=== PATIENT | female | born 1950 | race Caucasian/White ===

== ENCOUNTER 2023-07-16 13:01 | Emergency (ER) | payer SELFPAY ==
[2023-07-16 13:07] VITALS: BP 177/99; PULSE 72; RESP 20; TEMP 36.6; O2SAT 99
[2023-07-16 14:05] VITALS: PULSE 74; RESP 19; TEMP 36.5; O2SAT 97
--- NOTE | 2023-07-16 15:09 | ED.GENADUL_ITS ---
Discharge Plan Disposition Patient Disposition: Home Discharge Details Clinical Impression: History of shingles Primary Care Provider: Unknown,Unknown ED Provider: Katelin Akins Home Meds and New Rx's Prescriptions: New valacyclovir [Valtrex] 1 gram tablet 1,000 mg PO Q8H Qty: 21 0RF Discharge Instructions Additional Instructions: Take the Valtrex as prescribed Apply Benadryl topically, may apply hydrocortisone Wash your hands frequently Stay away from the elderly, people who have not had chickenpox or vaccine, immune suppressed, until lesions crusted over completely Return with spreading redness, fever, worsening pain Medical Decision Making Alert, oriented, pleasant 73-year-old female with dermatomal distribution of rash, vesicular in appearance without evidence of secondary cellulitis, afebrile and nontoxic Appearance of shingles, started on Valtrex, within a 48-hour period of onset Denies headache and alert and oriented, encouraged to have blood pressure rechecked by primary care physician Placed on referral list for PCP follow-up Return precautions reviewed and patient expressed understanding HPI General Date/Time Provider Initiated Documentation: 07/16/23 13:36 . HPI Narrative: This 73-year-old female presents with left lower abdominal and back pain with rash. For the past 2 days this has been present. She states also itchy. Denies fever or chills. States she is otherwise healthy, just relocated to the area. Did not receive shingles vaccine. Denies fever or chills Related Data Home Medications Medication Instructions Recorded Confirmed valacyclovir 1 gram tablet 1,000 mg PO Q8H #21 tabs 07/16/23 (Valtrex) Previous Rx's Medication Instructions Recorded valacyclovir 1 gram tablet 1,000 mg PO Q8H #21 tabs 07/16/23 (Valtrex) Allergies Allergy/AdvReac Type Severity Reaction Status Date / Time No Known Allergies Allergy Unverified 07/16/23 13:11 General Stated Complaint: [facility] AMY: 4 PFSH All Active Problems (Updated 07/16/23 @ 13:57 by MARIAM Swartz) History of shingles (Acute) Social History Smoking/Tobacco Use Status: Current every day Tobacco Type: cigarettes Smoking risk assessment performed?: Yes Alcohol Intake: current Substance use type: does not use Course Vital Signs Vital signs: Vital Signs Temperature 36.6 C 07/16/23 13:07 Pulse 72 07/16/23 13:07 Respiratory Rate 20 07/16/23 13:07 Blood Pressure 177/99 H 07/16/23 13:07 Pulse Oximetry 99 07/16/23 13:07 Temperature 36.5 C 07/16/23 14:05 Temperature Source Oral 07/16/23 13:07 Pulse 74 07/16/23 14:05 Respiratory Rate 19 07/16/23 14:05 Respiratory Effort Normal 07/16/23 13:12 Blood Pressure 177/99 H 07/16/23 13:07 Blood Pressure Position Sitting 07/16/23 13:07 Pulse Oximetry 97 07/16/23 14:05 Oxygen Delivery Method Room Air 07/16/23 13:07 Oxygen Flow Rate 0 07/16/23 13:07 Pain Level 0 07/16/23 14:05
--- NOTE | 2023-07-16 15:20 | NUR.NOTE ---
Sent a request to [employer] to help patient establish a primary care provider. Unfortunately the patient does not have a listed phone number for me to list.
== END 2023-07-16 14:10 | disposition home or self-care (01) ==
PROVIDERS: Emergency Provider Physician Assistant
DX: B02.9 Zoster without complications; R10.32 Left lower quadrant pain; M54.9 Dorsalgia, unspecified; F17.200 Nicotine dependence, unspecified, uncomplicated
CPT/HCPCS: 99282; 99283

== ENCOUNTER 2023-11-06 14:44 | Outpatient (REF) | payer MEDICARE, MEDICAID, SELFPAY ==
[2023-11-01 16:26] LABS: ALT 16 U/L (14-59); AST 13 U/L (15-37); Albumin 3.8 g/dL (3.4-5.0); Alkaline Phosphatase 123 U/L (46-116); Anion Gap 14.3 mmol/L (3-11); BUN 23 mg/dL (7-18); Bilirubin, Total 0.5 mg/dL (0.2-1.0); CO2 22.7 mmol/L (21.0-32.0); CREATININE 1.5 mg/dL (0.55-1.02); Calcium 9.9 mg/dL (8.5-10.1); Chloride 106 mmol/L (98-107); Estimated GFR 36.57 (mL/min/1.73m2); Glucose 125 mg/dL (74-106); Sodium 143 mmol/L (136-145); Total Protein 7.2 g/dL (6.4-8.2)
--- OUTSIDE RECORDS SUMMARY | 2023-11-06 14:47 | XMS_ITS | Continuity of Care Document ---
Author Name Unknown Organization [facility] Address [address] [place] [address] [facility] Date[facility] 07/06/23 - 07/06/23 [facility] [address] [place] [address] [place] Discharge Disposition: Home or Self Care Attending Physician: Braxton Medeiros MD Admitting Physician: Braxton Medeiros MD Allergies, Adverse Reactions, Alerts No Known Medication Allergies Assessment and Plan Diagnostic Tests Pending * Urine Culture 07/06/23 Medications No Known Medications Results Laboratory List Name Date Urinalysis Microscopic 07/06/23 Urinalysis with Micro if Indicated and C ulture if Indicated 07/06/23 CBC w/o Diff 07/06/23 Comprehensive Metabolic Panel (CMP) 06/22 02/11 Most recent to oldest [Reference Range]: 1 WBC [5.0-10.0 x10^3/mcL] 7.8 x10^3/mcL (07/06/23 6:52 PM) RBC [4.1-5.3 x10^6/mcL] 5.1 x10^6/mcL (07/06/23 6:52 PM) BUN [7-18 mg/dL] 15 mg/dL (07/06/23 6:52 PM) UA Color Yellow (07/06/23 6:57 PM) UA WBC [0-3] 3-5 *ABN* (07/06/23 6:57 PM) Glucose Level [74-106 mg/dL] 160 mg/dL *HI* (07/06/23 6:52 PM) Potassium Level [3.5-5.1 mmol/L] 3.1 mmo l/L *LOW* (07/06/23 6:52 PM) MCV [80.0-96.0 fL] 93.4 fL (07/06/23 6:52 PM) UA Urobilinogen Normal (07/06/23 6:57 PM) UA Bili [Negative] 1+ *ABN* (07/06/23 6:57 PM) UA Ketones Negative (07/06/23 6:57 PM) AST [15-37 unit/L] 17 unit/L (07/06/23 6:52 PM) ALT [14-59 unit/L] 23 unit/L (07/06/23 6:52 PM) MCHC [31.0-35.0 g/dL] 34.8 g/dL (07/06/23 6:52 PM) Sodium Level [136-145 mmol/L] 139 mmol/L (07/06/23 6:52 PM) UA RBC [0-2] 0-2 (07/06/23 6:57 PM) UA Leuk Est Negative (07/06/23 6:57 PM) UA Nitrite Negative (07/06/23 6:57 PM) UA Glucose [Negative] Negative (07/06/23 6:57 PM) Hct [37.0-47.0 %] 48.0 % *HI* (07/06/23 6:52 PM) UA Bacteria Rare /HPF (07/06/23 6:57 PM) Calcium Level [8.5-10.1 mg/dL] 8.9 mg/dL (07/06/23 6:52 PM) Albumin Level [3.4-5.0 g/dL] 3.5 g/dL (07/06/23 6:52 PM) Protein Total [6.4-8.2 g/dL] 7.1 g/dL (07/06/23 6:52 PM) UA Protein 2+ *ABN* (07/06/23 6:57 PM) MCH [26.0-32.0 pg] 32.5 pg *HI* (07/06/23 6:52 PM) Bilirubin Total [0.2-1.0 mg/dL] 1.2 mg/d L *HI* (07/06/23 6:52 PM) Hgb [12.0-16.0 g/dL] 16.7 g/dL *HI* (07/06/23 6:52 PM) Alk Phos [46-146 unit/L] 129 unit/L (07/06/23 6:52 PM) UA Blood Trace *ABN* (07/06/23 6:57 PM) UA Mucous None Seen /HPF (07/06/23 6:57 PM) UA Spec Grav 1.025 *NA* (07/06/23 6:57 PM) Platelets [130-450 x10^3/mcL] 206 x10^3/ mcL (07/06/23 6:52 PM) CO2 [21-32 mmol/L] 28 mmol/L (07/06/23 6:52 PM) UA Squam Epithelial [None Seen] Moderate *ABN* (07/06/23 6:57 PM) UA pH 6.5 *NA* (07/06/23 6:57 PM) eGFR Non-AA [>=60] 43 *LOW* (07/06/23 6:52 PM) eGFR AA [>=60] 43 *LOW* (07/06/23 6:52 PM) UA Appear Hazy *ABN* (07/06/23 6:57 PM) Chloride Level [98-107 mmol/L] 103 mmol/ L (07/06/23 6:52 PM) RDW-CV [11.5-14.5 %] 12.9 % (07/06/23 6:52 PM) UA Culture Ind?. Indicated (07/06/23 6:57 PM) Creatinine Level [0.55-1.02 mg/dL] 1.30 mg/dL *HI* (07/06/23 6:52 PM) UA Yeast [None Seen] Rare *ABN* (07/06/23 6:57 PM) Vital Signs Most recent to oldest [Reference Range]: 1 2 3 Temperature Temporal Artery [36-38 Deg C] 36.7 Deg C (07/06/23 6:03 PM) Peripheral Pulse Rate [60-100 bpm] 73 bpm (07/06/23 10:24 PM) 90 bpm (07/06/23 10:05 PM) 86 bpm (07/06/23 9:31 PM) Heart Rate Monitored [60-100 bpm] 77 bpm (07/06/23 10:24 PM) 84 bpm (07/06/23 10:05 PM) 86 bpm (07/06/23 9:31 PM) Respiratory Rate [12-24 br/min] 16 br/min (07/06/23 10:24 PM) 22 br/min (07/06/23 10:05 PM) 18 br/min (07/06/23 9:31 PM) Blood Pressure [90-140/60-90 mmHg] 229/117mmHg *HI* (07/06/23 10:24 PM) 191/112mmHg *HI* (07/06/23 10:05 PM) 140/127mmHg (07/06/23 8:44 PM) Weight 49.70 kg (07/06/23 6:03 PM) Weight Dosing 49.70 kg (07/06/23 6:13 PM) Height 147.000 cm (07/06/23 6:03 PM) Height/Length Dosing 147.000 cm (07/06/23 6:13 PM) Body Mass Index 23.000 kg/m2 (07/06/23 6:03 PM) Social History Social History Type Response Tobacco Current everyday tob acco user Tobacco Use:. 1/2 ppd per day. Sex EKG study * Event Display: Telemetry Strips Please click on link to view image. * Event Display: Telemetry Strips Please click on link to view image. * Event Display: Telemetry Strips Please click on link to view image. * Event Display: Telemetry Strips Please click on link to view image. * Event Display: Telemetry Strips Please click on link to view image. Physician Emergency department Note * Rudy Hurtado MD: PERFORM Event Display: ED Note Physician Authored Date: [id number] RIGO AMBRIZ :1950 Age:73 years Sex:Female Visit Date:07/06/2023 Emergency Medicine Physician Handoff Note Verbal report from ??Sung??at 9:02:05 PM, 07/06/2023. Summary:??73 y/o w/ 1 day LUQ abd pain, abdominal exam is benign, patient is taking p.o. well at time of patient care transferred. Vitals and completed studies were jointly reviewed, these are notable for:?HR 86, RR 15, BP 215/91, T 36.7?C, SaO2 97% on room air. ?WBC 7.8, Hb 16.7, sodium 139, potassium 3.1, AST 17, ALT 23, ALP 129, total bilirubin 1.2, creatinine 1.30. ?Urinalysis with rare bacteria, moderate squamous epithelial cells, negative nitrate, negative leukocyte esterase. ?? Pending:??CT abd/pelvis.? Anticipated disposition: Disposition per repeat evaluation and imaging. ?? Evaluation:?? I independently reviewed the prior provider's chart, nursing and triage note(s), vitals - and when available - labs, EKGs, and imaging studies.? CT abdomen/pelvis: No acute findings.? 10:15 PM repeat evaluation patient resting comfortably, notes that her symptoms have resolved in the ER, she is taking p.o. well, is ambulatory without discomfort, and she has no chest pain or shortness of breath (nor throughout the entire symptom course). ?? Disposition: Discharged with PCP follow-up recommended. ?? Impression: Abdominal pain. Electronically Signed on 07/06/23 10:19 PM Rudy Hurtado MD * Satinder Almaraz MD: PERFORM Event Display: ED Note Physician Authored Date: [id number] RIGO AMBRIZ :1950 Age:73 years Sex:Female Visit Date:07/06/2023 Basic Information Time Seen: Satinder Almaraz MD / 07/06/2023 18:45 Chief Complaint pt states that since yesterday has had some lower abdominal pain on the left side. no n/v/d. last BM yesterday, pt states was normal. no CP, no SOB. pressure on the area helps with pain History Of Present Illness: Presenting concern is abdominal pain. ??Time of onset is 1 day prior to admission. ??Rate of onset is gradual. ??Initial location is left upper quadrant. ??Current location is the same.?? Initial intensity is 6/10. ??Current intensity is 8/10.?? Quality of the pain is pressure. ??Radiation is none. ??Precipitating factors are none. ??Aggravating factors are none.?? Alleviating factors are none. ??Prior treatment is none.?? Course waxes and wanes. ??No similar prior episodes. ?? Thank you Review of Systems: Review of systems is negative for??fever, fatigue, chest pain, shortness of breath, nausea, vomiting, bowel problems, urinary symptoms, abnormal bleeding, headache.?? Patient does endorse decreased appetite??and new mild rhinorrhea. Physical Exam Vitals & Measurements T:??36.7?C ??(Temporal Artery)?? HR:??72??(Peripheral)?? HR:??71??(Monitored)?? RR:??24?? BP:??140/127?? SpO2:??98%?? HT:??147.000??cm?? WT:??49.70??kg?? BMI:??23.000?? Pain Score:??3?? O2 Therapy:??Room air?? Mental status normal. ??No respiratory distress.?? Chest auscultation is normal. ??Heart auscultation is normal.?? Back palpation is normal. ??Abdomen is soft and??minimal left upper quadrant tenderness.?? Extremities are normal. Medical Decision Making: At this point in the evaluation the problem complexity is low.?? Data complexity is low. ??Management risk are low. ??[facility] coding 18742.?? Patient is signed out to the care of ??Elan Gibbs. Procedure No Qualifying Data Assessment/Plan Ordered: CT Abdomen and Pelvis w/ Contrast, 07/06/23 19:42:00 EDT, Stat, Reason: luq pain, please include oral contrast, Transport Mode: Stretcher, Exam to be performed outside organization? Urine Culture, Urine, Stat collect, ST - Stat, 07/06/23 18:57:00 EDT, Once, Nurse collect, Collected, 07/06/23 18:57:00 EDT, Print Label, [id number] Diagnosis at this point in the evaluation is left upper quadrant pain of uncertain etiology. Problem List/Past Medical History Ongoing No qualifying data Historical No qualifying data Medication Administration Given acetaminophen, 1000 mg, IV Piggyback Allergies No Known Medication Allergies Social History Electronic Cigarette/Vaping Electronic Cigarette Use: Never. Tobacco Current everyday tobacco user Tobacco Use:. 1/2 ppd per day. Lab Results CBC and Differential?? LATEST RESULTS?? WBC?? 07/06/23 18:52?? 7.8?? RBC?? 07/06/23 18:52?? 5.1?? Hgb?? 07/06/23 18:52?? 16.7 ??High?? Hct?? 07/06/23 18:52?? 48.0 ??High?? MCV?? 07/06/23 18:52?? 93.4?? MCH?? 07/06/23 18:52?? 32.5 ??High?? MCHC?? 07/06/23 18:52?? 34.8?? RDW-CV?? 07/06/23 18:52?? 12.9?? Platelets?? 07/06/23 18:52?? 206? Routine Chemistry?? LATEST RESULTS?? Sodium Level?? 07/06/23 18:52?? 139?? Potassium Level?? 07/06/23 18:52?? 3.1 ??Low?? Chloride Level?? 07/06/23 18:52?? 103?? CO2?? 07/06/23 18:52?? 28?? Alk Phos?? 07/06/23 18:52?? 129?? AST?? 07/06/23 18:52?? 17?? ALT?? 07/06/23 18:52?? 23?? BUN?? 07/06/23 18:52?? 15?? Glucose Level?? 07/06/23 18:52?? 160 ??High?? Creatinine Level?? 07/06/23 18:52?? 1.30 ??High?? eGFR AA?? 07/06/23 18:52?? 43 ??Low?? eGFR Non-AA?? 07/06/23 18:52?? 43 ??Low?? Calcium Level?? 07/06/23 18:52?? 8.9?? Protein Total?? 07/06/23 18:52?? 7.1?? Albumin Level?? 07/06/23 18:52?? 3.5?? Bilirubin Total?? 07/06/23 18:52?? 1.2 ??High? UA Macroscopic?? LATEST RESULTS?? UA Color?? 07/06/23 18:57?? Yellow?? UA Appear?? 07/06/23 18:57?? Hazy Abnormal?? UA Glucose?? 07/06/23 18:57?? Negative?? UA Bili?? 07/06/23 18:57?? 1+ Abnormal?? UA Ketones?? 07/06/23 18:57?? Negative?? UA Spec Grav?? 07/06/23 18:57?? 1.025?? UA Blood?? 07/06/23 18:57?? Trace Abnormal?? UA pH?? 07/06/23 18:57?? 6.5?? UA Protein?? 07/06/23 18:57?? 2+ Abnormal?? UA Urobilinogen?? 07/06/23 18:57?? Normal?? UA Nitrite?? 07/06/23 18:57?? Negative?? UA Leuk Est?? 07/06/23 18:57?? Negative?? UA Culture Ind?.?? 07/06/23 18:57?? Indicated? UA Microscopic?? LATEST RESULTS?? UA WBC?? 07/06/23 18:57?? 3-5 Abnormal?? UA RBC?? 07/06/23 18:57?? 0-2?? UA Squam Epithelial?? 07/06/23 18:57?? Moderate Abnormal?? UA Yeast?? 07/06/23 18:57?? Rare Abnormal?? UA Mucous?? 07/06/23 18:57?? None Seen?? UA Bacteria?? 07/06/23 18:57?? Rare? Electronically Signed on 07/06/23 09:22 PM Almaraz, Satinder Garrick MD Emergency department Discharge instructions * Rudy Hurtado MD: PERFORM Event Display: ED Discharge Information Authored Date: [id number] RIGO AMBRIZ :1950 Age:73 years Sex:Female Visit Date:07/06/2023 Discharge Instructions We would like to thank you for allowing us to assist you with your healthcare needs. The following includes patient education materials and information regarding your injury/illness. ?? You were seen at [facility] for evaluation for evaluation of??abdominal pain. The time of your evaluation the cause of your symptoms is unclear. Please follow-up with your primary care physician on Friday or Friday for repeat evaluation and further care as needed.??Please read and follow all of the instructions below. ?? When calling for follow-up care, please make the office aware that this follow- up is from your recent emergency room visit.? Your care today was limited to identifying and treating emergent medical problems only. Many peoplehave subtle differences in their test results that require follow up with their outpatient physician(s) to correctly determine if this represents a normal variation or concerning abnormality with respect to your specific health.??The care given to you today was limited to identifying and treating emergent medical problems - you need to request a copy of all of your medical records from today's visit and follow up with your outpatient physician(s) to review both today's visit and your overall health. If you have any new symptoms or if you are at all concerned about your health please return immediately to the emergency department. ?? Prescriptions: If you are uninsured or have financial difficulties with filling your prescription(s), you may consider using a free pharmacy discount service such as [employer] ([employer]) or [employer] ([employer]). These services allow you to search for a medication on your phone (or computer) and obtain a coupon that usually has a significant discount from the [facility] [place] at a pharmacy. Your physician does not have a financial relationship with either of these services. You may also wish to speak with your physician to determine if lower cost prescriptions are possible. ?? Abdominal Pain The exact cause of your abdominal pain is not certain. Based upon the testing today you are felt brad at low risk for discharge. There are no current signs of a life threatening illness or injury. Your condition does not seem serious now; however, sometimes the signs of a serious problem may take more time to appear. For this reason, it is important for you to watch for any new symptoms, problems , or worsening of your condition. Over the next few days, the abdominal pain may come and go, or becontinuous. Other common symptoms can include nausea and vomiting. Sometimes it can be difficult totell if you feel nauseous, you may just feel bad and not associate that feeling with nausea. Constipation, diarrhea, and a fever may go along with the pain. The pain may continue even if treated correctly over the following days. Depending on how things go, sometimes the cause can become clear and may require further or different treatment. Additional evaluations, medications, or tests may be needed. ?? If your symptoms do not worsen but you are still having pain after 12-24 hours, please call your primary care physician to arrange for further evaluation.? Return to the emergency department if any of the following occur: ?Pain gets worse or moves to the right lower abdomen ?New or worsening vomiting or diarrhea ?Swelling of the abdomen ?Unable to pass gas or stool for more than 8 hours ?Fever of 100.4??F (38??C) or higher, or as directed by your healthcare provider. ?Blood in vomit or bowel movements (dark red or black color) ?If you have yellow skin or eyes or if you have dark brown urine. ?Weakness, dizziness ?Chest, arm, back, neck or jaw pain ?Unexpected vaginal bleeding or missed period ?Trouble breathing ?Confusion ?Fainting or loss of consciousness ?Rapid heart rate ?Seizure ?If you are light headed upon standing or passing out.?If you are otherwise concerned about your health. ?? Home Care ?Do not force yourself to eat, especially if having cramps, vomiting, or diarrhea. ?Water is important so you do not get dehydrated. Soup may also be good. Sports drinks may also help, especially if they are not too acidic. Make sure you don't drink sugary drinks as this can make things worse. Take liquids in small amounts.?Caffeine sometimes makes the pain and cramping worse. ?Avoid dairy products if you have vomiting or diarrhea. ?Don't eat large amounts at a time. Wait a few minutes between bites. ?Eat a diet low in fiber (called a low-residue diet). Foods allowed include refined breads, white rice, fruit and vegetable juices without pulp, tender meats. These foods will pass more easily through the intestine. ?Avoid whole-grain foods, whole fruits and vegetables, meats, seeds and nuts, fried or fatty foods, dairy, alcohol and spicy foods until your symptoms go away. ? Discharge Vitals Temperature??(Temporal Artery) 98.1 ??F (36.7 ??C) Heart Rate??(Peripheral) 90 Heart Rate??(Monitored) 84 Respiratory Rate?? 22 Blood Pressure?? 191/112?? Height?? 57.87 in (147.000 cm) Weight?? 109.59 lb (49.70 kg) BMI?? 23.000 Allergies No Known Medication Allergies You were treated today on an emergency basis; it may be burks to contact your primary care provider to notify them of your visit today. You may have been referred to your regular doctor or a specialist, please follow up as instructed. If your condition worsens or you can't get in to see the doctor, contact the Emergency Department. Tests Performed Medications and Immunizations Administered Given acetaminophen, 1000 mg, IV Piggyback Lab Test Name Test Result Date/Time WBC 7.8 x10^3/mcL 07/06/2023 18:52 EDT RBC 5.1 x10^6/mcL 07/06/2023 18:52 EDT Hgb 16.7 g/dL 07/06/2023 18:52 EDT Hct 48.0 % 07/06/2023 18:52 EDT MCV 93.4 fL 07/06/2023 18:52 EDT MCH 32.5 pg 07/06/2023 18:52 EDT MCHC 34.8 g/dL 07/06/2023 18:52 EDT RDW-CV 12.9 % 07/06/2023 18:52 EDT Platelets 206 x10^3/mcL 07/06/2023 18:52 EDT Sodium Level 139 mmol/L 07/06/2023 18:52 EDT Potassium Level 3.1 mmol/L 07/06/2023 18:52 EDT Chloride Level 103 mmol/L 07/06/2023 18:52 EDT CO2 28 mmol/L 07/06/2023 18:52 EDT Alk Phos 129 unit/L 07/06/2023 18:52 EDT AST 17 unit/L 07/06/2023 18:52 EDT ALT 23 unit/L 07/06/2023 18:52 EDT BUN 15 mg/dL 07/06/2023 18:52 EDT Glucose Level 160 mg/dL 07/06/2023 18:52 EDT Creatinine Level 1.30 mg/dL 07/06/2023 18:52 EDT eGFR AA 43 07/06/2023 18:52 EDT eGFR Non-AA 43 07/06/2023 18:52 EDT Calcium Level 8.9 mg/dL 07/06/2023 18:52 EDT Protein Total 7.1 g/dL 07/06/2023 18:52 EDT Albumin Level 3.5 g/dL 07/06/2023 18:52 EDT Bilirubin Total 1.2 mg/dL 07/06/2023 18:52 EDT UA Color YELLOW. 07/06/2023 18:57 EDT UA Appear Hazy- Cl[place]k 07/06/2023 18:57 EDT UA Glucose NEGATIVE 07/06/2023 18:57 EDT UA Bili 1+ 07/06/2023 18:57 EDT UA Ketones NEGATIVE 07/06/2023 18:57 EDT UA Spec Grav 1.025 07/06/2023 18:57 EDT UA Blood TRACE. 07/06/2023 18:57 EDT UA pH 6.5 07/06/2023 18:57 EDT UA Protein 2+ 07/06/2023 18:57 EDT UA Urobilinogen 0.2 Uro 07/06/2023 18:57 EDT UA Nitrite NEGATIVE 07/06/2023 18:57 EDT UA Leuk Est NEGATIVE 07/06/2023 18:57 EDT UA Culture Ind?. Indicated 07/06/2023 18:57 EDT UA WBC 3-5 07/06/2023 18:57 EDT UA RBC 0-2 07/06/2023 18:57 EDT UA Squam Epithelial Moderate 07/06/2023 18:57 EDT UA Yeast Rare 07/06/2023 18:57 EDT UA Mucous None Seen 07/06/2023 18:57 EDT UA Bacteria Rare 07/06/2023 18:57 EDT Patient/Courtesy Clerk Signature Patient Name:RIGO AMBRIZ I have received this information and my questions have been answered. Patient/Courtesy Clerk Name: Patient/Courtesy Clerk Signature: Relationship to Patient: Witness Name/Signature: Date: Electronically Signed on: 07/06/2023 22:21 EDTSigned by:SUSSY Emergency department Note * Dawn Da Silva H: PERFORM Event Display: ED Notes Authored Date: [id number] Patient Care team information Care Team Personnel Name: Carlo Reza Position: Nurse Member Role: Registered Nurse Name: Satinder Almaraz MD Position: Physician Member Role: ED Physician Address: Address: [address] [place] [id number] [place] Care Team Related Persons Name: ROBYN DRIVER
== END 2023-11-06 14:45 | disposition home or self-care (01) ==
LOC: LBN 14:44
PROVIDERS: Visit Provider Nurse Practitioner Family
DX: Z79.1 Long term (current) use of non-steroidal anti-inflammatories (NSAID) (principal)
CPT/HCPCS: 80053

== ENCOUNTER 2023-12-05 15:19 | Emergency (ER) | payer MEDICARE, MEDICAID, SELFPAY ==
[2023-12-05 15:22] VITALS: BP 210/84; PULSE 83; RESP 17; TEMP 36.4; O2SAT 99
[2023-12-05 15:39] VITALS: BP 210/84; PULSE 83; RESP 17; TEMP 36.4; O2SAT 99
--- NOTE | 2023-12-05 15:47 | ED.GENADUL_ITS ---
Discharge Plan Disposition Patient Disposition: Home Condition: Stable Discharge Details Clinical Impression: Dental infection Primary Care Provider: None,None ED Provider: Ceferino Joy Home Meds and New Rx's Prescriptions: New amoxicillin-pot clavulanate 875-125 mg tablet 1 tab PO BID 10 Days Qty: 20 0RF chlorhexidine gluconate 0.12 % mouthwash 15 ml buccal BID Qty: 1893 0RF Rx Instructions: swish and spit; do not swallow Discharge Instructions Instructions: Chlorhexidine (Into the mouth), Amoxicillin/Clavulanate Potassium (By mouth), Dental Abscess (ED) Additional Instructions: You were seen in the emergency department for your diffuse dental decay with likely dental infection without abscess. Please take the prescribed Augmentin twice per day for 10 days sent to [facility] in [place]. Please use the prescribed antiseptic mouth rinse twice per day as directed, use salt water gar gles 3 times per day. Please use therapeutic dosing of Tylenol (acetamenophen) & Advil (ibuprofen) in an alternating fashion as follows: Take 1000mg of Tylenol every 6 hours without missing doses- that is 4 times per day. Detention in between the Tylenol dosings, take 400-600mg of Advil also on a 6 hour schedule, that is also 4 times per day. The daily maximum dosing of Tylenol is 4000mg, and the daily maximum dosing of Advil is 2400mg. This is safe to do for weeks. Please note that some common cold medications & prescription pain medications may contain acetamenophen and you need to read OTC drug labels and factor that in to maximum daily dosings. Use topical Anbesol on the affected area to aid in pain before mealtimes and before bedtime. Please follow-up with a dentist to soon as possible for extraction. Please google search any and all dental providers in the area and try to get on cancellation list. Please follow-up about your high blood pressure with your primary care provider, your blood pressure was very high, please return to the emergency department at once for any sudden onset severe headaches, blurred vision, urinary symptoms or palpitations or chest pain. Return for progressing dental pain with facial swelling or redness, excessive drooling, inability to range your jaw, severe vocal changes. Referrals: [facility] [Provider Group] Discharge Data Discharge Date/Time-TO BE ENTERED AT DEPARTURE: 12/05/23 16:30 HPI General Date/Time Provider Initiated Documentation: 12/05/23 15:47 . HPI Narrative: 73 year-old female presents to ED today by POV/ambulating with a chief complaint of dental pain, L lower jaw- has diffusely missing or rotten teeth, with onset noted for the past two days. Quality described as throbbing, no radiation to trismus, fever, large swelling in gums, dysphagia, vocal changes, excessive drooling. Severity is described as 6-7/10. Palliating factors include nothing specific attempted. Provoking factors include nothing specific. Events leading up to the incident/Associated Symptoms: Patient has moved to the area recently, does have an appointment with PCP, does not have a dentist. Patient not anticoagulated. Related Data Home Medications Medication Instructions Recorded Confirmed amoxicillin 875 mg-potassium 1 tab PO BID dental infection 10 12/05/23 clavulanate 125 mg tablet days #20 tabs chlorhexidine gluconate 0.12 % 15 ml buccal BID dental infection 12/05/23 mouthwash #1,893 mL Previous Rx's Medication Instructions Recorded amoxicillin 875 mg-potassium 1 tab PO BID dental infection 10 12/05/23 clavulanate 125 mg tablet days #20 tabs chlorhexidine gluconate 0.12 % 15 ml buccal BID dental infection 12/05/23 mouthwash #1,893 mL Allergies Allergy/AdvReac Type Severity Reaction Status Date / Time No Known Allergies Allergy Unverified 12/05/23 15:27 General Stated Complaint: DentalOral AMY: 3 Review of Systems All systems reviewed & are unremarkable except as noted in HPI and below Exam Narrative Exam Narrative: GENERAL APPEARANCE: Well-nourished, non-toxic, awake and alert, atraumatic, no acute distress. SKIN: Warm, pink, dry, intact, without rashes/lesions/ulcerations. HEAD: Normocephalic, atraumatic, normal hair distribution for gender/age. EYES: Pupils PERRLA, EOMs intact without nystagmus, normal conjunctiva, no exudates on lids/lashes. ENT: Nares patent, no circumoral cyanosis, no facial swelling, uvula midline, many extracted teeth, the few remaining have diffuse decay, two L lower incision/canine very decayed- no gingival abscess to this area, no trismus, no vocal changes, no facial swelling/erythema. NECK: Supple, trachea midline, painless cervical ROM. LUNGS/CHEST: Non-labored respirations, normal A/P diameter, symmetrical expansion, no chest wall deformity HEART (CV/PV): No peripheral edema, no JVD. ABDOMEN: Soft, non-distended, no guarding. MSK: Normal ROM, no swelling/deformity to bilateral UEs or LEs, moving all extremities without weakness, no cyanosis, spine midline without tenderness, normal curvature. NEURO: Mental Status AAOx4 - alert to person, place, time, events No facial droop, no forehead involvement. Motor: No focal weakness - strength 5/5 in bilateral UEs and LEs, proximal and distal, symmetric. Sensory: sensation intact to light touch globally. Gait normal: patient ambulated without ataxia into ED room. PSYCH: euthymic, cooperative, pleasant, appropriate speech Course Vital Signs Vital signs: Vital Signs Temperature 36.4 C L 12/05/23 15:22 Pulse 83 12/05/23 15:22 Respiratory Rate 17 12/05/23 15:22 Blood Pressure 210/84 H 12/05/23 15:22 Pulse Oximetry 99 12/05/23 15:22 Temperature 36.4 C L 12/05/23 15:39 Pulse 83 12/05/23 15:39 Respiratory Rate 17 12/05/23 15:39 Respiratory Effort Normal 12/05/23 15:26 Blood Pressure 210/84 H 12/05/23 15:39 Blood Pressure Position Sitting 12/05/23 15:39 Pulse Oximetry 99 12/05/23 15:39 Oxygen Delivery Method Room Air 12/05/23 15:39 Oxygen Flow Rate 0 12/05/23 15:22 Pain Level 10 12/05/23 15:39 Comment pt states that it's a throbbing pain 12/05/23 15:39 Medical Decision Making This dictation utilizes [id number] dictation software and may contain unedited grammatical errors. 73 y/o F presents to ED today with a chief complaint of dental pain - severe diffuse decay, with many prior extractions, two left lower incisor/canine very decayed, denies fever/facial swelling. Patients' medical history: severe diffuse dental decay. Family and social history: noncontributory. Pertinent exam findings / vital signs include ENT: Nares patent, no circumoral cyanosis, no facial swelling, uvula midline, many extracted teeth, the few remaining have diffuse decay, two L lower incision/canine very decayed- no gin gival abscess to this area, no trismus, no vocal changes, no facial swelling/erythema. -Incidental HTN- patient does not take anything, states she is not normally high, states nervous/pain - deferred to [facility] for PCP appointment, counseled strict return. Differential / pathologies of concern include dental infection, abscess, not trismus, not [employer]. Diagnostic studies of: -none. Interventions of: -outpatient Rx for Augmentin, chlorhexidine. ED Course/Assessment/Plan: 73-year-old female has diffuse severe dental decay and reports some throbbing dental pain with her remaining left lower 2 teeth. There is no large gingival abscess, uvula midline, no trismus or facial swelling or erythema, I counseled her extensively on her high blood pressure she states that she has never norm ally high, denies any headache, blurred vision, palpitations or chest pain or urinary symptoms. She will follow-up with her PCP at the appointment she has established for initiation of primary care soon. Counseled her on finding local dentists and forwarded chart to [facility]. Findings not consistent with trismus, [employer], facial cellulitis, gingival abscess. Disposition of dental infection. Patient verbalized understanding of the plan and return to ED criteria and engaged in shared decision making. Quality:SDOH Health Related Social Needs: No Data to Display PFSH All Active Problems (Updated 12/05/23 @ 16:05 by MARIAM Moncada) Dental infection (Acute) Social History Smoking/Tobacco Use Status: Current every day Tobacco Type: cigarettes Smoking risk assessment performed?: Yes Alcohol Intake: current Drug use: Never Substance use type: does not use
[2023-12-05] MEDS: Acetaminophen 325 MG TAB 650 MG PO (16:29)
[2023-12-05 16:30] VITALS: BP 205/75; PULSE 71; RESP 17; O2SAT 98
== END 2023-12-05 16:30 | disposition home or self-care (01) ==
PROVIDERS: Emergency Provider Physician Assistant
DX: R68.84 Jaw pain (principal); K04.7 Periapical abscess without sinus
CPT/HCPCS: 99283

== ENCOUNTER 2023-12-11 13:34 | Outpatient (REF) | payer MEDICARE, MEDICAID, SELFPAY ==
[2023-12-11 16:59] LABS: Hemoglobin A1C 5.7 % (<5.7)
[2023-12-11 17:32] LABS: ALT 15 U/L (14-59); AST 12 U/L (15-37); Albumin 4.1 g/dL (3.4-5.0); Alkaline Phosphatase 94 U/L (46-116); Anion Gap 14.4 mmol/L (3-11); BUN 32 mg/dL (7-18); Bilirubin, Total 0.2 mg/dL (0.2-1.0); CO2 21.6 mmol/L (21.0-32.0); CREATININE 1.6 mg/dL (0.55-1.02); Calcium 9.5 mg/dL (8.5-10.1); Calculated LDL 85 mg/dL (<100); Chloride 109 mmol/L (98-107); Cholesterol 175 mg/dL (<200); Estimated GFR 33.84 (mL/min/1.73m2); Folate 7.1 ng/mL (8.6-20.0); Glucose 131 mg/dL (74-106); HDL Cholesterol 43 mg/dL (40-60); Magnesium 1.9 mg/dL (1.8-2.4); Potassium 3.7 mmol/L (3.5-5.1); Sodium 145 mmol/L (136-145); TSH 1.35 uIU/Ml (0.36-3.74); Total Protein 7.3 g/dL (6.4-8.2); Triglyceride 235 mg/dL (<150); Vitamin B12 214 pg/mL (193-986)
[2023-12-12 11:51] LABS: Syphilis Serology (RPR) Negative (Negative)
[2023-12-12 12:20] LABS: HIV-1/2 Ag & Ab Screen Negative (Negative)
== END 2023-12-11 13:35 | disposition home or self-care (01) ==
LOC: NCHCN 13:34
PROVIDERS: PCP Student in an Organized Health Care Education/Training Program; Visit Provider Student in an Organized Health Care Education/Training Program
DX: I10 Essential (primary) hypertension (principal); R41.3 Other amnesia
CPT/HCPCS: 80053; 80061; 87389; 82607; 82746; 83036; 83735; 84443; 86592

== ENCOUNTER → 2024-01-19 03:49 | Outpatient (CLI) | payer MEDICARE, MEDICAID, SELFPAY ==
--- NOTE | 2024-01-19 | DI.MRI_ITS ---
Exam(s) MR BRAIN WO EXAM: MR BRAIN WO CLINICAL HISTORY: POOR SHORT TERM MEMORY,R41.3 TECHNIQUE: Multiplanar multisequence MRI of the brain was performed. COMPARISON: No prior exams were available for comparison FINDINGS: CEREBRAL PARENCHYMA: There is no evidence of intracranial hemorrhage, mass effect, or shift of midline structures. There are no extra-axial fluid collections. Ventricles are not enlarged or shifted. There is no significant focal signal abnormality in the cerebellar hemispheres. There is a tiny focu s of increased signal in the right-side of the georgie. Remainder of the georgie as well as the midbrain a re unremarkable. Focus of signal abnormality in the right thalamus noted and there is also abundant bilateral partially confluent signal abnormality in the Alexsandra in supra ventricular regions consistent with chronic small vessel ischemic changes. There is no associated hemorrhage nor surrounding edema. However, there is a single small focus of restricted diffusion in the left periventricular white ma tter consistent with small lacunar infarct at this level which is more acute than the there are multi level findings. No hemorrhage. PITUITARY GLAND: No mass nor parasellar abnormality. No obvious abnormality in the cavernous sinuses. FLOW VOIDS: The expected flow void are noted. No evidence of obvious aneurysm nor obvious vascular ma lformation. PARANASAL SINUSES: The visualized paranasal sinuses appear unremarkable. No obvious finding ORBITS: No obvious findings. IMPRESSION: Although there is abundant bilateral periventricular signal abnormality consistent chronic small vess el disease, there is also a singular tiny focus of restricted diffusion in the left periventricular w gabbie matter consistent with acute lacunar infarct, nonhemorrhagic. DATA REPOSITORY:
== END ==
PROVIDERS: PCP Student in an Organized Health Care Education/Training Program; Visit Provider Student in an Organized Health Care Education/Training Program
DX: R41.3 Other amnesia (principal); R93.0 Abnormal findings on diagnostic imaging of skull and head, not elsewhere classified
CPT/HCPCS: 70551

== ENCOUNTER 2024-01-28 14:25 | Outpatient (REF) | payer MEDICARE, MEDICAID, SELFPAY ==
[2024-01-28 19:03] LABS: Abs Immature Grans 0.02 10^3/uL (0.0-0.06); Absolute Basophil Count 0.05 10^3/uL (0.0-0.2); Absolute Eosinophil Count 0.18 10^3/uL (0.0-0.7); Absolute Lymphocyte Count 2.91 10^3/uL (1.2-3.4); Absolute Monocyte Count 0.57 10^3/uL (0.1-0.8); Absolute Neutrophil Count 4.49 10^3/uL (1.2-6.7); Basophils % 0.6 %; Eosinophils % 2.2 %; HCT 36.2 % (36.0-46.0); HGB 12.6 g/dL (11.2-15.7); Immature Grans % 0.2 %; Lymphocytes % 35.4 %; MCH 30.7 pg (27.0-33.0); MCHC 34.8 % (32.0-36.0); MCV 88 fL (80-95); MPV 11.8 fL (8.0-11.0); Monocytes % 6.9 %; Neutrophils % 54.7 %; Platelet Count 241 10^3/uL (130-400); RDW 12.6 % (11.7-14.6); WBC 8.22 10^3/uL (4.4-10.8)
[2024-01-28 20:23] LABS: ALT 18 U/L (14-59); AST 14 U/L (15-37); Albumin 4.1 g/dL (3.4-5.0); Alkaline Phosphatase 108 U/L (46-116); Anion Gap 15.4 mmol/L (3-11); BUN 25 mg/dL (7-18); Bilirubin, Total 0.3 mg/dL (0.2-1.0); CO2 21.6 mmol/L (21.0-32.0); CREATININE 1.6 mg/dL (0.55-1.02); Calcium 9.6 mg/dL (8.5-10.1); Chloride 105 mmol/L (98-107); Estimated GFR 33.84 (mL/min/1.73m2); FREE T4 0.93 ng/dL (0.76-1.46); Glucose 148 mg/dL (74-106); Potassium 3.9 mmol/L (3.5-5.1); Sodium 142 mmol/L (136-145); TSH 1.23 uIU/Ml (0.36-3.74); Total Protein 7.3 g/dL (6.4-8.2)
== END 2024-01-28 14:26 | disposition home or self-care (01) ==
LOC: NCHCN 14:25
PROVIDERS: PCP Student in an Organized Health Care Education/Training Program; Visit Provider Student in an Organized Health Care Education/Training Program
DX: R63.4 Abnormal weight loss (principal)
CPT/HCPCS: 80053; 84439; 84443; 85025

== ENCOUNTER → 2024-03-02 03:44 | Outpatient (CLI) | payer MEDICARE, MEDICAID, SELFPAY ==
--- NOTE | 2024-03-02 | DI.MRI_ITS ---
Exam(s) MR ANGIO NECK WO EXAM: MR ANGIO NECK WO CLINICAL HISTORY: Lacunar infarction, I63.81; cognitive decline. TECHNIQUE: Multiplanar multisequence MRA of the Neck was performed. COMPARISON: MR MR BRAIN WO from 01/19/2024 FINDINGS: Common Carotid: Right: No dissection, occlusion or significant stenosis. Left: No dissection, occlusion or significant stenosis. External Carotid: Right: No evidence of occlusion or significant stenosis. Left: No evidence of occlusion or significant stenosis. Internal Carotid: Right: No dissection, occlusion or significant stenosis. Left: No dissection, occlusion or significant stenosis. Vertebral Artery: Right: The right vertebral artery is absent throughout its entire length. Left: No dissection, occlusion or significant stenosis. 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 DATA REPOSITORY:
--- NOTE | 2024-03-02 | DI.MRI_ITS ---
Exam(s) MR ANGIO BRAIN WO CLINICAL HISTORY: Lacunar infarction, I63.81; cognitive decline. TECHNIQUE: Multiplanar multisequence MRA of the brain was performed. COMPARISON: MR MR BRAIN WO from 01/19/2024 FINDINGS: Carotid Arteries: No aneurysm, occlusion or significant stenosis. Anterior Cerebral Arteries: Right: No aneurysm, occlusion or significant stenosis. Left: No aneurysm, occlusion or significant stenosis. Middle Cerebral Arteries: Right: No aneurysm, occlusion or significant stenosis. Left: No aneurysm, occlusion or significant stenosis. Posterior Cerebral Arteries: Right: No aneurysm, occlusion or significant stenosis. Left: No aneurysm, occlusion or significant stenosis. The left posterior cerebral artery arises from the left posterior communicating artery which is a normal variant. Vertebral Arteries: Right: No aneurysm, occlusion or significant stenosis. Left: No aneurysm, occlusion or significant stenosis. Basilar Artery: No aneurysm, occlusion or significant stenosis. IMPRESSION: No evidence of significant stenosis or occlusion on this MR angiography of the brain. DATA REPOSITORY:
== END ==
PROVIDERS: PCP Student in an Organized Health Care Education/Training Program; Visit Provider Student in an Organized Health Care Education/Training Program
DX: I63.81 Other cerebral infarction due to occlusion or stenosis of small artery (principal); I65.01 Occlusion and stenosis of right vertebral artery; R41.89 Other symptoms and signs involving cognitive functions and awareness
CPT/HCPCS: 70544; 70547

== ENCOUNTER → 2024-03-09 02:39 | Outpatient (CLI) | payer MEDICARE, MEDICAID, SELFPAY ==
--- NOTE | 2024-03-09 12:35 | DI.US_ITS ---
APPROVED REPORT EXAM: Comprehensive 2D, Doppler, and color-flow Echocardiogram Patient Location: Out-Patient Boiler Tender: Arlene Denise RDCS (AE) Indications: Cerebral infarction due to occlusion/stenosis of small artery, A Fib Other Information Study Quality: Adequate. Technically limited study due to body habitus smoker. Conclusion Normal left ventricular wall thickness and chamber size. Ejection fraction is 55 to 60%. Wall motio n is normal Normal right ventricular size and function Both atria are normal in size There are no structural valvular abnormalities Mild mitral regurgitation Estimated right ventricular systolic pressure is 23 mmHg Wall motion Left Ventricle The left ventricle is normal size. The left ventricular systolic function is normal. The left ventric ular ejection fraction is within the normal range. There is normal left ventricular wall thickness. T here is normal LV segmental wall motion. There is no ventricular septal defect visualized. LVEF is 55 -60%. Right Ventricle The right ventricle is normal size. The right ventricular systolic function is normal. Atria The left atrium size is normal. The right atrium size is normal. The interatrial septum is intact wit h no evidence for an atrial septal defect. Aortic Valve The aortic valve is normal in structure. Aortic valve is trileaflet. There is no aortic valvular sten osis. No aortic regurgitation is present. Mitral Valve The mitral valve is normal in structure. No evidence of mitral valve stenosis. Mild mitral regurgitat ion. Tricuspid Valve The tricuspid valve is normal in structure. There is no tricuspid valve stenosis. Trace tricuspid reg urgitation. The RVSP is 22.9mmHg. Pulmonic Valve The pulmonary valve is normal in structure. There is no pulmonic valvular stenosis. Trace pulmonic re gurgitation. Great Vessels The aortic root is normal in size. The ascending aorta is normal in size. Aortic arch is not well vis ualized. IVC is normal in size and collapses >50% with inspiration. Pericardium There is no pericardial effusion. 2D Dimensions IVSD d PLAX 0.83 cm F: 0.6-1.0 Ao Root d 2.36 cm F: 2.7 - 3.3 LVPW d PLAX 0.80 cm F: 0.6 - 1.0 Ao Asc Diam d 2.83 cm F: 2.3 - 3.1 LVID d PLAX 4.58 cm F: 3.8 - 5.2 LVDs 3.27 cm F: 2.2 - 3.5 LV EF Teichholz 55.2 % FS 28.63 % LV EDV (Teich) 96.4 mL LV ESV (Teich) 43.2 mL M-Mode TAPSE 1.77 cm (M/F) >1.7 Auto EF LV EDV A4C 70.6 mL LV EDV A2C 76.3 mL LV EDV BP 72.9 mL LV ESV A4C 28.3 mL LV ESV A2C 31.0 mL LV ESV BP 29.9 mL LVEF(%) A4C 59.9 % LVEF(%) A2C 59.4 % LVEF(%) BP 59.0 % LV SV A4C 42.3 ml LV SV A2C 45.3 ml LV SV BP 43.0 ml LV CO A4C 2.3 L/min LV CO A2C 2.4 L/min LV CO BP 2.3 L/min HR A4C 54.71 BPM HR A2C 52.40 BPM LV EDV Index (BP) LA Volume LA Length A4C 4.4 cm LA Length A2C 5.4 cm LA Area A4C s 14.55 cm2 LA Area A2C s 17.20 cm2 LA Vol A4C A-L 40.43 mL LA Vol A2C A-L 46.29 mL LA Vol Biplane A-L 47.8 mL LA Vol/BSA A4C A-L LA Vol/BSA A2C A-L LA Vol/BSA BP A-L 35.1 mL/m2 LA Vol A4C MOD 37.3 mL LA Vol A2C MOD 44.5 mL LA Vol BP MOD 44.9 mL RA Volume RA Area A4C 9.3 cm2 RA ESV A4C (A-L) 19.0mL RA Vol/BSA A4C A-L RA Length A4C 3.9 cm RA ESV A4C (MOD) 18.4mL LV Diastology MV E' medial 0.056 (>0.07 m/s) MV E Vmax 1.28 (0.4-1.3 m/s) MV E/E' MED 22.79 (<14) MV A Vmax 0.90 (0.4-1.3 m/s) MV E' lateral 0.081 (>0.1 m/s) E/A Ratio 1.4 MV E/E' LAT 15.77 (<14) MV E' Average 0.069 m/s MV E/E'(average) 18.64 Aortic Valve AoV Vmax 1.07 m/s LVOT Vmax 0.94 m/s AoV Peak Grad 4.6 mmHg LVOT Peak Grad 3.6 mmHg AoV Area (Vmax) 2.16 cm2 LVOT VTI 0.269 m AoV VTI 0.307 m LVOT Mean Grad 2.3 mmHg AoV Mean Reginaldo. 0.78 m/s LVOT SV 66.11 mL AoV Mean Grad 2.7 mmHg LVOT Diam s 1.75 cm AoV Area (VTI) 2.15 cm2 Velocity Ratio 0.88 Mitral Valve MV DT 128 (160-240 msec) MV Vmax TIPS 1.25 m/s MV Mean Grad 1.9 (<2mmHg) MV VTI 0.388 m Pulmonary Valve PV Vmax 0.99 (0.5-1.5 m/s) RVOT Vmax 0.79 m/s PV Peak Grad 3.9 mmHg RVOT Peak Gr. 2.5 mmHg PV Mean Reginaldo 0.73 m/s RVOT VTI 0.203 m PV Mean Grad 2.4 mmHg RVOT Mean Gr. 1.5 mmHg Tricuspid Valve RA Pressure 3.00 mmHg TR Vmax 2.23 m/s TV S' 0.11 m/s TR Peak Grad 19.9 mmHg RVSP (TR) 22.9 mmHg
--- NOTE | 2024-03-09 13:28 | DI.CT_ITS ---
Exam(s) CT CHEST WO EXAM: CT CHEST WO CLINICAL HISTORY: R05.3 Chronic cough, 45 pack year hx, cough 4 MOS duration and 9lb wet loss TECHNIQUE: Imaging Protocol: Axial computed tomography images with coronal and sagittal reformatted images were created and reviewed CONTRAST MATERIAL: Contrast. COMPARISON: No exams were available for comparison FINDINGS: Pulmonary parenchyma: No consolidation. No dominant measurable mass. Minimal apical scarring. No si gnificant emphysematous changes. Tracheobronchial tree: No bronchiectasis or mucous plugging. Mediastinum and Surekha: No dominant adenopathy or fluid collection. Surgical clips. Pleura: No effusion. No pneumothorax. Heart: The heart is mildly dilated. Mild coronary artery calcifications are seen. Aorta: Thoracic aorta non-dilated. Mild atherosclerotic changes. Upper abdomen: No acute findings.. Bones: Degenerative changes in the spine. Mild scoliosis. Sternal wires. Soft tissues: Unremarkable. IMPRESSION: No acute abnormality. RADIATION DOSE DELIVERED: 348.53mGy.cm Total DLP DATA REPOSITORY: All CT scans at this facility are submitted to the National Radiology Data Registry (NRDR) Dose Index Registry (DIR) with the [employer] ([employer]). RADIATION OPTIMIZATION: All CT scans at this facility use at least one of these dose optimization te chniques: automated exposure control; mA and/or kV adjustment per patient size (includes targeted exa ms where dose is matched to clinical indication); or iterative reconstruction.
== END ==
PROVIDERS: PCP Student in an Organized Health Care Education/Training Program; Visit Provider Student in an Organized Health Care Education/Training Program
DX: I63.81 Other cerebral infarction due to occlusion or stenosis of small artery (principal)
CPT/HCPCS: 71250; 93306

== ENCOUNTER 2024-05-14 21:54 | Outpatient (REF) | payer MEDICARE, MEDICAID, SELFPAY ==
[2024-05-14 21:27] LABS: Bacteria Moderate HPF (Negative); C & S Indicated? C&S Done As Ordered; Casts Negative LPF (Negative); Crystals Negative HPF (Negative); Epithelial Cells Moderate HPF (Negative); Mucus Negative (Negative)
== END 2024-05-14 21:55 | disposition home or self-care (01) ==
LOC: LBN 21:54
PROVIDERS: PCP Student in an Organized Health Care Education/Training Program; Visit Provider Physician Assistant Medical
DX: R30.0 Dysuria (principal)
CPT/HCPCS: 81015; 87086

== ENCOUNTER 2024-06-12 16:55 | Inpatient (IN) | payer MEDICARE, MEDICAID, SELFPAY ==
[2024-06-12] VITALS (184 sets, daily range): BP systolic 144–223; BP diastolic 54–193; PULSE 46–68; RESP 11–32; TEMP 35.8; O2SAT 97–100
--- NOTE | 2024-06-12 16:45 | RT.EKG_ITS ---
APPROVED REPORT Exam: Resting ECG Reason for Exam: [facility] Patient Location: E HR:62 bpm ECG Measurements Heart Rate 62 AXIS AR 126 P 71 QRSd 90 QRS 88 QT 418 T -2 QTc 424 Conclusion Sinus rhythm...normal P axis, V-rate 60- 99 Nonspecific repol abnormality, diffuse leads...ST dep, T flat/neg, ant/lat/inf sinus rhythm, normal axis, consider inferior lateral st depressions
--- NOTE | 2024-06-12 17:15 | DI.RAD_ITS ---
Exam(s) XR PELVIS AP EXAM: XR PELVIS AP CLINICAL HISTORY: ams, remote fall. TECHNIQUE: 2D digital imaging was performed. COMPARISON: No exams were available for comparison FINDINGS: Single AP view of the pelvis-hips No evidence of obvious pelvic nor hip fracture. SI joints appear unremarkable. Minimal degenerative changes in the left hip. IMPRESSION: No pelvic nor hip fractures evident on this single view. DATA REPOSITORY: RADIATION DOSE DELIVERED:
--- NOTE | 2024-06-12 17:15 | DI.CT_ITS ---
Exam(s) CT HEAD WO EXAM: CT HEAD WO CLINICAL HISTORY: ams. TECHNIQUE: Imaging Protocol: Axial computed tomography images with coronal and sagittal reformatted images were created and reviewed COMPARISON: Prior brain MRI of 01/19/2024 was reviewed. FINDINGS: There are no skull fractures. There is no fluid in the visualized paranasal sinuses. There is a large area of acute infarction in the right occipital parietal region, not previously evid ent on MRI scan of 01/19/2024 there is ribbon like sulcal hyperdensity in this region which may repre sent some petechial hemorrhage. The above findings are superimposed upon abundant bilateral periventricular hypodensity consistent wi th chronic small vessel disease, as evident on the prior MRI study. There is also a small nonhemorrh agic lacunar infarct in the right basal ganglia again noted. IMPRESSION: Large area of acute infarct in the right occipital parietal region. Within this area is ribbon like hyperdensity consistent with probable petechial hemorrhage at the level the sulci. The above findings are superimposed upon abundant bilateral periventricular white matter disease, as was evident on prior MRI study of 01/19/2024. Report called by myself to ER physician 06/12/2024 at 6:35 p.m. RADIATION DOSE DELIVERED: 848.52mGy.cm Total DLP DATA REPOSITORY: All CT scans at this facility are submitted to the National Radiology Data Registry (NRDR) Dose Index Registry (DIR) with the [employer] (ACR). RADIATION OPTIMIZATION: All CT scans at this facility use at least one of these dose optimization te chniques: automated exposure control; mA and/or kV adjustment per patient size (includes targeted exa ms where dose is matched to clinical indication); or iterative reconstruction.
--- NOTE | 2024-06-12 17:15 | DI.RAD_ITS ---
Exam(s) XR CHEST 2V PA LATERAL EXAM: XR CHEST 2V PA LATERAL CLINICAL HISTORY: ams. TECHNIQUE: 2D digital imaging was performed. COMPARISON: No exams were available for comparison FINDINGS: 2 views: There is sternotomy wires. Heart size is normal. The mediastinum is not widened. Lungs are clear. No infiltrates nor pleural effusions. IMPRESSION: No acute pulmonary findings. Previous sternotomy. Normal heart size. No CHF. DATA REPOSITORY: RADIATION DOSE DELIVERED:
--- NOTE | 2024-06-12 17:52 | ED.GENADUL_ITS ---
Discharge Plan Discharge Details Chief Complaint: AMS/LOC Primary Care Provider: Maximo Lainez ED Provider: Soto Hope Home Meds and New Rx's Prescriptions: No Action chlorhexidine gluconate 0.12 % mouthwash 15 ml buccal BID Qty: 1893 0RF Rx Instructions: swish and spit; do not swallow sertraline 25 mg tablet 25 mg PO DAILY Patient Comments: TAKE ONE TABLET BY MOUTH EVERY DAY aspirin 81 mg tablet,delayed release (DR/EC) 81 mg PO ONCE Patient Comments: TAKE 1 TABLET BY MOUTH EVERY DAY albuterol sulfate 90 mcg/actuation HFA aerosol inhaler 2 inh INHALATION Q4H Patient Comments: INHALE 2 PUFFS BY MOUTH EVERY 4 HOURS NEEDED metoprolol tartrate 25 mg tablet 25 mg PO DAILY Patient Comments: TAKE ONE TABLET BY MOUTH TWICE A DAY atorvastatin 20 mg tablet 20 mg PO ONCE Patient Comments: TAKE ONE TABLET BY MOUTH EVERY EVENING TO LOWER CHOLESTEROL HPI General Date/Time Provider Initiated Documentation: 06/12/24 17:16 . HPI Narrative: 73-year-old female history of CVA, dementia brought in by niece for evaluation of altered mental status over the last 3 days acting off not engaging in her normal activities is less physical trouble expressing herself and following commands Related Data Home Medications ?Medication ?Instructions ?Recorded ?Confirmed chlorhexidine gluconate 0.12 % 15 ml buccal BID dental infection 12/05/23 06/12/24 mouthwash #1,893 mL albuterol sulfate 90 mcg/actuation 2 inh inhalation Q4H 06/12/24 06/12/24 aerosol inhaler aspirin 81 mg tablet,delayed 81 mg PO ONCE 06/12/24 06/12/24 release atorvastatin 20 mg tablet 20 mg PO ONCE 06/12/24 06/12/24 metoprolol tartrate 25 mg tablet 25 mg PO DAILY 06/12/24 06/12/24 sertraline 25 mg tablet 25 mg PO DAILY 06/12/24 06/12/24 Previous Rx's ?Medication ?Instructions ?Recorded chlorhexidine gluconate 0.12 % 15 ml buccal BID dental infection 12/05/23 mouthwash #1,893 mL Allergies Allergy/AdvReac Type Severity Reaction Status Date / Time No Known Allergies Allergy Unverified 06/12/24 17:08 General Stated Complaint: AMS/LOC AMY: 3 Exam Narrative Exam Narrative: Resting comfortably alert and interactive Moist mucous membranes tongue secretions Normal respiratory effort lungs clear bilaterally no wheezes rales or rhonchi Normal heart sounds no murmurs rubs or gallops Soft supple neck nonmeningeal Abdomen soft nontender nondistended Pelvis stable moving bilateral lower extremities without deficit no signs of trauma no peripheral edema Cranial nerves II through XII intact 5-5 strength upper lower extremities bilaterally, normal sensation no ataxia Course Vital Signs Vital signs: Vital Signs Temperature 35.8 C L 06/12/24 17:02 Pulse 68 06/12/24 17:02 Respiratory Rate 16 06/12/24 17:02 Blood Pressure 171/74 H 06/12/24 17:02 Pulse Oximetry 97 06/12/24 17:02 Temperature 35.8 C L 06/12/24 17:02 Pulse 68 06/12/24 17:02 Respiratory Rate 16 06/12/24 17:31 Respiratory Effort Normal, Non-Labored 06/12/24 17:31 Respiratory Depth Normal 06/12/24 17:31 Respiratory Pattern Normal 06/12/24 17:31 Blood Pressure 171/74 H 06/12/24 17:02 Pulse Oximetry 97 06/12/24 17:02 Pain Level 0 06/12/24 17:02 Medical Decision Making 73-year-old female history of CVA dementia brought in by niece for altered mental status over the last 3 days less interactive less verbal less physical trouble expressing herself and following commands, patient noted be hypertensive arrival afebrile nontoxic nonmeningeal nonfocal neurologically, cardiopulmonary exam unremarkable GI exam unremarkable, no external signs of trauma no signs of intoxication, consider electrolyte derangement versus dehydration versus UTI versus viral illness versus less likely CVA versus progressive dementia lower suspicion for seizures lower suspicion for toxicologic process will obtain CT head chest x-ray urinalysis COVID flu RSV swab basic labs toxicologic labs ammonia, light fluid close reassessment 18: 50 evidence of acute infarct right occipital parietal region with some component of hyperdensity concerning for petechial hemorrhage. I have initiated telemetry neuro consultation through [facility] system. Patient maintaining mental status tolerating secretions normal respirations 19: 59 patient resting and with no acute distress. Evaluated by Dr. Jefferson of teleneurology [facility] who agrees that patient has had likely subacute right occipital parietal stroke, evidence of left hemianopsia, agnosia and ocular m otor apraxia, recommending medical management with aspirin 325 loading, Plavix 300 mg loading to transition to aspirin 81 mg daily and Plavix 75 mg daily for 3 weeks, blood pressure control as needed, repeat CT in the morning to ensure no hemorrhagic conversion, recommending CT CTA head and neck echocardiogram telemetry monitoring and MRI when available. 23: 25 CTA head and neck showing stenosis of right cavernous internal carotid artery as well as stenosis of vertebral system and MCA, neurology team recommending vascular surgical consult. Awaiting callback. Patient remained stable 06/13 12: 42 awaiting vascular callback just received update from [facility] Quality:[facility] Health Related Social Needs: No Data to Display [facility] Social History Smoking/Tobacco Use Status: Current every day Tobacco Type: cigarettes Smoking risk assessment performed?: Yes Alcohol Intake: current Drug use: Never Substance use type: does not use Housing: apartment Do you feel safe at home: Yes Do you feel safe in your relationship?: Yes Sign Out Sign Out Data: Sign Out Comment: Right occipital parietal stroke (3 days old), severe ICA and vertebral art stenosis, pending vascular consult, if no intervention admit to [facility] for medical management; already reviewed with tele neuro Last updated by Soto Hope MD at 06/13/24 00:23
[2024-06-12 17:53] LABS: BE (Venous) -4 mmol/L (-2-3); HCO3 (Venous) 22 mmol/L (23-28); O2 Sat (Venous) 57 %; TCO2 (Venous) 21 mmol/L (24-29); pCO2 (Venous) 45 mmHg (41-51); pO2 (Venous) 31 mmHg
[2024-06-12 17:54] LABS: Abs Immature Grans 0.02 10^3/uL (0.0-0.06); Absolute Basophil Count 0.06 10^3/uL (0.0-0.2); Absolute Eosinophil Count 0.17 10^3/uL (0.0-0.7); Absolute Lymphocyte Count 2.47 10^3/uL (1.2-3.4); Absolute Monocyte Count 0.37 10^3/uL (0.1-0.8); Absolute Neutrophil Count 4.32 10^3/uL (1.2-6.7); Basophils % 0.8 %; Eosinophils % 2.3 %; HCT 34.8 % (36.0-46.0); HGB 11.9 g/dL (11.2-15.7); Immature Grans % 0.3 %; Lymphocytes % 33.3 %; MCH 31.2 pg (27.0-33.0); MCHC 34.2 % (32.0-36.0); MCV 91 fL (80-95); MPV 10.8 fL (8.0-11.0); Neutrophils % 58.3 %; Platelet Count 211 10^3/uL (130-400); RBC 3.82 10^6/uL (3.93-5.22); RDW 12.2 % (11.7-14.6); RDW-SD 40.3 fL; WBC 7.41 10^3/uL (4.4-10.8)
[2024-06-12 18:08] LABS: PTT Activated 22.1 sec (23.6-32.8); Prothrombin Time 9.9 sec (9.1-11.1)
[2024-06-12 18:09] LABS: Ammonia < 10 umol/L (11-32)
[2024-06-12 18:19] LABS: Anion Gap 12.2 mmol/L (3-11); Bilirubin, Total 0.52 mg/dL (0.2-1.0); CO2 23.8 mmol/L (21.0-32.0); Chloride 108 mmol/L (98-107); Creatine Kinase 81 U/L (26-192); Potassium 3.6 mmol/L (3.5-5.1); Sodium 144 mmol/L (136-145); Total Protein 7.4 g/dL (6.4-8.2)
[2024-06-12 18:19] LABS: Acetaminophen < 2 ug/mL (10-30)
[2024-06-12 18:32] LABS: COVID-19 PCR Negative (Negative); Influenza A PCR Negative (Negative); Influenza B PCR Negative (Negative); RSV PCR Negative (Negative)
[2024-06-12 18:33] LABS: Source Nasopharynx
[2024-06-12 18:41] LABS: ALT 15 U/L (14-59); AST 15 U/L (15-37); Albumin 3.9 g/dL (3.4-5.0); Alkaline Phosphatase 101 U/L (46-116); BUN 37 mg/dL (7-18); CREATININE 1.7 mg/dL (0.55-1.02); Calcium 9.5 mg/dL (8.5-10.1); Estimated GFR 31.47 (mL/min/1.73m2); Glucose 162 mg/dL (74-106); TSH (W/Ref FT4) 1.49 uIU/mL (0.36-3.74)
[2024-06-12 18:42] LABS: ETHANOL BLOOD < 3.0 mg/dL (<10)
[2024-06-12 18:51] LABS: Lipase 71 U/L (16-77)
--- NOTE | 2024-06-12 20:00 | DI.CT_ITS ---
Exam(s) CT BRAIN NECK CTA EXAM: CT BRAIN NECK CTA CLINICAL HISTORY: occipital stroke. TECHNIQUE: Imaging Protocol: Axial CT angiography was performed with multi-slice acquisition and mu lti-planar and/or 3D reconstructions. CONTRAST MATERIAL: Intravenous: Omnipaque 350 Contrast volume:structured data in ml COMPARISON: CT CT HEAD WO from 06/12/2024 FINDINGS: CTA Neck W: Aortic arch anatomy: The aortic arch anatomy is conventional and there is no significant stenosis at the origin of the great vessels off of the aortic arch. No intimal flap evident. Sternotomy wires a re noted. Anterior circulation: Both common carotid arteries ascend with normal luminal diameters. There is calcified plaque at the level both carotid bulbs and proximal ICAs in the neck. On the right side there is calcified plaque posteriorly at the carotid bulb-bifurcation level and the re is also calcified plaque on the medial and posterior saldaña of the proximal right ICA. Amount of s tenosis at this level is estimated at approximately 40 percent in the proximal right ICA. The right ICA is nicely patent in the upper neck. Left carotid bulb exhibits some calcified plaque anteriorly. There is calcified plaque on the pharmacy benefit manager ior wall the proximal left ICA. Approximately 30 percent stenosis at this level. There is also self like plaque at the origin left ICA with more prominent stenosis at this level, approximately 70 perc ent. Left ICA in the upper neck is patent. Posterior circulation: Both vertebral arteries originate in conventional fashion off of the subclavian arteries. The left v ertebral artery is dominant and ascends with normal luminal diameter of 4.5 mm within the foramen tra nsversarium. The right vertebral artery exhibits tight stenosis at its origin off the right subclavian artery. Th e right vertebral artery ascends as a thin diameter vessel (1.5 mm) within the right foramen transver sarium and exhibits multiple areas of stenosis within this vessel. However, at the skull base it neil s appear to contribute to the formation of the basilar artery. CTA Brain W: Anterior circulation: Both internal carotid arteries are patent in the skull base-carotid canals. Both intra cavernous int ernal carotid arteries are peripherally calcified. There is a significant focal stenosis at the junc tion of the intra cavernous and supraclinoid aspect of the right internal carotid artery with approxi mately 80 percent stenosis at this level. Supraclinoid aspects of both ICAs are patent. Both A1 segments are patent although focal stenosis is noted in the distal left A1 segment. Both anterior cerebral arteries are patent and there is no ane urysm at the level of the anterior communicating artery. Left posterior cerebral artery is patent without significant stenosis. There is mild-moderate narrow ing in the proximal right middle cerebral artery. No intraluminal thrombus seen. No aneurysms. No dissection flaps. Posterior circulation: The basilar artery ascends in the midline. Distally it gives off patent right posterior cerebral art heather although there is a moderate stenosis in the posterior cerebral artery a few cm distal to its ben gin. The left posterior cerebral artery is predominantly fed by a posterior communicating artery on the left side of the ispbnu-si-Tjries. This that There is no evidence of aneurysm at the tip of the basilar artery nor elsewhere in the [id number] is. CT BRAIN: Again noted is the right occipital parietal infarct. Difficult to compare to the prior study as ther e was no noncontrast scan done prior to contrast injection on the present study. Nevertheless, the a mount of probable petechial hemorrhage at the site of the infarct is stable. There is no large incre asing intra-axial nor extra-axial hemorrhage. There are no ring enhancing lesions in the brain. IMPRESSION: 1. Relatively stable appearance of the right parieto-occipital infarct which again exhibits some renny chial hemorrhage but difficult to compared to previous as there was no noninfused ran done prior to t he CT angio injection. 2. There is significant calcified and noncalcified plaque in the carotid arteries on both sides the neck, with approximately 40 percent stenosis in the right ICA and 30 percent stenosis in the proximal left ICA. 3. The left vertebral artery is dominant. The right vertebral artery is a thin vessel throughout it s length also exhibiting multiple stenoses. Nevertheless, does contribute to the formation of the ba silar artery at the skull base. 4. There are no ring enhancing lesions in the brain. RADIATION DOSE DELIVERED: 1,900.42mGy.cm Total DLP DATA REPOSITORY: All CT scans at this facility are submitted to the National Radiology Data Registry (NRDR) Dose Index Registry (DIR) with the [employer] (ACR). RADIATION OPTIMIZATION: All CT scans at this facility use at least one of these dose optimization te chniques: automated exposure control; mA and/or kV adjustment per patient size (includes targeted exa ms where dose is matched to clinical indication); or iterative reconstruction.
[2024-06-12 20:02] LABS: Bilirubin Negative (Negative); Blood Negative (Negative); Clarity Clear (Clear); Glucose Negative (Negative); Ketones Negative (Negative); Leukocyte Esterase Negative (Negative); Nitrite Negative (Negative); Specific Gravity 1.025 (1.005-1.025); Urobilinogen 0.2 mg/dL (Up to 0.2); pH 5.5 (5-8)
[2024-06-12 20:07] LABS: WBC Negative HPF (0-5)
[2024-06-12 20:08] LABS: Bacteria Rare HPF (Negative); C & S Indicated? No; Casts Negative LPF (Negative); Crystals Negative HPF (Negative); Epithelial Cells Rare HPF (Negative); Mucus Negative (Negative); RBC Negative HPF (0-2)
[2024-06-12 20:19] LABS: *AMPHETAMINES SCREEN URINE Negative (Negative); *BARBITURATES SCREEN URINE Negative (Negative); *BENZODIAZEPINES SCREEN URINE Negative (Negative); Cannabinoids THC Negative (Negative); Cocaine Screen,Urine Negative (Negative); METHADONE URINE SCREEN Negative (Negative); OPIATES URINE SCREEN Negative (Negative); Tricyclic Antidepressants Negative (Negative)
--- NOTE | 2024-06-12 20:21 | NUR.NOTE ---
Nursing Note: Late entry Pt sitting up in bed awaiting tele neuro, pt is able to state who the visitors, the pt has visual deficits to left eye. the pt is able to move all extremities with demonstration, difficulty understanding commands such as lifting her arms and legs, pt able to state objects and names, no slurred speech. no facial droop. pt able to stand without support, but is unsteady when walking. no unequal extremity weakness. ambulated to the with template reproduction technician
[2024-06-12] MEDS: Normal Saline 500 ML 1000 ML IV (20:39)
[2024-06-12] MEDS: Omnipaque 350 MG/ML 100 ML BTL IJ (21:28)
[2024-06-12] MEDS: Normal Saline - Diluent 50 ML VIAL IJ (21:29)
--- NOTE | 2024-06-12 21:44 | DI.VRAD_ITS ---
PROCEDURE INFORMATION: Exam: CTA Head Without And With Contrast, Arteriography Exam date and time: 06/12/2024 8:34 PM Age: 73 years old Clinical indication: Condition or disease; Other: Occipital stroke TECHNIQUE: Imaging protocol: Computed tomographic angiography of the head without and with contrast. Exam focused on the arteries. 3D rendering (Not supervised by radiologist): MIP and/or 3D reconstructed images were created by the technologist. Other technique: STROKE PROTOCOL was implemented. COMPARISON: MR ANGIO BRAIN WO 03/02/2024 1:09 PM FINDINGS: ANTERIOR CIRCULATION: Right internal carotid artery: Calcified plaque with severe stenosis cavernous right ICA. Right middle cerebral artery: Moderate to severe stenosis posterior M3 branch right MCA. No significant stenosis remainder of the right MCA. Right anterior cerebral artery: No occlusion or significant stenosis. No aneurysm. Left internal carotid artery: Calcified plaque with moderate stenosis cavernous left ICA. Left middle cerebral artery: No occlusion or significant stenosis. No aneurysm. Left anterior cerebral artery: No occlusion or significant stenosis. No aneurysm. POSTERIOR CIRCULATION: Right vertebral artery: No occlusion or significant stenosis. No aneurysm. Left vertebral artery: No occlusion or significant stenosis. No aneurysm. Basilar artery: No occlusion or significant stenosis. No aneurysm. Right posterior cerebral artery: No occlusion or significant stenosis. No aneurysm. Left posterior cerebral artery: No occlusion or significant stenosis. No aneurysm. HEAD: Brain: Stable right posterior frontal and parietal infarct. Cerebral ventricles: Normal. No ventriculomegaly. Bones: Unremarkable. No acute fracture. Paranasal sinuses: Visualized sinuses are normal. No fluid levels. Mastoid air cells: Visualized mastoids are normal. No mastoid effusion. Soft tissues: Unremarkable. IMPRESSION: 1. Stable right posterior frontal and parietal infarct. 2. Calcified plaque with severe stenosis cavernous right ICA. 3. Calcified plaque with moderate stenosis cavernous left ICA. 4. Moderate to severe stenosis posterior M3 branch right MCA. ASSESSMENT: ASPECTS ([place] Stroke Program Early CT Score) is 8. PROCEDURE INFORMATION: Exam: CTA Neck Without And With Contrast Exam date and time: 06/12/2024 8:34 PM Age: 73 years old Clinical indication: Condition or disease; Other: Occipital stroke TECHNIQUE: Imaging protocol: Computed tomographic angiography of the neck without and with contrast. Exam focused on the cervical segments of the vasculature. 3D rendering (Not supervised by radiologist): MIP and/or 3D reconstructed images were created by the technologist. COMPARISON: MR ANGIO NECK WO 03/02/2024 1:19 PM FINDINGS: Right common carotid artery: No stenosis. No dissection or occlusion. Right internal carotid artery: No stenosis of the extracranial segment. No dissection or occlusion. Right external carotid artery: No occlusion or stenosis of the origin. Left common carotid artery: No stenosis. No dissection or occlusion. Left internal carotid artery: No stenosis of the extracranial segment. No dissection or occlusion. Left external carotid artery: No occlusion or stenosis of the origin. Right vertebral artery: Hypoplastic right vertebral artery, with multifocal severe stenosis throughout. Left vertebral artery: Left vertebral artery dominant. No stenosis or occlusion. Soft tissues: Normal. No significant soft tissue swelling. Bones/joints: Degenerative spondylitic changes throughout the cervical spine. Mild central canal stenosis C3-C4, C6-C7 with moderate to severe central canal stenosis C4-C5 and C5-C6. IMPRESSION: Hypoplastic right vertebral artery, with multifocal severe stenosis throughout. REFERENCES: NASCET CRITERIA. The degree of stenosis in the cervical segment of the internal carotid artery is based on NASCET criteria. Normal is no stenosis. Mild is less than 50% stenosis. Moderate is 50-69% stenosis. Severe is 70% to 99% stenosis. Total occlusion is no detectable patent lumen. Dictated and Authenticated by: Abelardo Nagel MD. Ordering:DENA Valera MD
--- NOTE | 2024-06-12 23:10 | NUR.NOTE ---
Nursing Note: no change in ms, pt remains stable, except BP elevated. the pt also was confused about the monitor and IV equipment and removed them x2, new IV placed and wrapped in coban
[2024-06-13] VITALS (113 sets, daily range): BP systolic 100–198; BP diastolic 40–91; PULSE 45–58; RESP 11–24; TEMP 36.4–37.4; O2SAT 95–100
--- NOTE | 2024-06-13 02:01 | ED.PROG_ITS ---
Date of service: 06/13/24 Time of Service: 02:01 Medical Decision Making Patient was signed out to me by my colleague Dr. Sánchez Alarcon pending contact from [facility] vascular surgery. Patient had been accepted for admission by the hospitalist Dr. Benítez, however we were awaiting vascular surgery's recommendations for potential for interventional management. I discussed the case with Dr. Goran Quintanilla vascular surgery, and she does not recommend any surgical intervention at this time. They recommend continued medical management. Patient will be admitted to the [facility] inpatient hospitalist team for continued medical management. I have extensively reviewed the treatment plan with the patient. I have addressed all patient concerns at this time. I have also discussed the plan with the admitting physician and they agree with the current assessment and plan and have agreed to assume responsibility for the patient. All parties demonstrate verbal understanding and agreement with our assessment and plan at this time. The documentation in this chart was dictated using [employer] dictation software. Please excuse any dictation errors. Quality:SDOH Health Related Social Needs: No Data to Display Sign Out Sign Out Data: Sign Out Comment: Right occipital parietal stroke (3 days old), severe ICA and vertebral art stenosis, pending vascular consult, if no intervention admit to [facility] for medical management; already reviewed with tele neuro Last updated by Soto Hope MD at 06/13/24 00:23 Discharge Plan Disposition Patient Disposition: Admit to [facility] Condition: Stable Discharge Details Chief Complaint: AMS/LOC Clinical Impression: Stroke Primary Care Provider: Maximo Lainez ED Provider: Ceferino Dang Home Meds and New Rx's Prescriptions: No Action chlorhexidine gluconate 0.12 % mouthwash 15 ml buccal BID Qty: 1893 0RF Rx Instructions: swish and spit; do not swallow sertraline 25 mg tablet 25 mg PO DAILY Patient Comments: TAKE ONE TABLET BY MOUTH EVERY DAY aspirin 81 mg tablet,delayed release (DR/EC) 81 mg PO ONCE Patient Comments: TAKE 1 TABLET BY MOUTH EVERY DAY albuterol sulfate 90 mcg/actuation HFA aerosol inhaler 2 inh INHALATION Q4H Patient Comments: INHALE 2 PUFFS BY MOUTH EVERY 4 HOURS NEEDED metoprolol tartrate 25 mg tablet 25 mg PO DAILY Patient Comments: TAKE ONE TABLET BY MOUTH TWICE A DAY atorvastatin 20 mg tablet 20 mg PO ONCE Patient Comments: TAKE ONE TABLET BY MOUTH EVERY EVENING TO LOWER CHOLESTEROL
--- NOTE | 2024-06-13 02:48 | W.PM.HP.N ---
Date of service: 06/13/24 Time of Service: 02:48 Assessment and Plan Assessment and plan (1) CVA (cerebral vascular accident): Start date: 06/13/24 Status: Chronic Assessment and plan: This is a 73-year-old lady who presented with a 3-day history of neurological symptoms over her left visual field and some problems with expression and intentional gaze. She was loaded with aspirin Plavix by recommendation of teleneurology from [facility] and Plavix will be continued for 3 weeks with aspirin continued indefinitely. No anticoagulation or thrombolytic therapy was recommended and with very CTA revealing stenosis, neurosurgery was consulted and did not recommend any further interventions but continued medical care. She will be admitted for observation and repeat CT of the head in the morning because of question of hemorrhage as well as MRI of the brain when available, PT and OT evaluation with permissive hypertension and more aggressive treatment of hyperlipidemia. Cardiac monitoring will be ongoing. She is a full code. Qualifiers: CVA mechanism: occlusion Precerebral and cerebral artery: middle cerebral artery Laterality of affected vessel: right Qualified Code(s): I63.511 - Cerebral infarction due to unspecified occlusion or stenosis of right middle cerebral artery (2) Dementia: Status: Chronic Assessment and plan: This appears to be vascular dementia with patient having previous history of CVA though there was only bilateral periventricular white matter disease on previous MRI 01/19/2024. Qualifiers: Dementia type: vascular dementia Dementia severity: moderate Dementia behavioral or psychological symptom: without behavioral, psychotic, or mood disturbance or anxiety Qualified Code(s): F01.B0 - Vascular dementia, moderate, without behavioral disturbance, psychotic disturbance, mood disturbance, and anxiety (3) HTN (hypertension): Status: Chronic Assessment and plan: Permissive hypertension with her acute stroke. Continue metoprolol low-dose. Qualifiers: Hypertension type: primary hypertension Qualified Code(s): I10 - Essential (primary) hypertension (4) Tobacco abuse: Status: Chronic Assessment and plan: Patient desires nicotine patch while hospitalized and will be given low-dose as 7 mg/h. She is concerned about withdrawal. (5) Chronic hyperglycemia: Status: Chronic Assessment and plan: Patient to have glucometer before meals and at bedtime with incidence of coverage if needed. She is not currently on treatment for this problem. She had no overt diagnosis of diabetes. Hemoglobin A1c will be checked. (6) Hyperlipidemia: Status: Chronic Assessment and plan: Increase atorvastatin to 80 mg daily. Qualifiers: Hyperlipidemia type: mixed hyperlipidemia Qualified Code(s): E78.2 - Mixed hyperlipidemia (7) CKD (chronic kidney disease) stage 3, GFR 30-59 ml/min: Status: Chronic Assessment and plan: Monitor lab while hospitalized. There is no associated anemia. Qualifiers: Chronic kidney disease stage 3 subtype: stage 3b (GFR 30-44) Qualified Code(s): N18.32 - Chronic kidney disease, stage 3b History of Present Illness History of Present Illness Chief Complaint: 3 days of word searching and not interacting normally and her apartment. Narrative: This is a 73-year-old female patient who resides in an apartment and that she can explain where her friends able she interacts with know that she is not acting like yourself being less interactive and less verbal with problems expressing herself for 3 days prior to presentation. Patient does wander in conversation and appeared to be searching for words during conversation. She also complained of visual field changes over her left visual field though she is vague about this description as well. She has difficulty concentrating. Did not have any headache and has no other focal motor deficits. CT of the head was performed because of the symptoms and she was found to have a subacute right occipital parietal stroke with some possible petechial hemorrhage. [facility] teleneurology with Dr. Jefferson was undertaken with patient assessed as having evidence of left hemianopsia, agnosia and occulomotor apraxia and with 3-day history since onset, he recommended loading dose of aspirin and Plavix with continuation of Plavix for 3 weeks and then aspirin alone. They also recommended follow-up CT in the morning possible advancing hemorrhage with a stroke and MRI when available. She will have echocardiogram with bubble study as well. CTA of the head and neck was performed for completion and she did have significant stenosis over her right cavernous internal carotid artery and right vertebral artery. Vascular surgery was consulted with Dr. Goran Quintanilla at [facility] recommending continued medical management with no surgical intervention. Patient will be admitted for observation and permissive hypertension though she did have increased blood pressure upon admission requiring some monitoring and management and continue cardiac monitoring as well as PT and OT evaluation. She is a full code with no previous CODE STATUS or COLST available for review and patient not able to make this decision change at this time. Review of Systems Narrative: 13 point review of systems otherwise unrevealing or stable. Patient is vague historian with her acute difficulty expressing herself. PFSH All Active Problems (Updated 06/13/24 @ 03:19 by Abelardo Benítez) Hyperlipidemia (Chronic) Chronic hyperglycemia (Chronic) CKD (chronic kidney disease) stage 3, GFR 30-59 ml/min (Chronic) Tobacco abuse (Chronic) HTN (hypertension) (Chronic) Dementia (Chronic) CVA (cerebral vascular accident) (Chronic) Social History Smoking/Tobacco Use Status: Current every day Tobacco Type: cigarettes Smoking risk assessment performed?: Yes Alcohol Intake: current Drug use: Never Substance use type: does not use Housing: apartment Do you feel safe at home: Yes Do you feel safe in your relationship?: Yes Meds Allergies and Home Medications Allergies Allergy/AdvReac Type Severity Reaction Status Date / Time No Known Allergies Allergy Unverified 06/12/24 17:08 Home Medications ?Medication ?Instructions ?Recorded ?Confirmed ?Type chlorhexidine gluconate 0.12 % 15 ml buccal BID dental infection 12/05/23 06/12/24 Rx mouthwash #1,893 mL albuterol sulfate 90 mcg/actuation 2 inh inhalation Q4H 06/12/24 06/12/24 History aerosol inhaler aspirin 81 mg tablet,delayed 81 mg PO ONCE 06/12/24 06/12/24 History release atorvastatin 20 mg tablet 20 mg PO ONCE 06/12/24 06/12/24 History metoprolol tartrate 25 mg tablet 25 mg PO DAILY 06/12/24 06/12/24 History sertraline 25 mg tablet 25 mg PO DAILY 06/12/24 06/12/24 History Exam Narrative Exam Narrative: General: Patient is appropriate for age, alert and oriented x 3 and in no acute distress. She is very talkative and wanders in conversation with some difficulty sticking to task in conversation. She does regularize her inability to express herself. HEENT: Normocephalic, eyes with pupils equal and reactive to light symmetrically, extraocular movement intact and sclera anicteric. Patient does have an gaze at times. Oropharynx with moist mucosa and fair dentition. Neck: Supple without JVD. No palpable carotid thrills. Back: Stooped posture without CVA tenderness. Lungs: Bronchovesicular rest of diffuse with no focalizing rales or rhonchi. No expiratory wheeze. Breast: Exam deferred. Heart: Regular rate and rhythm with no murmurs gallops appreciated. Abdomen: Mildly obese contour, soft and nontender to palpation with no palpable hepatosplenomegaly. Bowel sounds positive all quadrants. Genitalia/rectal: Exam deferred. Extremities: No clubbing, cyanosis or pitting edema. Fair cap refill. Skin: Normal color, warm and dry. Exam changes over sun exposed areas with rough texture. Neuro: Cranial nerves II through XII appear to be grossly intact except for loss of some of her left visual field which would be more of a central visual acuity defect and then from the optic nerve. No tremor. No focal motor deficits. (See teleneurology consultation for full neurological exam). Psych: Normal affect and mood. Slightly euphoric at times. No abnormal thought processes. Remote and recent memory appear to be grossly intact though she has difficulty expressing herself. Results Imaging Imaging Studies: Exam: CTA Head Without And With Contrast, Arteriography Exam date and time: 06/12/2024 8:34 PM Age: 73 years old Clinical indication: Condition or disease; Other: Occipital stroke TECHNIQUE: Imaging protocol: Computed tomographic angiography of the head without and with contrast. Exam focused on the arteries. 3D rendering (Not supervised by radiologist): MIP and/or 3D reconstructed images were created by the technologist. Other technique: STROKE PROTOCOL was implemented. COMPARISON: MR ANGIO BRAIN WO 03/02/2024 1:09 PM FINDINGS: ANTERIOR CIRCULATION: Right internal carotid artery: Calcified plaque with severe stenosis cavernous right ICA. Right middle cerebral artery: Moderate to severe stenosis posterior M3 branch right MCA. No significant stenosis remainder of the right MCA. Right anterior cerebral artery: No occlusion or significant stenosis. No aneurysm. Left internal carotid artery: Calcified plaque with moderate stenosis cavernous left ICA. Left middle cerebral artery: No occlusion or significant stenosis. No aneurysm. Left anterior cerebral artery: No occlusion or significant stenosis. No aneurysm. POSTERIOR CIRCULATION: Right vertebral artery: No occlusion or significant stenosis. No aneurysm. Left vertebral artery: No occlusion or significant stenosis. No aneurysm. Basilar artery: No occlusion or significant stenosis. No aneurysm. Right posterior cerebral artery: No occlusion or significant stenosis. No aneurysm. Left posterior cerebral artery: No occlusion or significant stenosis. No aneurysm. HEAD: Brain: Stable right posterior frontal and parietal infarct. Cerebral ventricles: Normal. No ventriculomegaly. Bones: Unremarkable. No acute fracture. Paranasal sinuses: Visualized sinuses are normal. No fluid levels. Mastoid air cells: Visualized mastoids are normal. No mastoid effusion. Soft tissues: Unremarkable. IMPRESSION: 1. Stable right posterior frontal and parietal infarct. 2. Calcified plaque with severe stenosis cavernous right ICA. 3. Calcified plaque with moderate stenosis cavernous left ICA. 4. Moderate to severe stenosis posterior M3 branch right MCA. ASSESSMENT: ASPECTS (Jennifer Stroke Program Early CT Score) is 8. PROCEDURE INFORMATION: Exam: CTA Neck Without And With Contrast Exam date and time: 06/12/2024 8:34 PM Age: 73 years old Clinical indication: Condition or disease; Other: Occipital stroke TECHNIQUE: Imaging protocol: Computed tomographic angiography of the neck without and with contrast. Exam focused on the cervical segments of the vasculature. 3D rendering (Not supervised by radiologist): MIP and/or 3D reconstructed images were created by the technologist. COMPARISON: MR ANGIO NECK WO 03/02/2024 1:19 PM FINDINGS: Right common carotid artery: No stenosis. No dissection or occlusion. Right internal carotid artery: No stenosis of the extracranial segment. No dissection or occlusion. Right external carotid artery: No occlusion or stenosis of the origin. Left common carotid artery: No stenosis. No dissection or occlusion. Left internal carotid artery: No stenosis of the extracranial segment. No dissection or occlusion. Left external carotid artery: No occlusion or stenosis of the origin. Right vertebral artery: Hypoplastic right vertebral artery, with multifocal severe stenosis throughout. Left vertebral artery: Left vertebral artery dominant. No stenosis or occlusion. Soft tissues: Normal. No significant soft tissue swelling. Bones/joints: Degenerative spondylitic changes throughout the cervical spine. Mild central canal stenosis C3-C4, C6-C7 with moderate to severe central canal stenosis C4-C5 and C5-C6. IMPRESSION: Hypoplastic right vertebral artery, with multifocal severe stenosis throughout. EXAM: CT HEAD WO Date of Exam: 06/12/24 CLINICAL HISTORY: ams. TECHNIQUE: Imaging Protocol: Axial computed tomography images with coronal and sagittal reformatted images were created and reviewed COMPARISON: Prior brain MRI of 01/19/2024 was reviewed. FINDINGS: There are no skull fractures. There is no fluid in the visualized paranasal sinuses. There is a large area of acute infarction in the right occipital parietal region, not previously evident on MRI scan of 01/19/2024 there is ribbon like sulcal hyperdensity in this region which may represent some petechial hemorrhage. The above findings are superimposed upon abundant bilateral periventricular hypodensity consistent with chronic small vessel disease, as evident on the prior MRI study. There is also a small nonhemorrhagic lacunar infarct in the right basal ganglia again noted. IMPRESSION: Large area of acute infarct in the right occipital parietal region. Within this area is ribbon like hyperdensity consistent with probable petechial hemorrhage at the level the sulci. The above findings are superimposed upon abundant bilateral periventricular white matter disease, as was evident on prior MRI study of 01/19/2024. Labs 06/12/24 17:40 06/12/24 17:40 Labs: Laboratory Results - last 24 hr 06/12/24 06/12/24 06/12/24 17:40 17:50 19:53 WBC 7.41 RBC 3.82 L Hgb 11.9 Hct 34.8 L MCV 91 MCH 31.2 MCHC 34.2 RDW 12.2 Plt Count 211 MPV 10.8 Immature Gran % 0.3 Neutrophils % 58.3 Lymphocytes % 33.3 Monocytes % 5.0 Eosinophils % 2.3 Basophils % 0.8 Nucleated RBC % 0.0 Absolute Neutrophils 4.32 Absolute Lymphocytes 2.47 Absolute Monocytes 0.37 Absolute Eosinophils 0.17 Absolute Basophils 0.06 PT 9.9 INR 1.0 APTT 22.1 L VBG pH 7.30 L VBG pCO2 45 VBG pO2 31 VBG HCO3 22 L VBG Total CO2 21 L VBG O2 Saturation 57 VBG Base Excess -4 L Sodium 144 Potassium 3.6 Chloride 108 H Carbon Dioxide 23.8 Anion Gap 12.2 H BUN 37 H Creatinine 1.7 H Est GFR (CKD-EPI 2020) 31.47 Glucose 162 H Calcium 9.5 Magnesium 2.0 Total Bilirubin 0.52 AST 15 ALT 15 Alkaline Phosphatase 101 Ammonia < 10 L Creatine Kinase 81 Total Protein 7.4 Albumin 3.9 Lipase 71 TSH 1.49 Urine Color Yellow Urine Clarity Clear Urine pH 5.5 Ur Specific [place] 1.025 Urine Protein 30 H Urine Ketones Negative Urine Blood Negative Urine Nitrite Negative Urine Bilirubin Negative Urine Urobilinogen 0.2 Ur Leukocyte Esterase Negative Urine RBC Negative Urine WBC Negative Ur Epithelial Cells Rare Urine Crystals Negative Urine Bacteria Rare Urine Casts Negative Urine Mucus Negative Ur Culture Indicated? No Urine Glucose Negative Urine Opiates Screen Negative Urine Methadone Screen Negative Acetaminophen < 2 Ur Barbiturates Screen Negative Ur Tricyclics Screen Negative Ur Amphetamines Screen Negative U Benzodiazepines Scrn Negative Urine Cocaine Screen Negative Ur THC Screen Negative Ethyl Alcohol < 3.0 COVID-19 Source Nasopharynx SARS-CoV-2 (PCR) Negative Influenza Type A (PCR) Negative Influenza Type B (PCR) Negative RSV (PCR) Negative Last Vital Signs Temp 35.8 C L 06/12/24 17:02 Pulse 50 L 06/13/24 01:11 Resp 17 06/13/24 01:13 BP 164/84 H 06/13/24 01:11 Pulse Ox 99 06/13/24 01:13 Time Spent Time spent with Patient: >75 minutes Time was spent: preparing to see the patient(eg.review tests), obtaining and/or reviewing separately otained hiistory, ordering medications,tests, procedures, referring, communicating with other health manager respiratory care, indepentently interpreting results, counseling the patient and care coordination
--- NOTE | 2024-06-13 04:40 | W.PC.ACHO ---
Registration Status: Primary Language: Preferred Language: ED Information & Data Chief Complaint AMS/LOC 06/12/24 17:54 Triage Note 3 days pt acting off 06/12/24 17:02 usually pt has daily routine , which she is not participating in, they are having to ask her to do the things she normally does. Has hx CVA and dementia, but last 3 days has been more altered. Trouble expressing self, trouble following commands, and is not responding appropriately. 1 month ago experienced something similar from UTI Most Recent Vital Signs Temperature 35.8 C L 06/12/24 17:02 Pulse 51 L 06/13/24 04:07 Respiratory Rate 16 06/13/24 04:07 Respiratory Effort Normal, Non-Labored 06/12/24 19:40 Respiratory Depth Normal 06/12/24 19:40 Respiratory Pattern Normal 06/12/24 19:40 Blood Pressure 185/56 H 06/13/24 04:07 Pulse Oximetry 99 06/13/24 04:07 Oxygen Delivery Method Room Air 06/13/24 04:07 Oxygen Flow Rate 0 06/13/24 04:07 Pain Level 0 06/12/24 17:02 Allergies No Known Allergies Allergy (Unverified 06/12/24 17:08) Active Medications Generic Name Dose Route Start Last Admin Trade Name Jaceq PRN Reason Stop Dose Admin Iohexol 100 ml 06/12/24 21:30 06/12/24 21:28 Omnipaque 350 Mg/Ml 100 Ml Btl IJ 07/12/24 23:59 70 ml DIRECTED GEORGE Administration Sodium Chloride 50 ml 06/12/24 21:30 06/12/24 21:29 Normal Saline - Diluent 50 Ml Vial IJ 50 ml .FOR DI USE GEORGE Administration IV IV Catheter Type [Left Wrist] Peripheral IV IV Catheter Type [Right Wrist] Peripheral IV IV Catheter Type [Right Peripheral IV Antecubital] IV Catheter Gauge [Left Wrist] 18 IV Catheter Gauge [Right Wrist 20 ] IV Catheter Gauge [Right 20 Antecubital] Diagnostics 06/12/24 06/12/24 06/12/24 Range/Units 19:53 17:50 17:40 WBC 7.41 (4.4-10.8) 10^3/uL RBC 3.82 L (3.93-5.22) 10^6/uL Hgb 11.9 (11.2-15.7) g/dL Hct 34.8 L (36.0-46.0) % MCV 91 (80-95) fL MCH 31.2 (27.0-33.0) pg MCHC 34.2 (32.0-36.0) % RDW 12.2 (11.7-14.6) % Plt Count 211 (130-400) 10^3/uL MPV 10.8 (8.0-11.0) fL Immature Gran % 0.3 % Neutrophils % 58.3 % Lymphocytes % 33.3 % Monocytes % 5.0 % Eosinophils % 2.3 % Basophils % 0.8 % Nucleated RBC % 0.0 (0.0-0.3) % Absolute Neutrophils 4.32 (1.2-6.7) 10^3/uL Absolute Lymphocytes 2.47 (1.2-3.4) 10^3/uL Absolute Monocytes 0.37 (0.1-0.8) 10^3/uL Absolute Eosinophils 0.17 (0.0-0.7) 10^3/uL Absolute Basophils 0.06 (0.0-0.2) 10^3/uL PT 9.9 (9.1-11.1) sec INR 1.0 (0.9-1.1) APTT 22.1 L (23.6-32.8) sec VBG pH 7.30 L (7.31-7.41) VBG pCO2 45 (41-51) mmHg VBG pO2 31 mmHg VBG HCO3 22 L (23-28) mmol/L VBG Total CO2 21 L (24-29) mmol/L VBG O2 Saturation 57 % VBG Base Excess -4 L (-2-3) mmol/L Sodium 144 (136-145) mmol/L Potassium 3.6 (3.5-5.1) mmol/L Chloride 108 H (98-107) mmol/L Carbon Dioxide 23.8 (21.0-32.0) mmol/L Anion Gap 12.2 H (3-11) mmol/L BUN 37 H (7-18) mg/dL Creatinine 1.7 H (0.55-1.02) mg/dL Est GFR (CKD-EPI 2020) 31.47 (mL/min/1.73m2) Glucose 162 H (74-106) mg/dL Calcium 9.5 (8.5-10.1) mg/dL Magnesium 2.0 (1.8-2.4) mg/dL Total Bilirubin 0.52 (0.2-1.0) mg/dL AST 15 (15-37) U/L ALT 15 (14-59) U/L Alkaline Phosphatase 101 (46-116) U/L Ammonia < 10 L (11-32) umol/L Creatine Kinase 81 (26-192) U/L Total Protein 7.4 (6.4-8.2) g/dL Albumin 3.9 (3.4-5.0) g/dL Lipase 71 (16-77) U/L TSH 1.49 (0.36-3.74) uIU/mL Urine Color Yellow (Yellow) Urine Clarity Clear (Clear) Urine pH 5.5 (5-8) Ur Specific [place] 1.025 (1.005-1.025) Urine Protein 30 H (Neg-Trace) mg/dL Urine Ketones Negative (Negative) mg/dL Urine Blood Negative (Negative) Urine Nitrite Negative (Negative) Urine Bilirubin Negative (Negative) Urine Urobilinogen 0.2 (Up to 0.2) mg/dL Ur Leukocyte Esterase Negative (Negative) Urine RBC Negative (0-2) HPF Urine WBC Negative (0-5) HPF Ur Epithelial Cells Rare (Negative) HPF Urine Crystals Negative (Negative) HPF Urine Bacteria Rare (Negative) HPF Urine Casts Negative (Negative) LPF Urine Mucus Negative (Negative) Ur Culture Indicated? No Urine Glucose Negative (Negative) mg/dL Urine Opiates Screen Negative (Negative) Urine Methadone Screen Negative (Negative) Acetaminophen < 2 (10-30) ug/mL Ur Barbiturates Screen Negative (Negative) Ur Tricyclics Screen Negative (Negative) Ur Amphetamines Screen Negative (Negative) U Benzodiazepines Scrn Negative (Negative) Urine Cocaine Screen Negative (Negative) Ur THC Screen Negative (Negative) Ethyl Alcohol < 3.0 (<10) mg/dL COVID-19 Source Nasopharynx SARS-CoV-2 (PCR) Negative (Negative) Influenza Type A (PCR) Negative (Negative) Influenza Type B (PCR) Negative (Negative) RSV (PCR) Negative (Negative) [id number] Documentation Fingerstick Glucose Start: 06/12/24 17:19 Freq: .Stat Status: Active Protocol: Activity Type Activity Date Activity User E-sign Co-sign Detail Recorded Client Recorded Date Recorded By Document 06/12/24 17:29 GALILEO [id number] 06/12/24 17:29 GALILEO Intake and Output - 24 Hour Total 06/12/24 16:55 thru 06/12/24 21:11 Intake Total 500 Balance 500 Weight 46.266 kg Intake: IV 500 Falls Risk Assessment History of Falls Previous History 06/12/24 20:46 Contributing Factors Impairments 06/12/24 20:46 Ambulatory Aids Independent 06/12/24 20:46 Tubes/Lines W/no contributing factors 06/12/24 20:46 Gait Evaluation W/any additional score 06/12/24 20:46 Cognition Cognitive impairment 06/12/24 20:46 Fall Total Score 63 06/12/24 20:46 Level of Risk High Risk 06/12/24 20:46 Problems (Last Updated 06/13/24 @ 03:06 by Abelardo Benítez) Hyperlipidemia (Chronic) Chronic hyperglycemia (Chronic) CKD (chronic kidney disease) stage 3, GFR 30-59 ml/min (Chronic) Tobacco abuse (Chronic) HTN (hypertension) (Chronic) Dementia (Chronic) CVA (cerebral vascular accident) (Chronic) Notes 06/12/24 23:10 Nursing Notes by Henrique Ayala Nursing Note: no change in ms, pt remains stable, except BP elevated. the pt also was confused about the monitor and IV equipment and removed them x2, new IV placed and wrapped in coban Initialized on 06/12/24 23:10 - END OF NOTE 06/12/24 20:21 Nursing Notes by Henrique Ayala Nursing Note: Late entry Pt sitting up in bed awaiting tele neuro, pt is able to state who the visitors, the pt has visual deficits to left eye. the pt is able to move all extremities with demonstration, difficulty understanding commands such as lifting her arms and legs, pt able to state objects and names, no slurred speech. no facial droop. pt able to stand without support, but is unsteady when walking. no unequal extremity weakness. ambulated to the BR with premises technician Initialized on 06/12/24 20:21 - END OF NOTE v v v v v v v v v Sending and/or Receiving Nurses: Please use comment section below to note any information pertinent to the patient hand-off not included above. Information / Comments: Lives at home with family, who were concerned with patient changes over past 3 days. Patient confused and generalized weakness. Family concerned she seemed off. CT confirmed stroke Pt left eye lacking peripheral vision Pt showing some cognitive deficits and confusion Expressive and receptive ephasia. Patient is pulling out IV's currently has 18 in left forearm. Patient is unsteady walking independently. pt had a sandwich and drink in the ED Family is planning to visit during the day. BP has been running high and heart rate in 50-60's, currently 185/56 and is best so far. Report received from: Henrique Ayala RN
[2024-06-13] MEDS: Metoprolol 12.5 MG TAB PO ×3 (06:02→23:10)
[2024-06-13] MEDS: Clopidogrel 300 MG TAB PO (06:17)
[2024-06-13] MEDS: Aspirin 325 MG TAB PO (06:17)
[2024-06-13 06:42] LABS: HCT 31.5 % (36.0-46.0); HGB 10.8 g/dL (11.2-15.7); MCHC 34.3 % (32.0-36.0); MCV 91 fL (80-95); MPV 10.5 fL (8.0-11.0); Platelet Count 200 10^3/uL (130-400); RBC 3.48 10^6/uL (3.93-5.22); RDW 12.1 % (11.7-14.6); RDW-SD 39.6 fL; WBC 8.48 10^3/uL (4.4-10.8)
[2024-06-13 06:59] LABS: ALT 12 U/L (14-59); AST 14 U/L (15-37); Albumin 3.5 g/dL (3.4-5.0); Alkaline Phosphatase 91 U/L (46-116); Anion Gap 9.4 mmol/L (3-11); BUN 34 mg/dL (7-18); CO2 22.6 mmol/L (21.0-32.0); CREATININE 1.6 mg/dL (0.55-1.02); Chloride 106 mmol/L (98-107); Estimated GFR 33.84 (mL/min/1.73m2); Glucose 104 mg/dL (74-106); Magnesium 1.8 mg/dL (1.8-2.4); Potassium 3.4 mmol/L (3.5-5.1); Sodium 138 mmol/L (136-145); Total Protein 6.7 g/dL (6.4-8.2)
[2024-06-13] MEDS: Clopidogrel 75 MG TAB PO (08:46)
[2024-06-13] MEDS: Sertraline 25 MG TAB PO (08:46)
[2024-06-13] MEDS: Normal Saline Flush 10 ML SYR IVP (08:46)
--- NOTE | 2024-06-13 08:57 | INITIAL_ITS ---
Date of service: 06/13/24 Time of Service: 08:57 Care Management Initial Assmt Initial Assessment Reason for Hospitalization: CVA Functional Status/Living Situation Patient Presentation: Jennifer was sitting up in her chair when CM met with her. She was pleasant and engaged in conversation, although she appeared confused and disoriented. She could not answer questions about where she is now, where she lives, and who she lives with. She mentioned her friend, Donna, who is on her HIPAA. CM called Donna, who reported that she is her niece, as well as her primary loom fixer, and that Jennifer lives with her. Donna stated that Jennifer has dementia at baseline, but she is generally more oriented than she is today. Per report, Jennifer will be evaluated by PT, OT, ST, and will have an MRI and echo tomorrow. CM reviewed the recommendations from PT, stating that she will likely be discharged home with new services once she is medically cleared, which she is agreeable to. CM will update Donna tomorrow, at her request. CM will continue to follow. Town of Residence: [facility] Resides with: Other (Niece, Donna) Natural Supports: Niece, Donna Thompson reported that Jennifer had a daughter who , and she has two sons who are estranged. Employment Status: Retired Instrumental Activities of Daily Living (ADLs): Independent Medications Medication Management: No Issues/Barriers identified Advance Directives Advance Directives: Do you have an Advance Directive: N 07/16/23 14:30 AD On File at [facility]: N 07/16/23 14:30 Date Asked 06/13/24 06/13/24 03:47 AD Date Reviewed COLST On File at [facility] COLST Date Scanned Code Status Resuscitation Status Full Code Insurance Coverage/Financial Issues Insurance: [facility]. [facility]. Care Team Visit Care Team Role Provider Type Maximo Lainez Primary Care Provider NON-[facility] STAFF PHYSICIAN Kathrin Arshad Other Providers REG OCCUPATIONAL THERAPIS T Viola Whitman, AGRICULTURAL EQUIPMENT MECHANIC Other Providers SPEECH LANGUAGE PATHOLOGIST Lois Myers, AGRICULTURAL EQUIPMENT MECHANIC Other Providers SPEECH LANGUAGE PATHOLOGIST Radha Castle Other Providers SPEECH LANGUAGE PATHOLOGIST Coty Reyes, AGRICULTURAL EQUIPMENT MECHANIC Other Providers SPEECH LANGUAGE PATHOLOGIST Deena Holland, AGRICULTURAL EQUIPMENT MECHANIC Other Providers SPEECH LANGUAGE PATHOLOGIST Ovidio Martinez Other Providers OTHER Ceferino Dang DO Emergency Provider [facility] STAFF PHYSICIAN Abelardo Benítez Admit Provider NON-[facility] STAFF PHYSICIAN Attending Provider Discharge Potential Discharge Needs: Imaging/labs (repeat head CT, MRI), PT Evaluation and PCP F/U Appt Anticipated Barriers to Discharge: None Identified Patient/Family Education Needs: Review discharge instructions, discuss Ask Me Three Transportation: Private vehicle Plan: Anticipate Jennifer will return home once medically cleared. She may benefit from services upon discharge. She will transport home via private vehicle by family. She will follow up with her PCP and discharge plan of care. CM will continue to follow. PFSH All Active Problems (Updated 06/13/24 @ 03:19 by Abelardo Benítez) Hyperlipidemia (Chronic) Chronic hyperglycemia (Chronic) CKD (chronic kidney disease) stage 3, GFR 30-59 ml/min (Chronic) Tobacco abuse (Chronic) HTN (hypertension) (Chronic) Dementia (Chronic) CVA (cerebral vascular accident) (Chronic) Social History Smoking/Tobacco Use Status: Current every day Tobacco Type: cigarettes Smoking risk assessment performed?: Yes Alcohol Intake: current Drug use: Never Substance use type: does not use Housing: apartment Do you feel safe at home: Yes Do you feel safe in your relationship?: Yes SDOH(Care Management) Screening Will the Patient Participate in the Screening?: Unable to obtain
--- NOTE | 2024-06-13 09:08 | DI.CT_ITS ---
Exam(s) CT HEAD WO EXAM: CT HEAD WO CLINICAL HISTORY: Follow-up possible hemorrhage right occipital CVA. TECHNIQUE: Imaging Protocol: Axial computed tomography images with coronal and sagittal reformatted images were created and reviewed COMPARISON: CT CT HEAD WO from 06/12/[address] BRAIN NECK CTA from 06/12/2024 FINDINGS: There are no skull fractures. Mucosal thickening and mild fluid is noted in the left sphenoid sinus, unchanged. The right occipital parietal infarct is again noted with again noted involved sulcal hype rdensity-probable petechial hemorrhages in the area of infarct. Again noted is some effacement of th e regional gyri and sulci prior there is no significant mass effect upon the adjacent lateral ventric le. No shift. No evidence of intraventricular hemorrhage. Right basal ganglia nonhemorrhagic lacun ar infarct is again noted. The above findings are again noted be superimposed upon abundant bilateral periventricular hypodensit y consistent with chronic small vessel disease. IMPRESSION: Redemonstration of right parietal lobe infarct which contains petechial hemorrhage. No shift of midl ine structures. No intraventricular blood. Some mucosal thickening left sphenoid sinus again noted with some bubbly debris therein, unchanged fr om yesterday. Other visualized paranasal sinuses are clear. RADIATION DOSE DELIVERED: 935.47mGy.cm Total DLP DATA REPOSITORY: All CT scans at this facility are submitted to the National Radiology Data Registry (NRDR) Dose Index Registry (DIR) with the [employer] (ACR). RADIATION OPTIMIZATION: All CT scans at this facility use at least one of these dose optimization te chniques: automated exposure control; mA and/or kV adjustment per patient size (includes targeted exa ms where dose is matched to clinical indication); or iterative reconstruction.
--- NOTE | 2024-06-13 10:28 | DI.VRAD_ITS ---
PROCEDURE INFORMATION: Exam: CT Head Without Contrast Exam date and time: 06/13/2024 9:06 AM Age: 73 years old Clinical indication: Other: Follow-up possible hemorrhage right occipital CVA TECHNIQUE: Imaging protocol: Computed tomography of the head without contrast. COMPARISON: CT BRAIN NECK CTA 06/12/2024 8:34 PM FINDINGS: Brain: Persistent hemorrhagic infarct of the right parietal lobe. Probable scattered areas of enhancement. Scattered patchy white matter hypodensities. Remote peripheral encephalomalacia of the left parietal lobe. No midline shift or extra-axial collection. Cerebral ventricles: No ventriculomegaly. Paranasal sinuses: Moderate mucosal thickening of the left sphenoid sinus with bubbly debris. Mastoid air cells: Visualized mastoid air cells are well aerated. Bones: Unremarkable. No acute fracture. Soft tissues: Unremarkable. Vasculature: There is likely residual contrast in the visualized vascular system. Other findings: Intracranial atherosclerotic calcifications. IMPRESSION: 1. Persistent hemorrhagic infarct of the right parietal lobe. Probable scattered areas of enhancement. 2. Moderate mucosal thickening of the left sphenoid sinus with bubbly debris. Dictated and Authenticated by: Henna Cordero MD. Ordering:ELVIN Zhou MD
--- NOTE | 2024-06-13 12:00 | IN_ITS ---
PT Notes Visit Reasons: Subacute right occipital CVA, hypertension Inpatient Physical Therapy Evaluation Date: [06/13/2024] Referring Doctor: [Abelardo Benítez] PT Orders: PT CONSULT: Limited Ability Precautions: standard, fall risk Patient Profile/Admitting Diagnosis: [] Subacute right occipital parietal stroke, AMS. Has PMH of moderate vascular dementia. Jennifer is a 73-year-old female presenting to the ED 06/13/2024 early a.m. with complaint of not feeling herself, difficulty expressing herself and possibly visual deficits of the left field x 3 days. Consult was performed with [facility]. She had a CT scan revealing subacute right occipital parietal stroke with possible petechial hemorrhage. [facility] exam suggest left hemianopsia,agnosia, and ocular motor apraxia. She was treated in the ED with Plavix and aspirin. PMHX: All Active Problems (Updated 06/13/24 @ 03:19 by Abelardo Benítez) Hyperlipidemia (Chronic) Chronic hyperglycemia (Chronic) CKD (chronic kidney disease) stage 3, GFR 30-59 ml/min (Chronic) Tobacco abuse (Chronic) HTN (hypertension) (Chronic) Dementia (Chronic) CVA (cerebral vascular accident) (Chronic) Social History/Home Situation: Uncertain of living situation suspect that she lives alone although today she states that she lives with Donna's mother and the Donna sometimes takes care of her. Current Functional Limitations: Patient denies needing any assistive device for ambulation. She is unable to report whether she has any stairs. She is unable to report if she does her own cooking and home keeping. Equipment Owned/DME: Patient denies having any AD Subjective: Patient states that she had been feeling 'off' for about a month now and that she feels a little unsteady now and feels that she is not quite right. Objective: General Observation: Patient is sitting in chair pleasant and cooperative able to track with eyes with me standing both on the right and on the left and able to carry on full conversation although has word finding problems and unable to answer specific questions. Mental Status: Suspect AMS as patient is unable to state where she is is at and the specifics of where she lives. She did have a visitor earlier today and was unable to recall their name. She speaks of Donna throughout our full conversation. She is alert to her name but not place or time. Pain: She denies any pain Vital Signs: Monitored by nursing staff she is on telemetry she has no shortness of breath with ambulation. ROM: Right Upper Extremity: WFL Left Upper Extremity: WFL Right Lower Extremity: WFL Left Lower Extremity: WFL Strength: Right Upper Extremity: 5/5 throughout including truck driver's offsider Left Upper Extremity: 5/5 throughout including truck driver's offsider Right Lower Extremity: 5/5 throughout Left Lower Extremity: 5/5 throughout Sensation: Patient denies any numbness or tingling has normal sensation to palpation of both LE and UE. Coordination [] patient has some drift of left UE, when placing a cup back down she is unable to place back on the tray, some delay with pronation supination on the left, she has good tracking with her eyes both left and right but with vertical gaze she does get caught staying looking up and has difficulty centering back to midline. Patient has less issues with LE although may be noted more so and unsteadiness with standing. Bed Mobility/Transfers: Sit to stand independent however unsteady when first coming to stand with loss of balance to the right Stand to sit independent however is turned to the right and needs VC to turn square to the chair and reach back with her hands and she reaches back only with the right Bed mobility not assessed however patient has good strength and mobility moving about I would expect this to be quite good. Gait: Patient ambulates 160 feet with CTG due to occasional unsteadiness no need for AD. She has no SOB during ambulation and is able to change speeds without altering gait pattern. She does have decreased left arm swing. Balance: Static Sitting: Normal Dynamic Sitting: normal Static Standing: Normal Dynamic Standing: Fair patient most unsteady first going sit to stand and with change of direction as well as with turning of head or standing on one leg although she does do this relatively well we do give her some minimal support. Special Tests: Mobility Limitations Standardized Measure [facility] AM-PAC 6 clicks Basic Mobility Inpatient Short Form: Raw Score: 22 standardized Score: 53.28 CMS Score: 20.91 Informed Consent/Education: Patient instructed in purpose of PT consult and plan of care. Assessment: Patient is a 73 year old female referred to physical therapy services with the diagnosis of right subacute occipital parietal stroke with significant PMH of moderate vascular dementia . Patient presents with clinical signs and symptoms consistent with above diagnosis patient has word finding problems not orientated to place and time, as demonstrated by the following impairment level findings: Patient demonstrates with vague signs of decreased coordination of left UE, unsteadiness with ambulation and unsteadiness with dynamic standing as outlined above. Impairments are contributing to the following functional limitations: AMPAC score. Patient is assessed as a Low 83352 complexity based on the following: History: As outlined above Examination: As outlined above Presentation: Evolving Decision Making: Low Goals: Goals X1 week 1. Supine-Sit independent 2. Sit-Supine independent 3. Sit-Stand independent without LOB 4. Stand-Sit independent with good mechanics and safe 5. Bed-Chair independent 6. Chair-Bed independent 7. Gait independent without AD 8. Stairs independent without AD 9. Independent with home exercise program independent 10. Balance improve dynamic standing to good or normal Plan of Care/Treatment Plan: 1-2x/day, 7 days/week x 1 week. Plan of care has been reviewed with the PATTERN SETTER providing the service under Physical Therapy direction. Initiate Physical Therapy intervention for strengthening, bed mobility, transfers, gait, stairs, balance training, use of assistive device. DISCHARGE RECOMMENDATIONS: [X] Home with services PT for safety evaluation TREATMENT CODE/TIME: 33885 12:10-12:30 20' Marci Hurtado PT Please sign an return this page within 30 days if you agree with the above POC. Thank you! Physician Signature Date [facility]
[2024-06-13] MEDS: Insulin Aspart 300 UNITS/3 ML PEN SC (13:11)
[2024-06-13] MEDS: Atorvastatin 20 MG TAB 80 MG PO (20:51)
[2024-06-14 00:03] VITALS: BP 152/60; PULSE 55; RESP 16; O2SAT 98
[2024-06-14] MEDS: Losartan 25 MG TAB PO ×2 (00:05→07:54)
[2024-06-14] MEDS: Nicotine 7 MG/24 HR PATCH TD ×2 (03:15→15:54)
[2024-06-14 05:00] VITALS: BP 162/64; PULSE 54; RESP 16; TEMP 36.8; O2SAT 99
[2024-06-14] MEDS: Aspirin E.C. 81 MG TABEC PO (07:54)
[2024-06-14] MEDS: Metoprolol 12.5 MG TAB PO ×2 (07:54→20:48)
[2024-06-14] MEDS: Clopidogrel 75 MG TAB PO (07:54)
[2024-06-14] MEDS: Sertraline 25 MG TAB PO (07:54)
--- NOTE | 2024-06-14 08:00 | DI.MRI_ITS ---
Exam(s) MR BRAIN WO EXAM: MR BRAIN WO CLINICAL HISTORY: Subacute right occipital CVA TECHNIQUE: Multiplanar multisequence MRI of the brain was performed. COMPARISON: MR MR BRAIN WO from 01/19/2024 MR MR ANGIO BRAIN WO from 03/02/[address] BRAIN NECK CTA from 06/12/[address] HEAD WO from 06/12/2024 FINDINGS: The examination is limited due to patient motion artifact. VENTRICLES AND EXTRA AXIAL SPACES: Normal in size and morphology for the patient's age. MIDLINE SHIFT: None. CEREBRAL PARENCHYMA: There is again seen a large area of restricted diffusion involving the right par ietal occipital region consistent with subacute infarct. There is a face mint of the sulci and edema is present. There is a subtle area of hyperintensity on the diffusion-weighted images in the left o ccipital lobe above the atria but no corresponding finding is seen on the ADC images. There are area s of hyperintense signal seen in the white matter on the FLAIR and T2 weighted images most consistent with chronic microvascular ischemic disease. HEMORRHAGE: There are areas of signal loss within the subacute infarct consistent with prior hemorrha ge. BRAINSTEM/CEREBELLUM: Normal. CALVARIUM: Normal. VISUALIZED PARANASAL SINUSES/MASTOIDS:Small amount of fluid seen in the sphenoid sinus. The remainin g visualized paranasal sinuses are clear. PITUITARY GLAND: Unremarkable. OTHER FINDINGS: None. IMPRESSION: 1. Redemonstration of a large right parietal occipital region subacute infarct. 2. Age-related cerebral atrophy and chronic microvascular ischemic disease. 3. The examination is limited due to patient motion artifact. DATA REPOSITORY:
[2024-06-14 08:28] VITALS: BP 151/89; PULSE 61; RESP 18; TEMP 37.1; O2SAT 98
--- NOTE | 2024-06-14 10:42 | PHA.REVIEW2 ---
Pharmacy Admission Review Admission Clinical Review Admission Pharmacy Review: No Known Allergies Allergy (Unverified 06/12/24 17:08) Resuscitation Status Full Code Height 4 ft 11 in Weight 44.1 kg Pharmacy Admission Review Renal Dosing Renal Dosing: BUN 34 mg/dL (7-18) H 06/13/24 06:40 Creatinine 1.6 mg/dL (0.55-1.02) H 06/13/24 06:40 Medications needing adjustments: Reviewed (CrCl 21.25 mL/min) List of meds needing interventions: Current medications are okay Anticoagulation Anticoagulation: Hgb 10.8 g/dL (11.2-15.7) L 06/13/24 06:40 Hct 31.5 % (36.0-46.0) L 06/13/24 06:40 Plt Count 200 10^3/uL (130-400) 06/13/24 06:40 INR 1.0 (0.9-1.1) 06/12/24 17:40 Creatinine 1.6 mg/dL (0.55-1.02) H 06/13/24 06:40 DVT Prophylaxis: Reviewed (SCDs - per H+P no anticoagulation or thrombolytic therapy was recommended) Relevant Labs Relevant Labs: Sodium 138 mmol/L (136-145) 06/13/24 06:40 Potassium 3.4 mmol/L (3.5-5.1) L 06/13/24 06:40 Chloride 106 mmol/L (98-107) 06/13/24 06:40 Magnesium 1.8 mg/dL (1.8-2.4) 06/13/24 06:40 Electrolytes, C-Reactive P, ESR: Reviewed (No new labs for today) DM Control DM Control: Glucose 104 mg/dL (74-106) 06/13/24 06:40 Finger Stick Blood Glucose 124 0813 Finger Stick Blood Glucose 124 0758 Finger Stick Blood Glucose 124 0758 DM Control: Reviewed Insulin Dosing, Diabetic Medication: Has order for SS insulin Cardiac Review Cardiac Review: Blood Pressure 151/89 0828 Blood Pressure 162/64 0500 Blood Pressure 152/60 0003 BP, HR, EF%: Reviewed (HR WNL) List meds needing interventions: Has order for losartan 25mg daily and metoprolol 12.5mg BID - permissive HTN per H+P QTc Review QTc: Reviewed (424 from 06/12/24) IV to PO Switch IV Medications: Reviewed Home Meds Home Med List reviewed: Intervened Relevent Home Meds Not ordered & why?: Prescription recently filled for quetiapine 25mg HS on 05/25/24. Spoke with provider during morning rounds, provider is looking into it. Current Meds Current Medication Order Review: Intervened Comments: Changed atorvastatin order from 20mg tablets to 40mg tablets for easier administration
--- NOTE | 2024-06-14 10:48 | W.SPSTE ---
Date of service: 06/14/24 Time of Service: 08:20 Subjective Clinical (Bedside) Swallow Evaluation Speech Language Pathology Referred by: Abelardo Benítez Referral Type: Clinical Swallow Evaluation Reason for Referral/HPI: Jennifer Archer is a 73 yo female with PMH of vascular dementia who was adm to [facility] 06/13/24 with a 3-day history of neurological symptoms, including left visual field changes and altered mental status. CT of the head revealed hemorrhagic infarct of the right parietal lobe. MRI is still pending. Prior to admission Jennifer lived at home with her niece/primary laminator preforms Donna.Per comp field case manager note, Jennifer has dementia at baseline though is generally more oriented than current admission. BARBER SHOP OPERATOR IMPRESSIONS & RECOMMENDATIONS: Jennifer was seen today for dysphagia evaluation and cognitive-communication evaluation in the setting of acute CVA. She presented as pleasant, conversant, engaged, and confused. She presents with no signs/symptoms of dysphagia and is tolerating a regular diet/thin liquids without difficulty. She was oriented to self, season/general time of year, and expressed awareness of memory challenges. She was not oriented to year, month, siltation/stroke dx, or location. After using the restroom, she required assistance for using soap/paper towels to wash hands, appearing to have some visual difficulty locating the items within her direct visual field. This was also noted when she was scanning her tray and asking 'where did my toast go?' while it was on her plate. The SLUMS was attempted, though discontinued due to difficulty with tasks/severity of confusion. Ultimately, anticipate Jennifer will require full supervision/support in light of severity of cognitive impairments, including not being left home alone. Recommend BARBER SHOP OPERATOR services at shelter or home health if 24/7 supervision provided. Prognosis for BARBER SHOP OPERATOR services is guarded in light of prior hx dementia and severity of impairment- though ongoing BARBER SHOP OPERATOR services beneficial for diagnostic treatment and caregiver support/training. FURTHER BARBER SHOP OPERATOR SERVICES: Patient to be followed while on unit. Recommend BARBER SHOP OPERATOR services at shelter or home health if 24/7 supervision provided. Diet Recommendations: Solids: Regular Liquids: Thin Medications: With sip of liquid Supervision with PO: Intermittent (Support with tray set up, positioning, check-ins prn) STRATEGIES: Upright for all PO intake. Oral hygiene BID/2x per day SUBJECTIVE: Patient received alert/awake, confused, agreeable to evaluation Pain Reported? None Baseline Swallow Function: Patient denies swallowing difficulty prior to admission and eats a regular diet at baseline. PO Trials Assessed: IDDSI 0 Thin Liquids - iced tea via straw IDDSI 6 Soft & Bite Size Solid - strawberries IDDSI 7 Regular Solid - toast Oral Mechanism Examination: Dentition is WFL. Oral mucosa is WFL. Cranial Nerve Assessment: CN V ? Trigeminal Facial Sensation WNL Jaw Strength/ROM WNL ?WNL CN VII- Facial WNL labial ROM, strength, coordination. WNL lingual sensation WNL CN IX ? Glossopharyngeal WNL palatal elevation with phonation. No evidence of nasal emissions WNL CN X ? Vagus WNL Vocal quality and volume. Strong/sharp volitional cough WNL CX XII ? Hypoglossal WNL lingual ROM, strength, coordination WNL Oral Phase Findings: WFL Pharyngeal Phase Findings: WFL Cognitive-Communication Assessment: Orientation: + self/full name, season - month (May), year (1975), day (Friday), location (not sure), situation (I'm a little off), state ([place]) SLUMS (Attempted, discontinued due to level of severity of impairment): Word fluency/naming animals = 3/minute Following oral instructions (Please place an X on the triangle) = 0/1 Clock Drawing: Did not take pen as expected despite verbal prompting x3. Finger traced [place] and traced multiple lines coming out from the center. 5 word recall: Immediate = 0/5 Neville Naming Test Short Form = 10/15, + 2 with phonemic cue + 3 with multiple written choice cue Fo4 Errors: Spiderman for octopus, thunder for volcano, pine tree for cactus ? ASSESSMENT: Further BARBER SHOP OPERATOR Services indicated for cognitive-communication diagnostic treatment to support with discharge planning. Patient to be followed while on unit.] Recommendation at Discharge: BARBER SHOP OPERATOR Services at [facility], BARBER SHOP OPERATOR Services via Home Health (if full supervision is provided in home setting) Education Provided to: Nursing Topics Addressed: BARBER SHOP OPERATOR findings/recommendations PLAN: Frequency: 1-2x/week for 1-2 weeks Goals: Housekeeping Room Attendant Goals: Patient will optimize cognitive-communication functioning to maximize QOL/safety. Short Term Goals: Patient will participate in ongoing diagnostic treatment addressing areas of cognitive-communication. Family/staff will verbalize comprehension of education provided re: diagnosis, cognitive impairment, and modifications/strategies to optimize functioning. BARBER SHOP OPERATOR CPT Code: 97006 Clinical Swallowing Evaluation (820-830, 10 min) 35561?Evaluation of speech sound production with evaluation of language comprehension and expression (830-855, 25 min) TOTAL TIME: 35 Minutes (820-855)
--- NOTE | 2024-06-14 11:50 | DI.US_ITS ---
APPROVED REPORT EXAM: Comprehensive 2D, Doppler, and color-flow Echocardiogram Patient Location: In-Patient Room/Bed: [facility] Agriculturist: Henrique Oneill RDCS (AE) Indications: CVA Echo Enhancing Agent Indication: Rule out Shunt Agent(s) / Amount(s) Used: Agitated Saline 30.0 cc Comments: Contrast study was performed with 3 IV injections of 10ccs of agitated normal saline, at re st, with cough and post valsalva maneuver. Negative contrast study for shunt flow. Conclusion Borderline concentric left ventricular hypertrophy. Ejection fraction is 65%. Wall motion is normal Normal right ventricular size and function Both atria are normal in size No intracardiac shunting is identified with injection of agitated saline There are no structural valvular abnormalities Mild mitral regurgitation Estimated right ventricular systolic pressure is 29 mmHg Wall motion Left Ventricle The left ventricle is normal size. The left ventricular systolic function is normal. The left ventric ular ejection fraction is within the normal range. Borderline concentric left ventricular hypertrophy . There is normal LV segmental wall motion. There is no ventricular septal defect visualized. LVEF is 65%. Right Ventricle The right ventricle is normal size. The right ventricular systolic function is normal. Atria The left atrium size is normal. The right atrium size is normal. The interatrial septum is intact wit h no evidence for an atrial septal defect. Saline bubble contrast intravenous injection does not demo nstrate PFO. Aortic Valve The aortic valve is normal in structure. Aortic valve is trileaflet. There is no aortic valvular sten osis. No aortic regurgitation is present. Mitral Valve The mitral valve is normal in structure. No evidence of mitral valve stenosis. Mild mitral regurgitat ion. Tricuspid Valve The tricuspid valve is normal in structure. There is no tricuspid valve stenosis. Trace tricuspid reg urgitation. The RVSP is 28.8 mmHg. Pulmonic Valve The pulmonary valve is normal in structure. There is no pulmonic valvular stenosis. Mild pulmonic reg urgitation. Great Vessels The aortic root is normal in size. The ascending aorta is normal in size. Aortic arch is not well vis ualized. IVC is normal in size and collapses >50% with inspiration. Pericardium There is no pericardial effusion. 2D Dimensions IVSD d PLAX 1.02 cm F: 0.6-1.0 Ao Root d 2.36 cm F: 2.7 - 3.3 LVPW d PLAX 0.99 cm F: 0.6 - 1.0 Ao Asc Diam d 2.66 cm F: 2.3 - 3.1 LVID d PLAX 4.57 cm F: 3.8 - 5.2 LVDs 2.96 cm F: 2.2 - 3.5 LV EF Teichholz 64.6 % FS 35.19 % LV EDV (Teich) 95.7 mL LV ESV (Teich) 33.9 mL M-Mode TAPSE 2.10 cm (M/F) >1.7 Auto EF LV EDV A4C 67.4 mL LV EDV A2C 67.0 mL LV EDV BP 67.0 mL LV ESV A4C 23.6 mL LV ESV A2C 22.0 mL LV ESV BP 22.8 mL LVEF(%) A4C 65.0 % LVEF(%) A2C 67.1 % LVEF(%) BP 65.9 % LV SV A4C 43.8 ml LV SV A2C 45.0 ml LV SV BP 44.1 ml LV CO A4C 2.3 L/min LV CO A2C 2.2 L/min LV CO BP 2.2 L/min HR A4C 52.10 BPM HR A2C 48.92 BPM LV EDV Index (BP) LA Volume LA Length A4C 3.8 cm LA Length A2C 4.6 cm LA Area A4C s 11.57 cm2 LA Area A2C s 12.84 cm2 LA Vol A4C A-L 29.96 mL LA Vol A2C A-L 30.55 mL LA Vol Biplane A-L 33.2 mL LA Vol A4C MOD 28.1 mL LA Vol A2C MOD 29.1 mL LA Vol BP MOD 31.2 mL RA Volume RA Area A4C 7.3 cm2 RA ESV A4C (A-L) 12.2mL RA Vol/BSA A4C A-L RA Length A4C 3.7 cm RA ESV A4C (MOD) 11.6mL LV Diastology MV E' medial 0.055 (>0.07 m/s) MV E Vmax 1.30 (0.4-1.3 m/s) MV E/E' MED 23.43 (<14) MV A Vmax 0.90 (0.4-1.3 m/s) MV E' lateral 0.073 (>0.1 m/s) E/A Ratio 1.4 MV E/E' LAT 17.84 (<14) MV E' Average 0.064 m/s MV E/E'(average) 20.26 Aortic Valve AoV Vmax 0.99 m/s LVOT Vmax 0.98 m/s AoV Peak Grad 3.9 mmHg LVOT Peak Grad 3.9 mmHg AoV Area (Vmax) 2.15 cm2 LVOT VTI 0.284 m AoV VTI 0.291 m LVOT Mean Grad 1.8 mmHg AoV Mean Reginaldo. 0.73 m/s LVOT SV 61.20 mL AoV Mean Grad 2.3 mmHg LVOT Diam s 1.65 cm AoV Area (VTI) 2.10 cm2 AV Regurg Peak Gr. 3.90 mmHg Velocity Ratio 0.99 Mitral Valve MV DT 136 (160-240 msec) MV Vmax TIPS 1.28 m/s MV Mean Grad 1.7 (<2mmHg) MV VTI 0.406 m Pulmonary Valve PV Vmax 1.15 (0.5-1.5 m/s) RVOT Vmax 0.85 m/s PV Peak Grad 5.3 mmHg RVOT Peak Gr. 2.9 mmHg PV Mean Reginaldo 0.84 m/s RVOT VTI 0.238 m PV Mean Grad 3.2 mmHg RVOT Mean Gr. 1.4 mmHg Tricuspid Valve RA Pressure 3.00 mmHg TR Vmax 2.54 m/s TR Peak Grad 25.8 mmHg RVSP (TR) 28.8 mmHg
--- NOTE | 2024-06-14 12:08 | PT.INTREAT ---
PT Notes Visit Reasons: Subacute right occipital CVA, hypertension Inpatient Physical Therapy Treatment Note [facility] Date: 06-14-2024 PRECAUTIONS:Fall risk, Left Hemianopsia, telemetry, IV Right forearm SUBJECTIVE: Pt reports she feels good. OBJECTIVE: 1st session/morning session shortened d/t MRI; During second session pt with increased confusion attempting to use her plate of food as a telephone. Pt unable to identify that it was a plate. ?Increased confusion and apraxia noted ? PAIN: denies VITALS: monitored via telemetry 1st session: 151/89 Therapeutic Activities (28813t[]): Direct one-on-one instruction in dynamic activities to improve functional performance. ? BED MOBILITY/TRANSFERS? Rolling L/R: independent Supine-sit: independent ? Sit-supine: [] independent? Sit-stand: SBA? Stand-sit: SBA ? Bed-Chair: SBA ? Chair-bed: SBA cues to avoid obstacles on the left Provided skilled cues and instruction on performance and technique throughout. Gait Training (14109q9): Direct one-on-one instruction and skilled instruction in: [x] turning and movement with proper form [x] Provided verbal cues for technique [] Provided instruction in gait pattern [x] Patient education regarding pacing and breathing techniques to maximize activity tolerance? GAIT? Assistive Device: no device? Weight bearing: full Assist: SBA ? with cues for direction and to avoid objects d/t Left visual field deficits/ hemianopsia. Pt instructed to stop and turn head to scan environment for potential hazards. ? Distance:? 148 feet with turns and obstacle management? Deviation: narrow RASHEL reciprocal pattern. ? STAIRS: 2 x 6 inch steps and 3x 4 steps with SBA and B rails step to pattern? During 2nd session pt required increase assist to manage turns to the left pt ambulating 160 feet x 2 with frequent directional changes ASSESSMENT:?Pt demonstrates Left Hemianopsia limiting her ability to navigate without supervision. She demonstrates impaired ability to tolerate scanning environment/ turning head as she is walking at this time. With auditory stimulus to the left she will rotate her head to the left however when instructed to scan to the left she stops at approximately 40 degrees of rotation to left. At end of 2nd session she was given soup and crackers. She was unable to locate items on the left consistent with her left homonymus hemianopsia. Pt will benefit from further visual tasks/retraining to facilitate scanning and improve mobility. Pt also noted with s/s of left visual neglect. PLAN: Continue PT for strengthening neuromuscular reeducation gait including stairs TREATMENT CODE/TIME: 1st session: 46026 for 14 mins and 1 unit/ [id number]; 2nd session [id number] 1 36671 x 1 [id number] DISCHARGE RECOMMENDATION: SNF vs Home with HH PT
--- NOTE | 2024-06-14 12:24 | W.PM.PROGNOT ---
Date of Service Date of service: 06/14/24 Time of Service: 12:24 Assessment and Plan Assessment and plan (1) CVA (cerebral vascular accident): Start date: 06/13/24 Status: Chronic Assessment and plan: -presented with 3-day history of neurological symptoms over her left visual field and some problems with expression and intentional gaze. -found to have right perietal lobe infarct with petechil hemorrhage on initial CTA and was redemonstrated on repeat CT -She was loaded with aspirin [place] [facility] [place] continue plavix for 3 weeks, asa indefinitely -No anticoagulation or thrombolytic therapy was recommended and with very CTA revealing stenosis, neurosurgery was consulted and did not recommend any further interventions but continued medical care. -TTEwithout shunting or other acute findings -MRI showed redemonstration of large right parietal occipital region subacute infarct Qualifiers: CVA mechanism: occlusion Laterality of affected vessel: right Precerebral and cerebral artery: middle cerebral artery Qualified Code(s): I63.511 - Cerebral infarction due to unspecified occlusion or stenosis of right middle cerebral artery (2) Dementia: Status: Chronic Assessment and plan: -appears to be vascular dementia with patient having previous history of CVA though there was only bilateral periventricular white matter disease on previous MRI 01/19/2024. Qualifiers: Dementia behavioral or psychological symptom: without behavioral, psychotic, or mood disturbance or anxiety Dementia severity: moderate Dementia type: vascular dementia Qualified Code(s): F01.B0 - Vascular dementia, moderate, without behavioral disturbance, psychotic disturbance, mood disturbance, and anxiety (3) HTN (hypertension): Status: Chronic Assessment and plan: Permissive hypertension with her acute stroke. Continue metoprolol low-dose. Qualifiers: Hypertension type: primary hypertension Qualified Code(s): I10 - Essential (primary) hypertension (4) Tobacco abuse: Status: Chronic Assessment and plan: Patient desires nicotine patch while hospitalized and will be given low-dose as 7 mg/h. She is concerned about withdrawal. (5) Chronic hyperglycemia: Status: Chronic Assessment and plan: Patient to have glucometer before meals and at bedtime with incidence of coverage if needed. She is not currently on treatment for this problem. She had no overt diagnosis of diabetes. Hemoglobin A1c will be checked. (6) Hyperlipidemia: Status: Chronic Assessment and plan: Increase atorvastatin to 80 mg daily. Qualifiers: Hyperlipidemia type: mixed hyperlipidemia Qualified Code(s): E78.2 - Mixed hyperlipidemia (7) CKD (chronic kidney disease) stage 3, GFR 30-59 ml/min: Status: Chronic Assessment and plan: Monitor lab while hospitalized. There is no associated anemia. Qualifiers: Chronic kidney disease stage 3 subtype: stage 3b (GFR 30-44) Qualified Code(s): N18.32 - Chronic kidney disease, stage 3b Subjective Subjective Interval history since last seen: Patient states that she is doing well today and understands that we will obtain echocardiogram and MRI for further evaluation of her CVA. Exam Narrative Exam Narrative: well appearing female sitting up in the chair in no acute distress, AOx4, heart RRR, lungs CTAB, abdomen soft, non-tender, non-distended, CN II-XII intact, left hemianopsia, normal sensation and strength in bilteral upper and lower extremities Objective Last Vital Signs Temp 98.8 F 06/14/24 08:28 Pulse 61 06/14/24 08:28 Resp 18 06/14/24 08:28 BP 151/89 H 06/14/24 08:28 Pulse Ox 98 06/14/24 08:28 Time Spent with Patient Time Spent with Patient: >50 minutes Time was spent: preparing to see the patient(eg.review tests), obtaining and/or reviewing separately otained hiistory, ordering medications,tests, procedures, referring, communicating with other health patient care manager, indepentently interpreting results, counseling the patient and care coordination
[2024-06-14 12:30] VITALS: BP 153/91; PULSE 57; RESP 17; TEMP 37.2; O2SAT 100
[2024-06-14] MEDS: Normal Saline Flush 10 ML SYR IVP (12:42)
[2024-06-14] MEDS: Insulin Aspart 300 UNITS/3 ML PEN SC (16:58)
--- NOTE | 2024-06-14 17:10 | CMPROGNOTE_ITS ---
Date of service: 06/14/24 Time of Service: 17:12 Care Management Progress Note Progress Note Text Progress Note Text: Jennifer was sitting up in her chair when CM met with her. Her niece, Donna was in the room visiting. Donna stated that Jennifer continues to be more confused and disoriented than her baseline. She asked for a medical update, and requested to speak to MD about the results of testing that took place today. CM informed the MD of the request. CM will continue to follow. Discharge Potential Discharge Needs: PCP F/U Appt Anticipated Barriers to Discharge: None Identified Patient/Family Education Needs: Review discharge instructions, discuss Ask Me Three Transportation: Private vehicle Plan: Anticipate Jennifer will return home with new orders for HH RN, PT, OT, ST, [employer]. Her niece will drive her home via private vehicle. She will follow up with her PCP and discharge plan of care. CM will continue to follow. SDOH(Care Management) Screening Will the Patient Participate in the Screening?: Unable to obtain
[2024-06-14 19:42] VITALS: BP 181/74; PULSE 60; RESP 16; TEMP 36.2; O2SAT 99
[2024-06-14] MEDS: Atorvastatin 40 MG TAB 80 MG PO (20:48)
[2024-06-15 02:10] VITALS: BP 141/56; PULSE 50; RESP 15; TEMP 36.6; O2SAT 98
[2024-06-15 08:46] VITALS: BP 153/58; PULSE 47; RESP 18; TEMP 36.1; O2SAT 99
[2024-06-15] MEDS: Losartan 25 MG TAB PO (08:49)
[2024-06-15] MEDS: Aspirin E.C. 81 MG TABEC PO (08:50)
[2024-06-15] MEDS: Clopidogrel 75 MG TAB PO (08:50)
[2024-06-15] MEDS: Sertraline 25 MG TAB PO (08:50)
[2024-06-15 11:28] VITALS: BP 151/53; PULSE 53; RESP 18; TEMP 36.6; O2SAT 100
--- NOTE | 2024-06-15 11:31 | PTTR_ITS ---
PT Notes Visit Reasons: Subacute right occipital CVA, hypertension Inpatient Physical Therapy Treatment Note [facility] Date: 06-15-2024 PRECAUTIONS: Left hemianopsia and left neglect, Fall Risk, Telemetry, SUBJECTIVE: Pt denies headache, and visual deficits. OBJECTIVE: Patient sleeping on left side when approached for PT. She was easily arousable?and agreeable to participate. ? PAIN: Denies VITALS: Monitored by telemetry Therapeutic Activities (97021): Direct one-on-one instruction in dynamic activities to improve functional performance. ?Provided skilled cues and instruction on performance and technique throughout. including turning and pacing to increase activity tolerance . ? BED MOBILITY: Independent TRANSFERS?: independent sit to stand and bedt o from chair when on the right . pt unable to locate chair when on her left.? Stand scanning tasks to increase awareness to left including tabletop tasks and object identification x 4 mins x 2 with sit rest between. Standing dynamic task retrieval by color and shape with supervision and cues for recall of the color and shape looking for. Pt able to locate familiar items without color as the id entifying criteria. ?? Ambulation: pt ambulate 25 feet x 1, 160 feet x 2 with directional changes and through doorways. Pt drifts toward right with head turn slightly to right. Pt unable to locate doors or objects on left without visual tracking cue from right to left . ? During 2nd session pt able to respond to left right verbal cue without visual cue during ambulation 160 feet x 2. ? STAIRS:2 x 6 step and 3 x 4 step with 1 rail x 2 trials reciprocal pattern up step to descending SBA pt with impaired depth perception with change in step height. ? ASSESSMENT: Jennifer presents with improved ability to attend to task and less restlessness. Pt denies visual deficits/vision impaired when asked. Patient continues with signs and symptoms of left hemianopsia. Pt able to scan to left when instructed however unable to locate objects on the left unless she initiates turning to the right in a false pass to finally locate item. Pt very cooperative and motivated. Pt able to attend to all tasks. She able to identify colors around the room with diffculty noted when shape identification was added to color. Pt able to retrieve items from floor without LOB. PLAN: Continued skilled PT for functional mobility retraining with visual compensations, balance retraining strengthening TREATMENT CODE/TIME: 1st session: 31457 x 27 minutes for 2 units/1100?1127 2nd session: 41838 x 25 minutes for 2 units/ [id number] DISCHARGE RECOMMENDATION: Acute Rehab Setting.
--- NOTE | 2024-06-15 13:20 | W.SPSTP ---
Date of service: 06/15/24 Time of Service: 13:20 Subjective Jennifer was contacted at bedside after eating lunch this date. Her family was present on arrival of clinician but left before starting therapy/assessment tasks. Jennifer denies any pain or discomfort and appears in very good spirits. She is unaware of any cognitive or visual spatial deficits when asked at session begin. Objective/Assessment/Plan Objective Treatment Techniques & Outcomes: Prescription Benefit Specialist Goals: Patient will optimize cognitive-communication functioning to maximize QOL/safety. Short Term Goals: Patient will participate in ongoing diagnostic treatment addressing areas of cognitive-communication. Reading: Patient requires max visual/tactile cues ([place] finger scaning with tactile L page anchor) to read subtitle of magazine without leaving out words on L side of page. Visual Scanning: Symbol Cancellation activity: Patient id'd 5 correct symbols and 2 incorrect symbols with Mod cues. Visual memory/attention to detail was a barrier to this task, as well as L neglect. Patient only identifying symbols on R side of page. Required MAX assist to identify remaining symbols with use of L visual anchor, partner-assisted scanning, and repeated exposure/comparison (executive function/socratic questioning) to compensate for poor visual memory. [facility] Mental Status Examination (UMS) Orientation and Attention: 1/3 (Oriented to YEAR only) Delayed recall with interference: 0/5 Calculation and Registration: 0/3 Problem solving appeared intact, but patient with poor immediate recall of numbers required to solve addition/subtraction. Category Namin/3 (many repetitions of Dog, Cat, Rat) Registration and Digit Span: 1/2 Digit span of 3, unable to reverse 4 digit string even with repetitions. Clock Drawin/4 (see below) Visual Spatial: 4/4 Story Recall with Executive Function: 2/8 Family/staff will verbalize comprehension of education provided re: diagnosis, cognitive impairment, and modifications/strategies to optimize functioning. Discussed room/body scanning cues to use with Physical Therapist. Provided simple preliminary education with multiple repetitions regarding Your brain doesn't notice your left side. Patient understands when told but with poor recall within session/from task to task when asked what is happening with her vision. Assessment Patient demonstrates improving sustained attention and ability to engage in assessment and therapeutic activities this date. SLUMS was administered and patient scored 7/30, largely due to poor recall, working memory, attention, and visuospatial skills. Continues with very obvious L neglect but shows emerging stimulability for strategies such as visual anchors (red line on L page margin, etc), body anchors (touch your chin to your L shoulder and look around), etc. She requires max support to implement and sustain these strategies through a task. Her insight into deficits remains very low, typical of right hemisphere damage, and is also impacted by very poor short term recall. Will incorporate orientation goals into therapy. While not oriented to exact day or place, she was oriented to year and says she is in [place] and it is [place] (it is Friday). Appears unclear with her medical diagnosis at this time. Will continue to reinforce situational orientation, engage sustained attention, and L scanning strategies for reading in speech therapy sessions. Recommend subacute rehab to maximize rehab potential during acute phase of recovery especially given severity of deficits and poor insight. Plan Plan: Frequency: 1-2x/week for 1-2 weeks Recommendations Recommendations: Place important items on R side of patient table/room/tray. Provide visual anchors and cues for gaze redirection. Provide repetitions to improve carryover of important information. Information should be provided to patient one piece at a time to ensure comprehension given low working memory/attention capacity. Total Time Spent: 45 min
--- NOTE | 2024-06-15 13:52 | CMPROGNOTE_ITS ---
Date of service: 06/15/24 Time of Service: 13:52 Care Management Progress Note Progress Note Text Progress Note Text: Jennifer was sitting up in her chair when CM met with her. She was pleasant in interaction, delayed in some responses but appeared much improved compared to reports of her presentation yesterday. She did not present with any obvious signs of confusion though she took time responding to questions such as who resides with her (niece, Donna). CM discussed PT recommendations for Acute Rehab and referral process; Jennifer verbalized preferring to return home if possible. CM discussed need for Acute Rehab with PT and S/T who both advised that the post CVA optimal recovery window with acute rehab benefit should be utilized as soon as possible. CM requested CM AA send referrals for review. CM following. Discharge Potential Discharge Needs: Consult Consult Services Needed: Nutrition (DM Heart Healthy diet ), Palliative (Recommending O/P to review Health Care agent forms, COLST), Speech and Other (OT, Tele-Neuro) and PT Evaluation Patient/Family Education Needs: Review discharge instructions, discuss Ask Me Three Plan: Anticipate Jennifer will return home with new orders for HH RN, PT, OT, ST, [employer] and recommendation for outpatient Palliative follow up-vs-Acute Rehab (referrals sent to [facility] and [facility] for review). CM will continue to follow. SDOH(Care Management) Screening Will the Patient Participate in the Screening?: Unable to obtain
--- NOTE | 2024-06-15 14:47 | CHAPLAIN ---
Jennifer was sitting up in the chair talking with two visitors who had brought her treats from [facility]. One may have been her niece Donna who is is Jennifer's caregiver. According to Care Management notes, Jennifer daughter and she is estranged from two sons. Jennifer has been confused and has dementia at baseline. She was pleasant in conversing with me. I didn't ask her questions. I explained my role and offered support.
--- NOTE | 2024-06-15 16:41 | PGE_ITS ---
Date of Service Date of service: 06/15/24 Time of Service: 16:41 Assessment and Plan Assessment and plan (1) CVA (cerebral vascular accident): Start date: 06/13/24 Status: Chronic Assessment and plan: -presented with 3-day history of neurological symptoms over her left visual field and some problems with expression and intentional gaze. -found to have right perietal lobe infarct with petechil hemorrhage on initial CTA and was redemonstrated on repeat CT -She was loaded with aspirin Plavix by recommendation of [place] [facility] continue plavix for 3 weeks, asa indefinitely -No anticoagulation or thrombolytic therapy was recommended and with very CTA revealing stenosis, neurosurgery was consulted and did not recommend any further interventions but continued medical care. -TTEwithout shunting or other acute findings -MRI showed redemonstration of large right parietal occipital region subacute infarct Qualifiers: CVA mechanism: occlusion Precerebral and cerebral artery: middle cerebral artery Laterality of affected vessel: right Qualified Code(s): I63.511 - Cerebral infarction due to unspecified occlusion or stenosis of right middle cerebral artery (2) Dementia: Status: Chronic Assessment and plan: -appears to be vascular dementia with patient having previous history of CVA though there was only bilateral periventricular white matter disease on previous MRI 01/19/2024. Qualifiers: Dementia type: vascular dementia Dementia severity: moderate Dementia behavioral or psychological symptom: without behavioral, psychotic, or mood disturbance or anxiety Qualified Code(s): F01.B0 - Vascular dementia, moderate, without behavioral disturbance, psychotic disturbance, mood disturbance, and anxiety (3) HTN (hypertension): Status: Chronic Assessment and plan: Permissive hypertension with her acute stroke. Continue metoprolol low-dose. Qualifiers: Hypertension type: primary hypertension Qualified Code(s): I10 - Essential (primary) hypertension (4) Tobacco abuse: Status: Chronic Assessment and plan: Patient desires nicotine patch while hospitalized and will be given low-dose as 7 mg/h. She is concerned about withdrawal. (5) Chronic hyperglycemia: Status: Chronic Assessment and plan: Patient to have glucometer before meals and at bedtime with incidence of coverage if needed. She is not currently on treatment for this problem. She had no overt diagnosis of diabetes. Hemoglobin A1c will be checked. (6) Hyperlipidemia: Status: Chronic Assessment and plan: Increase atorvastatin to 80 mg daily. Qualifiers: Hyperlipidemia type: mixed hyperlipidemia Qualified Code(s): E78.2 - Mixed hyperlipidemia (7) CKD (chronic kidney disease) stage 3, GFR 30-59 ml/min: Status: Chronic Assessment and plan: Monitor lab while hospitalized. There is no associated anemia. Qualifiers: Chronic kidney disease stage 3 subtype: stage 3b (GFR 30-44) Qualified Code(s): N18.32 - Chronic kidney disease, stage 3b Subjective Subjective Interval history since last seen: Patient states that she is doing well today and has no complaints or concerns. Discussed patient's care with her niece who agrees to be beneficial for patient to discharge to subacute rehab given her stroke and recent change in mental status in combination with her dementia. Exam Narrative Exam Narrative: well appearing female sitting up in the chair in no acute distress, AOx4, heart RRR, lungs CTAB, abdomen soft, non-tender, non-distended, CN II-XII intact, left hemianopsia, normal sensation and strength in bilteral upper and lower extremities Objective Last Vital Signs Temp 97.9 F 06/15/24 11:28 Pulse 53 L 06/15/24 11:28 Resp 18 06/15/24 11:28 BP 151/53 H 06/15/24 11:28 Pulse Ox 100 06/15/24 11:28 Time Spent with Patient Time Spent with Patient: >50 minutes Time was spent: preparing to see the patient(eg.review tests), obtaining and/or reviewing separately otained hiistory, ordering medications,tests, procedures, referring, communicating with other health urgent care nurse practitioner, indepentently interpreting results, counseling the patient and care coordination
[2024-06-15 19:29] VITALS: BP 187/71; PULSE 58; RESP 18; TEMP 36.1; O2SAT 98
[2024-06-15] MEDS: Atorvastatin 40 MG TAB 80 MG PO (19:30)
[2024-06-15] MEDS: Metoprolol 12.5 MG TAB PO (19:30)
[2024-06-16] VITALS (7 sets, daily range): BP systolic 117–187; BP diastolic 57–103; PULSE 48–65; RESP 16–18; TEMP 36.5–37.2; O2SAT 98–100
[2024-06-16] MEDS: Aspirin E.C. 81 MG TABEC PO (08:30)
[2024-06-16] MEDS: Metoprolol 12.5 MG TAB PO (08:30)
[2024-06-16] MEDS: Sertraline 25 MG TAB PO (08:30)
[2024-06-16] MEDS: Clopidogrel 75 MG TAB PO (08:30)
[2024-06-16] MEDS: Losartan 25 MG TAB PO (08:30)
--- NOTE | 2024-06-16 12:44 | PTTR_ITS ---
PT Notes Visit Reasons: Subacute right occipital CVA, hypertension Inpatient Physical Therapy Treatment Note [facility] Date: 06-16-2024 PRECAUTIONS: Left hemianopsia and left neglect, Fall Risk, Telemetry, SUBJECTIVE: Pt denies headache, and visual deficits. OBJECTIVE: Patient sleeping on right side when approached for PT. She was easily arousable?and agreeable to participate. ? PAIN: Denies VITALS: monitored by Nursing Therapeutic Activities ([id number]): Direct one-on-one instruction in dynamic activities to improve functional performance. ?Provided skilled cues and instruction on performance and technique throughout. including turning and pacing to increase activity tolerance . ? BED MOBILITY: Independent TRANSFERS?: independent sit to stand and bed to/ from chair regardless of location ?? Ambulation: pt ambulate 25 feet x 5 to simulate mobility within home room to room throughout day. 220 feet x 2 SBA cues for direction and location of destination. ? STAIRS:2 x 6 step and 3 x 4 step with 1 rail x 2 trials reciprocal pattern up step to descending SBA pt with impaired depth perception with change in step height. ?Therex(70153): sit to stand x 10 reps from 18 without use of UE stand with BUE support: hip abduction, heel raises, alternating toe tap to 6 step 10 reps and lateral step up R/L to 6 step 2 sets of 5reps with rest between. ? ASSESSMENT: Jennifer able to attend to tasks and improvement in ability to scan to left on command without visual cue. She able to don/doff socks in seated position this session without cue to perform on both feet. She has increased speed of ambulation as noted by demonstrating slight arm swing BUE. PLAN: Continued skilled PT for functional mobility retraining with visual compensations, balance retraining strengthening TREATMENT CODE/TIME: [id number] for 1 unit, 11089 [id number] for 1 unit/ [id number] 2748 DISCHARGE RECOMMENDATION: Acute Rehab Setting.
--- NOTE | 2024-06-16 14:08 | PGE_ITS ---
Date of Service Date of service: 06/16/24 Time of Service: 14:08 Assessment and Plan Assessment and plan (1) CVA (cerebral vascular accident): Start date: 06/13/24 Status: Chronic Assessment and plan: -presented with 3-day history of neurological symptoms over her left visual field and some problems with expression and intentional gaze. -Initial and repeat CT of the head showed right perietal lobe infarct with petechil hemorrhage -Loaded with aspirin Plavix as per [facility] [place]rology recommendation Continue plavix for 3 weeks, asa indefinitely -No anticoagulation or thrombolytic therapy was recommended and with very CTA revealing stenosis, neurosurgery was consulted and did not recommend any further interventions but continued medical care. -TTE without shunting or other acute findings; LVEF is 65% -MRI confirmed large right parietal occipital region subacute infarct Qualifiers: CVA mechanism: occlusion Laterality of affected vessel: right Precerebral and cerebral artery: middle cerebral artery Qualified Code(s): I63.511 - Cerebral infarction due to unspecified occlusion or stenosis of right middle cerebral artery (2) Dementia: Status: Chronic Assessment and plan: -appears to be vascular dementia with patient having previous history of CVA though there was only bilateral periventricular white matter disease on previous MRI 01/19/2024. Qualifiers: Dementia behavioral or psychological symptom: without behavioral, psychotic, or mood disturbance or anxiety Dementia severity: moderate Dementia type: vascular dementia Qualified Code(s): F01.B0 - Vascular dementia, moderate, without behavioral disturbance, psychotic disturbance, mood disturbance, and anxiety (3) HTN (hypertension): Status: Chronic Assessment and plan: Initially permissive hypertension with her acute stroke. Continue metoprolol low-dose. Qualifiers: Hypertension type: primary hypertension Qualified Code(s): I10 - Essential (primary) hypertension (4) Tobacco abuse: Status: Chronic Assessment and plan: Continue NRT (5) Chronic hyperglycemia: Status: Chronic Assessment and plan: Hemoglobin A1c pending Glucose 101-138 continue gluc Ac and HS with SSI (6) Hyperlipidemia: Status: Chronic Assessment and plan: continue increased dose of atorvastatin to 80 mg daily. Qualifiers: Hyperlipidemia type: mixed hyperlipidemia Qualified Code(s): E78.2 - Mixed hyperlipidemia (7) CKD (chronic kidney disease) stage 3, GFR 30-59 ml/min: Status: Chronic Assessment and plan: Cr 1.7 was 1.6 on admit BMP in AM Qualifiers: Chronic kidney disease stage 3 subtype: stage 3b (GFR 30-44) Qualified Code(s): N18.32 - Chronic kidney disease, stage 3b (8) Discharge planning issues: Status: Acute Assessment and plan: CM : referrals sent - spoke to [facility] in [place] Niece to be contacted re: decision making Discussed with Dr. Coelho Subjective Subjective Patient reports: tolerating liquids well, tolerating a regular diet, voiding w/o difficulty and bowel movement; denies diarrhea, nausea, vomiting, shortness of breath or fever Exam Narrative Exam Narrative: patient in bed w/o acute distress, AOx3, regular heart rate and rhythm , lungs CTAB, abdomen soft, non-tender, non-distended, CN II-XII intact, left hemianopsia - patient with normal eye ROM Moves all 4 ext, brass cutter/ strength 5/5 Objective Last Vital Signs Temp 36.6 C 06/16/24 12:49 Pulse 60 06/16/24 12:49 Resp 18 06/16/24 12:49 BP 128/74 06/16/24 12:49 Pulse Ox 98 06/16/24 12:49 Time Spent with Patient Time Spent with Patient: >50 minutes Time was spent: preparing to see the patient(eg.review tests), obtaining and/or reviewing separately otained hiistory, ordering medications,tests, procedures, referring, communicating with other health housekeeper caregiver, indepentently interpreting results, counseling the patient and care coordination
[2024-06-16 14:32] LABS: Abs Immature Grans 0.05 10^3/uL (0.0-0.06); Absolute Basophil Count 0.07 10^3/uL (0.0-0.2); Absolute Eosinophil Count 0.16 10^3/uL (0.0-0.7); Absolute Lymphocyte Count 3.17 10^3/uL (1.2-3.4); Absolute Monocyte Count 0.74 10^3/uL (0.1-0.8); Absolute Neutrophil Count 6.59 10^3/uL (1.2-6.7); Basophils % 0.6 %; Eosinophils % 1.5 %; HCT 35.1 % (36.0-46.0); HGB 11.8 g/dL (11.2-15.7); Immature Grans % 0.5 %; Lymphocytes % 29.4 %; MCH 30.6 pg (27.0-33.0); MCHC 33.6 % (32.0-36.0); MCV 91 fL (80-95); MPV 10.2 fL (8.0-11.0); Monocytes % 6.9 %; Neutrophils % 61.1 %; Platelet Count 256 10^3/uL (130-400); RBC 3.86 10^6/uL (3.93-5.22); RDW 12.5 % (11.7-14.6); RDW-SD 41.2 fL; WBC 10.78 10^3/uL (4.4-10.8)
[2024-06-16 14:41] LABS: Anion Gap 9.7 mmol/L (3-11); BUN 26 mg/dL (7-18); CO2 25.3 mmol/L (21.0-32.0); CREATININE 1.7 mg/dL (0.55-1.02); Calcium 9.1 mg/dL (8.5-10.1); Chloride 104 mmol/L (98-107); Estimated GFR 31.47 (mL/min/1.73m2); Glucose 126 mg/dL (74-106); Potassium 3.4 mmol/L (3.5-5.1); Sodium 139 mmol/L (136-145)
--- NOTE | 2024-06-16 15:04 | PT.INTREAT ---
PT Notes Visit Reasons: Subacute right occipital CVA, hypertension Inpatient Physical Therapy Treatment [facility] Date: 06-16-2024 PRECAUTIONS: Left hemianopsia and left neglect, Fall Risk, Telemetry, SUBJECTIVE: Pt denies headache, and visual deficits. OBJECTIVE: Patient lying on right side when approached for PT. She was agreeable to participate. ? PAIN: Denies VITALS: monitored by Nursing Therapeutic Activities ([id number]): Direct one-on-one instruction in dynamic activities to improve functional performance. ?Provided skilled cues and instruction on performance and technique throughout. including turning and pacing to increase activity tolerance . ? BED MOBILITY: Independent TRANSFERS?: independent sit to stand and bed to/ from chair regardless of location ?? Ambulation: . 220 feet x 2, 300ft x 1 with sneakers on SBA verbal cues for direction and location of destination. ? Stand scanning tasks to increase awareness to left including tabletop tasks and object identification x 4 mins x 2 with sit rest between. Standing dynamic task retrieval by color purposeful items ( shoes, comb, drinking glass, marker)with supervision and cues for recall of the color . Pt able to locate familiar items without color as the identifying criteria. STAIRS:2 x 6 step and 3 x 4 step with 1 rail x 3 trials reciprocal pattern up and step to descending SBA. pt with impaired depth perception with change in step height. ? ASSESSMENT: Pt able to locate her sneakers and the bathroom without cues however increase time needed and several passes by the items prior to her finally able to locate them.?Jennifer able to attend to tasks and improvement in ability to scan to left on command without visual cue. She able to don/doff sneakers (located on her left side) in seated position this session without cue to perform on both feet. She has increased speed and slight anterior lean of trunk while ambulating with sneakers on this session. She demonstrates appropriate arm swing with increased speed of ambulation. . PLAN: Continued skilled PT for functional mobility retraining with visual compensations, balance retraining strengthening TREATMENT CODE/TIME:, 36468 [id number] for 2 unit/ [id number] DISCHARGE RECOMMENDATION: Acute Rehab Setting.
--- NOTE | 2024-06-16 18:36 | PDOC.CMPRO ---
Date of service: 06/16/24 Time of Service: 18:52 Care Management Progress Note Progress Note Text Progress Note Text: [facility] attempted to reach Donna to review admission information. CM reached Donna around 1630 and provided contact number for Dilia at [facility] . CM also reviewed VM received from Rudy and Katlyn Mccracken (spelling?) P#[phone], who had called requesting information. Donna is listed on the HIPPA from last June, Myriam are not. Discharge Potential Discharge Needs: Consult and PT Evaluation Anticipated Barriers to Discharge: Other (Coordination delay with family r/t lack of [facility]CA forms and correspondence for accepting facility with family member. ) Plan: Jennifer may transfer to [facility] for acute rehab, CM continues to support coordination. Anticipate Jennifer will return home with new orders for HH RN, PT, OT, ST, [employer]OVER and recommendation for outpatient Palliative follow up-vs-Acute Rehab (referrals sent to [facility] and [facility] for review). CM will continue to follow. SDOH(Care Management) Screening Will the Patient Participate in the Screening?: Unable to obtain
[2024-06-16] MEDS: Atorvastatin 40 MG TAB 80 MG PO (21:00)
[2024-06-17 03:25] VITALS: BP 156/55; PULSE 50; RESP 18; TEMP 36.9; O2SAT 98
[2024-06-17 05:39] LABS: Abs Immature Grans 0.02 10^3/uL (0.0-0.06); Absolute Basophil Count 0.05 10^3/uL (0.0-0.2); Absolute Eosinophil Count 0.24 10^3/uL (0.0-0.7); Absolute Monocyte Count 0.66 10^3/uL (0.1-0.8); Absolute Neutrophil Count 4.59 10^3/uL (1.2-6.7); Basophils % 0.6 %; Eosinophils % 2.7 %; HCT 29.8 % (36.0-46.0); HGB 10.4 g/dL (11.2-15.7); Immature Grans % 0.2 %; Lymphocytes % 37.2 %; MCHC 34.9 % (32.0-36.0); MCV 89 fL (80-95); MPV 10.5 fL (8.0-11.0); Monocytes % 7.4 %; Neutrophils % 51.9 %; Platelet Count 219 10^3/uL (130-400); RBC 3.36 10^6/uL (3.93-5.22); RDW 12.3 % (11.7-14.6); RDW-SD 39.8 fL; WBC 8.86 10^3/uL (4.4-10.8)
[2024-06-17 05:54] LABS: Anion Gap 11.3 mmol/L (3-11); BUN 23 mg/dL (7-18); CO2 20.7 mmol/L (21.0-32.0); CREATININE 1.5 mg/dL (0.55-1.02); Chloride 109 mmol/L (98-107); Estimated GFR 36.57 (mL/min/1.73m2); Glucose 107 mg/dL (74-106); Sodium 141 mmol/L (136-145)
[2024-06-17 05:55] LABS: Potassium 2.9 mmol/L (3.5-5.1)
[2024-06-17 06:19] LABS: Hemoglobin A1C 5.4 % (<5.7)
[2024-06-17] MEDS: POTASSIUM CHLORIDE 10 MEQ/100 ML BAG 100 MEQ IVINF ×2 (06:55→08:47)
[2024-06-17 07:38] VITALS: BP 143/61; PULSE 62; RESP 16; TEMP 36.4; O2SAT 98
[2024-06-17] MEDS: Losartan 25 MG TAB PO (08:26)
[2024-06-17] MEDS: Aspirin E.C. 81 MG TABEC PO (08:26)
[2024-06-17] MEDS: Metoprolol 12.5 MG TAB PO (08:26)
[2024-06-17] MEDS: Sertraline 25 MG TAB PO (08:26)
[2024-06-17] MEDS: Clopidogrel 75 MG TAB PO (08:26)
--- NOTE | 2024-06-17 09:14 | W.PM.PROGNOT ---
Date of Service Date of service: 06/17/24 Time of Service: 09:14 Assessment and Plan Assessment and plan (1) CVA (cerebral vascular accident): Start date: 06/13/24 Status: Chronic Assessment and plan: -presented with 3-day history of neurological symptoms over her left visual field and some problems with expression and intentional gaze. -Initial and repeat CT of the head showed right perietal lobe infarct with petechil hemorrhage -Loaded with aspirin Plavix as [place] [facility] [place] Continue plavix for 3 weeks, asa indefinitely -No anticoagulation or thrombolytic therapy was recommended and with very CTA revealing stenosis, neurosurgery was consulted and did not recommend any further interventions but continued medical care. -TTE without shunting or other acute findings; LVEF is 65% -MRI confirmed large right parietal occipital region subacute infarct Qualifiers: CVA mechanism: occlusion Precerebral and cerebral artery: middle cerebral artery Laterality of affected vessel: right Qualified Code(s): I63.511 - Cerebral infarction due to unspecified occlusion or stenosis of right middle cerebral artery (2) Dementia: Status: Chronic Assessment and plan: -appears to be vascular dementia with patient having previous history of CVA though there was only bilateral periventricular white matter disease on previous MRI 01/19/2024. Qualifiers: Dementia type: vascular dementia Dementia severity: moderate Dementia behavioral or psychological symptom: without behavioral, psychotic, or mood disturbance or anxiety Qualified Code(s): F01.B0 - Vascular dementia, moderate, without behavioral disturbance, psychotic disturbance, mood disturbance, and anxiety (3) HTN (hypertension): Status: Chronic Assessment and plan: Initially permissive hypertension with her acute stroke. Continue metoprolol low-dose. Qualifiers: Hypertension type: primary hypertension Qualified Code(s): I10 - Essential (primary) hypertension (4) Tobacco abuse: Status: Chronic Assessment and plan: Continue NRT (5) Chronic hyperglycemia: Status: Chronic Assessment and plan: Hemoglobin A1c pending Glucose 101-138 continue gluc Ac and HS with SSI (6) Hyperlipidemia: Status: Chronic Assessment and plan: continue increased dose of atorvastatin to 80 mg daily. Qualifiers: Hyperlipidemia type: mixed hyperlipidemia Qualified Code(s): E78.2 - Mixed hyperlipidemia (7) CKD (chronic kidney disease) stage 3, GFR 30-59 ml/min: Status: Chronic Assessment and plan: Cr 1.7 was 1.6 on admit BMP in AM Qualifiers: Chronic kidney disease stage 3 subtype: stage 3b (GFR 30-44) Qualified Code(s): N18.32 - Chronic kidney disease, stage 3b (8) Discharge planning issues: Status: Acute Assessment and plan: CM : referrals sent - spoke to [facility] in [place] Niece to be contacted re: decision making Discussed with Dr. Coelho (9) Hypokalemia: Status: Acute Assessment and plan: Supplementation ordered BMP in AM Subjective Subjective Patient reports: tolerating liquids well, tolerating a regular diet, voiding w/o difficulty and bowel movement; denies diarrhea, nausea, vomiting, shortness of breath or fever Exam Narrative Exam Narrative: patient in bed w/o acute distress, AOx3, regular heart rate and rhythm , lungs CTAB, abdomen soft, non-tender, non-distended, CN II-XII intact, left hemianopsia - patient with normal eye ROM Moves all 4 ext, yarn weight and strength tester/ strength 5/5 Objective Last Vital Signs Temp 36.4 C L 06/17/24 07:38 Pulse 62 06/17/24 07:38 Resp 16 06/17/24 07:38 BP 143/61 H 06/17/24 07:38 Pulse Ox 98 06/17/24 07:38 Laboratory Results - last 24 hr 06/16/24 06/17/24 14:25 05:33 WBC 10.78 8.86 RBC 3.86 L 3.36 L Hgb 11.8 10.4 L Hct 35.1 L 29.8 L MCV 91 89 MCH 30.6 31.0 MCHC 33.6 34.9 RDW 12.5 12.3 Plt Count 256 219 MPV 10.2 10.5 Immature Gran % 0.5 0.2 Neutrophils % 61.1 51.9 Lymphocytes % 29.4 37.2 Monocytes % 6.9 7.4 Eosinophils % 1.5 2.7 Basophils % 0.6 0.6 Nucleated RBC % 0.0 0.0 Absolute Neutrophils 6.59 4.59 Absolute Lymphocytes 3.17 3.30 Absolute Monocytes 0.74 0.66 Absolute Eosinophils 0.16 0.24 Absolute Basophils 0.07 0.05 Sodium 139 141 Potassium 3.4 L 2.9 L* Chloride 104 109 H Carbon Dioxide 25.3 20.7 L Anion Gap 9.7 11.3 H BUN 26 H 23 H Creatinine 1.7 H 1.5 H Est GFR (CKD-EPI 2020) 31.47 36.57 Glucose 126 H 107 H Hemoglobin A1c 5.4 Calcium 9.1 9.0
[2024-06-17] MEDS: Potassium Chloride 20 MEQ TABCR 40 MEQ PO ×2 (09:35→12:56)
--- NOTE | 2024-06-17 11:03 | PT.INTREAT ---
PT Notes Visit Reasons: Subacute right occipital CVA, hypertension Inpatient Physical Therapy Treatment [facility] Date: 06-17-2024 PRECAUTIONS: Left hemianopsia and left neglect, Fall Risk, Telemetry, IV infusing SUBJECTIVE: Pt denies headache, and visual deficits. OBJECTIVE: Patient sitting in chair brushing her teeth when approached for PT. She was agreeable to participate. ? PAIN: Denies VITALS: monitored by Nursing Therapeutic Activities ([id number]): Direct one-on-one instruction in dynamic activities to improve functional performance. ?Provided skilled cues and instruction on performance and technique throughout. including turning and pacing to increase activity tolerance . ? BED MOBILITY: Independent TRANSFERS?: independent sit to stand and bed to/ from chair regardless of location ?? Ambulation: . 220 feet x 2, 300ft x 1 with sneakers on SBA verbal cues for direction and location of destination. ? STAIRS:2 x 6 step and 3 x 4 step with 1 rail x 1 trials reciprocal pattern up and step to descending SBA. pt with impaired depth perception with change in step height. ? ASSESSMENT: Patient demonstrating increased activity tolerance. Patient continues to demonstrate need for visual compensation For objects located to her left and lower right quadrant. Patient's niece present at end of session stating patient will be going to acute rehab today or tomorrow. PLAN: Continued skilled PT for functional mobility retraining with visual compensations, balance retraining strengthening TREATMENT CODE/TIME:, [id number] for 2 unit/ [id number] DISCHARGE RECOMMENDATION: Acute Rehab Setting.
[2024-06-17 11:26] LABS: Anion Gap 10.5 mmol/L (3-11); BUN 21 mg/dL (7-18); CO2 21.5 mmol/L (21.0-32.0); CREATININE 1.5 mg/dL (0.55-1.02); Chloride 107 mmol/L (98-107); Estimated GFR 36.57 (mL/min/1.73m2); Glucose 116 mg/dL (74-106); Potassium 3.3 mmol/L (3.5-5.1); Sodium 139 mmol/L (136-145)
--- NOTE | 2024-06-17 11:28 | PDOC.CMPRO ---
Date of service: 06/17/24 Time of Service: 11:28 SDOH(Care Management) Screening Will the Patient Participate in the Screening?: Unable to obtain
[2024-06-17 11:29] VITALS: BP 167/66; PULSE 52; RESP 16; TEMP 36.7; O2SAT 99
--- NOTE | 2024-06-17 12:10 | W.PM.DS.N ---
Date of service: 06/17/24 Time of Service: 12:10 DS: Diagnosis Discharge Diagnosis (1) CVA (cerebral vascular accident): Status: Chronic (2) Dementia: Status: Chronic (3) HTN (hypertension): Status: Chronic (4) Tobacco abuse: Status: Chronic (5) Chronic hyperglycemia: Status: Chronic (6) Hyperlipidemia: Status: Chronic (7) CKD (chronic kidney disease) stage 3, GFR 30-59 ml/min: Status: Chronic (8) Discharge planning issues: Status: Acute (9) Hypokalemia: Status: Acute Discharge Plan Disposition Patient Disposition: [facility] Facility(SNF) Condition: Improving Discharge Details Reason For Visit: Subacute right occipital CVA, hypertension Admit Date/Time: 06/13/24 03:35 Admit Provider: Abelardo Benítez Attending Provider: Abelardo Benítez Primary Care Provider: Maximo Lainez Hospital Course Hospital Course: This 73-year-old female patient with a past medical history of CVA, CKD stage III, dementia presented to the ED at [facility] on 06/12/2024 for evaluation of altered mental status over the past 3 days prior to presentation; patient was less interactive,less able to communicate verbally and following commands. On arrival to the ED patient was noted to be hypertensive, afebrile and nonfocal neurologically. Workup in the ED was positive for aLarge area of acute infarct in the right occipital parietal region as per head CT. Within this area is ribbon like hyperdensity consistent with probable petechial hemorrhage at the level the sulci. Those findings were superimposed upon abundant bilateral periventricular white matter disease, as was evident on prior MRI study of 01/19/2024. CTA head and neck showing stenosis of right cavernous internal carotid artery as well as stenosis of vertebral system and MCA, neurology team recommended vascular surgical consult. Dr. Goran Quintanilla vascular surgery, and she did not recommend any surgical intervention, but recommended continued medical management. The patient was admitted to [facility] as per hospitalist consult for evaluation and management of acute infarct in the right occipital parietal region. Treatment was initiated with loading dose of Plavix and continuation of daily dose of Plavix 75 mg for 3 weeks. Aspirin was initiated with recommendation for lifelong treatment. Atorvastatin dose was increased from 20 mg a day to 80 mg a day. Permissive hypertension was also initially recommended. MRI demonstrated a large right parietal occipital region subacute infarct, age-related cerebral atrophy and chronic microvascular ischemic disease. Echocardiogram with bubble : completed with the following conclusions: Borderline concentric left ventricular hypertrophy. Ejection fraction is 65%. Wall motion is normal Normal right ventricular size and function Both atria are normal in size No intracardiac shunting is identified with injection of agitated saline There are no structural valvular abnormalities Mild mitral regurgitation Estimated right ventricular systolic pressure is 29 mmHg During the stay home blood pressure medicine were adjusted after period of permissive hypertension. The patient had a history of hyperglycemia with a last A1c at 5.4;blood sugars was a control to diet/lifestyle management.. Physical therapy recommendation was made for acute rehabilitation. The patient was found to have left hemianopsia, with recommendation for subacute rehab to maximize rehab potential during the acute phase of recovery made by speech pathology. Today on 06/17/2024 the patient will be discharged. Potassium level was 3.3 and 40 mEq of oral potassium was administered with recommendation for follow-up basic metabolic panel outpatient. Creatinine was back to baseline around 1.5 with a GFR of 36. Plavix was initiated on 06/12/2024 and should be stopped after 3 weeks of treatment. Discussed with Dr. Coelho Home Meds and New Rx's Prescriptions: New atorvastatin 40 mg Tablet 80 mg PO QPM Qty: 60 0RF clopidogrel 75 mg Tablet 75 mg PO DAILY Qty: 30 0RF docusate sodium [Colace] 100 mg Capsule 100 mg PO TID PRN PRNQty: 90 0RF metoprolol tartrate 25 mg Tablet 12.5 mg PO BID Qty: 30 0RF nicotine 7 mg/24 hr Patch 24 Hour 7 mg transdermal DAILY PRN PRNQty: 14 0RF polyethylene glycol 3350 17 gram Powder In Packet 17 g PO DAILY PRN PRN (Reason: Constipation) Qty: 30 0RF sertraline 25 mg Tablet 25 mg PO DAILY Qty: 30 0RF losartan 25 mg Tablet 25 mg PO DAILY Qty: 30 0RF Continued sertraline 25 mg tablet 25 mg PO DAILY Patient Comments: TAKE ONE TABLET BY MOUTH EVERY DAY aspirin 81 mg tablet,delayed release (DR/EC) 81 mg PO DAILY Patient Comments: TAKE 1 TABLET BY MOUTH EVERY DAY albuterol sulfate 90 mcg/actuation HFA aerosol inhaler 2 inh INHALATION Q4H PRN Patient Comments: INHALE 2 PUFFS BY MOUTH EVERY 4 HOURS NEEDED Discontinued chlorhexidine gluconate 0.12 % mouthwash 15 ml buccal BID Qty: 1893 0RF Rx Instructions: swish and spit; do not swallow atorvastatin 20 mg tablet 20 mg PO QPM Patient Comments: TAKE ONE TABLET BY MOUTH EVERY EVENING TO LOWER CHOLESTEROL No Action metoprolol tartrate 25 mg tablet 25 mg PO DAILY Patient Comments: TAKE ONE TABLET BY MOUTH TWICE A DAY Discharge Instructions Activity:: Activity as Tolerated Equipment/Supplies:: Walker Diet:: heart healthy-renal DS: Summary Time Spent with Patient providing and/or coordinating discharge services: Greater than 30 minutes Status at Discharge Functional status at discharge: uses cane/walker Overall status at discharge: patient is back to baseline Mental Status: mental status grossly normal Speech and Movement: speech and movement normal Mood: congruent mood Affect: normal affect Quality:SDOH Health Related Social Needs: No Data to Display Exam Narrative Exam Narrative: patient in bed w/o acute distress, AOx3, regular heart rate and rhythm , lungs CTAB, abdomen soft, non-tender, non-distended, CN II-XII intact, left hemianopsia persistent Moves all 4 ext, machine heel seat fitter/ strength 5/5 Psych Mental Status: mental status grossly normal Speech and Movement: speech and movement normal Mood: congruent mood Affect: normal affect DS: Data Vitals/I&O Vitals and I&O: Vital Signs Temperature 36.7 C 06/17/24 11:29 Temperature Source Temporal Artery Scan 06/17/24 11:29 Pulse 52 L 06/17/24 11:29 Pulse Rhythm Regular 06/13/24 04:53 Respiratory Rate 16 06/17/24 11:29 Respiratory Effort Normal 06/13/24 04:53 Respiratory Depth Normal 06/13/24 04:53 Respiratory Pattern Normal 06/13/24 04:53 Blood Pressure 167/66 H 06/17/24 11:29 Pulse Oximetry 99 06/17/24 11:29 Oxygen Delivery Method Room Air 06/17/24 11:29 Oxygen Flow Rate 0 06/17/24 11:29 Pain Level 0 06/17/24 11:29 Comment RN Notified 06/16/24 23:17 Intake & Output 06/16/24 06/17/24 06/17/24 23:59 11:59 23:59 Intake Total 240 / 600 110 / 110 Output Total 50 / 50 Balance 240 / 600 60 / 60 Weight 44.4 kg Intake: IV 110 / 110 Oral 240 / 600 Output: Urine 50 / 50 Other: Urine Color Yellow Yellow Urine Appearance Clear Urine Odor None Comment per pt per pt Stool Size Large Stool Characteristics Liquid Brown Voiding Methods Toilet Bedside Commode Data Completed and Pending Labs on day of discharge: Labs from last 24 hours 06/17/24 06/17/24 06/16/24 11:00 05:33 14:25 WBC 8.86 10.78 RBC 3.36 L 3.86 L Hgb 10.4 L 11.8 Hct 29.8 L 35.1 L MCV 89 91 MCH 31.0 30.6 MCHC 34.9 33.6 RDW 12.3 12.5 Plt Count 219 256 MPV 10.5 10.2 Immature Gran % 0.2 0.5 Neutrophils % 51.9 61.1 Lymphocytes % 37.2 29.4 Monocytes % 7.4 6.9 Eosinophils % 2.7 1.5 Basophils % 0.6 0.6 Nucleated RBC % 0.0 0.0 Absolute Neutrophils 4.59 6.59 Absolute Lymphocytes 3.30 3.17 Absolute Monocytes 0.66 0.74 Absolute Eosinophils 0.24 0.16 Absolute Basophils 0.05 0.07 Sodium 139 141 139 Potassium 3.3 L 2.9 L* 3.4 L Chloride 107 109 H 104 Carbon Dioxide 21.5 20.7 L 25.3 Anion Gap 10.5 11.3 H 9.7 BUN 21 H 23 H 26 H Creatinine 1.5 H 1.5 H 1.7 H Est GFR (CKD-EPI 2020) 36.57 36.57 31.47 Glucose 116 H 107 H 126 H Hemoglobin A1c 5.4 Calcium 9.0 9.0 9.1 PFSH All Active Problems (Updated 06/17/24 @ 09:14 by Hoda Pink APRN) Hypokalemia (Acute) Discharge planning issues (Acute) Hyperlipidemia (Chronic) Chronic hyperglycemia (Chronic) CKD (chronic kidney disease) stage 3, GFR 30-59 ml/min (Chronic) Tobacco abuse (Chronic) HTN (hypertension) (Chronic) Dementia (Chronic) CVA (cerebral vascular accident) (Chronic) Social History Smoking/Tobacco Use Status: Current every day Tobacco Type: cigarettes Smoking risk assessment performed?: Yes Alcohol Intake: current Drug use: Never Substance use type: does not use Housing: apartment Do you feel safe at home: Yes Do you feel safe in your relationship?: Yes Time Spent with Patient Time Spent with Patient: 70-84 minutes4 Time was spent: preparing to see the patient(eg.review tests), obtaining and/or reviewing separately otained hiistory, ordering medications,tests, procedures, referring, communicating with other health in home caregiver, indepentently interpreting results, counseling the patient and care coordination
--- NOTE | 2024-06-18 09:24 | CMDISCH_ITS ---
Date of service: 06/17/24 Time of Service: 12:23 LACE Index Scoring Tool Questions: Length of Stay (in days): 4 - 6 Was the patient admitted via the E.D.?: Yes Comorbidities: Cerebrovascular Disease and Dementia E.D. Visits: 0 Answers: Total Score: 12 Risk of Readmission: High Risk Care Management Discharge Plan Reason for Hospitalization: Sub-acute right occipital CVA, hypertension Discharge Plan: Jennifer will transfer to [facility] for post stroke, acute rehab via EMS. CM reviewed discharge plan with Jennifer and her niece Donna, both agreeable to short term acute rehab transfer. Donna has been fully supportive and engaged with Jennifer's discharge planning, and supporting her for some time to make decisions. She is her primary caregiver within the home, and listed on the HIPPA-she has served as point person for information sharing with the family. Patient/Family Education Needs: Review discharge instructions, discuss Ask Me Three. Services Needed at Discharge: Retirement Facility ([facility]: Acute rehab) and Transportation (EMS) SDOH Health Related Social Needs: No Data to Display
== END 2024-06-17 13:15 | disposition skilled nursing facility (03) | DRG 64 ==
LOC: ER 06-13 03:58 → MS 06-13 04:52
PROVIDERS: Emergency Medicine; Nurse Practitioner Acute Care; Admitting Provider Family Medicine; Emergency Provider Student in an Organized Health Care Education/Training Program; PCP Student in an Organized Health Care Education/Training Program; Visit Provider Family Medicine
DX: I63.511 Cerebral infarction due to unspecified occlusion or stenosis of right middle cerebral artery (principal); I61.8 Other nontraumatic intracerebral hemorrhage; F01.B0 Vascular dementia, moderate, without behavioral disturbance, psychotic disturbance, mood disturbance, and anxiety; F17.210 Nicotine dependence, cigarettes, uncomplicated; E78.2 Mixed hyperlipidemia; R73.9 Hyperglycemia, unspecified; N18.32 Chronic kidney disease, stage 3b; E87.6 Hypokalemia; G47.00 Insomnia, unspecified; Z86.73 Personal history of transient ischemic attack (TIA), and cerebral infarction without residual deficits; I25.10 Atherosclerotic heart disease of native coronary artery without angina pectoris; F32.A Depression, unspecified; Z79.899 Other long term (current) drug therapy; R29.704 NIHSS score 4; Z79.82 Long term (current) use of aspirin; R48.2 Apraxia; R41.89 Other symptoms and signs involving cognitive functions and awareness; I12.9 Hypertensive chronic kidney disease with stage 1 through stage 4 chronic kidney disease, or unspecified chronic kidney disease; H53.462 Homonymous bilateral field defects, left side
CPT/HCPCS: 00123; 36415; 70496; 70498; 80048; 80053; 80307; 82550; 82805; 83690; 85027; 87637; 92526; 93005; 93306; 96360; 97110; 97116; 97161; 97530; 99285; 70450; 70551; 71046; 72170; 80320; 80329; 81003; 81015; 82140; 83036; 83735; 84443; 85025; 85610; 85730; 92507; 92523; 93010; 99223; 99233; 99239; J1815; J3480; J3490

== ENCOUNTER 2024-07-02 15:41 | Outpatient (REF) | payer MEDICARE, MEDICAID, SELFPAY ==
--- OUTSIDE RECORDS SUMMARY | 2024-07-02 15:42 | XMS_ITS | Summary of Care ---
Author Organization [facility] Address [address] [place] [address]- Care Team Providers Care Brand Representative Name Role Phone Chanel Lainez PA-C Primary Care Physicia n Unavailable Encounter 06/17/24 - 06/30/24 [facility] [address] [place] [address]- [phone] Discharge Disposition: 06H Home with Home Health Care Attending Physician: Jerman RODRIGUEZ, Ancelmo Feliz Admitting Physician: Jerman RODRIGUEZ, Ancelmo Feliz Referring Physician: Rohith Benítez JR., DO Allergies, Adverse Reactions, Alerts No Known Medication Allergies Medications albuterol CFC free 90 mcg/inh inhalation aerosol 2 puff, Aerosol, INH, q4hr RT PRN, 0 Refill(s), Wheezing Start Date: 06/17/24 Status: Ordered amLODIPine 5 mg oral tablet 5 mg = 1 tab, Tab, Oral, q12hr, 60 tab, 0 Refill(s), Route to Pharmacy Electronically, [facility] #[id number], 147, 06/20/24 12:37:00 EDT, Height/Length Dosing, cm, 45.2, 06/20/24 12:37:00 EDT, Weight Dosing, kg Start Date: 06/21/24 Status: Ordered aspirin 81 mg oral delayed release tablet 81 mg, = 1 tab, Oral, Daily, 30 tab, 0 Refill(s) Start Date: 06/17/24 Status: Ordered atorvastatin 80 mg oral tablet 80 mg = 1 tab, Tab, Oral, QHS, 30 tab, 0 Refill(s), Route to Pharmacy Electronically, [facility] #[id number], 147, 06/20/24 12:37:00 EDT, Height/Length Dosing, cm, 45.2, 06/20/24 12:37:00 EDT, Weight Dosing, kg Start Date: 06/21/24 Status: Ordered clopidogrel 75 mg oral tablet 75 mg, = 1 tab, Tab, Oral, Daily, 30 tab, 0 Refill(s), x 3 weeks (06/12-07/03), Route to Pharmacy Electronically, [facility] #[id number], 147, 06/20/24 12:37:00 EDT, Height/Length Dosing, cm, 45.2, 06/20/24 12:37:00 EDT, Weight Dosing, kg Start Date: 06/21/24 Status: Ordered losartan 50 mg oral tablet 50 mg = 1 tab, Tab, Oral, q12hr, 30 tab, 0 Refill(s), Route to Pharmacy Electronically, [facility] #[id number], 147, 06/25/24 14:14:00 EDT, Height/Length Dosing, cm, 43.9, 06/25/24 14:14:00 EDT,Weight Dosing, kg Start Date: 06/29/24 Status: Ordered metoprolol tartrate 25 mg oral tablet 12.5 mg = 0.5 tab, Tab, Oral, BID, 30 tab, 0 Refill(s), Route to Pharmacy Electronically, [facility] #[id number], 147, 06/20/24 12:37:00 EDT, Height/Length Dosing, cm, 45.2, 06/20/24 12:37:00 EDT, Weight Dosing, kg Start Date: 06/21/24 Status: Ordered nicotine 7 mg/24 hr transdermal film, extended release 1 patch, Film, Transdermal, Daily PRN, 30 patch, 0 Refill(s), Smoking cessation, Route to Pharmacy Electronically, [facility] #[id number], 147, 06/20/24 12:37:00 EDT, Height/Length Dosing, cm, 45.2, 06/20/24 12:37:00 EDT, Weight Dosing, kg Start Date: 06/21/24 Status: Ordered sertraline 25 mg oral tablet 25 mg = 1 tab, Tab, Oral, Daily, 30 tab, 0 Refill(s) Start Date: 06/17/24 Status: Ordered sodium bicarbonate 325 mg oral tablet 650 mg = 2 tab, Tab, Oral, Daily, 30 tab, 0 Refill(s), Route to Pharmacy Electronically, [facility] #[id number], 767, 06/25/24 14:14:00 EDT, Height/Length Dosing, cm, 43.9, 06/25/24 14:14:00 EDT, Weight Dosing, kg Start Date: 06/30/24 Status: Ordered Problem List Condition Confirmation Course Effective Dates Status H ealth Status Informant At risk of venous thromboembolus 1 Confirmed 06/17/24 Active Cerebrovascular disease Confirmed Active Chronic diabetic renal insufficiency stage III Confirmed Active Hyperlipidemia Confirmed Active Hypertension Confirmed Active Microvascular dementia Confirmed Active Tobacco use disorder Confirmed Active Type 2 diabetes Confirmed Active 1Problem added by Discern Expert Rule: EBN_VTERISKPROB_3 Results Laboratory List Name Date Glucose, POC 06/30/24 Glucose, POC 06/28/24 Glucose, POC 06/28/24 Most recent to oldest [Reference Range]: 1 2 3 Creatinine Level 1.39 mg/dL *HI* (06/29/24 7:15 AM) 1.54 mg/dL *HI* (06/28/24 6:24 AM) 1.71 mg/dL *HI* (06/26/24 5:24 AM) eGFR CKD-EPI - CRD [>=60] 40 *LOW* (06/29/24 7:15 AM) 35 *LOW* (06/28/24 6:24 AM) 31 *LOW* (06/26/24 5:24 AM) WBC Instrument - CRD [3.98-10.04 x10^3/mcL] 9.06 x10^3/mcL (06/29/24 7:15 AM) 12.08 x10^3/mcL *HI* (06/25/24 6:01 AM) 9.06 x10^3/mcL (06/22/24 6:20 AM) RDW-SD - CRD 43.0 (06/29/24 7:15 AM) 41.9 (06/25/24 6:01 AM) 42.1 (06/22/24 6:20 AM) Estimated Creatinine Clearance 23.11 mL/min 1 (06/29/24 7:15 AM) 20.86 mL/min 2 (06/28/24 6:24 AM) 18.78 mL/min 3 (06/26/24 5:24 AM) Glucose POC RALS [70-180 mg/dL] 110 mg/dL (06/30/24 6:51 AM) 118 mg/dL (06/28/24 4:15 PM) 124 mg/dL (06/28/24 12:09 PM) WBC - CRD [3.98-10.04 x10^3/mcL] 9.06 x10^3/mcL (06/29/24 7:15 AM) 12.08 x10^3/mcL *HI* (06/25/24 6:01 AM) 9.06 x10^3/mcL (06/22/24 6:20 AM) RBC - CRD [3.93-5.22 x10^6/mcL] 3.44 x10^6/mcL *LOW* (06/29/24 7:15 AM) 3.49 x10^6/mcL *LOW* (06/25/24 6:01 AM) 3.36 x10^6/mcL *LOW* (06/22/24 6:20 AM) MCV - CRD [82.0-100.8 fL] 91.9 fL (06/29/24 7:15 AM) 89.1 fL (06/25/24 6:01 AM) 92.0 fL (06/22/24 6:20 AM) MCH - CRD [25.6-32.2 pg] 30.5 pg (06/29/24 7:15 AM) 30.9 pg (06/25/24 6:01 AM) 30.7 pg (06/22/24 6:20 AM) MCHC - CRD [31.0-34.6 G/DL] 33.2 G/DL (06/29/24 7:15 AM) 34.7 G/DL *HI* (06/25/24 6:01 AM) 33.3 G/DL (06/22/24 6:20 AM) RDW - CRD [11.7-14.4 %] 13.1 % (06/29/24 7:15 AM) 12.8 % (06/25/24 6:01 AM) 12.6 % (06/22/24 6:20 AM) Platelets - CRD [139-379 x10^3/mcL] 266 x10^3/mcL (06/29/24 7:15 AM) 301 x10^3/mcL (06/25/24 6:01 AM) 280 x10^3/mcL (06/22/24 6:20 AM) NRBC - CRD 0.0 (06/29/24 7:15 AM) 0.0 (06/25/24 6:01 AM) 0.0 (06/22/24 6:20 AM) Sodium - CRD [136-143 mmol/L] 146 mmol/L *HI* (06/29/24 7:15 AM) 146 mmol/L *HI* (06/28/24 6:24 AM) 143 mmol/L (06/26/24 5:24 AM) Potassium - CRD [3.5-5.1 mmol/L] 4.0 mmol/L (06/29/24 7:15 AM) 3.7 mmol/L (06/28/24 6:24 AM) 3.2 mmol/L *LOW* (06/26/24 5:24 AM) Chloride - CRD [101-111 mmol/L] 121 mmol/L 4 *CRIT* (06/29/24 7:15 AM) 122 mmol/L *CRIT* (06/28/24 6:24 AM) 118 mmol/L *HI* (06/26/24 5:24 AM) Carbon Dioxide - CRD [21-32 mmol/L] 17 mmol/L *LOW* (06/29/24 7:15 AM) 19 mmol/L *LOW* (06/28/24 6:24 AM) 16 mmol/L *LOW* (06/26/24 5:24 AM) BUN - CRD [6-26 mg/dL] 31 mg/dL *HI* (06/29/24 7:15 AM) 38 mg/dL *HI* (06/28/24 6:24 AM) 38 mg/dL *HI* (06/26/24 5:24 AM) BUN/Creat Ratio - CRD 22.3 (06/29/24 7:15 AM) 24.7 (06/28/24 6:24 AM) 22.2 (06/26/24 5:24 AM) Creatinine, Enzymatic - CRD [0.50-1.07 mg/dL] 1.39 mg/dL *HI* (06/29/24 7:15 AM) 1.54 mg/dL *HI* (06/28/24:24 AM) 1.71 mg/dL *HI* (06/26/24 5:24 AM) Glucose - CRD [70-99 mg/dL] 108 mg/dL 5 *HI* (06/29/24 7:15 AM) 120 mg/dL 6 *HI* (06/28/24 6:24 AM) 115 mg/dL 7 *HI* (06/26/24 5:24 AM) Calcium - CRD [8.3-10.1 mg/dL] 9.2 mg/dL (06/29/24 7:15 AM) 9.4 mg/dL (06/28/24:24 AM) 9.4 mg/dL (06/26/24 5:24 AM) Alkaline Phosphatase - CRD [45-117 units/L] 77 units/L (06/29/24 7:15 AM) 82 units/L (06/25/24 6:01 AM) 82 units/L (06/22/24 6:20 AM) ALT - CRD [12-78 units/L] 23 units/L (06/29/24 7:15 AM) 24 units/L (06/25/24 6:01 AM) 18 units/L (06/22/24 6:20 AM) AST - CRD [5-32 units/L] 18 units/L (06/29/24 7:15 AM) 23 units/L (06/25/24 6:01 AM) 18 units/L (06/22/24:20 AM) Bilirubin, Total - CRD [0.2-1.0 mg/dL] 0.3 mg/dL (06/29/24 7:15 AM) 0.4 mg/dL (06/25/24 6:01 AM) 0.3 mg/dL (06/22/24:20 AM) Total Protein - CRD [6.5-8.4 G/DL] 6.0 G/DL *LOW* (06/29/24 7:15 AM) 6.3 G/DL *LOW* (06/25/24 6:01 AM) 6.2 G/DL *LOW* (06/22/24 6:20 AM) Albumin - CRD [3.4-4.9 G/DL] 3.5 G/DL (06/29/24 7:15 AM) 3.4 G/DL (06/25/24 6:01 AM) 3.3 G/DL *LOW* (06/22/24 6:20 AM) Globulin - CRD [2.7-4.7 G/DL] 2.5 G/DL *LOW* (06/29/24 7:15 AM) 2.9 G/DL (06/25/24 6:01 AM) 2.9 G/DL (06/22/24 6:20 AM) Albumin/Globulin Ratio - CRD [0.9-2.3] 1.4 (06/29/24 7:15 AM) 1.2 (06/25/24 6:01 AM) 1.1 (06/22/24 6:20 AM) Anion Gap - CRD [2.0-11.0] 8.0 (06/29/24 7:15 AM) 5.0 (06/28/24 6:24 AM) 9.0 (06/26/24 5:24 AM) Hematocrit - CRD [34.1-44.9 %] 31.6 % *LOW* (06/29/24 7:15 AM) 31.1 % *LOW* (06/25/24 6:01 AM) 30.9 % *LOW* (06/22/24 6:20 AM) Hemoglobin - CRD [11.2-15.7 G/DL] 10.5 G/DL *LOW* (06/29/24 7:15 AM) 10.8 G/DL *LOW* (06/25/24 6:01 AM) 10.3 G/DL *LOW* (06/22/24 6:20 AM) Magnesium - CRD [1.6-2.6 mg/dL] 2.1 mg/dL (06/25/24 6:01 AM) Auto Neutrophil - CRD 52.3 % (06/29/24 7:15 AM) 52.1 % (06/25/24 6:01 AM) 46.4 % (06/22/24 6:20 AM) Auto Lymphocyte - CRD 34.0 % (06/29/24 7:15 AM) 34.9 % (06/25/24 6:01 AM) 38.0 % (06/22/24 6:20 AM) Auto Monocyte - CRD 8.4 % (06/29/24 7:15 AM) 8.2 % (06/25/24 6:01 AM) 10.0 % (06/22/24 6:20 AM) Auto Eos - CRD 4.2 % (06/29/24 7:15 AM) 3.8 % (06/25/24 6:01 AM) 4.4 % (06/22/24 6:20 AM) Auto Basophil - CRD 0.8 % (06/29/24 7:15 AM) 0.6 % (06/25/24 6:01 AM) 0.8 % (06/22/24 6:20 AM) Imm Granulocyte - CRD 0.3 % (06/29/24 7:15 AM) 0.4 % (06/25/24 6:01 AM) 0.4 % (06/22/24 6:20 AM) Abs Imm Granulocyte - CRD [<=0.05 x10^3/mcL] 0.03 x10^3/mcL (06/29/24 7:15 AM) 0.05 x10^3/mcL (06/25/24 6:01 AM) 0.04 x10^3/mcL (06/22/24 6:20 AM) Abs Lymphocyte - CRD [1.18-3.74 x10^3/mcL] 3.08 x10^3/mcL (06/29/24 7:15 AM) 4.21 x10^3/mcL *HI* (06/25/24 6:01 AM) 3.44 x10^3/mcL (06/22/24 6:20 AM) Abs Monocyte - CRD [0.20-0.76 x10^3/mcL] 0.76 x10^3/mcL (06/29/24 7:15 AM) 0.99 x10^3/mcL *HI* (06/25/24 6:01 AM) 0.91 x10^3/mcL *HI* (06/22/24 6:20 AM) Abs Eosinophil - CRD [0.04-0.36 x10^3/mcL] 0.38 x10^3/mcL *HI* (06/29/24 7:15 AM) 0.46 x10^3/mcL *HI* (06/25/24 6:01 AM) 0.40 x10^3/mcL *HI* (06/22/24 6:20 AM) Abs Basophil - CRD [<=0.08 x10^3/mcL] 0.07 x10^3/mcL (06/29/24 7:15 AM) 0.07 x10^3/mcL (06/25/24 6:01 AM) 0.07 x10^3/mcL (06/22/24 6:20 AM) Absolute NRBC - CRD [<=0.01 x10^3/mcL] 0.00 x10^3/mcL (06/29/24 7:15 AM) 0.00 x10^3/mcL (06/25/24 6:01 AM) 0.00 x10^3/mcL (06/22/24 6:20 AM) MPV - CRD [8.97-11.96 fL] 10.90 fL (06/29/24 7:15 AM) 10.80 fL (06/25/24 6:01 AM) 11.20 fL (06/22/24 6:20 AM) Abs Neut - CRD [1.56-6.13 x10^3/mcL] 4.74 x10^3/mcL (06/29/24 7:15 AM) 6.30 x10^3/mcL *HI* (06/25/24 6:01 AM) 4.20 x10^3/mcL (06/22/24 6:20 AM) 1Result Comment: Calculated using method: Cockcroft-Gault (default) Calculated using Formula : 0.85*(140-ageInYears)*IBW/(72*scrInMGperDL) Age: 73 (08648250969.0) Serum Creatinine: 1.39 mg/dL (83689990142.0) Height: 147 cm (26107649629.0) Weight: 43.9 kg (IBW = 40.610 kg) 2Result Comment: Calculated using method: Cockcroft-Gault (default) Calculated using Formula : 0.85*(140-ageInYears)*IBW/(72*scrInMGperDL) Age: 73 (83124552702.0) Serum Creatinine: 1.54 mg/dL (05701496853.0) Height: 147 cm (17662493719.0) Weight: 43.9 kg (IBW = 40.610 kg) 3Result Comment: Calculated using method: Cockcroft-Gault (default) Calculated using Formula : 0.85*(140-ageInYears)*IBW/(72*scrInMGperDL) Age: 73 (26216012862.0) Serum Creatinine: 1.71 mg/dL (33374387344.0) Height: 147 cm (80602848455.0) Weight: 43.9 kg (IBW = 40.610 kg) 4Result Comment: Results repeated 5Result Comment: Impairment: Fasting glucose 100-125 mg/dL Diabetes Mellitus: Fasting glucose >=126 mg/dL Random glucose >=200 mg/dL 6Result Comment: Impairment: Fasting glucose 100-125 mg/dL Diabetes Mellitus: Fasting glucose >=126 mg/dL Random glucose >=200 mg/dL 7Result Comment: Impairment: Fasting glucose 100-125 mg/dL Diabetes Mellitus: Fasting glucose >=126 mg/dL Random glucose >=200 mg/dL Vital Signs Most recent to oldest [Reference Range]: 1 2 3 Temperature Oral F [96.4-99.1 DegF] 98.5 DegF (06/30/24 7:30 AM) 97.8 DegF (06/29/24 7:55 PM) 97.9 DegF (06/29/24 5:39 PM) Apical Heart Rate [60-100 bpm] 80 bpm (06/17/24 3:44 PM) Peripheral Pulse Rate [60-100 bpm] 49 bpm *LOW* (06/30/24 7:36 AM) 53 bpm *LOW* (06/30/24 7:32 AM) 66 bpm (06/29/24 7:55 PM) Respiratory Rate [14-20 br/min] 16 br/min (06/30/24 7:31 AM) 17 br/min (06/28/24 7:04 PM) 18 br/min (06/28/24 3:02 PM) Blood Pressure [90-140/60-90 mmHg] 102/53mmHg (06/30/24 7:32 AM) 119/65mmHg (06/29/24 7:54 PM) Systolic Blood Pressure [90-140 mmHg] 157 mmHg *HI* (06/29/24 5:39 PM) Diastolic Blood Pressure [60-90 mmHg] 69 mmHg (06/29/24 5:39 PM) Mean Arterial Pressure, Cuff 69 mmHg (06/30/24 7:32 AM) 83 mmHg (06/29/24 7:54 PM) 98 mmHg (06/29/24 5:39 PM) Extremity used to obtain blood pressure Left Arm (06/24/24 8:32 PM) Right Arm (06/19/24 8:58 PM) Right Arm (06/18/24 9:25 PM) Cuff Size. Small (06/24/24 8:32 PM) Medium (06/17/24 7:49 PM) Temperature Oral 36.9 DegC 1 (06/30/24 7:30 AM) 36.6 DegC 2 (06/29/24 7:55 PM) 36.6 DegC 3 (06/29/24 5:39 PM) 1Result Comment: Charted by SYSTEM secondary to charting of Temperature Oral F on a Vitals Monitor. Rule: VITALSLINK_CALCULATIONS_2 2Result Comment: Charted by SYSTEM secondary to charting of Temperature Oral F on a Vitals Monitor. Rule: VITALSLINK_CALCULATIONS_2 3Result Comment: Charted by SYSTEM secondary to charting of Temperature Oral F on a Vitals Monitor. Rule: VITALSLINK_CALCULATIONS_2 Patient Care team information Personnel Name: Fatou PATTERSON, Chanel Foy
--- OUTSIDE RECORDS SUMMARY | 2024-07-02 15:43 | XMS_ITS | Continuity of Care Document ---
Author Organization [place] [facility], [facility] Address [address] [place] [address] [address] [place] [address] Assessment No assessment recorded. Plan of Treatment Reminders Order Date Submit Date Provider Last Modified By Organization Details Last Modified Time Details Appointments Follow Up 30 2023 08:30A M Eduardo Fatou Not available Not available Not available Annual Wellness Exam 40 2024 02:30P M Eduardo Fatou Not available Not available Not available Lab culture, urine + sensitivi ty 2023 024 [facility] (Registration ), [address] [place] [address] [place], [address], 05/17/2024 08:14:58 microscop ic method, urine 2023 024 [facility] (Registration ), [address] [place] [address] [place], [address], 05/15/2024 08:48:21 urinalysi s, dipstick 2023 024 [email or web address] [facility], [address] [place] [address], [address], [place], [address], 05/14/2024 20:40:44 Referral None recorded. Procedures None recorded. Surgeries None recorded. Imaging None recorded. Medication Orders cefuroxim e axetil 250 mg tablet 2023 024 [email or web address] [facility], [address] [place], [address], 07/01/2024 11:35:09 cefuroxim e axetil 250 mg tablet 2023 024 [email or web address] Not available 07/01/2024 11:35:09 Patient TargetsNo targets recorded. Patient Instructions Encounter Date Encounter Id Patient Instructions Last Modified By Organization Details Last Modified Time 05/14/2024 [id number] 1. I am concerne d that her symptoms may be related to a urinary tract infection thus I have gone ahead and given her her first tablet of antibiotic tonight and the remaining doses were sent to the [facility] in [place]. She will take this medication morning and evening for total of 7 days. 2. I do expect symptoms should begin to improve. If they are not improving or she is worsening and you develop other concerning symptoms take her to the emergency department. 3. Urine culture results will be back on Friday but we will be closed. You should expect to hear from us on Friday to go over results. [email or web address] Not available 05/14/2024 20:58:45 Reason for Referral None Reported. Results Created Date Observation Date Name Description Value Unit Range Abnormal Flag Note LastModifiedBy Organization Detail LastModifiedTime 05/14/20 24 05/14/2024 urina lysis , dipst ick Leukocytes Trace Not Available [address], [address], 05/14/2024 20:24:45 05/14/20 24 05/14/2024 urina lysis , dipst ick Nitrite negati ve Not Available [address], [address], 05/14/2024 20:24:45 05/14/20 24 05/14/2024 urina lysis , dipst ick Urobilinogen .2 Not Available [address], [address], 05/14/2024 20:24:45 05/14/20 24 05/14/2024 urina lysis , dipst ick Protein 100 Not Available [address], [place], [address], 05/14/2024 20:24:45 05/14/20 24 05/14/2024 urina lysis , dipst ick pH 5.0 Not Available [address], [place], [address], 05/14/2024 20:24:45 05/14/20 24 05/14/2024 urina lysis , dipst ick Blood Negati ve Not Available [address], [place], [address], 05/14/2024 20:24:45 05/14/20 24 05/14/2024 urina lysis , dipst ick Specific [place] 1.015 Not Available [address], [place], [address], 05/14/2024 20:24:45 05/14/20 24 05/14/2024 urina lysis , dipst ick Ketone Trace Not Available [address], [place], [address], 05/14/2024 20:24:45 05/14/20 24 05/14/2024 urina lysis , dipst ick Bilirubin Small Not Available [address], [place], [address], 05/14/2024 20:24:45 05/14/20 24 05/14/2024 urina lysis , dipst ick Glucose Negati ve Not Available [address], [place], [address], 05/14/2024 20:24:45 05/14/20 24 05/14/2024 urina lysis , dipst ick Appearance Clear Not Available [facility] - [address], [place], [address], 05/14/2024 20:24:45 05/14/20 24 05/14/2024 urina lysis , dipst ick Color Dark Yellow Not Available [facility] - [address], [place], [address], 05/14/2024 20:24:45 06/12/20 24 06/12/2024 x-ray imagi ng ofelia t Obdulia t Name: Martha Payton Unit #: [id number] Loc: ER Thania Meraz er: Lacho Correa M.D. Accoun t #: [id number] Status : REG ER Primar y Care [facility] er: Yulissa Lainez Date of Exam: 05/24 10/15 Sex: F Admiss ion Date: : 1949 Age: 73 Exam(s ) XR CHEST 2V PA LATERA L EXAM: XR CHEST 2V PA LATERA L CLINIC AL HISTOR Y: ams. TECHNI QUE: 2D digita l imagin g was perfor med. COMPAR JA: No exams were availa ble for compar ja FINDIN GS: 2 views: There is sterno ivonne wires. Heart size is normal . The medias tinum is not widene d. Lungs are clear. No infilt rates nor pleura l effusi ons. IMPRES NATASHA: No acute pulmon olman findin gs. Previo us sterno ivonne. Normal heart size. No CHF. DATA REPOSI TORY: RADIAT ION DOSE DELIVE RED: Gin torres By: Lacho Correa M.D. CC: ------ ------ ------ ------ ------ ------ ------ ------ ------ ------ ------ ------ - Dictat ed By: Aden Johnston M.D. 1828 Transc ribed By: Vickie RODRIGUEZ,Yessenia kendra 1828 This is privil eged, confid ential inform ation intend ed only for the provid er named. Any use or distri bution by any person other than this provid er is strict ly prohib ited. If you receiv e this report in error, please notify us immedi ately at and return the origin al report to us at the addres s above. Thank- you. INTERFACE [facility] [address], [place], [address] 06/12/2024 18:34:32 06/12/20 24 06/12/2024 x-ray imagi ng repor t Patikatie t Name: Martha Payton Unit #: [id number] Loc: ER Orderi ng Provid er: Lacho Correa M.D. Accoun t #: [id number] Status : REG ER Primar y Care Provid er: Yulissa Lainez hanh Date of Exam: 05/24 10/15 Sex: F Admiss ion Date: : 1949 Age: 73 Exam(s ) XR PELVIS AP EXAM: XR PELVIS AP CLINIC AL HISTOR Y: ams, remote fall. TECHNI QUE: 2D digita l imagin g was perfor med. COMPAR JA: No exams were availa ble for compar ja FINDIN GS: Single AP view of the pelvis -hips No eviden ce of obviou s pelvic nor hip fractu re. SI joints appear unrema rkable . Minima l degene rative change s in the left hip. IMPRES NATASHA: No pelvic nor hip fractu res eviden t on this single view. DATA REPOSI TORY: RADIAT ION DOSE DELIVE RED: Ordere d By: Lacho Correa M.D. CC: ------ ------ ------ ------ ------ ------ ------ ------ ------ ------ ------ ------ - Dictat ed By: Aden Johnston M.D. 1829 Transc ribed By: Vickie RODRIGUEZ,Yessenia kendra 1829 This is privil eged, confid ential inform ation intend ed only for the provid er named. Any use or distri bution by any person other than this provid er is strict ly prohib ited. If you receiv e this report in error, please notify us immedi ately at [phone] and return the origin al report to us at the addres s above. Thank- you. INTERFACE [facility] [address], [place], [address] 06/12/2024 18:34:33 06/12/20 24 06/12/2024 CT imagi ng repor t Patien t Name: Martha Pyaton Unit #: [id number] Loc: ER Orderi ng Provid er: Lacho Correa M.D. Accoun t #: [id number] Status : REG ER Primar y Care Provid er: Yulissa Lainez hanh Date of Exam: 05/24 10/15 Sex: F : 1949 Age: 73 Exam(s ) a CT:CT head wo Exam(s ) CT HEAD WO EXAM: CT HEAD WO CLINIC AL HISTOR Y: ams. TECHNI QUE: Imagin g Protoc ol: Axial comput ed tomogr aphy images with orozco l and sagitt al reform atted images were create d and review ed COMPAR JA: Prior brain MRI of 2023 was review ed. FINDIN GS: There are no skull fractu res. There is no fluid in the visual ized parana chino sinuse s. There is a large area of acute infarc tion in the right occipi araceli pariet al region , not previo usly eviden t on MRI scan of 2023 there is ribbon like sulcal hyperd ensity in this region which may repres ent some petech ial hemorr raul. The above findin gs are superi mposed upon abunda nt bilate ral perive ntricu lar hypode nsity consis tent with chroni c small vessel diseas e, as eviden t on the prior MRI study. There is also a small no nhemor rhagic lacuna r infarc t in the right basal gangli a again noted. IMPRES NATASHA: Large area of acute infarc t in the right occipi araceli pariet al region . Within this area is ribbon like hyperd ensity consis tent with probab le petech ial hemorr raul at the level the sulci. The above findin gs are superi mposed upon abunda nt bilate ral perive ntricu lar white matter diseas e, as was eviden t on prior MRI study of 2023. Report called by myself to IVA deshpande 2023 at 6:35 p.m. RADIAT ION DOSE DELIVE RED: 848.52 mGy.cm Total DLP DATA REPOSI TORY: All CT scans at this facili ty are submit liz to the [facility] Radiol ogy Data Regist ry (NRDR) Dose Index Regist ry (DIR) with the [place] Radiol ogy (ACR). RADIAT ION OPTIMI ZATION : All CT scans at this facili ty use at least one of these dose optimi zation techni ques: automa liz exposu re contro l; mA and/or kV adjust ment per patien t size (inclu christian target ed exams where dose is matche d to clinic al indica tion); or iterat marc recons tructi on. 010: Total DLP = 0.00 mGy-cm Ordere d By: Lacho Correa M.D. CC: ------ ------ ------ ------ ------ ------ ------ ------ ------ ------ ------ ------ ---- Dictat ed By: Aden Johnston M.D. 1837 Transc ribed By: Vickie RODRIGUEZ,Yessenia gardner 1837 This is privil eged, confid ential inform ation intend ed only for the provid er named. Any use or distri bution by any person other than this provid er is strict ly prohib ited. If you receiv e this report in error, please notify us immedi michellely at and return the origin al report to us at the addres s above. Thank- you. INTERFACE [facility] [id number], [place], [address] 06/12/2024 18:43:33 06/12/20 24 06/12/2024 vrad repor t Patien t Name: Martha Payton Unit #: [id number] Loc: ER Orderi ng Provid er: Accoun t #: [id number] Status : REG ER Primar y Care Provid er: Yulissa Lainez Date of Exam: 05/24 10/15 Sex: F : 1949 Age: 73 Exam(s ) PROCED URE INFORM ATION: Exam: CTA Head Withou t And With Contra st, Arteri ograph y Exam date and time: 024 8:34 PM Age: 73 years old Clinic al indica tion: Condit ion or diseas e; Other: Occipi araceli stroke TECHNI QUE: Imagin g protoc ol: Comput ed tomogr aphic angiog john of the head withou t and with contra st. Exam focuse d on the arteri es. 3D render ing (Not superv ised by radiol ogist) : MIP and/or 3D recons tructe d images were create d by the techno logist . Other techni que: STROKE PROTOC OL was implem ented. COMPAR JA: MR ANGIO BRAIN WO 024 1:09 PM FINDIN GS: ANTERI OR CIRCUL ATION: Right event planning intern al caroti d artery : Calcif ied plaque with severe stenos is cavern ous right ICA. Right middle cerebr al artery : Modera te to severe stenos is centrifugal extractor operator ior M3 branch right MCA. No signif icant stenos is remain lien of the right MCA. Right anteri or cerebr al artery : No occlus ion or signif icant stenos is. No aneury sm. Left event planning intern al caroti d artery : Calcif ied plaque with modera te stenos is cavern ous left ICA. Left middle cerebr al artery : No occlus ion or signif icant stenos is. No aneury sm. Left anteri or cerebr al artery : No occlus ion or signif icant stenos is. No aneury sm. TURRET PUNCH OPERATOR IOR CIRCUL ATION: Right verteb ral artery : No occlus ion or signif icant stenos is. No aneury sm. Left verteb ral artery : No occlus ion or signif icant stenos is. No aneury sm. Basila r artery : No occlus ion or signif icant stenos is. No aneury sm. Right centrifugal extractor operator ior cerebr al artery : No occlus ion or signif icant stenos is. No aneury sm. Left centrifugal extractor operator ior cerebr al artery : No occlus ion or signif icant stenos is. No aneury sm. HEAD: Brain: Stable right centrifugal extractor operator ior fronta l and pariet al infarc t. Cerebr al ventri cles: Normal . No ventri culome luiz. Bones: Unrema rkable . No acute fractu re. Parana chino sinuse s: Visual ized sinuse s are normal . No fluid levels . Mastoi d air cells: Visual ized mastoi ds are normal . No mastoi d effusi on. Soft tissue s: Unrema rkable . IMPRES NATASHA: 1. Stable right centrifugal extractor operator ior fronta l and pariet al infarc t. 2. 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 3. Calcif ied plaque with modera te stenos is cavern ous left ICA. 4. Modera te to severe stenos is centrifugal extractor operator ior M3 branch right MCA. ASSESS MENT: ASPECT S (Brandon ta Stroke Progra m Early CT Score) is 8. ====== ====== ====== ====== = PROCED URE INFORM ATION: Exam: CTA Neck Withou t And With Contra st Exam date and time: 024 8:34 PM Age: 73 years old Clinic al indica tion: Condit ion or diseas e; Other: Occipi araceli stroke TECHNI QUE: Imagin g protoc ol: Comput ed tomogr aphic angiog john of the neck withou t and with contra st. Exam focuse d on the cervic al segmen ts of the vascul ature. 3D render ing (Not superv ised by radiol ogist) : MIP and/or 3D recons tructe d images were create d by the techno logist . COMPAR JA: MR ANGIO NECK WO 024 1:19 PM FINDIN GS: Right common caroti d artery : No stenos is. No dissec tion or occlus ion. Right event planning intern al caroti d artery : No stenos is of the extrac ranial segmen t. No dissec tion or occlus ion. Right sample sawyer al caroti d artery : No occlus ion or stenos is of the origin . Left common caroti d artery : No stenos is. No dissec tion or occlus ion. Left event planning intern al caroti d artery : No stenos is of the extrac ranial segmen t. No dissec tion or occlus ion. Left sample sawyer al caroti d artery : No occlus ion or stenos is of the origin . Right verteb ral artery : Hypopl astic right verteb ral artery , with multif ocal severe stenos is throug hout. Left verteb ral artery : Left verteb ral artery domina nt. No stenos is or occlus ion. Soft tissue s: Normal . No signif icant soft tissue swelli ng. Bones/ joints : Degene rative spondy litic change s throug hout the cervic al spine. Mild centra l canal stenos is C3-C4, C6-C7 with modera te to severe centra l canal stenos is C4-C5 and C5-C6. IMPRES NATASHA: Hypopl astic right verteb ral artery , with multif ocal severe stenos is throug hout. REFERE NCES: NASCET CRITER IA. The degree of stenos is in the cervic al segmen t of the event planning intern al caroti d artery is based on NASCET criter ia. Normal is no stenos is. Mild is less than 50% stenos is. Modera te is 50-69% stenos is. Severe is 70% to 99% stenos is. Total occlus ion is no detect able patent lumen. Dictat ed and Authen ticate d by: Abelardo Nagel MD. Thania ng:Ivet BURNST Shelby pina MD Access ion#=[id number] Gin torres By: CC: ------ ------ ------ ------ ------ ------ ------ ------ ------ ------ ------ ------ ---- Dictat ed By: Report s vrad 2033 Transc ribed By: Di Merge 2033 This is privil eged, confid ential inform ation intend ed only for the provid er named. Any use or distri bution by any person other than this provid er is strict ly prohib ited. If you receiv e this report in error, please notify us immedi ately at [phone] and return the origin al report to us at the addres s above. Thank- you. [facility] [address], [place], [address] 06/15/2024 15:45:36 06/13/2006/13/2024 vrad repor t Patikatie t Name: Martha Payton Unit #: [id number] Loc: MS Thania barrios Provid er: Accoun t #: [id number] Status : ADM IN Primar y Care Provid er: Yulissa Lainez Date of Exam: 05/24 11/15 Sex: F : 1949 Age: 73 Exam(s ) PROCED URE INFORM ATION: Exam: CT Head Withou t Contra st Exam date and time: 024 9:06 AM Age: 73 years old Clinic al indica tion: Other: Follow -up possib le hemorr raul right occipi araceli CVA TECHNI QUE: Imagin g protoc ol: Comput ed tomogr aphy of the head withou t contra st. COMPAR JA: CT BRAIN NECK CTA 024 8:34 PM FINDIN GS: Brain: Persis tent hemorr hagic infarc t of the right pariet al lobe. Probab le scatte red areas of enhanc ement. Scatte red patchy white matter hypode nsitie s. 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 No midlin e shift or extra- axial collec tion. Cerebr al ventri cles: No ventri culome luiz. Parana chino sinuse s: Modera te mucosa l thicke edelmira of the left spheno id sinus with bubbly debris . Mastoi d air cells: Visual ized mastoi d air cells are well aerate d. Bones: Unrema rkable . No acute fractu re. Soft tissue s: Unrema rkable . Vascul ature: There is likely residu al contra st in the visual ized vascul ar system . Other findin gs: Intrac ranial athero sclero tic calcif icatio ns. IMPRES NATASHA: 1. Persis tent hemorr hagic infarc t of the right pariet al lobe. Probab le scatte red areas of enhanc ement. 2. Modera te mucosa l thicke edelmira of the left spheno id sinus with bubbly debris . Dictat ed and Authen ticate d by: Sofy Cordero MD. Orderi ng:Peyton Zhou MD Access ion#=[id number] Ordere d By: CC: ------ ------ ------ ------ ------ ------ ------ ------ ------ ------ ------ ------ ---- Dictat ed By: Report s vrad [id number] Transc ribed By: Chelsea Chanel 905 This is privil eged, confid ential inform ation intend ed only for the provid er named. Any use or distri bution by any person other than this provid er is strict ly prohib ited. If you receiv e this report in error, please notify us immedi ately at [phone] and return the origin al report to us at the addres s above. Thank- you. [email or web address] [facility] [address] [place], [address] 06/15/2024 15:45:36 06/13/20 24 06/13/2024 CT imagi ng repor t Patien t Name: Martha Payton Unit #: [id number] Loc: Ordermariola ng Provid er: Lacho Correa M.D. Accoun t #: [id number] Status : ADM IN Primar y Care Provid er: Yulissa Lainez Date of Exam: 05/24 10/15 Sex: F : 1949 Age: 73 Exam(s ) a CT:CT brain neck CTA Exam(s ) CT BRAIN NECK CTA EXAM: CT BRAIN NECK CTA CLINIC AL HISTOR Y: occipi araceli stroke . TECHNI QUE: Imagin g Protoc ol: Axial CT angiog john was perfor med with multi- slice acquis ition and multi- planar and/or 3D recons tructi ons. CONTRA ST MATERI AL: Intrav enous: Omnipa que [address] volume :struc tured data in ml COMPAR JA: CT CT HEAD WO from 2023 FINDIN GS: CTA Neck W: Aortic arch anatom y: The aortic arch anatom y is conven tional and there is no signif icant stenos is at the origin of the great vessel s off of the aortic arch. No intima l flap eviden t. Sterno ivonne wires are noted. Anteri or circul ation: Both common caroti d arteri es ascend with normal lumina l diamet ers. There is calcif ied plaque at the level both caroti d bulbs and proxim al ICAs in the neck. On the right side there is calcif ied plaque centrifugal extractor operator iorly at the caroti d bulb-b ifurca tion level and there is also calcif ied plaque on the medial and centrifugal extractor operator ior saldaña of the proxim al right ICA. Amount of stenos is at this level is estima liz at approx imatel y 40 percen t in the proxim al right ICA. The right ICA is nicely patent in the upper neck. Left caroti d bulb exhibi ts some calcif ied plaque anteri sherry. There is calcif ied plaque on the centrifugal extractor operator ior wall the proxim al left ICA. Approx imatel y 30 percen t stenos is at this level. There is also self like plaque at the origin left ICA with more promin ent stenos is at this level, approx imatel y 70 percen t. Left ICA in the upper neck is patent . Economist Research Assistant ior circul ation: Both verteb ral arteri es origin ate in conven tional fashio n off of the subcla vian arteri es. The left verteb ral artery is domina nt and ascend s with normal lumina l diamet er of 4.5 mm within the forame n transv ersari um. The right verteb ral artery exhibi ts tight stenos is at its origin off the right subcla vian artery . The right verteb ral artery ascend s as a thin diamet er vessel (1.5 mm) within the right forame n transv ersari um and exhibi ts multip le areas of stenos is within this vessel . Howeve r, at the skull base it does appear to contri bute to the format ion of the basila r artery . CTA Brain W: Anteri or circul ation: Both event planning intern al caroti d arteri es are patent in the skull base-c arotid canals . Both intra cavern ous event planning intern al caroti d arteri es are periph erally calcif ied. There is a signif icant focal stenos is at the juncti on of the intra cavern ous and suprac linoid aspect of the right event planning intern al caroti d artery with approx imatel y 80 percen t stenos is at this level. Suprac linoid aspect s of both ICAs are patent . Both A1 segmen ts are patent althou gh focal stenos is is noted in the distal left A1 segmen t. Both anteri or cerebr al arteri es are patent and there is no aneury sm at the level of the anteri or commun icatin g artery . Left centrifugal extractor operator ior cerebr al artery is patent withou t signif icant stenos is. There is mild-m oderat e narrow ing in the proxim al right middle cerebr al artery . No intral uminal thromb us seen. No aneury sms. No dissec tion flaps. Economist Research Assistant ior circul ation: The basila r artery ascend s in the midlin e. Distal ly it gives off patent right centrifugal extractor operator ior cerebr al artery althou gh there is a modera te stenos is in the centrifugal extractor operator ior cerebr al artery a few cm distal to its origin . The left centrifugal extractor operator ior cerebr al artery is predom inantl y fed by a centrifugal extractor operator ior commun icatin g artery on the left side of the [place]. This that There is no eviden ce of aneury sm at the tip of the basila r artery nor elsewh ere in the [place]. CT BRAIN: Again noted is the right occipi araceli pariet al infarc t. Diffic ult to compar e to the prior study as there was no noncon trast scan done prior to contra st inject ion on the presen t study. Nevert heless , the amount of probab le petech ial hemorr raul at the site of the infarc t is stable . There is no large increa sing intra- axial nor extra- axial hemorr raul. There are no ring enhanc ing lesion s in the brain. IMPRES NATASHA: 1. Relati vely stable appear ance of the right pariet o-occi pital infarc t which again exhibi ts some petech ial hemorr raul but diffic ult to compar ed to previo us as there was no noninf used ran done prior to the CT angio inject ion. 2. There is signif icant calcif ied and noncal cified plaque in the caroti d arteri es on both sides the neck, with approx imatel y 40 percen t stenos is in the right ICA and 30 percen t stenos is in the proxim al left ICA. 3. The left verteb ral artery is domina nt. The right verteb ral artery is a thin vessel throug hout its length also exhibi ting multip le stenos es. Nevert heless , does contri bute to the format ion of the basila r artery at the skull base. 4. There are no ring enhanc ing lesion s in the brain. RADIAT ION DOSE DELIVE RED: 1,900. 42mGy. cm Total DLP DATA REPOSI TORY: All CT scans at this facili ty are submit liz to the [place] Radiol ogy Data Regist ry (NRDR) Dose Index Regist ry (DIR) with the [place] of Radiol ogy (ACR). RADIAT ION OPTIMI ZATION : All CT scans at this facili ty use at least one of these dose optimi zation techni ques: automa liz exposu re contro l; mA and/or kV adjust ment per patien t size (inclu christian target ed exams where dose is matche d to clinic al indica tion); or iterat marc recons tructi on. 017: Total DLP = 0.00 mGy-cm Ordere d By: Lacho Correa M.D. CC: ------ ------ ------ ------ ------ ------ ------ ------ ------ ------ ------ ------ ---- Dictat ed By: Aden Johnston M.D. 1545 1545 Transc ribed By: Vickie RODRIGUEZ,Yessenia gardner 154 This is privil eged, confid ential inform ation intend ed only for the provid er named. Any use or distri bution by any person other than this provid er is strict ly prohib ited. If you receiv e this report in error, please notify us immedi michellely at and return the origin al report to us at the addres s above. Thank- you. INTERFACE [facility] [address] [place], [address] 06/13/2024 15:50:13 06/13/2006/13/2024 CT imagi ng repor t Patien t Name: Martha Payton Unit #: [id number] Loc: MS Orderi ng Provid er: Jabari Bustamante Accoun t #: [id number] Status : ADM IN Primar y Care Provid er: Yulissa Lainez Date of Exam: 05/24 11/15 Sex: F : 1949 Age: 73 Exam(s ) a CT:CT head wo Exam(s ) CT HEAD WO EXAM: CT HEAD WO CLINIC AL HISTOR Y: Follow -up possib le hemorr raul right occipi araceli CVA. TECHNI QUE: Imagin g Protoc ol: Axial comput ed tomogr aphy images with orozco l and sagitt al reform atted images were create d and review ed COMPAR JA: CT CT HEAD WO from [address] BRAIN NECK CTA from 2023 FINDIN GS: There are no skull fractu res. Mucosa l thicke edelmira and mild fluid is noted in the left spheno id sinus, unchan ged. The right occipi araceli pariet al infarc t is again noted with again noted involv ed sulcal hyperd ensity -proba ble petech ial hemorr hages in the area of infarc t. Again noted is some efface ment of the region al gyri and sulci prior there is no signif icant mass effect upon the adjace nt latera l ventri allen. No shift. No eviden ce of intrav entric ular hemorr raul. Right basal gangli a nonhem orrhag ic lacuna r infarc t is again noted. The above findin gs are again noted be superi mposed upon abunda nt bilate ral perive ntricu lar hypode nsity consis tent with chroni c small vessel diseas e. IMPRES NATASHA: Redemo nstrat ion of right pariet al lobe infarc t which contai ns petech ial hemorr raul. No shift of midlin e struct ures. No intrav entric ular blood. Some mucosa l thicke edelmira left spheno id sinus again noted with some bubbly debris therei n, unchan ged from yester day. Other visual ized parana chino sinuse s are clear. RADIAT ION DOSE DELIVE RED: 935.47 mGy.cm Total DLP DATA REPOSI TORY: All CT scans at this facili ty are submit liz to the Nation al Radiol ogy Data Regist ry (NRDR) Dose Index Regist ry (DIR) with the [employer] o[employer] (ACR). RADIAT ION OPTIMI ZATION : [facility] use at least one of these dose optimi zation techni ques: automa liz exposu re contro l; mA and/or kV adjust ment per patien t size (inclu christian target ed exams where dose is matche d to clinic al indica tion); or iterat marc recons tructi on. 001: Total DLP = 0.00 mGy-cm Ordere d By: Jabari Bustamante CC: ------ ------ ------ ------ ------ ------ ------ ------ ------ ------ ------ ------ ---- Dictat ed By: Aden Johnston M.D. 1602 1602 Transc ribed By: Vickie RODRIGUEZ,Yessenia kendra 1602 This is privil eged, confid ential inform ation intend ed only for the provid er named. Any use or distri bution by any person other than this provid er is strict ly prohib ited. If you receiv e this report in error, please notify us immedi ately at [phone] and return the origin al report to us at the addres s above. Thank- you. INTERFACE [facility] [address], [place], [address] 06/13/2024 16:16:16 06/14/20 24 06/14/2024 MRI imagi ng repor t Patien t Name: Martha Payton Unit #: [id number] Loc: Ordermariola ng Provid er: Jabari Bustamante Accoun t #: [id number] Status : ADM IN Primar y Care Provid er: Yulissa Lainez Date of Exam: 05/24 12/13 Sex: F Admiss ion Date: : 1949 Age: 73 Exam(s ) MR BRAIN WO EXAM: MR BRAIN WO CLINIC AL HISTOR Y: Subacu te right occipi araceli CVA TECHNI QUE: Multip lanar multis equenc e MRI of the brain was perfor med. COMPAR JA: MR MR BRAIN WO from 2023 MR MR ANGIO BRAIN WO from [address] BRAIN NECK CTA from [address] HEAD WO from 2023 FINDIN GS: The examin ation is limite d due to patien t motion artifa ct. VENTRI CLES AND EXTRA AXIAL SPACES : Normal in size and morpho logy for the patien t's age. MIDLIN E SHIFT: None. CEREBR AL PARENC HYMA: There is again seen a large area of restri cted diffus ion involv ing the right pariet al occipi araceli region consis tent with subacu te infarc t. There is a face mint of the sulci and edema is presen t. There is a subtle area of hyperi ntensi ty on the diffus ion-we ighted images in the left occipi araceli lobe above the atria but no corres pondin g findin g is seen on the ADC images . There are areas of hyperi ntense signal seen in the white matter on the FLAIR and T2 weight ed images most consis tent with chroni c microv ascula r ischem ic diseas e. HEMORR RAUL: There are areas of signal loss within the subacu te infarc t consis tent with prior hemorr raul. BRAINS TEM/CE REBELL UM: Normal . CALVAR IUM: Normal . VISUAL IZED PARANA CHINO SINUSE S/MAST OIDS:S mall amount of fluid seen in the spheno id sinus. The remain ing visual ized parana chino sinuse s are clear. PITUIT OLMAN GLAND: Unrema rkable . OTHER FINDIN GS: None. IMPRES NATASHA: 1. Redemo nstrat ion of a large right pariet al occipi araceli region subacu te infarc t. 2. Age-re lated cerebr al atroph y and chroni c microv ascula r ischem ic diseas e. 3. The examin ation is limite d due to patien t motion artifa ct. DATA REPOSI TORY: Ordere d By: Jabari Bustamante CC: ------ ------ ------ ------ ------ ------ ------ ------ ------ ------ ------ ------ - Dictat ed By: Satinder Odonnell M.D. 1223 1223 Transc ribed By: Satinder Odonnell 1223 This is privil eged, confid ential inform ation intend ed only for the provid er named. Any use or distri bution by any person other than this provid er is strict ly prohib ited. If you receiv e this report in error, please notify us immedi ately at and return the origin al report to us at the addres s above. Thank- you. INTERFACE [facility] [address], [place], [address] 06/14/2024 12:37:22 06/14/20 24 06/14/2024 ultra sound imagi ng repor t Obdulia t Name: Martha Payton Unit #: [id number] Loc: MS Thania barrios Provid er: Jabari Bustamante Accoun t #: [id number] Status : ADM IN Primar y Care Provid er: FatouDanaradhalacy hanh Date of Exam: 05/24 12/13 Sex: F Admiss ion Date: : 1949 Age: 73 ------ ------ --- APPROV ED REPORT ------ ------ -- EXAM: Compre hensiv e 2D, Dopple r, and color- flow Echoca rdiogr am Obdulia t Locati on: In-Pat ient Room/B ed: 208 Sonogr apher: Henrique Oneill, RDCS (AE) Indica tions: CVA Echo Enhanc ing Agent Indica tion: Rule out Shunt Agent( s) / Amount (s) Used: Agitat ed Saline 30.0 cc Commen ts: Contra st study was perfor med with 3 IV inject ions of 10ccs of agitat ed normal saline , at rest, with cough and post valsal va maneuv er. Negati ve contra st study for shunt flow. Conclu natasha Border line concen tric left ventri cular hypert rophy. Ejecti on fracti on is 65%. Wall motion is normal Normal right ventri cular size and functi on Both atria are normal in size No intrac ardiac shunti ng is identi fied with inject ion of agitat ed saline There are no struct ural valvul ar abnorm alitie s Mild mitral regurg itatio n Estima liz right ventri cular systol ic pressu re is 29 mmHg Wall motion Left Ventri allen The left ventri allen is normal size. The left ventri cular systol ic functi on is normal . The left ventri cular ejecti on fracti on is within the normal range. Border line concen tric left ventri cular hypert rophy. There is normal LV segmen araceli wall motion . There is no ventri cular septal defect visual ized. LVEF is 65%. Right Ventri allen The right ventri allen is normal size. The right ventri cular systol ic functi on is normal . Atria The left atrium size is normal . The right atrium size is normal . The intera trial septum is intact with no eviden ce for an atrial septal defect . Saline bubble contra st intrav enous inject ion does not demons trate PFO. Aortic Valve The aortic valve is normal in struct ure. Aortic valve is trilea flet. There is no aortic valvul ar stenos is. No aortic regurg itatio n is presen t. Mitral Valve The mitral valve is normal in struct ure. No eviden ce of mitral valve stenos is. Mild mitral regurg itatio n. Tricus pid Valve The tricus pid valve is normal in struct ure. There is no tricus pid valve stenos is. Trace tricus pid regurg itatio n. The RVSP is 28.8 mmHg. Pulmon ic Valve The pulmon olman valve is normal in struct ure. There is no pulmon ic valvul ar stenos is. Mild pulmon ic regurg itatio n. Great Vessel s The aortic root is normal in size. The ascend ing aorta is normal in size. Aortic arch is not well visual ized. IVC is normal in size and collap ses >50% with inspir ation. Perica rdium There is no perica rdial effusi on. 2D Dimens ions IVSD d PLAX 1.02 cm F: 0.6-1. 0 Ao Root d 2.36 cm F: 2.7 - 3.3 LVPW d PLAX 0.99 cm F: 0.6 - 1.0 Ao Asc Diam d 2.66 cm F: 2.3 - 3.1 LVID d PLAX 4.57 cm F: 3.8 - 5.2 LVDs 2.96 cm F: 2.2 - 3.5 LV EF Teichh olz 64.6 % FS 35.19 % LV EDV (Teich ) 95.7 mL LV ESV (Teich ) 33.9 mL M-Mode TAPSE 2.10 cm (M/F) >1.7 Auto EF LV EDV A4C 67.4 mL LV EDV A2C 67.0 mL LV EDV BP 67.0 mL LV ESV A4C 23.6 mL LV ESV A2C 22.0 mL LV ESV BP 22.8 mL LVEF(% ) A4C 65.0 % LVEF(% ) A2C 67.1 % LVEF(% ) BP 65.9 % LV SV A4C 43.8 ml LV SV A2C 45.0 ml LV SV BP 44.1 ml LV CO A4C 2.3 L/min LV CO A2C 2.2 L/min LV CO BP 2.2 L/min HR A4C 52.10 BPM HR A2C 48.92 BPM LV EDV Index (BP) LA Volume LA Length A4C 3.8 cm LA Length A2C 4.6 cm LA Area A4C s 11.57 cm2 LA Area A2C s 12.84 cm2 LA Vol A4C A-L 29.96 mL LA Vol A2C A-L 30.55 mL LA Vol Biplan e A-L 33.2 mL LA Vol A4C MOD 28.1 mL LA Vol A2C MOD 29.1 mL LA Vol BP MOD 31.2 mL RA Volume RA Area A4C 7.3 cm2 RA ESV A4C (A-L) 12.2mL RA Vol/BS A A4C A-L RA Length A4C 3.7 cm RA ESV A4C (MOD) 11.6mL LV Diasto logy MV E' medial 0.055 (>0.07 m/s) MV E Vmax 1.30 (0.4-1 .3 m/s) MV E/E' MED 23.43 (<14) MV A Vmax 0.90 (0.4-1 .3 m/s) MV E' latera l 0.073 (>0.1 m/s) E/A Ratio 1.4 MV E/E' LAT 17.84 (<14) MV E' Averag e 0.064 m/s MV E/E'(a verage ) 20.26 Aortic Valve AoV Vmax 0.99 m/s LVOT Vmax 0.98 m/s AoV Peak Grad 3.9 mmHg LVOT Peak Grad 3.9 mmHg AoV Area (Vmax) 2.15 cm2 LVOT VTI 0.284 m AoV VTI 0.291 m LVOT Mean Grad 1.8 mmHg AoV Mean Reginaldo. 0.73 m/s LVOT SV 61.20 mL AoV Mean Grad 2.3 mmHg LVOT Diam s 1.65 cm AoV Area (VTI) 2.10 cm2 AV Regurg Peak Gr. 3.90 mmHg Veloci ty Ratio 0.99 Mitral Valve MV DT 136 (160-2 40 msec) MV Vmax TIPS 1.28 m/s MV Mean Grad 1.7 (<2mmH g) MV VTI 0.406 m Pulmon olman Valve PV Vmax 1.15 (0.5-1 .5 m/s) RVOT Vmax 0.85 m/s PV Peak Grad 5.3 mmHg RVOT Peak Gr. 2.9 mmHg PV Mean Reginaldo 0.84 m/s RVOT VTI 0.238 m PV Mean Grad 3.2 mmHg RVOT Mean Gr. 1.4 mmHg Tricus pid Valve RA Pressu re 3.00 mmHg TR Vmax 2.54 m/s TR Peak Grad 25.8 mmHg RVSP (TR) 28.8 mmHg Gin torres By: Jabari Bustamante CC: ------ ------ ------ ------ ------ ------ ------ ------ ------ ------ ------ ------ - Dictat ed By: Jada Mondragon M.D. 1516 1520 Transc ribed By: Jada Mondragon MD 1516 This is privil eged, confid ential inform ation intend ed only for the provid er named. Any use or distri bution by any person other than this provid er is strict ly prohib ited. If you receiv e this report in error, please notify us immedi michellely at [phone] and return the origin al report to us at the addres s above. Thank- you. INTERFACE [facility] [id number], [place], [address] 06/14/2024 15:22:54 Result Notes None recorded. Problems Name Problem SNOMED Code Status Onset Date Resolution Date Notes Provider Name and Address Organization Details Recorded Time Poor short-term memory 767678001 Active [address], [place], [address], [facility] 4 10:28:13 Essential hypertensi on 26789603 Active [address], [place], [address], [facility] 4 10:29:23 Blood glucose outside reference range 307042249 Active [address], [place], [address], [facility] 4 10:30:43 Iritis 44069574 Active [address], [place], [address], [facility] 4 10:31:43 Tobacco dependence caused by cigarettes 950952055408 40881 Active [address], [place], [address], [facility] 4 12:23:42 Adjustment disorder with depressed mood 26111252 Active [address], [place], [address], [facility] 4 12:26:28 Prediabete s 578293786 Active 2023 5.7% on [address], [place], [address] , [facility] 4 07:52:17 History of coronary artery bypass grafting 886386469 Active 2009 In 2010 per prior med recs [address], [place], [address], [facility] 4 14:53:13 Unexplaine d weight loss 846289171 Active [address], [place], [address] , [facility] 13:43:55 Chronic cough 47193284 Active [address], [place], [address] , [facility] 13:44:00 Pain of left shoulder joint 805585119893 84186 Active [address], [place], [address] , [facility] 13:44:16 Hyperlipid emia 35883681 Active [address], [place], [address], [facility] 4 13:48:11 Chronic obstructiv e pulmonary disease 97226495 Active [address], [place], [address], [facility] 4 13:49:36 Lacunar infarction 246590545 Active [address], [place], [address], [facility] 4 18:17:27 Bradycardi a 24788679 Active [address], [place], [address], [facility] 18:36:12 Chronic kidney disease stage 3B 793258526 Active 2023 NOted in 1 Note in prior MR as stage 3 D/T HTN. Plan to control BP as care plan. [address], [place], [address], [facility] 4 05:24:31 Pulmonary emphysema 74222715 Active [address], [place], [address], [facility] 4 12:31:17 Leukocytos is 986553720 Active [address], [place], [address], [facility] 4 20:10:17 Pyuria 3803617 Active [address], [place], [address], [facility] 4 20:12:07 Agitation due to dementia 667670656 Active [address], [place], [address], [facility] 16:19:39 Problem Notes None recorded. Medical Equipment None Reported. Allergies Allergen ID Allergen Name Allergen Category Reaction Reaction Severity Criticality Documentation Date Start Date Code Code System Note Provider Name and Address Organization Details Recorded Time 00931 chlorthal idone medicatio n Not available Not available [facility] 01/28/[address], [place], [address], [facility] 17:56:24 88728 hydrochlo rothiazid e medicatio n Not available Not available [facility] 01/28/[address], [place], [address] , [facility] 4 17:56:38 Medications Name Sig Start Date Stop Date Status Note LastModified by Organization Details LastModified Time losartan 50 mg tablet Take 1 tablet twice a day by oral route as directed . 2023 active [facility] Not Available Not Available Not Available quetiapin e 25 mg tablet 1 tablet by mouth each night 2023 active Not Available Not Available Not Avai lable atorvasta tin 80 mg tablet Take 1 tablet every day by oral route at bedtime. 2023 active updated from [employer] EMR Not Available Not Available Not Available cefuroxim e axetil 250 mg tablet Take 1 tablet by oral route. 2023 active Not Available Not Available Not Avai lable atorvasta tin 20 mg tablet 1 tablet by mouth each evening to lower choleste rol 07/01 completed Not Available Not Available Not Available aspirin 325 mg tablet Take 1 tablet every day by oral route as needed. 07/01 completed Not Available Not Available Not Available sodium bicarbona te 325 mg tablet Take 2 tablets every day by oral route as directed . 2023 active per [facility] EMR Not Available Not Available Not Available clopidogr el 75 mg tablet Take 1 tablet every day by oral route as directed . 2023 active Not Available Not Available Not Avai lable amlodipin e 5 mg tablet Take 1 tablet every day by oral route as directed . 2023 active Updated from [employer] EMR Not Available Not Available Not Available aspirin 81 mg tablet,de layed release Take 1 tablet every day by oral route. 2023 active Not Available Not Available Not Avai lable losartan 25 mg tablet Take 1 tablet every day by oral route as directed . 07/01 completed Not Available Not Available Not Available sertralin e 25 mg tablet Take 1 tablet every day by oral route. 2023 active Not Available Not Available Not Avai lable nicotine 7 mg/24 hr daily transderm al patch Apply 1 patch every day by transder mal route as directed . 2023 active Per [facility] EMR Not Available Not Available Not Available Ventolin HFA 90 mcg/actua tion aerosol inhaler 2-puffs every four hours as needed 2023 active Not Available Not Available Not Avai lable Bactrim DS 800 mg-160 mg tablet Take 1 tablet every 12 hours by oral route for 7 days. 07/01 completed Not Available Not Available Not Available metoprolo l tartrate 25 mg tablet Take 1 tablet twice a day by oral route. 2023 active Not Available Not Available Not Avai lable amoxicill in 01/27 completed Not Available Not Available Not Available Vitals Date Recorded Body height Body mass index (BMI) Body weight Body temperature Oxygen saturation Oxygen saturation in Arterial blood by Pulse oximetry Heart rate Respiratory rate Systolic blood pressure Diastolic blood pressure Systolic blood pressure Diastolic blood pressure Systolic blood pressure Diastolic blood pressure Systolic blood pressure Diastolic blood pressure Provider Name and Address Organization Details Last Updated DateTime 147.32 cm 20.5 kg/m2 66951.4 5 g 98.1 [degF] 99 % 99 % 62 /min 18 /min 195 mm[Hg] 63 mm[Hg] 211 mm[Hg] 102 mm[Hg] 210 mm[Hg] 75 mm[Hg] 199 mm[Hg] 66 mm[Hg] Keesha Zaragoza MA [facility], [facility] 21:02:19 Social History Question Answer Notes LastModified by Organizat ion Details LastModified Time Tobacco Smoking Status Current Every Day Smoker Kylah Almonte MA null, [facility]. 11/01/2023 11:33:08 Would You Say That, In General, Your Health Is Fair Information not available 11/26/2023 How Often Does Anyone, Including Family, Physically Hurt You? Never Information not available 11/26/2023 How Often Does Anyone, Including Family, Insult Or Talk Down To You? Never Information no t available 11/26/2023 How Often Does Anyone, Including Family, Threaten You With Harm? Never Information not available 11/26/2023 How Often Does Anyone, Including Family, Scream Or Curse At You? Never Information not available 11/26/2023 Within The Past 12 Months, You Worried That Your Food Would Run Out Before You Got Money To Buy More. Never True Information n ot available 11/26/2023 Within The Past 12 Months, The Food You Bought Just Didn't Last And You Didn't Have Money To Get More. Never True Information not available 11/26/2023 How Hard Is It For You To Pay For The Very Basics Like Food, Housing, Medical Care, And Heating? Would You Say It Is: Not Hard At All Information not available 11/26/2023 In The Past 12 Months, Has Lack Of Reliable Transportation Kept You From Medical Appointments, Meetings, Work Or From Getting Things Needed For Daily Living? No Information not available 11/26/2023 What Is Your Housing Situation Today? I Have Housing. Information not available 11/26/2023 How Often In The Past Year Have You Used Marijuana (including Smoking, Vaping, Dabbing, Or Edibles)? Never Information not available 11/26/2023 How Often In The Past Year Have You Used Prescription Medications That Were Not Prescribed To You? Never Information not available 11/26/2023 How Often In The Past Year Have You Taken Your Own Prescription Medication More Than The Way It Was Prescribed Or For Different Reasons Than Its Intended Purpose? Never Information not available 11/26/2023 How Often In The Past Year Have You Used Other Drugs (for Example, Heroin, Cocaine, Meth, Salvia, Inhalants)? Never Information not available 11/26/2023 Have You Ever Used IV Drugs? No Information not available 11/26/2023 Date Of Most Recent SBINS 09/30/2023 Information not available 11/26/2023 What Was The Date Of Your Most Recent Tobacco Screening? 05/14/2024 [email or web address] Information n ot available 05/14/2024 How Much Tobacco Do You Smoke? 0.5 PPD [email or web address] Information not available 05/14/2024 Has Tobacco Cessation Counseling Been Provided? Yes Information not available 11/01/2023 On What Date Was Tobacco Cessation Counseling Provided? 05/14/2024 [email or web address] Information not available 05/14/2024 Do You Or Have You Ever Used Any Other Forms Of Tobacco Or Nicotine? No Information not available 11/01/2023 Sex: Unknown Functional Status None recorded. Mental Status None recorded. Family History Nothing Reported. Medical History No medical history recorded. Gynecological History Statement/Question Response Date of Last Pap Smear Date of Last Colonoscopy Most Recent Mammogram Most Recent Bone Density Obstetrics History GPAL:G 0 P 0 0 0 0 Past Encounters Encounter ID Performer Location Encounter Start Date Encounter Closed Date Diagnosis/Indication Diagnosis SNOMED-CT Code Diagnosis ICD10 Code [id number] ISATU ZAMORA PA-C [address] [place] [address] 05/14/2024 18:33:21 05/14/2024 21:16:51 Pyuria 6980760 R82.81 Health Concerns Section Related Observation LastModified by Organization Detai ls LastModified Time None Recorded Concern Status LastModified by Organization Details LastModified Time None Recorded Payers Encounter Date Sequence Insurance Name Policy Number Policy Nicole Covered Member ID Nicole Member ID Guarantor Name 05/14/2024 2 [facility] (MEDICAID) Jennifer Archer [id number] Jennifer Archer 05/14/2024 1 [place] [employer] Jennifer Archer [id number] Jennifer Archer Notes Date Note Type Note Provider Name and Address Organization Details Recorded Time 05/14/2024 text/html HPI Notes: I received a phone call from the patient's primary care provider stating he has concern for possibility of UTI as patient's caregiver does endorse that she has had some sundowning like activities which is not typical for her. This has been going on for about 4 to 5 days. Patient and niece present to clinic. Jennifer is a 73-year-old female who niece reports for the past 3 nights has been up all night not sleeping and speaking with people who are not there and you are indeed . She has not had behaviors like this with her dementia in the past. She has had diagnosis for about 1 year. She has no history of sundowning. She has been able to get her to sleep during the day. She does endorse that she has also had decreased food and fluid intake. She has been pushing liquids and has had at least 2 bottles of water today. She has not been necessarily prone to urinary tract infections. She has not noticed any fevers. No nausea or vomiting. She does endorse that she has diarrhea chronically and often has difficulty cleaning herself. Patient denies that she has any pain with urination nor does she feel like she has to go to the bathroom frequently. While I am speaking with her mentation actually seems somewhat clear at this time. [address], [place], [address], [facility]. 05/15/2024 13:54:05 OBGyn Episode No OBEpisode recorded.
--- OUTSIDE RECORDS SUMMARY | 2024-07-02 15:43 | XMS_ITS | Referral Summary ---
Author Organization [facility] Address [address] [place] [address] Care Team Providers Care Energy Conservation Engineer Name Role Phone Unavailable Primary Care Provider Unavailabl e Social History Tobacco Use Types Packs/Day Years Used Date Smoking Tobacco: Never Assessed Sex and Gender Information Value Date Recorded Sex Assigned at Not on file Gender Identity Not on file Sexual Orientation Not on file Plan of Treatment Not on file
--- OUTSIDE RECORDS SUMMARY | 2024-07-02 15:43 | XMS_ITS | Data Portability ---
Author Organization [place] - [facility] [place] [address] Assessment Encounter Date Assessment Date Assessment LastModified by Organization Details LastModified Time 01/28/2024 01/28/2024 Appointment slightly scattered with unexplained weight loss, so [employer] agreeable to have pt. back in office for EKG in light of Lacunar Infarct/Bradyc ardia today. We will hold off on cardiac monitoring order to do the EKG in office first. [email or web address] Not available 01/28/2024 18:41:23 Plan of Treatment Reminders Order Date Submit Date Provider Last Modified By Organization Details Last Modified Time Details Appointments Follow Up 30 2023 08:30A M Eduardo Lainez Not available Not available Not available Annual Wellness Exam 40 2024 02:30P M Eduardo Lainez Not available Not available Not available Lab CMP, serum or plasma 2023 024 NUNO [facility] (Registration ), [address] [place] [address] [place], [address], 11/01/2023 16:28:50 lipid panel, serum 2023 024 [email or web address] [facility] (Registration ), [address] [place] [address] [place], [address], 12/18/2023 08:29:02 vitamin B12 + folate, serum or blood - 1 SST, 1LAV, 1TIGER 2023 024 [email or web address] [facility] (Registration ), [address] [place] [address] [place], [address], 12/18/2023 08:29:01 TSH, serum or plasma [address] [facility] (Registration ), [address] [place] [address] [place], [address], 12/18/2023 08:29:02 HIV (1+2) Ab screen, serum [address] [facility] (Registration ), [address] [place] [address] [place], [address], 12/18/2023 08:29:02 RPR (rapid plasma reagin), serum [address] [facility] (Registration ), [address] [place] [address] [place], [address], 12/18/2023 08:29:02 CMP, serum or plasma 2023 024 NUNO [facility] (Registration ), [address] [place] [address] [place], [address], 12/11/2023 17:36:51 magnesium , serum or plasma [address] [facility] (Registration ), [address] [place] [address] [place], [address], 12/18/2023 08:29:02 HbA1c (hemoglob in A1c), blood [address] [facility] (Registration ), [address] [place] [address] [place], [address], 12/18/2023 08:29:02 CBC w/ auto diff - 1 SST, 1 LAV [address] Laboratory (Registration ), [address] [place] [address] [place], [address], 01/28/2024 21:28:19 CMP, serum or plasma [email or web address] [facility] (Registration ), [address] [place] [address] [place], [address], 01/28/2024 21:28:19 TSH + free T4, serum 2023 024 [facility] (Registration ), [address] [place] [address] [place], [address], 02/04/2024 10:03:18 lipid panel, serum 2023 024 [email or web address] [facility] ([facility] Direct), [address] [place] [address] [place], [address], 05/25/2024 11:29:30 culture, urine + sensitivi ty 2023 024 [facility] (Registration ), [address] [place] [address] [place], [address], 05/17/2024 08:14:58 microscop ic method, urine 2023 024 [facility] (Registration ), [address] [place] [address] [place], [address], 05/15/2024 08:48:21 urinalysi s, dipstick 2023 024 [email or web address] [facility], [address], [address], [place], [address], 05/14/2024 20:40:44 Referral None recorded. Procedures None recorded. Surgeries None recorded. Imaging MRI, brain, w/o contrast - No PA RequirdPt , 73-F, with undiagnos ed short term memory loss for MRI imaging to assess intracran ial pathology possibly related to this including microvasc ular disease, mass or lesion. Her most recent GFR 11/05/2023 at [facility] ED was 37, BUN 2023 024 [facility], [address], [place], [address], 01/19/2024 14:23:08 MR, angiogram , head + neck, w/wo contrast - Pt. with incidenta l finding of lacunar infarct on 01/19/2024 MRI of head ordered for cognitive decline, but no acute symptoms change in last 4-months per caregiver report that correlate with stroke symptoms. 2023 024 [email or web address] [facility], [address], [place], [address], 02/02/2024 08:16:45 US, echocardi ogram - Pt. with 01/19/2024 incidenta l finding of lacunar infarct on Brain MRI. Pt.withou t known A-fib, but does have extensive smoking history. 2023 024 [email or web address] [facility], [address], [place], [address], 03/09/2024 14:42:08 CT, chest, w/o contrast - Pt, 73- with 45 pack year history with chronic cough of 4-mos duration and 9 lbs of unexplain ed weight loss in 2-months in setting of normal appetite. Would like to rule out malignanc y of lungs as cause of weight loss. She has not had any LDCT that her prior record indicates . 2023 024 [email or web address] [facility], [address], [place], [address], 03/10/2024 10:39:10 Medication Orders atorvasta tin 20 mg tablet 2023 024 [email or web address] [facility] #45381, [address] [place] [address], [id number], 07/01/2024 11:33:22 aspirin 81 mg tablet,de layed release 2023 024 NUNO [facility] #19543, [address], [place], [id number], 12/11/2023 12:17:14 metoprolo l tartrate 25 mg tablet 2023 024 [facility] #70545, [address], [place], [id number], 12/11/2023 12:17:59 sertralin e 25 mg tablet 2023 024 [facility] #45559, [address], [place], [id number], 12/11/2023 12:17:32 Ventolin HFA 90 mcg/actua tion aerosol inhaler 2023 024 [facility] #94623, [address], [place], [id number], 01/28/2024 18:04:41 cefuroxim e axetil 250 mg tablet 2023 024 [email or web address] [facility], [address] [place], [address], 07/01/2024 11:35:09 cefuroxim e axetil 250 mg tablet 2023 024 [email or web address] Not available 07/01/2024 11:35:09 Patient TargetsNo targets recorded. Patient Instructions Encounter Date Encounter Id Patient Instructions Last Modified By Organization Details Last Modified Time 11/01/2023 [id number] cough: care instructions Not available 11/03/2023 08:43:38 05/14/2024 [id number] 1. I am concerne d that her symptoms may be related to a urinary tract infection thus I have gone ahead and given her her first tablet of antibiotic tonight and the remaining doses were sent to the [facility] in [place]. She will take this medication morning and [...] Abnormal Flag Note LastModifiedBy Organization Detail LastModifiedTime 11/01/19 24 11/01/2023 COMPR EHENS JR METAB OLIC PANEL calcium 9.9 mg/dL 8.5-10 .1 normal Not Available [address] [place], [address] 11/01/2023 16:28:50 11/01/19 24 11/01/2023 COMPR EHENS JR METAB OLIC PANEL glucose 125 mg/dL 74-106 high Not Available Marilin oliver [address] [place], [address] 11/01/2023 16:28:50 11/01/19 24 11/01/2023 COMPR EHENS JR METAB OLIC PANEL BUN 23 mg/dL 7-18 high Not Available Marilin oliver [address] [place], [address] 11/01/2023 16:28:50 11/01/19 24 11/01/2023 COMPR EHENS JR METAB OLIC PANEL creatinine 1.5 mg/dL 0.55-1 .02 high Not Available [address] [place], [address] 11/01/2023 16:28:50 11/01/19 24 11/01/2023 COMPR EHENS JR METAB OLIC PANEL estimated GFR 36.57 mL/min /1.73m 2 The eGFR is calcu lated from a serum creat inine using the CKD-E PI 2020 equat ion. Other varia bles requi red for the equat ion are gende r and age; this equat ion does not inclu de a race coeff icien t. This equat ion has simil ar overa ll perfo rmanc e to previ ous equat ions excep t value s may diffe r, in parti cular , in patie nts with highe r value s of eGFR and young er-ag ed adult s. Not Available [address] [place], [address] 11/01/2023 16:28:50 11/01/19 24 11/01/2023 COMPR EHENS JR METAB OLIC PANEL total protein 7.2 g/dL 6.4-8. 2 normal Not Available [address] [place], [address] 11/01/2023 16:28:50 11/01/19 24 11/01/2023 COMPR EHENS JR METAB OLIC PANEL albumin 3.8 g/dL 3.4-5. 0 normal Not Available [address] [place], [address] 11/01/2023 16:28:50 11/01/19 24 11/01/2023 COMPR EHENS JR METAB OLIC PANEL bilirubin, total 0.5 mg/dL 0.2-1. 0 normal Not Available [address] [place], [address] 11/01/2023 16:28:50 11/01/19 24 11/01/2023 COMPR EHENS JR METAB OLIC PANEL alk phos 123 U/L 46-116 high Not Available [address] [place], [address] 11/01/2023 16:28:50 11/01/19 24 11/01/2023 COMPR EHENS JR METAB OLIC PANEL sodium 143 mmol/ L 136-14 5 normal Not Available [address] [place], [address] 11/01/2023 16:28:50 11/01/19 24 11/01/2023 COMPR EHENS JR METAB OLIC PANEL potassium 4.0 mmol/ L 3.5-5. 1 normal Not Available [address] [place], [address] 11/01/2023 16:28:50 11/01/19 24 11/01/2023 COMPR EHENS JR METAB OLIC PANEL chloride 106 mmol/ L 98-107 normal Not Available [address] [place], [address] 11/01/2023 16:28:50 11/01/19 24 11/01/2023 COMPR EHENS JR METAB OLIC PANEL CO2 22.7 mmol/ L 21.0-3 2.0 normal Not Available [address] [place], [address] 11/01/2023 16:28:50 11/01/19 24 11/01/2023 COMPR EHENS JR METAB OLIC PANEL anion gap 14.3 mmol/ L 3-11 high Not Available [address] [place], [address] 11/01/2023 16:28:50 11/01/19 24 11/01/2023 COMPR EHENS JR METAB OLIC PANEL AST 13 U/L 15-37 low Not Available Marilin oliver [address] [place], [address] 11/01/2023 16:28:50 11/01/19 24 11/01/2023 COMPR EHENS JR METAB OLIC PANEL ALT 16 U/L 14-59 normal Not Available Marilin oliver [address] [place], [address] 11/01/2023 16:28:50 12/11/19 24 12/11/2023 HEMOG LOBIN A1C hemoglobin A1C 5.7 % <5.7 Refer ence Range s <5.7 Lara l 5.7-6 .4% Predi abete s 6.5% or great er Diagn ostic for diabe raisa (if confi rmed) Refer ences : 1. Ameri can Diabe raisa Assoc iatio n. Clas sific ation and Diagn osis of Diabe raisa. Diabe raisa Care 2019 Sep;4 2(Sup pleme nt 1):S1 3-s28 . Not Available [address] [place], [address] 12/11/2023 17:10:46 12/11/19 24 12/11/2023 COMPR EHENS JR METAB OLIC PANEL calcium 9.5 mg/dL 8.5-10 .1 normal Not Available [address] [place], [address] 12/11/2023 17:36:51 12/11/19 24 12/11/2023 COMPR EHENS JR METAB OLIC PANEL glucose 131 mg/dL 74-106 high Not Available Marilin oliver [address] [place], [address] 12/11/2023 17:36:51 12/11/19 24 12/11/2023 COMPR EHENS JR METAB OLIC PANEL BUN 32 mg/dL 7-18 high Not Available Marilin oliver [address] [place], [address] 12/11/2023 17:36:51 12/11/19 24 12/11/2023 COMPR EHENS JR METAB OLIC PANEL creatinine 1.6 mg/dL 0.55-1 .02 high Not Available [address] [place], [address] 12/11/2023 17:36:51 12/11/19 24 12/11/2023 COMPR EHENS JR METAB OLIC PANEL estimated GFR 33.84 mL/min /1.73m 2 The eGFR is calcu lated from a serum creat inine using the CKD-E PI 2020 equat ion. Other varia bles requi red for the equat ion are gende r and age; this equat ion does not inclu de a race coeff icien t. This equat ion has simil ar overa ll perfo rmanc e to previ ous equat ions excep t value s may diffe r, in parti cular , in patie nts with highe r value s of eGFR and young er-ag ed adult s. Not Available [address] [place], [address] 12/11/2023 17:36:51 12/11/19 24 12/11/2023 COMPR EHENS JR METAB OLIC PANEL total protein 7.3 g/dL 6.4-8. 2 normal Not Available [address] [place], [address] 12/11/2023 17:36:51 12/11/19 24 12/11/2023 COMPR EHENS JR METAB OLIC PANEL albumin 4.1 g/dL 3.4-5. 0 normal Not Available [address] [place], [address] 12/11/2023 17:36:51 12/11/19 24 12/11/2023 COMPR EHENS JR METAB OLIC PANEL bilirubin, total 0.2 mg/dL 0.2-1. 0 normal Not Available [address] [place], [address] 12/11/2023 17:36:51 12/11/19 24 12/11/2023 COMPR EHENS JR METAB OLIC PANEL alk phos 94 U/L 46-116 normal Not Available [address] [place], [address] 12/11/2023 17:36:51 12/11/19 24 12/11/2023 COMPR EHENS JR METAB OLIC PANEL sodium 145 mmol/ L 136-14 5 normal Not Available [address] [place], [address] 12/11/2023 17:36:51 12/11/19 24 12/11/2023 COMPR EHENS JR METAB OLIC PANEL potassium 3.7 mmol/ L 3.5-5. 1 normal Not Available [address] [place], [address] 12/11/2023 17:36:51 12/11/19 24 12/11/2023 COMPR EHENS JR METAB OLIC PANEL chloride 109 mmol/ L 98-107 high Not Available [address] [place], [address] 12/11/2023 17:36:51 12/11/19 24 12/11/2023 COMPR EHENS JR METAB OLIC PANEL CO2 21.6 mmol/ L 21.0-3 2.0 normal Not Available [address] [place], [address] 12/11/2023 17:36:51 12/11/19 24 12/11/2023 COMPR EHENS JR METAB OLIC PANEL anion gap 14.4 mmol/ L 3-11 high Not Available [address] [place], [address] 12/11/2023 17:36:51 12/11/19 24 12/11/2023 COMPR EHENS JR METAB OLIC PANEL AST 12 U/L 15-37 low Not Available [address] [place], [address] 12/11/2023 17:36:51 12/11/19 24 12/11/2023 COMPR EHENS JR METAB OLIC PANEL ALT 15 U/L 14-59 normal Not Available Marilin oliver [address] [place], [address] 12/11/2023 17:36:51 12/11/19 24 12/11/2023 LIPID 2 cholesterol 175 mg/dL <200 Not Available Yamil marrero [address] [place], [address] 12/11/2023 17:36:51 12/11/19 24 12/11/2023 LIPID 2 triglyceride 235 mg/dL <150 high Not Available [address] [place], [address] 12/11/2023 17:36:51 12/11/19 24 12/11/2023 LIPID 2 HDL cholesterol 43 mg/dL 40-60 Not Available Kristi saravia [address] [place], [address] 12/11/2023 17:36:51 12/11/19 24 12/11/2023 LIPID 2 calculated LDL 85 mg/dL <100 Natio nal Marielle stero l Educa tion Progr am (NCEP -ATPI II) class ifica tions : Marielle stero l <200 mg/dL Shad able Marielle stero l 200-2 39 mg/dL Borde rline High Marielle stero l >or=2 40 mg/dL High HDL <40 mg/dL Low HDL >or=6 0 mg/dL High LDL <100 mg/dL Optim al LDL 100-1 29 mg/dL Near Optim al/Ab ove Optim al LDL 130-1 59 mg/dL Borde rline High LDL 160-1 89 mg/dL High LDL >or=1 90 mg/dL Very High *The above refer ence range is for adult s 18 years or older . Not Available [address] [place], [address] 12/11/2023 17:36:51 12/11/19 24 12/11/2023 MAGNE SIUM magnesium 1.9 mg/dL 1.8-2. 4 normal Not Available [address] [place], [address] 12/11/2023 17:36:52 12/11/19 24 12/11/2023 TSH TSH 1.35 uIU/m L 0.36-3 .74 normal Not Available [address] [place], [address] 12/11/2023 17:36:52 12/11/19 24 12/11/2023 VITAM IN B12 vitamin B12 214 pg/mL 193-98 6 normal Not Available [address] [place], [address] 12/11/2023 17:36:52 12/11/19 24 12/11/2023 FOLAT E folate 7.1 NG/mL 8.6-20 .0 low Not Available [address] [place], [address] 12/11/2023 17:36:53 12/11/19 24 12/12/2023 HIV-1 /2 AG AB SCREE N HIV-1/2 Ag Ab screen Negati ve negati ve If acute HIV-1 infec tion is suspe cted in a high risk patie nt, submi t plasm a speci men for HIV-1 RNA quant itati on test. Fourt h Gener ation assay perfo rmed on the [facility] ur XPT. Test perfo rmed or refer red by [facility] [address], [place] [address] Not Available [address] [place], [address] 12/12/2023 12:53:07 12/11/19 24 12/12/2023 SYPHI LIS SEROL OGY (RPR) syphilis serology (RPR) Negati ve negati ve Test perfo rmed or refer red by [facility] [address], [place] [address] Not Available [address] [place], [address] 12/12/2023 12:53:08 01/28/20 24 01/28/2024 COMPL ETE BLOOD COUNT W/DIF F WBC 8.22 10_3/ uL 4.4-10 .8 normal Not Available [address] [place], [address] 01/28/2024 19:08:00 01/28/20 24 01/28/2024 COMPL ETE BLOOD COUNT W/DIF F RBC 4.10 10_6/ uL 3.93-5 .22 normal Not Available [address] [place], [address] 01/28/2024 19:08:00 01/28/20 24 01/28/2024 COMPL ETE BLOOD COUNT W/DIF F HGB 12.6 g/dL 11.2-1 5.7 normal Not Available [address] [place], [address] 01/28/2024 19:08:00 01/28/20 24 01/28/2024 COMPL ETE BLOOD COUNT W/DIF F HCT 36.2 % 36.0-4 6.0 normal Not Available [address] [place], [address] 01/28/2024 19:08:00 01/28/20 24 01/28/2024 COMPL ETE BLOOD COUNT W/DIF F MCV 88 fL 80-95 normal Not Available [address] [place], [address] 01/28/2024 19:08:00 01/28/20 24 01/28/2024 COMPL ETE BLOOD COUNT W/DIF F MCH 30.7 pg 27.0-3 3.0 normal Not Available [address] [place], [address] 01/28/2024 19:08:00 01/28/20 24 01/28/2024 COMPL ETE BLOOD COUNT W/DIF F MCHC 34.8 % 32.0-3 6.0 normal Not Available [address] [place], [address] 01/28/2024 19:08:00 01/28/20 24 01/28/2024 COMPL ETE BLOOD COUNT W/DIF F RDW 12.6 % 11.7-1 4.6 normal Not Available [address] [place], [address] 01/28/2024 19:08:00 01/28/20 24 01/28/2024 COMPL ETE BLOOD COUNT W/DIF F platelet count 241 10_3/ uL 130-40 0 normal Not Available [address] [place], [address] 01/28/2024 19:08:00 01/28/20 24 01/28/2024 COMPL ETE BLOOD COUNT W/DIF F MPV 11.8 fL 8.0-11 .0 high Not Available [address] [place], [address] 01/28/2024 19:08:00 01/28/20 24 01/28/2024 COMPL ETE BLOOD COUNT W/DIF F neutrophils % 54.7 % Not Available [address] [place], [address] 01/28/2024 19:08:00 01/28/20 24 01/28/2024 COMPL ETE BLOOD COUNT W/DIF F lymphocytes % 35.4 % Not Available [address] [place], [address] 01/28/2024 19:08:00 01/28/20 24 01/28/2024 COMPL ETE BLOOD COUNT W/DIF F monocytes % 6.9 % Not Available [address] [place], [address] 01/28/2024 19:08:00 01/28/20 24 01/28/2024 COMPL ETE BLOOD COUNT W/DIF F eosinophils % 2.2 % Not Available [address] [place], [address] 01/28/2024 19:08:00 01/28/20 24 01/28/2024 COMPL ETE BLOOD COUNT W/DIF F basophils % 0.6 % Not Available [address] [place], [address] 01/28/2024 19:08:00 01/28/20 24 01/28/2024 COMPL ETE BLOOD COUNT W/DIF F immature grans % 0.2 % Not Available [address] [place], [address] 01/28/2024 19:08:00 01/28/20 24 01/28/2024 COMPL ETE BLOOD COUNT W/DIF F nucleated RBC 0.0 % 0.0-0. 3 normal Not Available [address] [place], [address] 01/28/2024 19:08:00 01/28/20 24 01/28/2024 COMPL ETE BLOOD COUNT W/DIF F absolute neutrophil count 4.49 10_3/ uL 1.2-6. 7 normal Not Available [address] [place], [address] 01/28/2024 19:08:00 01/28/20 24 01/28/2024 COMPL ETE BLOOD COUNT W/DIF F absolute lymphocyte count 2.91 10_3/ uL 1.2-3. 4 normal Not Available [address] [place], [address] 01/28/2024 19:08:00 01/28/20 24 01/28/2024 COMPL ETE BLOOD COUNT W/DIF F absolute monocyte count 0.57 10_3/ uL 0.1-0. 8 normal Not Available [address] [place], [address] 01/28/2024 19:08:00 01/28/20 24 01/28/2024 COMPL ETE BLOOD COUNT W/DIF F absolute eosinophil count 0.18 10_3/ uL 0.0-0. 7 normal Not Available [address] [place], [address] 01/28/2024 19:08:00 01/28/20 24 01/28/2024 COMPL ETE BLOOD COUNT W/DIF F absolute basophil count 0.05 10_3/ uL 0.0-0. 2 normal Not Available [address] [place], [address] 01/28/2024 19:08:00 01/28/20 24 01/28/2024 COMPR EHENS JR METAB OLIC PANEL calcium 9.6 mg/dL 8.5-10 .1 normal Not Available [address] [place], [address] 01/28/2024 20:28:19 01/28/20 24 01/28/2024 COMPR EHENS JR METAB OLIC PANEL glucose 148 mg/dL 74-106 high Not Available Marilin oliver [address] [place], [address] 01/28/2024 20:28:19 01/28/20 24 01/28/2024 COMPR EHENS JR METAB OLIC PANEL BUN 25 mg/dL 7-18 high Not Available Marilin oliver [address] [place], [address] 01/28/2024 20:28:19 01/28/20 24 01/28/2024 COMPR EHENS JR METAB OLIC PANEL creatinine 1.6 mg/dL 0.55-1 .02 high Not Available [address] [place], [address] 01/28/2024 20:28:19 01/28/20 24 01/28/2024 COMPR EHENS JR METAB OLIC PANEL estimated GFR 33.84 mL/min /1.73m 2 The eGFR is calcu lated from a serum creat inine using the CKD-E PI 2020 equat ion. Other varia bles requi red for the equat ion are gende r and age; this equat ion does not inclu de a race coeff icien t. This equat ion has simil ar overa ll perfo rmanc e to previ ous equat ions excep t value s may diffe r, in parti cular , in patie nts with highe r value s of eGFR and young er-ag ed adult s. Not Available [address] [place], [address] 01/28/2024 20:28:19 01/28/20 24 01/28/2024 COMPR EHENS JR METAB OLIC PANEL total protein 7.3 g/dL 6.4-8. 2 normal Not Available [address] [place], [address] 01/28/2024 20:28:19 01/28/20 24 01/28/2024 COMPR EHENS JR METAB OLIC PANEL albumin 4.1 g/dL 3.4-5. 0 normal Not Available [address] [place], [address] 01/28/2024 20:28:19 01/28/20 24 01/28/2024 COMPR EHENS JR METAB OLIC PANEL bilirubin, total 0.3 mg/dL 0.2-1. 0 normal Not Available [address] [place], [address] 01/28/2024 20:28:19 01/28/20 24 01/28/2024 COMPR EHENS JR METAB OLIC PANEL alk phos 108 U/L 46-116 normal Not Available [address] [place], [address] 01/28/2024 20:28:19 01/28/20 24 01/28/2024 COMPR EHENS JR METAB OLIC PANEL sodium 142 mmol/ L 136-14 5 normal Not Available [address] [place], [address] 01/28/2024 20:28:19 01/28/20 24 01/28/2024 COMPR EHENS JR METAB OLIC PANEL potassium 3.9 mmol/ L 3.5-5. 1 normal Not Available [address] [place], [address] 01/28/2024 20:28:19 01/28/20 24 01/28/2024 COMPR EHENS JR METAB OLIC PANEL chloride 105 mmol/ L 98-107 normal Not Available [address] [place], [address] 01/28/2024 20:28:19 01/28/20 24 01/28/2024 COMPR EHENS JR METAB OLIC PANEL CO2 21.6 mmol/ L 21.0-3 2.0 normal Not Available [address] [place], [address] 01/28/2024 20:28:19 01/28/20 24 01/28/2024 COMPR EHENS JR METAB OLIC PANEL anion gap 15.4 mmol/ L 3-11 high Not Available [address] [place], [address] 01/28/2024 20:28:19 01/28/20 24 01/28/2024 COMPR EHENS JR METAB OLIC PANEL AST 14 U/L 15-37 low Not Available Marilin oliver [address] [place], [address] 01/28/2024 20:28:19 01/28/20 24 01/28/2024 COMPR EHENS JR METAB OLIC PANEL ALT 18 U/L 14-59 normal Not Available Marilin [address], [address] 01/28/2024 20:28:19 01/28/20 24 01/28/2024 TSH TSH 1.23 uIU/m L 0.36-3 .74 normal Not Available [address] [place], [address] 01/28/2024 20:28:20 01/28/20 24 01/28/2024 FREE T4 free T4 0.93 NG/dL 0.76-1 .46 normal Not Available [address] [place], [address] 01/28/2024 20:28:20 05/14/20 24 05/14/2024 MICRO SCOPI C FINDI NGS WBC 10-20 hpf 0-5 abnormal Not Available [facility] (Registration ) [address] [place] [address] [place], [address], 05/14/2024 21:28:28 05/14/20 24 05/14/2024 MICRO SCOPI C FINDI NGS RBC 3-5 hpf 0-2 abnormal Not Available [facility] (Registration ) [address] [place] [address] [place], [address], 05/14/2024 21:28:28 05/14/20 24 05/14/2024 MICRO SCOPI C FINDI NGS epithelial cells Modera te hpf negati ve Not Available [facility] (Registration ) [address] [place] [address] [place], [address], 05/14/2024 21:28:28 05/14/20 24 05/14/2024 MICRO SCOPI C FINDI NGS bacteria Modera te hpf negati ve Not Available [facility] (Registration ) [address] [place] [address] [place], [id number], 05/14/2024 21:28:28 05/14/20 24 05/14/2024 MICRO SCOPI C FINDI NGS crystals Negati ve hpf negati ve Not Available [facility] (Registration ) [address] [place] [address] [place], [address], 05/14/2024 21:28:28 05/14/20 24 05/14/2024 MICRO SCOPI C FINDI NGS mucus Negati ve negati ve Not Available [facility] (Registration ) [address] [place] [address] [place], [address], 05/14/2024 21:28:28 05/14/20 24 05/14/2024 MICRO SCOPI C FINDI NGS casts Negati ve lpf negati ve Not Available [facility] (Registration ) [address] [place] [address] [address] [facility] [place], [address], 05/14/2024 21:28:28 05/14/20 24 05/14/2024 MICRO SCOPI C FINDI NGS C S indicated? C S Done As Ordere d Not Available [facility] (Registration ) [address] [place] [address] [place], [address], 05/14/2024 21:28:28 05/14/20 24 05/16/2024 URINE CULTU RE urine culture Urine Cultu re Proba ble conta minat ed colle ction APPEA DEBBIE Mixed Gram Posit jr Haylee COLON Y COUNT Not Available [facility] (Registration ) [address] [place] [address] [place], [address], 05/16/2024 10:35:04 05/14/20 24 05/16/2024 URINE CULTU RE urine culture colon ies/m L 50,00 0 - 100,0 00 Day 1 Resul t ISOLA RAISA BELOW O:GPF M (ORGA NISM ID: 1.1) - GRAM POSIT JR HAYLEE ,MIXE D Urine Cultu re (ORGA NISM ID: 1.1) - COLON Y COUNT (ORGA NISM ID: 1.1) - 50,00 0 - 100,0 00 Not Available [facility] (Registration ) [address] [place] [address] [place], [address], 05/16/2024 10:35:04 05/14/20 24 05/17/2024 URINE CULTU RE urine culture Urine Cultu re Proba ble conta minat ed colle ction APPEA DEBBIE Mixed Gram Posit jr Haylee APPEA DEBBIE Mixed Gram Posit jr Haylee COLON Y COUNT Not Available [facility] (Registration ) [address] [place] [address] , [place], [address], 05/17/2024 10:00:22 05/14/20 24 05/17/2024 URINE CULTU RE urine culture colon ies/m L 50,00 0 - 100,0 00 COLON Y COUNT >100, 000 Day 1 Resul t ISOLA RAISA BELOW Day 2 Resul t ISOLA RAISA BELOW O:GPF M (ORGA NISM ID: 1.1) - GRAM POSIT JR HAYLEE ,MIXE D Urine Cultu re (ORGA NISM ID: 1.1) - COLON Y COUNT (ORGA NISM ID: 1.1) - >100, 000 Not Available [facility] (Registration ) [address] [place] [address] [place], [address], 05/17/2024 10:00:22 05/14/20 24 05/14/2024 urina lysis , dipst ick Leukocytes Trace Not Available [address], [address], 05/14/2024 20:24:45 05/14/20 24 05/14/2024 urina lysis , dipst ick Nitrite negati ve Not Available [address], [address], 05/14/2024 20:24:45 05/14/20 24 05/14/2024 urina lysis , dipst ick Urobilinogen .2 Not Available [address], [place], [address], 05/14/2024 20:24:45 05/14/20 24 05/14/2024 urina lysis , dipst ick Protein 100 Not Available [address], [place], [address], 05/14/2024 20:24:45 05/14/20 24 05/14/2024 urina lysis , dipst ick pH 5.0 Not Available [address], [place], [address], 05/14/2024 20:24:45 05/14/20 24 05/14/2024 urina lysis , dipst ick Blood Negati ve Not Available [address], [place], [address], 05/14/2024 20:24:45 05/14/20 24 05/14/2024 urina lysis , dipst ick Specific [place] 1.015 Not Available [address], [place], [address], 05/14/2024 20:24:45 05/14/20 24 05/14/2024 urina lysis , dipst ick Ketone Trace Not Available [address], [place], [address], 05/14/2024 20:24:45 05/14/20 24 05/14/2024 urina lysis , dipst ick Bilirubin Small Not Available [address], [place], [address], 05/14/2024 20:24:45 05/14/2015 0505/14/2024 urina lysis , dipst ick Glucose Negati ve Not Available [address], [place], [address], 05/14/2024 20:24:45 05/14/20 24 05/14/2024 urina lysis , dipst ick Appearance Clear Not Available [address], [place], [address], 05/14/2024 20:24:45 05/14/20 24 05/14/2024 urina lysis , dipst ick Color Dark Yellow Not Available [address], [place], [address], 05/14/2024 20:24:45 06/12/20 24 06/12/2024 URINE DRUG SCREE N ([facility] ) methadone Negati ve negati ve Not Available [address] [facility] [place], [address] 06/12/2024 20:21:43 06/12/20 24 06/12/2024 URINE DRUG SCREE N ([facility] ) benzodiazepi sharad Negati ve negati ve Benzo diaze pines are exten sivel y metab olize d and the paren t compo und may not be detec liz in urine . If clini shea suspi cion is high, pleas e notif y Lab for send- out testi ng. Not Available [address] [place] [facility] [place], [address] 06/12/2024 20:21:43 06/12/20 24 06/12/2024 URINE DRUG SCREE N ([facility] ) cocaine Negati ve negati ve Not Available [address] [place], [address] 06/12/2024 20:21:43 06/12/20 24 06/12/2024 URINE DRUG SCREE N ([facility] ) amphetamines Negati ve negati ve Not Available [address] [place], [address] 06/12/2024 20:21:43 06/12/20 24 06/12/2024 URINE DRUG SCREE N ([facility] ) tetrahydroca nnabinol Negati ve negati ve Not Available [address] [place], [address] 06/12/2024 20:21:43 06/12/20 24 06/12/2024 URINE DRUG SCREE N ([facility] ) opiates Negati ve negati ve Not Available [address] [place], [address] 06/12/2024 20:21:43 06/12/20 24 06/12/2024 URINE DRUG SCREE N ([facility] ) barbiturates Negati ve negati ve Not Available [address] [place], [address] 06/12/2024 20:21:43 06/12/20 24 06/12/2024 URINE DRUG SCREE N ([facility] ) tricyclic antidepressa nts Negati ve negati ve T his test is not suita ble for legal purpo ses Cutof f liana ntrat ions for each drug class are: MTD 300 ng/mL BZO 200 ng/mL SHAYY 300 ng/mL * AMP 1000 ng/mL * THC 50 ng/mL OPI 300 ng/mL BAR 200 ng/mL TCA 1000 ng/mL *Francisco mmend ed scree edelmira cutof f liana ntrat ions by the subst ance abuse and menta l healt h servi perlita admin istra tion. This test provi christian preli minar y resul ts. A more speci fic alter sharon metho d such as GC/MS is the prefe rred confi rmato ry metho d. Notif y the Labor atory withi n 72 hours of repor t date if you shad e confi rmati on. Presc ribed medic ation s may give posit jr resul ts and must be consi dered prior to inter preta tion of these resul ts. Not Available [address] [place], [address] 06/12/2024 20:21:43 06/12/20 24 06/12/2024 MICRO SCOPI C FINDI NGS WBC Negati ve hpf 0-5 Not Available [address] [place], [address] 06/12/2024 20:10:41 06/12/20 24 06/12/2024 MICRO SCOPI C FINDI NGS RBC Negati ve hpf 0-2 Not Available [address] [place], [address] 06/12/2024 20:10:41 06/12/20 24 06/12/2024 MICRO SCOPI C FINDI NGS epithelial cells Rare hpf negati ve Not Available [address] [place], [address] 06/12/2024 20:10:41 06/12/20 24 06/12/2024 MICRO SCOPI C FINDI NGS bacteria Rare hpf negati ve Not Available [address] [place], [address] 06/12/2024 20:10:41 06/12/20 24 06/12/2024 MICRO SCOPI C FINDI NGS crystals Negati ve hpf negati ve Not Available [address] [place], [address] 06/12/2024 20:10:41 06/12/20 24 06/12/2024 MICRO SCOPI C FINDI NGS mucus Negati ve negati ve Not Available [address] [place], [address] 06/12/2024 20:10:41 06/12/20 24 06/12/2024 MICRO SCOPI C FINDI NGS casts Negati ve lpf negati ve Not Available [address] [place], [address] 06/12/2024 20:10:41 06/12/20 24 06/12/2024 MICRO SCOPI C FINDI NGS C S indicated? No Not Available [address] [place], [address] 06/12/2024 20:10:41 06/12/20 24 06/12/2024 URINA LYSIS color Yellow yellow Not Available Marilin oliver [address] [place], [address] 06/12/2024 20:10:40 06/12/20 24 06/12/2024 URINA LYSIS clarity Clear clear Not Available Marilin oliver [address] [place], [address] 06/12/2024 20:10:40 06/12/20 24 06/12/2024 URINA LYSIS specific gravity 1.025 1.005- 1.025 normal Not Available [address] [place], [address] 06/12/2024 20:10:40 06/12/20 24 06/12/2024 URINA LYSIS pH 5.5 5-8 normal Not Available Marilin oliver [address] [place], [address] 06/12/2024 20:10:40 06/12/20 24 06/12/2024 URINA LYSIS leukocyte esterase Negati ve negati ve Not Available [address] [place], [address] 06/12/2024 20:10:40 06/12/20 24 06/12/2024 URINA LYSIS nitrite Negati ve negati ve Not Available [address] [place], [address] 06/12/2024 20:10:40 06/12/20 24 06/12/2024 URINA LYSIS protein 30 mg/dL neg-tr erendira abnormal Not Available [address] [place], [address] 06/12/2024 20:10:40 06/12/20 24 06/12/2024 URINA LYSIS glucose Negati ve mg/dL negati ve Not Available [address] [place], [address] 06/12/2024 20:10:40 06/12/20 24 06/12/2024 URINA LYSIS ketones Negati ve mg/dL negati ve Not Available [address] [place], [address] 06/12/2024 20:10:40 06/12/20 24 06/12/2024 URINA LYSIS urobilinogen 0.2 mg/dL up to 0.2 Not Available [address] [place], [address] 06/12/2024 20:10:40 06/12/20 24 06/12/2024 URINA LYSIS bilirubin Negati ve negati ve Not Available [address] [place], [address] 06/12/2024 20:10:40 06/12/20 24 06/12/2024 URINA LYSIS blood Negati ve negati ve Not Available [address] [place], [address] 06/12/2024 20:10:40 06/12/20 24 06/12/2024 URINA LYSIS color Yellow yellow Not Available Marilin oliver [address] [place], [address] 06/12/2024 20:04:40 06/12/20 24 06/12/2024 URINA LYSIS clarity Clear clear Not Available Marilin oliver [address] [place], [address] 06/12/2024 20:04:40 06/12/20 24 06/12/2024 URINA LYSIS specific gravity 1.025 1.005- 1.025 normal Not Available [address] [place], [address] 06/12/2024 20:04:40 06/12/20 24 06/12/2024 URINA LYSIS pH 5.5 5-8 normal Not Available Marilin oliver [address] [place], [address] 06/12/2024 20:04:40 06/12/20 24 06/12/2024 URINA LYSIS leukocyte esterase Negati ve negati ve Not Available [address] [place], [address] 06/12/2024 20:04:40 06/12/20 24 06/12/2024 URINA LYSIS nitrite Negati ve negati ve Not Available [address] [place], [address] 06/12/2024 20:04:40 06/12/20 24 06/12/2024 URINA LYSIS protein 30 mg/dL neg-tr erendira abnormal Not Available [address] [place], [address] 06/12/2024 20:04:40 06/12/20 24 06/12/2024 URINA LYSIS glucose Negati ve mg/dL negati ve Not Available [address] [place], [address] 06/12/2024 20:04:40 06/12/20 24 06/12/2024 URINA LYSIS ketones Negati ve mg/dL negati ve Not Available [address] [place], [address] 06/12/2024 20:04:40 06/12/20 24 06/12/2024 URINA LYSIS urobilinogen 0.2 mg/dL up to 0.2 Not Available [address] [place], [address] 06/12/2024 20:04:40 06/12/20 24 06/12/2024 URINA LYSIS bilirubin Negati ve negati ve Not Available [address] [place], [address] 06/12/2024 20:04:40 06/12/20 24 06/12/2024 URINA LYSIS blood Negati ve negati ve Not Available [address] [place], [address] 06/12/2024 20:04:40 06/12/20 24 06/12/2024 ACETA MINOP HEN acetaminophe n < 2 ug/mL 10-30 Not Available Yamil marrero [address] [place], [address] 06/12/2024 18:20:32 06/12/20 24 06/12/2024 LIPAS E lipase 71 U/L 16-77 normal Not Available Marilin oliver [address] [place], [address] 06/12/2024 18:55:40 06/12/20 24 06/12/2024 TSH (W/RE F FT4) TSH (w/ref FT4) 1.49 uIU/m L 0.36-3 .74 normal Not Available [address] [place], [address] 06/12/2024 18:55:40 06/12/2006/12/2024 MAGNE SIUM magnesium 2.0 mg/dL 1.8-2. 4 normal Not Available [address] [place], [address] 06/12/2024 18:55:39 06/12/2006/12/2024 ETHYL ALCOH OL ethyl alcohol < 3.0 mg/dL <10 ETOH Refer ence Range = <10 mg/dL Legal Limit of Intox icati on is 80 mg/dL This test is inten ded only for Medic al purpo ses. Divid e resul t by 1000 to conve rt to %(w/v ) Not Available [address] [place], [address] 06/12/2024 18:55:39 06/12/2006/12/2024 CREAT INE KINAS E creatine kinase 81 U/L 26-192 normal Not Available Yamil marrero [address] [place], [address] 06/12/2024 18:55:38 06/12/20 24 06/12/2024 COMPR EHENS JR METAB OLIC PANEL calcium 9.5 mg/dL 8.5-10 .1 normal Not Available [address] [place], [address] 06/12/2024 18:55:38 06/12/20 24 06/12/2024 COMPR EHENS JR METAB OLIC PANEL glucose 162 mg/dL 74-106 high Not Available Marilin oliver [address] [place], [address] 06/12/2024 18:55:38 06/12/20 24 06/12/2024 COMPR EHENS JR METAB OLIC PANEL BUN 37 mg/dL 7-18 high Not Available Marilin oliver [address] [place], [address] 06/12/2024 18:55:38 06/12/20 24 06/12/2024 COMPR EHENS JR METAB OLIC PANEL creatinine 1.7 mg/dL 0.55-1 .02 high Not Available [address] [place], [address] 06/12/2024 18:55:38 06/12/20 24 06/12/2024 COMPR EHENS JR METAB OLIC PANEL estimated GFR 31.47 mL/min /1.73M 2 The eGFR is calcu lated from a serum creat inine using the CKD-E PI 2020 equat ion. Other varia bles requi red for the equat ion are gende r and age; this equat ion does not inclu de a race coeff icien t. This equat ion has simil ar overa ll perfo rmanc e to previ ous equat ions excep t value s may diffe r, in parti cular , in patie nts with highe r value s of eGFR and young er-ag ed adult s. Not Available [address] [place], [address] 06/12/2024 18:55:38 06/12/20 24 06/12/2024 COMPR EHENS JR METAB OLIC PANEL total protein 7.4 g/dL 6.4-8. 2 normal Not Available [address] [place], [address] 06/12/2024 18:55:38 06/12/20 24 06/12/2024 COMPR EHENS JR METAB OLIC PANEL albumin 3.9 g/dL 3.4-5. 0 normal Not Available [address] [place], [address] 06/12/2024 18:55:38 06/12/20 24 06/12/2024 COMPR EHENS JR METAB OLIC PANEL bilirubin, total 0.52 mg/dL 0.2-1. 0 normal Not Available [address] [place], [address] 06/12/2024 18:55:38 06/12/20 24 06/12/2024 COMPR EHENS JR METAB OLIC PANEL alk phos 101 U/L 46-116 normal Not Available [address] [place], [address] 06/12/2024 18:55:38 06/12/20 24 06/12/2024 COMPR EHENS JR METAB OLIC PANEL sodium 144 mmol/ L 136-14 5 normal Not Available [address] [place], [address] 06/12/2024 18:55:38 06/12/20 24 06/12/2024 COMPR EHENS JR METAB OLIC PANEL potassium 3.6 mmol/ L 3.5-5. 1 normal Not Available [address] [place], [address] 06/12/2024 18:55:38 06/12/20 24 06/12/2024 COMPR EHENS JR METAB OLIC PANEL chloride 108 mmol/ L 98-107 high Not Available [address] [place], [address] 06/12/2024 18:55:38 06/12/20 24 06/12/2024 COMPR EHENS JR METAB OLIC PANEL CO2 23.8 mmol/ L 21.0-3 2.0 normal Not Available [address] [place], [address] 06/12/2024 18:55:38 06/12/20 24 06/12/2024 COMPR EHENS JR METAB OLIC PANEL anion gap 12.2 mmol/ L 3-11 high Not Available [address] [place], [address] 06/12/2024 18:55:38 06/12/20 24 06/12/2024 COMPR EHENS JR METAB OLIC PANEL AST 15 U/L 15-37 normal Not Available Marilin oliver [address] [place], [address] 06/12/2024 18:55:38 06/12/20 24 06/12/2024 COMPR EHENS JR METAB OLIC PANEL ALT 15 U/L 14-59 normal Not Available Marilin oliver [address] [place], [address] 06/12/2024 18:55:38 06/12/20 24 06/12/2024 COVID /FLU/ RSV PCR source Nasoph arynx Not Available Tiffani pina [address] [place], [address] 06/12/2024 18:35:33 06/12/20 24 06/12/2024 COVID /FLU/ RSV PCR covid-19 PCR Negati ve negati ve This test has not been FDA clear ed or appro natalie. This test has been autho rized by the FDA under an Emerg ency Use Autho rizat ion for use by autho rized labor atori es. This test has been autho rized only for detec tion of nucle ic acid from the 2019 novel coron a virus (2018nCoV ), influ umberto A, influ umberto B, and respi rator y syncy tial virus (RSV) , and not for the detec tion of any other virus es or patho gens. This test is only autho rized for the durat ion of the decla ratio n that circu mstan perlita exist justi fying the autho rizat ion of emerg ency use of in vitro diagn ostic tests for detec tion and/o r diagn osis of nCo under secti on 564(b )(1) of Act, 21 U.S.C ??? 360bb b-3(b )(1), unles s the autho rizat ion is termi nated or revok ed soone r. Negat jr resul ts do not precl ude 2019- nCoV, influ umberto, and/o r RSV infec tion and shoul d not be used as the sole basis for treat ment or other patie nt manag ement decis ions. Negat jr resul ts must be combi tay with clini shea obser vatio ns, patie nt histo ry, and epide miolo gical infor oanh nAbhishek Testi ng perfo rmed at [facility] (CLIA #[id number]) on the [employer] id Gene[employer] pert. Not Available [address] [place], [address] 06/12/2024 18:35:33 06/12/20 24 06/12/2024 COVID /FLU/ RSV PCR influenza A PCR Negati ve negati ve Not Available [address] [place], [address] 06/12/2024 18:35:33 06/12/20 24 06/12/2024 COVID /FLU/ RSV PCR influenza B PCR Negati ve negati ve Not Available [address] [place], [address] 06/12/2024 18:35:33 06/12/20 24 06/12/2024 COVID /FLU/ RSV PCR RSV PCR Negati ve negati ve Not Available [address] [place], [address] 06/12/2024 18:35:33 06/12/20 24 06/12/2024 PTT ACTIV ATED PTT activated 22.1 sec 23.6-3 2.8 low Hepar in Thera peuti c Range for PTT = 52-84 secon ds New Hepar in Thera peuti c Range 10/28 Not Available [address] [place], [address] 06/12/2024 18:13:30 06/12/20 24 06/12/2024 PROTH ROMBI N TIME prothrombin time 9.9 sec 9.1-11 .1 normal Not Available [address] [place], [address] 06/12/2024 18:13:30 06/12/20 24 06/12/2024 PROTH ROMBI N TIME INR 1.0 0.9-1. 1 normal Recom luis a d INR thera peuti c range s for orall y admin ister ed drugs are as follo ws: -Dustin dard Inten sity 2.0 to 3.0 -High er Inten sity 3.0 to 4.5 Not Available [address] [place], [address] 06/12/2024 18:13:30 06/12/20 24 06/12/2024 VALENCIA IA ammonia < 10 umol/ L 11-32 low Not Available [address] [place], [address] 06/12/2024 18:10:29 06/12/20 24 06/12/2024 COMPL ETE BLOOD COUNT W/DIF F WBC 7.41 10_3/ uL 4.4-10 .8 normal Not Available [address] [place], [address] 06/12/2024 18:08:30 06/12/20 24 06/12/2024 COMPL ETE BLOOD COUNT W/DIF F RBC 3.82 10_6/ uL 3.93-5 .22 low Not Available [address] [place], [address] 06/12/2024 18:08:30 06/12/20 24 06/12/2024 COMPL ETE BLOOD COUNT W/DIF F HGB 11.9 g/dL 11.2-1 5.7 normal Not Available [address] [place], [address] 06/12/2024 18:08:30 06/12/20 24 06/12/2024 COMPL ETE BLOOD COUNT W/DIF F HCT 34.8 % 36.0-4 6.0 low Not Available [address] [place], [address] 06/12/2024 18:08:30 06/12/20 24 06/12/2024 COMPL ETE BLOOD COUNT W/DIF F MCV 91 fL 80-95 normal Not Available [address] [place], [address] 06/12/2024 18:08:30 06/12/20 24 06/12/2024 COMPL ETE BLOOD COUNT W/DIF F MCH 31.2 pg 27.0-3 3.0 normal Not Available [address] [place], [address] 06/12/2024 18:08:30 06/12/20 24 06/12/2024 COMPL ETE BLOOD COUNT W/DIF F MCHC 34.2 % 32.0-3 6.0 normal Not Available [address] [place], [address] 06/12/2024 18:08:30 06/12/20 24 06/12/2024 COMPL ETE BLOOD COUNT W/DIF F RDW 12.2 % 11.7-1 4.6 normal Not Available [address] [place], [address] 06/12/2024 18:08:30 06/12/20 24 06/12/2024 COMPL ETE BLOOD COUNT W/DIF F platelet count 211 10_3/ uL 130-40 0 normal Not Available [address] [place], [address] 06/12/2024 18:08:30 06/12/20 24 06/12/2024 COMPL ETE BLOOD COUNT W/DIF F MPV 10.8 fL 8.0-11 .0 normal Not Available [address] [place], [address] 06/12/2024 18:08:30 06/12/20 24 06/12/2024 COMPL ETE BLOOD COUNT W/DIF F neutrophils % 58.3 % Not Available [address] [place], [address] 06/12/2024 18:08:30 06/12/20 24 06/12/2024 COMPL ETE BLOOD COUNT W/DIF F lymphocytes % 33.3 % Not Available [address] [place], [address] 06/12/2024 18:08:30 06/12/20 24 06/12/2024 COMPL ETE BLOOD COUNT W/DIF F monocytes % 5.0 % Not Available [address] [place], [address] 06/12/2024 18:08:30 06/12/20 24 06/12/2024 COMPL ETE BLOOD COUNT W/DIF F eosinophils % 2.3 % Not Available [address] [place], [address] 06/12/2024 18:08:30 06/12/20 24 06/12/2024 COMPL ETE BLOOD COUNT W/DIF F basophils % 0.8 % Not Available [address] [place], [address] 06/12/2024 18:08:30 06/12/20 24 06/12/2024 COMPL ETE BLOOD COUNT W/DIF F immature grans % 0.3 % Not Available [address] [place], [address] 06/12/2024 18:08:30 06/12/20 24 06/12/2024 COMPL ETE BLOOD COUNT W/DIF F nucleated RBC 0.0 % 0.0-0. 3 normal Not Available [address] [place], [address] 06/12/2024 18:08:30 06/12/20 24 06/12/2024 COMPL ETE BLOOD COUNT W/DIF F absolute neutrophil count 4.32 10_3/ uL 1.2-6. 7 normal Not Available [address] [place], [address] 06/12/2024 18:08:30 06/12/20 24 06/12/2024 COMPL ETE BLOOD COUNT W/DIF F absolute lymphocyte count 2.47 10_3/ uL 1.2-3. 4 normal Not Available [address] [place], [address] 06/12/2024 18:08:30 06/12/20 24 06/12/2024 COMPL ETE BLOOD COUNT W/DIF F absolute monocyte count 0.37 10_3/ uL 0.1-0. 8 normal Not Available [address] [place], [address] 06/12/2024 18:08:30 06/12/20 24 06/12/2024 COMPL ETE BLOOD COUNT W/DIF F absolute eosinophil count 0.17 10_3/ uL 0.0-0. 7 normal Not Available [address] [place], [address] 06/12/2024 18:08:30 06/12/20 24 06/12/2024 COMPL ETE BLOOD COUNT W/DIF F absolute basophil count 0.06 10_3/ uL 0.0-0. 2 normal Not Available [address] [place], [address] 06/12/2024 18:08:30 06/12/20 24 06/12/2024 VENOU S BLOOD GAS pH (venous) 7.30 7.31-7 .41 low Not Available [address] [place], [address] 06/12/2024 17:56:28 06/12/20 24 06/12/2024 VENOU S BLOOD GAS pCO2 (venous) 45 mmHg 41-51 normal Not Available Driggsng[facility]en [address] [place], [address] 06/12/2024 17:56:28 06/12/20 24 06/12/2024 VENOU S BLOOD GAS pO2 (venous) 31 mmHg Not Available [address] [place], [address] 06/12/2024 17:56:28 06/12/20 24 06/12/2024 VENOU S BLOOD GAS TCO2 (venous) 21 mmol/ L 24-29 low Not Available [address] [place], [address] 06/12/2024 17:56:28 06/12/20 24 06/12/2024 VENOU S BLOOD GAS HCO3 (venous) 22 mmol/ L 23-28 low Not Available [address] [place], [address] 06/12/2024 17:56:28 06/12/20 24 06/12/2024 VENOU S BLOOD GAS BE (venous) -4 mmol/ L -2-3 low Not Available [address] [place], [address] 06/12/2024 17:56:28 06/12/20 24 06/12/2024 VENOU S BLOOD GAS O2 sat (venous) 57 % Not Available Driggsnguyen marrero [address] [place], [address] 06/12/2024 17:56:28 06/12/20 24 06/12/2024 TSH (W/RE F FT4) TSH (w/ref FT4) 1.49 uIU/m L 0.36-3 .74 normal Not Available [address] [place], [address] 06/12/2024 18:45:41 06/12/20 24 06/12/2024 MAGNE SIUM magnesium 2.0 mg/dL 1.8-2. 4 normal Not Available [address] [place], [address] 06/12/2024 18:45:41 06/12/20 24 06/12/2024 ETHYL ALCOH OL ethyl alcohol < 3.0 mg/dL <10 ETOH Refer ence Range = <10 mg/dL Legal Limit of Intox icati on is 80 mg/dL This test is inten ded only for Medic al purpo ses. Divid e resul t by 1000 to conve rt to %(w/v ) Not Available [address] [place], [address] 06/12/2024 18:45:40 06/12/20 24 06/12/2024 CREAT INE KINAS E creatine kinase 81 U/L 26-192 normal Not Available Yamil marrero [address] [place], [address] 06/12/2024 18:45:40 06/12/20 24 06/12/2024 COMPR EHENS JR METAB OLIC PANEL calcium 9.5 mg/dL 8.5-10 .1 normal Not Available [address] [place], [address] 06/12/2024 18:45:39 06/12/20 24 06/12/2024 COMPR EHENS JR METAB OLIC PANEL glucose 162 mg/dL 74-106 high Not Available Marilin oliver [address] [place], [address] 06/12/2024 18:45:39 06/12/20 24 06/12/2024 COMPR EHENS JR METAB OLIC PANEL BUN 37 mg/dL 7-18 high Not Available Marilin oliver [address] [place], [address] 06/12/2024 18:45:39 06/12/20 24 06/12/2024 COMPR EHENS JR METAB OLIC PANEL creatinine 1.7 mg/dL 0.55-1 .02 high Not Available [address] [place], [address] 06/12/2024 18:45:39 06/12/20 24 06/12/2024 COMPR EHENS JR METAB OLIC PANEL estimated GFR 31.47 mL/min /1.73M 2 The eGFR is calcu lated from a serum creat inine using the CKD-E PI 2020 equat ion. Other varia bles requi red for the equat ion are gende r and age; this equat ion does not inclu de a race coeff icien t. This equat ion has simil ar overa ll perfo rmanc e to previ ous equat ions excep t value s may diffe r, in parti cular , in patie nts with highe r value s of eGFR and young er-ag ed adult s. Not Available [address] [place], [address] 06/12/2024 18:45:39 06/12/20 24 06/12/2024 COMPR EHENS JR METAB OLIC PANEL total protein 7.4 g/dL 6.4-8. 2 normal Not Available [address] [place], [address] 06/12/2024 18:45:39 06/12/20 24 06/12/2024 COMPR EHENS JR METAB OLIC PANEL albumin 3.9 g/dL 3.4-5. 0 normal Not Available [address] [place], [address] 06/12/2024 18:45:39 06/12/20 24 06/12/2024 COMPR EHENS JR METAB OLIC PANEL bilirubin, total 0.52 mg/dL 0.2-1. 0 normal Not Available [address] [place], [address] 06/12/2024 18:45:39 06/12/20 24 06/12/2024 COMPR EHENS JR METAB OLIC PANEL alk phos 101 U/L 46-116 normal Not Available [address] [place], [address] 06/12/2024 18:45:39 06/12/20 24 06/12/2024 COMPR EHENS JR METAB OLIC PANEL sodium 144 mmol/ L 136-14 5 normal Not Available [address] [place], [address] 06/12/2024 18:45:39 06/12/20 24 06/12/2024 COMPR EHENS JR METAB OLIC PANEL potassium 3.6 mmol/ L 3.5-5. 1 normal Not Available [address] [place], [address] 06/12/2024 18:45:39 06/12/20 24 06/12/2024 COMPR EHENS JR METAB OLIC PANEL chloride 108 mmol/ L 98-107 high Not Available [address] [place], [address] 06/12/2024 18:45:39 06/12/20 24 06/12/2024 COMPR EHENS JR METAB OLIC PANEL CO2 23.8 mmol/ L 21.0-3 2.0 normal Not Available [address] [place], [address] 06/12/2024 18:45:39 06/12/20 24 06/12/2024 COMPR EHENS JR METAB OLIC PANEL anion gap 12.2 mmol/ L 3-11 high Not Available [address] [place], [address] 06/12/2024 18:45:39 06/12/20 24 06/12/2024 COMPR EHENS JR METAB OLIC PANEL AST 15 U/L 15-37 normal Not Available [address] [place], [address] 06/12/2024 18:45:39 06/12/20 24 06/12/2024 COMPR EHENS JR METAB OLIC PANEL ALT 15 U/L 14-59 normal Not Available [address] [place], [address] 06/12/2024 18:45:39 06/12/20 24 06/12/2024 TSH (W/RE F FT4) TSH (w/ref FT4) 1.49 uIU/m L 0.36-3 .74 normal Not Available [address] [place], [address] 06/12/2024 18:45:36 06/12/20 24 06/12/2024 MAGNE SIUM magnesium 2.0 mg/dL 1.8-2. 4 normal Not Available [address] [place], [address] 06/12/2024 18:45:36 06/12/20 24 06/12/2024 ETHYL ALCOH OL ethyl alcohol < 3.0 mg/dL <10 ETOH Refer ence Range = <10 mg/dL Legal Limit of Intox icati on is 80 mg/dL This test is inten ded only for Medic al purpo ses. Divid e resul t by 1000 to conve rt to %(w/v ) Not Available [address] [place], [address] 06/12/2024 18:45:35 06/12/20 24 06/12/2024 CREAT INE KINAS E creatine kinase 81 U/L 26-192 normal Not Available [address] [place], [address] 06/12/2024 18:45:35 06/12/20 24 06/12/2024 COMPR EHENS JR METAB OLIC PANEL calcium 9.5 mg/dL 8.5-10 .1 normal Not Available [address] [place], [address] 06/12/2024 18:45:34 06/12/20 24 06/12/2024 COMPR EHENS JR METAB OLIC PANEL glucose 162 mg/dL 74-106 high Not Available Marilin oliver [address] [place], [address] 06/12/2024 18:45:34 06/12/20 24 06/12/2024 COMPR EHENS JR METAB OLIC PANEL BUN 37 mg/dL 7-18 high Not Available Marilin oliver [address] [place], [address] 06/12/2024 18:45:34 06/12/20 24 06/12/2024 COMPR EHENS JR METAB OLIC PANEL creatinine 1.7 mg/dL 0.55-1 .02 high Not Available [address] [place], [address] 06/12/2024 18:45:34 06/12/20 24 06/12/2024 COMPR EHENS JR METAB OLIC PANEL estimated GFR 31.47 mL/min /1.73M 2 The eGFR is calcu lated from a serum creat inine using the CKD-E PI 2020 equat ion. Other varia bles requi red for the equat ion are gende r and age; this equat ion does not inclu de a race coeff icien t. This equat ion has simil ar overa ll perfo rmanc e to previ ous equat ions excep t value s may diffe r, in parti cular , in patie nts with highe r value s of eGFR and young er-ag ed adult s. Not Available [address] [place], [address] 06/12/2024 18:45:34 06/12/20 24 06/12/2024 COMPR EHENS JR METAB OLIC PANEL total protein 7.4 g/dL 6.4-8. 2 normal Not Available [address] [place], [address] 06/12/2024 18:45:34 06/12/20 24 06/12/2024 COMPR EHENS JR METAB OLIC PANEL albumin 3.9 g/dL 3.4-5. 0 normal Not Available [address] [place], [address] 06/12/2024 18:45:34 06/12/20 24 06/12/2024 COMPR EHENS JR METAB OLIC PANEL bilirubin, total 0.52 mg/dL 0.2-1. 0 normal Not Available [address] [place], [address] 06/12/2024 18:45:34 06/12/20 24 06/12/2024 COMPR EHENS JR METAB OLIC PANEL alk phos 101 U/L 46-116 normal Not Available [address] [place], [address] 06/12/2024 18:45:34 06/12/20 24 06/12/2024 COMPR EHENS JR METAB OLIC PANEL sodium 144 mmol/ L 136-14 5 normal Not Available [address] [place], [address] 06/12/2024 18:45:34 06/12/20 24 06/12/2024 COMPR EHENS JR METAB OLIC PANEL potassium 3.6 mmol/ L 3.5-5. 1 normal Not Available [address] [place], [address] 06/12/2024 18:45:34 06/12/20 24 06/12/2024 COMPR EHENS JR METAB OLIC PANEL chloride 108 mmol/ L 98-107 high Not Available [address] [place], [address] 06/12/2024 18:45:34 06/12/20 24 06/12/2024 COMPR EHENS JR METAB OLIC PANEL CO2 23.8 mmol/ L 21.0-3 2.0 normal Not Available [address] [place], [address] 06/12/2024 18:45:34 06/12/20 24 06/12/2024 COMPR EHENS JR METAB OLIC PANEL anion gap 12.2 mmol/ L 3-11 high Not Available [address] [place], [address] 06/12/2024 18:45:34 06/12/20 24 06/12/2024 COMPR EHENS JR METAB OLIC PANEL AST 15 U/L 15-37 normal Not Available [address] [place], [address] 06/12/2024 18:45:34 06/12/20 24 06/12/2024 COMPR EHENS JR METAB OLIC PANEL ALT 15 U/L 14-59 normal Not Available [address] [place], [address] 06/12/2024 18:45:34 06/12/20 24 06/12/2024 CREAT INE KINAS E creatine kinase 81 U/L 26-192 normal Not Available [facility] [address] [place], [address] 06/12/2024 18:21:32 06/12/20 24 06/12/2024 COMPR EHENS JR METAB OLIC PANEL total protein 7.4 g/dL 6.4-8. 2 normal Not Available [address] [place], [address] 06/12/2024 18:21:31 06/12/20 24 06/12/2024 COMPR EHENS JR METAB OLIC PANEL bilirubin, total 0.52 mg/dL 0.2-1. 0 normal Not Available [address] [place], [address] 06/12/2024 18:21:31 06/12/20 24 06/12/2024 COMPR EHENS JR METAB OLIC PANEL sodium 144 mmol/ L 136-14 5 normal Not Available [address] [place], [address] 06/12/2024 18:21:31 06/12/20 24 06/12/2024 COMPR EHENS JR METAB OLIC PANEL potassium 3.6 mmol/ L 3.5-5. 1 normal Not Available [address] [place], [address] 06/12/2024 18:21:31 06/12/20 24 06/12/2024 COMPR EHENS JR METAB OLIC PANEL chloride 108 mmol/ L 98-107 high Not Available [address] [place], [address] 06/12/2024 18:21:31 06/12/20 24 06/12/2024 COMPR EHENS JR METAB OLIC PANEL CO2 23.8 mmol/ L 21.0-3 2.0 normal Not Available [address] [place], [address] 06/12/2024 18:21:31 06/12/20 24 06/12/2024 COMPR EHENS JR METAB OLIC PANEL anion gap 12.2 mmol/ L 3-11 high Not Available [address] [place], [address] 06/12/2024 18:21:31 06/13/20 24 06/13/2024 MAGNE SIUM magnesium 1.8 mg/dL 1.8-2. 4 normal Not Available [address] [place], [address] 06/13/2024 07:03:39 06/13/20 24 06/13/2024 COMPR EHENS JR METAB OLIC PANEL calcium 9.0 mg/dL 8.5-10 .1 normal Not Available [address] [place], [address] 06/13/2024 07:03:38 06/13/20 24 06/13/2024 COMPR EHENS JR METAB OLIC PANEL glucose 104 mg/dL 74-106 normal Not Available Marilin oliver [address] [place], [address] 06/13/2024 07:03:38 06/13/20 24 06/13/2024 COMPR EHENS JR METAB OLIC PANEL BUN 34 mg/dL 7-18 high Not Available Marilin oliver [address] [place], [address] 06/13/2024 07:03:38 06/13/20 24 06/13/2024 COMPR EHENS JR METAB OLIC PANEL creatinine 1.6 mg/dL 0.55-1 .02 high Not Available [address] [place], [address] 06/13/2024 07:03:38 06/13/20 24 06/13/2024 COMPR EHENS JR METAB OLIC PANEL estimated GFR 33.84 mL/min /1.73M 2 The eGFR is calcu lated from a serum creat inine using the CKD-E PI 2020 equat ion. Other varia bles requi red for the equat ion are gende r and age; this equat ion does not inclu de a race coeff icien t. This equat ion has simil ar overa ll perfo rmanc e to previ ous equat ions excep t value s may diffe r, in parti cular , in patie nts with highe r value s of eGFR and young er-ag ed adult s. Not Available [address] [place], [address] 06/13/2024 07:03:38 06/13/20 24 06/13/2024 COMPR EHENS JR METAB OLIC PANEL total protein 6.7 g/dL 6.4-8. 2 normal Not Available [address] [place], [address] 06/13/2024 07:03:38 06/13/20 24 06/13/2024 COMPR EHENS JR METAB OLIC PANEL albumin 3.5 g/dL 3.4-5. 0 normal Not Available [address] [place], [address] 06/13/2024 07:03:38 06/13/20 24 06/13/2024 COMPR EHENS JR METAB OLIC PANEL bilirubin, total 0.40 mg/dL 0.2-1. 0 normal Not Available [address] [place], [address] 06/13/2024 07:03:38 06/13/20 24 06/13/2024 COMPR EHENS JR METAB OLIC PANEL alk phos 91 U/L 46-116 normal Not Available [address] [place], [address] 06/13/2024 07:03:38 06/13/20 24 06/13/2024 COMPR EHENS JR METAB OLIC PANEL sodium 138 mmol/ L 136-14 5 normal Not Available [address] [place], [address] 06/13/2024 07:03:38 06/13/20 24 06/13/2024 COMPR EHENS JR METAB OLIC PANEL potassium 3.4 mmol/ L 3.5-5. 1 low Not Available [address] [place], [address] 06/13/2024 07:03:38 06/13/20 24 06/13/2024 COMPR EHENS JR METAB OLIC PANEL chloride 106 mmol/ L 98-107 normal Not Available [address] [place], [address] 06/13/2024 07:03:38 06/13/20 24 06/13/2024 COMPR EHENS JR METAB OLIC PANEL CO2 22.6 mmol/ L 21.0-3 2.0 normal Not Available [address] [place], [address] 06/13/2024 07:03:38 06/13/20 24 06/13/2024 COMPR EHENS JR METAB OLIC PANEL anion gap 9.4 mmol/ L 3-11 normal Not Available [address] [place], [address] 06/13/2024 07:03:38 06/13/20 24 06/13/2024 COMPR EHENS JR METAB OLIC PANEL AST 14 U/L 15-37 low Not Available Marilin oliver [address] [place], [address] 06/13/2024 07:03:38 06/13/20 24 06/13/2024 COMPR EHENS JR METAB OLIC PANEL ALT 12 U/L 14-59 low Not Available Marilin oliver [address] [place], [address] 06/13/2024 07:03:38 06/13/20 24 06/13/2024 COMPL ETE BLOOD COUNT NO DIFF WBC 8.48 10_3/ uL 4.4-10 .8 normal Not Available [address] [place], [address] 06/13/2024 06:47:37 06/13/20 24 06/13/2024 COMPL ETE BLOOD COUNT NO DIFF RBC 3.48 10_6/ uL 3.93-5 .22 low Not Available [address] [place], [address] 06/13/2024 06:47:37 06/13/20 24 06/13/2024 COMPL ETE BLOOD COUNT NO DIFF HGB 10.8 g/dL 11.2-1 5.7 low Not Available [address] [place], [address] 06/13/2024 06:47:37 06/13/20 24 06/13/2024 COMPL ETE BLOOD COUNT NO DIFF HCT 31.5 % 36.0-4 6.0 low Not Available [address] [place], [address] 06/13/2024 06:47:37 06/13/20 24 06/13/2024 COMPL ETE BLOOD COUNT NO DIFF MCV 91 fL 80-95 normal Not Available Marilin oliver [address] [place], [address] 06/13/2024 06:47:37 06/13/20 24 06/13/2024 COMPL ETE BLOOD COUNT NO DIFF MCH 31.0 pg 27.0-3 3.0 normal Not Available [address] [place], [address] 06/13/2024 06:47:37 06/13/20 24 06/13/2024 COMPL ETE BLOOD COUNT NO DIFF MCHC 34.3 % 32.0-3 6.0 normal Not Available [address] [place], [address] 06/13/2024 06:47:37 06/13/20 24 06/13/2024 COMPL ETE BLOOD COUNT NO DIFF RDW 12.1 % 11.7-1 4.6 normal Not Available [address] [place], [address] 06/13/2024 06:47:37 06/13/20 24 06/13/2024 COMPL ETE BLOOD COUNT NO DIFF platelet count 200 10_3/ uL 130-40 0 normal Not Available [address] [place], [address] 06/13/2024 06:47:37 06/13/20 24 06/13/2024 COMPL ETE BLOOD COUNT NO DIFF MPV 10.5 fL 8.0-11 .0 normal Not Available [address] [place], [address] 06/13/2024 06:47:37 06/16/20 24 06/16/2024 COMPL ETE BLOOD COUNT W/DIF F WBC 10.78 10_3/ uL 4.4-10 .8 normal Not Available [address] [place], [address] 06/16/2024 15:02:01 06/16/20 24 06/16/2024 COMPL ETE BLOOD COUNT W/DIF F RBC 3.86 10_6/ uL 3.93-5 .22 low Not Available [address] [place], [address] 06/16/2024 15:02:01 06/16/20 24 06/16/2024 COMPL ETE BLOOD COUNT W/DIF F HGB 11.8 g/dL 11.2-1 5.7 normal Not Available [address] [place], [address] 06/16/2024 15:02:01 06/16/20 24 06/16/2024 COMPL ETE BLOOD COUNT W/DIF F HCT 35.1 % 36.0-4 6.0 low Not Available [address] [place], [address] 06/16/2024 15:02:01 06/16/20 24 06/16/2024 COMPL ETE BLOOD COUNT W/DIF F MCV 91 fL 80-95 normal Not Available Marilin [address] [place], [address] 06/16/2024 15:02:01 06/16/20 24 06/16/2024 COMPL ETE BLOOD COUNT W/DIF F MCH 30.6 pg 27.0-3 3.0 normal Not Available [address] [place], [address] 06/16/2024 15:02:01 06/16/20 24 06/16/2024 COMPL ETE BLOOD COUNT W/DIF F MCHC 33.6 % 32.0-3 6.0 normal Not Available [address] [place], [address] 06/16/2024 15:02:01 06/16/20 24 06/16/2024 COMPL ETE BLOOD COUNT W/DIF F RDW 12.5 % 11.7-1 4.6 normal Not Available [address] [place], [address] 06/16/2024 15:02:01 06/16/20 24 06/16/2024 COMPL ETE BLOOD COUNT W/DIF F platelet count 256 10_3/ uL 130-40 0 normal Not Available [address] [place], [address] 06/16/2024 15:02:01 06/16/20 24 06/16/2024 COMPL ETE BLOOD COUNT W/DIF F MPV 10.2 fL 8.0-11 .0 normal Not Available [address] [place], [address] 06/16/2024 15:02:01 06/16/20 24 06/16/2024 COMPL ETE BLOOD COUNT W/DIF F neutrophils % 61.1 % Not Available Yamil marrero [address] [place], [address] 06/16/2024 15:02:01 06/16/20 24 06/16/2024 COMPL ETE BLOOD COUNT W/DIF F lymphocytes % 29.4 % Not Available [address] [place], [address] 06/16/2024 15:02:01 06/16/20 24 06/16/2024 COMPL ETE BLOOD COUNT W/DIF F monocytes % 6.9 % Not Available [address] [place], [address] 06/16/2024 15:02:01 06/16/20 24 06/16/2024 COMPL ETE BLOOD COUNT W/DIF F eosinophils % 1.5 % Not Available [address] [place], [address] 06/16/2024 15:02:01 06/16/20 24 06/16/2024 COMPL ETE BLOOD COUNT W/DIF F basophils % 0.6 % Not Available [address] [place], [address] 06/16/2024 15:02:01 06/16/20 24 06/16/2024 COMPL ETE BLOOD COUNT W/DIF F immature grans % 0.5 % Not Available [address] [place], [address] 06/16/2024 15:02:01 06/16/20 24 06/16/2024 COMPL ETE BLOOD COUNT W/DIF F nucleated RBC 0.0 % 0.0-0. 3 normal Not Available [address] [place], [address] 06/16/2024 15:02:01 06/16/20 24 06/16/2024 COMPL ETE BLOOD COUNT W/DIF F absolute neutrophil count 6.59 10_3/ uL 1.2-6. 7 normal Not Available [address] [place], [address] 06/16/2024 15:02:01 06/16/20 24 06/16/2024 COMPL ETE BLOOD COUNT W/DIF F absolute lymphocyte count 3.17 10_3/ uL 1.2-3. 4 normal Not Available [address] [place], [address] 06/16/2024 15:02:01 06/16/20 24 06/16/2024 COMPL ETE BLOOD COUNT W/DIF F absolute monocyte count 0.74 10_3/ uL 0.1-0. 8 normal Not Available [address] [place], [address] 06/16/2024 15:02:01 06/16/20 24 06/16/2024 COMPL ETE BLOOD COUNT W/DIF F absolute eosinophil count 0.16 10_3/ uL 0.0-0. 7 normal Not Available [address] [place], [address] 06/16/2024 15:02:01 06/16/20 24 06/16/2024 COMPL ETE BLOOD COUNT W/DIF F absolute basophil count 0.07 10_3/ uL 0.0-0. 2 normal Not Available [address] [place], [address] 06/16/2024 15:02:01 06/16/20 24 06/16/2024 BASIC METAB OLIC PANEL calcium 9.1 mg/dL 8.5-10 .1 normal Not Available [address] [place], [address] 06/16/2024 14:45:56 06/16/2006/16/2024 BASIC METAB OLIC PANEL glucose 126 mg/dL 74-106 high Not Available Marilin oliver [address] [place], [address] 06/16/2024 14:45:56 06/16/2006/16/2024 BASIC METAB OLIC PANEL BUN 26 mg/dL 7-18 high Not Available Marilin oliver [address] [place], [address] 06/16/2024 14:45:56 06/16/2006/16/2024 BASIC METAB OLIC PANEL creatinine 1.7 mg/dL 0.55-1 .02 high Not Available [address] [place], [address] 06/16/2024 14:45:56 06/16/2006/16/2024 BASIC METAB OLIC PANEL estimated GFR 31.47 mL/min /1.73M 2 The eGFR is calcu lated from a serum creat inine using the CKD-E PI 2020 equat ion. Other varia bles requi red for the equat ion are gende r and age; this equat ion does not inclu de a race coeff icien t. This equat ion has simil ar overa ll perfo rmanc e to previ ous equat ions excep t value s may diffe r, in parti cular , in patie nts with highe r value s of eGFR and young er-ag ed adult s. Not Available [address] [place], [address] 06/16/2024 14:45:56 06/16/2006/16/2024 BASIC METAB OLIC PANEL sodium 139 mmol/ L 136-14 5 normal Not Available [address] [place], [address] 06/16/2024 14:45:56 06/16/2006/16/2024 BASIC METAB OLIC PANEL potassium 3.4 mmol/ L 3.5-5. 1 low Not Available [address] [place], [address] 06/16/2024 14:45:56 06/16/2006/16/2024 BASIC METAB OLIC PANEL chloride 104 mmol/ L 98-107 normal Not Available [address] [place], [address] 06/16/2024 14:45:56 06/16/2006/16/2024 BASIC METAB OLIC PANEL CO2 25.3 mmol/ L 21.0-3 2.0 normal Not Available [address] [place], [address] 06/16/2024 14:45:56 06/16/2006/16/2024 BASIC METAB OLIC PANEL anion gap 9.7 mmol/ L 3-11 normal Not Available [address] [place], [address] 06/16/2024 14:45:56 06/17/2006/17/2024 BASIC METAB OLIC PANEL calcium 9.0 mg/dL 8.5-10 .1 normal Not Available [address] [place], [address] 06/17/2024 11:32:16 06/17/20 24 06/17/2024 BASIC METAB OLIC PANEL glucose 116 mg/dL 74-106 high Not Available Marilin oliver [address] [place], [address] 06/17/2024 11:32:16 06/17/20 24 06/17/2024 BASIC METAB OLIC PANEL BUN 21 mg/dL 7-18 high Not Available Marilin oliver [address] [place], [address] 06/17/2024 11:32:16 06/17/20 24 06/17/2024 BASIC METAB OLIC PANEL creatinine 1.5 mg/dL 0.55-1 .02 high Not Available [address] [place], [address] 06/17/2024 11:32:16 06/17/20 24 06/17/2024 BASIC METAB OLIC PANEL estimated GFR 36.57 mL/min /1.73M 2 The eGFR is calcu lated from a serum creat inine using the CKD-E PI 2020 equat ion. Other varia bles requi red for the equat ion are gende r and age; this equat ion does not inclu de a race coeff icien t. This equat ion has simil ar overa ll perfo rmanc e to previ ous equat ions excep t value s may diffe r, in parti cular , in patie nts with highe r value s of eGFR and young er-ag ed adult s. Not Available [address] [place], [address] 06/17/2024 11:32:16 06/17/20 24 06/17/2024 BASIC METAB OLIC PANEL sodium 139 mmol/ L 136-14 5 normal Not Available [address] [place], [address] 06/17/2024 11:32:16 06/17/20 24 06/17/2024 BASIC METAB OLIC PANEL potassium 3.3 mmol/ L 3.5-5. 1 low Not Available [address] [place], [address] 06/17/2024 11:32:16 06/17/20 24 06/17/2024 BASIC METAB OLIC PANEL chloride 107 mmol/ L 98-107 normal Not Available [address] [place], [address] 06/17/2024 11:32:16 06/17/20 24 06/17/2024 BASIC METAB OLIC PANEL CO2 21.5 mmol/ L 21.0-3 2.0 normal Not Available [address] [place], [address] 06/17/2024 11:32:16 06/17/20 24 06/17/2024 BASIC METAB OLIC PANEL anion gap 10.5 mmol/ L 3-11 normal Not Available [address] [place], [address] 06/17/2024 11:32:16 06/17/20 24 06/17/2024 HEMOG LOBIN A1C hemoglobin A1C 5.4 % <5.7 Refer ence Range s <5.7 Lara l 5.7-6 .4% Predi abete s 6.5% or great er Diagn ostic for diabe raisa (if confi rmed) Refer ences : 1. [facility]abe ra[facility]. Clas sific ation and Diagn osis of Diabe raisa. Diabe raisa Care 2019 Sep;4 2(Sup pleme nt 1):S1 3-s28 . Not Available [address] [place], [address] 06/17/2024 06:25:25 06/17/20 24 06/17/2024 BASIC METAB OLIC PANEL calcium 9.0 mg/dL 8.5-10 .1 normal Not Available [address] [place], [address] 06/17/2024 05:57:23 06/17/20 24 06/17/2024 BASIC METAB OLIC PANEL glucose 107 mg/dL 74-106 high Not Available Marilin oliver [address] [place], [address] 06/17/2024 05:57:23 06/17/20 24 06/17/2024 BASIC METAB OLIC PANEL BUN 23 mg/dL 7-18 high Not Available Marilin oliver [address] [place], [address] 06/17/2024 05:57:23 06/17/20 24 06/17/2024 BASIC METAB OLIC PANEL creatinine 1.5 mg/dL 0.55-1 .02 high Not Available [address] [place], [address] 06/17/2024 05:57:23 06/17/20 24 06/17/2024 BASIC METAB OLIC PANEL estimated GFR 36.57 mL/min /1.73M 2 The eGFR is calcu lated from a serum creat inine using the CKD-E PI 2020 equat ion. Other varia bles requi red for the equat ion are gende r and age; this equat ion does not inclu de a race coeff icien t. This equat ion has simil ar overa ll perfo rmanc e to previ ous equat ions excep t value s may diffe r, in parti cular , in patie nts with highe r value s of eGFR and young er-ag ed adult s. Not Available [address] [place], [address] 06/17/2024 05:57:23 06/17/20 24 06/17/2024 BASIC METAB OLIC PANEL sodium 141 mmol/ L 136-14 5 normal Not Available [address] [place], [address] 06/17/2024 05:57:23 06/17/20 24 06/17/2024 BASIC METAB OLIC PANEL potassium 2.9 mmol/ L 3.5-5. 1 critical low Criti shea value repor liz to and readb ack from FÉLIX CHU (RN), [place] at 0554 06/17 by LAB.I DOTTIE Not Available [address] [place], [address] 06/17/2024 05:57:23 06/17/20 24 06/17/2024 BASIC METAB OLIC PANEL chloride 109 mmol/ L 98-107 high Not Available [address] [place], [address] 06/17/2024 05:57:23 06/17/20 24 06/17/2024 BASIC METAB OLIC PANEL CO2 20.7 mmol/ L 21.0-3 2.0 low Not Available [address] [place], [address] 06/17/2024 05:57:23 06/17/20 24 06/17/2024 BASIC METAB OLIC PANEL anion gap 11.3 mmol/ L 3-11 high Not Available [address] [place], [address] 06/17/2024 05:57:23 06/17/20 24 06/17/2024 COMPL ETE BLOOD COUNT W/DIF F WBC 8.86 10_3/ uL 4.4-10 .8 normal Not Available [address] [place], [address] 06/17/2024 05:44:23 06/17/20 24 06/17/2024 COMPL ETE BLOOD COUNT W/DIF F RBC 3.36 10_6/ uL 3.93-5 .22 low Not Available [address] [place], [address] 06/17/2024 05:44:23 06/17/20 24 06/17/2024 COMPL ETE BLOOD COUNT W/DIF F HGB 10.4 g/dL 11.2-1 5.7 low Not Available [address] [place], [address] 06/17/2024 05:44:23 06/17/20 24 06/17/2024 COMPL ETE BLOOD COUNT W/DIF F HCT 29.8 % 36.0-4 6.0 low Not Available [address] [place], [address] 06/17/2024 05:44:23 06/17/20 24 06/17/2024 COMPL ETE BLOOD COUNT W/DIF F MCV 89 fL 80-95 normal Not Available Marilin oliver [address] [place], [address] 06/17/2024 05:44:23 06/17/20 24 06/17/2024 COMPL ETE BLOOD COUNT W/DIF F MCH 31.0 pg 27.0-3 3.0 normal Not Available [address] [place], [address] 06/17/2024 05:44:23 06/17/20 24 06/17/2024 COMPL ETE BLOOD COUNT W/DIF F MCHC 34.9 % 32.0-3 6.0 normal Not Available [address] [place], [address] 06/17/2024 05:44:23 06/17/20 24 06/17/2024 COMPL ETE BLOOD COUNT W/DIF F RDW 12.3 % 11.7-1 4.6 normal Not Available [address] [place], [address] 06/17/2024 05:44:23 06/17/20 24 06/17/2024 COMPL ETE BLOOD COUNT W/DIF F platelet count 219 10_3/ uL 130-40 0 normal Not Available [address] [place], [address] 06/17/2024 05:44:23 06/17/20 24 06/17/2024 COMPL ETE BLOOD COUNT W/DIF F MPV 10.5 fL 8.0-11 .0 normal Not Available [address] [place], [address] 06/17/2024 05:44:23 06/17/20 24 06/17/2024 COMPL ETE BLOOD COUNT W/DIF F neutrophils % 51.9 % Not Available [address] [place], [address] 06/17/2024 05:44:23 06/17/20 24 06/17/2024 COMPL ETE BLOOD COUNT W/DIF F lymphocytes % 37.2 % Not Available [address] [place], [address] 06/17/2024 05:44:23 06/17/20 24 06/17/2024 COMPL ETE BLOOD COUNT W/DIF F monocytes % 7.4 % Not Available [address] [place], [address] 06/17/2024 05:44:23 06/17/20 24 06/17/2024 COMPL ETE BLOOD COUNT W/DIF F eosinophils % 2.7 % Not Available [address] [place], [address] 06/17/2024 05:44:23 06/17/20 24 06/17/2024 COMPL ETE BLOOD COUNT W/DIF F basophils % 0.6 % Not Available [address] [place], [address] 06/17/2024 05:44:23 06/17/20 24 06/17/2024 COMPL ETE BLOOD COUNT W/DIF F immature grans % 0.2 % Not Available [address] [place], [address] 06/17/2024 05:44:23 06/17/20 24 06/17/2024 COMPL ETE BLOOD COUNT W/DIF F nucleated RBC 0.0 % 0.0-0. 3 normal Not Available [address] [place], [address] 06/17/2024 05:44:23 06/17/20 24 06/17/2024 COMPL ETE BLOOD COUNT W/DIF F absolute neutrophil count 4.59 10_3/ uL 1.2-6. 7 normal Not Available [address] [place], [address] 06/17/2024 05:44:23 06/17/20 24 06/17/2024 COMPL ETE BLOOD COUNT W/DIF F absolute lymphocyte count 3.30 10_3/ uL 1.2-3. 4 normal Not Available [address] [place], [address] 06/17/2024 05:44:23 06/17/20 24 06/17/2024 COMPL ETE BLOOD COUNT W/DIF F absolute monocyte count 0.66 10_3/ uL 0.1-0. 8 normal Not Available [address] [place], [address] 06/17/2024 05:44:23 06/17/20 24 06/17/2024 COMPL ETE BLOOD COUNT W/DIF F absolute eosinophil count 0.24 10_3/ uL 0.0-0. 7 normal Not Available [address] [place], [address] 06/17/2024 05:44:23 06/17/20 24 06/17/2024 COMPL ETE BLOOD COUNT W/DIF F absolute basophil count 0.05 10_3/ uL 0.0-0. 2 normal Not Available [address] [place], [address] 06/17/2024 05:44:23 01/19/20 24 01/19/2024 MRI imagi ng repor t Patikatie t Name: Martha Payton Unit #: [id number] Loc: DI Orderi ng Provid er: Yulissa Lainez Accoun t #: [id number] Status : REG CLI Primar y Care Provid er: Yulissa Lainez Date of Exam: 12/22 06/15 Sex: F Admiss ion Date: : 1949 Age: 73 Exam(s ) MR BRAIN WO EXAM: MR BRAIN WO CLINIC AL HISTOR Y: POOR SHORT TERM MEMORY ,R41.3 TECHNI QUE: Multip lanar multis equenc e MRI of the brain was perfor med. COMPAR NAHID: No prior exams were availa ble for compar nahid FINDIN GS: CEREBR AL PARENC HYMA: There is no eviden ce of intrac ranial hemorr raul, mass effect , or shift of midlin e struct ures. There are no extra- axial fluid collec tions. Ventri cles are not enlarg ed or shifte d. There is no signif icant focal signal abnorm ality in the cerebe llar hemisp heres. There is a tiny focus of increa sed signal in the right- side of the georgie. Remain lien of the georgie as well as the midbra in are unrema rkable . Focus of signal abnorm ality in the right thalam us noted and there is also abunda nt bilate ral partia lly conflu ent signal abnorm ality in the Alexsandra in supra ventri cular region s consis tent with chroni c small vessel ischem ic change s. There is no associ ated hemorr raul nor surrou nding edema. Howeve r, there is a single small focus of restri cted diffus ion in the left perive ntricu lar white matter consis tent with small lacuna r infarc t at this level which is more acute than the there are multil evel findin gs. No hemorr raul. PITUIT FAM GLAND: No mass nor parase llar abnorm ality. No obviou s abnorm ality in the cavern ous sinuse s. FLOW VOIDS: The expect ed flow void are noted. No eviden ce of obviou s aneury sm nor obviou s vascul ar malfor mation . PARANA CHINO SINUSE S: The visual ized parana chino sinuse s appear unrema rkable . No obviou s findin g ORBITS : No obviou s findin gs. IMPRES BASIL: Althou gh there is abunda nt bilate ral perive ntricu lar signal abnorm ality consis tent chroni c small vessel diseas e, there is also a singul ar tiny focus of restri cted diffus ion in the left perive ntricu lar white matter consis tent with acute lacuna r infarc t, nonhem orrhag ic. DATA REPOSI TORY: Gin torres By: Yulissa Lainez CC: ------ ------ ------ ------ ------ ------ ------ ------ ------ ------ ------ ------ - Dictat ed By: dAen Johnston M.D. 1339 133 Transc ribed By: Vickie RODRIGUEZ,Yessenia gardner 1338 This is privil eged, confid ential inform ation intend ed only for the provid er named. Any use or distri bution by any person other than this provid er is strict ly prohib ited. If you receiv e this report in error, please notify us immedi michellely at and return the origin al report to us at the addres s above. Thank- you. [email or web address] [address] [place], [address] 01/19/2024 15:21:28 01/19/20 24 01/19/2024 MRI, brain , w/o contr ast No observ ation record ed. [email or web address] [address] [place] [address] [place], [address], 01/20/2024 08:49:10 01/19/20 24 01/19/2024 MRI, brain , w/o contr ast No observ ation record ed. [email or web address] [address] [place] [address] [place], [address], 01/20/2024 08:49:24 03/02/20 24 03/02/2024 MRI imagi ng repor t Obdulia t Name: Martha Payton Unit #: [id number] Loc: DI Orderi ng Provid er: Yulissa Lainez Accoun t #: [id number] Status : REG CLI Primar y Care Provid er: Yulissa Lainez Date of Exam: 02/20 10/15 Sex: F Admiss ion Date: : 1949 Age: 73 Exam(s ) MR ANGIO BRAIN WO CLINIC AL HISTOR Y: Lacuna r infarc tion, I63.81 ; cognit jr declin e. 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 COMPAR NAHID: MR MR BRAIN WO from 2023 FINDIN GS: Caroti d Arteri es: No aneury sm, occlus ion or signif icant stenos is. Anteri or Cerebr al Arteri es: Right: No aneury sm, occlus ion or signif icant stenos is. Left: No aneury sm, occlus ion or signif icant stenos is. Middle Cerebr al Arteri es: Right: No aneury sm, occlus ion or signif icant stenos is. Left: No aneury sm, occlus ion or signif icant stenos is. Sliding Joint Maker ior Cerebr al Arteri es: Right: No aneury sm, occlus ion or signif icant stenos is. Left: No aneury sm, occlus ion or signif icant stenos is. The left mortgage field inspector ior cerebr al artery arises from the left mortgage field inspector ior commun icatin g artery which is a normal varian t. Verteb ral Arteri es: Right: No aneury sm, occlus ion or signif icant stenos is. Left: No aneury sm, occlus ion or signif icant stenos is. Basila r Artery : No aneury sm, occlus ion or signif icant stenos is. IMPRES BASIL: No eviden ce of signif icant stenos is or occlus ion on this MR angiog john of the brain. DATA REPOSI TORY: Gin torres By: Yulissa Lainez CC: ------ ------ ------ ------ ------ ------ ------ ------ ------ ------ ------ ------ - Dictat ed By: Satinder Odonnell M.D. 1400 1400 Transc ribed By: Satinder Odonnell 1400 This is privil eged, confid ential inform ation intend ed only for the provid er named. Any use or distri bution by any person other than this provid er is strict ly prohib ited. If you receiv e this report in error, please notify us immedi michellely at [phone] and return the origin al report to us at the addres s above. Thank- you. 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 TECHNI QUE: Multip lanar multis equenc e MRA of the Neck was perfor med. COMPAR NAHID: MR MR BRAIN WO from 2023 FINDIN GS: Common Caroti d: Right: No dissec tion, occlus ion or signif icant stenos is. Left: No dissec tion, occlus ion or signif icant stenos is. Garage Door Technician al Caroti d: Right: No eviden ce of occlus ion or signif icant stenos is. Left: No eviden ce of occlus ion or signif icant stenos is. Grinder Brake Lining al Caroti d: Right: No dissec tion, occlus ion or signif icant stenos is. Left: No dissec tion, occlus ion or signif icant stenos is. 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 Left: No dissec tion, occlus ion or signif icant stenos is. IMPRES BASIL: There is occlus ion of the right verteb ral artery with absenc e of the artery throug hout its entire length . DATA REPOSI TORY: Ordere d By: Yulissa Lainez CC: ------ ------ ------ ------ ------ ------ ------ ------ ------ ------ ------ ------ - Dictat ed By: Satinder Odonnell M.D. 1403 Transc ribed By: Satinder Odonnell 1403 This is privil eged, confid ential inform ation intend ed only for the provid er named. Any use or distri bution by any person other than this provid er is strict ly prohib ited. If you receiv e this report in error, please notify us immedi laurel at [phone] and return the origin al report to us at the addres s above. Thank- you. [email or web address] [facility] [address] [place], [address] 03/03/2024 18:56:46 03/09/20 24 03/09/2024 ultra sound imagi ng repor t Patien t Name: Martha Payton Unit #: [id number] Loc: DI Orderi ng Provid er: Yulissa Lainez hanh Accoun t #: [id number] Status : REG CLI Primar y Care Provid er: Yulissa Lainez Date of Exam: 02/20 05/15 Sex: F Admiss ion Date: : 1949 Age: 73 ------ ------ --- APPROV ED REPORT ------ ------ -- EXAM: Compre hensiv e 2D, Dopple r, and color- flow Echoca rdiogr am Obdulia t Locati on: Out-Pa tient Sonogr apher: Arlene Denise , RDCS (AE) Indica tions: 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 Techni bowen limite d study due to body habitu s smoker . Conclu basil Normal left ventri cular wall thickn ess and chambe r size. Ejecti on fracti on is 55 to 60%. Wall motion is normal Normal right ventri cular size and functi on Both atria are normal in size There are no struct ural valvul ar abnorm alitie s Mild mitral regurg itatio n Estima liz right ventri cular systol ic pressu re is 23 mmHg Wall motion Left Ventri allen The left ventri allen is normal size. The left ventri cular systol ic functi on is normal . The left ventri cular ejecti on fracti on is within the normal range. There is normal left ventri cular wall thickn ess. There is normal LV segmen araceli wall motion . There is no ventri cular septal defect visual ized. LVEF is 55-60% . Right Ventri allen The right ventri allen is normal size. The right ventri cular systol ic functi on is normal . Atria The left atrium size is normal . The right atrium size is normal . The intera trial septum is intact with no eviden ce for an atrial septal defect . Aortic Valve The aortic valve is normal [...] pid regurg itatio n. The RVSP is 22.9mm Hg. Pulmon ic Valve The pulmon fam valve is normal in struct ure. There is no pulmon ic valvul ar stenos is. Trace pulmon ic regurg itatio n. Great Vessel s The aortic root is normal in size. The ascend ing aorta is normal in size. Aortic arch is not well visual ized. IVC is normal in size and collap ses >50% with inspir ation. Perica rdium There is no perica rdial effusi on. 2D Dimens ions IVSD d PLAX 0.83 cm F: 0.6-1. 0 Ao Root d 2.36 cm F: 2.7 - 3.3 LVPW d PLAX 0.80 cm F: 0.6 - 1.0 Ao Asc Diam d 2.83 cm F: 2.3 - 3.1 LVID d PLAX 4.58 cm F: 3.8 - 5.2 LVDs 3.27 cm F: 2.2 - 3.5 LV EF Teichh olz 55.2 % FS 28.63 % LV EDV (Teich ) 96.4 mL LV ESV (Teich ) 43.2 mL M-Mode TAPSE 1.77 cm (M/F) >1.7 Auto EF LV EDV A4C 70.6 mL LV EDV A2C 76.3 mL LV EDV BP 72.9 mL LV ESV A4C 28.3 mL LV ESV A2C 31.0 mL LV ESV BP 29.9 mL LVEF(% ) A4C 59.9 % LVEF(% ) A2C 59.4 % LVEF(% ) BP 59.0 % LV SV A4C 42.3 ml LV SV A2C 45.3 ml LV SV BP 43.0 ml LV CO A4C 2.3 L/min LV CO A2C 2.4 L/min LV CO BP 2.3 L/min HR A4C 54.71 BPM HR A2C 52.40 BPM LV EDV Index (BP) LA Volume LA Length A4C 4.4 cm LA Length A2C 5.4 cm LA Area A4C s 14.55 cm2 LA Area A2C s 17.20 cm2 LA Vol A4C A-L 40.43 mL LA Vol A2C A-L 46.29 mL LA Vol Biplan e A-L 47.8 mL LA Vol/BS A A4C A-L LA Vol/BS A A2C A-L LA Vol/BS A BP A-L 35.1 mL/m2 LA Vol A4C MOD 37.3 mL LA Vol A2C MOD 44.5 mL LA Vol BP MOD 44.9 mL RA Volume RA Area A4C 9.3 cm2 RA ESV A4C (A-L) 19.0mL RA Vol/BS A A4C A-L RA Length A4C 3.9 cm RA ESV A4C (MOD) 18.4mL LV Diasto logy MV E' medial 0.056 (>0.07 m/s) MV E Vmax 1.28 (0.4-1 .3 m/s) MV E/E' MED 22.79 (<14) MV A Vmax 0.90 (0.4-1 .3 m/s) MV E' latera l 0.081 (>0.1 m/s) E/A Ratio 1.4 MV E/E' LAT 15.77 (<14) MV E' Averag e 0.069 m/s MV E/E'(a verage ) 18.64 Aortic Valve AoV Vmax 1.07 m/s LVOT Vmax 0.94 m/s AoV Peak Grad 4.6 mmHg LVOT Peak Grad 3.6 mmHg AoV Area (Vmax) 2.16 cm2 LVOT VTI 0.269 m AoV VTI 0.307 m LVOT Mean Grad 2.3 mmHg AoV Mean Reginaldo. 0.78 m/s LVOT SV 66.11 mL AoV Mean Grad 2.7 mmHg LVOT Diam s 1.75 cm AoV Area (VTI) 2.15 cm2 Veloci ty Ratio 0.88 Mitral Valve MV DT 128 (160-2 40 msec) MV Vmax TIPS 1.25 m/s MV Mean Grad 1.9 (<2mmH g) MV VTI 0.388 m Pulmon fam Valve PV Vmax 0.99 (0.5-1 .5 m/s) RVOT Vmax 0.79 m/s PV Peak Grad 3.9 mmHg RVOT Peak Gr. 2.5 mmHg PV Mean Reginaldo 0.73 m/s RVOT VTI 0.203 m PV Mean Grad 2.4 mmHg RVOT Mean Gr. 1.5 mmHg Tricus pid Valve RA Pressu re 3.00 mmHg TR Vmax 2.23 m/s TV S' 0.11 m/s TR Peak Grad 19.9 mmHg RVSP (TR) 22.9 mmHg Ordere d By: Yulissa Laniez CC: ------ ------ ------ ------ ------ ------ ------ ------ ------ ------ ------ ------ - Dictat ed By: Jada Mondragon M.D. 1402 1417 Transc ribed By: Jada Mondragon MD 1402 This is privil eged, confid ential inform ation intend ed only for the provid er named. Any use or distri bution by any person other than this provid er is strict ly prohib ited. If you receiv e this report in error, please notify us immedi michellely at [phone] and return the origin al report to us at the addres s above. Thank- you. [email or web address] [facility] [address], [place], [address] 03/15/2024 11:38:17 03/09/20 24 03/09/2024 CT imagi ng repor t Obdulia t Name: Martha Payton Unit #: [id number] Loc: DI Orderi ng Provid er: Yulissa Lainez Accoun t #: [id number] Status : REG CLI Primar y Care Provid er: Yulissa Lainez Date of Exam: 02/20 05/15 Sex: F : 1949 Age: 73 Exam(s ) a CT:CT chest wo Exam(s ) CT CHEST WO EXAM: CT CHEST WO CLINIC AL HISTOR Y: R05.3 Chroni c cough, 45 pack year hx, cough 4 MOS durati on and 9lb wet loss TECHNI QUE: Imagin g Protoc ol: Axial comput ed tomogr aphy images with orozco l and sagitt al reform atted images were create d and review ed CONTRA ST MATERI AL: Contra st. COMPAR NAHID: No exams were availa ble for compar nahid FINDIN GS: Pulmon fam parenc hyma: No consol idatio n. No domina nt measur able mass. Minima l apical scarri ng. No signif icant emphys ematou s change s. Trache obronc hial tree: No bronch iectas is or mucous pluggi ng. Medias tinum and Surekha: No domina nt adenop athy or fluid collec tion. Surgic al clips. Pleura : No effusi on. No pneumo thorax . Heart: The heart is mildly dilate d. Mild orozco ry artery calcif icatio ns are seen. Aorta: Thorac ic aorta non-di lated. Mild athero sclero tic change s. Upper abdome n: No acute findin gs.. Bones: Degene rative change s in the spine. Mild scolio sis. Sterna l wires. Soft tissue s: Unrema rkable . IMPRES BASIL: No acute abnorm ality. RADIAT ION DOSE DELIVE RED: 348.53 mGy.cm Total DLP DATA REPOSI TORY: All CT scans at this facili ty are submit liz to the Nation al Radiol ogy Data Regist ry (NRDR) Dose Index Regist ry (DIR) with the [place] of Radiol ogy (ACR). RADIAT ION OPTIMI ZATION : [facility] use at least one of these dose optimi zation techni ques: automa liz exposu re contro l; mA and/or kV adjust ment per patien t size (inclu christian target ed exams where dose is matche d to clinic al indica tion); or iterat jr recons tructi on. 001: Total DLP = 0.00 mGy-cm Ordere d By: Yulissa Lainez CC: ------ ------ ------ ------ ------ ------ ------ ------ ------ ------ ------ ------ ---- Dictat ed By: Tae March 1748 Transc ribed By: Michaela Jerez 1748 This is privil eged, confid ential inform ation intend ed only for the provid er named. Any use or distri bution by any person other than this provid er is strict ly prohib ited. If you receiv e this report in error, please notify us immedi ately at and return the origin al report to us at the addres s above. Thank- you. [email or web address] [facility] [address], [place], [address] 03/15/2024 11:38:18 06/12/20 24 06/12/2024 x-ray imagi ng repor t Patien t Name: Martha Payton Unit #: [id number] Loc: ER Orderi ng Provid er: Lacho Crorea M.D. Accoun t #: [id number] Status : REG ER Primar y Care Provid er: Yulissa Lainez Date of Exam: 05/24 10/15 Sex: F Admiss ion Date: : 1949 Age: 73 Exam(s ) XR CHEST 2V PA LATERA L EXAM: XR CHEST 2V PA LATERA L CLINIC AL HISTOR Y: ams. TECHNI QUE: 2D digita l imagin g was perfor med. COMPAR NAHID: No exams were availa ble for compar nahid FINDIN GS: 2 views: There is sterno ivonne wires. Heart size is normal . The medias tinum is not widene d. Lungs are clear. No infilt rates nor pleura l effusi ons. IMPRES BASIL: No acute pulmon fam findin gs. Previo us sterno ivonne. Normal heart size. No CHF. DATA REPOSI TORY: RADIAT ION DOSE DELIVE RED: Ordere d By: Lacho Correa M.D. CC: ------ ------ ------ ------ ------ ------ ------ ------ ------ ------ ------ ------ - Dictat ed By: Aden Johnston M.D. 1828 Transc ribed By: Vickie RODRIGUEZ,Yessenia gardner 1828 This is privil eged, confid ential [...] the addres s above. Thank- you. INTERFACE [facility] [address] [place], [address] 06/12/2024 18:34:32 06/12/2006/12/2024 x-ray imagi ng repor t Patien t Name: Martha Payton Unit #: [id number] Loc: ER Orderi ng Provid er: Lacho Correa M.D. Accoun t #: [id number] Status : REG ER Primar y Care Provid er: Yulissa Lainez Date of Exam: 05/24 10/15 Sex: F Admiss ion Date: : 1949 Age: 73 Exam(s ) XR PELVIS AP EXAM: XR PELVIS AP CLINIC AL HISTOR Y: ams, remote fall. TECHNI QUE: 2D digita l imagin g was perfor med. COMPAR NAHID: No exams were availa ble for compar nahid FINDIN GS: Single AP view of the pelvis -hips No eviden ce of obviou s pelvic nor hip fractu re. SI joints appear unrema rkable . Minima l degene rative change s in the left hip. IMPRES BASIL: No pelvic nor hip fractu res eviden t on this single view. DATA REPOSI TORY: RADIAT ION DOSE DELIVE RED: Ordere d By: Lacho Correa M.D. CC: ------ ------ ------ ------ ------ ------ ------ ------ ------ ------ ------ ------ - Dictat ed By: Aden Johnston M.D. 1829 Transc ribed By: Vickie RODRIGUEZ,Yessenia gardner 1829 This is privil eged, confid ential [...] the addres s above. Thank- you. INTERFACE [address] [place], [address] 06/12/2024 18:34:33 06/12/20 24 06/12/2024 CT imagi ng repor t Patien t Name: Martha Payton Unit #: [id number] Loc: ER Orderi ng Provid er: Lacho Correa M.D. Accoun t #: [id number] Status : REG ER Primar y [...] were create d and review ed COMPAR NAHID: Prior brain MRI of 2023 was review [...] right basal gangli a again noted. IMPRES BASIL: Large area of acute infarc t in [...] of 2023. Report called by myself to ER physic jeramy 2023 at 6:35 p.m. RADIAT ION DOSE [...] to clinic al indica tion); or iterat jr recons tructi on. 010: Total DLP = 0.00 mGy-cm Ordere d By: Lacho Correa M.D. CC: ------ ------ ------ ------ ------ ------ ------ ------ ------ ------ ------ ------ ---- Dictat ed By: Aden Johnston M.D. 1837 Transc ribed By: Vickie RODRIGUEZ,Yessenia kendra 1837 This is privil eged, confid ential inform ation intend ed only for the provid er named. Any use or distri bution by any person other than this provid er is strict ly prohib ited. If you receiv e this report in error, please notify us immedi ately at [phone] and return the origin al report to us at the addres s above. Thank- you. INTERFACE [facility] [address], [place], [address] 06/12/2024 18:43:33 06/12/20 24 06/12/2024 vrad repor t Patien t Name: Martha Payton Unit #: [id number] Loc: ER Orderi ng Provid er: Accoun t #: [id number] Status : REG ER Primar y [...] STROKE PROTOC OL was implem ented. COMPAR NAHID: MR ANGIO BRAIN WO 024 1:09 PM FINDIN GS: ANTERI OR CIRCUL ATION: Right rn internship al caroti d artery : Calcif ied plaque with severe stenos is cavern ous right ICA. Right middle cerebr al artery : Modera te to severe stenos is mortgage field inspector ior M3 branch right MCA. No signif icant stenos is remain lien of the right MCA. Right anteri or cerebr al artery : No occlus ion or signif icant stenos is. No aneury sm. Left rn internship al caroti d artery : Calcif ied plaque with modera te stenos is cavern ous left ICA. Left middle cerebr al artery : No occlus ion or signif icant stenos is. No aneury sm. Left anteri or cerebr al artery : No occlus ion or signif icant stenos is. No aneury sm. PATIENT TRANSPORTATION DRIVER IOR CIRCUL ATION: Right verteb ral artery : No occlus ion or signif icant stenos is. No aneury sm. Left verteb ral artery : No occlus ion or signif icant stenos is. No aneury sm. Basila r artery : No occlus ion or signif icant stenos is. No aneury sm. Right mortgage field inspector ior cerebr al artery : No occlus ion or signif icant stenos is. No aneury sm. Left mortgage field inspector ior cerebr al artery : No occlus ion or signif icant stenos is. No aneury sm. HEAD: Brain: Stable right mortgage field inspector ior fronta l and par[place] al infarc [...] Soft tissue s: Unrema rkable . IMPRES BASIL: 1. Stable right mortgage field inspector ior fronta l and pariet al infarc t. 2. 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 3. Calcif ied plaque with modera te stenos is cavern ous left ICA. 4. Modera te to severe stenos is mortgage field inspector ior M3 branch right MCA. ASSESS MENT: ASPECT S (Brandon ta Stroke Progra m Early CT Score) is 8. ====== ====== ====== ====== = PROCED URE INFORM ATION: Exam: CTA Neck Withou t And With Contra st Exam date and time: 8:34 PM Age: 73 years old Clinic [...] d by the techno logist . COMPAR NAHID: MR ANGIO NECK WO 024 1:19 PM FINDIN GS: Right common caroti d artery : No stenos is. No dissec tion or occlus ion. Right rn internship al caroti d artery : No stenos is of the extrac ranial segmen t. No dissec tion or occlus ion. Right forging press setter up al caroti d artery : No occlus ion or stenos is of the origin . Left common caroti d artery : No stenos is. No dissec tion or occlus ion. Left rn internship al caroti d artery : No stenos is of the extrac ranial segmen t. No dissec tion or occlus ion. Left forging press setter up al caroti d artery : No occlus [...] canal stenos is C4-C5 and C5-C6. IMPRES BASIL: Hypopl astic right verteb ral artery , with multif ocal severe stenos is throug hout. REFERE NCES: NASCET CRITER IA. The degree of stenos is in the cervic al segmen t of the rn internship al caroti d artery is based on NASCET criter ia. Normal is no stenos is. Mild is less than 50% stenos is. Modera te is 50-69% stenos is. Severe is 70% to 99% stenos is. Total occlus ion is no detect able patent lumen. Dictat ed and Daphnie sanchez d by: Abelardo Nagel MD. Orderi ng:P.D ISST Shelby pina MD Access ion#=[id number] Gin torres By: CC: ------ ------ [...] error, please notify us immedi michellely at [phone] and return the origin al report to us at the addres s above. Thank- you. [facility] [address] [place], [address] 06/15/2024 15:45:36 06/13/20 24 06/13/2024 vrad repor t Patien t Name: Martha Payton Unit #: [id number] Loc: Orderi ng Provid er: Accoun t #: [id number] Status : ADM IN Primar y Care Provid er: Yulissa Lainez Date of Exam: 05/24 11/15 Sex: F : 1949 Age: 73 Exam(s ) PROCED URE INFORM ATION: Exam: CT Head Withou t Contra st Exam date and time: 9:06 AM Age: 73 years old Clinic al indica tion: Other: Follow -up possib le hemorr raul right occipi araceli CVA TECHNI QUE: Imagin g protoc ol: Comput ed tomogr aphy of the head withou t contra st. COMPAR NAHID: CT BRAIN NECK CTA 8:34 PM FINDIN GS: Brain: Persis tent [...] athero sclero tic calcif icatio ns. IMPRES BASIL: 1. Persis tent hemorr hagic infarc t of the right pariet al lobe. Probab le scatte red areas of enhanc ement. 2. Modera te mucosa l thicke edelmira of the left spheno id sinus with bubbly debris . Dictat ed and Daphnie sanchez d by: Soyf Cordero MD. Orderi ng:Peyton Zhou MD Access ion#=[id number] Ordere d By: CC: ------ ------ ------ ------ ------ ------ ------ ------ ------ ------ ------ ------ ---- Dictat ed By: Report s vrad [id number] Transc ribed By: Chelsea Merge 905 This is privil eged, confid ential inform ation intend ed only for the provid er named. Any use or distri bution by any person other than this provid er is strict ly prohib ited. If you receiv e this report in error, please notify us immedi ately at [phone] and return the origin al report to us at the addres s above. Thank- you. [email or web address] [facility] [address] [place], [address] 06/15/2024 15:45:36 06/13/20 24 06/13/2024 CT imagi ng repor t Patikatie t Name: Martha Payton Unit #: [id number] Loc: MS Thania barrios Provid er: Lacho Correa M.D. Accoun t #: [id number] Status : ADM IN Primar y [...] volume :struc tured data in ml COMPAR NAHID: CT CT HEAD WO from 2023 FINDIN [...] right side there is calcif ied plaque mortgage field inspector iorly at the caroti d bulb-b ifurca tion level and there is also calcif ied plaque on the medial and mortgage field inspector ior saldaña of the proxim al right ICA. Amount of stenos is at this level is estima liz at approx imatel y 40 percen t in the proxim al right ICA. The right ICA is nicely patent in the upper neck. Left caroti d bulb exhibi ts some calcif ied plaque anteri sherry. There is calcif ied plaque on the mortgage field inspector ior wall the proxim al left ICA. Approx imatel y 30 percen t stenos is at this level. There is also self like plaque at the origin left ICA with more promin ent stenos is at this level, approx imatel y 70 percen t. Left ICA in the upper neck is patent . Sliding Joint Maker ior circul ation: Both verteb ral arteri [...] Brain W: Anteri or circul ation: Both rn internship al caroti d arteri es are patent in the skull base-c arotid canals . Both intra cavern ous rn internship al caroti d arteri es are periph erally calcif ied. There is a signif icant focal stenos is at the juncti on of the intra cavern ous and suprac linoid aspect of the right rn internship al caroti d artery with approx imatel [...] or commun icatin g artery . Left mortgage field inspector ior cerebr al artery is patent withou t signif icant stenos is. There is mild-m oderat e narrow ing in the proxim al right middle cerebr al artery . No intral uminal thromb us seen. No aneury sms. No dissec tion flaps. Sliding Joint Maker ior circul ation: The basila r artery ascend s in the midlin e. Distal ly it gives off patent right mortgage field inspector ior cerebr al artery althou gh there is a modera te stenos is in the mortgage field inspector ior cerebr al artery a few cm distal to its origin . The left mortgage field inspector ior cerebr al artery is predom inantl y fed by a mortgage field inspector ior commun icatin g artery on the left side of the [place]. This that There is no eviden ce of aneury sm at the tip of the basila r artery nor elsewh ere in the [place]. CT BRAIN: Again noted is [...] ing lesion s in the brain. IMPRES BASIL: 1. Relati vely stable appear ance of [...] facili ty are submit liz to the [facility] al Radiol ogy Data Regist ry (NRDR) [...] to clinic al indica tion); or iterat jr recons tructi on. 017: Total DLP = 0.00 mGy-cm Ordere d By: Lacho Correa M.D. CC: ------ ------ ------ ------ ------ ------ ------ ------ ------ ------ ------ ------ ---- Dictat ed By: Aden Johnston M.D. 1545 1545 Transc ribed By: Vickie RODRIGUEZ,Yessenia gardner 1545 This is privil eged, confid ential inform [...] the addres s above. Thank- you. INTERFACE [facility] [address], [place], [address] 06/13/2024 15:50:13 06/13/2006/13/2024 CT imagi ng repor t Patien t Name: Martha Payton Unit #: [id number] Loc: Orderi ng Provid er: Jabari Bustamante Accoun t #: [id number] Status : ADM IN Primar [...] were create d and review ed COMPAR NAHID: CT CT HEAD WO from 2023 CT [...] chroni c small vessel diseas e. IMPRES BASIL: Redemo nstrat ion of right pariet al [...] facili ty are submit liz to the [facility] al Radiol ogy Data Regist ry (NRDR) [...] to clinic al indica tion); or iterat jr recons tructi on. 001: Total DLP = 0.00 mGy-cm Ordere d By: Jabari Bustamante CC: ------ ------ ------ ------ ------ ------ ------ ------ ------ ------ ------ ------ ---- Dictat ed By: Aden Johnston M.D. 1602 1602 Transc ribed By: Yessenia Johnston MD 1602 This is privil eged, confid ential inform ation intend ed only for the provid er named. Any use or distri bution by any person other than this provid er is strict ly prohib ited. If you receiv e this report in error, please notify us immedi laurel at [phone] and return the origin al report to us at the addres s above. Thank- you. INTERFACE [facility] [address], [place], [address] 06/13/2024 16:16:16 06/14/20 24 06/14/2024 MRI imagi ng repor t Patien t Name: Martha Payton Unit #: [id number] Loc: Orderi ng Provid er: Jabari Bustamante Accoun t #: [id number] Status : ADM IN Primar y Care Provid er: Yulissa Lainez Date of Exam: 05/24 12/13 Sex: F Admiss ion Date: : 1949 Age: 73 Exam(s ) MR BRAIN WO EXAM: MR BRAIN WO CLINIC AL HISTOR Y: Subacu te right occipi araceli CVA TECHNI QUE: Multip lanar multis equenc e MRI of the brain was perfor med. COMPAR NAHID: MR MR BRAIN WO from 2023 MR [...] parana chino sinuse s are clear. PITUIT FAM GLAND: Unrema rkable . OTHER FINDIN GS: None. IMPRES BASIL: 1. Redemo nstrat ion of a large [...] the addres s above. Thank- you. INTERFACE [address] , [place], [address] 06/14/2024 12:37:22 06/14/20 24 06/14/2024 ultra sound imagi ng repor t Obdulia t Name: Martha Payton Unit #: [id number] Loc: MS Thania barrios Provid er: Jabari Bustamante t #: [id number] Status : ADM IN Primar y [facility] er: FatouYulissa hanh Date of Exam: 05/24 12/13 Sex: F Admiss ion Date: : 1949 Age: 73 ------ ------ --- APPROV ED REPORT ------ ------ -- EXAM: Compre hensiv e 2D, Dopple r, and color- flow Echoca rdiogr am Obdulia wilde Locati on: In-Pat ient Room/B ed: 208 [...] contra st study for shunt flow. Conclu basil Border line concen tric left ventri cular [...] visual ized. LVEF is 65%. Right Ventri aleln The right ventri allen is normal size. [...] 28.8 mmHg. Pulmon ic Valve The pulmon fam valve is normal in struct ure. There [...] (<2mmH g) MV VTI 0.406 m Pulmon fam Valve PV Vmax 1.15 (0.5-1 .5 m/s) RVOT Vmax 0.85 m/s PV Peak Grad 5.3 mmHg RVOT Peak Gr. 2.9 mmHg PV Mean Reginaldo 0.84 m/s RVOT VTI 0.238 m PV Mean Grad 3.2 mmHg RVOT Mean Gr. 1.4 mmHg Tricus pid Valve RA Pressu re 3.00 mmHg TR Vmax 2.54 m/s TR Peak Grad 25.8 mmHg RVSP (TR) 28.8 mmHg Ordere d By: Jabari Bustamante CC: ------ ------ ------ ------ ------ ------ ------ ------ ------ ------ ------ ------ - Dictat ed By: Jada Mondragon M.D. 1516 1520 Transc ribed By: Jada Mondragon MD 1516 This is privil eged, confid ential inform ation intend ed only for the provid er named. Any use or distri bution by any person other than this [facility] er is strict ly prohib ited. If you receiv e this report in error, please notify us immedi michellely at and return the origin al report to us at the addres s above. Thank- you. INTERFACE [facility] [address] [place], [address] 06/14/2024 15:22:54 Result Notes None recorded. Problems Name Problem SNOMED Code Status Onset Date Resolution Date Notes Provider Name and Address Organization Details Recorded Time Poor short-term memory 347756628 Active [address], [place], [address], [facility] 4 10:28:13 Essential hypertensi on 47352514 Active [address], [place], [address], [facility] 4 10:29:23 Blood glucose outside reference range 369072895 Active [address], [place], [address], [facility] 4 10:30:43 Iritis 11376543 Active [address], [place], [address], [facility] 4 10:31:43 Tobacco dependence caused by cigarettes 084622280491 82134 Active [address], [place], [address] , [facility] 12:23:42 Adjustment disorder with depressed mood 62070504 Active [address], [place], [address], [facility] 4 12:26:28 Prediabete s 987828774 Active 2023 5.7% on [address], [place], [address], [facility] 4 07:52:17 History of coronary artery bypass grafting 672129663 Active 2009 In 2010 per prior med recs [address], [place], [address], [facility] 14:53:13 Unexplaine d weight loss 736148473 Active [address], [place], [address], [facility] 13:43:55 Chronic cough 29982802 Active [address], [place], [address], [facility] 13:44:00 Pain of left shoulder joint 790699387754 82286 Active [address], [place], [address], [facility] 13:44:16 Hyperlipid emia 50455302 Active [address], [place], [address], [facility] 13:48:11 Chronic obstructiv e pulmonary disease 20029193 Active [address], [place], [address], [facility] 13:49:36 Lacunar infarction 388306815 Active [address], [place], [address], [facility] 18:17:27 Bradycardi a 87071841 Active [address], [place], [address], [facility] 18:36:12 Chronic kidney disease stage 3B 856820910 Active 2023 NOted in 1 Note in prior MR as stage 3 D/T HTN. Plan to control BP as care plan. [address], [place], [address], [facility] 4 05:24:31 Pulmonary emphysema 79639970 Active [address], [place], [address], [facility] 4 12:31:17 Leukocytos is 583776478 Active [address], [place], [address], [facility] 4 20:10:17 Pyuria 3460245 Active [address], [place], [address], [facility] 4 20:12:07 Agitation due to dementia 247242918 Active [address], [place], [address], [facility] 16:19:39 Problem Notes None recorded. Procedures Surgical History None recorded. Imaging Results Imaging Date Name Status LastModified by Organiz [facility] Details LastModified Time 01/19/2024 MRI imaging report completed [address] [place], [address] 01/19/2024 15:21:28 01/19/2024 [facility], [facility], w[facility]o contrast [email or web address] [address] [place] [address] [place], [address], 01/20/2024 08:49:10 01/19/2024 MRI, brain, w/o contrast [email or web address] [address] [place] [address] [place], [address], 01/20/2024 08:49:24 03/02/2024 MRI imaging report completed [address] [place], [address] 03/03/2024 18:56:46 03/02/2024 MRI imaging report completed [id number] [place], [address] 03/03/2024 18:56:46 03/09/2024 ultrasound imaging report completed [email or web address] [place], [address] 03/15/2024 11:38:17 03/09/2024 CT imaging report completed [id number] [place], [address] 03/15/2024 11:38:18 06/12/2024 x-ray imaging report completed INTERFACE [address] [place], [address] 06/12/2024 18:34:32 06/12/2024 x-ray imaging report completed INTERFACE [address] [place], [address] 06/12/2024 18:34:33 06/12/2024 CT imaging report completed INTERFACE [address] [place], [address] 06/12/2024 18:43:33 06/12/2024 vrad report completed [address] [place], [address] 06/15/2024 15:45:36 06/13/2024 vrad report completed [id number] [place], [address] 06/15/2024 15:45:36 06/13/2024 CT imaging report completed INTERFACE [address] [place], [address] 06/13/2024 15:50:13 06/13/2024 CT imaging report completed INTERFACE [address] [place], [address] 06/13/2024 16:16:16 06/14/2024 MRI imaging report completed INTERFACE [facility] [address] [place] [address] [place], [address] 06/14/2024 12:37:22 06/14/2024 ultrasound imaging report completed INTERFACE [address] [place], [address] 06/14/2024 15:22:54 Procedure Notes None recorded. Medical Equipment None Reported. Allergies Allergen ID Allergen Name Allergen Category Reaction Reaction Severity Criticality Documentation Date Start Date Code Code System Note Provider Name and Address Organization Details Recorded Time 76700 chlorthal idone medicatio n Not available Not available [facility] 01/28/2024 2409 RxNorm MAR[address], [place], [address] , [facility] 17:56:24 40627 hydrochlo rothiazid e medicatio n Not available Not available [facility] 01/28/[address], [place], [address] , [facility] 17:56:38 Medications Name Sig Start Date Stop Date Status Note LastModified by Organization Details LastModified Time losartan 50 mg tablet Take 1 tablet twice a day by oral route as directed . 2023 active [facility] Not Available Not Available Not Available quetiapin e 25 mg tablet 1 tablet by mouth each night 2023 active Not Available Not Available Not Avai lable atorvasta tin 80 mg tablet Take 1 tablet every day by oral route at bedtime. 2023 active updated from [employer] EMR Not Available Not Available Not Available [...] route as directed . 2023 [facility] Not Available Not Available Not Available clopidogr el 75 mg tablet Take 1 tablet every day by oral route as directed . 2023 active Not Available Not Available Not Avai lable amlodipin e 5 mg tablet Take 1 tablet every day by oral route as directed . 2023 active [facility] Not Available Not Available Not Available [...] route as directed . 2023 active [facility] Not Available Not Available Not [...] height Body mass index (BMI) Body weight Respiratory rate Body temperature Oxygen saturation Oxygen saturation in Arterial blood by Pulse oximetry Systolic blood pressure Diastolic blood pressure Provider Name and Address Organization Details Last Updated DateTime 4 147.32 cm 23 kg/m2 08706.1 6 g 18 /min 97.9 [degF] 96 % 96 % 167 mm[Hg] 77 mm[Hg] Kylah Almonte [place] - [facility]. 4 11:37:00 Date Recorded Heart rate Provider Name an d Address Organization Details Last Updated DateTime 11/01/2023 67 /min Carter REINOSO [employer] [address], [place], [address], [facility] 11/01/2023 11:51:06 Date Recorded Body height Body mass index (BMI) Body weight Body temperature Oxygen saturation Oxygen saturation in Arterial blood by Pulse oximetry Heart rate Systolic blood pressure Diastolic blood pressure Provider Name and Address Organization Details Last Updated DateTime 4 147.32 cm 21.8 kg/m2 07255.3 2 g 98.1 [degF] 100 % 100 % 72 /min 142 mm[Hg] 84 mm[Hg] DEEDEE PITTMAN MA [facility] 4 09:58:12 Date Recorded Body height Body mass index (BMI) Body weight Body temperature Oxygen saturation Oxygen saturation in Arterial blood by Pulse oximetry Heart rate Systolic blood pressure Diastolic blood pressure Provider Name and Address Organization Details Last Updated DateTime 4 147.32 cm 21.2 kg/m2 12539.9 8 g 98.1 [degF] 98 % 98 % 55 /min 122 mm[Hg] 90 mm[Hg] DEEDEE PITTMAN MA [facility] 4 13:06:09 Date Recorded Body height Body mass index (BMI) Body weight Body temperature Oxygen saturation Oxygen saturation in Arterial blood by Pulse oximetry Heart rate Systolic blood pressure Diastolic blood pressure Provider Name and Address Organization Details Last Updated DateTime 4 147.32 cm 20.8 kg/m2 32063.0 8 g 97.7 [degF] 97 % 97 % 62 /min 130 mm[Hg] 72 mm[Hg] DEEDEE PITTMAN MA [facility], [facility] 4 11:29:51 Date Recorded Body height Body mass index (BMI) Body weight Body temperature Oxygen saturation Oxygen saturation in Arterial blood by Pulse oximetry Heart rate Respiratory rate Systolic blood pressure Diastolic blood pressure Systolic blood pressure Diastolic blood pressure Systolic blood pressure Diastolic blood pressure Systolic blood pressure Diastolic blood pressure Provider Name and Address Organization Details Last Updated DateTime 4 147.32 cm 20.5 kg/m2 72506.4 5 g 98.1 [degF] 99 % 99 % 62 /min 18 /min 195 mm[Hg] 63 mm[Hg] 211 mm[Hg] 102 mm[Hg] 210 mm[Hg] 75 mm[Hg] 199 mm[Hg] 66 mm[Hg] Keesha Zaragoza MA [facility] 21:02:19 Social History Question Answer Notes LastModified by Organizat ion Details LastModified Time Tobacco Smoking Status Current Every Day Smoker [place], [facility] 11/01/2023 11:33:08 Would You Say That, In [...] Of Your Most Recent Tobacco Screening? 05/14/2024 [email or web address] Information n ot available 05/14/2024 How Much Tobacco Do You Smoke? 0.5 PPD [email or web address] Information not available 05/14/2024 Has Tobacco Cessation Counseling Been Provided? Yes Information not available 11/01/2023 On What Date Was Tobacco Cessation Counseling Provided? 05/14/2024 [email or web address] Information not available 05/14/2024 Do You Or [...] Diagnosis/Indication Diagnosis SNOMED-CT Code Diagnosis ICD10 Code [id number] SAJAN REINOSO [address] [place] [address] 11/01/2023 11:23:08 11/01/2023 12:27:22 Pain of left shoulder region 8980321175 M25.512 senior living current use of non-steroidal anti-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 4129243278 84335 Z79.1 Elevated blood-pressure reading without diagnosis of hypertension 995628370 R03.0 Cough 44144212 R05.9 [id number] MARIAM FANG [facility] [address] [place] [address] 12/11/2023 09:48:55 12/11/2023 11:47:56 Poor short-term memory 957760618 R41.3 History of coronary artery bypass grafting 870089441 Z95.1 Essential hypertension 78977781 I10 Diabetes m ellitus screening 716167280 Z13.1 Hyperlipid emia screening 239873249 Z13.220 Adjustment disorder with depressed mood 42001327 F43.21 Tobacco de pendence caused by cigarettes 3167731768 0786084 F17.319 [id number] MARIAM FANG [facility] [address] [place] [address] 01/28/2024 12:55:09 01/28/2024 14:09:34 Unexplained weight loss 288203279 R63.4 Chronic cough 93506785 R 05.3 Pain of le ft shoulder joint 3534532145 7983628 M25.512 Hyperlipidemia 35700745 E78.5 Chronic ob structive pulmonary disease 83075188 J44.9 Lacunar infarction 13619 8000 I63.81 Bradycardia 40720778 R00 .1 [id number] MARIAM FANG [facility] [address] [place] [address] 03/29/2024 11:20:50 03/29/2024 12:12:54 Tobacco dependence caused by cigarettes 7525108392 9409254 F17.210 Pulmonary emphysema 8743 3001 J43.9 Lacunar infarction 03753 8000 I63.81 Normal bod y mass index 09433704 Z68.20 Essential hypertension 66143539 I10 [id number] ISATU ZAMORA PA-C [address] [place] [address] 05/14/2024 18:33:21 05/14/2024 21:16:51 Pyuria 1131722 R82.81 Health Concerns Section Related Observation LastModified by Organization Detai ls LastModified Time None Recorded Concern Status LastModified by Organization Details LastModified Time None Recorded Advance Directives Directive None Recorded Payers Encounter Date Sequence Insurance Name Policy Number Policy Nicole Covered Member ID Nicole Member ID Guarantor Name 11/01/2023 2 [facility] (MEDICAID) Jennifer Deyvi De La Torreer [id number] Jenniferkatie Russousier 11/01/2023 1 [place] [employer] Jennifer De La Torreer [id number] Jenniferkatie Russousier 12/11/2023 2 [facility] (MEDICAID) Jenniferkatie Russousier [id number] Jennifer R Lausier 12/11/2023 1 [place] [employer] Jennifer Russousier [id number] Jennifer Russousier 01/28/2024 2 [facility] (MEDICAID) Jenniferkatie Russousier [id number] Jennfier R Lausier 01/28/2024 1 [place] [employer] Jennifer Russousier [id number] Jennifer Carnes Lausier 03/29/2024 2 [facility] (MEDICAID) Jennifer R Lausier [id number] Jennifer R Lausier 03/29/2024 1 [place] [employer] Jennifer Russousier [id number] Jennifer Carnes Lausier 05/14/2024 2 [facility] (MEDICAID) Jennifer R Lausier [id number] Jennifer R Lausier 05/14/2024 1 [place] [employer] Jennifer De La Torreer [id number] Jennifer De La Torreer Notes Date Note Type Note Provider Name and Address Organization Details Recorded Time 11/01/2023 text/html HPI Notes: Tori anders today presents due to 1.5 weeks ago, was recently exposed to household contacts with similar symptoms. Symptoms began with nasal congestion, sore throat, and cough. Had no fevers, body aches, sweats, or chills. She now has a continued cough, occasionally productive of thick mucous. She is having nasal congestion and nasal discharge, no noted blood. Denies facial pain or pressure, or sinus headaches. Denies any shortness of breath, wheezing, or chest tightness. Patient is current daily smoker, began smoking at age 15, has never quit, typically smoking 1/2 PPD (equalling approximately 30 pack year history). Denies any history of chronic lung issues or COPD diagnosis. Has never required use of inhalers. With this recent illness, patient has used OTC cough drops, and has taken Mucinex with some improvement in symptoms. Patient today also concerned for L chronic shoulder pain. She had reported fracture of L shoulder/clavicle (she cannot recall which bone was broken). This occurred when she was living in [place], [place], and was seen at a local hospital, given sling, and advised rest until recovered. Area seemed to heal after the injury, and she had minimal pain. Then, in the last year, , has noted enlarging bony prominence in this same area, that is more tender and painful. She does have decreased ROM to L shoulder. She has had no new fall, trauma, or injury since then. Has been taking OTC Advil Dual Action for shoulder pain with significant improvement in pain while taking, but bony, tender lump remains fairly prominent. She moved to this area from [place] 1 year ago, did not have PCP, and has a pending new patient appointment with [facility] on 11/27/23. She does report past medical history of triple bypass many years ago (patient cannot recall the year this occurred), with no procedures since then. She states she did see cardiology after these procedures, but has not seen them recently. She denies taking any daily antiplatelet, she takes no blood pressure medications or statin. She did previously have nitroglycerin available after procedure, but has not used for the last 3 months, per her history. NEELAM GAMBOA, SAJAN [address], [place], [phone], [facility]. 11/03/2023 08:43:40 12/11/2023 text/html HPI Notes: Pt., 73-F, new to practice, has not had any regular primary care in recent times, seen at Urgent care EDrecently with Mabel colunga, treated with Valacyclovir, here to establish care. Elevated Glucose. Glucose noted to be 125 on 10/2023 labs drawn at ED. The following history is taken from 11/01/2023 visit with Neelam Monroe: Had out break 06/[address] [facility]. w/Acyclovir. Patient is current daily smoker, began smoking at age 15, has never quit, typically smoking 1/2 PPD (equalling approximately 30 pack year history). Denies any history of chronic lung issues or COPD diagnosis. Has never required use of inhalers. With this recent illness, patient has used OTC cough drops, and has taken Mucinex with some improvement in symptoms. L chronic shoulder pain. She had reported fracture of L shoulder/clavicle (she cannot recall which bone was broken). This occurred when she was living in [place], [place], and was seen at a local hospital, given sling, and advised rest until recovered. Area seemed to heal after the injury, and she had minimal pain. Then, in the last year, , has noted enlarging bony prominence in this same area, that is more tender and painful. She does have decreased ROM to L shoulder. She has had no new fall, trauma, or injury since then. Has been taking OTC Advil Dual Action for shoulder pain with significant improvement in pain while taking, but bony, tender lump remains fairly prominent. ASCVD: . She does report past medical history of triple bypass many years ago (patient cannot recall the year this occurred), with no procedures since then. She states she did see cardiology after these procedures, but has not seen them recently. She denies taking any daily antiplatelet, she takes no blood pressure medications or statin. She did previously have nitroglycerin available after procedure, but has not used for the last 3 months, per her history. CKD 3B: GFR 37 on lab check from . HTN: 167/77 on 11/01/2023. Pt. reported prior history of HTN. Memory: Pt. intake reports possible memory concerns. MARIAM FANG [address], [place], [phone], [facility]. 12/11/2023 12:27:14 01/28/2024 text/html HPI Notes: Pt, 7 3-F, here for f/u after brain imaging revealed an there is also a singular tiny focus of restricted diffusion in the left periventricular white matter consistent with acute lacunar infarct, nonhemorrhagic. from 01/19/2024. Donna her [employer] principal, reports that her balance is not too great, but she hasn't fallen. This has been consistent since she has stayed with them. Donna denies pt. reported any headaches. Pt. has had no change in symptoms, no falls, no slurring of speech since she has been in Donna's care. She is now taking an aspirin daily. HTN: BP 122/90 today. Left Shoulder: Pain after fall several years ago in left shoulder. Some pain in her left shoulder still at this time. She feels she has a bony prominence bigger than the other side. Cough: Chronic cough. 4 or so months. Pt. with 9 lbs of weight loss despite maintaining normal diet. Review of prior MR shows presumed diagnosis of COPD by prior provider and pt. improved w/Ventolin. MARIAM FANG [address], [place], [phone], [facility]. 01/28/2024 18:42:01 03/29/2024 text/html HPI Notes: Pt. 7 3-F, here for f/u of lacunar infarct found incidentally on MRI 01/19/2024 that had been ordered in the settingt of cognitive decline. Since the incidental finding, she has had cardiac US 03/09/2024 with 55-60% EF, mild mitral regurg, and otherwise WNL. 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 Smoking/Emphysema: Seen on CT scan 03/09/2024, Pt. 97% on RA today. She is working on quitting smoking down to 1/2 pack/day, from 1.5 packs/day. Her daughter in law is helping her to quit. She has a Venolin inhaler that she uses if SOB, but pt. denies any recent SOB, dyspnea, new cough. Weight: Pt. concerned she only weighs 98 lbs. Since moving in w/daughter in law, she has stopped drinking soda, is eating more fruits and veggies. Had Lung CT in relation to the weight change out of concern for heavy tobacco history and that was normal w/exception to emphysema present. No malignancy. MARIAM FANG [address], [place], [phone], [facility]. 03/29/2024 12:38:37 05/14/2024 text/html HPI Notes: I rec eived a phone call from the patient's primary [...] clear at this time. [address], [place], [phone], [facility]. 05/15/2024 13:54:05 OBGyn Episode No OBEpisode recorded.
--- OUTSIDE RECORDS SUMMARY | 2024-07-02 15:43 | XMS_ITS | Encounter Summary ---
Author Organization [facility] Address [address] [place] [address] Care Team Providers Care Editor Continuity And Script Name Role Phone Unavailable Primary Care Provider Unavailabl e Encounter Details Date Type Department Care Team (Late st Contact Info) Description 12/11/2023 Lab Requisition [facility] Pathology & Laboratory Medicine - [facility] [address] [place] [address] Outr Resulting Lab, Provider Social History Tobacco Use Types Packs/Day Years Used Date Smoking Tobacco: Never Assessed Sex and Gender Information Value Date Recorded Sex Assigned at Not on file Gender Identity Not on file Sexual Orientation Not on file documented as of this encounter Plan of Treatment Not on file documented as of this encounter Procedures Procedure Name Priority Date/Time Associated Diagnosis Comments HIV 1/2 ANTIGEN AND ANTIBODY, 4TH GENERATION Routine 12/11/2023 11:00 EDT documented in this encounter Results * HIV 1/2 ANTIGEN AND ANTIBODY, 4TH GENERATION (12/11/2023 11:00 EDT) HIV 1 and 2 Antibody/p24 Antigen, 4th Generation Negative Negative 12/12/2023 12:15 EDT [facility] Comment:If acute HIV-1 infec tion is suspected in a high risk patient, submit plasma specimen for HIV-1 RNA quantitation test. Blood VENOUS BLOOD / Unknown 12/11/2023 11:00 EDT 12/11/2023 21:23 EDT Narrative [facility] - 12/12/2023 12:15 EDT Fourth Generation assay performed on the Siemens Centaur XPT. Provider Outr Resulting Lab IMMUNOLOGY A ND SEROLOGY ORDERABLES [facility] [address] [place] [id number] documented in this encounter Visit Diagnoses Not on filedocumented in this encounter
--- OUTSIDE RECORDS SUMMARY | 2024-07-02 15:43 | XMS_ITS | Clinical Summary ---
Author Organization [facility] Address [address] [place] [address] Care Team Providers Care Rug Dry Room Attendant Name Role Phone Unavailable Primary Care Provider Unavailabl e Social History Tobacco Use Types Packs/Day Years Used Date Smoking Tobacco: Never Assessed Sex and Gender Information Value Date Recorded Sex Assigned at Not on file Gender Identity Not on file Sexual Orientation Not on file Plan of Treatment Health Maintenance Due Date Last Done Comments Hepatitis C Screen 1950 RSV Immunization ( o r 60+ Years) (1 - 1-dose 60+ series) 2010 Fall Risk Screening 2015 COVID-19 Vaccine (2022-24 season) 2023
--- OUTSIDE RECORDS SUMMARY | 2024-07-02 15:43 | XMS_ITS | Encounter Summary ---
Author Organization [facility] Address [address] [place] [address] Care Team Providers Care Welfare Worker Name Role Phone Unavailable Primary Care Provider Unavailabl e Encounter Details Date Type Department Care Team (Late st Contact Info) Description 12/11/2023 Lab Requisition [facility] Pathology & Laboratory Medicine - [facility] [address] [place] [address] Outr Resulting Lab, Provider Social History Tobacco [...] Procedure Name Priority Date/Time Associated Diagnosis Comments SYPHILIS SEROLOGY Routine 12/11/2023 11: 00 EDT documented in this encounter Results * SYPHILIS SEROLOGY (12/11/2023 11:00 EDT) Syphilis Serology Negative Negative 12/12/2023 11:48 EDT [facility] Blood VENOUS BLOOD / Unknown 12/11/2023 11:00 EDT 12/11/2023 21:23 EDT Provider Outr Resulting Lab IMMUNOLOGY A ND SEROLOGY ORDERABLES [facility] [address] [place], [place] [id number] documented in this encounter Visit Diagnoses Not on filedocumented in this encounter
[2024-07-02 16:01] LABS: Anion Gap 13.6 mmol/L (3-11); BUN 40 mg/dL (7-18); CO2 17.4 mmol/L (21.0-32.0); CREATININE 1.6 mg/dL (0.55-1.02); Calcium 9.3 mg/dL (8.5-10.1); Chloride 116 mmol/L (98-107); Estimated GFR 33.84 (mL/min/1.73m2); Glucose 110 mg/dL (74-106); Potassium 3.9 mmol/L (3.5-5.1); Sodium 147 mmol/L (136-145)
== END 2024-07-02 15:42 | disposition home or self-care (01) ==
LOC: NCHCN 15:41
PROVIDERS: PCP Student in an Organized Health Care Education/Training Program; Visit Provider Student in an Organized Health Care Education/Training Program
DX: N18.30 Chronic kidney disease, stage 3 unspecified (principal)
CPT/HCPCS: 80048

== ENCOUNTER 2024-07-09 10:40 | Outpatient (REF) | payer MEDICARE, MEDICAID, SELFPAY ==
[2024-07-09 16:07] LABS: Abs Immature Grans 0.04 10^3/uL (0.0-0.06); Absolute Basophil Count 0.06 10^3/uL (0.0-0.2); Absolute Eosinophil Count 0.13 10^3/uL (0.0-0.7); Absolute Lymphocyte Count 1.63 10^3/uL (1.2-3.4); Absolute Monocyte Count 0.66 10^3/uL (0.1-0.8); Absolute Neutrophil Count 7.62 10^3/uL (1.2-6.7); Basophils % 0.6 %; Eosinophils % 1.3 %; HGB 10.4 g/dL (11.2-15.7); Immature Grans % 0.4 %; Lymphocytes % 16.1 %; MCH 30.3 pg (27.0-33.0); MCHC 32.5 % (32.0-36.0); MCV 93 fL (80-95); MPV 11.3 fL (8.0-11.0); Monocytes % 6.5 %; Neutrophils % 75.1 %; Platelet Count 286 10^3/uL (130-400); RBC 3.43 10^6/uL (3.93-5.22); RDW 13.6 % (11.7-14.6); RDW-SD 46.5 fL; WBC 10.14 10^3/uL (4.4-10.8)
[2024-07-09 16:16] LABS: Anion Gap 15.4 mmol/L (3-11); BUN 45 mg/dL (7-18); CO2 19.6 mmol/L (21.0-32.0); CREATININE 1.9 mg/dL (0.55-1.02); Calcium 9.2 mg/dL (8.5-10.1); Chloride 112 mmol/L (98-107); Estimated GFR 27.37 (mL/min/1.73m2); Glucose 228 mg/dL (74-106); Magnesium 1.9 mg/dL (1.8-2.4); Potassium 3.4 mmol/L (3.5-5.1); Sodium 147 mmol/L (136-145)
== END 2024-07-09 10:41 | disposition home or self-care (01) ==
LOC: NCHCN 10:40
PROVIDERS: PCP Student in an Organized Health Care Education/Training Program; Visit Provider Student in an Organized Health Care Education/Training Program
DX: E87.6 Hypokalemia (principal)
CPT/HCPCS: 80048; 83735; 85025

== ENCOUNTER 2024-07-12 16:50 | Outpatient (REF) | payer MEDICARE, MEDICAID, SELFPAY ==
--- OUTSIDE RECORDS SUMMARY | 2024-07-12 16:52 | XMS_ITS | Clinical Summary ---
Author Organization [facility] Address [address] [place] [address] Care Team Providers Care Office Support Name Role Phone Unavailable Primary Care Provider [...]
--- OUTSIDE RECORDS SUMMARY | 2024-07-12 16:52 | XMS_ITS | Encounter Summary ---
Author Organization [facility] Address [address] [place] [address] Care Team Providers Care Design Engineering Specialist Name Role Phone Unavailable Primary Care Provider Unavailabl e Encounter Details Date Type Department Care Team (Late st Contact Info) Description 12/11/2023 Lab Requisition [facility] Pathology & Laboratory Medicine - [facility] [address] [place] [address] Outr Resulting Lab, Provider Social History Tobacco [...] Syphilis Serology Negative Negative 12/12/2023 11:48 EDT [facility] Blood VENOUS BLOOD / Unknown 12/11/2023 11:00 EDT 12/11/2023 21:23 EDT Provider Outr Resulting Lab IMMUNOLOGY A ND SEROLOGY ORDERABLES [facility] [address] [place], [place] [phone] documented in this encounter Visit Diagnoses Not on filedocumented in this encounter
--- OUTSIDE RECORDS SUMMARY | 2024-07-12 16:52 | XMS_ITS | Encounter Summary ---
Author Organization [facility] Address [address] [place] [address] Care Team Providers Care Catalogue Compiler Name Role Phone Unavailable Primary Care Provider Unavailabl e Encounter Details Date Type Department Care Team (Late st Contact Info) Description 12/11/2023 Lab Requisition [facility] Pathology & Laboratory Medicine - [facility] [address] [place] [address] Outr Resulting Lab, Provider Social History Tobacco [...] 4th Generation Negative Negative 12/12/2023 12:15 EDT [facility] Comment:If acute HIV-1 infec tion is suspected in a high risk patient, submit plasma specimen for HIV-1 RNA quantitation test. Blood VENOUS BLOOD / Unknown 12/11/2023 11:00 EDT 12/11/2023 21:23 EDT Narrative [facility] - 12/12/2023 12:15 EDT Fourth Generation assay performed on the Siemens Centaur XPT. Provider Outr Resulting Lab IMMUNOLOGY A ND SEROLOGY ORDERABLES [facility] [address] [place] [id number] documented in this encounter Visit Diagnoses Not on filedocumented in this encounter
--- OUTSIDE RECORDS SUMMARY | 2024-07-12 16:52 | XMS_ITS | Referral Summary ---
Author Organization [facility] Address [address] [place] [address] Care Team Providers Care Tie In Hand Name Role Phone Unavailable Primary Care Provider Unavailabl e Social History Tobacco Use Types Packs/Day Years Used Date Smoking Tobacco: Never Assessed Sex and Gender Information Value Date Recorded Sex Assigned at Not on file Gender Identity Not on file Sexual Orientation Not on file Plan of Treatment Not on file
--- OUTSIDE RECORDS SUMMARY | 2024-07-12 16:53 | XMS_ITS | Continuity of Care Document ---
Author Organization [place] [facility], [facility] Address [address] [place] [address] [address] [place] [address] Assessment No assessment recorded. Plan of Treatment Reminders Order Date Submit Date Provider Last Modified By Organization Details Last Modified Time Details Appointments Follow Up 30 2023 08:30A M Eduardo Fatou Not available Not available Not available Annual Wellness Exam 40 2024 02:30P M Eduardo Fatou Not available Not available Not available Lab culture, urine + sensitivi ty 2023 024 [facility] (Registration ), [address] [place] [address] [place], [address], 05/17/2024 08:14:58 microscop ic method, urine 2023 024 [facility] (Registration ), [address] [place] [address] [place], [address], 05/15/2024 08:48:21 urinalysi s, dipstick 2023 024 [email or web address] [facility], [address] [place] [address], [address], [place], [address], 05/14/2024 20:40:44 Referral None recorded. Procedures None recorded. Surgeries None recorded. Imaging None recorded. Medication Orders cefuroxim e axetil 250 mg tablet 2023 024 [email or web address] [facility], [address] [place], [address], 07/01/2024 11:35:09 cefuroxim e axetil 250 mg tablet 2023 024 [email or web address] Not available 07/01/2024 11:35:09 Patient TargetsNo targets recorded. Patient Instructions Encounter Date Encounter Id Patient Instructions Last Modified By Organization Details Last Modified Time 05/14/2024 [id number] 1. I am concerne d that her symptoms may be related to a urinary tract infection thus I have gone ahead and given her her first tablet of antibiotic tonight and the remaining doses were sent to the [facility] in [place]. 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 Referring Physician: Maximo Lainez Family Medicine, Encounter Date: 07/05/2024 Results Created Date Observation Date Name Description Value Unit Range Abnormal Flag Note LastModifiedBy Organization Detail LastModifiedTime 05/14/20 24 05/14/2024 urina lysis , dipst ick Leukocytes Trace Not Available [address], [place], [address], 05/14/2024 20:24:45 05/14/20 24 05/14/2024 urina lysis , dipst ick Nitrite negati ve Not Available [address], [place], [address], 05/14/2024 20:24:45 05/14/20 24 05/14/2024 urina lysis , dipst ick Urobilinogen .2 Not Available [address], [place], [address], 05/14/2024 20:24:45 05/14/20 24 05/14/2024 urina lysis , dipst ick Protein 100 Not Available [address], [place], [address], 05/14/2024 20:24:45 05/14/20 24 05/14/2024 urina lysis , dipst ick pH 5.0 Not Available [address] [address], [place], [address], 05/14/2024 20:24:45 05/14/20 24 05/14/2024 urina lysis , dipst ick Blood Negati ve Not Available [address], [place], [address], 05/14/2024 20:24:45 05/14/20 24 05/14/2024 urina lysis , dipst ick Specific [place] 1.015 Not Available [address], [place], [address], 05/14/2024 20:24:45 05/14/20 24 05/14/2024 urina lysis , dipst ick Ketone Trace Not Available [address] [address], [place], [address], 05/14/2024 20:24:45 05/14/20 24 05/14/2024 urina lysis , dipst ick Bilirubin Small Not Available [address], [place], [address], 05/14/2024 20:24:45 05/14/20 24 05/14/2024 urina lysis , dipst ick Glucose Negati ve Not Available [address], [place], [address], 05/14/2024 20:24:45 05/14/20 24 05/14/2024 urina lysis , dipst ick Appearance Clear Not Available [address], [place], [address], 05/14/2024 20:24:45 05/14/20 24 05/14/2024 urina lysis , dipst ick Color Dark Yellow Not Available [address], [place], [address], 05/14/2024 20:24:45 06/12/20 24 06/12/2024 x-ray imagi ng repor t Obdulia t Name: Martha Payton Unit #: [id number] Loc: ER Orderi ng [facility] er: Enid Correa M.D. Accoun t #: [id number] Status : REG ER Primar y Care [facility] er: Yulissa Lainez Date of Exam: 05/24 [...] ION DOSE DELIVE RED: Ordere d By: Enid Correa M.D. CC: ------ ------ ------ ------ ------ ------ ------ ------ ------ ------ ------ ------ - Dictat ed By: Aden Johnston M.D. 1828 Transc ribed By: Vickie RODRIGUEZ,How kendra 1828 This is privil eged, confid [...] the addres s above. Thank- you. INTERFACE [facility] [address], [place], [address] 06/12/2024 18:34:32 06/12/20 24 06/12/2024 x-ray imagi ng ofelia wilde Name: Martha Payton Unit #: [id number] Loc: ER Orderi ng Provid er: Enid Correa M.D. Accoun t #: [id number] Status : REG ER Primar y [...] ION DOSE DELIVE RED: Ordere d By: Enid Correa M.D. CC: ------ ------ ------ ------ [...] error, please notify us immedi ately at [phone] and return the origin al report to us at the addres s above. Thank- you. INTERFACE [facility] [address], [place], [address] 06/12/2024 18:34:33 06/12/20 24 06/12/2024 CT imagi ng repor t Patikatie t Name: Martha Payton Unit #: [id number] Loc: ER Orderi ng Provid er: Enid Correa M.D. Accoun t #: [id number] Status : REG ER Primar y [...] Dose Index Regist ry (DIR) with the [place] of Radiol ogy (ACR). RADIAT ION OPTIMI [...] DLP = 0.00 mGy-cm Ordere d By: Enid Correa M.D. CC: ------ ------ ------ ------ [...] the addres s above. Thank- you. INTERFACE [address] [place], [address] 06/12/2024 18:43:33 06/12/20 24 06/12/2024 vrad ofelia t Obdulia t Name: Martha Payton Unit #: [id number] Loc: ER Orderi ng Provid er: Accoun t #: [id number] Status : REG ER Primar y [...] FINDIN GS: ANTERI OR CIRCUL ATION: Right international logistics manager al caroti d artery : Calcif ied plaque with severe stenos is cavern ous right ICA. Right middle cerebr al artery : Modera te to severe stenos is garnisher ior M3 branch right MCA. No signif icant stenos is remain lien of the right MCA. Right anteri or cerebr al artery : No occlus ion or signif icant stenos is. No aneury sm. Left international logistics manager al caroti d artery : Calcif ied plaque with modera te stenos is cavern ous left ICA. Left middle cerebr al artery : No occlus ion or signif icant stenos is. No aneury sm. Left anteri or cerebr al artery : No occlus ion or signif icant stenos is. No aneury sm. [employer] IOR CIRCUL ATION: Right verteb ral artery : No occlus ion or signif icant stenos is. No aneury sm. Left verteb ral artery : No occlus ion or signif icant stenos is. No aneury sm. Basila r artery : No occlus ion or signif icant stenos is. No aneury sm. Right garnisher ior cerebr al artery : No occlus ion or signif icant stenos is. No aneury sm. Left garnisher ior cerebr al artery : No occlus ion or signif icant stenos is. No aneury sm. HEAD: Brain: Stable right garnisher ior fronta l and pariet al infarc [...] rkable . IMPRES NATASHA: 1. Stable right garnisher ior fronta l and pariet al infarc t. 2. 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 3. Calcif ied plaque with modera te stenos is cavern ous left ICA. 4. Modera te to severe stenos is garnisher ior M3 branch right MCA. ASSESS MENT: [...] No dissec tion or occlus ion. Right international logistics manager al caroti d artery : No stenos is of the extrac ranial segmen t. No dissec tion or occlus ion. Right national accounts recruiter al caroti d artery : No occlus ion or stenos is of the origin . Left common caroti d artery : No stenos is. No dissec tion or occlus ion. Left international logistics manager al caroti d artery : No stenos is of the extrac ranial segmen t. No dissec tion or occlus ion. Left national accounts recruiter al caroti d artery : No occlus [...] the cervic al segmen t of the international logistics manager al caroti d artery is based on NASCET criter ia. Normal is no stenos is. Mild is less than 50% stenos is. Modera te is 50-69% stenos is. Severe is 70% to 99% stenos is. Total occlus ion is no detect able patent lumen. Dictat ed and Daphnie sanchez d by: Abelardo Nagel MD. Thania ng:P.D ISST Shelby pina MD Access ion#=[id number] Gin d By: CC: ------ ------ ------ ------ [...] at the addres s above. Thank- you. [email or web address] [facility] [address] [place], [address] 06/15/2024 15:45:36 06/13/20 24 06/13/2024 vrad repor t Patikatie t Name: Martha Payton Unit #: [id number] Loc: MS Thania barrios Provid er: Accoun t #: [id number] Status : ADM IN Primar y [...] st. COMPAR JA: CT BRAIN NECK CTA 8:34 PM FINDIN [...] MD. Orderi ng:Peyton Zhou MD Access ion#=[id number] Ordere d By: CC: ------ ------ ------ ------ ------ ------ ------ ------ ------ ------ ------ ------ ---- Dictat ed By: Report s vrad 0906 1028 Transc ribed By: Chelsea Merge 09 This is privil eged, confid ential inform ation intend ed only for the provid er named. Any use or distri bution by any person other than this provid er is strict ly prohib ited. If you receiv e this report in error, please notify us immedi ately at and return the origin al report to us at the addres s above. Thank- you. [email or web address] [facility] [address] [place], [address] 06/15/2024 15:45:36 06/13/2006/13/2024 CT imagi ng repor t Patikatie t Name: Martha Payton Unit #: [id number] Loc: Orderi ng Provid er: Enid Correa M.D. Accoun t #: [id number] Status : ADM IN Primar y Care Provid er: FatouYulissa hanh Date of Exam: 05/24 10/15 Sex: [...] right side there is calcif ied plaque garnisher iorly at the caroti d bulb-b ifurca tion level and there is also calcif ied plaque on the medial and garnisher ior saldaña of the proxim al right ICA. Amount of stenos is at this level is estima liz at approx imatel y 40 percen t in the proxim al right ICA. The right ICA is nicely patent in the upper neck. Left caroti d bulb exhibi ts some calcif ied plaque anteri sherry. There is calcif ied plaque on the garnisher ior wall the proxim al left ICA. Approx imatel y 30 percen t stenos is at this level. There is also self like plaque at the origin left ICA with more promin ent stenos is at this level, approx imatel y 70 percen t. Left ICA in the upper neck is patent . Voip Engineer ior circul ation: Both verteb ral arteri [...] Brain W: Anteri or circul ation: Both international logistics manager al caroti d arteri es are patent in the skull base-c arotid canals . Both intra cavern ous international logistics manager al caroti d arteri es are periph erally calcif ied. There is a signif icant focal stenos is at the juncti on of the intra cavern ous and suprac linoid aspect of the right international logistics manager al caroti d artery with approx imatel [...] or commun icatin g artery . Left garnisher ior cerebr al artery is patent withou t signif icant stenos is. There is mild-m oderat e narrow ing in the proxim al right middle cerebr al artery . No intral uminal thromb us seen. No aneury sms. No dissec tion flaps. Voip Engineer ior circul ation: The basila r artery ascend s in the midlin e. Distal ly it gives off patent right garnisher ior cerebr al artery althou gh there is a modera te stenos is in the garnisher ior cerebr al artery a few cm distal to its origin . The left garnisher ior cerebr al artery is predom inantl y fed by a garnisher ior commun icatin g artery on the left side of the [place]. This that There is no eviden ce of aneury sm at the tip of the basila r artery nor elsewh ere in the [place]. CT BRAIN: Again noted is [...] facili ty are submit liz to the [facility] Radiol ogy Data Regist ry (NRDR) Dose [...] DLP = 0.00 mGy-cm Ordere d By: Enid Correa M.D. CC: ------ ------ ------ ------ ------ ------ ------ ------ ------ ------ ------ ------ ---- Dictat ed By: Aden Johnston M.D. 1545 1545 Transc ribed By: Vickie RODRIGUEZ,Yessenia kendra 1545 This is privil eged, confid ential inform ation intend ed only for the provid er named. Any use or distri bution by any person other than this provid er is strict ly prohib ited. If you receiv e this report in error, please notify us immedi michellely at [phone] and return the origin al report to us at the addres s above. Thank- you. INTERFACE [facility] [address] [place], [address] 06/13/2024 15:50:13 06/13/20 24 06/13/2024 CT imagi ng repor t Patikatie t Name: Martha Payton Unit #: [id number] Loc: MS Thania barrios Provid er: Sanjana jianenid,Da vid Accoun t #: [id number] Status : ADM IN Primar [...] upon the adjace nt latera l ventri lalen. No shift. No eviden ce of intrav [...] tion); or iterat marc recons tructi on. 921- 001: Total DLP = 0.00 mGy-cm Ordere d By: Jabari Bustamante CC: ------ ------ ------ ------ ------ ------ ------ ------ ------ ------ ------ ------ ---- Dictat ed By: Aden Johnston M.D. 1602 1602 Transc ribed By: Vickie RODRIGUEZ,Yessenia gardner 1602 This is privil eged, confid ential [...] the addres s above. Thank- you. INTERFACE [facility] [address] [place] [address] [place], [address] 06/13/2024 16:16:16 06/14/20 24 06/14/2024 MRI imagi ng repor t Patien t Name: Martha Payton Unit #: [id number] Loc: MS Orderi ng Provid er: Sanjana cornel,Da ca Accisael t #: [id number] Status : ADM IN Primar [...] the addres s above. Thank- you. INTERFACE [facility] [address] [place], [address] 06/14/2024 12:37:22 06/14/20 24 06/14/2024 ultra sound imagi ng repor t Patien t Name: Martha Payton Unit #: [id number] Loc: MS Orderi ng Provid er: Jabari Bustamante Accoun t #: [id number] Status : ADM IN Primar y Care Provid er: Yulissa Lainez Date of Exam: 05/24 12/13 Sex: F Admiss ion Date: : 1949 Age: 73 ------ ------ --- APPROV ED REPORT ------ ------ -- EXAM: Compre hensiv e 2D, Dopple r, and color- flow Echoca rdiogr am Patien t Locati on: In-Pat ient Room/B ed: [...] error, please notify us immedi ately at [phone] and return the origin al report to us at the addres s above. Thank- you. INTERFACE [facility] [address] , [place], [address] 06/14/2024 15:22:54 Result Notes None recorded. Problems Name Problem SNOMED Code Status Onset Date Resolution Date Notes Provider Name and Address Organization Details Recorded Time Poor short-term memory 641197273 Active [address], [place], [address] , [facility] 4 10:28:13 Essential hypertensi on 18950997 Active [address], [place], [address] [place] [address] 4 10:29:23 Blood glucose outside reference range 303777744 Active [address], [place], [address], [facility] 4 10:30:43 Iritis 36544534 Active [address], [place], [address], [facility] 4 10:31:43 Tobacco dependence caused by cigarettes 911336140856 36787 Active [address], [place], [address], [facility] 4 12:23:42 Adjustment disorder with depressed mood 74309973 Active [address], [place], [address], [facility] 4 12:26:28 Prediabete s 044960922 Active 2023 5.7% on [address], [place], [address], [facility] 4 07:52:17 History of coronary artery bypass grafting 274031974 Active 2009 In 2009 per prior med recs [address], [place], [address], [facility] 4 14:53:13 Unexplaine d weight loss 860887780 Active [address], [place], [address], [facility] 4 13:43:55 Chronic cough 69506227 Active [address], [place], [address], [facility] 4 13:44:00 Pain of left shoulder joint 843254544687 08852 Active [address], [place], [address], [facility] 13:44:16 Hyperlipid emia 57670248 Active [address], [place], [address], [facility] 13:48:11 Chronic obstructiv e pulmonary disease 28870381 Active [address], [place], [address], [facility] 13:49:36 Lacunar infarction 715891439 Active [address], [place], [address], [facility] 18:17:27 Bradycardi a 89891557 Active [address], [place], [address], [facility] 18:36:12 Chronic kidney disease stage 3B 313880294 Active 2023 NOted in 1 Note in prior MR as stage 3 D/T HTN. Plan to control BP as care plan. 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 833391042 Active [address], [place], [address], [facility] 08:09:53 Hypokalemi a 81440898 Active [address], [place], [address], [facility] 08:10:59 Sundowning 111260624 Active [address], [place], [address], [facility] 08:12:54 Loose stool 730121402 Active [address], [place], [address], [facility] 09:45:26 Unsteady when walking 52267760 Active [address], [place], [address], [facility] 4 10:02:59 Decreased diastolic arterial pressure 36802591 Active 2023 [address], [place], [address], [facility] 4 10:04:18 Problem Notes None recorded. Medical Equipment None Reported. Allergies Allergen ID Allergen Name Allergen Category Reaction Reaction Severity Criticality Documentation Date Start Date Code Code System Note Provider Name and Address Organization Details Recorded Time 91772 chlorthal idone medicatio n Not available Not available [facility] 01/28/2024 2409 RxNorm [address], [place], [address], [facility] 17:56:24 29162 hydrochlo rothiazid e medicatio n Not available Not available [facility] 01/28/[address], [place], [address] , [facility] 4 17:56:38 Medications Name Sig Start Date Stop Date Status Note LastModified by Organization Details LastModified Time losartan 50 mg tablet Take 1 tablet twice a day by oral route as directed . 2023 [facility] Not Available Not Available Not Available quetiapin e 25 mg tablet 1 tablet by mouth each night 2023 active Not Available Not Available Not Avai lable atorvasta tin 80 mg tablet Take 1 tablet every day by oral route at bedtime. 2023 active updated from [facility] EMR Not Available Not Available Not Available cefuroxim e axetil 250 mg tablet Take 1 tablet by oral route. 2023 active Not Available Not Available Not Avai lable atorvasta tin 20 mg tablet 1 tablet by mouth each evening to lower choleste rol 07/01 completed Not Available Not Available Not Available trazodone 50 mg tablet 1 tab by mout that night 2023 active Not Available Not Available Not Avai lable aspirin 325 mg tablet Take 1 tablet every day by oral route as needed. 07/01 completed Not Available Not Available Not Available sodium bicarbona te 325 mg tablet Take 2 tablets every day by oral route as directed . 2023 active per [facility] EMR Not Available Not Available Not Available clopidogr el 75 mg tablet Take 1 tablet every day by oral route as directed . 07/09 completed Per D/C instruct ions/vas cular guidance d/c Plavix after 3 weeks, continui ng aspirin Not Available Not Available Not Available amlodipin e 5 mg tablet Take 1 tablet every day by oral route as directed . 2023 active Updated from [facility] EMR Not Available Not Available Not Available aspirin 81 mg tablet,de layed release Take 1 tablet every day by oral route. 2023 active Pt. should be on aspirin for life Not Available Not Available Not Available losartan 25 mg tablet Take 1 tablet [...] route as directed . 2023 active Per [facility] EMR Not Available Not Available Not Available [...] completed Not Available Not Available Not Available Seroquel 50 mg tablet Take 1 tablet every day by oral route in the evening. 07/09 completed to be taken 1 to 1.5 hours before bedtime Not Available Not Available Not Available psyllium husk 0.4 gram capsule Take 1 to 2 capsules by mouth BID, max 4 per day 2023 active Not Available Not Available Not Avai lable Vitals Date Recorded Body height Body mass [...] Last Updated DateTime 147.32 cm 20.5 kg/m2 38489.4 5 g 98.1 [degF] 99 % 99 % 62 /min 18 /min 195 mm[Hg] 63 mm[Hg] 211 mm[Hg] 102 mm[Hg] 210 mm[Hg] 75 mm[Hg] 199 mm[Hg] 66 mm[Hg] Keesha Zaragoza MA [facility] 21:02:19 Social History Question Answer Notes LastModified by Organizat ion Details LastModified Time Tobacco Smoking Status Current Every Day Smoker Kylah Almonte MA [facility], [facility] 11/01/2023 11:33:08 Would You Say That, [...] Of Your Most Recent Tobacco Screening? 05/14/2024 Information n ot available 05/14/2024 How Much Tobacco Do You Smoke? 0.5 PPD [email or web address] Information not available 05/14/2024 Has Tobacco Cessation Counseling Been Provided? Yes Information not available 11/01/2023 On What Date Was Tobacco Cessation Counseling Provided? 05/14/2024 [email or web address] Information not available 05/14/2024 Do You Or [...] GPAL:G 0 P 0 0 0 0 Immunizations Vaccine Type Date Status Provider Name and Address Organization Details Recorded Time Influenza, high-dose, trivalent, PF 07/09/2024 completed [address], [place], [address], [facility] 07/09/2024 11:46:08 COVID-19, mRNA, LNP-S, PF, angie-sucrose, 30 mcg/0.3 mL 07/09/[address], [facility] [address], [facility] 07/09/2024 11:46:08 Tdap 07/09/[address], [facility] [address] 07/09/2024 11:46:08 Past Encounters Encounter ID Performer Location Encounter Start Date Encounter Closed Date Diagnosis/Indication Diagnosis SNOMED-CT Code Diagnosis ICD10 Code [id number] ISATU ZAMORA PA-C [address] [place] [address] 05/14/2024 18:33:21 05/14/2024 21:16:51 Pyuria 3523532 R82.81 Health Concerns Section Related Observation LastModified by Organization Detai ls LastModified Time None Recorded Concern Status LastModified by Organization Details LastModified Time None Recorded Payers Encounter Date Sequence Insurance Name Policy Number Policy Nicole Covered Member ID Nicole Member ID Guarantor Name 05/14/2024 2 [facility] (MEDICAID) Jennifer Archer [id number] Jennifer Archer 05/14/2024 1 [place] [employer] Jennifer Archer [id number] Jennifer Archer Notes Date Note Type [...] actually seems somewhat clear at this time. ISATU ZAMORA PA-C [address], [place], [address], [facility]. 05/15/2024 13:54:05 OBGyn Episode No OBEpisode recorded.
--- OUTSIDE RECORDS SUMMARY | 2024-07-12 16:53 | XMS_ITS | Continuity of Care Document ---
Author Organization [place] - [facility] [place] [address] Assessment Encounter Date Assessment Date Assessment LastModified by Organization Details LastModified Time 07/09/2024 07/09/2024 Supports at home: - OT, Nursing, Social Work workers compensation consultant, Donna please w/supports. For Annual in September: Consider DEXA/risk factors of former smoker: Mammography: Life expectancy < 10 years, especially given recent stroke and advancing dementia, won't recommend future mammograms unless symptomatic. - Advanced Directive not on file [email or web address] Not available 07/09/2024 11:48:19 Plan of Treatment Reminders Order Date Submit Date Provider Last Modified By Organization Details Last Modified Time Details Appointments Follow Up 30 2023 08:30A M Eduardo Lainez Not available Not available Not available Annual Wellness Exam 40 2024 02:30P M Eduardo Fatou Not available Not available Not available Lab CBC w/ auto diff 2023 024 NUNO [facility] (Registration ), [address] [place] [address] [place], [address], 07/09/2024 16:14:29 BMP, serum or plasma 2023 024 [facility] (Registration ), [address] [place] [address] [place], [address], 07/09/2024 12:48:00 magnesium , serum or plasma 2023 024 [email or web address] [facility] (Registration ), [address] [place] [address] [place], [address], 07/09/2024 12:48:00 Referral None recorded. Procedures None recorded. Surgeries None recorded. Imaging None recorded. Medication Orders psyllium husk 0.4 gram capsule 2023 [id number], [address] [place], [place], [phone], 07/09/2024 11:47:17 trazodone 50 mg tablet 2023 [facility] #[id number], [address] [place], [place], [phone], 07/09/2024 11:47:17 Patient TargetsNo targets recorded. Patient Instructions Encounter Date Encounter Id Patient Instructions Last Modified By Organization Details Last Modified Time 07/09/2024 [id number] Keep the environment dark during the night and bright during the day [91] Consistent wake and sleep times. Reduce noise at night Eliminate unnecessary nocturnal awakenings for vital signs and medication administration When possible, match roommates living in institutions based on their sleep-wake patterns - Quetiapine back to 25 mg. Do let me know if her unsteadiness does not resolve. - Trial of Trazodone Not available 07/09/2024 10:05:30 Reason for Referral Home Health Referral for Med ical child protective services social worker involved Requires SN in the home following d/c from [facility] for Right intraparenchymal CVA Referring Physician: Maximo Lainez, Family Medicine, Encounter Date: 07/05/2024 Color Worker Referral for edical child protective services social worker involved ANALOG CIRCUIT DESIGNER requested to assist patient and caregiver in transition home following CVA. Referring Physician: Maximo Lainez Family Medicine, Encounter Date: 07/05/2024 Results Created Date Observation Date Name Description Value Unit Range Abnormal Flag Note LastModifiedBy Organization Detail LastModifiedTime 06/12/20 24 06/12/2024 x-ray imagi ng repor t Patien t Name: Martha Payton Unit #: [id number] Loc: ER Orderi ng Provid er: Lacho Correa M.D. Accoun t #: [id number] Status : REG ER Primar y Care [facility] er: Yulissa Lainez Date of Exam: 05/24 [...] the addres s above. Thank- you. INTERFACE [address] [place], [address] 06/12/2024 18:34:32 06/12/20 24 06/12/2024 x-ray imagi ng repor t Patien t Name: Martha Payton Unit #: [id number] Loc: ER Orderi ng Provid er: Lacho Correa M.D. Accoun t #: [id number] Status : REG ER Primar y [...] the addres s above. Thank- you. INTERFACE [address] [place], [address] 06/12/2024 18:34:33 06/12/2006/12/2024 CT imagi ng repor t Patien t Name: Martha Payton Unit #: [id number] Loc: ER Orderi ng Provid er: Lacho Correa M.D. Accoun t #: [id number] Status : REG ER Primar y [...] error, please notify us immedi michellely at [phone] and return the origin al report to us at the addres s above. Thank- you. INTERFACE [facility] [address] [facility] [place], [address] 06/12/2024 18:43:33 06/12/2006/12/2024 vrad repor t Patien t Name: Martha Payton Unit #: [id number] Loc: ER Orderi ng Provid er: Accoun t #: [id number] Status : REG ER Primar y [...] GS: ANTERI OR CIRCUL ATION: Right international coordinator al caroti d artery : Calcif ied plaque with severe stenos is cavern ous right ICA. Right middle cerebr al artery : Modera te to severe stenos is hand booked folder and stitcher ior M3 branch right MCA. No signif icant stenos is remain lien of the right MCA. Right anteri or cerebr al artery : No occlus ion or signif icant stenos is. No aneury sm. Left international coordinator al caroti d artery : Calcif ied plaque with modera te stenos is cavern ous left ICA. Left middle cerebr al artery : No occlus ion or signif icant stenos is. No aneury sm. Left anteri or cerebr al artery : No occlus ion or signif icant stenos is. No aneury sm. OYSTER PREPARER IOR CIRCUL ATION: Right verteb ral artery : No occlus ion or signif icant stenos is. No aneury sm. Left verteb ral artery : No occlus ion or signif icant stenos is. No aneury sm. Basila r artery : No occlus ion or signif icant stenos is. No aneury sm. Right hand booked folder and stitcher ior cerebr al artery : No occlus ion or signif icant stenos is. No aneury sm. Left hand booked folder and stitcher ior cerebr al artery : No occlus ion or signif icant stenos is. No aneury sm. HEAD: Brain: Stable right hand booked folder and stitcher ior fronta l and pariet al infarc [...] rkable . IMPRES NATASHA: 1. Stable right hand booked folder and stitcher ior fronta l and pariet al infarc t. 2. 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 3. Calcif ied plaque with modera te stenos is cavern ous left ICA. 4. Modera te to severe stenos is hand booked folder and stitcher ior M3 branch right MCA. ASSESS MENT: [...] dissec tion or occlus ion. Right international coordinator al caroti d artery : No stenos is of the extrac ranial segmen t. No dissec tion or occlus ion. Right grants officer al caroti d artery : No occlus ion or stenos is of the origin . Left common caroti d artery : No stenos is. No dissec tion or occlus ion. Left international coordinator al caroti d artery : No stenos is of the extrac ranial segmen t. No dissec tion or occlus ion. Left grants officer al caroti d artery : No occlus [...] cervic al segmen t of the international coordinator al caroti d artery is based on NASCET criter ia. Normal is no stenos is. Mild is less than 50% stenos is. Modera te is 50-69% stenos is. Severe is 70% to 99% stenos is. Total occlus ion is no detect able patent lumen. Dictat ed and Daphnie sanchez d by: Abelardo Nagel MD. Ordermariola ng:PJosé Miguel ISST Shelby pina MD Access ion#=[id number] Gin torres By: CC: ------ ------ ------ ------ ------ ------ ------ ------ ------ ------ ------ ------ ---- Dictat ed By: Report s vrad 2033 Transc ribed By: Chelsea Chanel 2033 This is privil eged, confid ential inform ation intend ed only for the provid er named. Any use or distri bution by any person other than this provid er is strict ly prohib ited. If you receiv e this report in error, please notify us immedi ately at [phone] and return the origin al report to us at the addres s above. Thank- you. [facility] [address] [place], [address] 06/15/2024 15:45:36 06/13/20 24 06/13/2024 vrad repor t Patien t Name: Martha Payton Unit #: [id number] Loc: MS Monteiro ng Provid er: Accoun t #: [id number] Status : ADM IN Primar y [...] Authen ticate d by: Sofy Cordero MD. Ordermariola ng:Peyton Zhou MD Access ion#=[id number] Ordere d By: CC: ------ ------ ------ ------ ------ ------ ------ ------ ------ ------ ------ ------ ---- Dictat ed By: Report s vrad 09 1028 Transc ribed By: Di Merge 905 This is privil eged, confid [...] at the addres s above. Thank- you. [facility] [address], [place], [address] 06/15/2024 15:45:36 06/13/20 24 06/13/2024 CT imagi ng repor t Patien t Name: Martha Payton Unit #: [id number] Loc: MS Thania barrios Provid er: Lacho Correa M.D. Accoun t #: [id number] Status : ADM IN Primar y Care [facility] er: Yulissa Lainez Date of Exam: 05/24 10/15 Sex: F : 1949 Age: 73 Exam(s ) a CT:CT brain neck CTA Exam(s ) CT BRAIN NECK CTA EXAM: CT BRAIN NECK CTA CLINIC AL HISTOR Y: occipi arcaeli stroke . TECHNI QUE: Imagin g Protoc [...] right side there is calcif ied plaque hand booked folder and stitcher iorly at the caroti d bulb-b ifurca tion level and there is also calcif ied plaque on the medial and hand booked folder and stitcher ior saldaña of the proxim al right ICA. Amount of stenos is at this level is estima liz at approx imatel y 40 percen t in the proxim al right ICA. The right ICA is nicely patent in the upper neck. Left caroti d bulb exhibi ts some calcif ied plaque anteri sherry. There is calcif ied plaque on the hand booked folder and stitcher ior wall the proxim al left ICA. Approx imatel y 30 percen t stenos is at this level. There is also self like plaque at the origin left ICA with more promin ent stenos is at this level, approx imatel y 70 percen t. Left ICA in the upper neck is patent . Retanned Leather Roller ior circul ation: Both verteb ral arteri [...] W: Anteri or circul ation: Both international coordinator al caroti d arteri es are patent in the skull base-c arotid canals . Both intra cavern ous international coordinator al caroti d arteri es are periph erally calcif ied. There is a signif icant focal stenos is at the juncti on of the intra cavern ous and suprac linoid aspect of the right international coordinator al caroti d artery with approx imatel [...] or commun icatin g artery . Left hand booked folder and stitcher ior cerebr al artery is patent withou t signif icant stenos is. There is mild-m oderat e narrow ing in the proxim al right middle cerebr al artery . No intral uminal thromb us seen. No aneury sms. No dissec tion flaps. Retanned Leather Roller ior circul ation: The basila r artery ascend s in the midlin e. Distal ly it gives off patent right hand booked folder and stitcher ior cerebr al artery althou gh there is a modera te stenos is in the hand booked folder and stitcher ior cerebr al artery a few cm distal to its origin . The left hand booked folder and stitcher ior cerebr al artery is predom inantl y fed by a hand booked folder and stitcher ior commun icatin g artery on the left side of the [place]. This that There is no eviden ce of aneury sm at the tip of the basila r artery nor elsewh ere in the [place]. CT BRAIN: Again noted is [...] exhibi ting multip le stenos es. Nevert elliott , does contri bute to the format ion of the basila r artery at the skull base. 4. There are no ring enhanc ing lesion s in the brain. RADIAT ION DOSE DELIVE RED: 1,900. 42mGy. cm Total DLP DATA REPOSI TORY: All CT scans at this facili ty are submit ilz to the [facility] al Radiol ogy Data Regist ry (NRDR) [...] indica tion); or iterat marc recons tructi on 017: Total DLP = 0.00 mGy-cm Ordere [...] the addres s above. Thank- you. INTERFACE [facility] [address], [place], [address] 06/13/2024 15:50:13 06/13/20 24 06/13/2024 CT imagi ng repor t Patien t Name: Martha Payton Unit #: [id number] Loc: Orderi ng Provid er: Jabari Bustamante Accisael t #: [id number] Status : ADM IN Primar y Care Provid er: Fatou Danalaney schafer Date of Exam: 05/24 11/15 Sex: F [...] facili ty are submit liz to the [facility] al Radiol ogy Data Regist ry (NRDR) [...] the addres s above. Thank- you. INTERFACE [facility] [address], [place], [address] 06/13/2024 16:16:16 06/14/20 24 06/14/2024 MRI imagi ng repor t Patikatie t Name: Martha Payton Unit #: [id number] Loc: Orderi ng Provid er: Jabari Bustamante Accisael t #: [id number] Status : ADM IN Primar [...] - Dictat ed By: Satinder Odonnell M.D. 122 1223 Transc ribed By: Satinder Odonnell 1223 This is privil eged, confid ential inform ation intend ed only for the provid er named. Any use or distri bution by any person other than this provid er is strict ly prohib ited. If you receiv e this report in error, please notify us immedi ately at [phone] and return the origin al report to us at the addres s above. Thank- you. INTERFACE [facility] [address], [place], [address] 06/14/2024 12:37:22 06/14/20 24 06/14/2024 ultra sound imagi ng repor t Obdulia t Name: Martha Payton Unit #: [id number] Loc: Ordermariola ng Provid er: Sanjana unger,Da vid Accoun t #: [id number] Status : ADM IN Primar y Care [facility] er: Yulissa Lainez Date of Exam: 05/24 [...] this report in error, please notify us immedmariola martinezly at [phone] and return the origin al report to us at the addres s above. Thank- you. INTERFACE [address] , [place], [address] 06/14/2024 15:22:54 Result Notes None recorded. Problems Name Problem SNOMED Code Status Onset Date Resolution Date Notes Provider Name and Address Organization Details Recorded Time Poor short-term memory 084059476 Active [address], [place], [address], [facility] 4 10:28:13 Essential hypertensi on 71041473 Active [address], [place], [address], [facility] 4 10:29:23 Blood glucose outside reference range 733694793 Active [address], [place], [address], [facility] 4 10:30:43 Iritis 67357315 Active [address], [place], [address], [facility] 4 10:31:43 Tobacco dependence caused by cigarettes 339251686757 39703 Active [address], [place], [address], [facility] 4 12:23:42 Adjustment disorder with depressed mood 55392179 Active [address], [place], [address], [facility] 4 12:26:28 Prediabete s 412931464 Active 2023 5.7% on [address], [place], [address], [facility] 4 07:52:17 History of coronary artery bypass grafting 027265592 Active 2009 In 2010 per prior med recs [address], [place], [address] , [facility] 14:53:13 Unexplaine d weight loss 905417924 Active [address], [facility] [address], [facility] 13:43:55 Chronic cough 51351762 Active [address], [facility] [address] , [facility] 13:44:00 Pain of left shoulder joint 308677674423 58734 Active [address], [facility] [address] , [facility] 13:44:16 Hyperlipid emia 10189032 Active [address], [facility] [address] , [facility] 13:48:11 Chronic obstructiv e pulmonary disease 60654348 Active [address], [facility] [address] , [facility] 13:49:36 Lacunar infarction 300389576 Active [address], [place], [address] , [facility] 18:17:27 Bradycardi a 54529098 Active [address], [facility] [address], [facility] 4 18:36:12 Chronic kidney disease stage 3B 792147091 Active 2023 NOted in 1 Note in prior MR as stage 3 D/T HTN. Plan to control BP as care plan. [address], [place], [address], [facility] 4 05:24:31 Pulmonary emphysema 73040266 Active [address], [place], [address], [facility] 4 12:31:17 Leukocytos is 525479229 Active 2023 ISATU ZAMORA PA-C [address], [place], [address], [facility] 4 20:10:17 Pyuria 6560967 Active [address], [place], [address], [facility] 4 20:12:07 Agitation due to dementia 455302301 Active [address], [place], [address], [facility] 4 16:19:39 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 496576691 Active [address], [place], [address], [facility] 4 08:09:53 Hypokalemi a 95715135 Active [address], [place], [address], [facility] 08:10:59 Sundowning 099317542 Active [address], [place], [address], [facility] 08:12:54 Loose stool 634831425 Active [address], [facility] [address], [facility] 09:45:26 Unsteady when walking 70948451 Active [address], [facility] [address], [facility] 10:02:59 Decreased diastolic arterial pressure 09876285 Active [address], [facility] [address], [facility] 10:04:18 Problem Notes None recorded. Medical Equipment None Reported. Allergies Allergen ID Allergen Name Allergen Category Reaction Reaction Severity Criticality Documentation Date Start Date Code Code System Note Provider Name and Address Organization Details Recorded Time 59564 chlorthal idone medicatio n Not available Not available [facility] 01/28/[address], [place], [address], [facility] 17:56:24 85251 hydrochlo rothiazid e medicatio n Not available Not available [facility] 01/28/[address], [place], [address] , [facility] 17:56:38 Medications Name Sig Start Date Stop Date Status Note LastModified by Organization Details LastModified Time losartan 50 mg tablet Take 1 tablet twice a day by oral route as directed . 2023 active Per [facility] EMR Not Available Not Available Not Available quetiapin e 25 mg tablet 1 tablet by mouth each night 2023 active Not Available Not Available Not Avai lable atorvasta tin 80 mg tablet Take 1 tablet every day by oral route at bedtime. 2023 active updated from [employer] EMR Not Available Not Available Not Available [...] route as directed . 2023 active [facility] Not Available Not Available Not [...] as directed . 2023 active Updated from [employer] [facility] Not Available Not Available Not Available aspirin [...] route as directed . 2023 active Per [facility] EMR Not Available Not Available Not Available [...] saturation in Arterial blood by Pulse oximetry Respiratory rate Heart rate Systolic blood pressure Diastolic blood pressure Provider Name and Address Organization Details Last Updated DateTime 147.32 cm 19.9 kg/m2 90236.9 9 g 98.6 [degF] 100 % 100 % 14 /min 70 /min 108 mm[Hg] 48 mm[Hg] SUKHDEV TORIBIO RN [facility] 09:38:14 Social History Question Answer Notes LastModified by Organizat ion Details LastModified Time Tobacco Smoking Status Current Every Day Smoker [place], [facility] 11/01/2023 11:33:08 Would You Say That, In [...] Much Tobacco Do You Smoke? 0.5 PPD [email or web address] Information not available 05/14/2024 Has Tobacco Cessation Counseling Been Provided? Yes Information not available 11/01/2023 On What Date Was Tobacco Cessation Counseling Provided? 05/14/2024 [email or web address] Information not available 05/14/2024 Do You Or [...] high-dose, trivalent, PF 07/09/[address], [facility] [address] [place] [address] 07/09/2024 11:46:08 COVID-19, mRNA, LNP-S, PF, angie-sucrose, 30 mcg/0.3 mL 07/09/[address], [facility] [address], [facility] 07/09/2024 11:46:08 Tdap 07/09/[address], [facility] [address] 07/09/2024 11:46:08 Past Encounters Encounter ID Performer Location Encounter Start Date Encounter Closed Date Diagnosis/Indication Diagnosis SNOMED-CT Code Diagnosis ICD10 Code [id number] MARIAM FANG [facility] [address] [place] [address] 07/09/2024 09:29:21 07/09/2024 10:24:04 Right sided cerebral hemisphere cerebrovascular accident 403719306 I63.9 Hypokalemia 95408913 E87 .6 Essential hypertension 70934897 I10 Sundowning 471616369 F05 Loose stool 596189631 R1 9.5 Unsteady when walking 22 370379 R26.89 Decreased diastolic arterial pressure 19575077 R03.1 Active or passive immunization 550342268 Z23 Health Concerns Section Related Observation LastModified by Organization Detai ls LastModified Time None Recorded Concern Status LastModified by Organization Details LastModified Time None Recorded Payers Encounter Date Sequence Insurance Name Policy Number Policy Nicole Covered Member ID Nicole Member ID Guarantor Name 07/09/2024 2 [facility] (MEDICAID) Jennifer Deyvi Archer [id number] Jennifer Archer 07/09/2024 1 [place] [employer] Jennifer Archer [id number] Jennifer Archer Notes Date Note Type Note Provider Name and Address Organization Details Recorded Time 07/09/2024 text/html HPI Notes: Pt, [age]-F, here for MARIAH after d/c from [facility] 06/17/2024 for Subacute right occipital CVA, hypertension. Pt. started on 3-week course of Plavix and aspirin 81 mg which rec'd she take for life. Having some trouble with potassium retention during hospital stay. Sleep: Was better last night. Rough night before. We had increased quetiapine which helped night number 1, not so much the second, and then she slept better last night. Unsteadiness: New lightheadedness since quetiapine dose increase Emilhy just noticed. Low diastolic pressure today. MARIAM FANG [address], [place], [address], [facility]. 07/09/2024 11:48:31 OBGyn Episode No OBEpisode recorded.
--- OUTSIDE RECORDS SUMMARY | 2024-07-12 16:53 | XMS_ITS | Data Portability ---
Author Organization [place] - [facility] [place] [address] Assessment Encounter Date Assessment Date Assessment LastModified by Organization Details LastModified Time 01/28/2024 01/28/2024 Appointment slightly scattered with unexplained weight loss, so Donna venture capital analyst agreeable to have pt. back in office for EKG in light of Lacunar Infarct/Bradyc ardia today. We will hold off on cardiac monitoring order to do the EKG in office first. [email or web address] Not available 01/28/2024 18:41:23 07/09/2024 07/09/2024 Supports at home: - OT, Nursing, Social Work grey roll worker, Donna please w/supports. For Annual in September: Consider DEXA/risk factors of former smoker: Mammography: Life expectancy < 10 years, especially given recent stroke and advancing dementia, won't recommend future mammograms unless symptomatic. - Advanced Directive not on file [email or web address] Not available 07/09/2024 11:48:19 Plan of Treatment Reminders Order Date Submit Date Provider Last Modified By Organization Details Last Modified Time Details Appointments Follow Up 30 2023 08:30A M Eduardo Fatou Not available Not available Not available Annual Wellness Exam 40 2024 02:30P M Eduardo Fatou Not available Not available Not available Lab lipid panel, serum [email or web address] [facility] (Registration ), [address] [place] [address] [facility], [address], 12/18/2023 08:29:02 vitamin B12 + folate, serum or blood - 1 SST, 1LAV, 1TIGER [address] [facility] (Registration ), [address] [place] [address] [place], [address], 12/18/2023 08:29:01 TSH, serum or plasma [address] [facility] (Registration ), [address] [place] [address] [place], [address], 12/18/2023 08:29:02 HIV (1+2) Ab screen, serum [address] [facility] (Registration ), [address] [place] [address] [place], [address], 12/18/2023 08:29:02 RPR (rapid plasma reagin), serum [address] [facility] (Registration ), [address] [place] [address] [place], [address], 12/18/2023 08:29:02 CMP, serum or plasma [address] [facility] (Registration ), [address] [place] [address] [place], [address], 12/11/2023 17:36:51 magnesium , serum or plasma [address] [facility] (Registration ), [address] [place] [address] [place], [address], 12/18/2023 08:29:02 HbA1c (hemoglob in A1c), blood [address] [facility] (Registration ), [address] [place] [address] [place], [address], 12/18/2023 08:29:02 CBC w/ auto diff - 1 SST, 1 LAV [email or web address] [facility] (Registration ), [address] [place] [address] [place], [address], 01/28/2024 21:28:19 CMP, serum or plasma 2023 024 [email or web address] [facility] (Registration ), [address] [place] [address] [place], [address], 01/28/2024 21:28:19 TSH + free T4, serum 2023 024 [facility] (Registration ), [address] [place] [address] [place], [address], 02/04/2024 10:03:18 lipid panel, serum [email or web address] [facility] (Lab Direct), [address] [place] [address] [place], [address], 05/25/2024 11:29:30 culture, urine + sensitivi ty 2023 024 [facility] (Registration ), [address] [place] [address] [place], [address], 05/17/2024 08:14:58 microscop ic method, urine 2023 024 [facility] (Registration ), [address] [place] [address] [place], [address], 05/15/2024 08:48:21 urinalysi s, dipstick 2023 024 [email or web address] [facility], [address], [address], [place], [address], 05/14/2024 20:40:44 CBC w/ auto diff 2023 024 [facility] (Registration ), [address] [place] [address] [place], [address], 07/09/2024 16:14:29 BMP, serum or plasma [email or web address] [facility] (Registration ), [address] [place] [address] [place], [address], 07/09/2024 12:48:00 magnesium , serum or plasma [email or web address] [facility] (Registration ), [address], [place], [address], 07/09/2024 12:48:00 Referral None recorded. Procedures None recorded. Surgeries None recorded. Imaging MRI, brain, w/o contrast - No PA RequirdPt , 73-F, with undiagnos ed short term memory loss for MRI imaging to assess intracran ial pathology possibly related to this including microvasc ular disease, mass or lesion. Her most recent GFR 11/05/2023 at [facility] was 37, BUN [address] [facility], [address], [place], [address], 01/19/2024 14:23:08 MR, angiogram , head + neck, w/wo contrast - Pt. with incidenta l finding of lacunar infarct on 01/19/2024 MRI of head ordered for cognitive decline, but no acute symptoms change in last 4-months per caregiver report that correlate with stroke symptoms. [email or web address] [facility], [address], [place], [address], 02/02/2024 08:16:45 US, echocardi ogram - Pt. with 01/19/2024 incidenta l finding of lacunar infarct on Brain MRI. Pt.withou t known A-fib, but does have extensive smoking history. [email or web address] [facility], [address], [place], [address], 03/09/2024 14:42:08 CT, chest, w/o contrast - [...] 2023 024 [email or web address] [facility], [address], [place], [address], 03/10/2024 10:39:10 Medication Orders atorvasta tin 20 mg tablet [address] [facility], [address] [place] [address], [id number], 07/01/2024 11:33:22 aspirin 81 mg tablet,de layed release 2023 024 [facility]12850, [address] [place] [address], [id number], 07/09/2024 08:07:42 metoprolo l tartrate 25 mg tablet 2023 024 [facility] #03907, [address] [place] [address], [id number], 12/11/2023 12:17:59 sertralin e 25 mg tablet 2023 024 [facility] #76105, [address] [place] [address], [id number], 12/11/2023 12:17:32 Ventolin HFA 90 mcg/actua tion aerosol inhaler 2023 024 [facility] #61527, [address] [place] [address], [id number], 01/28/2024 18:04:41 cefuroxim e axetil 250 mg tablet 2023 024 [email or web address] [address] [facility], [address] [place], [address], 07/01/2024 11:35:09 cefuroxim e axetil 250 mg tablet 2023 [email or web address] Not available 07/01/2024 11:35:09 psyllium husk 0.4 gram capsule 2023 [facility] #98459, [address] [place], [place], [id number], 07/09/2024 11:47:17 trazodone 50 mg tablet 2023 [facility] #29428, [address] [place], [place], [id number], 07/09/2024 11:47:17 Patient TargetsNo targets recorded. Patient Instructions Encounter Date Encounter Id Patient Instructions Last Modified By Organization Details Last Modified Time 05/14/2024 [id number] 1. I am concerne d that her symptoms may be related to a urinary tract infection thus I have gone ahead and given her her first tablet of antibiotic tonight and the remaining doses were sent to the [facility] in [place]. She will take this medication morning and [...] over results. [email or web address] Not available 05/14/2024 20:58:45 07/09/2024 [id number] Keep the environment dark during the night [...] does not resolve. - Trial of Trazodone [email or web address] Not available 07/09/2024 10:05:30 Reason for Referral [facility] home following d/c from [facility] for Right intraparenchymal CVA Referring Physician: Maximo Lainez, Family Medicine, Encounter Date: 07/05/2024 Tie Sawyer Referral for M edical social sciences professor involved CUSTOMER ORDER CLERK requested to assist patient and caregiver in transition home following CVA. Referring Physician: Maximo Lainez Family Medicine, Encounter Date: 07/05/2024 Results Created Date Observation Date Name Description Value Unit Range Abnormal Flag Note LastModifiedBy Organization Detail LastModifiedTime 12/11/19 24 12/11/2023 HEMOG LOBIN A1C hemoglobin A1C 5.7 % <5.7 Refer ence Range s <5.7 Lara l 5.7-6 .4% Predi abete s 6.5% or great er Diagn ostic for diabe raisa (if confi rmed) Refer ences : 1. Ameri can Diabe raisa Assoc iatio n. Clas sific ation and Diagn osis of Diabe raisa. Diabe raisa Care 2018; 2(Sup pleme nt 1):S1 3-s28 . Not Available [address] [place], [address] 12/11/2023 17:10:46 12/11/19 24 12/11/2023 COMPR EHENS JR METAB OLIC PANEL calcium 9.5 mg/dL 8.5-10 .1 normal Not Available [address] [place], [address] 12/11/2023 17:36:51 12/11/19 24 12/11/2023 COMPR EHENS JR METAB OLIC PANEL glucose 131 mg/dL 74-106 high Not Available Marilin oliver [address] [facility] [place], [address] 12/11/2023 17:36:51 12/11/19 24 12/11/2023 COMPR EHENS JR METAB OLIC PANEL BUN 32 mg/dL 7-18 high Not Available Marilin oliver [address] [place], [address] 12/11/2023 17:36:51 12/11/19 24 12/11/2023 COMPR EHENS JR METAB OLIC PANEL creatinine 1.6 mg/dL 0.55-1 .02 high Not Available [address] [place], [address] 12/11/2023 17:36:51 12/11/19 24 12/11/2023 COMPR EHENS [...] young er-ag ed adult s. Not Available [address] [place], [address] 12/11/2023 17:36:51 12/11/19 24 12/11/2023 COMPR EHENS JR METAB OLIC PANEL total protein 7.3 g/dL 6.4-8. 2 normal Not Available [address] [place], [address] 12/11/2023 17:36:51 12/11/19 24 12/11/2023 COMPR EHENS JR METAB OLIC PANEL albumin 4.1 g/dL 3.4-5. 0 normal Not Available [address] [place], [address] 12/11/2023 17:36:51 12/11/19 24 12/11/2023 COMPR EHENS JR METAB OLIC PANEL bilirubin, total 0.2 mg/dL 0.2-1. 0 normal Not Available [address] [place], [address] 12/11/2023 17:36:51 12/11/19 24 12/11/2023 COMPR EHENS JR METAB OLIC PANEL alk phos 94 U/L 46-116 normal Not Available [address] [place], [address] 12/11/2023 17:36:51 12/11/19 24 12/11/2023 COMPR EHENS JR METAB OLIC PANEL sodium 145 mmol/ L 136-14 5 normal Not Available [address] [place], [address] 12/11/2023 17:36:51 12/11/19 24 12/11/2023 COMPR EHENS JR METAB OLIC PANEL potassium 3.7 mmol/ L 3.5-5. 1 normal Not Available [address] [place], [address] 12/11/2023 17:36:51 12/11/19 24 12/11/2023 COMPR EHENS JR METAB OLIC PANEL chloride 109 mmol/ L 98-107 high Not Available [address] [place], [address] 12/11/2023 17:36:51 12/11/19 24 12/11/2023 COMPR EHENS JR METAB OLIC PANEL CO2 21.6 mmol/ L 21.0-3 2.0 normal Not Available [address] [place], [address] 12/11/2023 17:36:51 12/11/19 24 12/11/2023 COMPR EHENS JR METAB OLIC PANEL anion gap 14.4 mmol/ L 3-11 high Not Available [address] [place], [address] 12/11/2023 17:36:51 12/11/19 24 12/11/2023 COMPR EHENS JR METAB OLIC PANEL AST 12 U/L 15-37 low Not Available Marilin oliver [address] [place], [address] 12/11/2023 17:36:51 12/11/19 24 12/11/2023 COMPR EHENS JR METAB OLIC PANEL ALT 15 U/L 14-59 normal Not Available Marilin oliver [address] [place], [address] 12/11/2023 17:36:51 12/11/19 24 12/11/2023 LIPID 2 cholesterol 175 mg/dL <200 Not Available Yamil marrero [address] [place], [address] 12/11/2023 17:36:51 12/11/19 24 12/11/2023 LIPID 2 triglyceride 235 mg/dL <150 high Not Available [address] [place], [address] 12/11/2023 17:36:51 12/11/19 24 12/11/2023 LIPID 2 HDL cholesterol 43 mg/dL 40-60 Not Available Kristi bondelida [address] [place], [address] 12/11/2023 17:36:51 12/11/19 24 12/11/2023 LIPID 2 [...] 18 years or older . Not Available [address] [place], [address] 12/11/2023 17:36:51 12/11/19 24 12/11/2023 MAGNE SIUM magnesium 1.9 mg/dL 1.8-2. 4 normal Not Available [address] [place], [address] 12/11/2023 17:36:52 12/11/1912/11/2023 TSH TSH 1.35 uIU/m L 0.36-3 .74 normal Not Available [address] [place], [address] 12/11/2023 17:36:52 12/11/19 24 12/11/2023 VITAM IN B12 vitamin B12 214 pg/mL 193-98 6 normal Not Available [address] [place], [address] 12/11/2023 17:36:52 12/11/19 24 12/11/2023 FOLAT E folate 7.1 NG/mL 8.6-20 .0 low Not Available [address] [place], [address] 12/11/2023 17:36:53 12/11/19 24 12/12/2023 HIV-1 /2 AG AB SCREE N HIV-1/2 Ag Ab screen Negati ve negati ve If acute HIV-1 infec tion is suspe cted in a high risk patie nt, submi t plasm a speci men for HIV-1 RNA quant itati on test. Fourt h Gener ation assay perfo rmed on the [employer] ur XPT. Test perfo rmed or refer red by [facility] [address], [place] [address] Not Available [address] [place], [address] 12/12/2023 12:53:07 12/11/19 24 12/12/2023 SYPHI LIS SEROL OGY (RPR) syphilis serology (RPR) Negati ve negati ve Test perfo rmed or refer red by [facility] [address], [place] [address] Not Available [address] [place], [address] 12/12/2023 12:53:08 01/28/20 24 01/28/2024 COMPL ETE BLOOD COUNT W/DIF F WBC 8.22 10_3/ uL 4.4-10 .8 normal Not Available [address] [place], [address] 01/28/2024 19:08:00 01/28/20 24 01/28/2024 COMPL ETE BLOOD COUNT W/DIF F RBC 4.10 10_6/ uL 3.93-5 .22 normal Not Available [address] [place], [address] 01/28/2024 19:08:00 01/28/20 24 01/28/2024 COMPL ETE BLOOD COUNT W/DIF F HGB 12.6 g/dL 11.2-1 5.7 normal Not Available [address] [place], [address] 01/28/2024 19:08:00 01/28/20 24 01/28/2024 COMPL ETE BLOOD COUNT W/DIF F HCT 36.2 % 36.0-4 6.0 normal Not Available [address] [place], [address] 01/28/2024 19:08:00 01/28/20 24 01/28/2024 COMPL ETE BLOOD COUNT W/DIF F MCV 88 fL 80-95 normal Not Available Marilin [address] [place], [address] 01/28/2024 19:08:00 01/28/20 24 01/28/2024 COMPL ETE BLOOD COUNT W/DIF F MCH 30.7 pg 27.0-3 3.0 normal Not Available [address] [place], [address] 01/28/2024 19:08:00 01/28/20 24 01/28/2024 COMPL ETE BLOOD COUNT W/DIF F MCHC 34.8 % 32.0-3 6.0 normal Not Available [address] [place], [address] 01/28/2024 19:08:00 01/28/20 24 01/28/2024 COMPL ETE BLOOD COUNT W/DIF F RDW 12.6 % 11.7-1 4.6 normal Not Available [address] [place], [address] 01/28/2024 19:08:00 01/28/20 24 01/28/2024 COMPL ETE BLOOD COUNT W/DIF F platelet count 241 10_3/ uL 130-40 0 normal Not Available [address] [place], [address] 01/28/2024 19:08:00 01/28/20 24 01/28/2024 COMPL ETE BLOOD COUNT W/DIF F MPV 11.8 fL 8.0-11 .0 high Not Available [address] [place], [address] 01/28/2024 19:08:00 01/28/20 24 01/28/2024 COMPL ETE BLOOD COUNT W/DIF F neutrophils % 54.7 % Not Available [address] [place], [address] 01/28/2024 19:08:00 01/28/20 24 01/28/2024 COMPL ETE BLOOD COUNT W/DIF F lymphocytes % 35.4 % Not Available [address] [facility] [place], [address] 01/28/2024 19:08:00 01/28/20 24 01/28/2024 COMPL ETE BLOOD COUNT W/DIF F monocytes % 6.9 % Not Available [address] [place], [address] 01/28/2024 19:08:00 01/28/20 24 01/28/2024 COMPL ETE BLOOD COUNT W/DIF F eosinophils % 2.2 % Not Available [address] [facility] [place], [address] 01/28/2024 19:08:00 01/28/20 24 01/28/2024 COMPL ETE BLOOD COUNT W/DIF F basophils % 0.6 % Not Available [address] [place], [address] 01/28/2024 19:08:00 01/28/20 24 01/28/2024 COMPL ETE BLOOD COUNT W/DIF F immature grans % 0.2 % Not Available [address] [facility] [place], [address] 01/28/2024 19:08:00 01/28/20 24 01/28/2024 COMPL ETE BLOOD COUNT W/DIF F nucleated RBC 0.0 % 0.0-0. 3 normal Not Available [address] [place], [address] 01/28/2024 19:08:00 01/28/20 24 01/28/2024 COMPL ETE BLOOD COUNT W/DIF F absolute neutrophil count 4.49 10_3/ uL 1.2-6. 7 normal Not Available [address] [place], [address] 01/28/2024 19:08:00 01/28/20 24 01/28/2024 COMPL ETE BLOOD COUNT W/DIF F absolute lymphocyte count 2.91 10_3/ uL 1.2-3. 4 normal Not Available [address] [place], [address] 01/28/2024 19:08:00 01/28/20 24 01/28/2024 COMPL ETE BLOOD COUNT W/DIF F absolute monocyte count 0.57 10_3/ uL 0.1-0. 8 normal Not Available [address] [place], [address] 01/28/2024 19:08:00 01/28/20 24 01/28/2024 COMPL ETE BLOOD COUNT W/DIF F absolute eosinophil count 0.18 10_3/ uL 0.0-0. 7 normal Not Available [address] [place], [address] 01/28/2024 19:08:00 01/28/20 24 01/28/2024 COMPL ETE BLOOD COUNT W/DIF F absolute basophil count 0.05 10_3/ uL 0.0-0. 2 normal Not Available [address] [place], [address] 01/28/2024 19:08:00 01/28/20 24 01/28/2024 COMPR EHENS JR METAB OLIC PANEL calcium 9.6 mg/dL 8.5-10 .1 normal Not Available [address] [place], [address] 01/28/2024 20:28:19 01/28/20 24 01/28/2024 COMPR EHENS JR METAB OLIC PANEL glucose 148 mg/dL 74-106 high Not Available Marilin oliver [address] [place], [address] 01/28/2024 20:28:19 01/28/20 24 01/28/2024 COMPR EHENS JR METAB OLIC PANEL BUN 25 mg/dL 7-18 high Not Available Marilin oliver [address] [place], [address] 01/28/2024 20:28:19 01/28/20 24 01/28/2024 COMPR EHENS JR METAB OLIC PANEL creatinine 1.6 mg/dL 0.55-1 .02 high Not Available [address] [place], [address] 01/28/2024 20:28:19 01/28/20 24 01/28/2024 COMPR EHENS [...] young er-ag ed adult s. Not Available [address] [place], [address] 01/28/2024 20:28:19 01/28/20 24 01/28/2024 COMPR EHENS JR METAB OLIC PANEL total protein 7.3 g/dL 6.4-8. 2 normal Not Available [address] [place], [address] 01/28/2024 20:28:19 01/28/20 24 01/28/2024 COMPR EHENS JR METAB OLIC PANEL albumin 4.1 g/dL 3.4-5. 0 normal Not Available [address] [place], [address] 01/28/2024 20:28:19 01/28/20 24 01/28/2024 COMPR EHENS JR METAB OLIC PANEL bilirubin, total 0.3 mg/dL 0.2-1. 0 normal Not Available [address] [place], [address] 01/28/2024 20:28:19 01/28/20 24 01/28/2024 COMPR EHENS JR METAB OLIC PANEL alk phos 108 U/L 46-116 normal Not Available [address] [place], [address] 01/28/2024 20:28:19 01/28/20 24 01/28/2024 COMPR EHENS JR METAB OLIC PANEL sodium 142 mmol/ L 136-14 5 normal Not Available [address] [place], [address] 01/28/2024 20:28:19 01/28/20 24 01/28/2024 COMPR EHENS JR METAB OLIC PANEL potassium 3.9 mmol/ L 3.5-5. 1 normal Not Available [address] [place], [address] 01/28/2024 20:28:19 01/28/20 24 01/28/2024 COMPR EHENS JR METAB OLIC PANEL chloride 105 mmol/ L 98-107 normal Not Available [address] [place], [address] 01/28/2024 20:28:19 01/28/20 24 01/28/2024 COMPR EHENS JR METAB OLIC PANEL CO2 21.6 mmol/ L 21.0-3 2.0 normal Not Available [address] [place], [address] 01/28/2024 20:28:19 01/28/20 24 01/28/2024 COMPR EHENS JR METAB OLIC PANEL anion gap 15.4 mmol/ L 3-11 high Not Available [address] [place], [address] 01/28/2024 20:28:19 01/28/20 24 01/28/2024 COMPR EHENS JR METAB OLIC PANEL AST 14 U/L 15-37 low Not Available Marilin oliver [address] [place], [address] 01/28/2024 20:28:19 01/28/20 24 01/28/2024 COMPR EHENS JR METAB OLIC PANEL ALT 18 U/L 14-59 normal Not Available Marilin oliver [address] [place] [place], [address] 01/28/2024 20:28:19 01/28/20 24 01/28/2024 TSH TSH 1.23 uIU/m L 0.36-3 .74 normal Not Available [address] [place], [address] 01/28/2024 20:28:20 01/28/20 24 01/28/2024 FREE T4 free T4 0.93 NG/dL 0.76-1 .46 normal Not Available [address] [place], [address] 01/28/2024 20:28:20 05/14/20 24 05/14/2024 MICRO SCOPI C FINDI NGS WBC 10-20 hpf 0-[address] [facility] (Registration ) [address] [place] [address] [place], [address], 05/14/2024 21:28:28 05/14/20 24 05/14/2024 MICRO SCOPI C FINDI NGS RBC 3-5 hpf 0-[address] [facility] (Registration ) [address] [place] [address] [place], [address], 05/14/2024 21:28:28 05/14/20 24 05/14/2024 MICRO SCOPI C FINDI NGS epithelial cells Modera te hpf negati ve Not Available [facility] (Registration ) [address] [place] [address] [place], [address], 05/14/2024 21:28:28 05/14/20 24 05/14/2024 MICRO SCOPI C FINDI NGS bacteria Modera te hpf negati ve Not Available [facility] (Registration ) [address] [place] [address] [place], [address], 05/14/2024 21:28:28 05/14/20 24 05/14/2024 MICRO SCOPI C FINDI NGS crystals Negati ve hpf negati ve Not Available [facility] (Registration ) [address] [place] [address] [place], [address], 05/14/2024 21:28:28 05/14/20 24 05/14/2024 MICRO SCOPI C FINDI NGS mucus Negati ve negati ve Not Available [facility] (Registration ) [address] [place] [address] [place], [address], 05/14/2024 21:28:28 05/14/20 24 05/14/2024 MICRO SCOPI C FINDI NGS casts Negati ve lpf negati ve Not Available [facility] (Registration ) [address] [place] [address] [place], [address], 05/14/2024 21:28:28 05/14/20 24 05/14/2024 MICRO SCOPI C FINDI NGS C S indicated? C S Done As Ordere d Not Available [facility] (Registration ) [address] [place] [address] [place], [address], 05/14/2024 21:28:28 05/14/20 24 05/16/2024 URINE CULTU RE urine culture Urine Cultu re Proba ble conta minat ed colle ction APPEA DEBBIE Mixed Gram Posit jr Haylee COLON Y COUNT Not Available [facility] (Registration ) [address] [place] [address] [place], [address], 05/16/2024 10:35:04 05/14/20 24 05/16/2024 URINE CULTU RE urine culture colon ies/m L 50,00 0 - 100,0 00 Day 1 Resul t ISOLA RAISA BELOW O:GPF M (ORGA NISM ID: 1.1) - GRAM POSIT JR HAYLEE ,MIXE D Urine Cultu re (ORGA NISM ID: 1.1) - COLON Y COUNT (ORGA NISM ID: 1.1) - 50,00 0 - 100,[address] [facility] (Registration ) [address] [place] [address] [place], [address], 05/16/2024 10:35:04 05/14/20 24 05/17/2024 URINE CULTU RE urine culture Urine Cultu re Proba ble conta minat ed colle ction APPEA DEBBIE Mixed Gram Posit jr Haylee APPEA DEBBIE Mixed Gram Posit jr Haylee COLON Y COUNT Not Available [facility] (Registration ) [address] [place] [address] , [place], [address], 05/17/2024 10:00:22 05/14/20 24 05/17/2024 URINE CULTU [...] ID: 1.1) - >100, [address] [facility] (Registration ) [address] [place] [address] , [place], [address], 05/17/2024 10:00:22 05/14/20 24 05/14/2024 urina lysis , dipst ick Leukocytes Trace Not Available [address], [place], [address], 05/14/2024 20:24:45 05/14/20 24 05/14/2024 urina lysis , dipst ick Nitrite negati ve Not Available [address], [place], [address], 05/14/2024 20:24:45 05/14/20 24 05/14/2024 urina lysis , dipst ick Urobilinogen .2 Not Available [address] [address], [place], [address], 05/14/2024 20:24:45 05/14/20 24 05/14/2024 urina lysis , dipst ick Protein 100 Not Available David [address] [address], [place], [address], 05/14/2024 20:24:45 05/14/20 24 05/14/2024 urina lysis , dipst ick pH 5.0 Not Available [address], [place], [address], 05/14/2024 20:24:45 05/14/20 24 05/14/2024 urina lysis , dipst ick Blood Negati ve Not Available [address], [place], [address], 05/14/2024 20:24:45 05/14/20 24 05/14/2024 urina lysis , dipst ick Specific Heth 1.015 Not Available Yamil [address], [place], [address], 05/14/2024 20:24:45 05/14/20 24 05/14/2024 urina lysis , dipst ick Ketone Trace Not Available [address], [place], [address], 05/14/2024 20:24:45 05/14/20 24 05/14/2024 urina lysis , dipst ick Bilirubin Small Not Available [address], [place], [address], 05/14/2024 20:24:45 05/14/20 24 05/14/2024 urina lysis , dipst ick Glucose Negati ve Not Available [address], [place], [address], 05/14/2024 20:24:45 05/14/20 24 05/14/2024 urina lysis , dipst ick Appearance Clear Not Available Harrison pina [address], [place], [address], 05/14/2024 20:24:45 05/14/20 24 05/14/2024 urina lysis , dipst ick Color Dark Yellow Not Available [address], [place], [address], 05/14/2024 20:24:45 06/12/20 24 06/12/2024 URINE DRUG SCREE N ([facility] ) methadone Negati ve negati ve Not Available [address] [place], [address] 06/12/2024 20:21:43 06/12/20 24 06/12/2024 URINE DRUG SCREE N ([facility] ) benzodiazepi sharad Negati ve negati ve Benzo diaze pines are exten sivel y metab olize d and the paren t compo und may not be detec liz in urine . If clini shea suspi cion is high, pleas e notif y Lab for send- out testi ng. Not Available [address] [place], [address] 06/12/2024 20:21:43 06/12/20 24 06/12/2024 URINE DRUG SCREE N ([facility] ) cocaine Negati ve negati ve Not Available [address] [place], [address] 06/12/2024 20:21:43 06/12/20 24 06/12/2024 URINE DRUG SCREE N ([facility] ) amphetamines Negati ve negati ve Not Available [address] [place], [address] 06/12/2024 20:21:43 06/12/20 24 06/12/2024 URINE DRUG SCREE N ([facility] ) tetrahydroca nnabinol Negati ve negati ve Not Available [address] [place], [address] 06/12/2024 20:21:43 06/12/20 24 06/12/2024 URINE DRUG SCREE N ([facility] ) opiates Negati ve negati ve Not Available [address] [place], [address] 06/12/2024 20:21:43 06/12/20 24 06/12/2024 URINE DRUG SCREE N ([facility] ) barbiturates Negati ve negati ve Not Available [address] [place], [address] 06/12/2024 20:21:43 06/12/20 24 06/12/2024 URINE DRUG [...] tion of these resul ts. Not Available [address] [place], [address] 06/12/2024 20:21:43 06/12/20 24 06/12/2024 MICRO SCOPI C FINDI NGS WBC Negati ve hpf 0-5 Not Available [address] [place], [address] 06/12/2024 20:10:41 06/12/20 24 06/12/2024 MICRO SCOPI C FINDI NGS RBC Negati ve hpf 0-2 Not Available [address] [place], [address] 06/12/2024 20:10:41 06/12/20 24 06/12/2024 MICRO SCOPI C FINDI NGS epithelial cells Rare hpf negati ve Not Available [address] [place], [address] 06/12/2024 20:10:41 06/12/20 24 06/12/2024 MICRO SCOPI C FINDI NGS bacteria Rare hpf negati ve Not Available [address] [place], [address] 06/12/2024 20:10:41 06/12/20 24 06/12/2024 MICRO SCOPI C FINDI NGS crystals Negati ve hpf negati ve Not Available [address] [place], [address] 06/12/2024 20:10:41 06/12/20 24 06/12/2024 MICRO SCOPI C FINDI NGS mucus Negati ve negati ve Not Available [address] [place], [address] 06/12/2024 20:10:41 06/12/20 24 06/12/2024 MICRO SCOPI C FINDI NGS casts Negati ve lpf negati ve Not Available [address] [place], [address] 06/12/2024 20:10:41 06/12/20 24 06/12/2024 MICRO SCOPI C FINDI NGS C S indicated? No Not Available [address] [place], [address] 06/12/2024 20:10:41 06/12/20 24 06/12/2024 URINA LYSIS color Yellow yellow Not Available Marilin oliver [address] [place] [place], [address] 06/12/2024 20:10:40 06/12/20 24 06/12/2024 URINA LYSIS clarity Clear clear Not Available Marilin oliver [address] [place] [place], [address] 06/12/2024 20:10:40 06/12/20 24 06/12/2024 URINA LYSIS specific gravity 1.025 1.005- 1.025 normal Not Available [address] [place], [address] 06/12/2024 20:10:40 06/12/20 24 06/12/2024 URINA LYSIS pH 5.5 5-8 normal Not Available [address] [place], [address] 06/12/2024 20:10:40 06/12/20 24 06/12/2024 URINA LYSIS leukocyte esterase Negati ve negati ve Not Available [address] [place], [address] 06/12/2024 20:10:40 06/12/20 24 06/12/2024 URINA LYSIS nitrite Negati ve negati ve Not Available [address] [place], [address] 06/12/2024 20:10:40 06/12/20 24 06/12/2024 URINA LYSIS protein 30 mg/dL neg-tr erendira abnormal Not Available [address] [place], [address] 06/12/2024 20:10:40 06/12/20 24 06/12/2024 URINA LYSIS glucose Negati ve mg/dL negati ve Not Available [address] [place], [address] 06/12/2024 20:10:40 06/12/20 24 06/12/2024 URINA LYSIS ketones Negati ve mg/dL negati ve Not Available [address] [place], [address] 06/12/2024 20:10:40 06/12/20 24 06/12/2024 URINA LYSIS urobilinogen 0.2 mg/dL up to 0.2 Not Available [address] [place], [address] 06/12/2024 20:10:40 06/12/20 24 06/12/2024 URINA LYSIS bilirubin Negati ve negati ve Not Available [address] [place], [address] 06/12/2024 20:10:40 06/12/20 24 06/12/2024 URINA LYSIS blood Negati ve negati ve Not Available [address] [place], [address] 06/12/2024 20:10:40 06/12/20 24 06/12/2024 URINA LYSIS color Yellow yellow Not Available Marilin oliver [address] [place], [address] 06/12/2024 20:04:40 06/12/20 24 06/12/2024 URINA LYSIS clarity Clear clear Not Available Marilin oliver [address] [place], [address] 06/12/2024 20:04:40 06/12/20 24 06/12/2024 URINA LYSIS specific gravity 1.025 1.005- 1.025 normal Not Available [address] [place], [address] 06/12/2024 20:04:40 06/12/20 24 06/12/2024 URINA LYSIS pH 5.5 5-8 normal Not Available Marilin oliver [address] [place], [address] 06/12/2024 20:04:40 06/12/20 24 06/12/2024 URINA LYSIS leukocyte esterase Negati ve negati ve Not Available [address] [place], [address] 06/12/2024 20:04:40 06/12/20 24 06/12/2024 URINA LYSIS nitrite Negati ve negati ve Not Available [address] [place], [address] 06/12/2024 20:04:40 06/12/20 24 06/12/2024 URINA LYSIS protein 30 mg/dL neg-tr erendira abnormal Not Available [address] [place], [address] 06/12/2024 20:04:40 06/12/20 24 06/12/2024 URINA LYSIS glucose Negati ve mg/dL negati ve Not Available [address] [place], [address] 06/12/2024 20:04:40 06/12/20 24 06/12/2024 URINA LYSIS ketones Negati ve mg/dL negati ve Not Available [address] [place], [address] 06/12/2024 20:04:40 06/12/20 24 06/12/2024 URINA LYSIS urobilinogen 0.2 mg/dL up to 0.2 Not Available [address] [place], [address] 06/12/2024 20:04:40 06/12/20 24 06/12/2024 URINA LYSIS bilirubin Negati ve negati ve Not Available [address] [place], [address] 06/12/2024 20:04:40 06/12/20 24 06/12/2024 URINA LYSIS blood Negati ve negati ve Not Available [address] [place], [address] 06/12/2024 20:04:40 06/12/20 24 06/12/2024 ACETA MINOP HEN acetaminophe n < 2 ug/mL 10-30 Not Available Yamil marrero [address] [place] [place], [address] 06/12/2024 18:20:32 06/12/20 24 06/12/2024 LIPAS E lipase 71 U/L 16-77 normal Not Available Marilin oliver [address] [place] [place], [address] 06/12/2024 18:55:40 06/12/20 24 06/12/2024 TSH (W/RE F FT4) TSH (w/ref FT4) 1.49 uIU/m L 0.36-3 .74 normal Not Available [address] [place], [address] 06/12/2024 18:55:40 06/12/20 24 06/12/2024 MAGNE SIUM magnesium 2.0 mg/dL 1.8-2. 4 normal Not Available [address] [place], [address] 06/12/2024 18:55:39 06/12/20 24 06/12/2024 ETHYL ALCOH OL ethyl alcohol < 3.0 mg/dL <10 ETOH Refer ence Range = <10 mg/dL Legal Limit of Intox icati on is 80 mg/dL This test is inten ded only for Medic al purpo ses. Divid e resul t by 1000 to conve rt to %(w/v ) Not Available [address] [place], [address] 06/12/2024 18:55:39 06/12/20 24 06/12/2024 CREAT INE KINAS E creatine kinase 81 U/L 26-192 normal Not Available Ymail marrero [address] [place] [place], [address] 06/12/2024 18:55:38 06/12/20 24 06/12/2024 COMPR EHENS JR METAB OLIC PANEL calcium 9.5 mg/dL 8.5-10 .1 normal Not Available [address] [place], [address] 06/12/2024 18:55:38 06/12/20 24 06/12/2024 COMPR EHENS JR METAB OLIC PANEL glucose 162 mg/dL 74-106 high Not Available Marilin oliver [address] [place] [place], [address] 06/12/2024 18:55:38 06/12/20 24 06/12/2024 COMPR EHENS JR METAB OLIC PANEL BUN 37 mg/dL 7-18 high Not Available [facility]ianguyen oliver [address] [place] [place], [address] 06/12/2024 18:55:38 06/12/20 24 06/12/2024 COMPR EHENS JR METAB OLIC PANEL creatinine 1.7 mg/dL 0.55-1 .02 high Not Available [address] [place], [address] 06/12/2024 18:55:38 06/12/20 24 06/12/2024 COMPR EHENS [...] young er-ag ed adult s. Not Available [address] [place], [address] 06/12/2024 18:55:38 06/12/20 24 06/12/2024 COMPR EHENS JR METAB OLIC PANEL total protein 7.4 g/dL 6.4-8. 2 normal Not Available [address] [place], [address] 06/12/2024 18:55:38 06/12/20 24 06/12/2024 COMPR EHENS JR METAB OLIC PANEL albumin 3.9 g/dL 3.4-5. 0 normal Not Available [address] [place], [address] 06/12/2024 18:55:38 06/12/20 24 06/12/2024 COMPR EHENS JR METAB OLIC PANEL bilirubin, total 0.52 mg/dL 0.2-1. 0 normal Not Available [address] [place], [address] 06/12/2024 18:55:38 06/12/20 24 06/12/2024 COMPR EHENS JR METAB OLIC PANEL alk phos 101 U/L 46-116 normal Not Available [address] [place], [address] 06/12/2024 18:55:38 06/12/20 24 06/12/2024 COMPR EHENS JR METAB OLIC PANEL sodium 144 mmol/ L 136-14 5 normal Not Available [address] [place], [address] 06/12/2024 18:55:38 06/12/20 24 06/12/2024 COMPR EHENS JR METAB OLIC PANEL potassium 3.6 mmol/ L 3.5-5. 1 normal Not Available [address] [place], [address] 06/12/2024 18:55:38 06/12/20 24 06/12/2024 COMPR EHENS JR METAB OLIC PANEL chloride 108 mmol/ L 98-107 high Not Available [address] [place], [address] 06/12/2024 18:55:38 06/12/20 24 06/12/2024 COMPR EHENS JR METAB OLIC PANEL CO2 23.8 mmol/ L 21.0-3 2.0 normal Not Available [address] [place], [address] 06/12/2024 18:55:38 06/12/20 24 06/12/2024 COMPR EHENS JR METAB OLIC PANEL anion gap 12.2 mmol/ L 3-11 high Not Available [address] [place], [address] 06/12/2024 18:55:38 06/12/20 24 06/12/2024 COMPR EHENS JR METAB OLIC PANEL AST 15 U/L 15-37 normal Not Available Marilin oliver [address] [place], [address] 06/12/2024 18:55:38 06/12/20 24 06/12/2024 COMPR EHENS JR METAB OLIC PANEL ALT 15 U/L 14-59 normal Not Available Marilin oliver [address] [place] [place], [address] 06/12/2024 18:55:38 06/12/20 24 06/12/2024 COVID /FLU/ RSV PCR source Nasoph arynx Not Available [address] [place], [address] 06/12/2024 18:35:33 06/12/20 24 06/12/2024 COVID /FLU/ [...] from the 2019 novel coron a virus (2019 -nCoV ), influ umberto A, influ umberto B, [...] detec tion and/o r diagn osis of 2018- nCoV under secti on 564(b )(1) of Act, [...] histo ry, and epide miolo gical infor matio n. Testi ng perfo [facility]med at [facility] (CLIA #[id number]) on the [employer] id [id number]. Not Available [address] [place], [address] 06/12/2024 18:35:33 06/12/20 24 06/12/2024 COVID /FLU/ RSV PCR influenza A PCR Negati ve negati ve Not Available [address] [place], [address] 06/12/2024 18:35:33 06/12/20 24 06/12/2024 COVID /FLU/ RSV PCR influenza B PCR Negati ve negati ve Not Available [address] [place], [address] 06/12/2024 18:35:33 06/12/20 24 06/12/2024 COVID /FLU/ RSV PCR RSV PCR Negati ve negati ve Not Available [address] [place], [address] 06/12/2024 18:35:33 06/12/20 24 06/12/2024 PTT ACTIV ATED PTT activated 22.1 sec 23.6-3 2.8 low Hepar in Thera peuti c Range for PTT = 52-84 secon ds New Hepar in Thera peuti c Range 10/28 Not Available [address] [place], [address] 06/12/2024 18:13:30 06/12/20 24 06/12/2024 PROTH ROMBI N TIME prothrombin time 9.9 sec 9.1-11 .1 normal Not Available [address] [place], [address] 06/12/2024 18:13:30 06/12/20 24 06/12/2024 PROTH ROMBI N TIME INR 1.0 0.9-1. 1 normal Recom luis a d INR thera peuti c range s for orall y admin ister ed drugs are as follo ws: -Dustin dard Inten sity 2.0 to 3.0 -High er Inten sity 3.0 to 4.5 Not Available [address] [place], [address] 06/12/2024 18:13:30 06/12/20 24 06/12/2024 VALENCIA IA ammonia < 10 umol/ L 11-32 low Not Available [address] [place], [address] 06/12/2024 18:10:29 06/12/20 24 06/12/2024 COMPL ETE BLOOD COUNT W/DIF F WBC 7.41 10_3/ uL 4.4-10 .8 normal Not Available [address] [place], [address] 06/12/2024 18:08:30 06/12/20 24 06/12/2024 COMPL ETE BLOOD COUNT W/DIF F RBC 3.82 10_6/ uL 3.93-5 .22 low Not Available [address] [place], [address] 06/12/2024 18:08:30 06/12/20 24 06/12/2024 COMPL ETE BLOOD COUNT W/DIF F HGB 11.9 g/dL 11.2-1 5.7 normal Not Available [address] [place], [address] 06/12/2024 18:08:30 06/12/20 24 06/12/2024 COMPL ETE BLOOD COUNT W/DIF F HCT 34.8 % 36.0-4 6.0 low Not Available [address] [place], [address] 06/12/2024 18:08:30 06/12/20 24 06/12/2024 COMPL ETE BLOOD COUNT W/DIF F MCV 91 fL 80-95 normal Not Available [address] [place], [address] 06/12/2024 18:08:30 06/12/20 24 06/12/2024 COMPL ETE BLOOD COUNT W/DIF F MCH 31.2 pg 27.0-3 3.0 normal Not Available [address] [place], [address] 06/12/2024 18:08:30 06/12/20 24 06/12/2024 COMPL ETE BLOOD COUNT W/DIF F MCHC 34.2 % 32.0-3 6.0 normal Not Available [address] [place], [address] 06/12/2024 18:08:30 06/12/20 24 06/12/2024 COMPL ETE BLOOD COUNT W/DIF F RDW 12.2 % 11.7-1 4.6 normal Not Available [address] [place], [address] 06/12/2024 18:08:30 06/12/20 24 06/12/2024 COMPL ETE BLOOD COUNT W/DIF F platelet count 211 10_3/ uL 130-40 0 normal Not Available [address] [place], [address] 06/12/2024 18:08:30 06/12/20 24 06/12/2024 COMPL ETE BLOOD COUNT W/DIF F MPV 10.8 fL 8.0-11 .0 normal Not Available [address] [place], [address] 06/12/2024 18:08:30 06/12/20 24 06/12/2024 COMPL ETE BLOOD COUNT W/DIF F neutrophils % 58.3 % Not Available [address] [place], [address] 06/12/2024 18:08:30 06/12/20 24 06/12/2024 COMPL ETE BLOOD COUNT W/DIF F lymphocytes % 33.3 % Not Available [address] [place], [address] 06/12/2024 18:08:30 06/12/20 24 06/12/2024 COMPL ETE BLOOD COUNT W/DIF F monocytes % 5.0 % Not Available [address] [place], [address] 06/12/2024 18:08:30 06/12/20 24 06/12/2024 COMPL ETE BLOOD COUNT W/DIF F eosinophils % 2.3 % Not Available [address] [place], [address] 06/12/2024 18:08:30 06/12/20 24 06/12/2024 COMPL ETE BLOOD COUNT W/DIF F basophils % 0.8 % Not Available [address] [place], [address] 06/12/2024 18:08:30 06/12/20 24 06/12/2024 COMPL ETE BLOOD COUNT W/DIF F immature grans % 0.3 % Not Available [address] [place], [address] 06/12/2024 18:08:30 06/12/20 24 06/12/2024 COMPL ETE BLOOD COUNT W/DIF F nucleated RBC 0.0 % 0.0-0. 3 normal Not Available [address] [place], [address] 06/12/2024 18:08:30 06/12/20 24 06/12/2024 COMPL ETE BLOOD COUNT W/DIF F absolute neutrophil count 4.32 10_3/ uL 1.2-6. 7 normal Not Available [address] [place], [address] 06/12/2024 18:08:30 06/12/20 24 06/12/2024 COMPL ETE BLOOD COUNT W/DIF F absolute lymphocyte count 2.47 10_3/ uL 1.2-3. 4 normal Not Available [address] [place], [address] 06/12/2024 18:08:30 06/12/20 24 06/12/2024 COMPL ETE BLOOD COUNT W/DIF F absolute monocyte count 0.37 10_3/ uL 0.1-0. 8 normal Not Available [address] [place], [address] 06/12/2024 18:08:30 06/12/20 24 06/12/2024 COMPL ETE BLOOD COUNT W/DIF F absolute eosinophil count 0.17 10_3/ uL 0.0-0. 7 normal Not Available [address] [place], [address] 06/12/2024 18:08:30 06/12/20 24 06/12/2024 COMPL ETE BLOOD COUNT W/DIF F absolute basophil count 0.06 10_3/ uL 0.0-0. 2 normal Not Available [address] [place], [address] 06/12/2024 18:08:30 06/12/20 24 06/12/2024 VENOU S BLOOD GAS pH (venous) 7.30 7.31-7 .41 low Not Available [address] [place], [address] 06/12/2024 17:56:28 06/12/20 24 06/12/2024 VENOU S BLOOD GAS pCO2 (venous) 45 mmHg 41-51 normal Not Available [address] [place], [address] 06/12/2024 17:56:28 06/12/20 24 06/12/2024 VENOU S BLOOD GAS pO2 (venous) 31 mmHg Not Available [address] [place], [address] 06/12/2024 17:56:28 06/12/20 24 06/12/2024 VENOU S BLOOD GAS TCO2 (venous) 21 mmol/ L 24-29 low Not Available [address] [place], [address] 06/12/2024 17:56:28 06/12/20 24 06/12/2024 VENOU S BLOOD GAS HCO3 (venous) 22 mmol/ L 23-28 low Not Available [address] [place], [address] 06/12/2024 17:56:28 06/12/20 24 06/12/2024 VENOU S BLOOD GAS BE (venous) -4 mmol/ L -2-3 low Not Available [address] [place], [address] 06/12/2024 17:56:28 06/12/20 24 06/12/2024 VENOU S BLOOD GAS O2 sat (venous) 57 % Not Available Yamil marrero [address] [place], [address] 06/12/2024 17:56:28 06/12/20 24 06/12/2024 TSH (W/RE F FT4) TSH (w/ref FT4) 1.49 uIU/m L 0.36-3 .74 normal Not Available [address] [place], [address] 06/12/2024 18:45:41 06/12/20 24 06/12/2024 MAGNE SIUM magnesium 2.0 mg/dL 1.8-2. 4 normal Not Available [address] [place], [address] 06/12/2024 18:45:41 06/12/20 24 06/12/2024 ETHYL ALCOH OL ethyl alcohol < 3.0 mg/dL <10 ETOH Refer ence Range = <10 mg/dL Legal Limit of Intox icati on is 80 mg/dL This test is inten ded only for Medic al purpo ses. Divid e resul t by 1000 to conve rt to %(w/v ) Not Available [address] [place], [address] 06/12/2024 18:45:40 06/12/20 24 06/12/2024 CREAT INE KINAS E creatine kinase 81 U/L 26-192 normal Not Available Yamil marrero [address] [place] [place], [address] 06/12/2024 18:45:40 06/12/20 24 06/12/2024 COMPR EHENS JR METAB OLIC PANEL calcium 9.5 mg/dL 8.5-10 .1 normal Not Available [address] [place], [address] 06/12/2024 18:45:39 06/12/20 24 06/12/2024 COMPR EHENS JR METAB OLIC PANEL glucose 162 mg/dL 74-106 high Not Available Marilin oliver [address] [place] [place], [address] 06/12/2024 18:45:39 06/12/20 24 06/12/2024 COMPR EHENS JR METAB OLIC PANEL BUN 37 mg/dL 7-18 high Not Available Marilin oliver [address] [place] [place], [address] 06/12/2024 18:45:39 06/12/20 24 06/12/2024 COMPR EHENS JR METAB OLIC PANEL creatinine 1.7 mg/dL 0.55-1 .02 high Not Available [address] [place], [address] 06/12/2024 18:45:39 06/12/20 24 06/12/2024 COMPR EHENS [...] young er-ag ed adult s. Not Available [address] [place], [address] 06/12/2024 18:45:39 06/12/20 24 06/12/2024 COMPR EHENS JR METAB OLIC PANEL total protein 7.4 g/dL 6.4-8. 2 normal Not Available [address] [place], [address] 06/12/2024 18:45:39 06/12/20 24 06/12/2024 COMPR EHENS JR METAB OLIC PANEL albumin 3.9 g/dL 3.4-5. 0 normal Not Available [address] [place], [address] 06/12/2024 18:45:39 06/12/20 24 06/12/2024 COMPR EHENS JR METAB OLIC PANEL bilirubin, total 0.52 mg/dL 0.2-1. 0 normal Not Available [address] [place], [address] 06/12/2024 18:45:39 06/12/20 24 06/12/2024 COMPR EHENS JR METAB OLIC PANEL alk phos 101 U/L 46-116 normal Not Available [address] [place], [address] 06/12/2024 18:45:39 06/12/20 24 06/12/2024 COMPR EHENS JR METAB OLIC PANEL sodium 144 mmol/ L 136-14 5 normal Not Available [address] [place], [address] 06/12/2024 18:45:39 06/12/20 24 06/12/2024 COMPR EHENS JR METAB OLIC PANEL potassium 3.6 mmol/ L 3.5-5. 1 normal Not Available [address] [place], [address] 06/12/2024 18:45:39 06/12/20 24 06/12/2024 COMPR EHENS JR METAB OLIC PANEL chloride 108 mmol/ L 98-107 high Not Available [address] [place], [address] 06/12/2024 18:45:39 06/12/20 24 06/12/2024 COMPR EHENS JR METAB OLIC PANEL CO2 23.8 mmol/ L 21.0-3 2.0 normal Not Available [address] [place], [address] 06/12/2024 18:45:39 06/12/20 24 06/12/2024 COMPR EHENS JR METAB OLIC PANEL anion gap 12.2 mmol/ L 3-11 high Not Available [address] [place], [address] 06/12/2024 18:45:39 06/12/20 24 06/12/2024 COMPR EHENS JR METAB OLIC PANEL AST 15 U/L 15-37 normal Not Available Marilin oliver [address] [place], [address] 06/12/2024 18:45:39 06/12/20 24 06/12/2024 COMPR EHENS JR METAB OLIC PANEL ALT 15 U/L 14-59 normal Not Available Marilin oliver [address] [place], [address] 06/12/2024 18:45:39 06/12/20 24 06/12/2024 TSH (W/RE F FT4) TSH (w/ref FT4) 1.49 uIU/m L 0.36-3 .74 normal Not Available [address] [place], [address] 06/12/2024 18:45:36 06/12/20 24 06/12/2024 MAGNE SIUM magnesium 2.0 mg/dL 1.8-2. 4 normal Not Available [address] [place], [address] 06/12/2024 18:45:36 06/12/20 24 06/12/2024 ETHYL ALCOH OL ethyl alcohol < 3.0 mg/dL <10 ETOH Refer ence Range = <10 mg/dL Legal Limit of Intox icati on is 80 mg/dL This test is inten ded only for Medic al purpo ses. Divid e resul t by 1000 to conve rt to %(w/v ) Not Available [address] [place], [address] 06/12/2024 18:45:35 06/12/20 24 06/12/2024 CREAT INE KINAS E creatine kinase 81 U/L 26-192 normal Not Available aYmil marrero [address] [place], [address] 06/12/2024 18:45:35 06/12/20 24 06/12/2024 COMPR EHENS JR METAB OLIC PANEL calcium 9.5 mg/dL 8.5-10 .1 normal Not Available [address] [place], [address] 06/12/2024 18:45:34 06/12/20 24 06/12/2024 COMPR EHENS JR METAB OLIC PANEL glucose 162 mg/dL 74-106 high Not Available Marilin oliver [address] [place], [address] 06/12/2024 18:45:34 06/12/20 24 06/12/2024 COMPR EHENS JR METAB OLIC PANEL BUN 37 mg/dL 7-18 high Not Available Marilin oliver [address] [place], [address] 06/12/2024 18:45:34 06/12/20 24 06/12/2024 COMPR EHENS JR METAB OLIC PANEL creatinine 1.7 mg/dL 0.55-1 .02 high Not Available [address] [place], [address] 06/12/2024 18:45:34 06/12/20 24 06/12/2024 COMPR EHENS [...] young er-ag ed adult s. Not Available [address] [place], [address] 06/12/2024 18:45:34 06/12/20 24 06/12/2024 COMPR EHENS JR METAB OLIC PANEL total protein 7.4 g/dL 6.4-8. 2 normal Not Available [address] [place], [address] 06/12/2024 18:45:34 06/12/20 24 06/12/2024 COMPR EHENS JR METAB OLIC PANEL albumin 3.9 g/dL 3.4-5. 0 normal Not Available [address] [place], [address] 06/12/2024 18:45:34 06/12/20 24 06/12/2024 COMPR EHENS JR METAB OLIC PANEL bilirubin, total 0.52 mg/dL 0.2-1. 0 normal Not Available [address] [place], [address] 06/12/2024 18:45:34 06/12/20 24 06/12/2024 COMPR EHENS JR METAB OLIC PANEL alk phos 101 U/L 46-116 normal Not Available [address] [place], [address] 06/12/2024 18:45:34 06/12/20 24 06/12/2024 COMPR EHENS JR METAB OLIC PANEL sodium 144 mmol/ L 136-14 5 normal Not Available [address] [place], [address] 06/12/2024 18:45:34 06/12/20 24 06/12/2024 COMPR EHENS JR METAB OLIC PANEL potassium 3.6 mmol/ L 3.5-5. 1 normal Not Available [address] [place], [address] 06/12/2024 18:45:34 06/12/20 24 06/12/2024 COMPR EHENS JR METAB OLIC PANEL chloride 108 mmol/ L 98-107 high Not Available [address] [place], [address] 06/12/2024 18:45:34 06/12/20 24 06/12/2024 COMPR EHENS JR METAB OLIC PANEL CO2 23.8 mmol/ L 21.0-3 2.0 normal Not Available [address] [place], [address] 06/12/2024 18:45:34 06/12/20 24 06/12/2024 COMPR EHENS JR METAB OLIC PANEL anion gap 12.2 mmol/ L 3-11 high Not Available [address] [place], [address] 06/12/2024 18:45:34 06/12/20 24 06/12/2024 COMPR EHENS JR METAB OLIC PANEL AST 15 U/L 15-37 normal Not Available [address] [place], [address] 06/12/2024 18:45:34 06/12/20 24 06/12/2024 COMPR EHENS JR METAB OLIC PANEL ALT 15 U/L 14-59 normal Not Available [address] [place], [address] 06/12/2024 18:45:34 06/12/20 24 06/12/2024 CREAT INE KINAS E creatine kinase 81 U/L 26-192 normal Not Available [address] [place], [address] 06/12/2024 18:21:32 06/12/20 24 06/12/2024 COMPR EHENS JR METAB OLIC PANEL total protein 7.4 g/dL 6.4-8. 2 normal Not Available [address] [place], [address] 06/12/2024 18:21:31 06/12/20 24 06/12/2024 COMPR EHENS JR METAB OLIC PANEL bilirubin, total 0.52 mg/dL 0.2-1. 0 normal Not Available [address] [place], [address] 06/12/2024 18:21:31 06/12/20 24 06/12/2024 COMPR EHENS JR METAB OLIC PANEL sodium 144 mmol/ L 136-14 5 normal Not Available [address] [place], [address] 06/12/2024 18:21:31 06/12/20 24 06/12/2024 COMPR EHENS JR METAB OLIC PANEL potassium 3.6 mmol/ L 3.5-5. 1 normal Not Available [address] [place], [address] 06/12/2024 18:21:31 06/12/20 24 06/12/2024 COMPR EHENS JR METAB OLIC PANEL chloride 108 mmol/ L 98-107 high Not Available [address] [place], [address] 06/12/2024 18:21:31 06/12/20 24 06/12/2024 COMPR EHENS JR METAB OLIC PANEL CO2 23.8 mmol/ L 21.0-3 2.0 normal Not Available [address] [place], [address] 06/12/2024 18:21:31 06/12/20 24 06/12/2024 COMPR EHENS JR METAB OLIC PANEL anion gap 12.2 mmol/ L 3-11 high Not Available [address] [place], [address] 06/12/2024 18:21:31 06/13/20 24 06/13/2024 MAGNE SIUM magnesium 1.8 mg/dL 1.8-2. 4 normal Not Available [address] [place], [address] 06/13/2024 07:03:39 06/13/20 24 06/13/2024 COMPR EHENS JR METAB OLIC PANEL calcium 9.0 mg/dL 8.5-10 .1 normal Not Available [address] [place], [address] 06/13/2024 07:03:38 06/13/20 24 06/13/2024 COMPR EHENS JR METAB OLIC PANEL glucose 104 mg/dL 74-106 normal Not Available Marilin oliver [address] [place], [address] 06/13/2024 07:03:38 06/13/20 24 06/13/2024 COMPR EHENS JR METAB OLIC PANEL BUN 34 mg/dL 7-18 high Not Available Marilin oliver [address] [place], [address] 06/13/2024 07:03:38 06/13/20 24 06/13/2024 COMPR EHENS JR METAB OLIC PANEL creatinine 1.6 mg/dL 0.55-1 .02 high Not Available [address] [place], [address] 06/13/2024 07:03:38 06/13/20 24 06/13/2024 COMPR EHENS [...] young er-ag ed adult s. Not Available [address] [place], [address] 06/13/2024 07:03:38 06/13/20 24 06/13/2024 COMPR EHENS JR METAB OLIC PANEL total protein 6.7 g/dL 6.4-8. 2 normal Not Available [address] [place], [address] 06/13/2024 07:03:38 06/13/20 24 06/13/2024 COMPR EHENS JR METAB OLIC PANEL albumin 3.5 g/dL 3.4-5. 0 normal Not Available [address] [place], [address] 06/13/2024 07:03:38 06/13/20 24 06/13/2024 COMPR EHENS JR METAB OLIC PANEL bilirubin, total 0.40 mg/dL 0.2-1. 0 normal Not Available [address] [place], [address] 06/13/2024 07:03:38 06/13/20 24 06/13/2024 COMPR EHENS JR METAB OLIC PANEL alk phos 91 U/L 46-116 normal Not Available [address] [place], [address] 06/13/2024 07:03:38 06/13/20 24 06/13/2024 COMPR EHENS JR METAB OLIC PANEL sodium 138 mmol/ L 136-14 5 normal Not Available [address] [place], [address] 06/13/2024 07:03:38 06/13/20 24 06/13/2024 COMPR EHENS JR METAB OLIC PANEL potassium 3.4 mmol/ L 3.5-5. 1 low Not Available [address] [place], [address] 06/13/2024 07:03:38 06/13/20 24 06/13/2024 COMPR EHENS JR METAB OLIC PANEL chloride 106 mmol/ L 98-107 normal Not Available [address] [place], [address] 06/13/2024 07:03:38 06/13/20 24 06/13/2024 COMPR EHENS JR METAB OLIC PANEL CO2 22.6 mmol/ L 21.0-3 2.0 normal Not Available [address] [place], [address] 06/13/2024 07:03:38 06/13/20 24 06/13/2024 COMPR EHENS JR METAB OLIC PANEL anion gap 9.4 mmol/ L 3-11 normal Not Available [address] [place], [address] 06/13/2024 07:03:38 06/13/20 24 06/13/2024 COMPR EHENS JR METAB OLIC PANEL AST 14 U/L 15-37 low Not Available Mrailin oliver [address] [place], [address] 06/13/2024 07:03:38 06/13/20 24 06/13/2024 COMPR EHENS JR METAB OLIC PANEL ALT 12 U/L 14-59 low Not Available Marilin oliver [address] [place], [address] 06/13/2024 07:03:38 06/13/20 24 06/13/2024 COMPL ETE BLOOD COUNT NO DIFF WBC 8.48 10_3/ uL 4.4-10 .8 normal Not Available [address] [place], [address] 06/13/2024 06:47:37 06/13/20 24 06/13/2024 COMPL ETE BLOOD COUNT NO DIFF RBC 3.48 10_6/ uL 3.93-5 .22 low Not Available [address] [place], [address] 06/13/2024 06:47:37 06/13/20 24 06/13/2024 COMPL ETE BLOOD COUNT NO DIFF HGB 10.8 g/dL 11.2-1 5.7 low Not Available [address] [place], [address] 06/13/2024 06:47:37 06/13/20 24 06/13/2024 COMPL ETE BLOOD COUNT NO DIFF HCT 31.5 % 36.0-4 6.0 low Not Available [address] [place], [address] 06/13/2024 06:47:37 06/13/20 24 06/13/2024 COMPL ETE BLOOD COUNT NO DIFF MCV 91 fL 80-95 normal Not Available [address] [place], [address] 06/13/2024 06:47:37 06/13/20 24 06/13/2024 COMPL ETE BLOOD COUNT NO DIFF MCH 31.0 pg 27.0-3 3.0 normal Not Available [address] [place], [address] 06/13/2024 06:47:37 06/13/20 24 06/13/2024 COMPL ETE BLOOD COUNT NO DIFF MCHC 34.3 % 32.0-3 6.0 normal Not Available [address] [place], [address] 06/13/2024 06:47:37 06/13/20 24 06/13/2024 COMPL ETE BLOOD COUNT NO DIFF RDW 12.1 % 11.7-1 4.6 normal Not Available [address] [place], [address] 06/13/2024 06:47:37 06/13/20 24 06/13/2024 COMPL ETE BLOOD COUNT NO DIFF platelet count 200 10_3/ uL 130-40 0 normal Not Available [address] [place], [address] 06/13/2024 06:47:37 06/13/20 24 06/13/2024 COMPL ETE BLOOD COUNT NO DIFF MPV 10.5 fL 8.0-11 .0 normal Not Available [address] [place], [address] 06/13/2024 06:47:37 06/16/20 24 06/16/2024 COMPL ETE BLOOD COUNT W/DIF F WBC 10.78 10_3/ uL 4.4-10 .8 normal Not Available [address] [place], [address] 06/16/2024 15:02:01 06/16/20 24 06/16/2024 COMPL ETE BLOOD COUNT W/DIF F RBC 3.86 10_6/ uL 3.93-5 .22 low Not Available [address] [place], [address] 06/16/2024 15:02:01 06/16/20 24 06/16/2024 COMPL ETE BLOOD COUNT W/DIF F HGB 11.8 g/dL 11.2-1 5.7 normal Not Available [address] [place], [address] 06/16/2024 15:02:01 06/16/20 24 06/16/2024 COMPL ETE BLOOD COUNT W/DIF F HCT 35.1 % 36.0-4 6.0 low Not Available [address] [place], [address] 06/16/2024 15:02:01 06/16/20 24 06/16/2024 COMPL ETE BLOOD COUNT W/DIF F MCV 91 fL 80-95 normal Not Available [address] [place], [address] 06/16/2024 15:02:01 06/16/20 24 06/16/2024 COMPL ETE BLOOD COUNT W/DIF F MCH 30.6 pg 27.0-3 3.0 normal Not Available [address] [place], [address] 06/16/2024 15:02:01 06/16/20 24 06/16/2024 COMPL ETE BLOOD COUNT W/DIF F MCHC 33.6 % 32.0-3 6.0 normal Not Available [address] [place], [address] 06/16/2024 15:02:01 06/16/20 24 06/16/2024 COMPL ETE BLOOD COUNT W/DIF F RDW 12.5 % 11.7-1 4.6 normal Not Available [address] [place], [address] 06/16/2024 15:02:01 06/16/20 24 06/16/2024 COMPL ETE BLOOD COUNT W/DIF F platelet count 256 10_3/ uL 130-40 0 normal Not Available [address] [place], [address] 06/16/2024 15:02:01 06/16/20 24 06/16/2024 COMPL ETE BLOOD COUNT W/DIF F MPV 10.2 fL 8.0-11 .0 normal Not Available [address] [place], [address] 06/16/2024 15:02:01 06/16/20 24 06/16/2024 COMPL ETE BLOOD COUNT W/DIF F neutrophils % 61.1 % Not Available [facility] [address] [place], [address] 06/16/2024 15:02:01 06/16/20 24 06/16/2024 COMPL ETE BLOOD COUNT W/DIF F lymphocytes % 29.4 % Not Available [address] [place], [address] 06/16/2024 15:02:01 06/16/20 24 06/16/2024 COMPL ETE BLOOD COUNT W/DIF F monocytes % 6.9 % Not Available [address] [place], [address] 06/16/2024 15:02:01 06/16/20 24 06/16/2024 COMPL ETE BLOOD COUNT W/DIF F eosinophils % 1.5 % Not Available [address] [place], [address] 06/16/2024 15:02:01 06/16/20 24 06/16/2024 COMPL ETE BLOOD COUNT W/DIF F basophils % 0.6 % Not Available [address] [place], [address] 06/16/2024 15:02:01 06/16/20 24 06/16/2024 COMPL ETE BLOOD COUNT W/DIF F immature grans % 0.5 % Not Available [address] [place], [address] 06/16/2024 15:02:01 06/16/20 24 06/16/2024 COMPL ETE BLOOD COUNT W/DIF F nucleated RBC 0.0 % 0.0-0. 3 normal Not Available [address] [place], [address] 06/16/2024 15:02:01 06/16/20 24 06/16/2024 COMPL ETE BLOOD COUNT W/DIF F absolute neutrophil count 6.59 10_3/ uL 1.2-6. 7 normal Not Available [address] [place], [address] 06/16/2024 15:02:01 06/16/20 24 06/16/2024 COMPL ETE BLOOD COUNT W/DIF F absolute lymphocyte count 3.17 10_3/ uL 1.2-3. 4 normal Not Available [address] [place], [address] 06/16/2024 15:02:01 06/16/20 24 06/16/2024 COMPL ETE BLOOD COUNT W/DIF F absolute monocyte count 0.74 10_3/ uL 0.1-0. 8 normal Not Available [address] [place], [address] 06/16/2024 15:02:01 06/16/20 24 06/16/2024 COMPL ETE BLOOD COUNT W/DIF F absolute eosinophil count 0.16 10_3/ uL 0.0-0. 7 normal Not Available [address] [place], [address] 06/16/2024 15:02:01 06/16/20 24 06/16/2024 COMPL ETE BLOOD COUNT W/DIF F absolute basophil count 0.07 10_3/ uL 0.0-0. 2 normal Not Available [address] [place], [address] 06/16/2024 15:02:01 06/16/20 24 06/16/2024 BASIC METAB OLIC PANEL calcium 9.1 mg/dL 8.5-10 .1 normal Not Available [address] [place], [address] 06/16/2024 14:45:56 06/16/2006/16/2024 BASIC METAB OLIC PANEL glucose 126 mg/dL 74-106 high Not Available Marilin oliver [address] [place], [address] 06/16/2024 14:45:56 06/16/20 24 06/16/2024 BASIC METAB OLIC PANEL BUN 26 mg/dL 7-18 high Not Available Marilin [address] [place], [address] 06/16/2024 14:45:56 06/16/20 24 06/16/2024 BASIC METAB OLIC PANEL creatinine 1.7 mg/dL 0.55-1 .02 high Not Available [address] [place], [address] 06/16/2024 14:45:56 06/16/2006/16/2024 BASIC METAB OLIC PANEL [...] young er-ag ed adult s. Not Available [address] [place], [address] 06/16/2024 14:45:56 06/16/20 24 06/16/2024 BASIC METAB OLIC PANEL sodium 139 mmol/ L 136-14 5 normal Not Available [address] [place], [address] 06/16/2024 14:45:56 06/16/20 24 06/16/2024 BASIC METAB OLIC PANEL potassium 3.4 mmol/ L 3.5-5. 1 low Not Available [address] [place], [address] 06/16/2024 14:45:56 06/16/20 24 06/16/2024 BASIC METAB OLIC PANEL chloride 104 mmol/ L 98-107 normal Not Available [address] [place], [address] 06/16/2024 14:45:56 06/16/20 24 06/16/2024 BASIC METAB OLIC PANEL CO2 25.3 mmol/ L 21.0-3 2.0 normal Not Available [address] [place], [address] 06/16/2024 14:45:56 06/16/20 24 06/16/2024 BASIC METAB OLIC PANEL anion gap 9.7 mmol/ L 3-11 normal Not Available [address] [place], [address] 06/16/2024 14:45:56 06/17/20 24 06/17/2024 BASIC METAB OLIC PANEL calcium 9.0 mg/dL 8.5-10 .1 normal Not Available [address] [place], [address] 06/17/2024 11:32:16 06/17/20 24 06/17/2024 BASIC METAB OLIC PANEL glucose 116 mg/dL 74-106 high Not Available Marilin oliver [address] [place], [address] 06/17/2024 11:32:16 06/17/20 24 06/17/2024 BASIC METAB OLIC PANEL BUN 21 mg/dL 7-18 high Not Available Marilin oliver [address] [place], [address] 06/17/2024 11:32:16 06/17/2006/17/2024 BASIC METAB OLIC PANEL creatinine 1.5 mg/dL 0.55-1 .02 high Not Available [address] [place], [address] 06/17/2024 11:32:16 06/17/20 24 06/17/2024 BASIC METAB [...] young er-ag ed adult s. Not Available [address] [place], [address] 06/17/2024 11:32:16 06/17/20 24 06/17/2024 BASIC METAB OLIC PANEL sodium 139 mmol/ L 136-14 5 normal Not Available [address] [place], [address] 06/17/2024 11:32:16 06/17/20 24 06/17/2024 BASIC METAB OLIC PANEL potassium 3.3 mmol/ L 3.5-5. 1 low Not Available [address] [place], [address] 06/17/2024 11:32:16 06/17/2006/17/2024 BASIC METAB OLIC PANEL chloride 107 mmol/ L 98-107 normal Not Available [address] [place], [address] 06/17/2024 11:32:16 06/17/20 24 06/17/2024 BASIC METAB OLIC PANEL CO2 21.5 mmol/ L 21.0-3 2.0 normal Not Available [address] [place], [address] 06/17/2024 11:32:16 06/17/20 24 06/17/2024 BASIC METAB OLIC PANEL anion gap 10.5 mmol/ L 3-11 normal Not Available [address] [place], [address] 06/17/2024 11:32:16 06/17/20 24 06/17/2024 HEMOG LOBIN A1C hemoglobin A1C 5.4 % <5.7 Refer ence Range s <5.7 Lara l 5.7-6 .4% Predi abete s 6.5% or great er Diagn ostic for diabe raisa (if confi rmed) Refer ences : 1. [facility]i can Diabe raisa [facility] i[facility] n. Clas sific ation and Diagn osis of Diabe raisa. Diabe raisa Care 2018;4 2(Sup pleme nt 1):S1 3-s28 . Not Available [address] [place], [address] 06/17/2024 06:25:25 06/17/20 24 06/17/2024 BASIC METAB OLIC PANEL calcium 9.0 mg/dL 8.5-10 .1 normal Not Available [address] [place], [address] 06/17/2024 05:57:23 06/17/20 24 06/17/2024 BASIC METAB OLIC PANEL glucose 107 mg/dL 74-106 high Not Available Marilin oliver [address] [place], [address] 06/17/2024 05:57:23 06/17/20 24 06/17/2024 BASIC METAB OLIC PANEL BUN 23 mg/dL 7-18 high Not Available Marilin oliver [address] [place], [address] 06/17/2024 05:57:23 06/17/20 24 06/17/2024 BASIC METAB OLIC PANEL creatinine 1.5 mg/dL 0.55-1 .02 high Not Available [address] [place], [address] 06/17/2024 05:57:23 06/17/20 24 06/17/2024 BASIC METAB [...] young er-ag ed adult s. Not Available [address] [place], [address] 06/17/2024 05:57:23 06/17/20 24 06/17/2024 BASIC METAB OLIC PANEL sodium 141 mmol/ L 136-14 5 normal Not Available [address] [place], [address] 06/17/2024 05:57:23 06/17/20 24 06/17/2024 BASIC METAB OLIC PANEL potassium 2.9 mmol/ L 3.5-5. 1 critical low Criti shea value repor liz to and readb ack from FÉLIX CHU (RN), [place] at 0554 06/17 by LAB.I DOTTIE Not Available [address] [place], [address] 06/17/2024 05:57:23 06/17/20 24 06/17/2024 BASIC METAB OLIC PANEL chloride 109 mmol/ L 98-107 high Not Available [address] [place], [address] 06/17/2024 05:57:23 06/17/20 24 06/17/2024 BASIC METAB OLIC PANEL CO2 20.7 mmol/ L 21.0-3 2.0 low Not Available [address] [place], [address] 06/17/2024 05:57:23 06/17/20 24 06/17/2024 BASIC METAB OLIC PANEL anion gap 11.3 mmol/ L 3-11 high Not Available [address] [place], [address] 06/17/2024 05:57:23 06/17/20 24 06/17/2024 COMPL ETE BLOOD COUNT W/DIF F WBC 8.86 10_3/ uL 4.4-10 .8 normal Not Available [address] [place], [address] 06/17/2024 05:44:23 06/17/20 24 06/17/2024 COMPL ETE BLOOD COUNT W/DIF F RBC 3.36 10_6/ uL 3.93-5 .22 low Not Available [address] [place], [address] 06/17/2024 05:44:23 06/17/20 24 06/17/2024 COMPL ETE BLOOD COUNT W/DIF F HGB 10.4 g/dL 11.2-1 5.7 low Not Available [address] [place], [address] 06/17/2024 05:44:23 06/17/20 24 06/17/2024 COMPL ETE BLOOD COUNT W/DIF F HCT 29.8 % 36.0-4 6.0 low Not Available [address] [place], [address] 06/17/2024 05:44:23 06/17/20 24 06/17/2024 COMPL ETE BLOOD COUNT W/DIF F MCV 89 fL 80-95 normal Not Available Marilin [address] [place], [address] 06/17/2024 05:44:23 06/17/20 24 06/17/2024 COMPL ETE BLOOD COUNT W/DIF F MCH 31.0 pg 27.0-3 3.0 normal Not Available [address] [place], [address] 06/17/2024 05:44:23 06/17/20 24 06/17/2024 COMPL ETE BLOOD COUNT W/DIF F MCHC 34.9 % 32.0-3 6.0 normal Not Available [address] [place], [address] 06/17/2024 05:44:23 06/17/20 24 06/17/2024 COMPL ETE BLOOD COUNT W/DIF F RDW 12.3 % 11.7-1 4.6 normal Not Available [address] [place], [address] 06/17/2024 05:44:23 06/17/20 24 06/17/2024 COMPL ETE BLOOD COUNT W/DIF F platelet count 219 10_3/ uL 130-40 0 normal Not Available [address] [place], [address] 06/17/2024 05:44:23 06/17/20 24 06/17/2024 COMPL ETE BLOOD COUNT W/DIF F MPV 10.5 fL 8.0-11 .0 normal Not Available [address] [place], [address] 06/17/2024 05:44:23 06/17/20 24 06/17/2024 COMPL ETE BLOOD COUNT W/DIF F neutrophils % 51.9 % Not Available [address] [place], [address] 06/17/2024 05:44:23 06/17/20 24 06/17/2024 COMPL ETE BLOOD COUNT W/DIF F lymphocytes % 37.2 % Not Available [address] [place], [address] 06/17/2024 05:44:23 06/17/20 24 06/17/2024 COMPL ETE BLOOD COUNT W/DIF F monocytes % 7.4 % Not Available [address] [place], [address] 06/17/2024 05:44:23 06/17/20 24 06/17/2024 COMPL ETE BLOOD COUNT W/DIF F eosinophils % 2.7 % Not Available [address] [place], [address] 06/17/2024 05:44:23 06/17/20 24 06/17/2024 COMPL ETE BLOOD COUNT W/DIF F basophils % 0.6 % Not Available [address] [place], [address] 06/17/2024 05:44:23 06/17/20 24 06/17/2024 COMPL ETE BLOOD COUNT W/DIF F immature grans % 0.2 % Not Available [address] [place], [address] 06/17/2024 05:44:23 06/17/20 24 06/17/2024 COMPL ETE BLOOD COUNT W/DIF F nucleated RBC 0.0 % 0.0-0. 3 normal Not Available [address] [place], [address] 06/17/2024 05:44:23 06/17/20 24 06/17/2024 COMPL ETE BLOOD COUNT W/DIF F absolute neutrophil count 4.59 10_3/ uL 1.2-6. 7 normal Not Available [address] [place], [address] 06/17/2024 05:44:23 06/17/20 24 06/17/2024 COMPL ETE BLOOD COUNT W/DIF F absolute lymphocyte count 3.30 10_3/ uL 1.2-3. 4 normal Not Available [address] [place], [address] 06/17/2024 05:44:23 06/17/20 24 06/17/2024 COMPL ETE BLOOD COUNT W/DIF F absolute monocyte count 0.66 10_3/ uL 0.1-0. 8 normal Not Available [address] [place], [address] 06/17/2024 05:44:23 06/17/20 24 06/17/2024 COMPL ETE BLOOD COUNT W/DIF F absolute eosinophil count 0.24 10_3/ uL 0.0-0. 7 normal Not Available [address] [place], [address] 06/17/2024 05:44:23 06/17/20 24 06/17/2024 COMPL ETE BLOOD COUNT W/DIF F absolute basophil count 0.05 10_3/ uL 0.0-0. 2 normal Not Available [address] [place], [address] 06/17/2024 05:44:23 07/02/20 24 07/02/2024 BASIC METAB OLIC PANEL calcium 9.3 mg/dL 8.5-10 .1 normal Not Available [address] [place], [address] 07/02/2024 16:18:07 07/02/20 24 07/02/2024 BASIC METAB OLIC PANEL glucose 110 mg/dL 74-106 high Not Available Marilin oliver [address] [place], [address] 07/02/2024 16:18:07 07/02/20 24 07/02/2024 BASIC METAB OLIC PANEL BUN 40 mg/dL 7-18 high Not Available Marilin oliver [address] [place], [address] 07/02/2024 16:18:07 07/02/20 24 07/02/2024 BASIC METAB OLIC PANEL creatinine 1.6 mg/dL 0.55-1 .02 high Not Available [address] [place], [address] 07/02/2024 16:18:07 07/02/20 24 07/02/2024 BASIC METAB OLIC PANEL estimated GFR 33.84 mL/min [...] young er-ag ed adult s. Not Available [address] [place], [address] 07/02/2024 16:18:07 07/02/20 24 07/02/2024 BASIC METAB OLIC PANEL sodium 147 mmol/ L 136-14 5 high Not Available [address] [place], [address] 07/02/2024 16:18:07 07/02/20 24 07/02/2024 BASIC METAB OLIC PANEL potassium 3.9 mmol/ L 3.5-5. 1 normal Not Available [address] [place], [address] 07/02/2024 16:18:07 07/02/20 24 07/02/2024 BASIC METAB OLIC PANEL chloride 116 mmol/ L 98-107 high Not Available [address] [place], [address] 07/02/2024 16:18:07 07/02/20 24 07/02/2024 BASIC METAB OLIC PANEL CO2 17.4 mmol/ L 21.0-3 2.0 low Not Available [address] [place], [address] 07/02/2024 16:18:07 07/02/20 24 07/02/2024 BASIC METAB OLIC PANEL anion gap 13.6 mmol/ L 3-11 high Not Available [address] [place], [address] 07/02/2024 16:18:07 07/09/20 24 07/09/2024 COMPL ETE BLOOD COUNT W/DIF F WBC 10.14 10_3/ uL 4.4-10 .8 normal Not Available [address] [place], [address] 07/09/2024 16:14:29 07/09/20 24 07/09/2024 COMPL ETE BLOOD COUNT W/DIF F RBC 3.43 10_6/ uL 3.93-5 .22 low Not Available [address] [place], [address] 07/09/2024 16:14:29 07/09/20 24 07/09/2024 COMPL ETE BLOOD COUNT W/DIF F HGB 10.4 g/dL 11.2-1 5.7 low Not Available [address] [place], [address] 07/09/2024 16:14:29 07/09/20 24 07/09/2024 COMPL ETE BLOOD COUNT W/DIF F HCT 32.0 % 36.0-4 6.0 low Not Available [address] [place], [address] 07/09/2024 16:14:29 07/09/2007/09/2024 COMPL ETE BLOOD COUNT W/DIF F MCV 93 fL 80-95 normal Not Available [place] [address] [place], [address] 07/09/2024 16:14:29 07/09/2007/09/2024 COMPL ETE BLOOD COUNT W/DIF F MCH 30.3 pg 27.0-3 3.0 normal Not Available [address] [place], [address] 07/09/2024 16:14:29 07/09/2007/09/2024 COMPL ETE BLOOD COUNT W/DIF F MCHC 32.5 % 32.0-3 6.0 normal Not Available [address] [place], [address] 07/09/2024 16:14:29 07/09/2007/09/2024 COMPL ETE BLOOD COUNT W/DIF F RDW 13.6 % 11.7-1 4.6 normal Not Available [address] [place], [address] 07/09/2024 16:14:29 07/09/2007/09/2024 COMPL ETE BLOOD COUNT W/DIF F platelet count 286 10_3/ uL 130-40 0 normal Not Available [address] [place], [address] 07/09/2024 16:14:29 07/09/2007/09/2024 COMPL ETE BLOOD COUNT W/DIF F MPV 11.3 fL 8.0-11 .0 high Not Available [address] [place], [address] 07/09/2024 16:14:29 07/09/2007/09/2024 COMPL ETE BLOOD COUNT W/DIF F neutrophils % 75.1 % Not Available [address] [place], [address] 07/09/2024 16:14:29 07/09/2015 0707/09/2024 COMPL ETE BLOOD COUNT W/DIF F lymphocytes % 16.1 % Not Available [address] [place], [address] 07/09/2024 16:14:29 07/09/20 24 07/09/2024 COMPL ETE BLOOD COUNT W/DIF F monocytes % 6.5 % Not Available [address] [place], [address] 07/09/2024 16:14:29 07/09/20 24 07/09/2024 COMPL ETE BLOOD COUNT W/DIF F eosinophils % 1.3 % Not Available [address] [place], [address] 07/09/2024 16:14:29 07/09/2007/09/2024 COMPL ETE BLOOD COUNT W/DIF F basophils % 0.6 % Not Available [address] [facility] [place], [address] 07/09/2024 16:14:29 07/09/2007/09/2024 COMPL ETE BLOOD COUNT W/DIF F immature grans % 0.4 % Not Available [address] [place], [id number] 07/09/2024 16:14:29 07/09/2007/09/2024 COMPL ETE BLOOD COUNT W/DIF F nucleated RBC 0.0 % 0.0-0. 3 normal Not Available [address] [place], [address] 07/09/2024 16:14:29 07/09/2007/09/2024 COMPL ETE BLOOD COUNT W/DIF F absolute neutrophil count 7.62 10_3/ uL 1.2-6. 7 high Not Available [address] [place], [address] 07/09/2024 16:14:29 07/09/20 24 07/09/2024 COMPL ETE BLOOD COUNT W/DIF F absolute lymphocyte count 1.63 10_3/ uL 1.2-3. 4 normal Not Available [address] [place], [address] 07/09/2024 16:14:29 07/09/20 24 07/09/2024 COMPL ETE BLOOD COUNT W/DIF F absolute monocyte count 0.66 10_3/ uL 0.1-0. 8 normal Not Available [address] [place], [address] 07/09/2024 16:14:29 07/09/20 24 07/09/2024 COMPL ETE BLOOD COUNT W/DIF F absolute eosinophil count 0.13 10_3/ uL 0.0-0. 7 normal Not Available [address] [place], [address] 07/09/2024 16:14:29 07/09/20 24 07/09/2024 COMPL ETE BLOOD COUNT W/DIF F absolute basophil count 0.06 10_3/ uL 0.0-0. 2 normal Not Available [address] [place], [address] 07/09/2024 16:14:29 07/09/20 24 07/09/2024 BASIC METAB OLIC PANEL calcium 9.2 mg/dL 8.5-10 .1 normal Not Available [address] [place], [address] 07/09/2024 16:20:26 07/09/20 24 07/09/2024 BASIC METAB OLIC PANEL glucose 228 mg/dL 74-106 high Not Available Marilin oliver [address] [place], [address] 07/09/2024 16:20:26 07/09/20 24 07/09/2024 BASIC METAB OLIC PANEL BUN 45 mg/dL 7-18 high Not Available Marilin oliver [address] [place], [address] 07/09/2024 16:20:26 07/09/2007/09/2024 BASIC METAB OLIC PANEL creatinine 1.9 mg/dL 0.55-1 .02 high Not Available [address] [place], [address] 07/09/2024 16:20:26 07/09/20 24 07/09/2024 BASIC METAB OLIC PANEL estimated GFR 27.37 mL/min /1.73M 2 The eGFR is calcu [...] young er-ag ed adult s. Not Available [address] [place], [address] 07/09/2024 16:20:26 07/09/2007/09/2024 BASIC METAB OLIC PANEL sodium 147 mmol/ L 136-14 5 high Not Available [address] [place], [address] 07/09/2024 16:20:26 07/09/2007/09/2024 BASIC METAB OLIC PANEL potassium 3.4 mmol/ L 3.5-5. 1 low Not Available [address] [place], [address] 07/09/2024 16:20:26 07/09/2007/09/2024 BASIC METAB OLIC PANEL chloride 112 mmol/ L 98-107 high Not Available [address] [place], [address] 07/09/2024 16:20:26 07/09/2007/09/2024 BASIC METAB OLIC PANEL CO2 19.6 mmol/ L 21.0-3 2.0 low Not Available [address] [place], [address] 07/09/2024 16:20:26 07/09/2007/09/2024 BASIC METAB OLIC PANEL anion gap 15.4 mmol/ L 3-11 high Not Available [address] [place], [address] 07/09/2024 16:20:26 07/09/20 24 07/09/2024 MAGNE SIUM magnesium 1.9 mg/dL 1.8-2. 4 normal Not Available [facility] [address] [facility] , [place], [address] 07/09/2024 16:20:27 01/19/20 24 01/19/2024 MRI imagi ng repor t Patien t Name: Martha Payton Unit #: [id number] Loc: DI Orderi ng Provid er: Dana Lainezradhalacy schafer Accoun t #: [id number] Status : REG CLI Primar y [...] t, nonhem orrhag ic. DATA REPOSI TORY: Ordere d By: Yulissa Lainez CC: ------ ------ ------ ------ ------ ------ ------ ------ ------ ------ ------ ------ - Dictat ed By: Aden Johnston M.D. 1339 1339 Transc ribed By: Vickie RODRIGUEZ,Yessenia kendra 1338 This is privil eged, confid ential [...] at the addres s above. Thank- you. [email or web address] [address] [place], [address] 01/19/2024 15:21:28 01/19/20 24 01/19/2024 MRI, brain , w/o contr ast No observ ation record ed. [email or web address] [facility] (Radiology) [address] [place] [address] [place], [address], 01/20/2024 08:49:10 01/19/20 24 01/19/2024 MRI, brain , w/o contr ast No observ ation record ed. [email or web address] [facility] (Radiology) [address] [facility] [place], [address], 01/20/2024 08:49:24 03/02/20 24 03/02/2024 MRI imagi ng repor t Patien t Name: Martha Payton Unit #: [id number] Loc: DI Orderi ng Provid er: Yulissa Lainez Accoun t #: [id number] Status : REG CLI Primar y [...] MR BRAIN WO from 2023 FINDIN GS: Olga d Arteri es: No aneury sm, occlus [...] occlus ion or signif icant stenos is. Sole Layer Hand ior Cerebr al Arteri es: Right: No aneury sm, occlus ion or signif icant stenos is. Left: No aneury sm, occlus ion or signif icant stenos is. The left c software engineer ior cerebr al artery arises from the left c software engineer ior commun icatin g artery which is [...] john of the brain. DATA REPOSI TORY: Ordere d By: Yulissa [...] error, please notify us immedi ately at [phone] and return the origin al report to us at the addres s above. Thank- you. [email or web address] [facility] [address] [place], [address] 03/03/2024 18:56:46 03/02/20 24 03/02/2024 MRI imagi ng repor t Patikatie t Name: Marisa carnesMartha yovani Carnes Unit #: [id number] Loc: DI Orderi ng Provid er: Yulissa Lainez Accoun t #: [id number] Status : REG CLI Primar y [...] occlus ion or signif icant stenos is. Stand Up Comedian al Caroti d: Right: No eviden ce of occlus ion or signif icant stenos is. Left: No eviden ce of occlus ion or signif icant stenos is. 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 1404 140 Transc ribed By: Satinder Odonnell 1404 This is privil eged, confid ential inform ation intend ed only for the provid er named. Any use or distri bution by any person other than this provid er is strict ly prohib ited. If you receiv e this report in error, please notify us immedi ately at [phone] and return the origin al report to us at the addres s above. Thank- you. [email or web address] [address] [place], [address] 03/03/2024 18:56:46 03/09/20 24 03/09/2024 ultra sound imagi ng repor t Patien t Name: Martha Payton Unit #: [id number] Loc: DI Orderi ng Provid er: Yulissa Lainez t #: [id number] Status : REG CLI Primar y Care Provid er: Yulissa Lainez Date of Exam: 02/20 05/15 Sex: F Admiss ion Date: : 1949 Age: 73 ------ ------ --- APPROV ED REPORT ------ ------ -- EXAM: Compre hensiv e 2D, Dopple r, and color- flow Echoca rdiogr am Patikatie t Locati on: Out-Pa tient Sonogr apher: [...] (TR) 22.9 mmHg Ordere d By: Yulissa Lainez CC: ------ [...] at the addres s above. Thank- you. [email or web address] [facility] [address] [place], [address] 03/15/2024 11:38:17 03/09/20 24 03/09/2024 CT imagi ng ofelia t Obdulia t Name: Martha Payton Unit #: [id number] Loc: DI Orderi ng Provid er: Yulissa Lainez Accoun t #: [id number] Status : REG CLI Primar y [...] Regist ry (DIR) with the [place] of Radiol ogy (ACR). RADIAT ION [...] at the addres s above. Thank- you. [email or web address] [facility] [address], [place], [address] 03/15/2024 11:38:18 06/12/20 24 06/12/2024 x-ray imagi ng repor t Obdulia t Name: Martha Payton Unit #: [id number] Loc: ER Orderi ng Provid er: Lacho Correa M.D. Accoun t #: [id number] Status : REG ER Primar y [...] REPOSI TORY: RADIAT ION DOSE DELIVE RED: Ordernguyen d By: Lacho Correa M.D. CC: ------ [...] addres s above. Thank- you. INTERFACE [facility] [address], [place], [address] 06/12/2024 18:34:32 06/12/20 24 06/12/2024 x-ray imagi ng repor t Patien t Name: Martha Payton Unit #: [id number] Loc: ER Orderi ng Provid er: Lacho Correa M.D. Accoun t #: [id number] Status : REG ER Primar y [...] change s in the left hip. IMPRES BSAIL: No pelvic nor hip fractu res eviden [...] addres s above. Thank- you. INTERFACE [facility] [address], [place], [address] 06/12/2024 18:34:33 06/12/20 24 06/12/2024 CT imagi ng repor t Patien t Name: Martha Payton Unit #: [id number] Loc: ER Orderi ng Provid er: Lacho Correa M.D. Accoun t #: [id number] Status : REG ER Primar y [...] indica tion); or iterat jr recons tructi on 010: Total DLP = 0.00 mGy-cm Ordere [...] error, please notify us immedi ately at [phone] and return the origin al report to us at the addres s above. Thank- you. 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 Right middle cerebr al artery : Modera te to severe stenos is c software engineer ior M3 branch right MCA. No signif icant stenos is remain lien of the right MCA. Right anteri or cerebr al artery : No occlus ion or signif icant stenos is. No aneury sm. Left supply chain intern al caroti d artery : Calcif ied plaque with modera te stenos is cavern ous left ICA. Left middle cerebr al artery : No occlus ion or signif icant stenos is. No aneury sm. Left anteri or cerebr al artery : No occlus ion or signif icant stenos is. No aneury sm. 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 No aneury sm. Left verteb ral artery : No occlus ion or signif icant stenos is. No aneury sm. Basila r artery : No occlus ion or signif icant stenos is. No aneury sm. Right c software engineer ior cerebr al artery : No occlus ion or signif icant stenos is. No aneury sm. Left c software engineer ior cerebr al artery : No occlus ion or signif icant stenos is. No aneury sm. HEAD: Brain: Stable right c software engineer ior fronta l and pariet al infarc [...] rkable . IMPRES BASIL: 1. Stable right c software engineer ior fronta l and [place] al infarc t. 2. 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 3. Calcif ied plaque with modera te stenos is cavern ous left ICA. 4. Modera te to severe stenos is c software engineer ior M3 branch right MCA. ASSESS MENT: [...] No dissec tion or occlus ion. Right supply chain intern al caroti d artery : No stenos is of the extrac ranial segmen t. No dissec tion or occlus ion. Right customer consultant al caroti d artery : No occlus ion or stenos is of the origin . Left common caroti d artery : No stenos is. No dissec tion or occlus ion. Left supply chain intern al caroti d artery : No stenos is of the extrac ranial segmen t. No dissec tion or occlus ion. Left customer consultant al caroti d artery : No occlus [...] the cervic al segmen t of the supply chain intern al caroti d artery is based on NASCET criter ia. Normal is no stenos is. Mild is less than 50% stenos is. Modera te is 50-69% stenos is. Severe is 70% to 99% stenos is. Total occlus ion is no detect able patent lumen. Dictat ed and Authen ticate d by: Abelardo Nagel MD. Ordermariola ng:PJosé Miguel ISST Shelby pina MD Access ion#=[id number] Ordere d By: CC: ------ ------ ------ [...] error, please notify us immedi laurel at [phone] and return the origin al report to us at the addres s above. Thank- you. [email or web address] [facility] [address] [place], [address] 06/15/2024 15:45:36 06/13/2006/13/2024 vrad repor t Patien t Name: Martha Payton Unit #: [id number] Loc: MS Thania barrios Provid er: Accoun t #: [id number] Status : ADM IN Primar y [...] MD. Orderi ng:Peyton Zhou MD Access ion#=[id number] Ordere d By: CC: ------ ------ ------ ------ ------ ------ ------ ------ ------ ------ ------ ------ ---- Dictat ed By: Report s vrad 09 1028 Transc ribed By: Chelsea Chanel 0906 This is privil eged, confid ential inform ation intend ed only for the provid er named. Any use or distri bution by any person other than this provid er is strict ly prohib ited. If you receiv e this report in error, please notify us immedi ately at [phone] and return the origin al report to us at the addres s above. Thank- you. [email or web address] [facility] [address], [place], [address] 06/15/2024 15:45:36 06/13/20 24 06/13/2024 CT imagi ng ofelia t Obdulia t Name: Marhta Payton Unit #: [id number] Loc: Ordermariola barrios Provid er: Lacho Correa M.D. Accoun t #: [id number] Status : ADM IN Primar y Care [facility] er: Yulissa Lainez Date of Exam: 05/24 10/15 Sex: F : 1949 Age: 73 Exam(s ) a CT:CT brain neck CTA Exam(s ) CT BRAIN NECK CTA EXAM: CT BRAIN NECK CTA CLINIC AL HISTOR Y: occipi raaceli stroke . TECHNI QUE: Imagin g Protoc [...] right side there is calcif ied plaque c software engineer iorly at the caroti d bulb-b ifurca tion level and there is also calcif ied plaque on the medial and c software engineer ior saldaña of the proxim al right ICA. Amount of stenos is at this level is estima liz at approx imatel y 40 percen t in the proxim al right ICA. The right ICA is nicely patent in the upper neck. Left caroti d bulb exhibi ts some calcif ied plaque anteri sherry. There is calcif ied plaque on the c software engineer ior wall the proxim al left ICA. Approx imatel y 30 percen t stenos is at this level. There is also self like plaque at the origin left ICA with more promin ent stenos is at this level, approx imatel y 70 percen t. Left ICA in the upper neck is patent . Sole Layer Hand ior circul ation: Both verteb ral arteri [...] Brain W: Anteri or circul ation: Both supply chain intern al caroti d arteri es are patent in the skull base-c arotid canals . Both intra cavern ous supply chain intern al caroti d arteri es are periph erally calcif ied. There is a signif icant focal stenos is at the juncti on of the intra cavern ous and suprac linoid aspect of the right supply chain intern al caroti d artery with approx [...] or commun icatin g artery . Left c software engineer ior cerebr al artery is patent withou t signif icant stenos is. There is mild-m oderat e narrow ing in the proxim al right middle cerebr al artery . No intral uminal thromb us seen. No aneury sms. No dissec tion flaps. Sole Layer Hand ior circul ation: The basila r artery ascend s in the midlin e. Distal ly it gives off patent right c software engineer ior cerebr al artery althou gh there is a modera te stenos is in the c software engineer ior cerebr al artery a few cm distal to its origin . The left c software engineer ior cerebr al artery is predom inantl y fed by a c software engineer ior commun icatin g artery on the left side of the [place]. This that There is no eviden ce of aneury sm at the tip of the basila r artery nor elsewh ere in the [place]. CT BRAIN: Again noted is [...] facili ty are submit liz to the [facility] al Radiol ogy Data Regist ry [...] Dictat ed By: Aden Johnston M.D. 1545 154 Transc ribed By: Vickie RODRIGUEZ,Yessenia gardner 154 This is privil eged, confid ential inform ation intend ed only for the provid er named. Any use or distri bution by any person other than this provid er is strict ly prohib ited. If you receiv e this report in error, please notify us immedi ately at [phone] and return the origin al report to us at the addres s above. Thank- you. INTERFACE [facility] [address] [facility] [place], [address] 06/13/2024 15:50:13 06/13/20 24 06/13/2024 CT imagi ng repor t Patien t Name: Martha Payton Unit #: [id number] Loc: Ordermariola ng Provid er: Sanjana unger,Da vid Accoun t #: [id number] Status : ADM IN Primar [...] facili ty are submit liz to the [facility] al Radiol ogy Data Regist ry (NRDR) Dose Index Regist ry (DIR) with the [place] of Radiol ogy (ACR). RADIAT ION OPTIMI ZATION : All CT [facility] at this [facility] use at least one of these dose [...] error, please notify us immedi ately at [phone] and return the origin al report to us at the addres s above. Thank- you. INTERFACE [address], [place], [address] 06/13/2024 16:16:16 06/14/20 24 06/14/2024 MRI imagi ng repor t Patien t Name: Martha Payton Unit #: [id number] Loc: MS Thania barrios Provid er: Alexsanderfranklin cornel,Da vid Accisael t #: [id number] Status : ADM IN Primar [...] addres s above. Thank- you. INTERFACE [facility] [address], [place], [address] 06/14/2024 12:37:22 06/14/20 24 06/14/2024 ultra sound imagi ng repor t Patien t Name: Martha Payton Unit #: [id number] Loc: MS Thania barrios Provid er: Jabari Bustamante Accoun t #: [id number] Status : ADM IN Primar [...] bution by any person other than this [facility] er is strict ly prohib ited. If you receiv e this report in error, please notify us immedi laurel at [phone] and return the origin al report to us at the addres s above. Thank- you. INTERFACE [facility] [address] , [place], [address] 06/14/2024 15:22:54 Result Notes None recorded. Problems Name Problem SNOMED Code Status Onset Date Resolution Date Notes Provider Name and Address Organization Details Recorded Time Poor short-term memory 205263465 Active [address], [place], [address], [facility] 4 10:28:13 Essential hypertensi on 80655545 Active [address], [place], [address], [facility] 4 10:29:23 Blood glucose outside reference range 208022854 Active [address], [place], [address], [facility] 4 10:30:43 Iritis 45087238 Active [address], [place], [address], [facility] 4 10:31:43 Tobacco dependence caused by cigarettes 022086012987 06148 Active [address], [place], [address] , [facility] 4 12:23:42 Adjustment disorder with depressed mood 77315804 Active [address], [place], [address] , [facility] 4 12:26:28 Prediabete s 808625758 Active 2023 5.7% on [address], [place], [address] , [facility] 4 07:52:17 History of coronary artery bypass grafting 054014473 Active 2009 In 2010 per prior med recs [address], [place], [address] , [facility] 4 14:53:13 Unexplaine d weight loss 530897060 Active [address], [place], [address] , [facility] 4 13:43:55 Chronic cough 50015763 Active [address], [place], [address], [facility] 13:44:00 Pain of left shoulder joint 759291264875 84116 Active [address], [place], [address], [facility] 13:44:16 Hyperlipid emia 44270861 Active [address], [place], [address], [facility] 13:48:11 Chronic obstructiv e pulmonary disease 36941961 Active [address], [place], [address], [facility] 13:49:36 Lacunar infarction 121093837 Active [address], [place], [address], [facility] 18:17:27 Bradycardi a 16245476 Active [address], [place], [address], [facility] 18:36:12 Chronic kidney disease stage 3B 476692401 Active 2023 NOted in 1 Note in prior MR as stage 3 D/T HTN. Plan to control BP as care plan. [address], [place], [address], [facility] 05:24:31 Pulmonary emphysema 68193734 Active [address], [place], [address], [facility], [facility]. 12:31:17 Leukocytos is 535509397 Active [address], [place], [address], [facility]. 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 08:10:59 Sundowning 207183019 Active [address], [place], [address], [facility]. 08:12:54 Loose stool 575585544 Active [address], [place], [address], [facility]. 09:45:26 Unsteady when walking 88079325 Active [address], [place], [address], [facility], [facility]. 10:02:59 Decreased diastolic arterial pressure 18978990 Active [address], [facility] [place], [address], [facility] 10:04:18 Problem Notes None recorded. Procedures Surgical History None recorded. Imaging Results Imaging Date Name Status LastModified by [facility] Details LastModified Time 01/19/2024 MRI imaging report completed [address] [place], [address] 01/19/2024 15:21:28 01/19/2024 MRI, brain, w/o contrast [facility] [address] [place] [address] [place], [address], 01/20/2024 08:49:10 01/19/2024 MRI, brain, w/o contrast [facility] [address] [place] [address] [place], [address], 01/20/2024 08:49:24 03/02/2024 MRI imaging report completed [address] [place], [address] 03/03/2024 18:56:46 03/02/2024 MRI imaging report completed [address] [place], [address] 03/03/2024 18:56:46 03/09/2024 ultrasound imaging report completed [address] [place], [address] 03/15/2024 11:38:17 03/09/2024 CT imaging report completed [address] [place], [address] 03/15/2024 11:38:18 06/12/2024 x-ray imaging report completed INTERFACE [address] [place], [address] 06/12/2024 18:34:32 06/12/2024 x-ray imaging report completed INTERFACE [address] [place], [address] 06/12/2024 18:34:33 06/12/2024 CT imaging report completed INTERFACE [address] [place], [address] 06/12/2024 18:43:33 06/12/2024 vrad report completed [email or web address] [place], [address] 06/15/2024 15:45:36 06/13/2024 vrad report completed [email or web address] [place], [address] 06/15/2024 15:45:36 06/13/2024 CT imaging report completed INTERFACE [address] [place], [address] 06/13/2024 15:50:13 06/13/2024 CT imaging report completed INTERFACE [address] [place], [address] 06/13/2024 16:16:16 06/14/2024 MRI imaging report completed INTERFACE [address] [place], [address] 06/14/2024 12:37:22 06/14/2024 ultrasound imaging report completed INTERFACE [address] [place], [address] 06/14/2024 15:22:54 Procedure Notes None recorded. Medical Equipment None Reported. Allergies Allergen ID Allergen Name Allergen Category Reaction Reaction Severity Criticality Documentation Date Start Date Code Code System Note Provider Name and Address Organization Details Recorded Time 92755 chlorthal idone medicatio n Not available Not available [facility] 01/28/[address], [place], [address] [place] [address] 17:56:24 94401 hydrochlo rothiazid e medicatio n Not available Not available [facility] 01/28/2024 5487 Rx[address], [place], [address] [place] [address] 17:56:38 Medications Name Sig Start Date Stop Date Status Note LastModified by Organization Details LastModified Time losartan 50 mg tablet Take 1 tablet twice a day by oral route as directed . 2023 active Per [employer] E[facility] Not Available Not Available Not Available quetiapin e 25 mg tablet 1 tablet by mouth each night 2023 active Not Available Not Available Not Avai lable atorvasta tin 80 mg tablet Take 1 tablet every day by oral route at bedtime. 2023 active updated from [employer] Not Available Not Available Not Available cefuroxim [...] route as directed . 2023 active per [employer] EMR Not Available Not Available Not Available [...] as directed . 2023 active Updated from [employer] Not Available Not Available Not Available aspirin [...] route as directed . 2023 active Per [employer] [facility] EMR Not Available Not Available [...] Updated DateTime 4 147.32 cm 21.8 kg/m2 52819.3 2 g 98.1 [degF] 100 % 100 % 72 /min 142 mm[Hg] 84 mm[Hg] DEEDEE PITTMAN [place] [facility]. 4 09:58:12 Date Recorded Body height Body mass index (BMI) Body weight Body temperature Oxygen saturation Oxygen saturation in Arterial blood by Pulse oximetry Heart rate Systolic blood pressure Diastolic blood pressure Provider Name and Address Organization Details Last Updated DateTime 4 147.32 cm 21.2 kg/m2 08159.9 8 g 98.1 [degF] 98 % 98 % 55 /min 122 mm[Hg] 90 mm[Hg] DEEDEE PITTMAN MA [facility], [facility] 4 13:06:09 Date Recorded Body height Body mass index (BMI) Body weight Body temperature Oxygen saturation Oxygen saturation in Arterial blood by Pulse oximetry Heart rate Systolic blood pressure Diastolic blood pressure Provider Name and Address Organization Details Last Updated DateTime 4 147.32 cm 20.8 kg/m2 60828.0 8 g 97.7 [degF] 97 % 97 % 62 /min 130 mm[Hg] 72 mm[Hg] DEEDEE PITTMAN MA [facility] 4 11:29:51 Date Recorded Body height [...] Updated DateTime 4 147.32 cm 20.5 kg/m2 37359.4 5 g 98.1 [degF] 99 % 99 % 62 /min 18 /min 195 mm[Hg] 63 mm[Hg] 211 mm[Hg] 102 mm[Hg] 210 mm[Hg] 75 mm[Hg] 199 mm[Hg] 66 mm[Hg] Keesha Zaragoza MA [facility] 4 21:02:19 Date Recorded Body height Body mass index (BMI) Body weight Body temperature Oxygen saturation Oxygen saturation in Arterial blood by Pulse oximetry Respiratory rate Heart rate Systolic blood pressure Diastolic blood pressure Provider Name and Address Organization Details Last Updated DateTime 4 147.32 cm 19.9 kg/m2 21588.9 9 g 98.6 [degF] 100 % 100 % 14 /min 70 /min 108 mm[Hg] 48 mm[Hg] SUKHDEV TORIBIO RN [facility] 4 09:38:14 Social History Question Answer Notes LastModified by Organizat ion Details LastModified Time Tobacco Smoking Status Current Every Day Smoker [place], [facility] 11/01/2023 11:33:08 Would You Say That, [...] Of Your Most Recent Tobacco Screening? 05/14/2024 [email or web address] Information n ot available 05/14/2024 How Much Tobacco Do You Smoke? 0.5 PPD [email or web address] Information not available 05/14/2024 Has Tobacco Cessation Counseling Been Provided? Yes Information not available 11/01/2023 On What Date Was Tobacco Cessation Counseling Provided? 05/14/2024 [email or web address] Information not available 05/14/2024 Do You Or [...] trivalent, PF 07/09/[address], [address] 07/09/2024 11:46:08 COVID-19, mRNA, LNP-S, PF, angie-sucrose, 30 mcg/0.3 mL 07/09/[address], [place] [id number], [facility] 07/09/2024 11:46:08 Tdap 07/09/[address] 07/09/2024 11:46:08 Past Encounters Encounter ID Performer Location Encounter Start Date Encounter Closed Date Diagnosis/Indication Diagnosis SNOMED-CT Code Diagnosis ICD10 Code [id number] SAJAN REINOSO [address],[place] [address] [facility] [place] [address] 11/01/2023 11:23:08 11/01/2023 12:27:22 Pain of left shoulder region 2604933072 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-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 1746501575 86822 Z79.1 Elevated blood-pressure reading without diagnosis of hypertension 501611458 R03.0 Cough 13620249 R05.9 [id number] MARIAM FANG [facility] [address] [facility] [place] [facility] [place] [address] 12/11/2023 09:48:55 12/11/2023 11:47:56 Poor short-term memory 215135507 R41.3 History of coronary artery bypass grafting 742235454 Z95.1 Essential hypertension 39052990 I10 Diabetes m ellitus screening 951625115 Z13.1 Hyperlipid emia screening 166934387 Z13.220 Adjustment disorder with depressed mood 15486973 F43.21 Tobacco de pendence caused by cigarettes 9283318259 0940019 F17.209 [id number] MARIAM FANG [facility] [address] [facility] [place] [address] 01/28/2024 12:55:09 01/28/2024 14:09:34 Unexplained weight loss 280537605 R63.4 Chronic cough 18510946 R 05.3 Pain of le ft shoulder joint 0874625190 1843258 M25.512 Hyperlipidemia 71720990 E78.5 Chronic ob structive pulmonary disease 61817529 J44.9 Lacunar infarction 79640 8000 I63.81 Bradycardia 98212704 R00 .1 [id number] MARIAM FANG [facility] [address] [place] [address] 03/29/2024 11:20:50 03/29/2024 12:12:54 Tobacco dependence caused by cigarettes 3167291345 1015614 F17.210 Pulmonary emphysema 8743 3001 J43.9 Lacunar infarction 74815 8000 I63.81 Normal bod y mass index 51997512 Z68.20 Essential hypertension 50596916 I10 [id number] ISATU ZAMORA PA-C [address],[place] [address] [address] [place] [address] 05/14/2024 18:33:21 05/14/2024 21:16:51 Pyuria 3409027 R82.81 [id number] MARIAM FANG [facility] [address] [facility] [place] [facility] [place] [address] 07/09/2024 09:29:21 07/09/2024 10:24:04 Right sided cerebral hemisphere cerebrovascular accident 911819998 I63.9 Hypokalemia 11288413 E87 .6 Essential hypertension 87833223 I10 Sundowning 562620055 F05 Loose stool 176089964 R1 9.5 Unsteady when walking 22 443106 R26.89 Decreased diastolic arterial pressure 37747039 R03.1 Active or passive immunization 816378863 Z23 Health Concerns Section Related Observation LastModified by Organization Detai ls LastModified Time None Recorded Concern Status LastModified by Organization Details LastModified Time None Recorded Advance Directives Directive None Recorded Payers Encounter Date Sequence Insurance Name Policy Number Policy Nicole Covered Member ID Nicole Member ID Guarantor Name 12/11/2023 2 [employer] (MEDICAID) Jennifer Archer [id number] Jennifer Archer 12/11/2023 1 [place] [employer] Jennifer Archer [id number] Jennifer Archer 01/28/2024 2 [employer] (MEDICAID) Jennifer Archer [id number] Jennifer Archer 01/28/2024 1 [place] [employer] Jennifer Archer [id number] Jennifer Archer 03/29/2024 2 [employer] (MEDICAID) Jennifer Archer [id number] Jennifer Archer 03/29/2024 1 [place] [employer] Jennifer Archer [id number] Jennifer Archer 05/14/2024 2 [employer] [facility] (MEDICAID) Jennifer Archer [id number] Jennifer Archer 05/14/2024 1 [place] [employer] Jennifer Archer [id number] Jennifer Archer 07/09/2024 2 [facility] (MEDICAID) Jennifer Archer [id number] Jennifre Archer 07/09/2024 1 [place] [email or web address] Jennifer Archer [id number] Jennifer Archer Notes Date Note Type Note Provider Name and Address Organization Details Recorded Time 12/11/2023 text/html HPI Notes: Pt., 73-F, new [...] Had out break 06/2023 and seen at [facility] tx. w/Acyclovir. Patient is current daily smoker, began [...] occurred when she was living in [place], [place], and was seen at a local [...] intake reports possible memory concerns. MARIAM FANG [address], [place], [address], [facility]. 12/11/2023 12:27:14 01/28/2024 text/html HPI Notes: Pt, 7 3-F, here for f/u after brain imaging revealed an there is also a singular tiny focus of restricted diffusion in the left periventricular white matter consistent with acute lacunar infarct, nonhemorrhagic. from 01/19/2024. 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 improved w/Ventolin. [address]IAM [address], [place], [address], [facility], [facility]. 01/28/2024 18:42:01 03/29/2024 text/html HPI Notes: [...] No malignancy. MARIAM FANG [address], [place], [address], [facility]. 03/29/2024 12:38:37 05/14/2024 text/html HPI Notes: [...] clear at this time. [address], [place], [address], [facility]. 05/15/2024 13:54:05 07/09/2024 text/html HPI Notes: Pt, 7 4-F, here for MARIAH after d/c from [facility] 06/17/2024 for Subacute right occipital CVA, hypertension. [...] pressure today. MARIAM FANG [address], [place], [address], [facility]. 07/09/2024 11:48:31 OBGyn Episode No OBEpisode recorded.
[2024-07-12 20:01] LABS: Bilirubin Negative (Negative); Blood Negative (Negative); Clarity Clear (Clear); Glucose Negative (Negative); Ketones Negative (Negative); Leukocyte Esterase Negative (Negative); Nitrite Negative (Negative); Urobilinogen 0.2 mg/dL (Up to 0.2); pH 5.5 (5-8)
== END 2024-07-12 16:51 | disposition home or self-care (01) ==
LOC: LBN 16:50
PROVIDERS: PCP Student in an Organized Health Care Education/Training Program; Visit Provider Student in an Organized Health Care Education/Training Program
DX: F01.50 Vascular dementia, unspecified severity, without behavioral disturbance, psychotic disturbance, mood disturbance, and anxiety (principal)
CPT/HCPCS: 81003; 87086

== ENCOUNTER 2024-07-15 12:17 | Outpatient (REF) | payer MEDICARE, MEDICAID, SELFPAY ==
[2024-07-15 15:42] LABS: Abs Immature Grans 0.27 10^3/uL (0.0-0.06); Absolute Basophil Count 0.12 10^3/uL (0.0-0.2); Absolute Lymphocyte Count 4.86 10^3/uL (1.2-3.4); Absolute Monocyte Count 1.04 10^3/uL (0.1-0.8); Basophils % 0.7 %; Eosinophils % 2.1 %; HCT 32.4 % (36.0-46.0); HGB 11.3 g/dL (11.2-15.7); Immature Grans % 1.5 %; Lymphocytes % 27.7 %; MCH 30.3 pg (27.0-33.0); MCHC 34.9 % (32.0-36.0); MCV 87 fL (80-95); Monocytes % 5.9 %; Neutrophils % 62.1 %; Platelet Count 351 10^3/uL (130-400); RBC 3.73 10^6/uL (3.93-5.22); RDW 13.1 % (11.7-14.6); RDW-SD 41.1 fL; WBC 17.56 10^3/uL (4.4-10.8)
[2024-07-15 16:02] LABS: Absolute Eosinophil Count 0.37 10^3/uL (0.0-0.7)
== END 2024-07-15 12:18 | disposition home or self-care (01) ==
LOC: NCHCN 12:17
PROVIDERS: PCP Student in an Organized Health Care Education/Training Program; Visit Provider Student in an Organized Health Care Education/Training Program
DX: D64.9 Anemia, unspecified (principal)
CPT/HCPCS: 82272; 85025

== ENCOUNTER 2024-07-16 13:07 | Inpatient (IN) | payer MEDICARE, MEDICAID, SELFPAY ==
[2024-07-16] VITALS (31 sets, daily range): BP systolic 111–158; BP diastolic 34–120; PULSE 55–83; RESP 8–20; TEMP 36.9–37.2; O2SAT 79–100
--- OUTSIDE RECORDS SUMMARY | 2024-07-16 13:16 | XMS_ITS | Data Portability ---
Author Organization [place] - [facility] Address Aron [place] [address] Assessment Encounter Date Assessment Date Assessment LastModified by Organization Details LastModified Time 01/28/2024 01/28/2024 Appointment slightly scattered with unexplained weight loss, so Donna supervisor of way agreeable to have pt. back in office for EKG in light of Lacunar Infarct/Bradyc ardia today. We will hold off on cardiac monitoring order to do the EKG in office first. [email or web address] Not available 01/28/2024 18:41:23 07/09/2024 07/09/2024 Supports at home: - OT, Nursing, Social Work dye house vat worker, Donna please w/supports. For Annual in September: Consider DEXA/risk factors of former smoker: Mammography: Life expectancy < 10 years, especially given recent stroke and advancing dementia, won't recommend future mammograms unless symptomatic. - Advanced Directive not on file [email or web address] Not available 07/09/2024 11:48:19 Plan of Treatment Reminders Order Date Submit Date Provider Last Modified By Organization Details Last Modified Time Details Appointments Follow Up 30 2023 08:30A M Eduardo Fatou Not available Not available Not available Annual Wellness Exam 40 2024 02:30P M Eduardo Fatou Not available Not available Not available Lab lipid panel, serum 2023 024 [email or web address] [facility] (Registration ), [address] [place] [address] [facility] [place], [address], 12/18/2023 08:29:02 vitamin B12 + folate, serum or blood - 1 SST, 1LAV, 1TIGER [address] [facility] (Registration ), [address] [place] [address] [place], [address], 12/18/2023 08:29:01 TSH, serum or plasma [address] [facility] (Registration ), [address] [place] [address] [place], [address], 12/18/2023 08:29:02 HIV (1+2) Ab screen, serum [address] [facility] (Registration ), [address] [place] [address] [place], [address], 12/18/2023 08:29:02 RPR (rapid plasma reagin), serum [address] [facility] (Registration ), [address] [place] [address] [place], [address], 12/18/2023 08:29:02 CMP, serum or plasma 2023 024 NUNO [facility] (Registration ), [address] [place] [address] [place], [address], 12/11/2023 17:36:51 magnesium , serum or plasma [address] [facility] (Registration ), [address] [place] [address] [place], [address], 12/18/2023 08:29:02 HbA1c (hemoglob in A1c), blood [address] [facility] (Registration ), [address] [place] [address] [place], [address], 12/18/2023 08:29:02 CBC w/ auto diff - 1 SST, 1 LAV 2023 024 [email or web address] [facility] (Registration ), [address] [place] [address] [place], [address], 01/28/2024 21:28:19 CMP, serum or plasma 2023 024 [facility] (Registration ), [address] [place] [address] [place], [address], 01/28/2024 21:28:19 TSH + free T4, serum 2023 024 [facility] (Registration ), [address] [place] [address] [place], [address], 02/04/2024 10:03:18 lipid panel, serum 2023 024 [email or web address] [facility] (Lab Direct), [address] [place] [address] [place], [address], 05/25/2024 11:29:30 culture, urine + sensitivi ty 2023 024 [facility] (Registration ), [address] [place] [address] [place], [address], 05/17/2024 08:14:58 microscop ic method, urine 2023 024 [facility] (Registration ), [address] [place] [address] [place], [address], 05/15/2024 08:48:21 urinalysi s, dipstick 2023 024 [email or web address] [facility], [address], [address], [place], [address], 05/14/2024 20:40:44 CBC w/ auto diff 2023 024 [facility] (Registration ), [address] [place] [address] [place], [address], 07/09/2024 16:14:29 BMP, serum or plasma 2023 024 [facility] (Registration ), [address] [place] [address] [place], [address], 07/16/2024 04:23:39 magnesium , serum or plasma 2023 024 [facility] (Registration ), [address] [place], [address], 07/16/2024 04:23:39 Referral None recorded. Procedures None recorded. Surgeries None recorded. Imaging MRI, brain, w/o contrast - No PA RequirdPt , 73-F, with undiagnos ed short term memory loss for MRI imaging to assess intracran ial pathology possibly related to this including microvasc ular disease, mass or lesion. Her most recent GFR 11/05/2023 at [facility] ED was 37, BUN 2023 024 [facility], [address], [place], [address], 01/19/2024 14:23:08 MR, angiogram , head + neck, w/wo contrast - Pt. with incidenta l finding of lacunar infarct on 01/19/2024 MRI of head ordered for cognitive decline, but no acute symptoms change in last 4-months per caregiver report that correlate with stroke symptoms. 2023 024 [email or web address] [facility], [address], [place], [address], 02/02/2024 08:16:45 US, echocardi ogram - Pt. with 01/19/2024 incidenta l finding of lacunar infarct on Brain MRI. Pt.withou t known A-fib, but does have extensive smoking history. 2023 024 [email or web address] [facility], [address], [place], [address], 03/09/2024 14:42:08 CT, chest, w/o contrast - [...] 2023 024 [email or web address] [facility], [address], [place], [address], 03/10/2024 10:39:10 Medication Orders atorvasta tin 20 mg tablet 2023 024 [email or web address] #89013, [address] [place] [address], [id number], 07/01/2024 11:33:22 aspirin 81 mg tablet,de layed release 2023 024 [email or web address] [facility] #02629, [address] [place] [address], [id number], 07/09/2024 08:07:42 metoprolo l tartrate 25 mg tablet 2023 024 [facility] #23622, [address] [place] [address], [id number], 12/11/2023 12:17:59 sertralin e 25 mg tablet 2023 024 [facility] #09271, [address] [place] [address], [id number], 12/11/2023 12:17:32 Ventolin HFA 90 mcg/actua tion aerosol inhaler 2023 024 [facility] #70187, [address] [place] [address], [id number], 01/28/2024 18:04:41 cefuroxim e axetil 250 mg tablet 2023 024 [email or web address] [address] [facility], [address] [place], [address], 07/01/2024 11:35:09 cefuroxim e axetil 250 mg tablet 2023 [email or web address] Not available 07/01/2024 11:35:09 psyllium husk 0.4 gram capsule 2023 [facility] #38632, [address] [place], [place], [id number], 07/09/2024 11:47:17 trazodone 50 mg tablet 2023 [facility] #66446, [address] [place], [place], [id number], 07/09/2024 11:47:17 Patient TargetsNo targets recorded. Patient Instructions Encounter Date Encounter Id Patient Instructions Last Modified By Organization Details Last Modified Time 05/14/2024 [id number] 1. I am concerne d that her symptoms may be related to a urinary tract infection thus I have gone ahead and given her her first tablet of antibiotic tonight and the remaining doses were sent to the [facility] in [place]. She will take this medication morning and [...] results. [email or web address] Not available 05/14/2024 20:58:45 07/09/2024 [id number] Keep the environment dark during the night [...] does not resolve. - Trial of Trazodone [email or web address] Not available 07/09/2024 10:05:30 Reason for Referral [facility] the home following d/c from [facility] for Right intraparenchymal CVA Referring Physician: Maximo Lainez, Family Medicine, Encounter Date: 07/05/2024 Sales Account Associate Referral for M hcristyical social staff worker involved NUCLEAR SUPERVISING OPERATOR requested to assist patient and caregiver in transition home following CVA. Referring Physician: Maximo Lainez, Family Medicine, Encounter Date: 07/05/2024 Results Created [...] pleme nt 1):S1 3-s28 . Not Available [address] [place], [address] 12/11/2023 17:10:46 12/11/19 24 12/11/2023 COMPR EHENS JR METAB OLIC PANEL calcium 9.5 mg/dL 8.5-10 .1 normal Not Available [address] [place], [address] 12/11/2023 17:36:51 12/11/19 24 12/11/2023 COMPR EHENS JR METAB OLIC PANEL glucose 131 mg/dL 74-106 high Not Available Marilin oliver [address] [place], [address] 12/11/2023 17:36:51 12/11/19 24 12/11/2023 COMPR EHENS JR METAB OLIC PANEL BUN 32 mg/dL 7-18 high Not Available Marilin oliver [address] [place], [address] 12/11/2023 17:36:51 12/11/19 24 12/11/2023 COMPR EHENS JR METAB OLIC PANEL creatinine 1.6 mg/dL 0.55-1 .02 high Not Available [address] [place], [address] 12/11/2023 17:36:51 12/11/19 24 12/11/2023 COMPR EHENS [...] young er-ag ed adult s. Not Available [address] [place], [address] 12/11/2023 17:36:51 12/11/19 24 12/11/2023 COMPR EHENS JR METAB OLIC PANEL total protein 7.3 g/dL 6.4-8. 2 normal Not Available [address] [place], [address] 12/11/2023 17:36:51 12/11/19 24 12/11/2023 COMPR EHENS JR METAB OLIC PANEL albumin 4.1 g/dL 3.4-5. 0 normal Not Available [address] [place], [address] 12/11/2023 17:36:51 12/11/19 24 12/11/2023 COMPR EHENS JR METAB OLIC PANEL bilirubin, total 0.2 mg/dL 0.2-1. 0 normal Not Available [address] [place], [address] 12/11/2023 17:36:51 12/11/19 24 12/11/2023 COMPR EHENS JR METAB OLIC PANEL alk phos 94 U/L 46-116 normal Not Available [address] [place], [address] 12/11/2023 17:36:51 12/11/19 24 12/11/2023 COMPR EHENS JR METAB OLIC PANEL sodium 145 mmol/ L 136-14 5 normal Not Available [address] [place], [address] 12/11/2023 17:36:51 12/11/19 24 12/11/2023 COMPR EHENS JR METAB OLIC PANEL potassium 3.7 mmol/ L 3.5-5. 1 normal Not Available [address] [place], [address] 12/11/2023 17:36:51 12/11/19 24 12/11/2023 COMPR EHENS JR METAB OLIC PANEL chloride 109 mmol/ L 98-107 high Not Available [address] [place], [address] 12/11/2023 17:36:51 12/11/19 24 12/11/2023 COMPR EHENS JR METAB OLIC PANEL CO2 21.6 mmol/ L 21.0-3 2.0 normal Not Available [address] [place], [address] 12/11/2023 17:36:51 12/11/19 24 12/11/2023 COMPR EHENS JR METAB OLIC PANEL anion gap 14.4 mmol/ L 3-11 high Not Available [address] [place], [address] 12/11/2023 17:36:51 12/11/19 24 12/11/2023 COMPR EHENS JR METAB OLIC PANEL AST 12 U/L 15-37 low Not Available Marilin oliver [address] [place], [address] 12/11/2023 17:36:51 12/11/19 24 12/11/2023 COMPR EHENS JR METAB OLIC PANEL ALT 15 U/L 14-59 normal Not Available Marilin oliver [address] [place], [address] 12/11/2023 17:36:51 12/11/19 24 12/11/2023 LIPID 2 cholesterol 175 mg/dL <200 Not Available Yamil marrero [address] [place], [address] 12/11/2023 17:36:51 12/11/19 24 12/11/2023 LIPID 2 triglyceride 235 mg/dL <150 high Not Available [address] [place], [address] 12/11/2023 17:36:51 12/11/1912/11/2023 LIPID 2 HDL cholesterol 43 mg/dL 40-60 Not Available Kristi bondelida [address] [place], [address] 12/11/2023 17:36:51 12/11/1912/11/2023 LIPID 2 calculated LDL 85 mg/dL <100 [...] 18 years or older . Not Available [address] [place], [address] 12/11/2023 17:36:51 12/11/1912/11/2023 MAGNE SIUM magnesium 1.9 mg/dL 1.8-2. 4 normal Not Available [address] [place], [address] 12/11/2023 17:36:52 12/11/1912/11/2023 TSH TSH 1.35 uIU/m L 0.36-3 .74 normal Not Available [address] [place], [address] 12/11/2023 17:36:52 12/11/19 24 12/11/2023 VITAM IN B12 vitamin B12 214 pg/mL 193-98 6 normal Not Available [address] [place], [address] 12/11/2023 17:36:52 12/11/19 24 12/11/2023 FOLAT E folate 7.1 NG/mL 8.6-20 .0 low Not Available [address] [place], [address] 12/11/2023 17:36:53 12/11/19 24 12/12/2023 HIV-1 /2 AG AB SCREE N HIV-1/2 Ag Ab screen Negati ve negati ve If acute HIV-1 infec tion is suspe cted in a high risk patie nt, submi t plasm a speci men for HIV-1 RNA quant itati on test. Fourt h Gener ation assay perfo rmed on the [facility] ur XPT. Test perfo rmed or refer red by [facility] [address] [place] [address] Not Available [address] [place], [address] 12/12/2023 12:53:07 12/11/19 24 12/12/2023 SYPHI LIS SEROL OGY (RPR) syphilis serology (RPR) Negati ve negati ve Test perfo rmed or refer red by [facility] [address] [place] [address] Not Available [address] [place], [address] 12/12/2023 12:53:08 01/28/20 24 01/28/2024 COMPL ETE BLOOD COUNT W/DIF F WBC 8.22 10_3/ uL 4.4-10 .8 normal Not Available [address] [place], [address] 01/28/2024 19:08:00 01/28/20 24 01/28/2024 COMPL ETE BLOOD COUNT W/DIF F RBC 4.10 10_6/ uL 3.93-5 .22 normal Not Available [address] [place], [address] 01/28/2024 19:08:00 01/28/20 24 01/28/2024 COMPL ETE BLOOD COUNT W/DIF F HGB 12.6 g/dL 11.2-1 5.7 normal Not Available [address] [place], [address] 01/28/2024 19:08:00 01/28/20 24 01/28/2024 COMPL ETE BLOOD COUNT W/DIF F HCT 36.2 % 36.0-4 6.0 normal Not Available [address] [place], [address] 01/28/2024 19:08:00 01/28/20 24 01/28/2024 COMPL ETE BLOOD COUNT W/DIF F MCV 88 fL 80-95 normal Not Available [address] [place], [address] 01/28/2024 19:08:00 01/28/20 24 01/28/2024 COMPL ETE BLOOD COUNT W/DIF F MCH 30.7 pg 27.0-3 3.0 normal Not Available [address] [place], [address] 01/28/2024 19:08:00 01/28/20 24 01/28/2024 COMPL ETE BLOOD COUNT W/DIF F MCHC 34.8 % 32.0-3 6.0 normal Not Available [address] [place], [address] 01/28/2024 19:08:00 01/28/20 24 01/28/2024 COMPL ETE BLOOD COUNT W/DIF F RDW 12.6 % 11.7-1 4.6 normal Not Available [address] [place], [address] 01/28/2024 19:08:00 01/28/20 24 01/28/2024 COMPL ETE BLOOD COUNT W/DIF F platelet count 241 10_3/ uL 130-40 0 normal Not Available [address] [place], [address] 01/28/2024 19:08:00 01/28/20 24 01/28/2024 COMPL ETE BLOOD COUNT W/DIF F MPV 11.8 fL 8.0-11 .0 high Not Available [address] [place], [address] 01/28/2024 19:08:00 01/28/20 24 01/28/2024 COMPL ETE BLOOD COUNT W/DIF F neutrophils % 54.7 % Not Available [address] [place], [address] 01/28/2024 19:08:00 01/28/20 24 01/28/2024 COMPL ETE BLOOD COUNT W/DIF F lymphocytes % 35.4 % Not Available [address] [place], [address] 01/28/2024 19:08:00 01/28/20 24 01/28/2024 COMPL ETE BLOOD COUNT W/DIF F monocytes % 6.9 % Not Available [address] [place], [address] 01/28/2024 19:08:00 01/28/20 24 01/28/2024 COMPL ETE BLOOD COUNT W/DIF F eosinophils % 2.2 % Not Available [address] [place], [address] 01/28/2024 19:08:00 01/28/20 24 01/28/2024 COMPL ETE BLOOD COUNT W/DIF F basophils % 0.6 % Not Available [address] [place], [address] 01/28/2024 19:08:00 01/28/20 24 01/28/2024 COMPL ETE BLOOD COUNT W/DIF F immature grans % 0.2 % Not Available [address] [place], [address] 01/28/2024 19:08:00 01/28/20 24 01/28/2024 COMPL ETE BLOOD COUNT W/DIF F nucleated RBC 0.0 % 0.0-0. 3 normal Not Available [address] [place], [address] 01/28/2024 19:08:00 01/28/20 24 01/28/2024 COMPL ETE BLOOD COUNT W/DIF F absolute neutrophil count 4.49 10_3/ uL 1.2-6. 7 normal Not Available [address] [place], [address] 01/28/2024 19:08:00 01/28/20 24 01/28/2024 COMPL ETE BLOOD COUNT W/DIF F absolute lymphocyte count 2.91 10_3/ uL 1.2-3. 4 normal Not Available [address] [place], [address] 01/28/2024 19:08:00 01/28/20 24 01/28/2024 COMPL ETE BLOOD COUNT W/DIF F absolute monocyte count 0.57 10_3/ uL 0.1-0. 8 normal Not Available [address] [place], [address] 01/28/2024 19:08:00 01/28/20 24 01/28/2024 COMPL ETE BLOOD COUNT W/DIF F absolute eosinophil count 0.18 10_3/ uL 0.0-0. 7 normal Not Available [address] [place], [address] 01/28/2024 19:08:00 01/28/20 24 01/28/2024 COMPL ETE BLOOD COUNT W/DIF F absolute basophil count 0.05 10_3/ uL 0.0-0. 2 normal Not Available [address] [place], [address] 01/28/2024 19:08:00 01/28/20 24 01/28/2024 COMPR EHENS JR METAB OLIC PANEL calcium 9.6 mg/dL 8.5-10 .1 normal Not Available [address] [place], [address] 01/28/2024 20:28:19 01/28/20 24 01/28/2024 COMPR EHENS JR METAB OLIC PANEL glucose 148 mg/dL 74-106 high Not Available Marilin oliver [address] [place], [address] 01/28/2024 20:28:19 01/28/20 24 01/28/2024 COMPR EHENS JR METAB OLIC PANEL BUN 25 mg/dL 7-18 high Not Available Marilin oliver [address] [place], [address] 01/28/2024 20:28:19 01/28/20 24 01/28/2024 COMPR EHENS JR METAB OLIC PANEL creatinine 1.6 mg/dL 0.55-1 .02 high Not Available [address] [place], [address] 01/28/2024 20:28:19 01/28/20 24 01/28/2024 COMPR EHENS [...] young er-ag ed adult s. Not Available [address] [place], [address] 01/28/2024 20:28:19 01/28/20 24 01/28/2024 COMPR EHENS JR METAB OLIC PANEL total protein 7.3 g/dL 6.4-8. 2 normal Not Available [address] [place], [address] 01/28/2024 20:28:19 01/28/20 24 01/28/2024 COMPR EHENS JR METAB OLIC PANEL albumin 4.1 g/dL 3.4-5. 0 normal Not Available [address] [place], [address] 01/28/2024 20:28:19 01/28/20 24 01/28/2024 COMPR EHENS JR METAB OLIC PANEL bilirubin, total 0.3 mg/dL 0.2-1. 0 normal Not Available [address] [place], [address] 01/28/2024 20:28:19 01/28/20 24 01/28/2024 COMPR EHENS JR METAB OLIC PANEL alk phos 108 U/L 46-116 normal Not Available [address] [place], [address] 01/28/2024 20:28:19 01/28/20 24 01/28/2024 COMPR EHENS JR METAB OLIC PANEL sodium 142 mmol/ L 136-14 5 normal Not Available [address] [place], [address] 01/28/2024 20:28:19 01/28/20 24 01/28/2024 COMPR EHENS JR METAB OLIC PANEL potassium 3.9 mmol/ L 3.5-5. 1 normal Not Available [address] [place], [address] 01/28/2024 20:28:19 01/28/20 24 01/28/2024 COMPR EHENS JR METAB OLIC PANEL chloride 105 mmol/ L 98-107 normal Not Available [address] [place], [address] 01/28/2024 20:28:19 01/28/20 24 01/28/2024 COMPR EHENS JR METAB OLIC PANEL CO2 21.6 mmol/ L 21.0-3 2.0 normal Not Available [address] [place], [address] 01/28/2024 20:28:19 01/28/20 24 01/28/2024 COMPR EHENS JR METAB OLIC PANEL anion gap 15.4 mmol/ L 3-11 high Not Available [address] [place], [address] 01/28/2024 20:28:19 01/28/20 24 01/28/2024 COMPR EHENS JR METAB OLIC PANEL AST 14 U/L 15-37 low Not Available Marilin oliver [address] [place], [address] 01/28/2024 20:28:19 01/28/20 24 01/28/2024 COMPR EHENS JR METAB OLIC PANEL ALT 18 U/L 14-59 normal Not Available Marilin oliver [address] [place], [address] 01/28/2024 20:28:19 01/28/20 24 01/28/2024 TSH TSH 1.23 uIU/m L 0.36-3 .74 normal Not Available [address] [place], [address] 01/28/2024 20:28:20 01/28/20 24 01/28/2024 FREE T4 free T4 0.93 NG/dL 0.76-1 .46 normal Not Available [address] [place], [address] 01/28/2024 20:28:20 05/14/20 24 05/14/2024 MICRO SCOPI C FINDI NGS WBC 10-20 hpf 0-5 abnormal Not Available [facility] (Registration ) [address] [place] [address] [place], [address], 05/14/2024 21:28:28 05/14/20 24 05/14/2024 MICRO SCOPI C FINDI NGS RBC 3-5 hpf 0-2 abnormal Not Available [facility] (Registration ) [address] [place] [address] [place], [address], 05/14/2024 21:28:28 05/14/20 24 05/14/2024 MICRO SCOPI C FINDI NGS epithelial cells Modera te hpf negati ve Not Available [facility] (Registration ) [address] [place] [address] [place], [address], 05/14/2024 21:28:28 05/14/20 24 05/14/2024 MICRO SCOPI C FINDI NGS bacteria Modera te hpf negati ve Not Available [facility] (Registration ) [address] [place] [address] [place], [address], 05/14/2024 21:28:28 05/14/20 24 05/14/2024 MICRO SCOPI C FINDI NGS crystals Negati ve hpf negati ve Not Available [facility] (Registration ) [address] [place] [address] [place], [address], 05/14/2024 21:28:28 05/14/20 24 05/14/2024 MICRO SCOPI C FINDI NGS mucus Negati ve negati ve Not Available [facility] (Registration ) [address] [place] [address] [place], [address], 05/14/2024 21:28:28 05/14/20 24 05/14/2024 MICRO SCOPI C FINDI NGS casts Negati ve lpf negati ve Not Available [facility] (Registration ) [address] [place] [address] [place], [address], 05/14/2024 21:28:28 05/14/20 24 05/14/2024 MICRO SCOPI C FINDI NGS C S indicated? C S Done As Ordere d Not Available [facility] (Registration ) [address] [place] [address] [place], [address], 05/14/2024 21:28:28 05/14/20 24 05/16/2024 URINE CULTU RE urine culture Urine Cultu re Proba ble conta minat ed colle ction APPEA DEBBIE Mixed Gram Posit jr Haylee COLON Y COUNT Not Available [facility] (Registration ) [address] [place] [address] [place], [address], 05/16/2024 10:35:04 05/14/20 24 05/16/2024 URINE CULTU RE urine culture colon ies/m L 50,00 0 - 100,0 00 Day 1 Resul t ISOLA RAISA BELOW O:GPF M (ORGA NISM ID: 1.1) - GRAM POSIT JR HAYLEE ,MIXE D Urine Cultu re (ORGA NISM ID: 1.1) - COLON Y COUNT (ORGA NISM ID: 1.1) - 50,00 0 - 100,0 00 Not Available [facility] (Registration ) [address] [place] [address] [place], [address], 05/16/2024 10:35:04 05/14/20 24 05/17/2024 URINE CULTU RE urine culture Urine Cultu re Proba ble conta minat ed colle ction APPEA DEBBIE Mixed Gram Posit jr Haylee APPEA DEBBIE Mixed Gram Posit jr Haylee COLON Y COUNT Not Available [facility] (Registration ) [address] [place] [address] [place], [address], 05/17/2024 10:00:22 05/14/20 24 05/17/2024 URINE CULTU [...] ID: 1.1) - >100, 000 Not Available [facility] (Registration ) [address] [place] [address] [place], [address], 05/17/2024 10:00:22 05/14/20 24 05/14/2024 urina lysis , dipst ick Leukocytes Trace Not Available [address], [place], [address], 05/14/2024 20:24:45 05/14/20 24 05/14/2024 urina lysis , dipst ick Nitrite negati ve Not Available [address], [place], [address], 05/14/2024 20:24:45 05/14/20 24 05/14/2024 urina lysis , dipst ick Urobilinogen .2 Not Available [address], [place], [address], 05/14/2024 20:24:45 05/14/20 24 05/14/2024 urina lysis , dipst ick Protein 100 Not Available [address] [address], [place], [address], 05/14/2024 20:24:45 05/14/20 24 05/14/2024 urina lysis , dipst ick pH 5.0 Not Available [address], [place], [address], 05/14/2024 20:24:45 05/14/20 24 05/14/2024 urina lysis , dipst ick Blood Negati ve Not Available [address], [place], [address], 05/14/2024 20:24:45 05/14/20 24 05/14/2024 urina lysis , dipst ick Specific [place] 1.015 Not Available [address], [place], [address], 05/14/2024 20:24:45 05/14/20 24 05/14/2024 urina lysis , dipst ick Ketone Trace Not Available [address], [place], [address], 05/14/2024 20:24:45 05/14/20 24 05/14/2024 urina lysis , dipst ick Bilirubin Small Not Available [address], [place], [address], 05/14/2024 20:24:45 05/14/20 24 05/14/2024 urina lysis , dipst ick Glucose Negati ve Not Available [address], [place], [address], 05/14/2024 20:24:45 05/14/20 24 05/14/2024 urina lysis , dipst ick Appearance Clear Not Available [address], [place], [address], 05/14/2024 20:24:45 05/14/20 24 05/14/2024 urina lysis , dipst ick Color Dark Yellow Not Available [address], [place], [address], 05/14/2024 20:24:45 06/12/20 24 06/12/2024 URINE DRUG SCREE N ([facility] ) methadone Negati ve negati ve Not Available [address] [place], [address] 06/12/2024 20:21:43 06/12/20 24 06/12/2024 URINE DRUG SCREE N ([facility] ) benzodiazepi sharad Negati ve negati ve Benzo diaze pines are exten sivel y metab olize d and the paren t compo und may not be detec liz in urine . If clini shea suspi cion is high, pleas e notif y Lab for send- out testi ng. Not Available [address] [place], [address] 06/12/2024 20:21:43 06/12/20 24 06/12/2024 URINE DRUG SCREE N ([facility] ) cocaine Negati ve negati ve Not Available [address] [place], [address] 06/12/2024 20:21:43 06/12/20 24 06/12/2024 URINE DRUG SCREE N ([facility] ) amphetamines Negati ve negati ve Not Available [address] [place], [address] 06/12/2024 20:21:43 06/12/20 24 06/12/2024 URINE DRUG SCREE N ([facility] ) tetrahydroca nnabinol Negati ve negati ve Not Available [address] [place], [address] 06/12/2024 20:21:43 06/12/20 24 06/12/2024 URINE DRUG SCREE N ([facility] ) opiates Negati ve negati ve Not Available [address] [place], [address] 06/12/2024 20:21:43 06/12/20 24 06/12/2024 URINE DRUG SCREE N ([facility] ) barbiturates Negati ve negati ve Not Available [address] [place], [address] 06/12/2024 20:21:43 06/12/20 24 06/12/2024 URINE DRUG [...] tion of these resul ts. Not Available [address] [place], [address] 06/12/2024 20:21:43 06/12/20 24 06/12/2024 MICRO SCOPI C FINDI NGS WBC Negati ve hpf 0-5 Not Available Tiffani [address] [place], [address] 06/12/2024 20:10:41 06/12/20 24 06/12/2024 MICRO SCOPI C FINDI NGS RBC Negati ve hpf 0-2 Not Available [address] [place], [address] 06/12/2024 20:10:41 06/12/20 24 06/12/2024 MICRO SCOPI C FINDI NGS epithelial cells Rare hpf negati ve Not Available [address] [place], [address] 06/12/2024 20:10:41 06/12/20 24 06/12/2024 MICRO SCOPI C FINDI NGS bacteria Rare hpf negati ve Not Available [address] [place], [address] 06/12/2024 20:10:41 06/12/20 24 06/12/2024 MICRO SCOPI C FINDI NGS crystals Negati ve hpf negati ve Not Available [address] [place], [address] 06/12/2024 20:10:41 06/12/20 24 06/12/2024 MICRO SCOPI C FINDI NGS mucus Negati ve negati ve Not Available [address] [place], [address] 06/12/2024 20:10:41 06/12/20 24 06/12/2024 MICRO SCOPI C FINDI NGS casts Negati ve lpf negati ve Not Available [address] [place], [address] 06/12/2024 20:10:41 06/12/20 24 06/12/2024 MICRO SCOPI C FINDI NGS C S indicated? No Not Available [address] [place], [address] 06/12/2024 20:10:41 06/12/20 24 06/12/2024 URINA LYSIS color Yellow yellow Not Available Marilin oliver [address] [place], [address] 06/12/2024 20:10:40 06/12/20 24 06/12/2024 URINA LYSIS clarity Clear clear Not Available Marilin oliver [address] [place], [address] 06/12/2024 20:10:40 06/12/20 24 06/12/2024 URINA LYSIS specific gravity 1.025 1.005- 1.025 normal Not Available [address] [place], [address] 06/12/2024 20:10:40 06/12/20 24 06/12/2024 URINA LYSIS pH 5.5 5-8 normal Not Available Marilin oliver [address] [place], [address] 06/12/2024 20:10:40 06/12/20 24 06/12/2024 URINA LYSIS leukocyte esterase Negati ve negati ve Not Available [address] [place], [address] 06/12/2024 20:10:40 06/12/20 24 06/12/2024 URINA LYSIS nitrite Negati ve negati ve Not Available [address] [place], [address] 06/12/2024 20:10:40 06/12/20 24 06/12/2024 URINA LYSIS protein 30 mg/dL neg-tr erendira abnormal Not Available [address] [place], [address] 06/12/2024 20:10:40 06/12/20 24 06/12/2024 URINA LYSIS glucose Negati ve mg/dL negati ve Not Available [address] [place], [address] 06/12/2024 20:10:40 06/12/20 24 06/12/2024 URINA LYSIS ketones Negati ve mg/dL negati ve Not Available [address] [place], [address] 06/12/2024 20:10:40 06/12/20 24 06/12/2024 URINA LYSIS urobilinogen 0.2 mg/dL up to 0.2 Not Available [address] [place], [address] 06/12/2024 20:10:40 06/12/20 24 06/12/2024 URINA LYSIS bilirubin Negati ve negati ve Not Available [address] [place], [address] 06/12/2024 20:10:40 06/12/20 24 06/12/2024 URINA LYSIS blood Negati ve negati ve Not Available [address] [place], [address] 06/12/2024 20:10:40 06/12/20 24 06/12/2024 URINA LYSIS color Yellow yellow Not Available Marilin oliver [address] [place], [address] 06/12/2024 20:04:40 06/12/20 24 06/12/2024 URINA LYSIS clarity Clear clear Not Available Marilin oliver [address] [place], [address] 06/12/2024 20:04:40 06/12/20 24 06/12/2024 URINA LYSIS specific gravity 1.025 1.005- 1.025 normal Not Available [address] [place], [address] 06/12/2024 20:04:40 06/12/20 24 06/12/2024 URINA LYSIS pH 5.5 5-8 normal Not Available Marilin oliver [address] [place], [address] 06/12/2024 20:04:40 06/12/20 24 06/12/2024 URINA LYSIS leukocyte esterase Negati ve negati ve Not Available [address] [place], [address] 06/12/2024 20:04:40 06/12/20 24 06/12/2024 URINA LYSIS nitrite Negati ve negati ve Not Available [address] [place], [address] 06/12/2024 20:04:40 06/12/20 24 06/12/2024 URINA LYSIS protein 30 mg/dL neg-tr erendira abnormal Not Available [address] [place], [address] 06/12/2024 20:04:40 06/12/20 24 06/12/2024 URINA LYSIS glucose Negati ve mg/dL negati ve Not Available [address] [place], [address] 06/12/2024 20:04:40 06/12/20 24 06/12/2024 URINA LYSIS ketones Negati ve mg/dL negati ve Not Available [address] [place], [address] 06/12/2024 20:04:40 06/12/20 24 06/12/2024 URINA LYSIS urobilinogen 0.2 mg/dL up to 0.2 Not Available [address] [place], [address] 06/12/2024 20:04:40 06/12/20 24 06/12/2024 URINA LYSIS bilirubin Negati ve negati ve Not Available [address] [place], [address] 06/12/2024 20:04:40 06/12/20 24 06/12/2024 URINA LYSIS blood Negati ve negati ve Not Available [address] [place], [address] 06/12/2024 20:04:40 06/12/20 24 06/12/2024 ACETA MINOP HEN acetaminophe n < 2 ug/mL 10-30 Not Available Yamil marrero [address] [place], [address] 06/12/2024 18:20:32 06/12/20 24 06/12/2024 LIPAS E lipase 71 U/L 16-77 normal Not Available Marilin oliver [address] [place], [address] 06/12/2024 18:55:40 06/12/20 24 06/12/2024 TSH (W/RE F FT4) TSH (w/ref FT4) 1.49 uIU/m L 0.36-3 .74 normal Not Available [address] [place], [address] 06/12/2024 18:55:40 06/12/20 24 06/12/2024 MAGNE SIUM magnesium 2.0 mg/dL 1.8-2. 4 normal Not Available [address] [place], [address] 06/12/2024 18:55:39 06/12/20 24 06/12/2024 ETHYL ALCOH OL ethyl alcohol < 3.0 mg/dL <10 ETOH Refer ence Range = <10 mg/dL Legal Limit of Intox icati on is 80 mg/dL This test is inten ded only for Medic al purpo ses. Divid e resul t by 1000 to conve rt to %(w/v ) Not Available [address] [place], [address] 06/12/2024 18:55:39 06/12/20 24 06/12/2024 CREAT INE KINAS E creatine kinase 81 U/L 26-192 normal Not Available Yamil marrero [address] [place], [address] 06/12/2024 18:55:38 06/12/20 24 06/12/2024 COMPR EHENS JR METAB OLIC PANEL calcium 9.5 mg/dL 8.5-10 .1 normal Not Available [address] [place], [address] 06/12/2024 18:55:38 06/12/20 24 06/12/2024 COMPR EHENS JR METAB OLIC PANEL glucose 162 mg/dL 74-106 high Not Available Marilin oliver [address] [place], [address] 06/12/2024 18:55:38 06/12/20 24 06/12/2024 COMPR EHENS JR METAB OLIC PANEL BUN 37 mg/dL 7-18 high Not Available Marilin [address], [address] 06/12/2024 18:55:38 06/12/20 24 06/12/2024 COMPR EHENS JR METAB OLIC PANEL creatinine 1.7 mg/dL 0.55-1 .02 high Not Available [address] [place], [address] 06/12/2024 18:55:38 06/12/20 24 06/12/2024 COMPR EHENS [...] young er-ag ed adult s. Not Available [address] [place], [address] 06/12/2024 18:55:38 06/12/20 24 06/12/2024 COMPR EHENS JR METAB OLIC PANEL total protein 7.4 g/dL 6.4-8. 2 normal Not Available [address] [place], [address] 06/12/2024 18:55:38 06/12/20 24 06/12/2024 COMPR EHENS JR METAB OLIC PANEL albumin 3.9 g/dL 3.4-5. 0 normal Not Available [address] [place], [address] 06/12/2024 18:55:38 06/12/20 24 06/12/2024 COMPR EHENS JR METAB OLIC PANEL bilirubin, total 0.52 mg/dL 0.2-1. 0 normal Not Available [address] [place], [address] 06/12/2024 18:55:38 06/12/20 24 06/12/2024 COMPR EHENS JR METAB OLIC PANEL alk phos 101 U/L 46-116 normal Not Available [address] [place], [address] 06/12/2024 18:55:38 06/12/20 24 06/12/2024 COMPR EHENS JR METAB OLIC PANEL sodium 144 mmol/ L 136-14 5 normal Not Available [address] [place], [address] 06/12/2024 18:55:38 06/12/20 24 06/12/2024 COMPR EHENS JR METAB OLIC PANEL potassium 3.6 mmol/ L 3.5-5. 1 normal Not Available [address] [place], [address] 06/12/2024 18:55:38 06/12/20 24 06/12/2024 COMPR EHENS JR METAB OLIC PANEL chloride 108 mmol/ L 98-107 high Not Available [address] [place], [address] 06/12/2024 18:55:38 06/12/20 24 06/12/2024 COMPR EHENS JR METAB OLIC PANEL CO2 23.8 mmol/ L 21.0-3 2.0 normal Not Available [address] [place], [address] 06/12/2024 18:55:38 06/12/20 24 06/12/2024 COMPR EHENS JR METAB OLIC PANEL anion gap 12.2 mmol/ L 3-11 high Not Available [address] [place], [address] 06/12/2024 18:55:38 06/12/20 24 06/12/2024 COMPR EHENS JR METAB OLIC PANEL AST 15 U/L 15-37 normal Not Available Marilin oliver [address] [place], [address] 06/12/2024 18:55:38 06/12/20 24 06/12/2024 COMPR EHENS JR METAB OLIC PANEL ALT 15 U/L 14-59 normal Not Available Marilin oliver [address] [place], [address] 06/12/2024 18:55:38 06/12/20 24 06/12/2024 COVID /FLU/ RSV PCR source Nasoph arynx Not Available [address] [place], [address] 06/12/2024 18:35:33 06/12/20 24 06/12/2024 COVID /FLU/ [...] matio n. Testi ng perfo rmed at [facility] (CLIA #[id number]) on the CepInvenra id [id number] pert. Not Available [address] [place], [address] 06/12/2024 18:35:33 06/12/20 24 06/12/2024 COVID /FLU/ RSV PCR influenza A PCR Negati ve negati ve Not Available [address] [facility] [place], [address] 06/12/2024 18:35:33 06/12/20 24 06/12/2024 COVID /FLU/ RSV PCR influenza B PCR Negati ve negati ve Not Available [address] [facility] [place], [address] 06/12/2024 18:35:33 06/12/20 24 06/12/2024 COVID /FLU/ RSV PCR RSV PCR Negati ve negati ve Not Available [address] [place], [address] 06/12/2024 18:35:33 06/12/20 24 06/12/2024 PTT ACTIV ATED PTT activated 22.1 sec 23.6-3 2.8 low Hepar in Thera peuti c Range for PTT = 52-84 secon ds New Hepar in Thera peuti c Range 10/28 Not Available [address] [place], [address] 06/12/2024 18:13:30 06/12/20 24 06/12/2024 PROTH ROMBI N TIME prothrombin time 9.9 sec 9.1-11 .1 normal Not Available [address] [place], [address] 06/12/2024 18:13:30 06/12/20 24 06/12/2024 PROTH ROMBI N TIME INR 1.0 0.9-1. 1 normal Recom luis a d INR thera peuti c range s for orall y admin ister ed drugs are as follo ws: -Dustin dard Inten sity 2.0 to 3.0 -High er Inten sity 3.0 to 4.5 Not Available [address] [place], [address] 06/12/2024 18:13:30 06/12/20 24 06/12/2024 VALENCIA IA ammonia < 10 umol/ L 11-32 low Not Available [address] [place], [address] 06/12/2024 18:10:29 06/12/20 24 06/12/2024 COMPL ETE BLOOD COUNT W/DIF F WBC 7.41 10_3/ uL 4.4-10 .8 normal Not Available [address] [place], [address] 06/12/2024 18:08:30 06/12/20 24 06/12/2024 COMPL ETE BLOOD COUNT W/DIF F RBC 3.82 10_6/ uL 3.93-5 .22 low Not Available [address] [place], [address] 06/12/2024 18:08:30 06/12/20 24 06/12/2024 COMPL ETE BLOOD COUNT W/DIF F HGB 11.9 g/dL 11.2-1 5.7 normal Not Available [address] [place], [address] 06/12/2024 18:08:30 06/12/20 24 06/12/2024 COMPL ETE BLOOD COUNT W/DIF F HCT 34.8 % 36.0-4 6.0 low Not Available [address] [place], [address] 06/12/2024 18:08:30 06/12/20 24 06/12/2024 COMPL ETE BLOOD COUNT W/DIF F MCV 91 fL 80-95 normal Not Available Marilin oliver [address] [place], [address] 06/12/2024 18:08:30 06/12/20 24 06/12/2024 COMPL ETE BLOOD COUNT W/DIF F MCH 31.2 pg 27.0-3 3.0 normal Not Available [address] [place], [address] 06/12/2024 18:08:30 06/12/20 24 06/12/2024 COMPL ETE BLOOD COUNT W/DIF F MCHC 34.2 % 32.0-3 6.0 normal Not Available [address] [place], [address] 06/12/2024 18:08:30 06/12/20 24 06/12/2024 COMPL ETE BLOOD COUNT W/DIF F RDW 12.2 % 11.7-1 4.6 normal Not Available [address] [place], [address] 06/12/2024 18:08:30 06/12/20 24 06/12/2024 COMPL ETE BLOOD COUNT W/DIF F platelet count 211 10_3/ uL 130-40 0 normal Not Available [address] [place], [address] 06/12/2024 18:08:30 06/12/20 24 06/12/2024 COMPL ETE BLOOD COUNT W/DIF F MPV 10.8 fL 8.0-11 .0 normal Not Available [address] [place], [address] 06/12/2024 18:08:30 06/12/20 24 06/12/2024 COMPL ETE BLOOD COUNT W/DIF F neutrophils % 58.3 % Not Available [address] [place], [address] 06/12/2024 18:08:30 06/12/20 24 06/12/2024 COMPL ETE BLOOD COUNT W/DIF F lymphocytes % 33.3 % Not Available [address] [place], [address] 06/12/2024 18:08:30 06/12/20 24 06/12/2024 COMPL ETE BLOOD COUNT W/DIF F monocytes % 5.0 % Not Available [address] [place], [address] 06/12/2024 18:08:30 06/12/20 24 06/12/2024 COMPL ETE BLOOD COUNT W/DIF F eosinophils % 2.3 % Not Available [address] [place], [address] 06/12/2024 18:08:30 06/12/20 24 06/12/2024 COMPL ETE BLOOD COUNT W/DIF F basophils % 0.8 % Not Available [address] [place], [address] 06/12/2024 18:08:30 06/12/20 24 06/12/2024 COMPL ETE BLOOD COUNT W/DIF F immature grans % 0.3 % Not Available [address] [place], [address] 06/12/2024 18:08:30 06/12/20 24 06/12/2024 COMPL ETE BLOOD COUNT W/DIF F nucleated RBC 0.0 % 0.0-0. 3 normal Not Available [address] [place], [address] 06/12/2024 18:08:30 06/12/20 24 06/12/2024 COMPL ETE BLOOD COUNT W/DIF F absolute neutrophil count 4.32 10_3/ uL 1.2-6. 7 normal Not Available [address] [place], [address] 06/12/2024 18:08:30 06/12/20 24 06/12/2024 COMPL ETE BLOOD COUNT W/DIF F absolute lymphocyte count 2.47 10_3/ uL 1.2-3. 4 normal Not Available [address] [place], [address] 06/12/2024 18:08:30 06/12/20 24 06/12/2024 COMPL ETE BLOOD COUNT W/DIF F absolute monocyte count 0.37 10_3/ uL 0.1-0. 8 normal Not Available [address] [place], [address] 06/12/2024 18:08:30 06/12/20 24 06/12/2024 COMPL ETE BLOOD COUNT W/DIF F absolute eosinophil count 0.17 10_3/ uL 0.0-0. 7 normal Not Available [address] [place], [address] 06/12/2024 18:08:30 06/12/20 24 06/12/2024 COMPL ETE BLOOD COUNT W/DIF F absolute basophil count 0.06 10_3/ uL 0.0-0. 2 normal Not Available [address] [place], [address] 06/12/2024 18:08:30 06/12/20 24 06/12/2024 VENOU S BLOOD GAS pH (venous) 7.30 7.31-7 .41 low Not Available [address] [place], [address] 06/12/2024 17:56:28 06/12/20 24 06/12/2024 VENOU S BLOOD GAS pCO2 (venous) 45 mmHg 41-51 normal Not Available [address] [place], [address] 06/12/2024 17:56:28 06/12/20 24 06/12/2024 VENOU S BLOOD GAS pO2 (venous) 31 mmHg Not Available [address] [place], [address] 06/12/2024 17:56:28 06/12/20 24 06/12/2024 VENOU S BLOOD GAS TCO2 (venous) 21 mmol/ L 24-29 low Not Available [address] [place], [address] 06/12/2024 17:56:28 06/12/20 24 06/12/2024 VENOU S BLOOD GAS HCO3 (venous) 22 mmol/ L 23-28 low Not Available [address] [place], [address] 06/12/2024 17:56:28 06/12/20 24 06/12/2024 VENOU S BLOOD GAS BE (venous) -4 mmol/ L -2-3 low Not Available [address] [place], [address] 06/12/2024 17:56:28 06/12/20 24 06/12/2024 VENOU S BLOOD GAS O2 sat (venous) 57 % Not Available Yamil marrero [address] [place], [address] 06/12/2024 17:56:28 06/12/20 24 06/12/2024 TSH (W/RE F FT4) TSH (w/ref FT4) 1.49 uIU/m L 0.36-3 .74 normal Not Available [address] [place], [address] 06/12/2024 18:45:41 06/12/20 24 06/12/2024 MAGNE SIUM magnesium 2.0 mg/dL 1.8-2. 4 normal Not Available [address] [place], [address] 06/12/2024 18:45:41 06/12/20 24 06/12/2024 ETHYL ALCOH OL ethyl alcohol < 3.0 mg/dL <10 ETOH Refer ence Range = <10 mg/dL Legal Limit of Intox icati on is 80 mg/dL This test is inten ded only for Medic al purpo ses. Divid e resul t by 1000 to conve rt to %(w/v ) Not Available [address] [place], [address] 06/12/2024 18:45:40 06/12/20 24 06/12/2024 CREAT INE KINAS E creatine kinase 81 U/L 26-192 normal Not Available Yamil marrero [address] [place], [address] 06/12/2024 18:45:40 06/12/20 24 06/12/2024 COMPR EHENS JR METAB OLIC PANEL calcium 9.5 mg/dL 8.5-10 .1 normal Not Available [address] [place], [address] 06/12/2024 18:45:39 06/12/20 24 06/12/2024 COMPR EHENS JR METAB OLIC PANEL glucose 162 mg/dL 74-106 high Not Available Marilin oliver [address] [place], [address] 06/12/2024 18:45:39 06/12/20 24 06/12/2024 COMPR EHENS RJ METAB OLIC PANEL BUN 37 mg/dL 7-18 high Not Available Marilin oliver [address] [place], [address] 06/12/2024 18:45:39 06/12/20 24 06/12/2024 COMPR EHENS JR METAB OLIC PANEL creatinine 1.7 mg/dL 0.55-1 .02 high Not Available [address] [place], [address] 06/12/2024 18:45:39 06/12/20 24 06/12/2024 COMPR EHENS [...] young er-ag ed adult s. Not Available [address] [place], [address] 06/12/2024 18:45:39 06/12/20 24 06/12/2024 COMPR EHENS JR METAB OLIC PANEL total protein 7.4 g/dL 6.4-8. 2 normal Not Available [address] [place], [address] 06/12/2024 18:45:39 06/12/20 24 06/12/2024 COMPR EHENS JR METAB OLIC PANEL albumin 3.9 g/dL 3.4-5. 0 normal Not Available [address] [place], [address] 06/12/2024 18:45:39 06/12/20 24 06/12/2024 COMPR EHENS JR METAB OLIC PANEL bilirubin, total 0.52 mg/dL 0.2-1. 0 normal Not Available [address] [place], [address] 06/12/2024 18:45:39 06/12/20 24 06/12/2024 COMPR EHENS JR METAB OLIC PANEL alk phos 101 U/L 46-116 normal Not Available [address] [place], [address] 06/12/2024 18:45:39 06/12/20 24 06/12/2024 COMPR EHENS JR METAB OLIC PANEL sodium 144 mmol/ L 136-14 5 normal Not Available [address] [place], [address] 06/12/2024 18:45:39 06/12/20 24 06/12/2024 COMPR EHENS JR METAB OLIC PANEL potassium 3.6 mmol/ L 3.5-5. 1 normal Not Available [address] [place], [address] 06/12/2024 18:45:39 06/12/20 24 06/12/2024 COMPR EHENS JR METAB OLIC PANEL chloride 108 mmol/ L 98-107 high Not Available [address] [place], [address] 06/12/2024 18:45:39 06/12/20 24 06/12/2024 COMPR EHENS JR METAB OLIC PANEL CO2 23.8 mmol/ L 21.0-3 2.0 normal Not Available [address] [place], [address] 06/12/2024 18:45:39 06/12/20 24 06/12/2024 COMPR EHENS JR METAB OLIC PANEL anion gap 12.2 mmol/ L 3-11 high Not Available [address] [place], [address] 06/12/2024 18:45:39 06/12/20 24 06/12/2024 COMPR EHENS JR METAB OLIC PANEL AST 15 U/L 15-37 normal Not Available Marilin oliver [address] [place], [address] 06/12/2024 18:45:39 06/12/20 24 06/12/2024 COMPR EHENS JR METAB OLIC PANEL ALT 15 U/L 14-59 normal Not Available Marilin [address] [place], [address] 06/12/2024 18:45:39 06/12/20 24 06/12/2024 TSH (W/RE F FT4) TSH (w/ref FT4) 1.49 uIU/m L 0.36-3 .74 normal Not Available [address] [place], [address] 06/12/2024 18:45:36 06/12/20 24 06/12/2024 MAGNE SIUM magnesium 2.0 mg/dL 1.8-2. 4 normal Not Available [address] [place], [address] 06/12/2024 18:45:36 06/12/20 24 06/12/2024 ETHYL ALCOH OL ethyl alcohol < 3.0 mg/dL <10 ETOH Refer ence Range = <10 mg/dL Legal Limit of Intox icati on is 80 mg/dL This test is inten ded only for Medic al purpo ses. Divid e resul t by 1000 to conve rt to %(w/v ) Not Available [address] [place], [address] 06/12/2024 18:45:35 06/12/20 24 06/12/2024 CREAT INE KINAS E creatine kinase 81 U/L 26-192 normal Not Available Yamil marrero [address] [place], [address] 06/12/2024 18:45:35 06/12/20 24 06/12/2024 COMPR EHENS JR METAB OLIC PANEL calcium 9.5 mg/dL 8.5-10 .1 normal Not Available [address] [place], [address] 06/12/2024 18:45:34 06/12/20 24 06/12/2024 COMPR EHENS JR METAB OLIC PANEL glucose 162 mg/dL 74-106 high Not Available Marilin oliver [address] [place], [address] 06/12/2024 18:45:34 06/12/20 24 06/12/2024 COMPR EHENS JR METAB OLIC PANEL BUN 37 mg/dL 7-18 high Not Available Marilin oliver [address] [place], [address] 06/12/2024 18:45:34 06/12/20 24 06/12/2024 COMPR EHENS JR METAB OLIC PANEL creatinine 1.7 mg/dL 0.55-1 .02 high Not Available [address] [place], [address] 06/12/2024 18:45:34 06/12/20 24 06/12/2024 COMPR EHENS [...] young er-ag ed adult s. Not Available [address] [place], [address] 06/12/2024 18:45:34 06/12/20 24 06/12/2024 COMPR EHENS JR METAB OLIC PANEL total protein 7.4 g/dL 6.4-8. 2 normal Not Available [address] [place], [address] 06/12/2024 18:45:34 06/12/20 24 06/12/2024 COMPR EHENS JR METAB OLIC PANEL albumin 3.9 g/dL 3.4-5. 0 normal Not Available [address] [place], [address] 06/12/2024 18:45:34 06/12/20 24 06/12/2024 COMPR EHENS JR METAB OLIC PANEL bilirubin, total 0.52 mg/dL 0.2-1. 0 normal Not Available [address] [place], [address] 06/12/2024 18:45:34 06/12/20 24 06/12/2024 COMPR EHENS JR METAB OLIC PANEL alk phos 101 U/L 46-116 normal Not Available [address] [place], [address] 06/12/2024 18:45:34 06/12/20 24 06/12/2024 COMPR EHENS JR METAB OLIC PANEL sodium 144 mmol/ L 136-14 5 normal Not Available [address] [place], [address] 06/12/2024 18:45:34 06/12/20 24 06/12/2024 COMPR EHENS JR METAB OLIC PANEL potassium 3.6 mmol/ L 3.5-5. 1 normal Not Available [address] [place], [address] 06/12/2024 18:45:34 06/12/20 24 06/12/2024 COMPR EHENS JR METAB OLIC PANEL chloride 108 mmol/ L 98-107 high Not Available [address] [place], [address] 06/12/2024 18:45:34 06/12/20 24 06/12/2024 COMPR EHENS JR METAB OLIC PANEL CO2 23.8 mmol/ L 21.0-3 2.0 normal Not Available [address] [place], [id number] 06/12/2024 18:45:34 06/12/20 24 06/12/2024 COMPR EHENS JR METAB OLIC PANEL anion gap 12.2 mmol/ L 3-11 high Not Available [address] [place], [address] 06/12/2024 18:45:34 06/12/20 24 06/12/2024 COMPR EHENS JR METAB OLIC PANEL AST 15 U/L 15-37 normal Not Available Marilin [address], [address] 06/12/2024 18:45:34 06/12/20 24 06/12/2024 COMPR EHENS JR METAB OLIC PANEL ALT 15 U/L 14-59 normal Not Available [address] [place], [address] 06/12/2024 18:45:34 06/12/20 24 06/12/2024 CREAT INE KINAS E creatine kinase 81 U/L 26-192 normal Not Available [address] [place], [address] 06/12/2024 18:21:32 06/12/20 24 06/12/2024 COMPR EHENS JR METAB OLIC PANEL total protein 7.4 g/dL 6.4-8. 2 normal Not Available [address] [place], [address] 06/12/2024 18:21:31 06/12/20 24 06/12/2024 COMPR EHENS JR METAB OLIC PANEL bilirubin, total 0.52 mg/dL 0.2-1. 0 normal Not Available [address] [place], [address] 06/12/2024 18:21:31 06/12/20 24 06/12/2024 COMPR EHENS JR METAB OLIC PANEL sodium 144 mmol/ L 136-14 5 normal Not Available [address] [place], [address] 06/12/2024 18:21:31 06/12/20 24 06/12/2024 COMPR EHENS JR METAB OLIC PANEL potassium 3.6 mmol/ L 3.5-5. 1 normal Not Available [address] [place], [address] 06/12/2024 18:21:31 06/12/20 24 06/12/2024 COMPR EHENS JR METAB OLIC PANEL chloride 108 mmol/ L 98-107 high Not Available [address] [place], [address] 06/12/2024 18:21:31 06/12/20 24 06/12/2024 COMPR EHENS JR METAB OLIC PANEL CO2 23.8 mmol/ L 21.0-3 2.0 normal Not Available [address] [place], [address] 06/12/2024 18:21:31 06/12/20 24 06/12/2024 COMPR EHENS JR METAB OLIC PANEL anion gap 12.2 mmol/ L 3-11 high Not Available [address] [place], [address] 06/12/2024 18:21:31 06/13/20 24 06/13/2024 MAGNE SIUM magnesium 1.8 mg/dL 1.8-2. 4 normal Not Available [address] [place], [address] 06/13/2024 07:03:39 06/13/20 24 06/13/2024 COMPR EHENS JR METAB OLIC PANEL calcium 9.0 mg/dL 8.5-10 .1 normal Not Available [address] [place], [address] 06/13/2024 07:03:38 06/13/20 24 06/13/2024 COMPR EHENS JR METAB OLIC PANEL glucose 104 mg/dL 74-106 normal Not Available Marilin oliver [address] [place], [address] 06/13/2024 07:03:38 06/13/20 24 06/13/2024 COMPR EHENS JR METAB OLIC PANEL BUN 34 mg/dL 7-18 high Not Available Marilin oliver [address] [place], [address] 06/13/2024 07:03:38 06/13/20 24 06/13/2024 COMPR EHENS RJ METAB OLIC PANEL creatinine 1.6 mg/dL 0.55-1 .02 high Not Available [address] [place], [address] 06/13/2024 07:03:38 06/13/20 24 06/13/2024 COMPR EHENS RJ METAB OLIC PANEL estimated GFR 33.84 mL/min [...] young er-ag ed adult s. Not Available [address] [place], [address] 06/13/2024 07:03:38 06/13/20 24 06/13/2024 COMPR EHENS JR METAB OLIC PANEL total protein 6.7 g/dL 6.4-8. 2 normal Not Available [address] [place], [address] 06/13/2024 07:03:38 06/13/20 24 06/13/2024 COMPR EHENS JR METAB OLIC PANEL albumin 3.5 g/dL 3.4-5. 0 normal Not Available [address] [place], [address] 06/13/2024 07:03:38 06/13/20 24 06/13/2024 COMPR EHENS JR METAB OLIC PANEL bilirubin, total 0.40 mg/dL 0.2-1. 0 normal Not Available [address] [place], [address] 06/13/2024 07:03:38 06/13/20 24 06/13/2024 COMPR EHENS JR METAB OLIC PANEL alk phos 91 U/L 46-116 normal Not Available [address] [place], [address] 06/13/2024 07:03:38 06/13/20 24 06/13/2024 COMPR EHENS JR METAB OLIC PANEL sodium 138 mmol/ L 136-14 5 normal Not Available [address] [place], [address] 06/13/2024 07:03:38 06/13/20 24 06/13/2024 COMPR EHENS JR METAB OLIC PANEL potassium 3.4 mmol/ L 3.5-5. 1 low Not Available [address] [place], [address] 06/13/2024 07:03:38 06/13/20 24 06/13/2024 COMPR EHENS JR METAB OLIC PANEL chloride 106 mmol/ L 98-107 normal Not Available [address] [place], [address] 06/13/2024 07:03:38 06/13/20 24 06/13/2024 COMPR EHENS JR METAB OLIC PANEL CO2 22.6 mmol/ L 21.0-3 2.0 normal Not Available [address] [place], [address] 06/13/2024 07:03:38 06/13/20 24 06/13/2024 COMPR EHENS JR METAB OLIC PANEL anion gap 9.4 mmol/ L 3-11 normal Not Available [address] [place], [address] 06/13/2024 07:03:38 06/13/20 24 06/13/2024 COMPR EHENS JR METAB OLIC PANEL AST 14 U/L 15-37 low Not Available Marilin oliver [address] [place], [address] 06/13/2024 07:03:38 06/13/20 24 06/13/2024 COMPR EHENS JR METAB OLIC PANEL ALT 12 U/L 14-59 low Not Available Marilin oliver [address] [place], [address] 06/13/2024 07:03:38 06/13/20 24 06/13/2024 COMPL ETE BLOOD COUNT NO DIFF WBC 8.48 10_3/ uL 4.4-10 .8 normal Not Available [address] [place], [address] 06/13/2024 06:47:37 06/13/20 24 06/13/2024 COMPL ETE BLOOD COUNT NO DIFF RBC 3.48 10_6/ uL 3.93-5 .22 low Not Available [address] [place], [address] 06/13/2024 06:47:37 06/13/20 24 06/13/2024 COMPL ETE BLOOD COUNT NO DIFF HGB 10.8 g/dL 11.2-1 5.7 low Not Available [address] [place], [address] 06/13/2024 06:47:37 06/13/20 24 06/13/2024 COMPL ETE BLOOD COUNT NO DIFF HCT 31.5 % 36.0-4 6.0 low Not Available [address] [place], [address] 06/13/2024 06:47:37 06/13/20 24 06/13/2024 COMPL ETE BLOOD COUNT NO DIFF MCV 91 fL 80-95 normal Not Available [address] [place], [address] 06/13/2024 06:47:37 06/13/20 24 06/13/2024 COMPL ETE BLOOD COUNT NO DIFF MCH 31.0 pg 27.0-3 3.0 normal Not Available [address] [place], [address] 06/13/2024 06:47:37 06/13/20 24 06/13/2024 COMPL ETE BLOOD COUNT NO DIFF MCHC 34.3 % 32.0-3 6.0 normal Not Available [address] [place], [address] 06/13/2024 06:47:37 06/13/20 24 06/13/2024 COMPL ETE BLOOD COUNT NO DIFF RDW 12.1 % 11.7-1 4.6 normal Not Available [address] [place], [address] 06/13/2024 06:47:37 06/13/20 24 06/13/2024 COMPL ETE BLOOD COUNT NO DIFF platelet count 200 10_3/ uL 130-40 0 normal Not Available [address] [place], [address] 06/13/2024 06:47:37 06/13/20 24 06/13/2024 COMPL ETE BLOOD COUNT NO DIFF MPV 10.5 fL 8.0-11 .0 normal Not Available [address] [place], [address] 06/13/2024 06:47:37 06/16/20 24 06/16/2024 COMPL ETE BLOOD COUNT W/DIF F WBC 10.78 10_3/ uL 4.4-10 .8 normal Not Available [address] [place], [address] 06/16/2024 15:02:01 06/16/20 24 06/16/2024 COMPL ETE BLOOD COUNT W/DIF F RBC 3.86 10_6/ uL 3.93-5 .22 low Not Available [address] [place], [address] 06/16/2024 15:02:01 06/16/20 24 06/16/2024 COMPL ETE BLOOD COUNT W/DIF F HGB 11.8 g/dL 11.2-1 5.7 normal Not Available [address] [place], [address] 06/16/2024 15:02:01 06/16/20 24 06/16/2024 COMPL ETE BLOOD COUNT W/DIF F HCT 35.1 % 36.0-4 6.0 low Not Available [address] [place], [address] 06/16/2024 15:02:01 06/16/20 24 06/16/2024 COMPL ETE BLOOD COUNT W/DIF F MCV 91 fL 80-95 normal Not Available [address] [place], [address] 06/16/2024 15:02:01 06/16/20 24 06/16/2024 COMPL ETE BLOOD COUNT W/DIF F MCH 30.6 pg 27.0-3 3.0 normal Not Available [address] [place], [address] 06/16/2024 15:02:01 06/16/20 24 06/16/2024 COMPL ETE BLOOD COUNT W/DIF F MCHC 33.6 % 32.0-3 6.0 normal Not Available [address] [place], [address] 06/16/2024 15:02:01 06/16/20 24 06/16/2024 COMPL ETE BLOOD COUNT W/DIF F RDW 12.5 % 11.7-1 4.6 normal Not Available [address] [place], [address] 06/16/2024 15:02:01 06/16/20 24 06/16/2024 COMPL ETE BLOOD COUNT W/DIF F platelet count 256 10_3/ uL 130-40 0 normal Not Available [address] [place], [address] 06/16/2024 15:02:01 06/16/20 24 06/16/2024 COMPL ETE BLOOD COUNT W/DIF F MPV 10.2 fL 8.0-11 .0 normal Not Available [address] [place], [address] 06/16/2024 15:02:01 06/16/20 24 06/16/2024 COMPL ETE BLOOD COUNT W/DIF F neutrophils % 61.1 % Not Available [facility] [address] [place], [address] 06/16/2024 15:02:01 06/16/20 24 06/16/2024 COMPL ETE BLOOD COUNT W/DIF F lymphocytes % 29.4 % Not Available [address] [place], [address] 06/16/2024 15:02:01 06/16/20 24 06/16/2024 COMPL ETE BLOOD COUNT W/DIF F monocytes % 6.9 % Not Available [address] [place], [address] 06/16/2024 15:02:01 06/16/20 24 06/16/2024 COMPL ETE BLOOD COUNT W/DIF F eosinophils % 1.5 % Not Available [address] [place], [address] 06/16/2024 15:02:01 06/16/20 24 06/16/2024 COMPL ETE BLOOD COUNT W/DIF F basophils % 0.6 % Not Available [address] [place], [address] 06/16/2024 15:02:01 06/16/20 24 06/16/2024 COMPL ETE BLOOD COUNT W/DIF F immature grans % 0.5 % Not Available [address] [place], [address] 06/16/2024 15:02:01 06/16/20 24 06/16/2024 COMPL ETE BLOOD COUNT W/DIF F nucleated RBC 0.0 % 0.0-0. 3 normal Not Available [address] [place], [address] 06/16/2024 15:02:01 06/16/20 24 06/16/2024 COMPL ETE BLOOD COUNT W/DIF F absolute neutrophil count 6.59 10_3/ uL 1.2-6. 7 normal Not Available [address] [place], [address] 06/16/2024 15:02:01 06/16/20 24 06/16/2024 COMPL ETE BLOOD COUNT W/DIF F absolute lymphocyte count 3.17 10_3/ uL 1.2-3. 4 normal Not Available [address] [place], [address] 06/16/2024 15:02:01 06/16/20 24 06/16/2024 COMPL ETE BLOOD COUNT W/DIF F absolute monocyte count 0.74 10_3/ uL 0.1-0. 8 normal Not Available [address] [place], [address] 06/16/2024 15:02:01 06/16/20 24 06/16/2024 COMPL ETE BLOOD COUNT W/DIF F absolute eosinophil count 0.16 10_3/ uL 0.0-0. 7 normal Not Available [address] [place], [address] 06/16/2024 15:02:01 06/16/20 24 06/16/2024 COMPL ETE BLOOD COUNT W/DIF F absolute basophil count 0.07 10_3/ uL 0.0-0. 2 normal Not Available [address] [place], [address] 06/16/2024 15:02:01 06/16/20 24 06/16/2024 BASIC METAB OLIC PANEL calcium 9.1 mg/dL 8.5-10 .1 normal Not Available [address] [place], [address] 06/16/2024 14:45:56 06/16/20 24 06/16/2024 BASIC METAB OLIC PANEL glucose 126 mg/dL 74-106 high Not Available Marilin oliver [address] [place], [address] 06/16/2024 14:45:56 06/16/20 24 06/16/2024 BASIC METAB OLIC PANEL BUN 26 mg/dL 7-18 high Not Available Marilin oliver [address] [place], [address] 06/16/2024 14:45:56 06/16/20 24 06/16/2024 BASIC METAB OLIC PANEL creatinine 1.7 mg/dL 0.55-1 .02 high Not Available [address] [place], [address] 06/16/2024 14:45:56 06/16/20 24 06/16/2024 BASIC METAB OLIC PANEL estimated GFR 31.47 [...] young er-ag ed adult s. Not Available [address] [place], [address] 06/16/2024 14:45:56 06/16/20 24 06/16/2024 BASIC METAB OLIC PANEL sodium 139 mmol/ L 136-14 5 normal Not Available [address] [place], [address] 06/16/2024 14:45:56 06/16/20 24 06/16/2024 BASIC METAB OLIC PANEL potassium 3.4 mmol/ L 3.5-5. 1 low Not Available [address] [place], [address] 06/16/2024 14:45:56 06/16/20 24 06/16/2024 BASIC METAB OLIC PANEL chloride 104 mmol/ L 98-107 normal Not Available [address] [place], [address] 06/16/2024 14:45:56 06/16/20 24 06/16/2024 BASIC METAB OLIC PANEL CO2 25.3 mmol/ L 21.0-3 2.0 normal Not Available [address] [place], [address] 06/16/2024 14:45:56 06/16/20 24 06/16/2024 BASIC METAB OLIC PANEL anion gap 9.7 mmol/ L 3-11 normal Not Available [address] [place], [address] 06/16/2024 14:45:56 06/17/20 24 06/17/2024 BASIC METAB OLIC PANEL calcium 9.0 mg/dL 8.5-10 .1 normal Not Available [address] [place], [address] 06/17/2024 11:32:16 06/17/20 24 06/17/2024 BASIC METAB OLIC PANEL glucose 116 mg/dL 74-106 high Not Available Marilin oliver [address] [place], [address] 06/17/2024 11:32:16 06/17/20 24 06/17/2024 BASIC METAB OLIC PANEL BUN 21 mg/dL 7-18 high Not Available Marilin oliver [address] [place], [address] 06/17/2024 11:32:16 06/17/20 24 06/17/2024 BASIC METAB OLIC PANEL creatinine 1.5 mg/dL 0.55-1 .02 high Not Available [address] [place], [address] 06/17/2024 11:32:16 06/17/20 24 06/17/2024 BASIC METAB [...] young er-ag ed adult s. Not Available [address] [place], [address] 06/17/2024 11:32:16 06/17/20 24 06/17/2024 BASIC METAB OLIC PANEL sodium 139 mmol/ L 136-14 5 normal Not Available [address] [place], [address] 06/17/2024 11:32:16 06/17/20 24 06/17/2024 BASIC METAB OLIC PANEL potassium 3.3 mmol/ L 3.5-5. 1 low Not Available [address] [place], [address] 06/17/2024 11:32:16 06/17/20 24 06/17/2024 BASIC METAB OLIC PANEL chloride 107 mmol/ L 98-107 normal Not Available [address] [place], [address] 06/17/2024 11:32:16 06/17/20 24 06/17/2024 BASIC METAB OLIC PANEL CO2 21.5 mmol/ L 21.0-3 2.0 normal Not Available [address] [place], [address] 06/17/2024 11:32:16 06/17/20 24 06/17/2024 BASIC METAB OLIC PANEL anion gap 10.5 mmol/ L 3-11 normal Not Available [address] [place], [address] 06/17/2024 11:32:16 06/17/20 24 06/17/2024 HEMOG LOBIN [...] pleme nt 1):S1 3-s28 . Not Available [address] [place], [address] 06/17/2024 06:25:25 06/17/20 24 06/17/2024 BASIC METAB OLIC PANEL calcium 9.0 mg/dL 8.5-10 .1 normal Not Available [address] [place], [address] 06/17/2024 05:57:23 06/17/20 24 06/17/2024 BASIC METAB OLIC PANEL glucose 107 mg/dL 74-106 high Not Available Marilin oliver [address] [place], [address] 06/17/2024 05:57:23 06/17/20 24 06/17/2024 BASIC METAB OLIC PANEL BUN 23 mg/dL 7-18 high Not Available Marilin oliver [address] [place], [address] 06/17/2024 05:57:23 06/17/20 24 06/17/2024 BASIC METAB OLIC PANEL creatinine 1.5 mg/dL 0.55-1 .02 high Not Available [address] [place], [address] 06/17/2024 05:57:23 06/17/20 24 06/17/2024 BASIC METAB [...] young er-ag ed adult s. Not Available [address] [place], [address] 06/17/2024 05:57:23 06/17/20 24 06/17/2024 BASIC METAB OLIC PANEL sodium 141 mmol/ L 136-14 5 normal Not Available [address] [place], [address] 06/17/2024 05:57:23 06/17/20 24 06/17/2024 BASIC METAB OLIC PANEL potassium 2.9 mmol/ L 3.5-5. 1 critical low Criti shea value repor liz to and readb ack from FÉLIX CHU (RN), [place] at 0554 06/17 by LAB.I DOTTIE Not Available [address] [place], [address] 06/17/2024 05:57:23 06/17/20 24 06/17/2024 BASIC METAB OLIC PANEL chloride 109 mmol/ L 98-107 high Not Available [address] [place], [address] 06/17/2024 05:57:23 06/17/20 24 06/17/2024 BASIC METAB OLIC PANEL CO2 20.7 mmol/ L 21.0-3 2.0 low Not Available [address] [place], [address] 06/17/2024 05:57:23 06/17/20 24 06/17/2024 BASIC METAB OLIC PANEL anion gap 11.3 mmol/ L 3-11 high Not Available [address] [place], [address] 06/17/2024 05:57:23 06/17/20 24 06/17/2024 COMPL ETE BLOOD COUNT W/DIF F WBC 8.86 10_3/ uL 4.4-10 .8 normal Not Available [address] [place], [address] 06/17/2024 05:44:23 06/17/20 24 06/17/2024 COMPL ETE BLOOD COUNT W/DIF F RBC 3.36 10_6/ uL 3.93-5 .22 low Not Available [address] [place], [address] 06/17/2024 05:44:23 06/17/20 24 06/17/2024 COMPL ETE BLOOD COUNT W/DIF F HGB 10.4 g/dL 11.2-1 5.7 low Not Available [address] [place], [address] 06/17/2024 05:44:23 06/17/20 24 06/17/2024 COMPL ETE BLOOD COUNT W/DIF F HCT 29.8 % 36.0-4 6.0 low Not Available [address] [place], [address] 06/17/2024 05:44:23 06/17/20 24 06/17/2024 COMPL ETE BLOOD COUNT W/DIF F MCV 89 fL 80-95 normal Not Available Marilin oliver [address] [place], [address] 06/17/2024 05:44:23 06/17/20 24 06/17/2024 COMPL ETE BLOOD COUNT W/DIF F MCH 31.0 pg 27.0-3 3.0 normal Not Available [address] [place], [address] 06/17/2024 05:44:23 06/17/20 24 06/17/2024 COMPL ETE BLOOD COUNT W/DIF F MCHC 34.9 % 32.0-3 6.0 normal Not Available [address] [place], [address] 06/17/2024 05:44:23 06/17/20 24 06/17/2024 COMPL ETE BLOOD COUNT W/DIF F RDW 12.3 % 11.7-1 4.6 normal Not Available [address] [place], [address] 06/17/2024 05:44:23 06/17/20 24 06/17/2024 COMPL ETE BLOOD COUNT W/DIF F platelet count 219 10_3/ uL 130-40 0 normal Not Available [address] [place], [address] 06/17/2024 05:44:23 06/17/20 24 06/17/2024 COMPL ETE BLOOD COUNT W/DIF F MPV 10.5 fL 8.0-11 .0 normal Not Available [address] [place], [address] 06/17/2024 05:44:23 06/17/20 24 06/17/2024 COMPL ETE BLOOD COUNT W/DIF F neutrophils % 51.9 % Not Available [address] [place], [address] 06/17/2024 05:44:23 06/17/20 24 06/17/2024 COMPL ETE BLOOD COUNT W/DIF F lymphocytes % 37.2 % Not Available [address] [place], [address] 06/17/2024 05:44:23 06/17/20 24 06/17/2024 COMPL ETE BLOOD COUNT W/DIF F monocytes % 7.4 % Not Available [address] [place], [address] 06/17/2024 05:44:23 06/17/20 24 06/17/2024 COMPL ETE BLOOD COUNT W/DIF F eosinophils % 2.7 % Not Available [address] [place], [address] 06/17/2024 05:44:23 06/17/20 24 06/17/2024 COMPL ETE BLOOD COUNT W/DIF F basophils % 0.6 % Not Available [address] [place], [address] 06/17/2024 05:44:23 06/17/20 24 06/17/2024 COMPL ETE BLOOD COUNT W/DIF F immature grans % 0.2 % Not Available Carlosnguyen [address] [place], [address] 06/17/2024 05:44:23 06/17/20 24 06/17/2024 COMPL ETE BLOOD COUNT W/DIF F nucleated RBC 0.0 % 0.0-0. 3 normal Not Available [address] [place], [address] 06/17/2024 05:44:23 06/17/20 24 06/17/2024 COMPL ETE BLOOD COUNT W/DIF F absolute neutrophil count 4.59 10_3/ uL 1.2-6. 7 normal Not Available [address] [place], [address] 06/17/2024 05:44:23 06/17/20 24 06/17/2024 COMPL ETE BLOOD COUNT W/DIF F absolute lymphocyte count 3.30 10_3/ uL 1.2-3. 4 normal Not Available [address] [place], [address] 06/17/2024 05:44:23 06/17/20 24 06/17/2024 COMPL ETE BLOOD COUNT W/DIF F absolute monocyte count 0.66 10_3/ uL 0.1-0. 8 normal Not Available [address] [place], [address] 06/17/2024 05:44:23 06/17/20 24 06/17/2024 COMPL ETE BLOOD COUNT W/DIF F absolute eosinophil count 0.24 10_3/ uL 0.0-0. 7 normal Not Available [address] [place], [address] 06/17/2024 05:44:23 06/17/20 24 06/17/2024 COMPL ETE BLOOD COUNT W/DIF F absolute basophil count 0.05 10_3/ uL 0.0-0. 2 normal Not Available [address] [place], [address] 06/17/2024 05:44:23 07/02/20 24 07/02/2024 BASIC METAB OLIC PANEL calcium 9.3 mg/dL 8.5-10 .1 normal Not Available [address] [place], [address] 07/02/2024 16:18:07 07/02/20 24 07/02/2024 BASIC METAB OLIC PANEL glucose 110 mg/dL 74-106 high Not Available Marilin oliver [address] [place], [address] 07/02/2024 16:18:07 07/02/20 24 07/02/2024 BASIC METAB OLIC PANEL BUN 40 mg/dL 7-18 high Not Available Marilin oliver [address] [place], [address] 07/02/2024 16:18:07 07/02/20 24 07/02/2024 BASIC METAB OLIC PANEL creatinine 1.6 mg/dL 0.55-1 .02 high Not Available [address] [place], [address] 07/02/2024 16:18:07 07/02/20 24 07/02/2024 BASIC METAB [...] young er-ag ed adult s. Not Available [address] [place], [address] 07/02/2024 16:18:07 07/02/20 24 07/02/2024 BASIC METAB OLIC PANEL sodium 147 mmol/ L 136-14 5 high Not Available [address] [place], [address] 07/02/2024 16:18:07 07/02/20 24 07/02/2024 BASIC METAB OLIC PANEL potassium 3.9 mmol/ L 3.5-5. 1 normal Not Available [address] [place], [address] 07/02/2024 16:18:07 07/02/20 24 07/02/2024 BASIC METAB OLIC PANEL chloride 116 mmol/ L 98-107 high Not Available [address] [place], [address] 07/02/2024 16:18:07 07/02/20 24 07/02/2024 BASIC METAB OLIC PANEL CO2 17.4 mmol/ L 21.0-3 2.0 low Not Available [address] [place], [address] 07/02/2024 16:18:07 07/02/20 24 07/02/2024 BASIC METAB OLIC PANEL anion gap 13.6 mmol/ L 3-11 high Not Available [address] [place], [address] 07/02/2024 16:18:07 07/09/20 24 07/09/2024 COMPL ETE BLOOD COUNT W/DIF F WBC 10.14 10_3/ uL 4.4-10 .8 normal Not Available [address] [place], [address] 07/09/2024 16:14:29 07/09/20 24 07/09/2024 COMPL ETE BLOOD COUNT W/DIF F RBC 3.43 10_6/ uL 3.93-5 .22 low Not Available [address] [place], [address] 07/09/2024 16:14:29 07/09/20 24 07/09/2024 COMPL ETE BLOOD COUNT W/DIF F HGB 10.4 g/dL 11.2-1 5.7 low Not Available [address] [place], [address] 07/09/2024 16:14:29 07/09/20 24 07/09/2024 COMPL ETE BLOOD COUNT W/DIF F HCT 32.0 % 36.0-4 6.0 low Not Available [address] [place], [address] 07/09/2024 16:14:29 07/09/2007/09/2024 COMPL ETE BLOOD COUNT W/DIF F MCV 93 fL 80-95 normal Not Available [address] [place], [address] 07/09/2024 16:14:29 07/09/2007/09/2024 COMPL ETE BLOOD COUNT W/DIF F MCH 30.3 pg 27.0-3 3.0 normal Not Available [address] [place], [address] 07/09/2024 16:14:29 07/09/2007/09/2024 COMPL ETE BLOOD COUNT W/DIF F MCHC 32.5 % 32.0-3 6.0 normal Not Available [address] [place], [address] 07/09/2024 16:14:29 07/09/2007/09/2024 COMPL ETE BLOOD COUNT W/DIF F RDW 13.6 % 11.7-1 4.6 normal Not Available [address] [place], [address] 07/09/2024 16:14:29 07/09/20 24 07/09/2024 COMPL ETE BLOOD COUNT W/DIF F platelet count 286 10_3/ uL 130-40 0 normal Not Available [address] [place], [address] 07/09/2024 16:14:29 07/09/20 24 07/09/2024 COMPL ETE BLOOD COUNT W/DIF F MPV 11.3 fL 8.0-11 .0 high Not Available [address] [place], [address] 07/09/2024 16:14:29 07/09/2007/09/2024 COMPL ETE BLOOD COUNT W/DIF F neutrophils % 75.1 % Not Available [address] [place], [address] 07/09/2024 16:14:29 07/09/2007/09/2024 COMPL ETE BLOOD COUNT W/DIF F lymphocytes % 16.1 % Not Available [address] [facility] [place], [address] 07/09/2024 16:14:29 07/09/2007/09/2024 COMPL ETE BLOOD COUNT W/DIF F monocytes % 6.5 % Not Available [address] [place], [address] 07/09/2024 16:14:29 07/09/2007/09/2024 COMPL ETE BLOOD COUNT W/DIF F eosinophils % 1.3 % Not Available [address] [facility] [place], [address] 07/09/2024 16:14:29 07/09/2007/09/2024 COMPL ETE BLOOD COUNT W/DIF F basophils % 0.6 % Not Available [address] [place], [address] 07/09/2024 16:14:29 07/09/2007/09/2024 COMPL ETE BLOOD COUNT W/DIF F immature grans % 0.4 % Not Available [address] [facility] [place], [address] 07/09/2024 16:14:29 07/09/2007/09/2024 COMPL ETE BLOOD COUNT W/DIF F nucleated RBC 0.0 % 0.0-0. 3 normal Not Available [address] [facility] [place], [address] 07/09/2024 16:14:29 07/09/2007/09/2024 COMPL ETE BLOOD COUNT W/DIF F absolute neutrophil count 7.62 10_3/ uL 1.2-6. 7 high Not Available [address] [place], [address] 07/09/2024 16:14:29 07/09/2007/09/2024 COMPL ETE BLOOD COUNT W/DIF F absolute lymphocyte count 1.63 10_3/ uL 1.2-3. 4 normal Not Available [address] [place], [address] 07/09/2024 16:14:29 07/09/20 24 07/09/2024 COMPL ETE BLOOD COUNT W/DIF F absolute monocyte count 0.66 10_3/ uL 0.1-0. 8 normal Not Available [address] [place], [address] 07/09/2024 16:14:29 07/09/20 24 07/09/2024 COMPL ETE BLOOD COUNT W/DIF F absolute eosinophil count 0.13 10_3/ uL 0.0-0. 7 normal Not Available [address] [place], [address] 07/09/2024 16:14:29 07/09/20 24 07/09/2024 COMPL ETE BLOOD COUNT W/DIF F absolute basophil count 0.06 10_3/ uL 0.0-0. 2 normal Not Available [address] [place], [address] 07/09/2024 16:14:29 07/09/20 24 07/09/2024 BASIC METAB OLIC PANEL calcium 9.2 mg/dL 8.5-10 .1 normal Not Available [address] [place], [address] 07/09/2024 16:20:26 07/09/20 24 07/09/2024 BASIC METAB OLIC PANEL glucose 228 mg/dL 74-106 high Not Available Marilin oliver [address] [place], [address] 07/09/2024 16:20:26 07/09/20 24 07/09/2024 BASIC METAB OLIC PANEL BUN 45 mg/dL 7-18 high Not Available Marilin oliver [address] [place], [address] 07/09/2024 16:20:26 07/09/20 24 07/09/2024 BASIC METAB OLIC PANEL creatinine 1.9 mg/dL 0.55-1 .02 high Not Available [address] [place], [address] 07/09/2024 16:20:26 07/09/20 24 07/09/2024 BASIC METAB [...] young er-ag ed adult s. Not Available [address] [place], [address] 07/09/2024 16:20:26 07/09/2007/09/2024 BASIC METAB OLIC PANEL sodium 147 mmol/ L 136-14 5 high Not Available [address] [place], [address] 07/09/2024 16:20:26 07/09/2007/09/2024 BASIC METAB OLIC PANEL potassium 3.4 mmol/ L 3.5-5. 1 low Not Available [address] [place], [address] 07/09/2024 16:20:26 07/09/2007/09/2024 BASIC METAB OLIC PANEL chloride 112 mmol/ L 98-107 high Not Available [address] [place], [address] 07/09/2024 16:20:26 07/09/20 24 07/09/2024 BASIC METAB OLIC PANEL CO2 19.6 mmol/ L 21.0-3 2.0 low Not Available [address] [place], [address] 07/09/2024 16:20:26 07/09/2007/09/2024 BASIC METAB OLIC PANEL anion gap 15.4 mmol/ L 3-11 high Not Available [address] [place], [address] 07/09/2024 16:20:26 07/09/20 24 07/09/2024 MAGNE SIUM magnesium 1.9 mg/dL 1.8-2. 4 normal Not Available [address] [place], [address] 07/09/2024 16:20:27 07/15/2007/15/2024 COMPL ETE BLOOD COUNT W/DIF F WBC 17.56 10_3/ uL 4.4-10 .8 high Not Available [address] [place], [address] 07/15/2024 16:03:58 07/15/2007/15/2024 COMPL ETE BLOOD COUNT W/DIF F RBC 3.73 10_6/ uL 3.93-5 .22 low Not Available [address] [place], [address] 07/15/2024 16:03:58 07/15/2007/15/2024 COMPL ETE BLOOD COUNT W/DIF F HGB 11.3 g/dL 11.2-1 5.7 normal Not Available [address] [place], [address] 07/15/2024 16:03:58 07/15/2007/15/2024 COMPL ETE BLOOD COUNT W/DIF F HCT 32.4 % 36.0-4 6.0 low Not Available [address] [place], [address] 07/15/2024 16:03:58 07/15/2007/15/2024 COMPL ETE BLOOD COUNT W/DIF F MCV 87 fL 80-95 normal Not Available Marilin oliver [address] [place], [address] 07/15/2024 16:03:58 07/15/2007/15/2024 COMPL ETE BLOOD COUNT W/DIF F MCH 30.3 pg 27.0-3 3.0 normal Not Available [address] [place], [address] 07/15/2024 16:03:58 07/15/2007/15/2024 COMPL ETE BLOOD COUNT W/DIF F MCHC 34.9 % 32.0-3 6.0 normal Not Available [address] [place], [address] 07/15/2024 16:03:58 07/15/2007/15/2024 COMPL ETE BLOOD COUNT W/DIF F RDW 13.1 % 11.7-1 4.6 normal Not Available [address] [place], [address] 07/15/2024 16:03:58 07/15/2007/15/2024 COMPL ETE BLOOD COUNT W/DIF F platelet count 351 10_3/ uL 130-40 0 normal Not Available [address] [place], [address] 07/15/2024 16:03:58 07/15/2007/15/2024 COMPL ETE BLOOD COUNT W/DIF F MPV 11.0 fL 8.0-11 .0 normal Not Available [address] [place], [address] 07/15/2024 16:03:58 07/15/2007/15/2024 COMPL ETE BLOOD COUNT W/DIF F neutrophils % 62.1 % Not Available [address] [place], [address] 07/15/2024 16:03:58 07/15/2007/15/2024 COMPL ETE BLOOD COUNT W/DIF F lymphocytes % 27.7 % Not Available [address] [place], [address] 07/15/2024 16:03:58 07/15/2007/15/2024 COMPL ETE BLOOD COUNT W/DIF F monocytes % 5.9 % Not Available [address] [place], [address] 07/15/2024 16:03:58 07/15/2007/15/2024 COMPL ETE BLOOD COUNT W/DIF F eosinophils % 2.1 % Not Available [address] [place], [address] 07/15/2024 16:03:58 07/15/2007/15/2024 COMPL ETE BLOOD COUNT W/DIF F basophils % 0.7 % Not Available [address] [place], [address] 07/15/2024 16:03:58 07/15/2007/15/2024 COMPL ETE BLOOD COUNT W/DIF F immature grans % 1.5 % Not Available Yamil marrero [address] [place], [address] 07/15/2024 16:03:58 07/15/2007/15/2024 COMPL ETE BLOOD COUNT W/DIF F nucleated RBC 0.0 % 0.0-0. 3 normal Not Available [address] [place], [address] 07/15/2024 16:03:58 07/15/2007/15/2024 COMPL ETE BLOOD COUNT W/DIF F absolute neutrophil count 10.90 10_3/ uL 1.2-6. 7 high Not Available [address] [place], [address] 07/15/2024 16:03:58 07/15/2007/15/2024 COMPL ETE BLOOD COUNT W/DIF F absolute lymphocyte count 4.86 10_3/ uL 1.2-3. 4 high Not Available [address] [place], [address] 07/15/2024 16:03:58 07/15/2007/15/2024 COMPL ETE BLOOD COUNT W/DIF F absolute monocyte count 1.04 10_3/ uL 0.1-0. 8 high Not Available [address] [place], [address] 07/15/2024 16:03:58 07/15/2007/15/2024 COMPL ETE BLOOD COUNT W/DIF F absolute eosinophil count 0.37 10_3/ uL 0.0-0. 7 normal Not Available [address] [place], [address] 07/15/2024 16:03:58 07/15/2007/15/2024 COMPL ETE BLOOD COUNT W/DIF F absolute basophil count 0.12 10_3/ uL 0.0-0. 2 normal Not Available [address] [place], [address] 07/15/2024 16:03:58 01/19/20 24 01/19/2024 MRI imagi ng repor t Patien t Name: Martha Payton Unit #: [id number] Loc: DI Orderi ng Provid er: Yulissa Lainez Accoun t #: [id number] Status : REG CLI Primar y [...] Dictat ed By: Aden Johnston M.D. [id number] 133 Transc ribed By: Vickie RODRIGUEZ,Yessenia kendra 1338 [...] at the addres s above. Thank- you. [email or web address] [address] [place], [address] 01/19/2024 15:21:28 01/19/2001/19/2024 MRI, brain , w/o contr ast No observ ation record ed. [email or web address] [facility] (Radiology) [address] [place] [address] [place], [address], 01/20/2024 08:49:10 01/19/20 24 01/19/2024 MRI, brain , w/o contr ast No observ ation record ed. [email or web address] [facility] (Radiology) [address] [facility] [address] [place], [address], 01/20/2024 08:49:24 03/02/20 24 03/02/2024 MRI imagi ng repor t Patien t Name: Martha Payton Unit #: [id number] Loc: DI Orderi ng Provid er: Yulissa Lainez Accoun t #: [id number] Status : REG CLI Primar y [...] occlus ion or signif icant stenos is. Round Cutter Operator ior Cerebr al Arteri es: Right: No aneury sm, occlus ion or signif icant stenos is. Left: No aneury sm, occlus ion or signif icant stenos is. The left security delivery specialist ior cerebr al artery arises from the left security delivery specialist ior commun icatin g artery which is [...] error, please notify us immedi michellely at [phone] and return the origin al report to us at the addres s above. Thank- you. [email or web address] [facility] [address], [place], [address] 03/03/2024 18:56:46 03/02/20 24 03/02/2024 MRI imagi ng repor t Patikatie t Name: Martha Payton Unit #: [id number] Loc: DI Orderi ng Provid er: Yulissa Lainez Accoun t #: [id number] Status : REG CLI Primar y [...] COMPAR NAHID: MR MR BRAIN WO from 04/29/ 2024 FINDIN GS: Common Caroti d: Right: No dissec tion, occlus ion or signif icant stenos is. Left: No dissec tion, occlus ion or signif icant stenos is. Hoof And Shoe Inspector al Caroti d: Right: No eviden ce of occlus ion or signif icant stenos is. Left: No eviden ce of occlus ion or signif icant stenos is. Shearing Supervisor al Caroti d: Right: No dissec tion, [...] at the addres s above. Thank- you. [email or web address] [facility] [address] [facility] [address] [place], [address] 03/03/2024 18:56:46 03/09/20 24 03/09/2024 ultra sound imagi ng ofelia t Obdulia t Name: Martha Payton Unit #: [id number] Loc: DI Orderi ng Provid er: Yulissa Lainez Accoun t #: [id number] Status : REG CLI Primar y Care Provid er: Yulissa Lainez Date of Exam: 02/20 05/15 Sex: F Admiss ion Date: : 1949 Age: 73 ------ ------ --- APPROV ED REPORT ------ ------ -- EXAM: Compre hensiv e 2D, Dopple r, and color- flow Echoca rdiogr am Patien t Locati on: Out-Pa tient Sonogr apher: [...] by any person other than this [facility] er is strict ly prohib ited. If you receiv e this report in error, please notify us immedi ately at and return the origin al report to us at the addres s above. Thank- you. [email or web address] [facility] [address] [place], [address] 03/15/2024 11:38:17 03/09/20 24 03/09/2024 CT imagi ng repor t Patien t Name: Martha Payton Unit #: [id number] Loc: DI Orderi ng Provid er: Yulissa Lainez Accoun t #: [id number] Status : REG CLI Primar y [...] tion); or iterat jr recons tructi on. 617-0 001: Total DLP = 0.00 mGy-cm Ordere [...] error, please notify us immedi laurel at [phone] and return the origin al report to us at the addres s above. Thank- you. [email or web address] [facility] [address] [facility] [place], [address] 03/15/2024 11:38:18 06/12/20 24 06/12/2024 x-ray imagi ng repor t Obdulia t Name: Martha Payton Unit #: [id number] Loc: ER Orderi ng Provid er: Lacho Correa M.D. Accoun t #: [id number] Status : REG ER Primar y [...] the addres s above. Thank- you. INTERFACE [facility] [address], [place], [address] 06/12/2024 18:34:32 06/12/20 24 06/12/2024 x-ray imagi ng ofelia wilde Name: Martha Payton Unit #: [id number] Loc: ER Orderi ng Provid er: Lacho Correa M.D. Accoun t #: [id number] Status : REG ER Primar y [...] the addres s above. Thank- you. INTERFACE [facility] [address], [place], [address] 06/12/2024 18:34:33 06/12/20 24 06/12/2024 CT imagi ng repor t Patien t Name: Martha Payton Unit #: [id number] Loc: ER Orderi ng Provid er: Lacho Correa M.D. Accoun t #: [id number] Status : REG ER Primar y [...] error, please notify us immedi ately at [phone] and return the origin al report to us at the addres s above. Thank- you. INTERFACE [address], [place], [address] 06/12/2024 18:43:33 06/12/20 24 06/12/2024 vrad repor t Patikatie t Name: Martha Payton Unit #: [id number] Loc: ER Orderi ng Provid er: Accisael t #: [id number] Status : REG ER Primar y [...] GS: ANTERI OR CIRCUL ATION: Right international trade analyst al caroti d artery : Calcif ied plaque with severe stenos is cavern ous right ICA. Right middle cerebr al artery : Modera te to severe stenos is security delivery specialist ior M3 branch right MCA. No signif icant stenos is remain lien of the right MCA. Right anteri or cerebr al artery : No occlus ion or signif icant stenos is. No aneury sm. Left international trade analyst al caroti d artery : Calcif ied plaque with modera te stenos is cavern ous left ICA. Left middle cerebr al artery : No occlus ion or signif icant stenos is. No aneury sm. Left anteri or cerebr al artery : No occlus ion or signif icant stenos is. No aneury sm. BLOWING ENGINEER IOR CIRCUL ATION: Right verteb ral artery : No occlus ion or signif icant stenos is. No aneury sm. Left verteb ral artery : No occlus ion or signif icant stenos is. No aneury sm. Basila r artery : No occlus ion or signif icant stenos is. No aneury sm. Right security delivery specialist ior cerebr al artery : No occlus ion or signif icant stenos is. No aneury sm. Left security delivery specialist ior cerebr al artery : No occlus ion or signif icant stenos is. No aneury sm. HEAD: Brain: Stable right security delivery specialist ior fronta l and [place] al infarc [...] rkable . IMPRES BASIL: 1. Stable right security delivery specialist ior fronta l and par[place] al infarc t. 2. 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 3. Calcif ied plaque with modera te stenos is cavern ous left ICA. 4. Modera te to severe stenos is security delivery specialist ior M3 branch right MCA. ASSESS MENT: [...] dissec tion or occlus ion. Right international trade analyst al caroti d artery : No stenos is of the extrac ranial segmen t. No dissec tion or occlus ion. Right senior electronics technician al caroti d artery : No occlus ion or stenos is of the origin . Left common caroti d artery : No stenos is. No dissec tion or occlus ion. Left international trade analyst al caroti d artery : No stenos is of the extrac ranial segmen t. No dissec tion or occlus ion. Left senior electronics technician al caroti d artery : No occlus [...] cervic al segmen t of the international trade analyst al caroti d artery is based on NASCET criter ia. Normal is no stenos is. Mild is less than 50% stenos is. Modera te is 50-69% stenos is. Severe is 70% to 99% stenos is. Total occlus ion is no detect able patent lumen. Dictat ed and Daphnie sanchez d by: Abelardo Nagel MD. Almasmariola ng:Ivet ISST Shelby pina MD Access ion#=[id number] Gin d By: CC: ------ ------ [...] at the addres s above. Thank- you. [facility] [address] [place], [address] 06/15/2024 15:45:36 06/13/2006/13/2024 vrad ofelia wilde Name: Martha Payton Unit #: [id number] Loc: MS Thania barrios Provid er: Accoun t #: [id number] Status : ADM IN Primar y [...] MD. Orderi ng:Peyton Zhou MD Access ion#=[id number] Ordere d By: CC: ------ ------ [...] error, please notify us immedi ately at [phone] and return the origin al report to us at the addres s above. Thank- you. [place] [id number], [place], [address] 06/15/2024 15:45:36 06/13/2006/13/2024 CT imagi ng repor t Patikatie t Name: Martha Payton Unit #: [id number] Loc: MS Thania barrios Provid er: Lacho Correa M.D. t #: [id number] Status : ADM IN Primar y [...] right side there is calcif ied plaque security delivery specialist iorly at the caroti d bulb-b ifurca tion level and there is also calcif ied plaque on the medial and security delivery specialist ior saldaña of the proxim al right ICA. Amount of stenos is at this level is estima liz at approx imatel y 40 percen t in the proxim al right ICA. The right ICA is nicely patent in the upper neck. Left caroti d bulb exhibi ts some calcif ied plaque anteri sherry. There is calcif ied plaque on the security delivery specialist ior wall the proxim al left ICA. Approx imatel y 30 percen t stenos is at this level. There is also self like plaque at the origin left ICA with more promin ent stenos is at this level, approx imatel y 70 percen t. Left ICA in the upper neck is patent . Round Cutter Operator ior circul ation: Both verteb ral arteri [...] W: Anteri or circul ation: Both international trade analyst al caroti d arteri es are patent in the skull base-c arotid canals . Both intra cavern ous international trade analyst al caroti d arteri es are periph erally calcif ied. There is a signif icant focal stenos is at the juncti on of the intra cavern ous and suprac linoid aspect of the right international trade analyst al caroti d artery with approx imatel [...] or commun icatin g artery . Left security delivery specialist ior cerebr al artery is patent withou t signif icant stenos is. There is mild-m oderat e narrow ing in the proxim al right middle cerebr al artery . No intral uminal thromb us seen. No aneury sms. No dissec tion flaps. Round Cutter Operator ior circul ation: The basila r artery ascend s in the midlin e. Distal ly it gives off patent right security delivery specialist ior cerebr al artery althou gh there is a modera te stenos is in the security delivery specialist ior cerebr al artery a few cm distal to its origin . The left security delivery specialist ior cerebr al artery is predom inantl y fed by a security delivery specialist ior commun icatin g artery on the left side of the [place]. This that There is no eviden ce of aneury sm at the tip of the basila r artery nor elsewh ere in the [place]. CT BRAIN: Again noted is [...] error, please notify us immedi ately at [phone] and return the origin al report to us at the addres s above. Thank- you. INTERFACE [facility] [address] [facility] [address] [place], [address] 06/13/2024 15:50:13 06/13/20 24 06/13/2024 CT imagi ng repor t Patien t Name: Martha Payton Unit #: [id number] Loc: Ordermariola ng Provid er: Sanjana ois,Da vid Accoun t #: [id number] Status : ADM IN Primar [...] tion); or iterat jr recons tructi on. 921- 001: Total DLP [...] the addres s above. Thank- you. INTERFACE [address] [place], [address] 06/13/2024 16:16:16 06/14/20 24 06/14/2024 MRI imagi ng repor t Patien t Name: Martha Payton Unit #: [id number] Loc: MS Orderi ng Provid er: Jabari Bustamante t #: [id number] Status : ADM IN Primar [...] t motion artifa ct. DATA REPOSI TORY: Gin d By: Jabari Bustamante CC: ------ ------ [...] the addres s above. Thank- you. INTERFACE [facility] [address], [place], [address] 06/14/2024 12:37:22 06/14/20 24 06/14/2024 ultra sound imagi ng repor t Patien t Name: Martha Payton Unit #: [id number] Loc: MS Orderi ng Provid er: Jabari Bustamante Accoun t #: [id number] Status : ADM IN Primar y Care Provid er: Yulissa Lainez Date of Exam: 05/24 12/13 Sex: F Admiss ion Date: : 1949 Age: 73 ------ ------ --- APPROV ED REPORT ------ ------ -- EXAM: Compre hensiv e 2D, Dopple r, and color- flow Echoca rdiogr am Patien t Locati on: In-Pat ient Room/B ed: 208 Sonogr apher: Henriquejarett Oneill, RDCS (AE) Indica tions: CVA Echo [...] the addres s above. Thank- you. INTERFACE [facility] [address], [place], [address] 06/14/2024 15:22:54 Result Notes None recorded. Problems Name Problem SNOMED Code Status Onset Date Resolution Date Notes Provider Name and Address Organization Details Recorded Time Poor short-term memory 580494442 Active [address], [place], [address] , [facility] 4 10:28:13 Essential hypertensi on 99508885 Active [address], [place], [address] , [facility] 4 10:29:23 Blood glucose outside reference range 846461652 Active [address], [place], [address], [facility] 4 10:30:43 Iritis 46018223 Active [address], [place], [address], [facility] 4 10:31:43 Tobacco dependence caused by cigarettes 586980251475 00316 Active [address], [place], [address], [facility] 4 12:23:42 Adjustment disorder with depressed mood 96153801 Active [address], [place], [address], [facility] 4 12:26:28 Prediabete s 263381119 Active 2023 5.7% on [address], [place], [address], [facility] 4 07:52:17 History of coronary artery bypass grafting 917321781 Active 2009 In 2009 per prior med recs [address], [place], [address], [facility] 4 14:53:13 Unexplaine d weight loss 245579300 Active [address], [place], [address], [facility] 4 13:43:55 Chronic cough 40070392 Active [address], [place], [address], [facility] 13:44:00 Pain of left shoulder joint 739657751705 57427 Active [address], [place], [address], [facility] 13:44:16 Hyperlipid emia 35426503 Active [address], [place], [address], [facility] 13:48:11 Chronic obstructiv e pulmonary disease 43933716 Active [address], [place], [address], [facility] 13:49:36 Lacunar infarction 002059970 Active [address], [place], [address], [facility] 18:17:27 Bradycardi a 02378301 Active [address], [place], [address], [facility] 18:36:12 Chronic kidney disease stage 3B 516561009 Active 2023 NOted in 1 Note in prior MR as stage 3 D/T HTN. Plan to control BP as care plan. 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 311459927 Active [address], [place], [address], [facility] 08:09:53 Hypokalemi a 97754593 Active [address], [place], [address], [facility] 08:10:59 Sundowning 564027037 Active [address], [place], [address], [facility] 08:12:54 Loose stool 452839648 Active [address], [place], [address], [facility] 09:45:26 Unsteady when walking 47000874 Active [address], [place], [address], [facility] 10:02:59 Decreased diastolic arterial pressure 94535980 Active [address], [place], [address] [place] [address] 10:04:18 Problem Notes None recorded. Procedures Surgical History None recorded. Imaging Results Imaging Date Name Status LastModified by Organiz ation Details LastModified Time 01/19/2024 MRI imaging report completed [address] [place], [address] 01/19/2024 15:21:28 01/19/2024 MRI, brain, w/o contrast completed [facility] (Radiology) [address] [place] [address] [place], [address], 01/20/2024 08:49:10 01/19/2024 MRI, brain, w/o contrast completed [facility] (Radiology) [address] [place] [address] [place], [address], 01/20/2024 08:49:24 03/02/2024 MRI imaging report completed [address] [place], [address] 03/03/2024 18:56:46 03/02/2024 MRI imaging report completed [address] [place], [address] 03/03/2024 18:56:46 03/09/2024 ultrasound imaging report completed [address] [place], [address] 03/15/2024 11:38:17 03/09/2024 CT imaging report completed [address] [place], [address] 03/15/2024 11:38:18 06/12/2024 x-ray imaging report completed INTERFACE [address] [place], [address] 06/12/2024 18:34:32 06/12/2024 x-ray imaging report completed INTERFACE [address] [place], [address] 06/12/2024 18:34:33 06/12/2024 CT imaging report completed INTERFACE [address] [place], [address] 06/12/2024 18:43:33 06/12/2024 vrad report completed [email or web address] [place] [address] [place], [address] 06/15/2024 15:45:36 06/13/2024 vrad report completed [email or web address] [place], [address] 06/15/2024 15:45:36 06/13/2024 CT imaging report completed INTERFACE [address] [place], [address] 06/13/2024 15:50:13 06/13/2024 CT imaging report completed INTERFACE [address] [place], [address] 06/13/2024 16:16:16 06/14/2024 MRI imaging report completed INTERFACE [address] [place], [address] 06/14/2024 12:37:22 06/14/2024 ultrasound imaging report completed INTERFACE [address] [place], [address] 06/14/2024 15:22:54 Procedure Notes None recorded. Medical Equipment None Reported. Allergies Allergen ID Allergen Name Allergen Category Reaction Reaction Severity Criticality Documentation Date Start Date Code Code System Note Provider Name and Address Organization Details Recorded Time 42170 chlorthal idone medicatio n Not available Not available high 01/28/[address], [place], [address] , [facility]. 17:56:24 26474 hydrochlo rothiazid e medicatio n Not available Not available high 01/28/[id number], [place], [address], [place] - [facility]. 17:56:38 Medications Name Sig Start Date Stop Date Status Note LastModified by Organization Details LastModified Time losartan 50 mg tablet Take 1 tablet twice a day by oral route as directed . 2023 active [facility] Not Available Not Available Not Available quetiapin e 25 mg tablet 1 tablet by mouth each night 2023 active Not Available Not Available Not Avai lable atorvasta tin 80 mg tablet Take 1 tablet every day by oral route at bedtime. 2023 active updated from [facility] [employer] Not Available Not Available Not Available cefuroxim [...] route as directed . 2023 active per [facility] E[facility] Not Available Not Available Not [...] as directed . 2023 active Updated from [employer] Not Available Not Available Not Available aspirin [...] route as directed . 2023 [facility] Not Available Not Available Not Available Ventolin [...] Updated DateTime 4 147.32 cm 21.8 kg/m2 94873.3 2 g 98.1 [degF] 100 % 100 % 72 /min 142 mm[Hg] 84 mm[Hg] DEEDEE PITTMAN MA [facility]. 4 09:58:12 Date Recorded Body height Body mass index (BMI) Body weight Body temperature Oxygen saturation Oxygen saturation in Arterial blood by Pulse oximetry Heart rate Systolic blood pressure Diastolic blood pressure Provider Name and Address Organization Details Last Updated DateTime 4 147.32 cm 21.2 kg/m2 83198.9 8 g 98.1 [degF] 98 % 98 % 55 /min 122 mm[Hg] 90 mm[Hg] DEEDEE PITTMAN MA [facility], [facility] 4 13:06:09 Date Recorded Body height Body mass index (BMI) Body weight Body temperature Oxygen saturation Oxygen saturation in Arterial blood by Pulse oximetry Heart rate Systolic blood pressure Diastolic blood pressure Provider Name and Address Organization Details Last Updated DateTime 4 147.32 cm 20.8 kg/m2 56887.0 8 g 97.7 [degF] 97 % 97 % 62 /min 130 mm[Hg] 72 mm[Hg] DEEDEE PITTMAN MA [facility], [facility] 4 11:29:51 Date Recorded Body height Body [...] Updated DateTime 4 147.32 cm 20.5 kg/m2 85410.4 5 g 98.1 [degF] 99 % 99 % 62 /min 18 /min 195 mm[Hg] 63 mm[Hg] 211 mm[Hg] 102 mm[Hg] 210 mm[Hg] 75 mm[Hg] 199 mm[Hg] 66 mm[Hg] Keesha Zaragoza MA [facility] 4 21:02:19 Date Recorded Body height Body mass index (BMI) Body weight Body temperature Oxygen saturation Oxygen saturation in Arterial blood by Pulse oximetry Respiratory rate Heart rate Systolic blood pressure Diastolic blood pressure Provider Name and Address Organization Details Last Updated DateTime 4 147.32 cm 19.9 kg/m2 33818.9 9 g 98.6 [degF] 100 % 100 % 14 /min 70 /min 108 mm[Hg] 48 mm[Hg] SUKHDEV TORIBIO RN [facility], [facility] 4 09:38:14 Social History Question Answer Notes LastModified by Organizat ion Details LastModified Time Tobacco Smoking Status Current Every Day Smoker [place], [facility] 11/01/2023 11:33:08 Would You Say That, [...] Of Your Most Recent Tobacco Screening? 05/14/2024 [email or web address] Information n ot available 05/14/2024 How Much Tobacco Do You Smoke? 0.5 PPD [email or web address] Information not available 05/14/2024 Has Tobacco Cessation Counseling Been Provided? Yes Information not available 11/01/2023 On What Date Was Tobacco Cessation Counseling Provided? 05/14/2024 [email or web address] Information not available 05/14/2024 Do You Or [...] trivalent, PF 07/09/[address], [place], [address], [facility] 07/09/2024 11:46:08 COVID-19, mRNA, LNP-S, PF, angie-sucrose, 30 mcg/0.3 mL 07/09/[address], [facility] [address], [facility] 07/09/2024 11:46:08 Tdap 07/09/[address], [facility] [address], [facility] 07/09/2024 11:46:08 Past Encounters Encounter ID Performer Location Encounter Start Date Encounter Closed Date Diagnosis/Indication Diagnosis SNOMED-CT Code Diagnosis ICD10 Code [id number] NEELAM GAMBOA, [facility] [address] [place] [address] 11/01/2023 11:23:08 11/01/2023 12:27:22 Pain of left shoulder region 8260601145 M25.512 prison current use of non-steroidal anti-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 2983578713 58840 Z79.1 Elevated blood-pressure reading without diagnosis of hypertension 771661146 R03.0 Cough 32907657 R05.9 [id number] MARIAM FANG [facility] [address] [place] [address] 12/11/2023 09:48:55 12/11/2023 11:47:56 Poor short-term memory 816366744 R41.3 History of coronary artery bypass grafting 644275332 Z95.1 Essential hypertension 20166203 I10 Diabetes m ellitus screening 172373944 Z13.1 Hyperlipid emia screening 744603737 Z13.220 Adjustment disorder with depressed mood 11181225 F43.21 Tobacco de pendence caused by cigarettes 1971927210 1973792 F17.947 [id number] MARIAM FANG [facility] [address] [place] [address] 01/28/2024 12:55:09 01/28/2024 14:09:34 Unexplained weight loss 208015656 R63.4 Chronic cough 60247332 R 05.3 Pain of le ft shoulder joint 7608795552 6335778 M25.512 Hyperlipidemia 83832487 E78.5 Chronic ob structive pulmonary disease 44530992 J44.9 Lacunar infarction 14926 8000 I63.81 Bradycardia 44309861 R00 .1 [id number] MARIAM FANG [facility] [address] [place] [address] 03/29/2024 11:20:50 03/29/2024 12:12:54 Tobacco dependence caused by cigarettes 4077082047 1346711 F17.210 Pulmonary emphysema 8743 3001 J43.9 Lacunar infarction 04054 8000 I63.81 Normal bod y mass index 79883383 Z68.20 Essential hypertension 25065414 I10 [id number] ISATU ZAMORA PA-C [address] [place] [address] 05/14/2024 18:33:21 05/14/2024 21:16:51 Pyuria 5402769 R82.81 [id number] MARIAM FANG [facility] [address] [place] [address] 07/09/2024 09:29:21 07/09/2024 10:24:04 Right sided cerebral hemisphere cerebrovascular accident 498353504 I63.9 Hypokalemia 09761725 E87 .6 Essential hypertension 00467252 I10 Sundowning 533484398 F05 Loose stool 145297798 R1 9.5 Unsteady when walking 22 750245 R26.89 Decreased diastolic arterial pressure 20727397 R03.1 Active or passive immunization 303030225 Z23 Health Concerns Section Related Observation LastModified by Organization Detai ls LastModified Time None Recorded Concern Status LastModified by Organization Details LastModified Time None Recorded Advance Directives Directive None Recorded Payers Encounter Date Sequence Insurance Name Policy Number Policy Nicole Covered Member ID Nicole Member ID Guarantor Name 12/11/2023 2 [employer] [facility] (MEDICAID) eJnnifer Archer [id number] Jennifer Archer 12/11/2023 1 [place] [employer] Jennifer Archer [id number] Jennifer Archer 01/28/2024 2 [employer] [place] ([employer]ICAID) Jennifer De La Torreer [id number] Jennifer Archer 01/28/2024 1 [place] [employer] Jennifer Archer [id number] Jennifer Archer 03/29/2024 2 [employer] [facility] (MEDICAID) Jennifer De La Torreer [id number] Jennifer Russousiiva 03/29/2024 1 [place] [employer] Jennifer Archer [id number] Jennifer Archer 05/14/2024 2 [facility] [facility] (MEDICAID) Jennifer De La Torreer [id number] Jennifer Russousiiva 05/14/2024 1 [place] [employer] Jennifer Archer [id number] Jennifer Archer 07/09/2024 2 [facility] (MEDICAID) Jennifer Archer [id number] Jennifer De La Torreiva 07/09/2024 1 [place] [employer] Jennifer Archer [id number] Jennifer Archer Notes Date Note Type Note Provider Name and Address Organization Details Recorded Time 12/11/2023 text/html HPI Notes: Pt., 73-F, new to practice, has not had any regular primary care in recent times, seen at Urgent care EDrecently with Mabel outbreak, treated with Valacyclovir, here to establish care. Elevated Glucose. Glucose noted to be 125 on 10/2023 labs drawn at ED. The following history is taken from 11/01/2023 visit with Neelam Gamboa Trinastella: Had out break 06/2023 and seen at [facility] tx. w/Acyclovir. Patient is current daily smoker, [...] This occurred when she was living in [place], [place], and was seen at a local [...] memory concerns. MARIAM FANG [address], [place], [address], [facility]. 12/11/2023 12:27:14 01/28/2024 text/html HPI Notes: Pt, 7 3-F, here for f/u after brain imaging revealed an there is also a singular tiny focus of restricted diffusion in the left periventricular white matter consistent with acute lacunar infarct, nonhemorrhagic. from 01/19/2024. Donna her supervisor of way, reports that her balance is not too [...] improved w/Ventolin. MARIAM FANG [address], [place], [address], [facility]. 01/28/2024 18:42:01 03/29/2024 text/html HPI Notes: Pt. [...] to emphysema present. No malignancy. [address]IAM [address], [place], [address], [facility]. 03/29/2024 12:38:37 05/14/2024 text/html HPI Notes: I [...] clear at this time. [address], [place], [address], [facility]. 05/15/2024 13:54:05 07/09/2024 text/html HPI Notes: Pt, 7 4-F, here for MARIAH after d/c from [facility] 06/17/2024 for Subacute right occipital CVA, [...] pressure today. MARIAM FANG [address], [place], [address], [facility]. 07/09/2024 11:48:31 OBGyn Episode No OBEpisode recorded.
--- OUTSIDE RECORDS SUMMARY | 2024-07-16 13:16 | XMS_ITS | Continuity of Care Document ---
Author Organization [place] [email or web address], [facility] Address [address] [place] [address] [address] [place] [address] Assessment No assessment recorded. Plan of Treatment Reminders Order Date Submit Date Provider Last Modified By Organization Details Last Modified Time Details Appointments Follow Up 30 2023 08:30A M Eduardo Fatou Not available Not available Not available Annual Wellness Exam 40 2024 02:30P M Eduardo Fatou Not available Not available Not available Lab culture, urine + sensitivi ty 2023 024 [facility] (Registration ), [address] [place] [address] [place], [address], 05/17/2024 08:14:58 microscop ic method, urine 2023 024 [facility] (Registration ), [address] [place] [address] [place], [address], 05/15/2024 08:48:21 urinalysi s, dipstick 2023 024 [email or web address] [facility], [address] [place] [address], [address], [place], [address], 05/14/2024 20:40:44 Referral None recorded. Procedures None recorded. Surgeries None recorded. Imaging None recorded. Medication Orders cefuroxim e axetil 250 mg tablet 2023 024 [email or web address] [facility], [address] [place], [address], 07/01/2024 11:35:09 cefuroxim e axetil 250 mg tablet 2023 024 [email or web address] Not available 07/01/2024 11:35:09 Patient TargetsNo targets recorded. Patient Instructions Encounter Date Encounter Id Patient Instructions Last Modified By Organization Details Last Modified Time 05/14/2024 [id number] 1. I am concerne d that her symptoms may be related to a urinary tract infection thus I have gone ahead and given her her first tablet of antibiotic tonight and the remaining doses were sent to the [facility] in [place]. She will take this medication morning and [...] Referral Home Health Referral for Med ical protective services social worker involved Requires SN in the home following d/c from [facility] for Right intraparenchymal CVA Referring Physician: Maximo Lainez, Family Medicine, Encounter Date: 07/05/2024 Electrical Wirer Referral for edical protective services social worker involved DROSS SKIMMER requested to assist patient and caregiver in transition home following CVA. Referring Physician: Maximo Lainez Family Medicine, Encounter Date: 07/05/2024 Results Created Date Observation Date Name Description Value Unit Range Abnormal Flag Note LastModifiedBy Organization Detail LastModifiedTime 05/14/20 24 05/14/2024 urina lysis , dipst ick Leukocytes Trace Not Available [address], [place], [address], 05/14/2024 20:24:45 05/14/20 24 05/14/2024 urina lysis , dipst ick Nitrite negati ve Not Available [address], [place], [address], 05/14/2024 20:24:45 05/14/20 24 05/14/2024 urina lysis , dipst ick Urobilinogen .2 Not Available [address], [place], [address], 05/14/2024 20:24:45 05/14/20 24 05/14/2024 urina lysis , dipst ick Protein 100 Not Available [address], [place], [address], 05/14/2024 20:24:45 05/14/20 24 05/14/2024 urina lysis , dipst ick pH 5.0 Not Available [address] [address], [place], [address], 05/14/2024 20:24:45 05/14/20 24 05/14/2024 urina lysis , dipst ick Blood Negati ve Not Available [address], [place], [address], 05/14/2024 20:24:45 05/14/20 24 05/14/2024 urina lysis , dipst ick Specific Eden 1.015 Not Available [address], [place], [address], 05/14/2024 20:24:45 05/14/20 24 05/14/2024 urina lysis , dipst ick Ketone Trace Not Available [address] [address], [place], [address], 05/14/2024 20:24:45 05/14/20 24 05/14/2024 urina lysis , dipst ick Bilirubin Small Not Available [address], [place], [address], 05/14/2024 20:24:45 05/14/20 24 05/14/2024 urina lysis , dipst ick Glucose Negati ve Not Available [address], [place], [address], 05/14/2024 20:24:45 05/14/20 24 05/14/2024 urina lysis , dipst ick Appearance Clear Not Available [address], [place], [address], 05/14/2024 20:24:45 05/14/20 24 05/14/2024 urina lysis , dipst ick Color Dark Yellow Not Available [address], [place], [address], 05/14/2024 20:24:45 06/12/20 24 06/12/2024 x-ray imagi ng repor t Obdulia t Name: Martha Payton Unit #: [id number] Loc: ER Orderi ng [facility] er: Enid Correa M.D. Accoun t #: [id number] Status : REG ER Primar y Care [facility] er: Yulissa Lainez Date of Exam: [...] ------ ------ ------ - Dictat ed By: Adne Johnston M.D. 1828 Transc ribed By: Vickie [...] the addres s above. Thank- you. INTERFACE [facility] [address], [place], [address] 06/12/2024 18:34:32 06/12/20 24 06/12/2024 x-ray imagi ng ofelia wilde Name: Martha Payton Unit #: [id number] Loc: ER Orderi ng Provid er: Enid Correa M.D. Accoun t #: [id number] Status : REG ER Primar y [...] the addres s above. Thank- you. INTERFACE [facility] [address], [place], [address] 06/12/2024 18:34:33 06/12/20 24 06/12/2024 CT imagi ng repor t Patikatie t Name: Martha Payton Unit #: [id number] Loc: ER Orderi ng Provid er: Enid Correa M.D. Accoun t #: [id number] Status : REG ER Primar y [...] the addres s above. Thank- you. INTERFACE [address] [place], [address] 06/12/2024 18:43:33 06/12/20 24 06/12/2024 vrad ofelia t Obdulia t Name: Martha Payton Unit #: [id number] Loc: ER Orderi ng Provid er: Accoun t #: [id number] Status : REG ER Primar y [...] FINDIN GS: ANTERI OR CIRCUL ATION: Right internist al caroti d artery : Calcif ied plaque with severe stenos is cavern ous right ICA. Right middle cerebr al artery : Modera te to severe stenos is manager mall ior M3 branch right MCA. No signif icant stenos is remain lien of the right MCA. Right anteri or cerebr al artery : No occlus ion or signif icant stenos is. No aneury sm. Left internist al caroti d artery : Calcif ied plaque with modera te stenos is cavern ous left ICA. Left middle cerebr al artery : No occlus ion or signif icant stenos is. No aneury sm. Left anteri or cerebr al artery : No occlus ion or signif icant stenos is. No aneury sm. 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 No aneury sm. Left verteb ral artery : No occlus ion or signif icant stenos is. No aneury sm. Basila r artery : No occlus ion or signif icant stenos is. No aneury sm. Right manager mall ior cerebr al artery : No occlus ion or signif icant stenos is. No aneury sm. Left manager mall ior cerebr al artery : No occlus ion or signif icant stenos is. No aneury sm. HEAD: Brain: Stable right manager mall ior fronta l and pariet al infarc [...] rkable . IMPRES NATASHA: 1. Stable right manager mall ior fronta l and pariet al infarc t. 2. 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 3. Calcif ied plaque with modera te stenos is cavern ous left ICA. 4. Modera te to severe stenos is manager mall ior M3 branch right MCA. ASSESS MENT: [...] No dissec tion or occlus ion. Right internist al caroti d artery : No stenos is of the extrac ranial segmen t. No dissec tion or occlus ion. Right log pond worker al caroti d artery : No occlus ion or stenos is of the origin . Left common caroti d artery : No stenos is. No dissec tion or occlus ion. Left internist al caroti d artery : No stenos is of the extrac ranial segmen t. No dissec tion or occlus ion. Left log pond worker al caroti d artery : No occlus [...] the cervic al segmen t of the internist al caroti d artery is based on NASCET criter ia. Normal is no stenos is. Mild is less than 50% stenos is. Modera te is 50-69% stenos is. Severe is 70% to 99% stenos is. Total occlus ion is no detect able patent lumen. Dictat ed and Daphnie sanchez d by: Abelardo Nagel MD. Thania ng:P.D ISST Shelby pina MD Access ion#=[id number] Gin d By: CC: ------ ------ [...] at the addres s above. Thank- you. [facility] [address] [place], [address] 06/15/2024 15:45:36 06/13/20 24 06/13/2024 vrad repor t Patikatie t Name: Martha Payton Unit #: [id number] Loc: MS Thania barrios Provid er: Accoun t #: [id number] Status : ADM IN Primar y [...] MD. Orderi ng:Peyton Zhou MD Access ion#=[id number] Ordere d By: CC: ------ ------ [...] at the addres s above. Thank- you. [email or web address] [facility] [address] [place], [address] 06/15/2024 15:45:36 06/13/2006/13/2024 CT imagi ng repor t Patikatie t Name: Martha Payton Unit #: [id number] Loc: Orderi ng Provid er: Enid Correa M.D. Accoun t #: [id number] Status : ADM IN Primar y [...] right side there is calcif ied plaque manager mall iorly at the caroti d bulb-b ifurca tion level and there is also calcif ied plaque on the medial and manager mall ior saldaña of the proxim al right ICA. Amount of stenos is at this level is estima liz at approx imatel y 40 percen t in the proxim al right ICA. The right ICA is nicely patent in the upper neck. Left caroti d bulb exhibi ts some calcif ied plaque anteri sherry. There is calcif ied plaque on the manager mall ior wall the proxim al left ICA. Approx imatel y 30 percen t stenos is at this level. There is also self like plaque at the origin left ICA with more promin ent stenos is at this level, approx imatel y 70 percen t. Left ICA in the upper neck is patent . Benzene Operator ior circul ation: Both verteb ral [...] Brain W: Anteri or circul ation: Both internist al caroti d arteri es are patent in the skull base-c arotid canals . Both intra cavern ous internist al caroti d arteri es are periph erally calcif ied. There is a signif icant focal stenos is at the juncti on of the intra cavern ous and suprac linoid aspect of the right internist al caroti d artery with approx imatel [...] or commun icatin g artery . Left manager mall ior cerebr al artery is patent withou t signif icant stenos is. There is mild-m oderat e narrow ing in the proxim al right middle cerebr al artery . No intral uminal thromb us seen. No aneury sms. No dissec tion flaps. Benzene Operator ior circul ation: The basila r artery ascend s in the midlin e. Distal ly it gives off patent right manager mall ior cerebr al artery althou gh there is a modera te stenos is in the manager mall ior cerebr al artery a few cm distal to its origin . The left manager mall ior cerebr al artery is predom inantl y fed by a manager mall ior commun icatin g artery on the left side of the [place]. This that There is no eviden ce of aneury sm at the tip of the basila r artery nor elsewh ere in the n[place]ol[place] ll[place]. CT BRAIN: Again noted is [...] facili ty are submit liz to the [facility] Radiol ogy Data Regist ry (NRDR) Dose [...] the addres s above. Thank- you. INTERFACE [facility] [address] [place], [address] 06/13/2024 15:50:13 06/13/20 24 06/13/2024 CT imagi ng repor t Patikatie t Name: Martha Payton Unit #: [id number] Loc: MS Thania barrios Provid er: Sanjana jianenid,Da vid Accoun t #: [id number] Status : ADM IN Primar [...] the addres s above. Thank- you. INTERFACE [facility] [address] [place] [address] [place], [address] 06/13/2024 16:16:16 06/14/20 24 06/14/2024 MRI imagi ng repor t Patien t Name: Martha Payton Unit #: [id number] Loc: MS Orderi ng Provid er: Sanjana cornel,Da ca Accisael t #: [id number] Status : ADM IN Primar [...] DATA REPOSI TORY: Ordere d By: Jabari Bsutamante CC: ------ ------ ------ ------ ------ ------ [...] the addres s above. Thank- you. INTERFACE [facility] [address] [place], [address] 06/14/2024 12:37:22 06/14/20 24 06/14/2024 ultra sound imagi ng repor t Patien t Name: Martha Payton Unit #: [id number] Loc: MS Orderi ng Provid er: Jabari Bustamante Accoun t #: [id number] Status : ADM IN Primar [...] the addres s above. Thank- you. INTERFACE [facility] [address] , [place], [address] 06/14/2024 15:22:54 Result Notes None recorded. Problems Name Problem SNOMED Code Status Onset Date Resolution Date Notes Provider Name and Address Organization Details Recorded Time Poor short-term memory 750693591 Active [address], [place], [address] , [facility] 4 10:28:13 Essential hypertensi on 83318293 Active [address], [place], [address] [place] [address] 4 10:29:23 Blood glucose outside reference range 789447711 Active [address], [place], [address], [facility] 4 10:30:43 Iritis 77135465 Active [address], [place], [address], [facility] 4 10:31:43 Tobacco dependence caused by cigarettes 829257288312 12976 Active [address], [place], [address], [facility] 4 12:23:42 Adjustment disorder with depressed mood 11767021 Active [address], [place], [address], [facility] 4 12:26:28 Prediabete s 726387595 Active 2023 5.7% on [address], [place], [address], [facility] 4 07:52:17 History of coronary artery bypass grafting 601347016 Active 2009 In 2009 per prior med recs [address], [place], [address], [facility] 4 14:53:13 Unexplaine d weight loss 602327736 Active [address], [place], [address], [facility] 4 13:43:55 Chronic cough 72354184 Active [address], [place], [address], [facility] 4 13:44:00 Pain of left shoulder joint 024240158481 30354 Active [address], [place], [address], [facility] 13:44:16 Hyperlipid emia 92908936 Active [address], [place], [address], [facility] 13:48:11 Chronic obstructiv e pulmonary disease 85505338 Active [address], [place], [address], [facility] 13:49:36 Lacunar infarction 064265629 Active [address], [place], [address], [facility] 18:17:27 Bradycardi a 35142793 Active [address], [place], [address], [facility] 18:36:12 Chronic kidney disease stage 3B 855980364 Active 2023 NOted in 1 Note in prior MR as stage 3 D/T HTN. Plan to control BP as care plan. 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 223240319 Active [address], [place], [address], [facility] 08:09:53 Hypokalemi a 24376663 Active [address], [place], [address], [facility] 08:10:59 Sundowning 441156435 Active [address], [place], [address], [facility] 08:12:54 Loose stool 096151832 Active [address], [place], [address], [facility] 09:45:26 Unsteady when walking 69163039 Active [address], [place], [address], [facility] 4 10:02:59 Decreased diastolic arterial pressure 93855647 Active 2023 [address], [place], [address], [facility] 4 10:04:18 Problem Notes None recorded. Medical Equipment None Reported. Allergies Allergen ID Allergen Name Allergen Category Reaction Reaction Severity Criticality Documentation Date Start Date Code Code System Note Provider Name and Address Organization Details Recorded Time 16071 chlorthal idone medicatio n Not available Not available [facility] 01/28/2024 2409 RxNorm [address], [place], [address], [facility] 17:56:24 87879 hydrochlo rothiazid e medicatio n Not available Not available [facility] 01/28/[address], [place], [address] , [facility] 4 17:56:38 Medications Name Sig Start Date Stop Date Status Note LastModified by Organization Details LastModified Time losartan 50 mg tablet Take 1 tablet twice a day by oral route as directed . 2023 active Per [facility] EMR Not Available Not Available Not Available quetiapin e 25 mg tablet 1 tablet by mouth each night 2023 active Not Available Not Available Not Avai lable atorvasta tin 80 mg tablet Take 1 tablet every day by oral route at bedtime. 2023 active updated from [employer] EMR Not Available Not Available Not Available [...] route as directed . 2023 active per [employer] EMR Not Available Not Available Not Available [...] as directed . 2023 active Updated from [employer] EMR Not Available Not Available Not Available [...] route as directed . 2023 active Per [employer] [facility] EMR Not Available Not Available Not Available [...] Last Updated DateTime 147.32 cm 20.5 kg/m2 63275.4 5 g 98.1 [degF] 99 % 99 % 62 /min 18 /min 195 mm[Hg] 63 mm[Hg] 211 mm[Hg] 102 mm[Hg] 210 mm[Hg] 75 mm[Hg] 199 mm[Hg] 66 mm[Hg] Keesha Zaragoza MA [facility] 21:02:19 Social History Question Answer Notes LastModified by Organizat ion Details LastModified Time Tobacco Smoking Status Current Every Day Smoker Kylah Almonte MA [facility], [facility] 11/01/2023 11:33:08 Would You Say That, In [...] Much Tobacco Do You Smoke? 0.5 PPD [email or web address] Information not available 05/14/2024 Has Tobacco Cessation Counseling Been Provided? Yes Information not available 11/01/2023 On What Date Was Tobacco Cessation Counseling Provided? 05/14/2024 Information not available 05/14/2024 Do You Or [...] 07/09/2024 completed [address], [place], [address], [facility] 07/09/2024 11:46:08 COVID-19, mRNA, LNP-S, PF, angie-sucrose, 30 mcg/0.3 mL 07/09/[address], [facility] [address], [facility] 07/09/2024 11:46:08 Tdap 07/09/[address], [facility] [address] 07/09/2024 11:46:08 Past Encounters Encounter ID Performer Location Encounter Start Date Encounter Closed Date Diagnosis/Indication Diagnosis SNOMED-CT Code Diagnosis ICD10 Code [id number] ISATU ZAMORA PA-C [address] [place] [address] 05/14/2024 18:33:21 05/14/2024 21:16:51 Pyuria 0759428 R82.81 Health Concerns Section Related Observation LastModified by Organization Detai ls LastModified Time None Recorded Concern Status LastModified by Organization Details LastModified Time None Recorded Payers Encounter Date Sequence Insurance Name Policy Number Policy Nicole Covered Member ID Nicole Member ID Guarantor Name 05/14/2024 2 [facility] (MEDICAID) Jennifer Archer [id number] Jennifer Archer 05/14/2024 1 [place] [employer] Jennifer Archer [id number] Jennifer Archer Notes Date Note Type [...] time. ISATU ZAMORA PA-C [address], [place], [address], [facility]. 05/15/2024 13:54:05 OBGyn Episode No OBEpisode recorded.
--- OUTSIDE RECORDS SUMMARY | 2024-07-16 13:16 | XMS_ITS | Clinical Summary ---
Author Organization [facility] Address [address] [place] [address] Care Team Providers Care Landfill Attendant Name Role Phone Unavailable Primary Care [...]
--- OUTSIDE RECORDS SUMMARY | 2024-07-16 13:16 | XMS_ITS | Encounter Summary ---
Author Organization Health system Address [address] [place] [address] Care Team Providers Care Tailings Dam Pumper Name Role Phone Unavailable Primary Care Provider Unavailabl e Encounter Details Date Type Department Care Team (Late st Contact Info) Description 12/11/2023 Lab Requisition [facility] Pathology & Laboratory Medicine - [facility] [address] [place] [address] Outr Resulting Lab, Provider Social History Tobacco [...] 4th Generation Negative Negative 12/12/2023 12:15 EDT [facility] Comment:If acute HIV-1 infec tion is suspected in a high risk patient, submit plasma specimen for HIV-1 RNA quantitation test. Blood VENOUS BLOOD / Unknown 12/11/2023 11:00 EDT 12/11/2023 21:23 EDT Narrative [facility] - 12/12/2023 12:15 EDT Fourth Generation assay performed on the Siemens Centaur XPT. Provider Outr Resulting Lab IMMUNOLOGY A ND SEROLOGY ORDERABLES [facility] [address] [place] [address] documented in this encounter Visit Diagnoses Not on filedocumented in this encounter
--- OUTSIDE RECORDS SUMMARY | 2024-07-16 13:16 | XMS_ITS | Encounter Summary ---
Author Organization [facility] Address [address] [place] [address] Care Team Providers Care Body Welder Name Role Phone Unavailable Primary Care Provider Unavailabl e Encounter Details Date Type Department Care Team (Late st Contact Info) Description 12/11/2023 Lab Requisition [facility] Pathology & Laboratory Medicine - [facility] [address] [place] [address] Outr Resulting Lab, Provider Social History Tobacco [...] Syphilis Serology Negative Negative 12/12/2023 11:48 EDT [facility] Blood VENOUS BLOOD / Unknown 12/11/2023 11:00 EDT 12/11/2023 21:23 EDT Provider Outr Resulting Lab IMMUNOLOGY A ND SEROLOGY ORDERABLES [facility] [address] [place], [place] [id number] documented in this encounter Visit Diagnoses Not on filedocumented in this encounter
--- OUTSIDE RECORDS SUMMARY | 2024-07-16 13:16 | XMS_ITS | Referral Summary ---
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
--- OUTSIDE RECORDS SUMMARY | 2024-07-16 13:16 | XMS_ITS | Continuity of Care Document ---
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 For Annual in September: Consider DEXA/risk factors of former smoker: Mammography: Life expectancy < 10 years, especially given recent stroke and advancing dementia, won't recommend future mammograms unless symptomatic. - Advanced Directive not on file [email or web address] Not available 07/09/2024 11:48:19 Plan of Treatment Reminders Order Date Submit Date Provider Last Modified By Organization Details Last Modified Time Details Appointments Follow Up 30 2023 08:30A M Eduardo Lainez Not available Not available Not available Annual Wellness Exam 40 2024 02:30P M Eduardo Fatou Not available Not available Not available Lab CBC w/ auto diff 2023 [facility] (Registration ), [address] [place] [address] [place], [address], 07/09/2024 16:14:29 BMP, serum or plasma 2023 024 [facility] (Registration ), [address] [place] [address] [place], [address], 07/16/2024 04:23:39 magnesium , serum or plasma 2023 024 [facility] (Registration ), [address] [place] [address] [place], [address], 07/16/2024 04:23:39 Referral None recorded. Procedures None recorded. Surgeries None recorded. Imaging None recorded. Medication Orders psyllium husk 0.4 gram capsule 2023 [id number], [address], [place], [phone], 07/09/2024 11:47:17 trazodone 50 mg tablet 2023 [facility] #[id number], [address], [place], [phone], 07/09/2024 11:47:17 Patient TargetsNo targets recorded. Patient Instructions Encounter Date Encounter Id Patient Instructions Last Modified By Organization Details Last Modified Time 07/09/2024 [id number] Keep the environment dark during the night [...] does not resolve. 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 Referring Physician: Maximo Lainez Family Medicine, Encounter Date: 07/05/2024 Results Created Date Observation Date Name Description Value Unit Range Abnormal Flag Note LastModifiedBy Organization Detail LastModifiedTime 06/12/20 24 06/12/2024 x-ray imagi ng repor t Obdulia t Name: Martha Payton Unit #: [id number] Loc: ER Orderi ng Provid er: Lacho Correa M.D. t #: [id number] Status : REG ER Primar y Care [facility] er: Yulissa Lainez Date of Exam: [...] the addres s above. Thank- you. INTERFACE [place] [address] [facility] [place], [address] 06/12/2024 18:34:32 06/12/20 24 06/12/2024 x-ray imagi ng repor t Patien t Name: Martha Payton Unit #: [id number] Loc: ER Orderi ng Provid er: Lacho Correa M.D. Accoun t #: [id number] Status : REG ER Primar y [...] error, please notify us immedi ately at [phone] and return the origin al report to us at the addres s above. Thank- you. INTERFACE [address] [place], [address] 06/12/2024 18:34:33 06/12/2006/12/2024 CT imagi ng repor t Patien t Name: Martha Payton Unit #: [id number] Loc: ER Orderi ng Provid er: Lacho Correa M.D. Accoun t #: [id number] Status : REG ER Primar y [...] facili ty are submit liz to the [facility] al Radiol ogy Data Regist ry (NRDR) [...] Johnston M.D. 1837 Transc ribed By: Vickie RDORIGUEZ,Yessenia gardner 1837 This is privil eged, confid [...] the addres s above. Thank- you. INTERFACE [place] [address] [facility] [place], [address] 06/12/2024 18:43:33 06/12/2006/12/2024 vrad repor t Patien t Name: Martha Payton Unit #: [id number] Loc: ER Orderi ng Provid er: Accoun t #: [id number] Status : REG ER Primar y [...] ented. COMPAR JA: MR ANGIO BRAIN WO 1:09 PM FINDIN GS: ANTERI OR CIRCUL ATION: Right risk management internship al caroti d artery : Calcif ied plaque with severe stenos is cavern ous right ICA. Right middle cerebr al artery : Modera te to severe stenos is artist color separation ior M3 branch right MCA. No signif icant stenos is remain lien of the right MCA. Right anteri or cerebr al artery : No occlus ion or signif icant stenos is. No aneury sm. Left risk management internship al caroti d artery : Calcif ied plaque with modera te stenos is cavern ous left ICA. Left middle cerebr al artery : No occlus ion or signif icant stenos is. No aneury sm. Left anteri or cerebr al artery : No occlus ion or signif icant stenos is. No aneury sm. BAG MACHINE HELPER IOR CIRCUL ATION: Right verteb ral artery : No occlus ion or signif icant stenos is. No aneury sm. Left verteb ral artery : No occlus ion or signif icant stenos is. No aneury sm. Basila r artery : No occlus ion or signif icant stenos is. No aneury sm. Right artist color separation ior cerebr al artery : No occlus ion or signif icant stenos is. No aneury sm. Left artist color separation ior cerebr al artery : No occlus ion or signif icant stenos is. No aneury sm. HEAD: Brain: Stable right artist color separation ior fronta l and pariet al infarc [...] rkable . IMPRES NATASHA: 1. Stable right artist color separation ior fronta l and pariet al infarc t. 2. 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 3. Calcif ied plaque with modera te stenos is cavern ous left ICA. 4. Modera te to severe stenos is artist color separation ior M3 branch right MCA. ASSESS MENT: [...] No dissec tion or occlus ion. Right risk management internship al caroti d artery : No stenos is of the extrac ranial segmen t. No dissec tion or occlus ion. Right event technician al caroti d artery : No occlus ion or stenos is of the origin . Left common caroti d artery : No stenos is. No dissec tion or occlus ion. Left risk management internship al caroti d artery : No stenos is of the extrac ranial segmen t. No dissec tion or occlus ion. Left event technician al caroti d artery : No [...] the cervic al segmen t of the risk management internship al caroti d artery is based on NASCET criter ia. Normal is no stenos is. Mild is less than 50% stenos is. Modera te is 50-69% stenos is. Severe is 70% to 99% stenos is. Total occlus ion is no detect able patent lumen. Dictat ed and Daphnie sanchez d by: Abelardo Nagel MD. Thania ng:Ivet BURNST Shelby pina MD Access ion#=[id number] Gin torres By: CC: ------ ------ [...] at the addres s above. Thank- you. [email or web address] [facility] [address] [place], [address] 06/15/2024 15:45:36 06/13/20 24 06/13/2024 vrad repor t Patien t Name: Martha Payton Unit #: [id number] Loc: MS Monteiro ng Provid er: Accoun t #: [id number] Status : ADM IN Primar y [...] MD. Orderi ng:Peyton Zhou MD Access ion#=[id number] Ordere d By: CC: ------ ------ [...] at the addres s above. Thank- you. [email or web address] [facility] [address], [place], [address] 06/15/2024 15:45:36 06/13/20 24 06/13/2024 CT imagi ng repor t Patien t Name: Martha Payton Unit #: [id number] Loc: Ordermariola ng Provid er: Lacho Correa M.D. Accoun t #: [id number] Status : ADM IN Primar y [...] right side there is calcif ied plaque artist color separation iorly at the caroti d bulb-b ifurca tion level and there is also calcif ied plaque on the medial and artist color separation ior saldaña of the proxim al right ICA. Amount of stenos is at this level is estima liz at approx imatel y 40 percen t in the proxim al right ICA. The right ICA is nicely patent in the upper neck. Left caroti d bulb exhibi ts some calcif ied plaque anteri sherry. There is calcif ied plaque on the artist color separation ior wall the proxim al left ICA. Approx imatel y 30 percen t stenos is at this level. There is also self like plaque at the origin left ICA with more promin ent stenos is at this level, approx imatel y 70 percen t. Left ICA in the upper neck is patent . Grazing Aide ior circul ation: Both verteb ral arteri [...] Brain W: Anteri or circul ation: Both risk management internship al caroti d arteri es are patent in the skull base-c arotid canals . Both intra cavern ous risk management internship al caroti d arteri es are periph erally calcif ied. There is a signif icant focal stenos is at the juncti on of the intra cavern ous and suprac linoid aspect of the right risk management internship al caroti d artery with approx [...] or commun icatin g artery . Left artist color separation ior cerebr al artery is patent withou t signif icant stenos is. There is mild-m oderat e narrow ing in the proxim al right middle cerebr al artery . No intral uminal thromb us seen. No aneury sms. No dissec tion flaps. Grazing Aide ior circul ation: The basila r artery ascend s in the midlin e. Distal ly it gives off patent right artist color separation ior cerebr al artery althou gh there is a modera te stenos is in the artist color separation ior cerebr al artery a few cm distal to its origin . The left artist color separation ior cerebr al artery is predom inantl y fed by a artist color separation ior commun icatin g artery on the left side of the [facility]. This that There is no eviden ce of aneury sm at the tip of the basila r artery nor elsewh ere in the [facility] BRAIN: Again noted is [...] exhibi ting multip le stenos es. Nevert heldebbie , does contri bute to the format [...] error, please notify us immedi ately at [phone] and return the origin al report to us at the addres s above. Thank- you. INTERFACE [facility] [address], [place], [address] 06/13/2024 15:50:13 06/13/20 24 06/13/2024 CT imagi ng repor t Patikatie t Name: Martha Payton Unit #: [id number] Loc: Ordermariola ng Provid er: Jabari Bustamante Accisael t #: [id number] Status : ADM IN Primar y [facility] er: Yulissa Lainez Date of Exam: 05/24 [...] facili ty are submit liz to the [facility] al Radiol ogy Data Regist ry (NRDR) [...] the addres s above. Thank- you. INTERFACE [place] [address], [place], [address] 06/13/2024 16:16:16 06/14/20 24 06/14/2024 MRI imagi ng repor t Obdulia t Name: Martha Payton Unit #: [id number] Loc: Orderi ng Provid er: Jabari Bustamante Accoun t #: [id number] Status : ADM IN Primar [...] Dictat ed By: Satinder Odonnell M.D. 1223 122 Transc ribed By: Satinder Odonnell 1223 This is privil eged, confid ential inform ation intend ed only for the provid er named. Any use or distri bution by any person other than this provid er is strict ly prohib ited. If you receiv e this report in error, please notify us immedi michellely at [phone] and return the origin al report to us at the addres s above. Thank- you. INTERFACE [facility] [address], [place], [address] 06/14/2024 12:37:22 06/14/20 24 06/14/2024 ultra sound imagi ng repor t Obdulia t Name: Martha Payton Unit #: [id number] Loc: MS Monteiro ng Provid er: Alexsanderfranklin cornel,Jabari lemond Accoun t #: [id number] Status : ADM IN Primar [...] 28.8 mmHg. Pulmon ic Valve The pulmon loman valve is normal in struct ure. There [...] the addres s above. Thank- you. INTERFACE [address] , [place], [address] 06/14/2024 15:22:54 Result Notes None recorded. Problems Name Problem SNOMED Code Status Onset Date Resolution Date Notes Provider Name and Address Organization Details Recorded Time Poor short-term memory 614904193 Active [address], [place], [address], [facility] 4 10:28:13 Essential hypertensi on 11290657 Active [address], [place], [address], [facility] 4 10:29:23 Blood glucose outside reference range 232977284 Active [address], [place], [address], [facility] 4 10:30:43 Iritis 25874673 Active [address], [place], [address], [facility] 4 10:31:43 Tobacco dependence caused by cigarettes 508457913614 18037 Active [address], [place], [address], [facility] 4 12:23:42 Adjustment disorder with depressed mood 11233469 Active [address], [place], [address], [facility] 4 12:26:28 Prediabete s 312923904 Active 2023 5.7% on [address], [place], [address], [facility] 4 07:52:17 History of coronary artery bypass grafting 195686475 Active 2009 In 2009 per prior med recs [address], [place], [address] , [facility] 14:53:13 Unexplaine d weight loss 690584062 Active [address], [place], [address], [facility] 13:43:55 Chronic cough 09843599 Active [address], [place], [address], [facility] 13:44:00 Pain of left shoulder joint 415975711808 55191 Active [address], [place], [address], [facility] 13:44:16 Hyperlipid emia 07115945 Active [address], [place], [address], [facility] 13:48:11 Chronic obstructiv e pulmonary disease 20943165 Active [address], [place], [address] , [facility] 13:49:36 Lacunar infarction 013523447 Active [address], [place], [address] , [facility] 18:17:27 Bradycardi a 72670294 Active [address], [facility] [address], [facility] 4 18:36:12 Chronic kidney disease stage 3B 552564153 Active 2023 NOted in 1 Note in prior MR as stage 3 D/T HTN. Plan to control BP as care plan. 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 808441158 Active [address], [place], [address], [facility] 4 08:09:53 Hypokalemi a 02429819 Active [address], [place], [address], [facility] 08:10:59 Sundowning 666744810 Active [address], [place], [address], [facility] 08:12:54 Loose stool 614253694 Active [address], [facility] [address], [facility] 09:45:26 Unsteady when walking 40660104 Active [address], [facility] [address], [facility] 10:02:59 Decreased diastolic arterial pressure 71250812 Active [address], [facility] [address], [facility] 10:04:18 Problem Notes None recorded. Medical Equipment None Reported. Allergies Allergen ID Allergen Name Allergen Category Reaction Reaction Severity Criticality Documentation Date Start Date Code Code System Note Provider Name and Address Organization Details Recorded Time 73155 chlorthal idone medicatio n Not available Not available [facility] 01/28/[address], [place], [address], [facility] 17:56:24 80699 hydrochlo rothiazid e medicatio n Not available Not available [facility] 01/28/[address], [place], [address] , [facility] 17:56:38 Medications Name Sig Start Date Stop Date Status Note LastModified by Organization Details LastModified Time losartan 50 mg tablet Take 1 tablet twice a day by oral route as directed . 2023 [facility] Not Available Not Available Not Available quetiapin e 25 mg tablet 1 tablet by mouth each night 2023 active Not Available Not Available Not Avai lable atorvasta tin 80 mg tablet Take 1 tablet every day by oral route at bedtime. 2023 active updated from [employer] EMR Not Available Not Available Not Available [...] route as directed . 2023 [facility] Not Available Not Available Not [...] as directed . 2023 active Updated from [employer] [facility] Not Available Not Available Not Available aspirin [...] route as directed . [address] [facility] EMR Not Available Not Available Not [...] Last Updated DateTime 147.32 cm 19.9 kg/m2 14963.9 9 g 98.6 [degF] 100 % 100 % 14 /min 70 /min 108 mm[Hg] 48 mm[Hg] SUKHDEV TORIBIO RN [facility] 09:38:14 Social History Question Answer Notes LastModified by Organizat ion Details LastModified Time Tobacco Smoking Status Current Every Day Smoker [place], [facility] 11/01/2023 11:33:08 Would You Say That, In [...] Of Your Most Recent Tobacco Screening? 05/14/2024 [email or web address] Information n ot available 05/14/2024 How Much Tobacco Do You Smoke? 0.5 PPD [email or web address] Information not available 05/14/2024 Has Tobacco Cessation Counseling Been Provided? Yes Information not available 11/01/2023 On What Date Was Tobacco Cessation Counseling Provided? 05/14/2024 [email or web address] Information not available 05/14/2024 Do You Or [...] trivalent, PF 07/09/[address], [facility] [address], [facility] 07/09/2024 11:46:08 COVID-19, mRNA, LNP-S, PF, angie-sucrose, 30 mcg/0.3 mL 07/09/[address], [facility] [address], [facility] 07/09/2024 11:46:08 Tdap 07/09/[address], [facility] [address], [facility] 07/09/2024 11:46:08 Past Encounters Encounter ID Performer Location Encounter Start Date Encounter Closed Date Diagnosis/Indication Diagnosis SNOMED-CT Code Diagnosis ICD10 Code [id number] [address] [facility] [address] [place] [address] 07/09/2024 09:29:21 07/09/2024 10:24:04 Right sided cerebral hemisphere cerebrovascular accident 885557209 I63.9 Hypokalemia 70783485 E87 .6 Essential hypertension 81925202 I10 Sundowning 474687578 F05 Loose stool 392860111 R1 9.5 Unsteady when walking 22 050097 R26.89 Decreased diastolic arterial pressure 82091139 R03.1 Active or passive immunization 013453276 Z23 Health Concerns Section Related Observation LastModified by Organization Detai ls LastModified Time None Recorded Concern Status LastModified by Organization Details LastModified Time None Recorded Payers Encounter Date Sequence Insurance Name Policy Number Policy Nicole Covered Member ID Nicole Member ID Guarantor Name 07/09/2024 2 [facility] (MEDICAID) Jennifer Carnes Suzi [id number] Jennifer Deyvi Archer 07/09/2024 1 MED[place]ARE [place]: [facility] [employer] Jennifer Carnes Suzi [id number] Jennifer Archer Notes Date Note Type Note Provider Name and Address Organization Details Recorded Time 07/09/2024 text/html HPI Notes: Pt, [age]-F, here for MARIAH after d/c from [facility] 06/17/2024 for Subacute right occipital CVA, hypertension. [...] pressure today. MARIAM FANG [address], [place], [address], [facility]. 07/09/2024 11:48:31 OBGyn Episode No OBEpisode recorded.
--- NOTE | 2024-07-16 14:00 | DI.CT_ITS ---
Exam(s) CT HEAD WO EXAM: CT HEAD WO CLINICAL HISTORY: AMS. TECHNIQUE: Imaging Protocol: Axial computed tomography images with coronal and sagittal reformatted images were created and reviewed COMPARISON: CT CT HEAD WO from 06/13/2024 FINDINGS: Ventricles and Extra axial spaces: Normal in size and morphology for the patient's age. Hemorrhage: Please see the below section under cerebral parenchyma. Cerebral parenchyma: There again seen findings of encephalomalacia involving the right parietal supra region consistent with an old infarct. There is a new area of hyperdensity seen within the infarct suggesting some hemorrhage. There are areas of decreased attenuation in the white matter consistent with chronic microvascular ischemic disease. There is an old right basal gangliar lacunar infarct. Midline shift: None. Brainstem/Cerebellum: Normal. Calvarium: Normal. Visualized Paranasal sinuses/Mastoids: Clear. Soft Tissues: Unremarkable. IMPRESSION: 1. Encephalomalacia involving the right parietal occipital lobe consistent with the patient's known i nfarct. There is a new small hyperdense area seen within the infarct consistent with a small acute h emorrhage. 2. Age-related cerebral atrophy and chronic microvascular ischemic disease. 3. Findings were discussed with Crystal Negron at 2:45 p.m. on 07/16/2024. RADIATION DOSE DELIVERED: 875.73mGy.cm Total DLP DATA REPOSITORY: All CT scans at this facility are submitted to the National Radiology Data Registry (NRDR) Dose Index Registry (DIR) with the [employer] (ACR). RADIATION OPTIMIZATION: All CT scans at this facility use at least one of these dose optimization te chniques: automated exposure control; mA and/or kV adjustment per patient size (includes targeted exa ms where dose is matched to clinical indication); or iterative reconstruction.
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
[2024-07-16 14:30] LABS: ALT 26 U/L (14-59); AST 29 U/L (15-37); Albumin 3.4 g/dL (3.4-5.0); Alkaline Phosphatase 112 U/L (46-116); Anion Gap 13.4 mmol/L (3-11); BUN 35 mg/dL (7-18); Bilirubin, Total 0.41 mg/dL (0.2-1.0); CO2 22.6 mmol/L (21.0-32.0); CREATININE 2.1 mg/dL (0.55-1.02); Calcium 9.5 mg/dL (8.5-10.1); Chloride 105 mmol/L (98-107); Estimated GFR 24.27 (mL/min/1.73m2); Glucose 142 mg/dL (74-106); Magnesium 2.1 mg/dL (1.8-2.4); Sodium 141 mmol/L (136-145); Total Protein 7.4 g/dL (6.4-8.2); Troponin I 26 ng/L (<or=51)
[2024-07-16 14:31] LABS: Potassium 2.6 mmol/L (3.5-5.1)
--- NOTE | 2024-07-16 14:44 | DI.RAD_ITS ---
Exam(s) XR CHEST 2V PA LATERAL EXAM: XR CHEST 2V PA LATERAL CLINICAL HISTORY: AMS TECHNIQUE: 2D digital imaging was performed of the chest. Images were obtained. PA and lateral v iews were obtained. COMPARISON: CR XR CHEST 2V PA LATERAL from 06/12/2024 FINDINGS: MEDIASTINUM: Normal. HEART: Normal. The patient is status post CABG. PULMONARY VASCULATURE: Normal. LUNGS: No focal consolidating infiltrates. PLEURAL SPACE: There is a small right pleural effusion. No left pleural effusion. No pneumothorax. BONE:Within normal limits for the patient's age. Sternal wires are in place. OTHER FINDINGS:Normal. IMPRESSION: Small right pleural effusion. Otherwise no acute pulmonary process. DATA REPOSITORY: RADIATION DOSE DELIVERED:
[2024-07-16] MEDS: POTASSIUM CHLORIDE 20 MEQ/100 ML BAG 50 MEQ IV_INF (15:57)
[2024-07-16] MEDS: Potassium Bicarbonate/Cit AC 25 MEQ TABLET.EFF PO (15:57)
[2024-07-16 16:04] LABS: Bilirubin Negative (Negative); Blood Trace-lysed (Negative); Clarity Sl Cloudy (Clear); Glucose Negative (Negative); Ketones Negative (Negative); Leukocyte Esterase Large (Negative); Nitrite Positive (Negative); Urobilinogen 0.2 mg/dL (Up to 0.2)
[2024-07-16 16:13] LABS: Epithelial Cells Few HPF (Negative); Other Cells Negative (Negative); WBC >50 HPF (0-5)
[2024-07-16 16:14] LABS: Bacteria Packed HPF (Negative); C & S Indicated? Yes; Casts Negative LPF (Negative); Crystals Negative HPF (Negative); Mucus Negative (Negative)
--- NOTE | 2024-07-16 16:15 | RT.EKG_ITS ---
APPROVED REPORT Exam: Resting ECG Reason for Exam: hypokalemia Patient Location: E HR:61 bpm ECG Measurements Heart Rate 61 AXIS CO 155 P 84 QRSd 94 QRS 87 QT 438 T 25 QTc 441 Conclusion Incomplete analysis due to missing data in precordial lead(s) Sinus rhythm...normal P axis, V-rate 60- [address] depression, diffuse leads...ST <-0.03mV, ant/lat/inf
[2024-07-16 16:31] LABS: Troponin I 25 ng/L (<or=51)
[2024-07-16] MEDS: cefTRIAXone 1 GM/50 ML BAG IVPB (17:05)
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
[2024-07-16 17:35] LABS: Troponin I 23 ng/L (<or=51)
--- OUTSIDE RECORDS SUMMARY | 2024-07-16 18:13 | XMS_ITS | Encounter Summary ---
Author Organization [facility] Address [address] [place] [address] Care Team Providers Care Sheet Rock Sander Name Role Phone Unavailable Primary Care Provider Unavailabl e Encounter Details Date Type Department Care Team (Late st Contact Info) Description 12/11/2023 Lab Requisition [facility] Pathology & Laboratory Medicine - [facility] [address] [place] [address] Outr Resulting Lab, Provider Social History Tobacco [...] Syphilis Serology Negative Negative 12/12/2023 11:48 EDT [facility] Blood VENOUS BLOOD / Unknown 12/11/2023 11:00 EDT 12/11/2023 21:23 EDT Provider Outr Resulting Lab IMMUNOLOGY A ND SEROLOGY ORDERABLES [facility] [address], [place] [address] documented in this encounter Visit Diagnoses Not on filedocumented in this encounter
--- OUTSIDE RECORDS SUMMARY | 2024-07-16 18:13 | XMS_ITS | Clinical Summary ---
Author Organization [facility] Address [address] [place] [address] Care Team Providers Care Heating Plant Superintendent Name Role Phone Unavailable Primary Care Provider [...]
--- OUTSIDE RECORDS SUMMARY | 2024-07-16 18:13 | XMS_ITS | Referral Summary ---
Author Organization [facility] Address [address] [place] [address] Care Team Providers Care Pulpwood Dealer Name Role Phone Unavailable Primary Care Provider Unavailabl e Social History Tobacco Use Types Packs/Day Years Used Date Smoking Tobacco: Never Assessed Sex and Gender Information Value Date Recorded Sex Assigned at Not on file Gender Identity Not on file Sexual Orientation Not on file Plan of Treatment Not on file
--- OUTSIDE RECORDS SUMMARY | 2024-07-16 18:13 | XMS_ITS | Encounter Summary ---
Author Organization [facility] Address [address] [place] [address] Care Team Providers Care Geriatrician Name Role Phone Unavailable Primary Care Provider Unavailabl e Encounter Details Date Type Department Care Team (Late st Contact Info) Description 12/11/2023 Lab Requisition [facility] Pathology & Laboratory Medicine - [facility] [address] [place] [address] Outr Resulting Lab, Provider Social History Tobacco [...] 4th Generation Negative Negative 12/12/2023 12:15 EDT [facility] Comment:If acute HIV-1 infec tion is suspected in a high risk patient, submit plasma specimen for HIV-1 RNA quantitation test. Blood VENOUS BLOOD / Unknown 12/11/2023 11:00 EDT 12/11/2023 21:23 EDT Narrative [facility] - 12/12/2023 12:15 EDT Fourth Generation assay performed on the Siemens Centaur XPT. Provider Outr Resulting Lab IMMUNOLOGY A ND SEROLOGY ORDERABLES [facility] [address] [place] [id number] documented in this encounter Visit Diagnoses Not on filedocumented in this encounter
--- NOTE | 2024-07-16 18:41 | W.PC.ACHO ---
Registration Status: Primary Language: Preferred Language: ED Information & Data Chief Complaint AMS/LOC 07/16/24 14:12 Triage Note here for increased WBC count 07/16/24 13:10 that was collected at home. AMS and elevated BS per family. NIDDM. denies fevers or difficulty urinating. states urine has been checked for UTI. Medical / Surgical History (Last Updated 06/13/24 @ 03:06 by Abelardo Benítez) Discharge planning issues Chronic hyperglycemia Tobacco abuse Most Recent Vital Signs Temperature 37.2 C 07/16/24 18:18 Temperature Source Oral 07/16/24 13:10 Pulse 72 07/16/24 18:18 Pulse 57 L 07/16/24 17:40 Respiratory Rate 16 07/16/24 18:18 Respiratory Effort Normal, Non-Labored 07/16/24 18:18 Respiratory Depth Normal 07/16/24 18:18 Respiratory Pattern Normal 07/16/24 18:18 Blood Pressure 153/60 H 07/16/24 18:18 Blood Pressure Mean 94 07/16/24 16:31 Blood Pressure Position Supine 07/16/24 14:08 Pulse Oximetry 79 L 07/16/24 16:53 Oxygen Delivery Method Room Air 07/16/24 18:18 Oxygen Flow Rate 0 07/16/24 18:18 Pain Level 0 07/16/24 14:08 Allergies No Known Allergies Allergy (Unverified 07/16/24 13:14) Precautions Isolation Fall precaution 07/16/24 14:04 IV IV Catheter Type [Left Saline Lock Antecubital] IV Catheter Gauge [Left 18 Antecubital] Diet Orders Category Date Time Status Heart Healthy Eating [DIET] Nutrition 07/16/24 Dinner Active Diagnostics 07/16/24 07/16/24 07/16/24 Range/Units 17:07 16:05 15:46 Sodium (136-145) mmol/L Potassium (3.5-5.1) mmol/L Chloride (98-107) mmol/L Carbon Dioxide (21.0-32.0) mmol/L Anion Gap (3-11) mmol/L BUN (7-18) mg/dL Creatinine (0.55-1.02) mg/dL Est GFR (CKD-EPI 2020) (mL/min/1.73m2) Glucose (74-106) mg/dL Calcium (8.5-10.1) mg/dL Magnesium (1.8-2.4) mg/dL Total Bilirubin (0.2-1.0) mg/dL AST (15-37) U/L ALT (14-59) U/L Alkaline Phosphatase (46-116) U/L Troponin I 23 25 (<or=51) ng/L Total Protein (6.4-8.2) g/dL Albumin (3.4-5.0) g/dL Urine Color Yellow (Yellow) Urine Clarity Sl Cloudy (Clear) Urine pH 6.0 (5-8) Ur Specific [place] 1.010 (1.005-1.025) Urine Protein Trace (Neg-Trace) mg/dL Urine Ketones Negative (Negative) mg/dL Urine Blood Trace-lysed H (Negative) Urine Nitrite Positive H (Negative) Urine Bilirubin Negative (Negative) Urine Urobilinogen 0.2 (Up to 0.2) mg/dL Ur Leukocyte Esterase Large H (Negative) Urine RBC 3-5 H (0-2) HPF Urine WBC >50 H (0-5) HPF Ur Epithelial Cells Few (Negative) HPF Urine Crystals Negative (Negative) HPF Urine Bacteria Packed (Negative) HPF Urine Casts Negative (Negative) LPF Urine Mucus Negative (Negative) Urine Other Negative (Negative) Ur Culture Indicated? Yes Urine Glucose Negative (Negative) mg/dL 07/16/24 Range/Units 13:50 Sodium 141 (136-145) mmol/L Potassium 2.6 L* (3.5-5.1) mmol/L Chloride 105 (98-107) mmol/L Carbon Dioxide 22.6 (21.0-32.0) mmol/L Anion Gap 13.4 H (3-11) mmol/L BUN 35 H (7-18) mg/dL Creatinine 2.1 H (0.55-1.02) mg/dL Est GFR (CKD-EPI 2020) 24.27 (mL/min/1.73m2) Glucose 142 H (74-106) mg/dL Calcium 9.5 (8.5-10.1) mg/dL Magnesium 2.1 (1.8-2.4) mg/dL Total Bilirubin 0.41 (0.2-1.0) mg/dL AST 29 (15-37) U/L ALT 26 (14-59) U/L Alkaline Phosphatase 112 (46-116) U/L Troponin I 26 (<or=51) ng/L Total Protein 7.4 (6.4-8.2) g/dL Albumin 3.4 (3.4-5.0) g/dL Urine Color (Yellow) Urine Clarity (Clear) Urine pH (5-8) Ur Specific [place] (1.005-1.025) Urine Protein (Neg-Trace) mg/dL Urine Ketones (Negative) mg/dL Urine Blood (Negative) Urine Nitrite (Negative) Urine Bilirubin (Negative) Urine Urobilinogen (Up to 0.2) mg/dL Ur Leukocyte Esterase (Negative) Urine RBC (0-2) HPF Urine WBC (0-5) HPF Ur Epithelial Cells (Negative) HPF Urine Crystals (Negative) HPF Urine Bacteria (Negative) HPF Urine Casts (Negative) LPF Urine Mucus (Negative) Urine Other (Negative) Ur Culture Indicated? Urine Glucose (Negative) mg/dL 07/16/24 15:46 Urine Culture - Pending Urine - Reflex from Ua [id number] Documentation Fingerstick Glucose Start: 07/16/24 13:16 Freq: .Stat Status: Active Protocol: Activity Type Activity Date Activity User E-sign Co-sign Detail Recorded Client Recorded Date Recorded By Document 07/16/24 13:19 GOLDIE DADAVY(3) [id number] 07/16/24 13:19 GOLDIE DAFRANCION(4) Intake and Output - 24 Hour Total 07/16/24 13:07 thru 07/16/24 18:18 Intake Total 150 Balance 150 Weight 51.1 kg Intake: IV 150 Falls Risk Assessment History of Falls Previous History 07/16/24 18:18 Contributing Factors Confusion,Impairments, 07/16/24 18:18 Medications Ambulatory Aids Uses ambulatory device 07/16/24 18:18 Tubes/Lines W/no contributing factors 07/16/24 18:18 Gait Evaluation W/any additional score 07/16/24 18:18 Cognition Cognitive impairment 07/16/24 18:18 Fall Total Score 84 07/16/24 18:18 Level of Risk Maximum Risk 07/16/24 18:18 Problems (Last Updated 06/13/24 @ 03:06 by Abelardo Benítez) Acute UTI (Acute) Spontaneous intracranial hemorrhage (Acute) Hypokalemia (Acute) v v v v v v v v v Sending and/or Receiving Nurses: Please use comment section below to note any information pertinent to the patient hand-off not included above. Information / Comments: Report received from: Yobani Johnson RN
--- NOTE | 2024-07-16 20:00 | DI.CT_ITS ---
Exam(s) CT HEAD WO EXAM: CT HEAD WO CLINICAL HISTORY: reassess spontaneous hemorrhage. TECHNIQUE: Imaging Protocol: Axial computed tomography images with coronal and sagittal reformatted images were created and reviewed COMPARISON: CT CT HEAD WO from 07/16/2024 FINDINGS: Ventricles and Extra axial spaces: Normal in size and morphology for the patient's age. Hemorrhage: The area of hemorrhage in the patient's old right parieto-occipital infarct is unchanged. No mass effect is identified. Cerebral parenchyma: There is encephalomalacia again seen in the right parietal occipital lobe consis tent with the patient's infarct. There are areas of decreased attenuation in the white matter consis tent with chronic microvascular ischemic disease. Old lacunar infarcts are seen on the right. Midline shift: None. Brainstem/Cerebellum: Normal. Calvarium: Normal. Visualized Paranasal sinuses/Mastoids: Clear. Soft Tissues: Unremarkable. IMPRESSION: No change in appearance of the hemorrhage compared to the examination from earlier in the day. RADIATION DOSE DELIVERED: 819.49mGy.cm Total DLP DATA REPOSITORY: All CT scans at this facility are submitted to the National Radiology Data Registry (NRDR) Dose Index Registry (DIR) with the [employer] (ACR). RADIATION OPTIMIZATION: All CT scans at this facility use at least one of these dose optimization te chniques: automated exposure control; mA and/or kV adjustment per patient size (includes targeted exa ms where dose is matched to clinical indication); or iterative reconstruction.
[2024-07-16] MEDS: Acetaminophen 325 MG TAB 650 MG PO (20:14)
[2024-07-16] MEDS: Metoprolol 12.5 MG TAB PO (20:14)
[2024-07-16] MEDS: Atorvastatin 40 MG TAB 80 MG PO (20:14)
[2024-07-16] MEDS: QUEtiapine 25 MG TAB 12.5 MG PO (20:15)
[2024-07-17 03:17] VITALS: BP 107/46; PULSE 52; RESP 18; TEMP 36.7; O2SAT 98
[2024-07-17 06:40] LABS: Abs Immature Grans 0.23 10^3/uL (0.0-0.06); Absolute Basophil Count 0.06 10^3/uL (0.0-0.2); Absolute Eosinophil Count 0.28 10^3/uL (0.0-0.7); Absolute Neutrophil Count 8.78 10^3/uL (1.2-6.7); Basophils % 0.4 %; HCT 25.7 % (36.0-46.0); HGB 9.2 g/dL (11.2-15.7); Immature Grans % 1.6 %; Lymphocytes % 27.3 %; MCH 30.9 pg (27.0-33.0); MCHC 35.8 % (32.0-36.0); MCV 86 fL (80-95); MPV 10.5 fL (8.0-11.0); Monocytes % 6.4 %; Neutrophils % 62.3 %; Platelet Count 307 10^3/uL (130-400); RBC 2.98 10^6/uL (3.93-5.22); RDW 13.2 % (11.7-14.6); RDW-SD 40.9 fL; WBC 14.09 10^3/uL (4.4-10.8)
[2024-07-17 06:43] LABS: Absolute Lymphocyte Count 3.85 10^3/uL (1.2-3.4)
[2024-07-17 06:53] LABS: Anion Gap 11.3 mmol/L (3-11); BUN 30 mg/dL (7-18); CO2 23.7 mmol/L (21.0-32.0); CREATININE 1.8 mg/dL (0.55-1.02); Calcium 8.8 mg/dL (8.5-10.1); Chloride 111 mmol/L (98-107); Glucose 95 mg/dL (74-106); Potassium 3.1 mmol/L (3.5-5.1); Sodium 146 mmol/L (136-145)
[2024-07-17 07:34] VITALS: BP 122/55; PULSE 50; RESP 16; TEMP 36.7; O2SAT 99
[2024-07-17] MEDS: traZODone 50 MG TAB PO (09:00)
[2024-07-17] MEDS: Sodium Bicarbonate 650 MG TAB 325 MG PO (09:00)
[2024-07-17] MEDS: amLODIPine 5 MG TAB PO (09:01)
[2024-07-17] MEDS: Sertraline 25 MG TAB PO (09:01)
[2024-07-17] MEDS: Losartan 25 MG TAB PO (09:02)
[2024-07-17] MEDS: Metoprolol 12.5 MG TAB PO ×2 (09:02→19:52)
[2024-07-17] MEDS: QUEtiapine 25 MG TAB PO (09:03)
[2024-07-17] MEDS: Normal Saline Flush 10 ML SYR IVP (09:03)
--- NOTE | 2024-07-17 09:06 | PDOC.CMIN ---
Date of service: 07/17/24 Time of Service: 09:07 Care Management Initial Assmt Initial Assessment Reason for Hospitalization: UTI, abnormal head CT, history of CVA Functional Status/Living Situation Patient Presentation: Jennifer was sitting in the recliner watching TV when CM met with her. She is difficult to assess due to confusion, but very pleasant and cheerful. Jennifer states that she helps with Donna, but she can't do it anymore. I really can't do anything anymore. Donna advises that Jennifer is well supported in the community. She has [facility] RN/PT/GASSER MACHINE OPERATOR services and is connected with [facility] and [facility]. She is followed by Palliative care and she is also looking into Day services at the [facility]. Donna states that Jennifer's had diarrhea since she was discharged from [facility] 3 weeks ago. Pt has been tired and hasn't wanted to do much since she's been home. Town of Residence: [facility] [place] Resides with: Other (Donna Jones) Significant Other/Family: Local Natural Supports: Donna Jonesily reported that Jennifer had a daughter who , and she has two sons who are estranged. Employment Status: Retired Instrumental Activities of Daily Living (ADLs): Requires support (Patient has dementia at baseline and requires assistance with her IADL's. Jennifer may need help during meal time because her left eye and hand coordination were affected by her recent stroke. ) with Dishes/food prep, Br[employer] Machine, Groceries, Heat/Utilities, Laundry and Transportation Medications Medication Management: No Issues/Barriers identified (Donna helps with home medications) Physical Functioning/Mobility Assistive Device: Walker Advance Directives Advance Directives: Do you have an Advance Directive: N 07/16/23 14:30 AD On File at [facility]: N 07/16/23 14:30 Date Asked 07/12/24 07/12/24 14:23 AD Date Reviewed COLST On File at [facility] COLST Date Scanned Code Status Resuscitation Status Full Code Insurance Coverage/Financial Issues Insurance: Medicare Medicaid Financial Issues: None identified Care Team Visit Care Team Role Provider Type Maximo Lainez Primary Care Provider NON-[facility] STAFF PHYSICIAN InPatient Joni Martinez Other Providers OTHER Crystal Zimmer Emergency Provider NURSE PRACTITIONER Shaheen Jones MD Admit Provider MD SANCHEZ STAFF PHYSICIAN Attending Provider Discharge Potential Discharge Needs: Imaging/labs, PT Evaluation and PCP F/U Appt Anticipated Barriers to Discharge: Medical Status Patient/Family Education Needs: Review discharge instructions, discuss Ask Me Three Transportation: Private vehicle Plan: PT recommends: SNF for STR vs. Home with resumption of [facility] PT. STR is declined by Jennifer and Donna at this time. Anticipate, Jennifer will discharge home with resumption of [facility] RN/PT/OT/GASSER MACHINE OPERATOR and caregiver support tomorrow if medically ready. She will be driven by Donna and follow up with her PCP and discharge plan of care. CM will continue to follow. PFSH All Active Problems (Updated 07/17/24 @ 11:33 by Tsering Saenz NP) Hypokalemia (Acute) On deep vein thrombosis (DVT) prophylaxis (Acute) Acute UTI (Acute) Spontaneous intracranial hemorrhage (Acute) Carotid artery stenosis (Acute) Hemianopsia (Acute) History of CVA with residual deficit (Acute) Vascular dementia (Acute) Hyperlipidemia (Chronic) CKD (chronic kidney disease) stage 3, GFR 30-59 ml/min (Chronic) HTN (hypertension) (Chronic) Dementia (Chronic) CVA (cerebral vascular accident) (Chronic) Medical History (Updated 07/17/24 @ 11:33 by Tsering Saenz NP) Discharge planning issues Chronic hyperglycemia Tobacco abuse Social History Smoking/Tobacco Use Status: Former Tobacco Use Quit Date: 06/16/24 Smoking risk assessment performed?: Yes Alcohol Intake: current Drug use: Never Substance use type: does not use Housing: house Additional Social history: lives with nephew and nephews . Readmission Within the Past 30 Days Yes or No: Yes Date of First Admission Date of 1st Admission: 06/13/24 Date of this Admission Date of Admission: 07/16/24 This admission was: Through ED Office Visit Since 1st Admission Have you seen your PCP in the office since discharge?: Yes Date of PCP Appointment: Twice: July 09 and . Had an appointment Been Scheduled?: Yes Speicalist Appointments Have you seen any other specialist since your 1st Admission?: Yes Date you saw the Specialist: 07/15/24 Specialist Seen: Palliative Care I. Interview patient and/or Family Difficulty reaching your doctor or getting an office appt?: No Have you had trouble purchasing/ or taking medication?: No Have you had trouble with getting meals at home?: No Describe your typical meals since you have been home: MOW and Caregiver support Did you feel ready for discharge when you left the last time: Yes Why did you not feel ready for discharge?: Patient was discharged to [facility] for Acute STR ED visits How many ED visits in the past 12 months: 2 SDOH(Care Management) Screening Will the Patient Participate in the Screening?: Unable to obtain Anticipated HH Services Anticipated HH Services at Discharge [facility] Resumption, Adelina, GASSER MACHINE OPERATOR, OT, PT and RN Anticipated Date of Discharge: 07/18/24. Following Provider: Maximo Lainez.
[2024-07-17] MEDS: cefTRIAXone 1 GM/50 ML BAG IVPB (09:18)
--- NOTE | 2024-07-17 11:27 | PHA.REVIEW2 ---
Pharmacy Admission Review Admission Clinical Review Admission Pharmacy Review: On deep vein thrombosis (DVT) prophylaxis (Acute) Acute UTI (Acute) Spontaneous intracranial hemorrhage (Acute) Hemianopsia (Acute) History of CVA with residual deficit (Acute) No Known Allergies Allergy (Unverified 07/16/24 13:14) Resuscitation Status Full Code Height 4 ft 11 in Weight 51.1 kg Pharmacy Admission Review Renal Dosing Renal Dosing: BUN 30 mg/dL (7-18) H 07/17/24 06:17 Creatinine 1.8 mg/dL (0.55-1.02) H 07/17/24 06:17 Medications needing adjustments: Reviewed (CrCl 22.1 mL/min, BUN decreased from 35 and SCr decreased from 2.1) List of meds needing interventions: Current medications are okay Anticoagulation Anticoagulation: Hgb 9.2 g/dL (11.2-15.7) L D 07/17/24 06:17 Hct 25.7 % (36.0-46.0) L 07/17/24 06:17 Plt Count 307 10^3/uL (130-400) 07/17/24 06:17 Creatinine 1.8 mg/dL (0.55-1.02) H 07/17/24 06:17 DVT Prophylaxis: Reviewed (TEDs - hemorrhage) Relevant Labs Relevant Labs: Sodium 146 mmol/L (136-145) H 07/17/24 06:17 Potassium 3.1 mmol/L (3.5-5.1) L 07/17/24 06:17 Chloride 111 mmol/L (98-107) H 07/17/24 06:17 Magnesium 2.1 mg/dL (1.8-2.4) 07/16/24 13:50 Electrolytes, C-Reactive P, ESR: Reviewed (Na 146, K increased from 2.6) Cardiac Review Cardiac Review: Troponin I 23 ng/L (<or=51) 07/16/24 17:07 BP, HR, EF%: Reviewed (BP 122/55 and HR 50) List meds needing interventions: Has order for amlodipine 5mg daily, losartan 25mg daily and metoprolol 12.5mg BID QTc Review QTc: Reviewed (441 from 07/16/24) IV to PO Switch IV Medications: Reviewed (ceftriaxone - waiting on cultures, then will switch to PO per provider) Home Meds Home Med List reviewed: Reviewed Relevent Home Meds Not ordered & why?: aspirin (discontinued per H+P), clopidogrel (discontinued per H+P), nicotine patch (PRN) Current Meds Current Medication Order Review: Intervened Comments: Added 2nd PRN to APAP and quetiapine orders per pharmacy protocol Changed trazodone order from daily to HS to match home med list Pharmacy Antibiotic Review Relevant Labs: WBC 14.09 10^3/uL (4.4-10.8) H 07/17/24 06:17 Temperature 36.7 C Temperature 36.7 C Pharmacy Antibiotic Activity: C/S review and Reviewed, no change Comments: Patient is on ceftriaxone, day 2, for UTI. Per nursing patient took out IV this morning, provider said she is hoping to change to oral antibiotic once cultures come in. Urine culture currently pending.
--- NOTE | 2024-07-17 11:28 | PGE_ITS ---
Date of Service Date of service: 07/17/24 Time of Service: 11:28 Assessment and Plan Assessment and plan (1) Acute UTI: Status: Acute Assessment and plan: UA positive Urine culture pending On IV ceftriaxone day 2 (2) Spontaneous intracranial hemorrhage: Status: Acute Assessment and plan: Hemorrhagic transformation of previous ischemic infarct Evidence per CT at 0-hour No change in CT at 6 hours Plavix and ASA stopped as per recommendation by [facility] neurosurgery neurovascular had recommended medical management. (3) History of CVA with residual deficit: Status: Acute Assessment and plan: As above (4) Hemianopsia: Status: Acute Assessment and plan: Ongoing since initial CVA on 05/2024 (5) Hypokalemia: Status: Acute Assessment and plan: Supplementation in progress continue to follow labs add on mag level (6) HTN (hypertension): Status: Chronic Assessment and plan: Continue home dose amlodipine, losartan and metoprolol Qualifiers: Hypertension type: primary hypertension Qualified Code(s): I10 - Essential (primary) hypertension (7) Dementia: Status: Chronic Assessment and plan: On home dose Seroquel Low-dose as needed Seroquel at bedtime stable and at baseline with no behavioral issues, anticipate delirium while hospitalized but no episodes thus far, safety precautions Qualifiers: Dementia type: vascular dementia Dementia severity: moderate Dementia behavioral or psychological symptom: without behavioral, psychotic, or mood disturbance or anxiety Qualified Code(s): F01.B0 - Vascular dementia, moderate, without behavioral disturbance, psychotic disturbance, mood disturbance, and anxiety (8) On deep vein thrombosis (DVT) prophylaxis: Status: Acute Assessment and plan: TEDs No low molecular weight heparin at this time Discussed with Dr. Jones Subjective Subjective Patient reports: no new complaints, feels better, tolerating liquids well, tolerating a regular diet and afebrile Interval history since last seen: pleasantly confused, at baseline, hemodynamically stable Exam Const General: cooperative, comfortable and no acute distress Nutritional Appearance: average body habitus Orientation: alert, awake, oriented to person, not oriented to place (able to say she's in the hospital. ), not oriented to time and confused HENMT Head: normal to inspection, normocephalic and atraumatic Face and sinus: normal facial exam Mouth: oral mucosae normal Neck Neck: normal visual inspection and full ROM Chest Chest: normal inspection of the chest Resp Effort & Inspection: normal respiratory effort and able to speak in complete sentences Cardio Rate: regular rate Rhythm: regular rhythm GI Inspection: normal to inspection Palpation: soft Skin General skin exam: no rashes or lesions noted Neuro General: patient alert, patient awake and oriented Patient Orientation: Person and Confused Extrem General: normal to inspection and full ROM Objective Last Vital Signs Temp 36.7 C 07/17/24 07:34 Pulse 50 L 07/17/24 07:34 Resp 16 07/17/24 07:34 BP 122/55 L 07/17/24 07:34 Pulse Ox 99 07/17/24 07:34 Laboratory Results - last 24 hr 07/16/24 07/16/24 07/16/24 13:50 15:46 16:05 WBC RBC Hgb Hct MCV MCH MCHC RDW Plt Count MPV Immature Gran % Neutrophils % Lymphocytes % Monocytes % Eosinophils % Basophils % Nucleated RBC % Absolute Neutrophils Absolute Lymphocytes Absolute Monocytes Absolute Eosinophils Absolute Basophils Sodium 141 Potassium 2.6 L* Chloride 105 Carbon Dioxide 22.6 Anion Gap 13.4 H BUN 35 H Creatinine 2.1 H Est GFR (CKD-EPI 2020) 24.27 Glucose 142 H Calcium 9.5 Magnesium 2.1 Total Bilirubin 0.41 AST 29 ALT 26 Alkaline Phosphatase 112 Troponin I 26 25 Total Protein 7.4 Albumin 3.4 Urine Color Yellow Urine Clarity Sl Cloudy Urine pH 6.0 Ur Specific [place] 1.010 Urine Protein Trace Urine Ketones Negative Urine Blood Trace-lysed H Urine Nitrite Positive H Urine Bilirubin Negative Urine Urobilinogen 0.2 Ur Leukocyte Esterase Large H Urine RBC 3-5 H Urine WBC >50 H Ur Epithelial Cells Few Urine Crystals Negative Urine Bacteria Packed Urine Casts Negative Urine Mucus Negative Urine Other Negative Ur Culture Indicated? Yes Urine Glucose Negative 07/16/24 07/17/24 17:07 06:17 WBC 14.09 H RBC 2.98 L Hgb 9.2 L D Hct 25.7 L MCV 86 MCH 30.9 MCHC 35.8 RDW 13.2 Plt Count 307 MPV 10.5 Immature Gran % 1.6 Neutrophils % 62.3 Lymphocytes % 27.3 Monocytes % 6.4 Eosinophils % 2.0 Basophils % 0.4 Nucleated RBC % 0.0 Absolute Neutrophils 8.78 H Absolute Lymphocytes 3.85 H Absolute Monocytes 0.90 H Absolute Eosinophils 0.28 Absolute Basophils 0.06 Sodium 146 H Potassium 3.1 L Chloride 111 H Carbon Dioxide 23.7 Anion Gap 11.3 H BUN 30 H Creatinine 1.8 H Est GFR (CKD-EPI 2020) 29.20 Glucose 95 Calcium 8.8 Magnesium Total Bilirubin AST ALT Alkaline Phosphatase Troponin I 23 Total Protein Albumin Urine Color Urine Clarity Urine pH Ur Specific [place] Urine Protein Urine Ketones Urine Blood Urine Nitrite Urine Bilirubin Urine Urobilinogen Ur Leukocyte Esterase Urine RBC Urine WBC Ur Epithelial Cells Urine Crystals Urine Bacteria Urine Casts Urine Mucus Urine Other Ur Culture Indicated? Urine Glucose Time Spent with Patient Time Spent with Patient: >50 minutes Time was spent: preparing to see the patient(eg.review tests), obtaining and/or reviewing separately otained hiistory, ordering medications,tests, procedures, indepentently interpreting results, counseling the patient and care coordination
[2024-07-17 11:32] VITALS: BP 129/62; PULSE 59; RESP 16; TEMP 37.1; O2SAT 100
[2024-07-17 11:44] LABS: Lab Add On Test DONE
--- NOTE | 2024-07-17 13:15 | IN_ITS ---
PT Notes Visit Reasons: abnormal head CT, UTI, JULIO on CKD, hypokalemia Inpatient Physical Therapy Evaluation Date: 07/17/2024 Referring Doctor: Hoda Pink PT Orders: PT CONSULT: Fall Safety Assessment Patient Profile/Admitting Diagnosis: UTI, abnormal head CT, history of CVA PMHX: CVA 06/15 Social History/Home Situation: unclear due to confusion Current Functional Limitations: unknown Equipment Owned/DME: unknown Subjective: Pt admitted following increased confusion at home as noticed by her niece Donna. Pt is not able to describe her history to a great extent as she is confused today. She states that she is by does not live with her joshua d. She is unable to describe her home situation as she is unsure if she has stairs. She states that she recognizes the walker but does not know if she uses one or not. She believes it is 2013. She knows she is at the hospital but is unsure as to why. Objective: General Observation: well appearing, sitting up in the chair watching TV, tele in place Mental Status: A+Ox2 Pain: Denies pain Vital Signs: monitored by nursing, remained stable throughout the session ROM: Right Upper Extremity: WFL Left Upper Extremity: WFL Strength: Right Upper Extremity: grossly 4/5 Left Upper Extremity: grossly 4/5 Right Lower Extremity: grossly 4/5 Left Lower Extremity: grossly 4/5 Coordination: unable to perform finger to nose or finger opposition testing due to being unable to understand Bed Mobility/Transfers: sit to stand - CGA stand to sit - CGA sit to supine - SBA bed rolling R/L - SBA Gait: amb 80 ft w/RW and CGA Balance: Static Sitting: independent Dynamic Sitting: independent Static Standing: independent Dynamic Standing: CGA Special Tests: Mobility Limitations Standardized Measure [facility]-PAC 6 clicks Basic Mobility Inpatient Short Form: Raw Score: 19 CMS Score: 41.77% Informed Consent/Education: Patient instructed in purpose of PT consult and plan of care. Assessment: Patient unable to describe her home situation today due to confusion making it difficult to recommend a discharge plan. She is moving quite well and is likely close to her functional baseline. She required CGA and a RW for 80 ft of ambulation today. She demonstrated bed mobility mostly independently and only required SBA. She does not seem to have any asymmetrical strength or ROM deficits impacting her function. She will likely be able to return home if her living situation was appropriate for her current level of confusion. She will benefit from continued PT services to progress her as tolerated and continue assisting with d/c planning. Patient is assessed as a [x] Moderate 12449 complexity based on the following: History: Moderate Examination: Moderate Presentation: Moderate Decision Making: Moderate Goals: Goals X1 week 1. Supine-Sit - independent 2. Sit-Supine - independent 3. Sit-Stand - independent 4. Stand-Sit - independent 5. Bed-Chair - independent 6. Chair-Bed - independent 7. Gait - SBA w/RW 8. Stairs - SBA w/bilat UE assist 9. Independent with home exercise program Plan of Care/Treatment Plan: 1-2x/day, 7 days/week x 1 week. Plan of care has been reviewed with the MEDICAL TECHNOLOGIST [employer] providing the service under Physical Therapy direction. Initiate Physical Therapy intervention for strengthening, bed mobility, transfers, gait, stairs, balance training, use of assistive device. DISCHARGE RECOMMENDATIONS: [x] Home with home health vs SNF dependent on current living situation and decreased confusion TREATMENT CODE/TIME: Moderate complexity marty ([id number]) - 25 min Please sign an return this page within 30 days if you agree with the above POC. Thank you! Physician Signature Date [facility]
[2024-07-17 15:01] VITALS: BP 121/57; PULSE 56; RESP 16; TEMP 37.2; O2SAT 99
[2024-07-17 19:39] VITALS: BP 116/41; PULSE 62; RESP 18; TEMP 37; O2SAT 99
[2024-07-17] MEDS: Atorvastatin 40 MG TAB 80 MG PO (19:52)
[2024-07-17 23:10] VITALS: BP 125/59; PULSE 53; RESP 18; TEMP 36.5; O2SAT 99
[2024-07-18 03:19] VITALS: BP 140/64; PULSE 53; RESP 18; TEMP 36.8; O2SAT 100
[2024-07-18 07:38] VITALS: BP 131/72; PULSE 52; RESP 14; TEMP 36.7; O2SAT 99
[2024-07-18] MEDS: QUEtiapine 25 MG TAB PO (08:25)
[2024-07-18] MEDS: Sertraline 25 MG TAB PO (08:25)
[2024-07-18] MEDS: Losartan 25 MG TAB PO (08:25)
[2024-07-18] MEDS: Sodium Bicarbonate 650 MG TAB 325 MG PO (08:25)
[2024-07-18] MEDS: amLODIPine 5 MG TAB PO (08:25)
--- NOTE | 2024-07-18 09:40 | PTTR_ITS ---
PT Notes Visit Reasons: abnormal head CT, UTI, JULIO on CKD, hypokalemia Inpatient Physical Therapy Treatment Note [facility] Date: 07/18/2024 PRECAUTIONS: Contact precautions - new SUBJECTIVE: Pt states that she is hoping to return home with Donna today. OBJECTIVE: ? PAIN: none VITALS: monitored by nursing Therapeutic Activities (25949d5): Direct one-on-one instruction in dynamic ac tivities to improve functional performance. ? BED MOBILITY/TRANSFERS? Supine-sit: SBA? Sit-supine: SBA? Sit-stand: SBA? Stand-sit: SBA? Bed-Chair: SBA ? Chair-bed: SBA -Provided skilled cues and instruction on performance and technique throughout. ? GAIT? Assistive Device: RW ? Weight bearing: FWB Assist: SBA ? Distance:? 100 ft ? Deviation: slow gait speed, decreased step length? STAIRS: Able to ascend/descend 4 steps w/SBA and bilat UE support ? ASSESSMENT:?Pt is at her functional baseline. She was able to perform stairs today with not much difficulty. She is still limited by her confusion and requires many tactile cues to direct her. She will need support at home but it sounds like her niece, Donna, is willing to provide that to her. It would benefit her to get home health services to progress her within the safety of her home. She can be d/c'd when medically cleared. PLAN: Continue ambulatory progression if kept in hospital TREATMENT CODE/TIME: Ther Act (45471) x 1 - 21 min DISCHARGE RECOMMENDATION: Home with the support of her niece and home health services
--- NOTE | 2024-07-18 10:45 | W.PM.PROGNOT ---
Date of Service Date of service: 07/18/24 Time of Service: 10:45 Assessment and Plan Assessment and plan (1) GI bleed: Status: Chronic Assessment and plan: presumed upper drop in H&H may be some dilution as well stable vitals and asymptomatic initiate PPI BID and carafate follow H&H consider outpatient referral for endoscopy no transfusion indicated at this time, ASA and plavix have been on hold for hemorrhagic conversion of CVA which is stable. will need to continue to hold (2) Acute UTI: Status: Acute Assessment and plan: UA growing Citrobacter freundii sensitive to ceftriaxone On IV ceftriaxone day 3 (3) Spontaneous intracranial hemorrhage: Status: Acute Assessment and plan: Hemorrhagic transformation of previous ischemic infarct Evidence per CT at 0-hour No change in CT at 6 hours Plavix and ASA stopped as per recommendation by [facility] neurosurgery, now also need to be on home for GI bleeding neurovascular had recommended medical management. (4) History of CVA with residual deficit: Status: Acute Assessment and plan: As above (5) Hemianopsia: Status: Acute Assessment and plan: Ongoing since initial CVA on 05/2024 (6) CKD (chronic kidney disease) stage 3, GFR 30-59 ml/min: Status: Chronic Assessment and plan: acute on chronic with baseline 1.5, now down to 1.8 from 2.1 avoid nephrotoxic drugs, renal dose as needed. taking good PO Qualifiers: Chronic kidney disease stage 3 subtype: stage 3b (GFR 30-44) Qualified Code(s): N18.32 - Chronic kidney disease, stage 3b (7) Hypokalemia: Status: Acute Assessment and plan: continue supplementation continue to follow labs mag level 2.0 (8) HTN (hypertension): Status: Chronic Assessment and plan: Continue home dose amlodipine, losartan and metoprolol Qualifiers: Hypertension type: primary hypertension Qualified Code(s): I10 - Essential (primary) hypertension (9) Dementia: Status: Chronic Assessment and plan: On home dose Seroquel Low-dose as needed Seroquel at bedtime stable and at baseline with no behavioral issues, anticipate delirium while hospitalized but no episodes thus far, safety precautions Qualifiers: Dementia type: vascular dementia Dementia severity: moderate Dementia behavioral or psychological symptom: without behavioral, psychotic, or mood disturbance or anxiety Qualified Code(s): F01.B0 - Vascular dementia, moderate, without behavioral disturbance, psychotic disturbance, mood disturbance, and anxiety (10) On deep vein thrombosis (DVT) prophylaxis: Status: Acute Assessment and plan: TEDs No low molecular weight heparin at this time in setting of GI bleed and hemorrhagic conversion of CVA Discussed with Dr. Jones Subjective Subjective Patient reports: no new complaints, feels better, tolerating liquids well, tolerating a regular diet, diarrhea (no patito blood noted) and afebrile; denies shortness of breath Interval history since last seen: no abdominal pain, dizziness, chest pain or shortness of breath. Exam Const General: cooperative, comfortable and no acute distress Nutritional Appearance: average body habitus Orientation: alert, awake, oriented to person and confused HENMT Head: normal to inspection, normocephalic and atraumatic Face and sinus: normal facial exam Mouth: oral mucosae normal Neck Neck: normal visual inspection and full ROM Chest Chest: normal inspection of the chest Resp Effort & Inspection: normal respiratory effort and able to speak in complete sentences Cardio Rate: regular rate Rhythm: regular rhythm GI Inspection: normal to inspection Palpation: soft Skin General skin exam: no rashes or lesions noted Neuro General: patient alert, patient awake and oriented Patient Orientation: Person and Confused Extrem General: normal to inspection and full ROM Objective Last Vital Signs Temp 36.7 C 07/18/24 07:38 Pulse 52 L 07/18/24 07:38 Resp 14 07/18/24 07:38 BP 131/72 07/18/24 07:38 Pulse Ox 99 07/18/24 07:38 Laboratory Results - last 24 hr 07/17/24 06:17 Magnesium 2.0 Add-On Test Request DONE Time Spent with Patient Time Spent with Patient: 35-49 minutes Time was spent: preparing to see the patient(eg.review tests), obtaining and/or reviewing separately otained hiistory, ordering medications,tests, procedures and indepentently interpreting results
[2024-07-18 11:02] VITALS: BP 127/51; PULSE 55; RESP 18; TEMP 37; O2SAT 100
[2024-07-18] MEDS: Potassium Chloride 20 MEQ TABCR 40 MEQ PO (11:16)
[2024-07-18] MEDS: Sucralfate 1 GM TAB PO ×3 (11:16→20:09)
[2024-07-18 14:08] LABS: HCT 28.5 % (36.0-46.0); HGB 9.9 g/dL (11.2-15.7)
[2024-07-18 15:32] VITALS: BP 123/63; PULSE 66; RESP 16; TEMP 37.7; O2SAT 99
[2024-07-18 19:42] LABS: C Diff PCR Negative (Negative)
[2024-07-18 20:08] VITALS: TEMP 37.7
[2024-07-18] MEDS: Acetaminophen 325 MG TAB 650 MG PO (20:08)
[2024-07-18] MEDS: traZODone 50 MG TAB PO (20:09)
[2024-07-18] MEDS: Metoprolol 12.5 MG TAB PO (20:09)
[2024-07-18] MEDS: Atorvastatin 40 MG TAB 80 MG PO (20:09)
[2024-07-18 20:10] VITALS: BP 146/65; PULSE 67; RESP 16; TEMP 37.7; O2SAT 100
[2024-07-19 06:23] LABS: Abs Immature Grans 0.31 10^3/uL (0.0-0.06); Absolute Eosinophil Count 0.42 10^3/uL (0.0-0.7); Absolute Monocyte Count 1.03 10^3/uL (0.1-0.8); Basophils % 0.6 %; HGB 9.5 g/dL (11.2-15.7); Immature Grans % 2.2 %; Lymphocytes % 33.9 %; MCH 30.2 pg (27.0-33.0); MCHC 33.9 % (32.0-36.0); MCV 89 fL (80-95); MPV 10.3 fL (8.0-11.0); Monocytes % 7.4 %; Neutrophils % 52.9 %; Platelet Count 308 10^3/uL (130-400); RBC 3.15 10^6/uL (3.93-5.22); RDW 13.6 % (11.7-14.6); RDW-SD 43.5 fL; WBC 13.86 10^3/uL (4.4-10.8)
[2024-07-19 06:24] LABS: Absolute Basophil Count 0.08 10^3/uL (0.0-0.2); Absolute Neutrophil Count 7.33 10^3/uL (1.2-6.7)
[2024-07-19 06:32] VITALS: BP 116/51; PULSE 56; RESP 16; TEMP 37.5; O2SAT 99
[2024-07-19 06:34] LABS: Anion Gap 11.1 mmol/L (3-11); BUN 18 mg/dL (7-18); CO2 22.9 mmol/L (21.0-32.0); CREATININE 1.7 mg/dL (0.55-1.02); Calcium 8.7 mg/dL (8.5-10.1); Chloride 112 mmol/L (98-107); Estimated GFR 31.27 (mL/min/1.73m2); Glucose 110 mg/dL (74-106); Potassium 3.3 mmol/L (3.5-5.1); Sodium 146 mmol/L (136-145)
[2024-07-19 07:36] VITALS: BP 140/63; PULSE 65; RESP 14; TEMP 36.7; O2SAT 100
[2024-07-19] MEDS: Metoprolol 12.5 MG TAB PO (08:11)
[2024-07-19] MEDS: Sertraline 25 MG TAB PO (08:11)
[2024-07-19] MEDS: QUEtiapine 25 MG TAB PO (08:12)
[2024-07-19] MEDS: amLODIPine 5 MG TAB PO (08:12)
[2024-07-19] MEDS: Sucralfate 1 GM TAB PO ×2 (08:12→11:21)
[2024-07-19] MEDS: Sodium Bicarbonate 650 MG TAB 325 MG PO (08:12)
[2024-07-19] MEDS: Losartan 25 MG TAB PO (08:12)
--- NOTE | 2024-07-19 09:52 | W.PM.PROGNOT ---
Assessment and Plan Assessment and plan (1) GI bleed: Status: Chronic Assessment and plan: presumed upper drop in H&H may be some dilution as well stable vitals and asymptomatic initiate PPI BID and carafate follow H&H consider outpatient referral for endoscopy no transfusion indicated at this time, ASA and plavix have been on hold for hemorrhagic conversion of CVA which is stable. will need to continue to hold (2) Acute UTI: Status: Acute Assessment and plan: UA growing Citrobacter freundii sensitive to ceftriaxone On IV ceftriaxone day 3 (3) Spontaneous intracranial hemorrhage: Status: Acute Assessment and plan: Hemorrhagic transformation of previous ischemic infarct Evidence per CT at 0-hour No change in CT at 6 hours Plavix and ASA stopped as per recommendation by [facility] neurosurgery, now also need to be on home for GI bleeding neurovascular had recommended medical management. (4) History of CVA with residual deficit: Status: Acute Assessment and plan: As above (5) Hemianopsia: Status: Acute Assessment and plan: Ongoing since initial CVA on 05/2024 (6) CKD (chronic kidney disease) stage 3, GFR 30-59 ml/min: Status: Chronic Assessment and plan: acute on chronic with baseline 1.5, now down to 1.8 from 2.1 avoid nephrotoxic drugs, renal dose as needed. taking good PO Qualifiers: Chronic kidney disease stage 3 subtype: stage 3b (GFR 30-44) Qualified Code(s): N18.32 - Chronic kidney disease, stage 3b (7) Hypokalemia: Status: Acute Assessment and plan: continue supplementation continue to follow labs mag level 2.0 (8) HTN (hypertension): Status: Chronic Assessment and plan: Continue home dose amlodipine, losartan and metoprolol Qualifiers: Hypertension type: primary hypertension Qualified Code(s): I10 - Essential (primary) hypertension (9) Dementia: Status: Chronic Assessment and plan: On home dose Seroquel Low-dose as needed Seroquel at bedtime stable and at baseline with no behavioral issues, anticipate delirium while hospitalized but no episodes thus far, safety precautions Qualifiers: Dementia type: vascular dementia Dementia severity: moderate Dementia behavioral or psychological symptom: without behavioral, psychotic, or mood disturbance or anxiety Qualified Code(s): F01.B0 - Vascular dementia, moderate, without behavioral disturbance, psychotic disturbance, mood disturbance, and anxiety (10) On deep vein thrombosis (DVT) prophylaxis: Status: Acute Assessment and plan: TEDs No low molecular weight heparin at this time in setting of GI bleed and hemorrhagic conversion of CVA Discussed with Dr. Jones Objective Last Vital Signs Temp 36.7 C 07/19/24 07:36 Pulse 65 07/19/24 07:36 Resp 14 07/19/24 07:36 BP 140/63 07/19/24 07:36 Pulse Ox 100 07/19/24 07:36 Laboratory Results - last 24 hr 07/18/24 07/18/24 07/19/24 14:03 18:05 05:55 WBC 13.86 H RBC 3.15 L Hgb 9.9 L 9.5 L Hct 28.5 L 28.0 L MCV 89 MCH 30.2 MCHC 33.9 RDW 13.6 Plt Count 308 MPV 10.3 Immature Gran % 2.2 Neutrophils % 52.9 Lymphocytes % 33.9 Monocytes % 7.4 Eosinophils % 3.0 Basophils % 0.6 Nucleated RBC % 0.0 Absolute Neutrophils 7.33 H Absolute Lymphocytes 4.70 H Absolute Monocytes 1.03 H Absolute Eosinophils 0.42 Absolute Basophils 0.08 Sodium 146 H Potassium 3.3 L Chloride 112 H Carbon Dioxide 22.9 Anion Gap 11.1 H BUN 18 Creatinine 1.7 H Est GFR (CKD-EPI 2020) 31.27 Glucose 110 H Calcium 8.7 Stl C.difficile Tox PCR Negative
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
--- NOTE | 2024-07-19 10:48 | PDOC.CMDIS ---
Date of service: 07/19/24 Time of Service: 10:48 LACE Index Scoring Tool Questions: Length of Stay (in days): 3 Was the patient admitted via the E.D.?: Yes Comorbidities: Cerebrovascular Disease, Dementia and Liver or Renal Disease E.D. Visits: 2 Answers: Total Score: 13 Risk of Readmission: High Risk Care Management Discharge Plan Reason for Hospitalization: Acute UTI Discharge Plan: Discharge home with resumption of full [facility] services and Community/caregiver supports. Follow up with PCP and discharge plan of care as recommended. Donna will provide transportation. Patient/Family Education Needs: Review discharge instructions, limitations, medications and plan to follow up with community providers. Discuss ask me three. Services Needed at Discharge: Home Health Care Services (Resume [facility] RN, PT, OT, BOOKSTORE CLERK) and Homemaking Services (Provided by [facility]) [facility] Health Related Social Needs: No Data to Display
[2024-07-19] MEDS: Cefpodoxime 200 MG TAB PO (11:21)
[2024-07-19] MEDS: Pantoprazole 40 MG TABCR PO (11:21)
--- NOTE | 2024-07-19 12:48 | PT.INTREAT ---
PT Notes Visit Reasons: abnormal head CT, UTI, JULIO on CKD, hypokalemia Inpatient Physical Therapy Treatment Note [facility] Date: 07/19/2024 PRECAUTIONS: Contact precautions - new SUBJECTIVE: Pt states that she is leaving today but she does not know where she is going. OBJECTIVE: ? PAIN: none VITALS: monitored by nursing Therapeutic Activities (72721h3): Direct one-on-one instruction in dynamic activities to improve functional performance. ? BED MOBILITY/TRANSFERS? Supine-sit: SBA? Sit-supine: SBA? Sit-stand: SBA? Stand-sit: SBA? Bed-Chair: SBA ? Chair-bed: SBA -Provided skilled cues and instruction on performance and technique throughout. ? GAIT? Assistive Device: RW ? Weight bearing: FWB Assist: SBA ? Distance:? 100 ftx 1, 200 feet x 1 ? Deviation: slow gait speed, decreased step length? STAIRS: Able to ascend/descend 4 steps w/SBA and bilat UE support ? ASSESSMENT:?Pt limited by visual deficits on left related to her CVA. She has poor insight into her deficits and is at risk for falls d/t left visual deficit. She needs verbal cues to use her the FWW. as she will attempt to ambulate without it and has intermittent LOB to the left. PLAN: Continue ambulation with cues for left neglect compansation until discharge TREATMENT CODE/TIME: Ther Act (11693) x 1 - 19 min/ [id number] DISCHARGE RECOMMENDATION: Home with the support of her niece and home health PT
--- NOTE | 2024-07-19 13:31 | W.NUTRFU ---
Date of service: 07/19/24 Time of Service: 13:31
== END 2024-07-19 13:31 | disposition home health service (06) | DRG 64 ==
LOC: ER 16:26 → MS 18:11
PROVIDERS: Nurse Practitioner Acute Care; Admitting Provider Family Medicine; Emergency Provider Nurse Practitioner Family; PCP Student in an Organized Health Care Education/Training Program; Visit Provider Family Medicine
DX: I63.89 Other cerebral infarction (principal); I61.8 Other nontraumatic intracerebral hemorrhage; N39.0 Urinary tract infection, site not specified; N17.9 Acute kidney failure, unspecified; K92.1 Melena; H53.47 Heteronymous bilateral field defects; I12.9 Hypertensive chronic kidney disease with stage 1 through stage 4 chronic kidney disease, or unspecified chronic kidney disease; E87.6 Hypokalemia; N18.32 Chronic kidney disease, stage 3b; I69.312 Visuospatial deficit and spatial neglect following cerebral infarction; E78.5 Hyperlipidemia, unspecified; F01.B0 Vascular dementia, moderate, without behavioral disturbance, psychotic disturbance, mood disturbance, and anxiety; B96.89 Other specified bacterial agents as the cause of diseases classified elsewhere
CPT/HCPCS: 00123; 36415; 36416; 80048; 80053; 82962; 87077; 87493; 93005; 96365; 97162; 97530; 99285; 70450; 71046; 81003; 81015; 83735; 84484; 85014; 85018; 85025; 87086; 87186; 93010; 99223; 99232; 99233; 99239; J0696; J3480; J3490

== ENCOUNTER 2024-07-20 23:59 | Outpatient (REF) | payer MEDICARE, MEDICAID, SELFPAY ==
[2024-07-20 16:00] LABS: Abs Immature Grans 0.31 10^3/uL (0.0-0.06); Absolute Basophil Count 0.12 10^3/uL (0.0-0.2); Absolute Monocyte Count 0.88 10^3/uL (0.1-0.8); Basophils % 0.8 %; Eosinophils % 3.4 %; HCT 31.5 % (36.0-46.0); HGB 10.7 g/dL (11.2-15.7); Immature Grans % 2.1 %; Lymphocytes % 27.4 %; MCH 30.5 pg (27.0-33.0); MCV 90 fL (80-95); MPV 11.2 fL (8.0-11.0); Monocytes % 5.8 %; Neutrophils % 60.5 %; Platelet Count 363 10^3/uL (130-400); RBC 3.51 10^6/uL (3.93-5.22); RDW-SD 44.4 fL; WBC 15.12 10^3/uL (4.4-10.8)
[2024-07-20 16:01] LABS: Absolute Eosinophil Count 0.51 10^3/uL (0.0-0.7); Absolute Lymphocyte Count 4.14 10^3/uL (1.2-3.4); Absolute Neutrophil Count 9.15 10^3/uL (1.2-6.7)
[2024-07-20 17:22] LABS: Anion Gap 12.4 mmol/L (3-11); BUN 15 mg/dL (7-18); CO2 23.6 mmol/L (21.0-32.0); CREATININE 1.5 mg/dL (0.55-1.02); Calcium 9.5 mg/dL (8.5-10.1); Chloride 109 mmol/L (98-107); Estimated GFR 36.34 (mL/min/1.73m2); Glucose 126 mg/dL (74-106); Potassium 3.6 mmol/L (3.5-5.1); Sodium 145 mmol/L (136-145)
== END 2024-07-21 | disposition home or self-care (01) ==
LOC: NCHCN 23:59
PROVIDERS: PCP Student in an Organized Health Care Education/Training Program; Visit Provider Student in an Organized Health Care Education/Training Program
DX: K92.2 Gastrointestinal hemorrhage, unspecified (principal)
CPT/HCPCS: 80048; 83735; 85025

== ENCOUNTER 2024-07-22 14:36 | Outpatient (REF) | payer MEDICARE, MEDICAID, SELFPAY ==
--- OUTSIDE RECORDS SUMMARY | 2024-07-22 14:38 | XMS_ITS | Continuity of Care Document ---
Author Organization [place] - [facility], [facility] [place] [address] Assessment Encounter Date Assessment Date Assessment LastModified by Organization Details LastModified Time 07/20/2024 07/20/2024 Care mgmt note 07/19/2024 states,Discharge home with resumption of full [facility] services and Community/[facility] supports. Follow up with PCP and discharge plan of care as recommended. Donna will provide transportation. Patient/Family Education Needs: Review discharge instructions, limitations, medications and plan to follow up with community providers. Discuss ask me three. 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 General surgery appt. w/Dr. Young 08/02/2024: - Has Neuro appt. w/Dr. Mondragon 07/26/2024 Pt. likely overstimulated in hospital, now can rest at home so discussed with Donna she might be catching up on some sleep. Not available 07/20/2024 09:53:12 Plan of Treatment Reminders Order Date Submit Date Provider Last Modified By Organization Details Last Modified Time Details Appointments Annual Wellness Exam 40 2024 02:30P M Eduardo Lainez Not available Not available Not available Lab CBC w/ auto diff 2023 024 [facility] (Registration ), [address] [place], [address], 07/20/2024 16:04:47 BMP, serum or plasma 2023 024 [facility], [address] , [place], [address], 07/21/2024 08:27:59 magnesium , serum or plasma 2023 024 [email or web address] [facility] (Registration ), [address] [place], [address], 07/20/2024 09:37:51 Referral None recorded. Procedures None recorded. Surgeries None recorded. Imaging None recorded. Medication Orders Lactobaci llus acidophil us 1 billion cell tablet 2023 [id number], [address], [place], [id number], 07/20/2024 09:06:11 Patient TargetsNo targets recorded. Patient Instructions Encounter Date Encounter Id Patient Instructions Last Modified By Organization Details Last Modified Time 07/20/2024 [id number] Continue to hold aspirin. [email or web address] Not available 07/20/2024 09:14:21 Reason for Referral None Reported. Results Created Date Observation Date Name Description Value Unit Range Abnormal Flag Note LastModifiedBy Organization Detail LastModifiedTime 07/16/2007/16/2024 CT imagi ng repor t Obdulia wilde Name: Martha Payton Unit #: [id number] Loc: ER Orderi ng Provid er: Stephania Wolfe t #: [id number] Status : REG ER Primar y Care Provid er: Yulissa Lainez Date of Exam: 06/23 02/12 Sex: F : 1949 Age: 74 Exam(s ) a CT:CT head wo Exam(s ) CT HEAD WO EXAM: CT HEAD WO CLINIC AL HISTOR Y: AMS. TECHNI QUE: Imagin g Protoc ol: Axial comput ed tomogr aphy images with orozco l and sagitt al reform atted images were create d and review ed COMPAR JA: CT CT HEAD WO from 2023 FINDIN GS: Ventri cles and Extra axial spaces : Normal in size and morpho logy for the patien t's age. Hemorr raul: Please see the below sectio n under cerebr al parenc hyma. Cerebr al parenc hyma: There again seen findin gs of enceph alomal acia involv ing the right pariet al supra region consis tent with an old infarc t. There is a new area of hyperd ensity seen within the infarc t sugges ting some hemorr raul. There are areas of decrea sed attenu ation in the white matter consis tent with chroni c microv ascula r ischem ic diseas e. There is an old right basal gangli ar lacuna r infarc t. Midlin e shift: None. Brains tem/Ce rebell um: Normal . Calvar ium: Normal . Visual ized Parana ligia sinuse s/Mast oids: Clear. Soft Tissue s: Unrema rkable . IMPRES NATASHA: 1. 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 There is a new small hyperd ense area seen within the infarc t consis tent with a small acute hemorr raul. 2. Age-re lated cerebr al atroph y and chroni c microv ascula r ischem ic diseas e. 3. Findin gs were discus sed with Alliso n Ebrahi mi-Gol d at 2:45 p.m. on 2023. RADIAT ION DOSE DELIVE RED: 875.73 mGy.cm Total DLP DATA REPOSI TORY: All [...] tion); or iterat marc recons tructi on. 1025-0 025: Total DLP = 0.00 mGy-cm Ordere d By: Ebrahi mi Gold,A llison M CC: ------ ------ ------ ------ ------ ------ ------ ------ ------ ------ ------ ------ ---- Dictat ed By: Satinder Odonnell M.D. 1445 Transc ribed By: Satinder Odonnell 1445 This is privil eged, confid ential inform [...] Thank- you. INTERFACE [facility] [address], [place], [address] 07/16/2024 14:51:01 07/16/2007/16/2024 x-ray imagi ng repor t Obdulia t Name: Martha Payton Unit #: [id number] Loc: ER Orderi ng Provid er: Stephania Hagan Accoun t #: [id number] Status : REG ER Primar y Care Provid er: Yulissa Lainez Date of Exam: 06/23 02/12 Sex: F Admiss ion Date: : 1949 Age: 74 Exam(s ) XR CHEST 2V PA LATERA L EXAM: XR CHEST 2V PA LATERA L CLINIC AL HISTOR Y: AMS TECHNI QUE: 2D digita l imagin g was perfor med of the chest. Images were obtain ed. PA and latera l views were obtain ed. COMPAR JA: CR XR CHEST 2V PA LATERA L from 2023 FINDIN GS: MEDIAS TINUM: Normal . HEART: Normal . The patien t is status post CABG. PULMON OLMAN VASCUL ATURE: Normal . LUNGS: No focal consol idatin g infilt rates. PLEURA L SPACE: There is a small right pleura l effusi on. No left pleura l effusi on. No pneumo thorax . BONE:W ithin normal limits for the patien t's age. Sterna l wires are in place. OTHER FINDIN GS:Nor mal. IMPRES NATASHA: Small right pleura l effusi on. Otherw ise no acute pulmon olman proces s. DATA REPOSI TORY: RADIAT ION DOSE DELIVE RED: Ordere d By: Stephania Hagan CC: ------ ------ ------ ------ ------ ------ ------ ------ ------ ------ ------ ------ - Dictat ed By: Satinder Odonnell M.D. 1453 Transc ribed By: Satinder Odonnell 1453 This is privil eged, confid ential inform [...] the addres s above. Thank- you. INTERFACE [place] [address], [place], [address] 07/16/2024 14:58:08 07/16/2007/16/2024 CT imagi ng repor t Patien t Name: Martha Payton Unit #: [id number] Loc: ER Orderi ng Provid er: Stephania Hagan Accoun t #: [id number] Status : REG ER Primar y Care Provid er: FatouDanaradhalacy hanh Date of Exam: 06/23 02/12 Sex: F : 1949 Age: 74 Exam(s ) a CT:CT head wo Exam(s ) CT HEAD WO EXAM: CT HEAD WO CLINIC AL HISTOR Y: reasse ss sponta neous hemorr raul. TECHNI QUE: Imagin g Protoc ol: Axial comput ed tomogr aphy images with orozco l and sagitt al reform atted images were create d and review ed COMPAR JA: CT CT HEAD WO from 2023 FINDIN GS: Ventri cles and Extra axial spaces : Normal in size and morpho logy for the patien t's age. Hemorr raul: The area of hemorr raul in the patien t's old right pariet o-occi pital infarc t is unchan ged. No mass effect is identi fied. Cerebr al parenc hyma: There is enceph alomal acia again seen in the right pariet al occipi araceli lobe consis tent with the patien t's infarc t. There are areas of decrea sed attenu ation in the white matter consis tent with chroni c microv ascula r ischem ic diseas e. Old lacuna r infarc ts are seen on the right. Midlin e shift: None. Brains tem/Ce rebell um: Normal . Calvar ium: Normal . Visual ized Parana ligia sinuse s/Mast oids: Clear. Soft Tissue s: Unrema rkable . IMPRES NATASHA: No change in appear ance of the hemorr raul compar ed to the examin ation from earlie r in the day. RADIAT ION DOSE DELIVE RED: 819.49 mGy.cm Total DLP DATA REPOSI TORY: All CT scans at this facili ty are submit liz to the Nation al Radiol ogy Data Regist ry (NRDR) Dose Index Regist ry (DIR) with the [place] an Tammy cedillo of Radiol ogy (ACR). RADIAT ION [...] tion); or iterat marc recons tructi on. 1025-0 032: Total DLP = 0.00 mGy-cm Ordere d By: Stephania Hagan CC: ------ ------ ------ ------ ------ ------ ------ ------ ------ ------ ------ ------ ---- Dictat ed By: Satinder Odonnell M.D. 1724 Transc ribed By: Satinder Odonnell 1724 This is privil eged, confid ential inform ation intend ed only for the provid er named. Any use or distri bution by any person other than this provid er is strict ly prohib ited. If you receiv e this report in error, please notify us immedi laurel at and return the origin al report to us at the addres s above. Thank- you. INTERFACE [facility] [address] , [place], [address] 07/16/2024 17:29:32 Result Notes None recorded. Problems Name Problem SNOMED Code Status Onset Date Resolution Date Notes Provider Name and Address Organization Details Recorded Time Poor short-term memory 328055878 Active [address], [place], [address] , [facility] 4 10:28:13 Essential hypertensi on 09900787 Active [address], [place], [address] , [facility] 4 10:29:23 Blood glucose outside reference range 792505626 Active [address], [place], [address] , [facility] 4 10:30:43 Iritis 68090761 Active [address], [place], [address], [facility] 4 10:31:43 Tobacco dependence caused by cigarettes 501133232673 39690 Active [address], [place], [address], [facility] 4 12:23:42 Adjustment disorder with depressed mood 05562548 Active [address], [place], [address], [facility] 4 12:26:28 Prediabete s 039047497 Active 2023 5.7% on [address], [place], [address], [facility] 4 07:52:17 History of coronary artery bypass grafting 489951349 Active 2009 In 2009 per prior med recs [address], [place], [address], [facility] 4 14:53:13 Unexplaine d weight loss 987309849 Active [address], [place], [address], [facility] 4 13:43:55 Chronic cough 30143997 Active [address], [place], [address], [facility] 13:44:00 Pain of left shoulder joint 697431106036 43398 Active [address], [place], [address], [facility] 13:44:16 Hyperlipid emia 61016085 Active [address], [place], [address], [facility] 13:48:11 Chronic obstructiv e pulmonary disease 08352684 Active [address], [place], [address], [facility] 13:49:36 Lacunar infarction 386827700 Active [address], [place], [address], [facility] 18:17:27 Bradycardi a 71541803 Active [address], [place], [address], [facility] 18:36:12 Chronic kidney disease stage 3B 795207745 Active 2023 NOted in 1 Note in prior MR as stage 3 D/T HTN. Plan to control BP as care plan. [address], [place], [address], [facility] 05:24:31 Pulmonary emphysema 30136274 Active [address], [place], [address], [facility] 12:31:17 Leukocytos is 270337919 Active [address], [place], [address], [facility] 20:10:17 Pyuria 9285875 Active 2023 ISATU ZAMORA PA-C [address], [place], [address], [facility] 20:12:07 Agitation due to dementia 817656609 Active 2023 [address], [place], [address], [facility] 16:19:39 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 716157377 Active [address], [place], [address], [facility] 08:09:53 Hypokalemi a 92276384 Active 2023 [address], [place], [address], [facility] 08:10:59 Sundowning 858493971 Active [address], [place], [address], [facility] 08:12:54 Loose stool 722716741 Active [address], [place], [address], [facility] 09:45:26 Unsteady when walking 89331412 Active [address], [place], [address], [facility] 10:02:59 Decreased diastolic arterial pressure 08027365 Active [address], [place], [address], [facility] 10:04:18 Acute gastrointe stinal hemorrhage 58001589 Active [address], [facility] [address], [facility] 06:49:56 Cerebral infarction 605224010 Active [address], [facility] [address], [facility] 06:50:08 Acute urinary tract infection 132666656 Active [address], [facility] [address] , [facility] 06:52:30 Hypernatre sanaz 701696694 Active [address], [facility] [address] , [facility] 06:55:39 Problem Notes None recorded. Medical Equipment None Reported. Allergies Allergen ID Allergen Name Allergen Category Reaction Reaction Severity Criticality Documentation Date Start Date Code Code System Note Provider Name and Address Organization Details Recorded Time 42159 chlorthal idone medicatio n Not available Not available [facility] 01/28/[address], [facility] [address] , [facility] 17:56:24 08694 hydrochlo rothiazid e medicatio n Not available Not available [facility] 01/28/[address], [facility] [address] , [facility] 17:56:38 Medications Name Sig Start Date Stop Date Status Note LastModified by Organization Details LastModified Time losartan 50 mg tablet Take 1 tablet twice a day by oral route as directed . 2023 [facility] Not Available Not Available Not Available quetiapin e 25 mg tablet 1 tablet by mouth each night 2023 active Not Available Not Available Not Avai lable atorvasta tin 80 mg tablet Take 1 tablet every day by oral route at bedtime. 2023 active [facility] Not Available Not Available Not [...] Not Available Not Available Not Avai lable cefpodoxi me 200 mg tablet Take 1 tablet every 12 hours by oral route. active End date of 07/21/20 Not Available Not Available Not Available aspirin 325 mg tablet Take 1 tablet every day by oral route as needed. 07/01 completed Not Available Not Available Not Available sodium bicarbona te 325 mg tablet Take 2 tablets every day by oral route as directed . 2023 [facility] Not Available Not Available Not Available sucralfat e 1 gram tablet 1 tab by mouth before meals and at night active Started by [facility] in setting of GI bleed 07/19/20 D/C. Not Available Not Available Not Available clopidogr [...] as directed . 2023 [facility] Not Available Not Available Not Available aspirin 81 mg tablet,de layed release Take 1 tablet every day by oral route. 07/20 completed Pt, with acute hemorrag e and GI bleed at 07/13/20 24 [facility] hospital in setting of taking aspirin. Aspirin held at this time pending GI consult. Not Available Not Available Not Available pantopraz ole 40 mg tablet,de layed release Take 1 tablet every day by oral route. active started by [facility] in setting of GI bleed 07/19/20 24 d/c note Not Available Not Available Not Available losartan [...] route as directed . 2023 active Per [facility] EMR Not Available Not Available Not Available [...] Not Available Not Available Not Avai lable Lactobaci llus acidophil us 1 billion cell tablet Take 1 tablet by mouth once daily 2023 active Not Available Not Available Not [...] Not Available Not Available Not Avai lable marijuana (cannabis ) oral edible active Not prescrib ed by this provider , but trialed by patient son and daughter in-law caregive r. Darshan edibles only at this time. Not Available Not Available Not Available Vitals Date Recorded Body height Body mass index (BMI) Body weight Body temperature Oxygen saturation Oxygen saturation in Arterial blood by Pulse oximetry Heart rate Systolic blood pressure Diastolic blood pressure Provider Name and Address Organization Details Last Updated DateTime 147.32 cm 20.4 kg/m2 58599.9 g 97.5 [degF] 97 % 97 % 52 /min 108 mm[Hg] 58 mm[Hg] DEEDEE PITTMAN MA [facility] 08:35:30 Social History Question Answer Notes LastModified by Organizat ion Details LastModified Time Tobacco Smoking Status Current Every Day Smoker Kylah Almonte MA null, [facility] 11/01/2023 11:33:08 Would You Say That, In [...] Of Your Most Recent Tobacco Screening? 05/14/2024 [email or web address] Information n ot available 05/14/2024 How Much Tobacco Do You Smoke? 0.5 PPD [email or web address] Information not available 05/14/2024 Has Tobacco Cessation Counseling Been Provided? Yes Information not available 11/01/2023 On What Date Was Tobacco Cessation Counseling Provided? 05/14/2024 [email or web address] Information not available 05/14/2024 Do You Or [...] trivalent, PF 07/09/[address], [place], [address], [facility] 07/09/2024 11:46:08 COVID-19, mRNA, LNP-S, PF, angie-sucrose, 30 mcg/0.3 mL 07/09/[address], [place], [address], [facility] 07/09/2024 11:46:08 Tdap 07/09/2024 completed [address], [place], [address], [facility] 07/09/2024 11:46:08 Past Encounters Encounter ID Performer Location Encounter Start Date Encounter Closed Date Diagnosis/Indication Diagnosis SNOMED-CT Code Diagnosis ICD10 Code [id number] [address] [facility] [address] [place] [address] 07/09/2024 09:29:21 07/09/2024 10:24:04 Right sided cerebral hemisphere cerebrovascular accident 410342364 I63.9 Hypokalemia 25311839 E87 .6 Essential hypertension 23376827 I10 Sundowning 316752354 F05 Loose stool 056425846 R1 9.5 Unsteady when walking 22 342546 R26.89 Decreased diastolic arterial pressure 61329751 R03.1 Active or passive immunization 583249115 Z23 [id number] MAR[address] [facility] [address] [place] [address] 07/20/2024 08:15:21 07/20/2024 09:24:16 Acute gastrointestinal hemorrhage 92178923 K92.2 Cerebral infarction 4325 72887 I63.9 Acute urin olman tract infection 558610746 N39.0 Hypernatremia 435309614 E87.0 Health Concerns Section Related Observation LastModified by Organization Detai ls LastModified Time None Recorded Concern Status LastModified by Organization Details LastModified Time None Recorded Payers Encounter Date Sequence Insurance Name Policy Number Policy Nicole Covered Member ID Nicole Member ID Guarantor Name 07/20/2024 2 [facility] (MEDICAID) Jennifer Archer [id number] Jennifer Archer 07/20/2024 1 [place] [employer] Jennifer Archer [id number] Jennifer Archer Notes Date Note Type Note Provider Name and Address Organization Details Recorded Time 07/20/2024 text/html HPI Notes: Pt. 74-F, w/dementia, here for transition of care follow up from 07/19/2024 [facility] where she was hospitalized for acute UTI, new acute small [facility] neuro-vascular had recommended medical management. The patient continue to receive ceftriaxone and potassium replacement during the stay. Urine culture grew citrobacter Freundii and the patient will continue antibiotic therapy now with cefpodoxime orally to complete the treatment. The patient H H remained stable on protonix and sucralfate which will continue as outpatient therapy. Creatinine improved to 1.7. Plavix and aspirin are on hold. follow- up CBC and BMP ordered with critical values to PCP. Sodium chloride tablet held d/t Na at 146 this morning and to be resumed as per PCP discretion s/p outpatient blood work The patient will have to see her PCP within 7 days of discharge. Referral to neurology, general surgery made. The patient will be discharged home today with the resumption of all her home health services. [address], [place], [address], [facility]. 07/20/2024 09:53:21 OBGyn Episode No OBEpisode recorded.
--- OUTSIDE RECORDS SUMMARY | 2024-07-22 14:38 | XMS_ITS | Encounter Summary ---
Author Organization [facility] Address [address] [place] [address] Care Team Providers Care Supervisor Sleeping Bag Department Name Role Phone Unavailable Primary Care Provider Unavailabl e Encounter Details Date Type Department Care Team (Late st Contact Info) Description 12/11/2023 Lab Requisition [facility] Pathology & Laboratory Medicine - [facility] [address] [place] [address] Outr Resulting Lab, Provider Social History Tobacco [...] Syphilis Serology Negative Negative 12/12/2023 11:48 EDT [facility] Blood VENOUS BLOOD / Unknown 12/11/2023 11:00 EDT 12/11/2023 21:23 EDT Provider Outr Resulting Lab IMMUNOLOGY A ND SEROLOGY ORDERABLES [facility] [address] [place], [place] [address] documented in this encounter Visit Diagnoses Not on filedocumented in this encounter
--- OUTSIDE RECORDS SUMMARY | 2024-07-22 14:38 | XMS_ITS | Encounter Summary ---
Author Organization [facility] Address [address] [place] [address] Care Team Providers Care Manager Telecom Name Role Phone Unavailable Primary Care Provider Unavailabl e Encounter Details Date Type Department Care Team (Late st Contact Info) Description 12/11/2023 Lab Requisition [facility] Pathology & Laboratory Medicine - [facility] [address] [place] [address] Outr Resulting Lab, Provider Social History Tobacco [...] 4th Generation Negative Negative 12/12/2023 12:15 EDT [facility] Comment:If acute HIV-1 infec tion is suspected in a high risk patient, submit plasma specimen for HIV-1 RNA quantitation test. Blood VENOUS BLOOD / Unknown 12/11/2023 11:00 EDT 12/11/2023 21:23 EDT Narrative [facility] - 12/12/2023 12:15 EDT Fourth Generation assay performed on the Siemens Centaur XPT. Provider Outr Resulting Lab IMMUNOLOGY A ND SEROLOGY ORDERABLES [facility] [address] [place] [address] documented in this encounter Visit Diagnoses Not on filedocumented in this encounter
--- OUTSIDE RECORDS SUMMARY | 2024-07-22 14:38 | XMS_ITS | Clinical Summary ---
Author Organization [facility] Address [address] [place] [address] Care Team Providers Care Instrument Tech Name Role Phone Unavailable Primary Care Provider [...]
--- OUTSIDE RECORDS SUMMARY | 2024-07-22 14:38 | XMS_ITS | Referral Summary ---
Author Organization [facility] Address [address] [place] [address] Care Team Providers Care Can Handler Name Role Phone Unavailable Primary Care Provider Unavailabl e Social History Tobacco Use Types Packs/Day Years Used Date Smoking Tobacco: Never Assessed Sex and Gender Information Value Date Recorded Sex Assigned at Not on file Gender Identity Not on file Sexual Orientation Not on file Plan of Treatment Not on file
--- OUTSIDE RECORDS SUMMARY | 2024-07-22 14:39 | XMS_ITS | Continuity of Care Document ---
Author Organization [place] - [facility], [facility], [facility] Address [address] [place] [address] [address] [place] [address] Assessment No assessment recorded. Plan of Treatment Reminders Order Date Submit Date Provider Last Modified By Organization Details Last Modified Time Details Appointments Annual Wellness Exam 40 2024 02:30P M Eduardo Lainez Not available Not available Not available Lab culture, urine + sensitivi ty 2023 024 [facility] (Registration ), [address] [place] [address] [place], [address], 05/17/2024 08:14:58 microscop ic method, urine 2023 024 [facility] (Registration ), [address] [place] [address] [place], [address], 05/15/2024 08:48:21 urinalysi s, dipstick 2023 024 [email or web address] [facility], [address] [place] [address], [address], [place], [address], 05/14/2024 20:40:44 Referral None recorded. Procedures None recorded. Surgeries None recorded. Imaging None recorded. Medication Orders cefuroxim e axetil 250 mg tablet 2023 024 [facility], [address] [place], [address], 07/01/2024 11:35:09 cefuroxim e axetil 250 mg tablet 2023 024 [facility] Not available 07/01/2024 11:35:09 Patient TargetsNo targets recorded. Patient Instructions Encounter Date Encounter Id Patient Instructions Last Modified By Organization Details Last Modified Time 05/14/2024 [id number] 1. I am concerne d that her symptoms may be related to a urinary tract infection thus I have gone ahead and given her her first tablet of antibiotic tonight and the remaining doses were sent to the [facility] in [place]. She will take this medication morning and [...] , dipst ick Leukocytes Trace Not Available [address] [address], [place], [address], 05/14/2024 20:24:45 05/14/20 24 05/14/2024 urina lysis , dipst ick Nitrite negati ve Not Available [address] [address], [place], [address], 05/14/2024 20:24:45 05/14/20 24 05/14/2024 urina lysis , dipst ick Urobilinogen .2 Not Available [address] [address], [place], [address], 05/14/2024 20:24:45 05/14/20 24 05/14/2024 urina lysis , dipst ick Protein 100 Not Available [address] [address], [place], [address], 05/14/2024 20:24:45 05/14/20 24 05/14/2024 urina lysis , dipst ick pH 5.0 Not Available [address], [place], [address], 05/14/2024 20:24:45 05/14/20 24 05/14/2024 urina lysis , dipst ick Blood Negati ve Not Available [address], [place], [address], 05/14/2024 20:24:45 05/14/20 24 05/14/2024 urina lysis , dipst ick Specific Capay 1.015 Not Available [address], [place], [address], 05/14/2024 20:24:45 05/14/20 24 05/14/2024 urina lysis , dipst ick Ketone Trace Not Available [address], [place], [address], 05/14/2024 20:24:45 05/14/20 24 05/14/2024 urina lysis , dipst ick Bilirubin Small Not Available [address], [place], [address], 05/14/2024 20:24:45 05/14/20 24 05/14/2024 urina lysis , dipst ick Glucose Negati ve Not Available [address], [place], [address], 05/14/2024 20:24:45 05/14/20 24 05/14/2024 urina lysis , dipst ick Appearance Clear Not Available [address], [place], [address], 05/14/2024 20:24:45 05/14/20 24 05/14/2024 urina lysis , dipst ick Color Dark Yellow Not Available [facility] [address], [place], [address], 05/14/2024 20:24:45 06/12/20 24 06/12/2024 x-ray imagi ng ofelia t Patikatie t Name: Martha Payton Unit #: [id number] Loc: ER Thania Meraz er: Lacho Correa M.D. Accoun t #: [id number] Status : REG ER Primar y Care Provid er: FatouYulissa Date of Exam: 05/24 10/15 Sex: F [...] the addres s above. Thank- you. INTERFACE [facility] [address], [place], [address] 06/12/2024 18:34:32 06/12/20 24 06/12/2024 x-ray imagi ng repor t Patikatie t Name: Martha Payton Unit #: [id number] Loc: ER Orderi ng Provid er: Lacho Correa M.D. Accoun t #: [id number] Status : REG ER Primar y [...] the addres s above. Thank- you. INTERFACE [facility] [address], [place], [address] 06/12/2024 18:34:33 06/12/20 24 06/12/2024 CT imagi ng repor t Patikatie t Name: Martha Payton Unit #: [id number] Loc: ER Orderi ng Provid er: Lacho Correa M.D. Accoun t #: [id number] Status : REG ER Primar y Care Provid er: Dana Lainezradhalacy hanh Date of Exam: 05/24 10/15 Sex: [...] REPOSI TORY: [facility] are submit liz to the Nation [...] the addres s above. Thank- you. INTERFACE [facility] [address] [place], [address] 06/12/2024 18:43:33 06/12/20 24 06/12/2024 vrad repor t Patien t Name: Martha Payton Unit #: [id number] Loc: ER Orderi ng Provid er: Accoun t #: [id number] Status : REG ER Primar y [...] GS: ANTERI OR CIRCUL ATION: Right rn international al caroti d artery : Calcif ied plaque with severe stenos is cavern ous right ICA. Right middle cerebr al artery : Modera te to severe stenos is nurse plastics ior M3 branch right MCA. No signif icant stenos is remain lien of the right MCA. Right anteri or cerebr al artery : No occlus ion or signif icant stenos is. No aneury sm. Left rn international al caroti d artery : Calcif ied plaque with modera te stenos is cavern ous left ICA. Left middle cerebr al artery : No occlus ion or signif icant stenos is. No aneury sm. Left anteri or cerebr al artery : No occlus ion or signif icant stenos is. No aneury sm. 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 No aneury sm. Left verteb ral artery : No occlus ion or signif icant stenos is. No aneury sm. Basila r artery : No occlus ion or signif icant stenos is. No aneury sm. Right nurse plastics ior cerebr al artery : No occlus ion or signif icant stenos is. No aneury sm. Left nurse plastics ior cerebr al artery : No occlus ion or signif icant stenos is. No aneury sm. HEAD: Brain: Stable right nurse plastics ior fronta l and pariet al infarc [...] rkable . IMPRES NATASHA: 1. Stable right nurse plastics ior fronta l and pariet al infarc t. 2. 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 3. Calcif ied plaque with modera te stenos is cavern ous left ICA. 4. Modera te to severe stenos is nurse plastics ior M3 branch right MCA. ASSESS MENT: [...] dissec tion or occlus ion. Right rn international al caroti d artery : No stenos is of the extrac ranial segmen t. No dissec tion or occlus ion. Right library assistant al caroti d artery : No occlus ion or stenos is of the origin . Left common caroti d artery : No stenos is. No dissec tion or occlus ion. Left rn international al caroti d artery : No stenos is of the extrac ranial segmen t. No dissec tion or occlus ion. Left library assistant al caroti d artery : No occlus [...] cervic al segmen t of the rn international al caroti d artery is based on NASCET criter ia. Normal is no stenos is. Mild is less than 50% stenos is. Modera te is 50-69% stenos is. Severe is 70% to 99% stenos is. Total occlus ion is no detect able patent lumen. Dictat ed and Authen ticate d by: Abelardo Nagel MD. Orderi ng:P.D ISST Shelby pina MD Access ion#=[id number] Ordere d By: CC: ------ ------ [...] error, please notify us immedi ately at [phone] and return the origin al report to us at the addres s above. Thank- you. [email or web address] [facility] [address], [place], [address] 06/15/2024 15:45:36 06/13/20 24 06/13/2024 vrad repor t Patikatie t Name: Martha Payton Unit #: [id number] Loc: MS Thania barrios Provid er: Accoun t #: [id number] Status : ADM IN Primar y Care Provid er: FatouYulissa hanh Date of Exam: 05/24 11/15 Sex: F [...] MD. Orderi ng:Peyton Zhou MD Access ion#=[id number] Ordere d By: CC: ------ ------ ------ ------ ------ ------ ------ ------ ------ ------ ------ ------ ---- Dictat ed By: Report s vrad 0906 1028 Transc ribed By: Di Merge 0906 This is privil eged, confid ential [...] at the addres s above. Thank- you. [facility] [address] [facility], [address] 06/15/2024 15:45:36 06/13/20 24 06/13/2024 CT imagi ng repor t Patikatie t Name: Martha Payton Unit #: [id number] Loc: MS Thania barrios Provid er: Lacho Correa M.D. Accoun t #: [id number] Status : ADM IN Primar y [...] right side there is calcif ied plaque nurse plastics iorly at the caroti d bulb-b ifurca tion level and there is also calcif ied plaque on the medial and nurse plastics ior saldaña of the proxim al right ICA. Amount of stenos is at this level is estima liz at approx imatel y 40 percen t in the proxim al right ICA. The right ICA is nicely patent in the upper neck. Left caroti d bulb exhibi ts some calcif ied plaque anteri sherry. There is calcif ied plaque on the nurse plastics ior wall the proxim al left ICA. Approx imatel y 30 percen t stenos is at this level. There is also self like plaque at the origin left ICA with more promin ent stenos is at this level, approx imatel y 70 percen t. Left ICA in the upper neck is patent . Storage Wharfage Clerk ior circul ation: Both verteb ral arteri [...] W: Anteri or circul ation: Both rn international al caroti d arteri es are patent in the skull base-c arotid canals . Both intra cavern ous rn international al caroti d arteri es are periph erally calcif ied. There is a signif icant focal stenos is at the juncti on of the intra cavern ous and suprac linoid aspect of the right rn international al caroti d artery with approx imatel [...] or commun icatin g artery . Left nurse plastics ior cerebr al artery is patent withou t signif icant stenos is. There is mild-m oderat e narrow ing in the proxim al right middle cerebr al artery . No intral uminal thromb us seen. No aneury sms. No dissec tion flaps. Storage Wharfage Clerk ior circul ation: The basila r artery ascend s in the midlin e. Distal ly it gives off patent right nurse plastics ior cerebr al artery althou gh there is a modera te stenos is in the nurse plastics ior cerebr al artery a few cm distal to its origin . The left nurse plastics ior cerebr al artery is predom inantl y fed by a nurse plastics ior commun icatin g artery on the left side of the [place]. This that There is no eviden ce of aneury sm at the tip of the basila r artery nor elsewh ere in the [place]. CT BRAIN: Again noted is the right occipi araceli pariet al infarc t. Diffic ult to compar e to the prior study as there was no noncon trast scan done prior to contra st inject ion on the presen t study. Nevert elliott , the amount of probab le petech [...] facili ty are submit liz to the [facility] al Radiol ogy Data Regist ry (NRDR) Dose Index Regist ry (DIR) with the [place] of Radiol ogy (ACR). RADIAT ION OPTIMI ZATION : All CT scans at [facility] use at least one of [...] Johnston M.D. 1545 1545 Transc ribed By: Vicike RODRIGUEZ,Yessenia kendra 1545 This is privil eged, [...] the addres s above. Thank- you. INTERFACE [facility] [address], [place], [address] 06/13/2024 15:50:13 06/13/20 24 06/13/2024 CT imagi ng repor t Patien t Name: Martha Payton Unit #: [id number] Loc: Ordermariola ng Provid er: Jabari Bustamante Accoun t #: [id number] Status : ADM IN Primar [...] ---- Dictat ed By: Aden Johnston M.D. 160 160 Transc ribed By: Vickie RODRIGUEZ,How kendra 160 This is privil eged, confid ential inform [...] the addres s above. Thank- you. INTERFACE [facility] [address], [place], [address] 06/13/2024 16:16:16 06/14/20 24 06/14/2024 MRI imagi ng repor t Patien t Name: Martha Payton Unit #: [id number] Loc: MS Orderi ng Provid er: Jabari Bustamante Accoun t #: [id number] Status : ADM IN Primar [...] error, please notify us immedi ately at [phone] and return the origin al report to us at the addres s above. Thank- you. INTERFACE [address] [place] [id number], [place], [address] 06/14/2024 12:37:22 06/14/20 24 06/14/2024 ultra sound imagi ng repor t Obdulia wilde Name: Martha Payton Unit #: [id number] Loc: Ordermariola ng Provid er: Jabari Bustamante Accoun t #: [id number] Status : ADM IN [facility] er: Yulissa Lainez Date of Exam: 05/24 12/13 Sex: F Admiss ion Date: : 1949 Age: 73 ------ ------ --- APPROV ED REPORT ------ ------ -- EXAM: Compre hensiv e 2D, Dopple r, and color- flow Echoca rdiogr am Obdulia wilde Locati on: In-Pat ient Room/B ed: 208 Sonogr apher: Henrique Oneill RDCS (AE) Indica tions: CVA Echo Enhanc [...] the addres s above. Thank- you. INTERFACE [place] [id number], [place], [address] 06/14/2024 15:22:54 07/16/20 24 07/16/2024 CT imagi ng repor t Obdulia wilde Name: Martha Payton Unit #: [id number] Loc: ER Orderi ng Provid er: Stephania Hagan t #: [id number] Status : REG ER Primar y [...] Calvar ium: Normal . Visual ized Parana chino sinuse s/Mast oids: Clear. Soft Tissue s: [...] gs were discus sed with Alliso n Lanette Garland d at 2:45 p.m. on 2023. RADIAT ION DOSE DELIVE RED: 875.73 mGy.cm Total DLP DATA REPOSI TORY: All CT [facility] are submit liz to the [facility] al Radiol ogy Data Regist ry (NRDR) Dose Index Regist ry (DIR) with the [place] of Radiol ogy (ACR). RADIAT ION OPTIMI ZATION : All CT scans at [facility] use at least one of [...] ---- Dictat ed By: Satinder Odonnell M.D. 1446 1445 Transc ribed By: Satinder Odonnell 1445 [...] the addres s above. Thank- you. INTERFACE [facility] [address], [place], [address] 07/16/2024 14:51:01 07/16/2007/16/2024 x-ray imagi ng repor t Obdulia t Name: Martha Payton Unit #: [id number] Loc: ER Orderi ng Provid er: Stephania Hagan Accisael t #: [id number] Status : REG ER Primar y [...] ION DOSE DELIVE RED: Ordere d By: Stephanai Hagan CC: ------ ------ ------ ------ ------ [...] the addres s above. Thank- you. INTERFACE [facility] [address], [place], [address] 07/16/2024 14:58:08 07/16/2007/16/2024 CT imagi ng repor t Obdulia wilde Name: Martha Payton Unit #: [id number] Loc: ER Orderi ng Provid er: Stephania Hagan Accoun t #: [id number] Status : REG ER Primar y [...] Calvar ium: Normal . Visual ized Parana chino sinuse s/Mast oids: Clear. Soft Tissue s: Unrema rkable . IMPRES NATASHA: No change in appear ance of the hemorr raul compar ed [facility]. RADIAT ION DOSE DELIVE RED: 819.49 mGy.cm Total DLP DATA REPOSI TORY: All CT scans at this facili ty are submit liz to the [facility] al Radiol ogy Data Regist ry (NRDR) Dose Index Regist ry (DIR) with the [place] of Radiol ogy (ACR). RADIAT ION OPTIMI ZATION : All CT scans at [facility] use at least one of [...] ---- Dictat ed By: Satinder Odonnell M.D. 172 172 Transc ribed By: Satinder Odonnell 1725 This is privil eged, confid ential inform ation intend ed only for the provid er named. Any use or distri bution by any person other than this provid er is strict ly prohib ited. If you receiv e this report in error, please notify us immcayden barragan at and return the origin al report to us at the addres s above. Thank- you. INTERFACE [facility] [address], [place], [address] 07/16/2024 17:29:32 Result Notes None recorded. Problems Name Problem SNOMED Code Status Onset Date Resolution Date Notes Provider Name and Address Organization Details Recorded Time Poor short-term memory 474622982 Active [address], [place], [address], [facility] 4 10:28:13 Essential hypertensi on 75117214 Active [address], [place], [address], [facility] 4 10:29:23 Blood glucose outside reference range 957230267 Active [address], [place], [address], [facility] 4 10:30:43 Iritis 23113013 Active [address], [place], [address], [facility] 4 10:31:43 Tobacco dependence caused by cigarettes 458067699722 52869 Active [address], [place], [address], [facility] 4 12:23:42 Adjustment disorder with depressed mood 27871593 Active [address], [place], [address], [facility] 12:26:28 Prediabete s 789238757 Active 2023 5.7% on [address], [place], [address], [facility] 07:52:17 History of coronary artery bypass grafting 882037767 Active 2009 In 2010 per prior med recs [address], [place], [address], [facility] 14:53:13 Unexplaine d weight loss 910885127 Active [address], [place], [address], [facility] 13:43:55 Chronic cough 06408008 Active [address], [place], [address], [facility] 13:44:00 Pain of left shoulder joint 330344015580 41604 Active [address], [place], [address], [facility] 13:44:16 Hyperlipid emia 89798636 Active [address], [place], [address], [facility] 13:48:11 Chronic obstructiv e pulmonary disease 33572675 Active [address], [place], [address], [facility] 4 13:49:36 Lacunar infarction 015631373 Active [address], [place], [address], [facility] 4 18:17:27 Bradycardi a 52939352 Active [address], [place], [address], [facility] 4 18:36:12 Chronic kidney disease stage 3B 731071430 Active 2023 NOted in 1 Note in prior MR as stage 3 D/T HTN. Plan to control BP as care plan. 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 459315953 Active [address], [place], [address], [facility] 08:09:53 Hypokalemi a 88039471 Active [address], [place], [address], [facility] 08:10:59 Sundowning 903529487 Active [address], [place], [address], [facility] 08:12:54 Loose stool 758354979 Active [address], [place], [address], [facility] 09:45:26 Unsteady when walking 74922867 Active [address], [place], [address], [facility] 10:02:59 Decreased diastolic arterial pressure 96391664 Active [address], [place], [address], [facility] 10:04:18 Acute gastrointe stinal hemorrhage 59025227 Active [address], [place], [address], [facility] 06:49:56 Cerebral infarction 369562614 Active [address], [facility] [address] , [facility] 4 06:50:08 Acute urinary tract infection 132102574 Active 2023 [address], [facility] [address] , [facility] 4 06:52:30 Hypernatre sanaz 055744942 Active [address], [facility] [address] , [facility] 4 06:55:39 Problem Notes None recorded. Medical Equipment None Reported. Allergies Allergen ID Allergen Name Allergen Category Reaction Reaction Severity Criticality Documentation Date Start Date Code Code System Note Provider Name and Address Organization Details Recorded Time 28685 chlorthal idone medicatio n Not available Not available [facility] 01/28/[address], [facility] [address] , [facility] 4 17:56:24 62173 hydrochlo rothiazid e medicatio n Not available Not available high 01/28/[address], [place], [address] [place] [address] 4 17:56:38 Medications Name Sig Start Date Stop Date Status Note LastModified by Organization Details LastModified Time losartan 50 mg tablet Take 1 tablet twice a day by oral route as directed . 2023 active Per [employer] EMR Not Available Not Available Not Available quetiapin e 25 mg tablet 1 tablet by mouth each night 2023 active Not Available Not Available Not Avai lable atorvasta tin 80 mg tablet Take 1 tablet every day by oral route at bedtime. 2023 active updated from [facility] Not Available Not Available Not Available [...] route as directed . 2023 active per [facility] [employer] E[facility] Not Available Not Available Not Available sucralfat e 1 gram tablet 1 tab by mouth before meals and at night active Started by [facility] in setting of GI bleed 07/19/20 D/C. [...] as directed . 2023 active Updated from [facility] Not Available Not Available Not Available aspirin 81 mg tablet,de layed release Take 1 tablet every day by oral route. 07/20 completed Pt, with acute hemorrag e and GI bleed at 07/13/20 [facility] hospital in setting of taking aspirin. Aspirin held at this time pending GI consult. Not Available Not Available Not Available pantopraz ole 40 mg tablet,de layed release Take 1 tablet every day by oral route. active started by [facility] in setting of GI bleed 07/19/20 d/c note Not Available Not Available Not [...] route as directed . 2023 active Per [facility] EMR Not Available Not Available Not Available [...] patient son and daughter in-law caregive r. [employer] ed[employer] only at this time. Not Available [...] Last Updated DateTime 147.32 cm 20.5 kg/m2 84898.4 5 g 98.1 [degF] 99 % 99 % 62 /min 18 /min 195 mm[Hg] 63 mm[Hg] 211 mm[Hg] 102 mm[Hg] 210 mm[Hg] 75 mm[Hg] 199 mm[Hg] 66 mm[Hg] Keesha Zaragoza MA [facility] 21:02:19 Social History Question Answer Notes LastModified by Organizat ion Details LastModified Time Tobacco Smoking Status Current Every Day Smoker [place], [facility] 11/01/2023 11:33:08 Would You Say That, [...] Much Tobacco Do You Smoke? 0.5 PPD [email or web address] Information not available 05/14/2024 Has Tobacco Cessation Counseling Been Provided? Yes Information not available 11/01/2023 On What Date Was Tobacco Cessation Counseling Provided? 05/14/2024 [email or web address] Information not available 05/14/2024 Do You Or [...] trivalent, PF 07/09/[address], [place], [address], [facility] 07/09/2024 11:46:08 COVID-19, mRNA, LNP-S, PF, angie-sucrose, 30 mcg/0.3 mL 07/09/[address], [place], [address], [facility] 07/09/2024 11:46:08 Tdap 07/09/[address], [facility] [address], [facility]. 07/09/2024 11:46:08 Past Encounters Encounter ID Performer Location Encounter Start Date Encounter Closed Date Diagnosis/Indication Diagnosis SNOMED-CT Code Diagnosis ICD10 Code [id number] ISATU ZAMORA PA-C [address] [place] [address] 05/14/2024 18:33:21 05/14/2024 21:16:51 Pyuria 5855385 R82.81 Health Concerns Section Related Observation LastModified by Organization Detai ls LastModified Time None Recorded Concern Status LastModified by Organization Details LastModified Time None Recorded Payers Encounter Date Sequence Insurance Name Policy Number Policy Nicole Covered Member ID Nicole Member ID Guarantor Name 05/14/[address] [facility] (MEDICAID) Jennifer Archer [id number] Jennifer Archer 05/14/2024 1 MEDICARE [place]: [employer] [facility] Jennifer Archer [id number] Jennifer Archer Notes Date Note Type [...] clear at this time. [address], [place], [id number], [facility]. 05/15/2024 13:54:05 OBGyn Episode No OBEpisode recorded.
== END 2024-07-22 14:37 | disposition home or self-care (01) ==
LOC: NCHCN 14:36
PROVIDERS: PCP Student in an Organized Health Care Education/Training Program; Visit Provider Student in an Organized Health Care Education/Training Program
DX: D64.9 Anemia, unspecified (principal)
CPT/HCPCS: 82272; 82274

== ENCOUNTER 2024-07-27 16:20 | Outpatient (REF) | payer MEDICARE, MEDICAID, SELFPAY ==
--- OUTSIDE RECORDS SUMMARY | 2024-07-27 16:26 | XMS_ITS | Encounter Summary ---
Author Organization [facility] Address [address] [place] [address] Care Team Providers Care Time Broker Name Role Phone Unavailable Primary Care Provider Unavailabl e Encounter Details Date Type Department Care Team (Late st Contact Info) Description 12/11/2023 Lab Requisition [facility] Pathology & Laboratory Medicine - [facility] [address] [place] [address] Outr Resulting Lab, Provider Social History Tobacco [...] Syphilis Serology Negative Negative 12/12/2023 11:48 EDT [facility] Blood VENOUS BLOOD / Unknown 12/11/2023 11:00 EDT 12/11/2023 21:23 EDT Provider Outr Resulting Lab IMMUNOLOGY A ND SEROLOGY ORDERABLES [facility] [address], [place] [id number] documented in this encounter Visit Diagnoses Not on filedocumented in this encounter
--- OUTSIDE RECORDS SUMMARY | 2024-07-27 16:26 | XMS_ITS | Referral Summary ---
Author Organization [facility] Address [address] [place] [address] Care Team Providers Care Senior Stereo Compiler Team Lead Name Role Phone Unavailable Primary Care Provider Unavailabl e Social History Tobacco Use Types Packs/Day Years Used Date Smoking Tobacco: Never Assessed Sex and Gender Information Value Date Recorded Sex Assigned at Not on file Gender Identity Not on file Sexual Orientation Not on file Plan of Treatment Not on file
--- OUTSIDE RECORDS SUMMARY | 2024-07-27 16:26 | XMS_ITS | Encounter Summary ---
Author Organization [facility] Address [address] [place] [address] Care Team Providers Care Textile Converter Name Role Phone Unavailable Primary Care Provider Unavailabl e Encounter Details Date Type Department Care Team (Late st Contact Info) Description 12/11/2023 Lab Requisition [facility] Pathology & Laboratory Medicine - [facility] [address] [place] [address] Outr Resulting Lab, Provider Social History Tobacco [...] 4th Generation Negative Negative 12/12/2023 12:15 EDT [facility] Comment:If acute HIV-1 infec tion is suspected in a high risk patient, submit plasma specimen for HIV-1 RNA quantitation test. Blood VENOUS BLOOD / Unknown 12/11/2023 11:00 EDT 12/11/2023 21:23 EDT Narrative [facility] - 12/12/2023 12:15 EDT Fourth Generation assay performed on the Siemens Centaur XPT. Provider Outr Resulting Lab IMMUNOLOGY A ND SEROLOGY ORDERABLES [facility] [address] [place] [id number] documented in this encounter Visit Diagnoses Not on filedocumented in this encounter
--- OUTSIDE RECORDS SUMMARY | 2024-07-27 16:26 | XMS_ITS | Clinical Summary ---
Author Organization [facility] Address [address] [place] [address] Care Team Providers Care Information Security Name Role Phone Unavailable Primary Care Provider [...]
--- OUTSIDE RECORDS SUMMARY | 2024-07-27 16:27 | XMS_ITS | Data Portability ---
Author Organization [place] - [facility] [place] [address] Assessment Encounter Date Assessment Date Assessment LastModified by Organization Details LastModified Time 01/28/2024 01/28/2024 Appointment slightly scattered with unexplained weight loss, so Donna jordan man agreeable to have pt. back in office for EKG in light of Lacunar Infarct/Bradycard ia today. We will hold off on cardiac monitoring order to do the EKG in office first. [email or web address] Not available 01/28/2024 18:41:23 07/09/2024 07/09/2024 Supports at home : - OT, Nursing, Social Work room worker, Donna please w/supports. For Annual in September: Consider DEXA/risk factors of former smoker: Mammography: Life expectancy < 10 years, especially given recent stroke and advancing dementia, won't recommend future mammograms unless symptomatic. - Advanced Directive not on file [email or web address] Not available 07/09/2024 11:48:19 07/20/2024 07/20/2024 Care mgmt note 07/19/2024 states,Discharge home with resumption of full [facility] services and [facility] supports. Follow up with PCP and discharge plan of care as recommended. Donna will provide transportation. Patient/Family Education Needs: Review discharge instructions, limitations, medications and plan to follow up with community providers. Discuss ask me three. Services Needed at Discharge: Home Health Care Services (Resume [facility] RN, PT, OT, [employer]) and Homemaking Services (Provided by [facility]) Donna reports she has to call to resume services. General surgery appt. w/Dr. Young 08/02/2024: - Has Neuro appt. w/Dr. Mondragon 07/26/2024 Pt. likely overstimulated in hospital, now can rest at home so discussed with Donna she might be catching up on some sleep. [email or web address] Not available 07/20/2024 09:53:12 Plan of Treatment Reminders Order Date Submit Date Provider Last Modified By Organization Details Last Modified Time Details Appointments Annual Wellness Exam 40 2024 02:30P M Eduardo Fatou Not available Not available Not available Lab CBC w/ auto diff - 1 SST, 1 LAV [address] [facility] (Registration ), [address] [place] [address] [place], [address], 01/28/2024 21:28:19 CMP, serum or plasma [address] [facility] (Registration ), [address] [place] [address] [place], [address], 01/28/2024 21:28:19 TSH + free T4, serum 2023 024 [facility] [address] [place] [address] [place], [address], 02/04/2024 10:03:18 lipid panel, serum 2023 024 [email or web address]), [address] [place] [address] [place], [address], 05/25/2024 11:29:30 culture, urine + sensitivi ty 2023 024 [facility] (Registration ), [address] [place] [address] [place], [address], 05/17/2024 08:14:58 microscop ic method, urine 2023 024 [facility] (Registration ), [address] [place] [address] [place], [address], 05/15/2024 08:48:21 urinalysi s, dipstick 2023 024 [email or web address] [facility], [address], [address], [place], [address], 05/14/2024 20:40:44 CBC w/ auto diff 2023 024 [facility] (Registration ), [address] [place] [address] [place], [address], 07/09/2024 16:14:29 BMP, serum or plasma [address] [facility] (Registration ), [address] [place] [address] [place], [address], 07/16/2024 16:54:56 magnesium , serum or plasma 2023 024 [email or web address] (Registration ), [address] [place] [address] [place], [address], 07/16/2024 16:55:13 CBC w/ auto diff 2023 024 [facility] (Registration ), [address] [place] [address] [place], [address], 07/20/2024 16:04:47 BMP, serum or plasma 2023 024 [facility], [address] , [place], [address], 07/21/2024 08:27:59 magnesium , serum or plasma [address] [facility] (Registration ), [address] [place] [address] [place], [address], 07/27/2024 09:31:07 Referral None recorded. Procedures None recorded. Surgeries None recorded. Imaging MR, angiogram , head + neck, w/wo contrast - Pt. with incidenta l finding of lacunar infarct on 01/19/2024 MRI of head ordered for cognitive decline, but no acute symptoms change in last 4-months per caregiver report that correlate with stroke symptoms. 2023 024 [email or web address] [facility] [address], [place], [address], 02/02/2024 08:16:45 US, echocardi ogram - Pt. with 01/19/2024 incidenta l finding of lacunar infarct on Brain MRI. Pt.withou t known A-fib, but does have extensive smoking history. 2023 024 [email or web address] [facility] [address], [place], [address], 03/09/2024 14:42:08 CT, chest, w/o contrast - [...] 2023 024 [email or web address] [facility], [address], [place], [address], 03/10/2024 10:39:10 Medication Orders Ventolin HFA 90 mcg/actua tion aerosol inhaler 2023 024 [id number], [address] [place], [place], [phone], 01/28/2024 18:04:41 cefuroxim e axetil 250 mg tablet 2023 024 [email or web address] [facility], [address] [place], [address], 07/01/2024 11:35:09 cefuroxim e axetil 250 mg tablet 2023 024 [email or web address] Not available 07/01/2024 11:35:09 psyllium husk 0.4 gram capsule 10/2023 [facility] #27855, [address] [place], [place], [phone], 07/09/2024 11:47:17 trazodone 50 mg tablet 2023 [facility] #60458, [address] [place], [place], [id number], 07/09/2024 11:47:17 Lactobaci llus acidophil us 1 billion cell tablet 2023 [facility] #54511, [address] [place], [place], [phone], 07/20/2024 09:06:11 Patient TargetsNo targets recorded. Patient Instructions Encounter Date Encounter Id Patient Instructions Last Modified By Organization Details Last Modified Time 05/14/2024 [id number] 1. I am concerne d that her symptoms may be related to a urinary tract infection thus I have gone ahead and given her her first tablet of antibiotic tonight and the remaining doses were sent to the [facility] in [place]. She will take this medication morning and [...] results. [email or web address] Not available 05/14/2024 20:58:45 07/09/2024 [id number] Keep the environment dark during the night [...] Trial of [email or web address] Not available 07/09/2024 10:05:30 07/20/2024 [id number] Continue to hold aspirin. [email or web address] Not available 07/20/2024 09:14:21 Reason for Referral None Reported. Results Created Date Observation Date Name Description Value Unit Range Abnormal Flag Note LastModifiedBy Organization Detail LastModifiedTime 01/28/2001/28/2024 COMPL ETE BLOOD COUNT W/DIF F WBC 8.22 10_3/ uL 4.4-10 .8 normal Not Available [address] [place], [address] 01/28/2024 19:08:00 01/28/20 24 01/28/2024 COMPL ETE BLOOD COUNT W/DIF F RBC 4.10 10_6/ uL 3.93-5 .22 normal Not Available [address] [place], [address] 01/28/2024 19:08:00 01/28/20 24 01/28/2024 COMPL ETE BLOOD COUNT W/DIF F HGB 12.6 g/dL 11.2-1 5.7 normal Not Available [address] [place], [address] 01/28/2024 19:08:00 01/28/20 24 01/28/2024 COMPL ETE BLOOD COUNT W/DIF F HCT 36.2 % 36.0-4 6.0 normal Not Available [address] [place], [address] 01/28/2024 19:08:00 01/28/20 24 01/28/2024 COMPL ETE BLOOD COUNT W/DIF F MCV 88 fL 80-95 normal Not Available Marilin oliver [address] [place], [address] 01/28/2024 19:08:00 01/28/20 24 01/28/2024 COMPL ETE BLOOD COUNT W/DIF F MCH 30.7 pg 27.0-3 3.0 normal Not Available [address] [place], [address] 01/28/2024 19:08:00 01/28/20 24 01/28/2024 COMPL ETE BLOOD COUNT W/DIF F MCHC 34.8 % 32.0-3 6.0 normal Not Available [address] [place], [address] 01/28/2024 19:08:00 01/28/20 24 01/28/2024 COMPL ETE BLOOD COUNT W/DIF F RDW 12.6 % 11.7-1 4.6 normal Not Available [address] [place], [address] 01/28/2024 19:08:00 01/28/20 24 01/28/2024 COMPL ETE BLOOD COUNT W/DIF F platelet count 241 10_3/ uL 130-40 0 normal Not Available [address] [place], [address] 01/28/2024 19:08:00 01/28/20 24 01/28/2024 COMPL ETE BLOOD COUNT W/DIF F MPV 11.8 fL 8.0-11 .0 high Not Available [address] [place], [address] 01/28/2024 19:08:00 01/28/20 24 01/28/2024 COMPL ETE BLOOD COUNT W/DIF F neutrophils % 54.7 % Not Available [address] [place], [address] 01/28/2024 19:08:00 01/28/20 24 01/28/2024 COMPL ETE BLOOD COUNT W/DIF F lymphocytes % 35.4 % Not Available [address] [place], [address] 01/28/2024 19:08:00 01/28/20 24 01/28/2024 COMPL ETE BLOOD COUNT W/DIF F monocytes % 6.9 % Not Available [address] [place], [address] 01/28/2024 19:08:00 01/28/20 24 01/28/2024 COMPL ETE BLOOD COUNT W/DIF F eosinophils % 2.2 % Not Available [address] [place], [address] 01/28/2024 19:08:00 01/28/20 24 01/28/2024 COMPL ETE BLOOD COUNT W/DIF F basophils % 0.6 % Not Available [address] [place], [address] 01/28/2024 19:08:00 01/28/20 24 01/28/2024 COMPL ETE BLOOD COUNT W/DIF F immature grans % 0.2 % Not Available [facility] [email or web address] [place], [address] 01/28/2024 19:08:00 01/28/20 24 01/28/2024 COMPL ETE BLOOD COUNT W/DIF F nucleated RBC 0.0 % 0.0-0. 3 normal Not Available [address] [place], [address] 01/28/2024 19:08:00 01/28/20 24 01/28/2024 COMPL ETE BLOOD COUNT W/DIF F absolute neutrophil count 4.49 10_3/ uL 1.2-6. 7 normal Not Available [address] [place], [address] 01/28/2024 19:08:00 01/28/20 24 01/28/2024 COMPL ETE BLOOD COUNT W/DIF F absolute lymphocyte count 2.91 10_3/ uL 1.2-3. 4 normal Not Available [address] [place], [address] 01/28/2024 19:08:00 01/28/20 24 01/28/2024 COMPL ETE BLOOD COUNT W/DIF F absolute monocyte count 0.57 10_3/ uL 0.1-0. 8 normal Not Available [address] [place], [address] 01/28/2024 19:08:00 01/28/20 24 01/28/2024 COMPL ETE BLOOD COUNT W/DIF F absolute eosinophil count 0.18 10_3/ uL 0.0-0. 7 normal Not Available [address] [place], [address] 01/28/2024 19:08:00 01/28/20 24 01/28/2024 COMPL ETE BLOOD COUNT W/DIF F absolute basophil count 0.05 10_3/ uL 0.0-0. 2 normal Not Available [address] [place], [address] 01/28/2024 19:08:00 01/28/20 24 01/28/2024 COMPR EHENS JR METAB OLIC PANEL calcium 9.6 mg/dL 8.5-10 .1 normal Not Available [address] [place], [address] 01/28/2024 20:28:19 01/28/20 24 01/28/2024 COMPR EHENS JR METAB OLIC PANEL glucose 148 mg/dL 74-106 high Not Available Marilin oliver [address] [place], [address] 01/28/2024 20:28:19 01/28/20 24 01/28/2024 COMPR EHENS JR METAB OLIC PANEL BUN 25 mg/dL 7-18 high Not Available Marilin [address] [place], [address] 01/28/2024 20:28:19 01/28/20 24 01/28/2024 COMPR EHENS JR METAB OLIC PANEL creatinine 1.6 mg/dL 0.55-1 .02 high Not Available [address] [place], [address] 01/28/2024 20:28:19 01/28/20 24 01/28/2024 COMPR EHENS [...] young er-ag ed adult s. Not Available [address] [place], [address] 01/28/2024 20:28:19 01/28/20 24 01/28/2024 COMPR EHENS JR METAB OLIC PANEL total protein 7.3 g/dL 6.4-8. 2 normal Not Available [address] [place], [address] 01/28/2024 20:28:19 01/28/20 24 01/28/2024 COMPR EHENS JR METAB OLIC PANEL albumin 4.1 g/dL 3.4-5. 0 normal Not Available [address] [place], [address] 01/28/2024 20:28:19 01/28/20 24 01/28/2024 COMPR EHENS JR METAB OLIC PANEL bilirubin, total 0.3 mg/dL 0.2-1. 0 normal Not Available [address] [place], [address] 01/28/2024 20:28:19 01/28/20 24 01/28/2024 COMPR EHENS JR METAB OLIC PANEL alk phos 108 U/L 46-116 normal Not Available [address] [place], [address] 01/28/2024 20:28:19 01/28/20 24 01/28/2024 COMPR EHENS JR METAB OLIC PANEL sodium 142 mmol/ L 136-14 5 normal Not Available [address] [place], [address] 01/28/2024 20:28:19 01/28/20 24 01/28/2024 COMPR EHENS JR METAB OLIC PANEL potassium 3.9 mmol/ L 3.5-5. 1 normal Not Available [address] [place], [address] 01/28/2024 20:28:19 01/28/20 24 01/28/2024 COMPR EHENS JR METAB OLIC PANEL chloride 105 mmol/ L 98-107 normal Not Available [address] [place], [address] 01/28/2024 20:28:19 01/28/20 24 01/28/2024 COMPR EHENS JR METAB OLIC PANEL CO2 21.6 mmol/ L 21.0-3 2.0 normal Not Available [address] [place], [address] 01/28/2024 20:28:19 01/28/20 24 01/28/2024 COMPR EHENS JR METAB OLIC PANEL anion gap 15.4 mmol/ L 3-11 high Not Available [address] [place], [address] 01/28/2024 20:28:19 01/28/20 24 01/28/2024 COMPR EHENS JR METAB OLIC PANEL AST 14 U/L 15-37 low Not Available Marilin oliver [address] [place], [address] 01/28/2024 20:28:19 01/28/20 24 01/28/2024 COMPR EHENS JR METAB OLIC PANEL ALT 18 U/L 14-59 normal Not Available Marilin oliver [address] [place], [address] 01/28/2024 20:28:19 01/28/20 24 01/28/2024 TSH TSH 1.23 uIU/m L 0.36-3 .74 normal Not Available [address] [place], [address] 01/28/2024 20:28:20 01/28/20 24 01/28/2024 FREE T4 free T4 0.93 NG/dL 0.76-1 .46 normal Not Available [address] [place], [address] 01/28/2024 20:28:20 05/14/20 24 05/14/2024 MICRO SCOPI C FINDI NGS WBC 10-20 hpf 0-5 abnormal Not Available [facility] (Registration ) [address] [place] [address] [place], [address], 05/14/2024 21:28:28 05/14/20 24 05/14/2024 MICRO SCOPI C FINDI NGS RBC 3-5 hpf 0-2 abnormal Not Available [facility] (Registration ) [address] [place] [address] [place], [address], 05/14/2024 21:28:28 05/14/20 24 05/14/2024 MICRO SCOPI C FINDI NGS epithelial cells Modera te hpf negati ve Not Available [facility] (Registration ) [address] [place] [address] [place], [address], 05/14/2024 21:28:28 05/14/20 24 05/14/2024 MICRO SCOPI C FINDI NGS bacteria Modera te hpf negati ve Not Available [facility] (Registration ) [address] [place] [address] [place], [address], 05/14/2024 21:28:28 05/14/20 24 05/14/2024 MICRO SCOPI C FINDI NGS crystals Negati ve hpf negati ve Not Available [facility] (Registration ) [address] [place] [address] [place], [address], 05/14/2024 21:28:28 05/14/20 24 05/14/2024 MICRO SCOPI C FINDI NGS mucus Negati ve negati ve Not Available [facility] (Registration ) [address] [place] [address] [place], [address], 05/14/2024 21:28:28 05/14/20 24 05/14/2024 MICRO SCOPI C FINDI NGS casts Negati ve lpf negati ve Not Available [facility] (Registration ) [address] [place] [address] [place], [address], 05/14/2024 21:28:28 05/14/20 24 05/14/2024 MICRO SCOPI C FINDI NGS C S indicated? C S Done As Ordere d Not Available [facility] (Registration ) [address] [place] [address] [place], [address], 05/14/2024 21:28:28 05/14/20 24 05/16/2024 URINE CULTU RE urine culture Urine Cultu re Proba ble conta minat ed colle ction APPEA DEBBIE Mixed Gram Posit jr Haylee COLON Y COUNT Not Available [facility] (Registration ) [address] [place] [address] [place], [address], 05/16/2024 10:35:04 05/14/20 24 05/16/2024 URINE CULTU RE urine culture colon ies/m L 50,00 0 - 100,0 00 Day 1 Resul t ISOLA RAISA BELOW O:GPF M (ORGA NISM ID: [id number]) - GRAM POSIT JR HAYLEE ,MIXE D Urine Cultu re (ORGA NISM ID: 1.1) - COLON Y COUNT (ORGA NISM ID: 1.1) - 50,00 0 - 100,0 00 Not Available [facility] (Registration ) [address] [place] [address] [place], [address], 05/16/2024 10:35:04 05/14/20 24 05/17/2024 URINE CULTU RE urine culture Urine Cultu re Proba ble conta minat ed colle ction APPEA DEBBIE Mixed Gram Posit jr Haylee APPEA DEBBIE Mixed Gram Posit jr Haylee COLON Y COUNT Not Available [facility] (Registration ) [address] [place] [address] [place], [address], 05/17/2024 10:00:22 05/14/20 24 05/17/2024 URINE CULTU [...] ID: [id number]) - >100, 000 Not Available [facility] (Registration ) [address] [place] [address] [place], [address], 05/17/2024 10:00:22 05/14/20 24 05/14/2024 urina lysis , dipst ick Leukocytes Trace Not Available [address], [place], [address], 05/14/2024 20:24:45 05/14/20 24 05/14/2024 urina lysis , dipst ick Nitrite negati ve Not Available [address], [place], [address], 05/14/2024 20:24:45 05/14/20 24 05/14/2024 urina lysis , dipst ick Urobilinogen .2 Not Available [address], [place], [address], 05/14/2024 20:24:45 05/14/20 24 05/14/2024 urina lysis , dipst ick Protein 100 Not Available [address], [place], [address], 05/14/2024 20:24:45 05/14/20 24 05/14/2024 urina lysis , dipst ick pH 5.0 Not Available [address], [place], [address], 05/14/2024 20:24:45 05/14/20 24 05/14/2024 urina lysis , dipst ick Blood Negati ve Not Available [address], [place], [address], 05/14/2024 20:24:45 05/14/20 24 05/14/2024 urina lysis , dipst ick Specific [place] 1.015 Not Available [address], [place], [address], 05/14/2024 20:24:45 05/14/20 24 05/14/2024 urina lysis , dipst ick Ketone Trace Not Available [address], [place], [address], 05/14/2024 20:24:45 05/14/20 24 05/14/2024 urina lysis , dipst ick Bilirubin Small Not Available [address], [place], [address], 05/14/2024 20:24:45 05/14/20 24 05/14/2024 urina lysis , dipst ick Glucose Negati ve Not Available [address], [place], [address], 05/14/2024 20:24:45 05/14/20 24 05/14/2024 urina lysis , dipst ick Appearance Clear Not Available [address], [place], [address], 05/14/2024 20:24:45 05/14/20 24 05/14/2024 urina lysis , dipst ick Color Dark Yellow Not Available [address], [place], [address], 05/14/2024 20:24:45 06/12/20 24 06/12/2024 URINE DRUG SCREE N ([facility] ) methadone Negati ve negati ve Not Available [address] [place], [address] 06/12/2024 20:21:43 06/12/20 24 06/12/2024 URINE DRUG SCREE N ([facility] ) benzodiazepi sharad Negati ve negati ve Benzo diaze pines are exten sivel y metab olize d and the paren t compo und may not be detec liz in urine . If clini shea suspi cion is high, pleas e notif y Lab for send- out testi ng. Not Available [address] [place], [address] 06/12/2024 20:21:43 06/12/20 24 06/12/2024 URINE DRUG SCREE N ([facility] ) cocaine Negati ve negati ve Not Available [address] [place], [address] 06/12/2024 20:21:43 06/12/20 24 06/12/2024 URINE DRUG SCREE N ([facility] ) amphetamines Negati ve negati ve Not Available [address] [place], [address] 06/12/2024 20:21:43 06/12/20 24 06/12/2024 URINE DRUG SCREE N ([facility] ) tetrahydroca nnabinol Negati ve negati ve Not Available [address] [place], [address] 06/12/2024 20:21:43 06/12/20 24 06/12/2024 URINE DRUG SCREE N ([facility] ) opiates Negati ve negati ve Not Available [address] [place], [address] 06/12/2024 20:21:43 06/12/20 24 06/12/2024 URINE DRUG SCREE N ([facility] ) barbiturates Negati ve negati ve Not Available [address] [place], [address] 06/12/2024 20:21:43 06/12/20 24 06/12/2024 URINE DRUG [...] hours of repor t date if you alva e confi rmati on. Presc ribed medic ation s may give posit jr resul ts and must be consi dered prior to inter preta tion of these resul ts. Not Available [address] [place], [address] 06/12/2024 20:21:43 06/12/20 24 06/12/2024 MICRO SCOPI C FINDI NGS WBC Negati ve hpf 0-5 Not Available [address] [place], [address] 06/12/2024 20:10:41 06/12/20 24 06/12/2024 MICRO SCOPI C FINDI NGS RBC Negati ve hpf 0-2 Not Available [address] [place], [address] 06/12/2024 20:10:41 06/12/20 24 06/12/2024 MICRO SCOPI C FINDI NGS epithelial cells Rare hpf negati ve Not Available [address] [place], [address] 06/12/2024 20:10:41 06/12/20 24 06/12/2024 MICRO SCOPI C FINDI NGS bacteria Rare hpf negati ve Not Available [address] [place], [address] 06/12/2024 20:10:41 06/12/20 24 06/12/2024 MICRO SCOPI C FINDI NGS crystals Negati ve hpf negati ve Not Available [address] [place], [address] 06/12/2024 20:10:41 06/12/20 24 06/12/2024 MICRO SCOPI C FINDI NGS mucus Negati ve negati ve Not Available [address] [place], [address] 06/12/2024 20:10:41 06/12/20 24 06/12/2024 MICRO SCOPI C FINDI NGS casts Negati ve lpf negati ve Not Available [address] [place], [address] 06/12/2024 20:10:41 06/12/20 24 06/12/2024 MICRO SCOPI C FINDI NGS C S indicated? No Not Available [address] [place], [address] 06/12/2024 20:10:41 06/12/20 24 06/12/2024 URINA LYSIS color Yellow yellow Not Available Marilin oliver [address] [place], [address] 06/12/2024 20:10:40 06/12/20 24 06/12/2024 URINA LYSIS clarity Clear clear Not Available Marilin oliver [address] [place], [address] 06/12/2024 20:10:40 06/12/20 24 06/12/2024 URINA LYSIS specific gravity 1.025 1.005- 1.025 normal Not Available [address] [place], [address] 06/12/2024 20:10:40 06/12/20 24 06/12/2024 URINA LYSIS pH 5.5 5-8 normal Not Available Marilin oliver [address] [place], [address] 06/12/2024 20:10:40 06/12/20 24 06/12/2024 URINA LYSIS leukocyte esterase Negati ve negati ve Not Available [address] [place], [address] 06/12/2024 20:10:40 06/12/20 24 06/12/2024 URINA LYSIS nitrite Negati ve negati ve Not Available [address] [place], [address] 06/12/2024 20:10:40 06/12/20 24 06/12/2024 URINA LYSIS protein 30 mg/dL neg-tr erendira abnormal Not Available [address] [place], [address] 06/12/2024 20:10:40 06/12/20 24 06/12/2024 URINA LYSIS glucose Negati ve mg/dL negati ve Not Available [address] [place], [address] 06/12/2024 20:10:40 06/12/20 24 06/12/2024 URINA LYSIS ketones Negati ve mg/dL negati ve Not Available [address] [place], [address] 06/12/2024 20:10:40 06/12/20 24 06/12/2024 URINA LYSIS urobilinogen 0.2 mg/dL up to 0.2 Not Available [address] [place], [address] 06/12/2024 20:10:40 06/12/20 24 06/12/2024 URINA LYSIS bilirubin Negati ve negati ve Not Available [address] [place], [address] 06/12/2024 20:10:40 06/12/20 24 06/12/2024 URINA LYSIS blood Negati ve negati ve Not Available [address] [place], [address] 06/12/2024 20:10:40 06/12/20 24 06/12/2024 URINA LYSIS color Yellow yellow Not Available Marilin oliver [address] [place], [address] 06/12/2024 20:04:40 06/12/20 24 06/12/2024 URINA LYSIS clarity Clear clear Not Available Marilin oliver [address] [place], [address] 06/12/2024 20:04:40 06/12/20 24 06/12/2024 URINA LYSIS specific gravity 1.025 1.005- 1.025 normal Not Available [address] [place], [address] 06/12/2024 20:04:40 06/12/20 24 06/12/2024 URINA LYSIS pH 5.5 5-8 normal Not Available Marilin oliver [address] [place], [id number] 06/12/2024 20:04:40 06/12/20 24 06/12/2024 URINA LYSIS leukocyte esterase Negati ve negati ve Not Available [address] [place], [address] 06/12/2024 20:04:40 06/12/20 24 06/12/2024 URINA LYSIS nitrite Negati ve negati ve Not Available [address] [place], [address] 06/12/2024 20:04:40 06/12/20 24 06/12/2024 URINA LYSIS protein 30 mg/dL neg-tr erendira abnormal Not Available [address] [place], [address] 06/12/2024 20:04:40 06/12/20 24 06/12/2024 URINA LYSIS glucose Negati ve mg/dL negati ve Not Available [address] [place], [address] 06/12/2024 20:04:40 06/12/20 24 06/12/2024 URINA LYSIS ketones Negati ve mg/dL negati ve Not Available [address] [place], [address] 06/12/2024 20:04:40 06/12/20 24 06/12/2024 URINA LYSIS urobilinogen 0.2 mg/dL up to 0.2 Not Available [address] [place], [address] 06/12/2024 20:04:40 06/12/20 24 06/12/2024 URINA LYSIS bilirubin Negati ve negati ve Not Available [address] [place], [address] 06/12/2024 20:04:40 06/12/20 24 06/12/2024 URINA LYSIS blood Negati ve negati ve Not Available [address] [place], [address] 06/12/2024 20:04:40 06/12/20 24 06/12/2024 ACETA MINOP HEN acetaminophe n < 2 ug/mL 10-30 Not Available Yamil marrero [address] [place], [address] 06/12/2024 18:20:32 06/12/20 24 06/12/2024 LIPAS E lipase 71 U/L 16-77 normal Not Available Marilin oliver [address] [place], [address] 06/12/2024 18:55:40 06/12/20 24 06/12/2024 TSH (W/RE F FT4) TSH (w/ref FT4) 1.49 uIU/m L 0.36-3 .74 normal Not Available [address] [place], [address] 06/12/2024 18:55:40 06/12/2006/12/2024 MAGNE SIUM magnesium 2.0 mg/dL 1.8-2. 4 normal Not Available [address] [place], [address] 06/12/2024 18:55:39 06/12/2006/12/2024 ETHYL ALCOH OL ethyl alcohol < 3.0 mg/dL <10 ETOH Refer ence Range = <10 mg/dL Legal Limit of Intox icati on is 80 mg/dL This test is inten ded only for Medic al purpo ses. Divid e resul t by 1000 to conve rt to %(w/v ) Not Available [address] [place], [address] 06/12/2024 18:55:39 06/12/2006/12/2024 CREAT INE KINAS E creatine kinase 81 U/L 26-192 normal Not Available Yamil marrero [address] [place], [address] 06/12/2024 18:55:38 06/12/20 24 06/12/2024 COMPR EHENS JR METAB OLIC PANEL calcium 9.5 mg/dL 8.5-10 .1 normal Not Available [address] [place], [address] 06/12/2024 18:55:38 06/12/20 24 06/12/2024 COMPR EHENS JR METAB OLIC PANEL glucose 162 mg/dL 74-106 high Not Available Marilin oliver [address] [place], [address] 06/12/2024 18:55:38 06/12/20 24 06/12/2024 COMPR EHENS JR METAB OLIC PANEL BUN 37 mg/dL 7-18 high Not Available Marilin oliver [address] [place], [address] 06/12/2024 18:55:38 06/12/20 24 06/12/2024 COMPR EHENS JR METAB OLIC PANEL creatinine 1.7 mg/dL 0.55-1 .02 high Not Available [address] [place], [address] 06/12/2024 18:55:38 06/12/20 24 06/12/2024 COMPR EHENS [...] young er-ag ed adult s. Not Available [address] [place], [address] 06/12/2024 18:55:38 06/12/20 24 06/12/2024 COMPR EHENS JR METAB OLIC PANEL total protein 7.4 g/dL 6.4-8. 2 normal Not Available [address] [place], [address] 06/12/2024 18:55:38 06/12/20 24 06/12/2024 COMPR EHENS JR METAB OLIC PANEL albumin 3.9 g/dL 3.4-5. 0 normal Not Available [address] [place], [address] 06/12/2024 18:55:38 06/12/20 24 06/12/2024 COMPR EHENS JR METAB OLIC PANEL bilirubin, total 0.52 mg/dL 0.2-1. 0 normal Not Available [address] [place], [address] 06/12/2024 18:55:38 06/12/20 24 06/12/2024 COMPR EHENS JR METAB OLIC PANEL alk phos 101 U/L 46-116 normal Not Available [address] [place], [address] 06/12/2024 18:55:38 06/12/20 24 06/12/2024 COMPR EHENS JR METAB OLIC PANEL sodium 144 mmol/ L 136-14 5 normal Not Available [address] [place], [address] 06/12/2024 18:55:38 06/12/20 24 06/12/2024 COMPR EHENS JR METAB OLIC PANEL potassium 3.6 mmol/ L 3.5-5. 1 normal Not Available [address] [place], [address] 06/12/2024 18:55:38 06/12/20 24 06/12/2024 COMPR EHENS JR METAB OLIC PANEL chloride 108 mmol/ L 98-107 high Not Available [address] [place], [address] 06/12/2024 18:55:38 06/12/20 24 06/12/2024 COMPR EHENS JR METAB OLIC PANEL CO2 23.8 mmol/ L 21.0-3 2.0 normal Not Available [address] [place], [address] 06/12/2024 18:55:38 06/12/20 24 06/12/2024 COMPR EHENS JR METAB OLIC PANEL anion gap 12.2 mmol/ L 3-11 high Not Available [address] [place], [address] 06/12/2024 18:55:38 06/12/20 24 06/12/2024 COMPR EHENS JR METAB OLIC PANEL AST 15 U/L 15-37 normal Not Available Marilin oliver [address] [place], [address] 06/12/2024 18:55:38 06/12/20 24 06/12/2024 COMPR EHENS JR METAB OLIC PANEL ALT 15 U/L 14-59 normal Not Available Marilin oliver [address] [place], [address] 06/12/2024 18:55:38 06/12/20 24 06/12/2024 COVID /FLU/ RSV PCR source Nasoph arynx Not Available [facility] [address] [facility] [place], [address] 06/12/2024 18:35:33 06/12/2006/12/2024 COVID /FLU/ RSV PCR covid-19 PCR Negati [...] oanh nAbhishek Testi ng perfo rmed at [facility] (CLIA #[id number]) on the Cephe id GeneX pert. Not Available [address] [place], [address] 06/12/2024 18:35:33 06/12/20 24 06/12/2024 COVID /FLU/ RSV PCR influenza A PCR Negati ve negati ve Not Available [address] [place], [address] 06/12/2024 18:35:33 06/12/20 24 06/12/2024 COVID /FLU/ RSV PCR influenza B PCR Negati ve negati ve Not Available [address] [place], [address] 06/12/2024 18:35:33 06/12/20 24 06/12/2024 COVID /FLU/ RSV PCR RSV PCR Negati ve negati ve Not Available [address] [place], [address] 06/12/2024 18:35:33 06/12/20 24 06/12/2024 PTT ACTIV ATED PTT activated 22.1 sec 23.6-3 2.8 low Hepar in Thera peuti c Range for PTT = 52-84 secon ds New Hepar in Thera peuti c Range 10/28 Not Available [address] [place], [address] 06/12/2024 18:13:30 06/12/20 24 06/12/2024 PROTH ROMBI N TIME prothrombin time 9.9 sec 9.1-11 .1 normal Not Available [address] [place], [address] 06/12/2024 18:13:30 06/12/20 24 06/12/2024 PROTH ROMBI N TIME INR 1.0 0.9-1. 1 normal Recom luis a d INR thera peuti c range s for orall y admin ister ed drugs are as follo ws: -Dustin dard Inten sity 2.0 to 3.0 -High er Inten sity 3.0 to 4.5 Not Available [address] [place], [address] 06/12/2024 18:13:30 06/12/20 24 06/12/2024 VALENCIA IA ammonia < 10 umol/ L 11-32 low Not Available [address] [place], [address] 06/12/2024 18:10:29 06/12/20 24 06/12/2024 COMPL ETE BLOOD COUNT W/DIF F WBC 7.41 10_3/ uL 4.4-10 .8 normal Not Available [address] [place], [address] 06/12/2024 18:08:30 06/12/20 24 06/12/2024 COMPL ETE BLOOD COUNT W/DIF F RBC 3.82 10_6/ uL 3.93-5 .22 low Not Available [address] [place], [address] 06/12/2024 18:08:30 06/12/20 24 06/12/2024 COMPL ETE BLOOD COUNT W/DIF F HGB 11.9 g/dL 11.2-1 5.7 normal Not Available [address] [place], [address] 06/12/2024 18:08:30 06/12/20 24 06/12/2024 COMPL ETE BLOOD COUNT W/DIF F HCT 34.8 % 36.0-4 6.0 low Not Available [address] [place], [address] 06/12/2024 18:08:30 06/12/20 24 06/12/2024 COMPL ETE BLOOD COUNT W/DIF F MCV 91 fL 80-95 normal Not Available Marilin [address] [place], [address] 06/12/2024 18:08:30 06/12/20 24 06/12/2024 COMPL ETE BLOOD COUNT W/DIF F MCH 31.2 pg 27.0-3 3.0 normal Not Available [address] [place], [address] 06/12/2024 18:08:30 06/12/20 24 06/12/2024 COMPL ETE BLOOD COUNT W/DIF F MCHC 34.2 % 32.0-3 6.0 normal Not Available [address] [place], [address] 06/12/2024 18:08:30 06/12/20 24 06/12/2024 COMPL ETE BLOOD COUNT W/DIF F RDW 12.2 % 11.7-1 4.6 normal Not Available [address] [place], [address] 06/12/2024 18:08:30 06/12/20 24 06/12/2024 COMPL ETE BLOOD COUNT W/DIF F platelet count 211 10_3/ uL 130-40 0 normal Not Available [address] [place], [address] 06/12/2024 18:08:30 06/12/20 24 06/12/2024 COMPL ETE BLOOD COUNT W/DIF F MPV 10.8 fL 8.0-11 .0 normal Not Available [address] [place], [address] 06/12/2024 18:08:30 06/12/20 24 06/12/2024 COMPL ETE BLOOD COUNT W/DIF F neutrophils % 58.3 % Not Available [address] [place], [address] 06/12/2024 18:08:30 06/12/20 24 06/12/2024 COMPL ETE BLOOD COUNT W/DIF F lymphocytes % 33.3 % Not Available [address] [place], [address] 06/12/2024 18:08:30 06/12/20 24 06/12/2024 COMPL ETE BLOOD COUNT W/DIF F monocytes % 5.0 % Not Available [address] [place], [address] 06/12/2024 18:08:30 06/12/20 24 06/12/2024 COMPL ETE BLOOD COUNT W/DIF F eosinophils % 2.3 % Not Available [address] [place], [address] 06/12/2024 18:08:30 06/12/20 24 06/12/2024 COMPL ETE BLOOD COUNT W/DIF F basophils % 0.8 % Not Available [address] [place], [address] 06/12/2024 18:08:30 06/12/20 24 06/12/2024 COMPL ETE BLOOD COUNT W/DIF F immature grans % 0.3 % Not Available Yamil marrero [address] [place], [address] 06/12/2024 18:08:30 06/12/20 24 06/12/2024 COMPL ETE BLOOD COUNT W/DIF F nucleated RBC 0.0 % 0.0-0. 3 normal Not Available [address] [place], [address] 06/12/2024 18:08:30 06/12/20 24 06/12/2024 COMPL ETE BLOOD COUNT W/DIF F absolute neutrophil count 4.32 10_3/ uL 1.2-6. 7 normal Not Available [address] [place], [address] 06/12/2024 18:08:30 06/12/20 24 06/12/2024 COMPL ETE BLOOD COUNT W/DIF F absolute lymphocyte count 2.47 10_3/ uL 1.2-3. 4 normal Not Available [address] [place], [address] 06/12/2024 18:08:30 06/12/20 24 06/12/2024 COMPL ETE BLOOD COUNT W/DIF F absolute monocyte count 0.37 10_3/ uL 0.1-0. 8 normal Not Available [address] [place], [address] 06/12/2024 18:08:30 06/12/20 24 06/12/2024 COMPL ETE BLOOD COUNT W/DIF F absolute eosinophil count 0.17 10_3/ uL 0.0-0. 7 normal Not Available [address] [place], [address] 06/12/2024 18:08:30 06/12/20 24 06/12/2024 COMPL ETE BLOOD COUNT W/DIF F absolute basophil count 0.06 10_3/ uL 0.0-0. 2 normal Not Available [address] [place], [address] 06/12/2024 18:08:30 06/12/20 24 06/12/2024 VENOU S BLOOD GAS pH (venous) 7.30 7.31-7 .41 low Not Available [address] [place], [address] 06/12/2024 17:56:28 06/12/20 24 06/12/2024 VENOU S BLOOD GAS pCO2 (venous) 45 mmHg 41-51 normal Not Available [place] [address] [place], [address] 06/12/2024 17:56:28 06/12/20 24 06/12/2024 VENOU S BLOOD GAS pO2 (venous) 31 mmHg Not Available [address] [place], [address] 06/12/2024 17:56:28 06/12/20 24 06/12/2024 VENOU S BLOOD GAS TCO2 (venous) 21 mmol/ L 24-29 low Not Available [address] [place], [address] 06/12/2024 17:56:28 06/12/20 24 06/12/2024 VENOU S BLOOD GAS HCO3 (venous) 22 mmol/ L 23-28 low Not Available [address] [place], [address] 06/12/2024 17:56:28 06/12/20 24 06/12/2024 VENOU S BLOOD GAS BE (venous) -4 mmol/ L -2-3 low Not Available [address] [place], [address] 06/12/2024 17:56:28 06/12/20 24 06/12/2024 VENOU S BLOOD GAS O2 sat (venous) 57 % Not Available [place] [facility] [address] [place], [address] 06/12/2024 17:56:28 06/12/20 24 06/12/2024 TSH (W/RE F FT4) TSH (w/ref FT4) 1.49 uIU/m L 0.36-3 .74 normal Not Available [address] [place], [address] 06/12/2024 18:45:41 06/12/20 24 06/12/2024 MAGNE SIUM magnesium 2.0 mg/dL 1.8-2. 4 normal Not Available [address] [place], [address] 06/12/2024 18:45:41 06/12/20 24 06/12/2024 ETHYL ALCOH OL ethyl alcohol < 3.0 mg/dL <10 ETOH Refer ence Range = <10 mg/dL Legal Limit of Intox icati on is 80 mg/dL This test is inten ded only for Medic al purpo ses. Divid e resul t by 1000 to conve rt to %(w/v ) Not Available [address] [place], [address] 06/12/2024 18:45:40 06/12/2006/12/2024 CREAT INE KINAS E creatine kinase 81 U/L 26-192 normal Not Available Yamil marrero [address] [place], [address] 06/12/2024 18:45:40 06/12/20 24 06/12/2024 COMPR EHENS JR METAB OLIC PANEL calcium 9.5 mg/dL 8.5-10 .1 normal Not Available [address] [place], [address] 06/12/2024 18:45:39 06/12/20 24 06/12/2024 COMPR EHENS JR METAB OLIC PANEL glucose 162 mg/dL 74-106 high Not Available Marilin oliver [address] [place], [address] 06/12/2024 18:45:39 06/12/20 24 06/12/2024 COMPR EHENS JR METAB OLIC PANEL BUN 37 mg/dL 7-18 high Not Available Marilin oliver [address] [place], [address] 06/12/2024 18:45:39 06/12/20 24 06/12/2024 COMPR EHENS JR METAB OLIC PANEL creatinine 1.7 mg/dL 0.55-1 .02 high Not Available [address] [place], [address] 06/12/2024 18:45:39 06/12/20 24 06/12/2024 COMPR EHENS [...] young er-ag ed adult s. Not Available [address] [place], [address] 06/12/2024 18:45:39 06/12/20 24 06/12/2024 COMPR EHENS JR METAB OLIC PANEL total protein 7.4 g/dL 6.4-8. 2 normal Not Available [address] [place], [address] 06/12/2024 18:45:39 06/12/20 24 06/12/2024 COMPR EHENS JR METAB OLIC PANEL albumin 3.9 g/dL 3.4-5. 0 normal Not Available [address] [place], [address] 06/12/2024 18:45:39 06/12/20 24 06/12/2024 COMPR EHENS JR METAB OLIC PANEL bilirubin, total 0.52 mg/dL 0.2-1. 0 normal Not Available [address] [place], [address] 06/12/2024 18:45:39 06/12/20 24 06/12/2024 COMPR EHENS JR METAB OLIC PANEL alk phos 101 U/L 46-116 normal Not Available [address] [place], [address] 06/12/2024 18:45:39 06/12/20 24 06/12/2024 COMPR EHENS JR METAB OLIC PANEL sodium 144 mmol/ L 136-14 5 normal Not Available [address] [place], [address] 06/12/2024 18:45:39 06/12/20 24 06/12/2024 COMPR EHENS JR METAB OLIC PANEL potassium 3.6 mmol/ L 3.5-5. 1 normal Not Available [address] [place], [address] 06/12/2024 18:45:39 06/12/20 24 06/12/2024 COMPR EHENS JR METAB OLIC PANEL chloride 108 mmol/ L 98-107 high Not Available [address] [place], [address] 06/12/2024 18:45:39 06/12/20 24 06/12/2024 COMPR EHENS JR METAB OLIC PANEL CO2 23.8 mmol/ L 21.0-3 2.0 normal Not Available [address] [place], [address] 06/12/2024 18:45:39 06/12/20 24 06/12/2024 COMPR EHENS JR METAB OLIC PANEL anion gap 12.2 mmol/ L 3-11 high Not Available [address] [place], [address] 06/12/2024 18:45:39 06/12/20 24 06/12/2024 COMPR EHENS JR METAB OLIC PANEL AST 15 U/L 15-37 normal Not Available Marilin [address] [place], [address] 06/12/2024 18:45:39 06/12/20 24 06/12/2024 COMPR EHENS JR METAB OLIC PANEL ALT 15 U/L 14-59 normal Not Available Marilin oliver [address] [place], [address] 06/12/2024 18:45:39 06/12/20 24 06/12/2024 TSH (W/RE F FT4) TSH (w/ref FT4) 1.49 uIU/m L 0.36-3 .74 normal Not Available [address] [place], [address] 06/12/2024 18:45:36 06/12/20 24 06/12/2024 MAGNE SIUM magnesium 2.0 mg/dL 1.8-2. 4 normal Not Available [address] [place], [address] 06/12/2024 18:45:36 06/12/20 24 06/12/2024 ETHYL ALCOH OL ethyl alcohol < 3.0 mg/dL <10 ETOH Refer ence Range = <10 mg/dL Legal Limit of Intox icati on is 80 mg/dL This test is inten ded only for Medic al purpo ses. Divid e resul t by 1000 to conve rt to %(w/v ) Not Available [address] [place], [address] 06/12/2024 18:45:35 06/12/20 24 06/12/2024 CREAT INE KINAS E creatine kinase 81 U/L 26-192 normal Not Available [facility] [address] [place], [address] 06/12/2024 18:45:35 06/12/20 24 06/12/2024 COMPR EHENS JR METAB OLIC PANEL calcium 9.5 mg/dL 8.5-10 .1 normal Not Available [address] [place], [address] 06/12/2024 18:45:34 06/12/20 24 06/12/2024 COMPR EHENS JR METAB OLIC PANEL glucose 162 mg/dL 74-106 high Not Available Marilin oliver [address] [place], [address] 06/12/2024 18:45:34 06/12/20 24 06/12/2024 COMPR EHENS JR METAB OLIC PANEL BUN 37 mg/dL 7-18 high Not Available Marilin oliver [address] [place], [address] 06/12/2024 18:45:34 06/12/20 24 06/12/2024 COMPR EHENS JR METAB OLIC PANEL creatinine 1.7 mg/dL 0.55-1 .02 high Not Available [address] [place], [address] 06/12/2024 18:45:34 06/12/20 24 06/12/2024 COMPR EHENS [...] young er-ag ed adult s. Not Available [address] [place], [address] 06/12/2024 18:45:34 06/12/20 24 06/12/2024 COMPR EHENS JR METAB OLIC PANEL total protein 7.4 g/dL 6.4-8. 2 normal Not Available [address] [place], [address] 06/12/2024 18:45:34 06/12/20 24 06/12/2024 COMPR EHENS JR METAB OLIC PANEL albumin 3.9 g/dL 3.4-5. 0 normal Not Available [address] [place], [address] 06/12/2024 18:45:34 06/12/20 24 06/12/2024 COMPR EHENS JR METAB OLIC PANEL bilirubin, total 0.52 mg/dL 0.2-1. 0 normal Not Available [address] [place], [address] 06/12/2024 18:45:34 06/12/20 24 06/12/2024 COMPR EHENS JR METAB OLIC PANEL alk phos 101 U/L 46-116 normal Not Available [address] [place], [address] 06/12/2024 18:45:34 06/12/20 24 06/12/2024 COMPR EHENS JR METAB OLIC PANEL sodium 144 mmol/ L 136-14 5 normal Not Available [address] [place], [address] 06/12/2024 18:45:34 06/12/20 24 06/12/2024 COMPR EHENS JR METAB OLIC PANEL potassium 3.6 mmol/ L 3.5-5. 1 normal Not Available [address] [place], [address] 06/12/2024 18:45:34 06/12/20 24 06/12/2024 COMPR EHENS JR METAB OLIC PANEL chloride 108 mmol/ L 98-107 high Not Available [address] [place], [address] 06/12/2024 18:45:34 06/12/20 24 06/12/2024 COMPR EHENS JR METAB OLIC PANEL CO2 23.8 mmol/ L 21.0-3 2.0 normal Not Available [address] [place], [address] 06/12/2024 18:45:34 06/12/20 24 06/12/2024 COMPR EHENS JR METAB OLIC PANEL anion gap 12.2 mmol/ L 3-11 high Not Available [address] [place], [address] 06/12/2024 18:45:34 06/12/20 24 06/12/2024 COMPR EHENS JR METAB OLIC PANEL AST 15 U/L 15-37 normal Not Available Marilin [address] [place], [address] 06/12/2024 18:45:34 06/12/20 24 06/12/2024 COMPR EHENS JR METAB OLIC PANEL ALT 15 U/L 14-59 normal Not Available Marilin [address] [place], [address] 06/12/2024 18:45:34 06/12/20 24 06/12/2024 CREAT INE KINAS E creatine kinase 81 U/L 26-192 normal Not Available [facility] [address] [place], [address] 06/12/2024 18:21:32 06/12/20 24 06/12/2024 COMPR EHENS JR METAB OLIC PANEL total protein 7.4 g/dL 6.4-8. 2 normal Not Available [address] [place], [address] 06/12/2024 18:21:31 06/12/20 24 06/12/2024 COMPR EHENS JR METAB OLIC PANEL bilirubin, total 0.52 mg/dL 0.2-1. 0 normal Not Available [address] [place], [address] 06/12/2024 18:21:31 06/12/20 24 06/12/2024 COMPR EHENS JR METAB OLIC PANEL sodium 144 mmol/ L 136-14 5 normal Not Available [address] [place], [address] 06/12/2024 18:21:31 06/12/20 24 06/12/2024 COMPR EHENS JR METAB OLIC PANEL potassium 3.6 mmol/ L 3.5-5. 1 normal Not Available [address] [place], [address] 06/12/2024 18:21:31 06/12/20 24 06/12/2024 COMPR EHENS JR METAB OLIC PANEL chloride 108 mmol/ L 98-107 high Not Available [address] [place], [address] 06/12/2024 18:21:31 06/12/20 24 06/12/2024 COMPR EHENS JR METAB OLIC PANEL CO2 23.8 mmol/ L 21.0-3 2.0 normal Not Available [address] [place], [address] 06/12/2024 18:21:31 06/12/20 24 06/12/2024 COMPR EHENS JR METAB OLIC PANEL anion gap 12.2 mmol/ L 3-11 high Not Available [address] [place], [address] 06/12/2024 18:21:31 06/13/20 24 06/13/2024 MAGNE SIUM magnesium 1.8 mg/dL 1.8-2. 4 normal Not Available [address] [place], [address] 06/13/2024 07:03:39 06/13/20 24 06/13/2024 COMPR EHENS JR METAB OLIC PANEL calcium 9.0 mg/dL 8.5-10 .1 normal Not Available [address] [place], [address] 06/13/2024 07:03:38 06/13/20 24 06/13/2024 COMPR EHENS JR METAB OLIC PANEL glucose 104 mg/dL 74-106 normal Not Available Marilin oliver [address] [place], [address] 06/13/2024 07:03:38 06/13/20 24 06/13/2024 COMPR EHENS JR METAB OLIC PANEL BUN 34 mg/dL 7-18 high Not Available Marilin [address] [place], [address] 06/13/2024 07:03:38 06/13/20 24 06/13/2024 COMPR EHENS JR METAB OLIC PANEL creatinine 1.6 mg/dL 0.55-1 .02 high Not Available [address] [place], [address] 06/13/2024 07:03:38 06/13/20 24 06/13/2024 COMPR EHENS [...] young er-ag ed adult s. Not Available [address] [place], [address] 06/13/2024 07:03:38 06/13/20 24 06/13/2024 COMPR EHENS JR METAB OLIC PANEL total protein 6.7 g/dL 6.4-8. 2 normal Not Available [address] [place], [address] 06/13/2024 07:03:38 06/13/20 24 06/13/2024 COMPR EHENS JR METAB OLIC PANEL albumin 3.5 g/dL 3.4-5. 0 normal Not Available [address] [place], [address] 06/13/2024 07:03:38 06/13/20 24 06/13/2024 COMPR EHENS JR METAB OLIC PANEL bilirubin, total 0.40 mg/dL 0.2-1. 0 normal Not Available [address] [place], [address] 06/13/2024 07:03:38 06/13/20 24 06/13/2024 COMPR EHENS JR METAB OLIC PANEL alk phos 91 U/L 46-116 normal Not Available [address] [place], [address] 06/13/2024 07:03:38 06/13/20 24 06/13/2024 COMPR EHENS JR METAB OLIC PANEL sodium 138 mmol/ L 136-14 5 normal Not Available [address] [place], [address] 06/13/2024 07:03:38 06/13/20 24 06/13/2024 COMPR EHENS JR METAB OLIC PANEL potassium 3.4 mmol/ L 3.5-5. 1 low Not Available [address] [place], [address] 06/13/2024 07:03:38 06/13/20 24 06/13/2024 COMPR EHENS JR METAB OLIC PANEL chloride 106 mmol/ L 98-107 normal Not Available [address] [place], [address] 06/13/2024 07:03:38 06/13/20 24 06/13/2024 COMPR EHENS JR METAB OLIC PANEL CO2 22.6 mmol/ L 21.0-3 2.0 normal Not Available [address] [place], [address] 06/13/2024 07:03:38 06/13/20 24 06/13/2024 COMPR EHENS JR METAB OLIC PANEL anion gap 9.4 mmol/ L 3-11 normal Not Available [address] [place], [address] 06/13/2024 07:03:38 06/13/20 24 06/13/2024 COMPR EHENS JR METAB OLIC PANEL AST 14 U/L 15-37 low Not Available Marilin oliver [address] [place], [address] 06/13/2024 07:03:38 06/13/20 24 06/13/2024 COMPR EHENS JR METAB OLIC PANEL ALT 12 U/L 14-59 low Not Available Marilin oliver [address] [place], [address] 06/13/2024 07:03:38 06/13/20 24 06/13/2024 COMPL ETE BLOOD COUNT NO DIFF WBC 8.48 10_3/ uL 4.4-10 .8 normal Not Available [address] [place], [address] 06/13/2024 06:47:37 06/13/20 24 06/13/2024 COMPL ETE BLOOD COUNT NO DIFF RBC 3.48 10_6/ uL 3.93-5 .22 low Not Available [address] [place], [address] 06/13/2024 06:47:37 06/13/20 24 06/13/2024 COMPL ETE BLOOD COUNT NO DIFF HGB 10.8 g/dL 11.2-1 5.7 low Not Available [address] [place], [address] 06/13/2024 06:47:37 06/13/20 24 06/13/2024 COMPL ETE BLOOD COUNT NO DIFF HCT 31.5 % 36.0-4 6.0 low Not Available [address] [place], [address] 06/13/2024 06:47:37 06/13/20 24 06/13/2024 COMPL ETE BLOOD COUNT NO DIFF MCV 91 fL 80-95 normal Not Available Marilin oliver [address] [place], [address] 06/13/2024 06:47:37 06/13/20 24 06/13/2024 COMPL ETE BLOOD COUNT NO DIFF MCH 31.0 pg 27.0-3 3.0 normal Not Available [address] [place], [address] 06/13/2024 06:47:37 06/13/20 24 06/13/2024 COMPL ETE BLOOD COUNT NO DIFF MCHC 34.3 % 32.0-3 6.0 normal Not Available [address] [place], [address] 06/13/2024 06:47:37 06/13/20 24 06/13/2024 COMPL ETE BLOOD COUNT NO DIFF RDW 12.1 % 11.7-1 4.6 normal Not Available [address] [place], [address] 06/13/2024 06:47:37 06/13/20 24 06/13/2024 COMPL ETE BLOOD COUNT NO DIFF platelet count 200 10_3/ uL 130-40 0 normal Not Available [address] [place], [address] 06/13/2024 06:47:37 06/13/20 24 06/13/2024 COMPL ETE BLOOD COUNT NO DIFF MPV 10.5 fL 8.0-11 .0 normal Not Available [address] [place], [address] 06/13/2024 06:47:37 06/16/20 24 06/16/2024 COMPL ETE BLOOD COUNT W/DIF F WBC 10.78 10_3/ uL 4.4-10 .8 normal Not Available [address] [place], [address] 06/16/2024 15:02:01 06/16/20 24 06/16/2024 COMPL ETE BLOOD COUNT W/DIF F RBC 3.86 10_6/ uL 3.93-5 .22 low Not Available [address] [place], [address] 06/16/2024 15:02:01 06/16/20 24 06/16/2024 COMPL ETE BLOOD COUNT W/DIF F HGB 11.8 g/dL 11.2-1 5.7 normal Not Available [address] [place], [address] 06/16/2024 15:02:01 06/16/2006/16/2024 COMPL ETE BLOOD COUNT W/DIF F HCT 35.1 % 36.0-4 6.0 low Not Available [address] [place], [address] 06/16/2024 15:02:01 06/16/20 24 06/16/2024 COMPL ETE BLOOD COUNT W/DIF F MCV 91 fL 80-95 normal Not Available [address] [place], [address] 06/16/2024 15:02:01 06/16/20 24 06/16/2024 COMPL ETE BLOOD COUNT W/DIF F MCH 30.6 pg 27.0-3 3.0 normal Not Available [address] [place], [address] 06/16/2024 15:02:01 06/16/20 24 06/16/2024 COMPL ETE BLOOD COUNT W/DIF F MCHC 33.6 % 32.0-3 6.0 normal Not Available [address] [place], [address] 06/16/2024 15:02:01 06/16/2006/16/2024 COMPL ETE BLOOD COUNT W/DIF F RDW 12.5 % 11.7-1 4.6 normal Not Available [address] [place], [address] 06/16/2024 15:02:01 06/16/20 24 06/16/2024 COMPL ETE BLOOD COUNT W/DIF F platelet count 256 10_3/ uL 130-40 0 normal Not Available [address] [place], [address] 06/16/2024 15:02:01 06/16/2006/16/2024 COMPL ETE BLOOD COUNT W/DIF F MPV 10.2 fL 8.0-11 .0 normal Not Available [address] [place], [address] 06/16/2024 15:02:01 06/16/20 24 06/16/2024 COMPL ETE BLOOD COUNT W/DIF F neutrophils % 61.1 % Not Available [address] [place], [address] 06/16/2024 15:02:01 06/16/20 24 06/16/2024 COMPL ETE BLOOD COUNT W/DIF F lymphocytes % 29.4 % Not Available [address] [place], [address] 06/16/2024 15:02:01 06/16/20 24 06/16/2024 COMPL ETE BLOOD COUNT W/DIF F monocytes % 6.9 % Not Available [address] [place], [address] 06/16/2024 15:02:01 06/16/20 24 06/16/2024 COMPL ETE BLOOD COUNT W/DIF F eosinophils % 1.5 % Not Available [address] [place], [address] 06/16/2024 15:02:01 06/16/20 24 06/16/2024 COMPL ETE BLOOD COUNT W/DIF F basophils % 0.6 % Not Available [address] [place], [address] 06/16/2024 15:02:01 06/16/20 24 06/16/2024 COMPL ETE BLOOD COUNT W/DIF F immature grans % 0.5 % Not Available [address] [place], [address] 06/16/2024 15:02:01 06/16/20 24 06/16/2024 COMPL ETE BLOOD COUNT W/DIF F nucleated RBC 0.0 % 0.0-0. 3 normal Not Available [address] [place], [address] 06/16/2024 15:02:01 06/16/20 24 06/16/2024 COMPL ETE BLOOD COUNT W/DIF F absolute neutrophil count 6.59 10_3/ uL 1.2-6. 7 normal Not Available [address] [place], [address] 06/16/2024 15:02:01 06/16/20 24 06/16/2024 COMPL ETE BLOOD COUNT W/DIF F absolute lymphocyte count 3.17 10_3/ uL 1.2-3. 4 normal Not Available [address] [place], [address] 06/16/2024 15:02:01 06/16/20 24 06/16/2024 COMPL ETE BLOOD COUNT W/DIF F absolute monocyte count 0.74 10_3/ uL 0.1-0. 8 normal Not Available [address] [place], [address] 06/16/2024 15:02:01 06/16/20 24 06/16/2024 COMPL ETE BLOOD COUNT W/DIF F absolute eosinophil count 0.16 10_3/ uL 0.0-0. 7 normal Not Available [address] [place], [address] 06/16/2024 15:02:01 06/16/20 24 06/16/2024 COMPL ETE BLOOD COUNT W/DIF F absolute basophil count 0.07 10_3/ uL 0.0-0. 2 normal Not Available [address] [place], [address] 06/16/2024 15:02:01 06/16/20 24 06/16/2024 BASIC METAB OLIC PANEL calcium 9.1 mg/dL 8.5-10 .1 normal Not Available [address] [place], [address] 06/16/2024 14:45:56 06/16/2006/16/2024 BASIC METAB OLIC PANEL glucose 126 mg/dL 74-106 high Not Available Marilin oliver [address] [place], [address] 06/16/2024 14:45:56 06/16/20 24 06/16/2024 BASIC METAB OLIC PANEL BUN 26 mg/dL 7-18 high Not Available Marilin oliver [address] [place], [address] 06/16/2024 14:45:56 06/16/20 24 06/16/2024 BASIC METAB OLIC PANEL creatinine 1.7 mg/dL 0.55-1 .02 high Not Available [address] [place], [address] 06/16/2024 14:45:56 06/16/2006/16/2024 BASIC METAB OLIC PANEL [...] young er-ag ed adult s. Not Available [address] [place], [address] 06/16/2024 14:45:56 06/16/2006/16/2024 BASIC METAB OLIC PANEL sodium 139 mmol/ L 136-14 5 normal Not Available [address] [place], [address] 06/16/2024 14:45:56 06/16/2006/16/2024 BASIC METAB OLIC PANEL potassium 3.4 mmol/ L 3.5-5. 1 low Not Available [address] [place], [address] 06/16/2024 14:45:56 06/16/20 24 06/16/2024 BASIC METAB OLIC PANEL chloride 104 mmol/ L 98-107 normal Not Available [address] [place], [address] 06/16/2024 14:45:56 06/16/2006/16/2024 BASIC METAB OLIC PANEL CO2 25.3 mmol/ L 21.0-3 2.0 normal Not Available [address] [place], [address] 06/16/2024 14:45:56 06/16/2006/16/2024 BASIC METAB OLIC PANEL anion gap 9.7 mmol/ L 3-11 normal Not Available [address] [place], [address] 06/16/2024 14:45:56 06/17/2006/17/2024 BASIC METAB OLIC PANEL calcium 9.0 mg/dL 8.5-10 .1 normal Not Available [address] [place], [address] 06/17/2024 11:32:16 06/17/2006/17/2024 BASIC METAB OLIC PANEL glucose 116 mg/dL 74-106 high Not Available Marilin oliver [address] [place], [address] 06/17/2024 11:32:16 06/17/2006/17/2024 BASIC METAB OLIC PANEL BUN 21 mg/dL 7-18 high Not Available Marilin oliver [address] [place], [address] 06/17/2024 11:32:16 06/17/20 24 06/17/2024 BASIC METAB OLIC PANEL creatinine 1.5 mg/dL 0.55-1 .02 high Not Available [address] [place], [address] 06/17/2024 11:32:16 06/17/2006/17/2024 BASIC METAB OLIC PANEL estimated GFR 36.57 [...] young er-ag ed adult s. Not Available [address] [place], [address] 06/17/2024 11:32:16 06/17/2006/17/2024 BASIC METAB OLIC PANEL sodium 139 mmol/ L 136-14 5 normal Not Available [address] [place], [address] 06/17/2024 11:32:16 06/17/20 24 06/17/2024 BASIC METAB OLIC PANEL potassium 3.3 mmol/ L 3.5-5. 1 low Not Available [address] [place], [address] 06/17/2024 11:32:16 06/17/20 24 06/17/2024 BASIC METAB OLIC PANEL chloride 107 mmol/ L 98-107 normal Not Available [address] [place], [address] 06/17/2024 11:32:16 06/17/20 24 06/17/2024 BASIC METAB OLIC PANEL CO2 21.5 mmol/ L 21.0-3 2.0 normal Not Available [address] [place], [address] 06/17/2024 11:32:16 06/17/20 24 06/17/2024 BASIC METAB OLIC PANEL anion gap 10.5 mmol/ L 3-11 normal Not Available [address] [place], [address] 06/17/2024 11:32:16 06/17/20 24 06/17/2024 HEMOG LOBIN A1C hemoglobin A1C 5.4 % <5.7 Refer ence Range s <5.7 Lara l 5.7-6 .4% Predi abete s 6.5% or great er Diagn ostic for diabe raisa (if confi rmed) Refer ences : 1. [facility] can Diabe raisa [facility] i[facility] n. Clas sific ation and Diagn osis of Diabe raisa. Diabe raisa Care 2019 Sep; 2(Sup pleme nt 1):S1 3-s28 . Not Available [address] [place], [address] 06/17/2024 06:25:25 06/17/20 24 06/17/2024 BASIC METAB OLIC PANEL calcium 9.0 mg/dL 8.5-10 .1 normal Not Available [address] [place], [address] 06/17/2024 05:57:23 06/17/20 24 06/17/2024 BASIC METAB OLIC PANEL glucose 107 mg/dL 74-106 high Not Available Marilin oliver [address] [place], [address] 06/17/2024 05:57:23 06/17/20 24 06/17/2024 BASIC METAB OLIC PANEL BUN 23 mg/dL 7-18 high Not Available Marilin oliver [address] [place], [address] 06/17/2024 05:57:23 06/17/20 24 06/17/2024 BASIC METAB OLIC PANEL creatinine 1.5 mg/dL 0.55-1 .02 high Not Available [address] [place], [address] 06/17/2024 05:57:23 06/17/20 24 06/17/2024 BASIC METAB [...] young er-ag ed adult s. Not Available [address] [place], [address] 06/17/2024 05:57:23 06/17/20 24 06/17/2024 BASIC METAB OLIC PANEL sodium 141 mmol/ L 136-14 5 normal Not Available [address] [place], [address] 06/17/2024 05:57:23 06/17/20 24 06/17/2024 BASIC METAB OLIC PANEL potassium 2.9 mmol/ L 3.5-5. 1 critical low Criti shea value repor liz to and readb ack from FÉLIX CHU (RN), [place] at 0554 06/17 by LAB.I DOTTIE Not Available [address] [place], [address] 06/17/2024 05:57:23 06/17/20 24 06/17/2024 BASIC METAB OLIC PANEL chloride 109 mmol/ L 98-107 high Not Available [address] [place], [address] 06/17/2024 05:57:23 06/17/20 24 06/17/2024 BASIC METAB OLIC PANEL CO2 20.7 mmol/ L 21.0-3 2.0 low Not Available [address] [place], [address] 06/17/2024 05:57:23 06/17/20 24 06/17/2024 BASIC METAB OLIC PANEL anion gap 11.3 mmol/ L 3-11 high Not Available [address] [place], [address] 06/17/2024 05:57:23 06/17/20 24 06/17/2024 COMPL ETE BLOOD COUNT W/DIF F WBC 8.86 10_3/ uL 4.4-10 .8 normal Not Available [address] [place], [address] 06/17/2024 05:44:23 06/17/20 24 06/17/2024 COMPL ETE BLOOD COUNT W/DIF F RBC 3.36 10_6/ uL 3.93-5 .22 low Not Available [address] [place], [address] 06/17/2024 05:44:23 06/17/20 24 06/17/2024 COMPL ETE BLOOD COUNT W/DIF F HGB 10.4 g/dL 11.2-1 5.7 low Not Available [address] [place], [address] 06/17/2024 05:44:23 06/17/20 24 06/17/2024 COMPL ETE BLOOD COUNT W/DIF F HCT 29.8 % 36.0-4 6.0 low Not Available [address] [place], [address] 06/17/2024 05:44:23 06/17/20 24 06/17/2024 COMPL ETE BLOOD COUNT W/DIF F MCV 89 fL 80-95 normal Not Available [address] [place], [address] 06/17/2024 05:44:23 06/17/20 24 06/17/2024 COMPL ETE BLOOD COUNT W/DIF F MCH 31.0 pg 27.0-3 3.0 normal Not Available [address] [place], [address] 06/17/2024 05:44:23 06/17/20 24 06/17/2024 COMPL ETE BLOOD COUNT W/DIF F MCHC 34.9 % 32.0-3 6.0 normal Not Available [address] [place], [address] 06/17/2024 05:44:23 06/17/20 24 06/17/2024 COMPL ETE BLOOD COUNT W/DIF F RDW 12.3 % 11.7-1 4.6 normal Not Available [address] [place], [address] 06/17/2024 05:44:23 06/17/20 24 06/17/2024 COMPL ETE BLOOD COUNT W/DIF F platelet count 219 10_3/ uL 130-40 0 normal Not Available [address] [place], [address] 06/17/2024 05:44:23 06/17/20 24 06/17/2024 COMPL ETE BLOOD COUNT W/DIF F MPV 10.5 fL 8.0-11 .0 normal Not Available [address] [place], [address] 06/17/2024 05:44:23 06/17/20 24 06/17/2024 COMPL ETE BLOOD COUNT W/DIF F neutrophils % 51.9 % Not Available [address] [place], [address] 06/17/2024 05:44:23 06/17/20 24 06/17/2024 COMPL ETE BLOOD COUNT W/DIF F lymphocytes % 37.2 % Not Available [address] [place], [address] 06/17/2024 05:44:23 06/17/20 24 06/17/2024 COMPL ETE BLOOD COUNT W/DIF F monocytes % 7.4 % Not Available [address] [place], [address] 06/17/2024 05:44:23 06/17/20 24 06/17/2024 COMPL ETE BLOOD COUNT W/DIF F eosinophils % 2.7 % Not Available [address] [place], [address] 06/17/2024 05:44:23 06/17/20 24 06/17/2024 COMPL ETE BLOOD COUNT W/DIF F basophils % 0.6 % Not Available [address] [place], [address] 06/17/2024 05:44:23 06/17/20 24 06/17/2024 COMPL ETE BLOOD COUNT W/DIF F immature grans % 0.2 % Not Available [address] [place], [address] 06/17/2024 05:44:23 06/17/20 24 06/17/2024 COMPL ETE BLOOD COUNT W/DIF F nucleated RBC 0.0 % 0.0-0. 3 normal Not Available [address] [place], [address] 06/17/2024 05:44:23 06/17/20 24 06/17/2024 COMPL ETE BLOOD COUNT W/DIF F absolute neutrophil count 4.59 10_3/ uL 1.2-6. 7 normal Not Available [address] [place], [address] 06/17/2024 05:44:23 06/17/20 24 06/17/2024 COMPL ETE BLOOD COUNT W/DIF F absolute lymphocyte count 3.30 10_3/ uL 1.2-3. 4 normal Not Available [address] [place], [address] 06/17/2024 05:44:23 06/17/20 24 06/17/2024 COMPL ETE BLOOD COUNT W/DIF F absolute monocyte count 0.66 10_3/ uL 0.1-0. 8 normal Not Available [address] [place], [address] 06/17/2024 05:44:23 06/17/20 24 06/17/2024 COMPL ETE BLOOD COUNT W/DIF F absolute eosinophil count 0.24 10_3/ uL 0.0-0. 7 normal Not Available [address] [place], [address] 06/17/2024 05:44:23 06/17/20 24 06/17/2024 COMPL ETE BLOOD COUNT W/DIF F absolute basophil count 0.05 10_3/ uL 0.0-0. 2 normal Not Available [address] [place], [address] 06/17/2024 05:44:23 07/02/20 24 07/02/2024 BASIC METAB OLIC PANEL calcium 9.3 mg/dL 8.5-10 .1 normal Not Available [address] [place], [address] 07/02/2024 16:18:07 07/02/20 24 07/02/2024 BASIC METAB OLIC PANEL glucose 110 mg/dL 74-106 high Not Available Marilin [address] [place], [address] 07/02/2024 16:18:07 07/02/20 24 07/02/2024 BASIC METAB OLIC PANEL BUN 40 mg/dL 7-18 high Not Available Marilin oliver [address] [place], [address] 07/02/2024 16:18:07 07/02/20 24 07/02/2024 BASIC METAB OLIC PANEL creatinine 1.6 mg/dL 0.55-1 .02 high Not Available [address] [place], [address] 07/02/2024 16:18:07 07/02/20 24 07/02/2024 BASIC METAB [...] young er-ag ed adult s. Not Available [address] [place], [address] 07/02/2024 16:18:07 07/02/20 24 07/02/2024 BASIC METAB OLIC PANEL sodium 147 mmol/ L 136-14 5 high Not Available [address] [place], [address] 07/02/2024 16:18:07 07/02/20 24 07/02/2024 BASIC METAB OLIC PANEL potassium 3.9 mmol/ L 3.5-5. 1 normal Not Available [address] [place], [address] 07/02/2024 16:18:07 07/02/2007/02/2024 BASIC METAB OLIC PANEL chloride 116 mmol/ L 98-107 high Not Available [address] [place], [address] 07/02/2024 16:18:07 07/02/20 24 07/02/2024 BASIC METAB OLIC PANEL CO2 17.4 mmol/ L 21.0-3 2.0 low Not Available [address] [place], [address] 07/02/2024 16:18:07 07/02/20 24 07/02/2024 BASIC METAB OLIC PANEL anion gap 13.6 mmol/ L 3-11 high Not Available [address] [place], [address] 07/02/2024 16:18:07 07/09/20 24 07/09/2024 COMPL ETE BLOOD COUNT W/DIF F WBC 10.14 10_3/ uL 4.4-10 .8 normal Not Available [address] [place], [address] 07/09/2024 16:14:29 07/09/20 24 07/09/2024 COMPL ETE BLOOD COUNT W/DIF F RBC 3.43 10_6/ uL 3.93-5 .22 low Not Available [address] [place], [address] 07/09/2024 16:14:29 07/09/2007/09/2024 COMPL ETE BLOOD COUNT W/DIF F HGB 10.4 g/dL 11.2-1 5.7 low Not Available [address] [place], [address] 07/09/2024 16:14:29 07/09/2007/09/2024 COMPL ETE BLOOD COUNT W/DIF F HCT 32.0 % 36.0-4 6.0 low Not Available [address] [place], [address] 07/09/2024 16:14:29 07/09/2007/09/2024 COMPL ETE BLOOD COUNT W/DIF F MCV 93 fL 80-95 normal Not Available [address] [place], [address] 07/09/2024 16:14:29 07/09/2007/09/2024 COMPL ETE BLOOD COUNT W/DIF F MCH 30.3 pg 27.0-3 3.0 normal Not Available [address] [place], [address] 07/09/2024 16:14:29 07/09/2007/09/2024 COMPL ETE BLOOD COUNT W/DIF F MCHC 32.5 % 32.0-3 6.0 normal Not Available [address] [place], [address] 07/09/2024 16:14:29 07/09/2007/09/2024 COMPL ETE BLOOD COUNT W/DIF F RDW 13.6 % 11.7-1 4.6 normal Not Available [address] [place], [address] 07/09/2024 16:14:29 07/09/2007/09/2024 COMPL ETE BLOOD COUNT W/DIF F platelet count 286 10_3/ uL 130-40 0 normal Not Available [address] [place], [address] 07/09/2024 16:14:29 07/09/2007/09/2024 COMPL ETE BLOOD COUNT W/DIF F MPV 11.3 fL 8.0-11 .0 high Not Available [address] [place], [address] 07/09/2024 16:14:29 07/09/2007/09/2024 COMPL ETE BLOOD COUNT W/DIF F neutrophils % 75.1 % Not Available [address] [place], [address] 07/09/2024 16:14:29 07/09/2007/09/2024 COMPL ETE BLOOD COUNT W/DIF F lymphocytes % 16.1 % Not Available [address] [place], [address] 07/09/2024 16:14:29 07/09/2007/09/2024 COMPL ETE BLOOD COUNT W/DIF F monocytes % 6.5 % Not Available [address] [place], [address] 07/09/2024 16:14:29 07/09/2007/09/2024 COMPL ETE BLOOD COUNT W/DIF F eosinophils % 1.3 % Not Available [address] [place], [address] 07/09/2024 16:14:29 07/09/2007/09/2024 COMPL ETE BLOOD COUNT W/DIF F basophils % 0.6 % Not Available [address] [place], [address] 07/09/2024 16:14:29 07/09/2007/09/2024 COMPL ETE BLOOD COUNT W/DIF F immature grans % 0.4 % Not Available [address] [facility] [place], [address] 07/09/2024 16:14:29 07/09/2015 0707/09/2024 COMPL ETE BLOOD COUNT W/DIF F nucleated RBC 0.0 % 0.0-0. 3 normal Not Available [address] [place], [address] 07/09/2024 16:14:29 07/09/20 24 07/09/2024 COMPL ETE BLOOD COUNT W/DIF F absolute neutrophil count 7.62 10_3/ uL 1.2-6. 7 high Not Available [address] [place], [address] 07/09/2024 16:14:29 07/09/20 24 07/09/2024 COMPL ETE BLOOD COUNT W/DIF F absolute lymphocyte count 1.63 10_3/ uL 1.2-3. 4 normal Not Available [address] [place], [address] 07/09/2024 16:14:29 07/09/20 24 07/09/2024 COMPL ETE BLOOD COUNT W/DIF F absolute monocyte count 0.66 10_3/ uL 0.1-0. 8 normal Not Available [address] [place], [address] 07/09/2024 16:14:29 07/09/20 24 07/09/2024 COMPL ETE BLOOD COUNT W/DIF F absolute eosinophil count 0.13 10_3/ uL 0.0-0. 7 normal Not Available [address] [place], [address] 07/09/2024 16:14:29 07/09/20 24 07/09/2024 COMPL ETE BLOOD COUNT W/DIF F absolute basophil count 0.06 10_3/ uL 0.0-0. 2 normal Not Available [address] [place], [address] 07/09/2024 16:14:29 07/09/2007/09/2024 BASIC METAB OLIC PANEL calcium 9.2 mg/dL 8.5-10 .1 normal Not Available [address] [place], [address] 07/09/2024 16:20:26 07/09/2007/09/2024 BASIC METAB OLIC PANEL glucose 228 mg/dL 74-106 high Not Available Marilin oliver [address] [place], [address] 07/09/2024 16:20:26 07/09/20 24 07/09/2024 BASIC METAB OLIC PANEL BUN 45 mg/dL 7-18 high Not Available Marilin oliver [address] [place], [address] 07/09/2024 16:20:26 07/09/2007/09/2024 BASIC METAB OLIC PANEL creatinine 1.9 mg/dL 0.55-1 .02 high Not Available [address] [place], [address] 07/09/2024 16:20:26 07/09/2007/09/2024 BASIC METAB OLIC PANEL estimated GFR 27.37 [...] young er-ag ed adult s. Not Available [address] [place], [address] 07/09/2024 16:20:26 07/09/20 24 07/09/2024 BASIC METAB OLIC PANEL sodium 147 mmol/ L 136-14 5 high Not Available [address] [place], [address] 07/09/2024 16:20:26 07/09/20 24 07/09/2024 BASIC METAB OLIC PANEL potassium 3.4 mmol/ L 3.5-5. 1 low Not Available [address] [place], [address] 07/09/2024 16:20:26 07/09/20 24 07/09/2024 BASIC METAB OLIC PANEL chloride 112 mmol/ L 98-107 high Not Available [address] [facility] [place], [address] 07/09/2024 16:20:26 07/09/20 24 07/09/2024 BASIC METAB OLIC PANEL CO2 19.6 mmol/ L 21.0-3 2.0 low Not Available [address] [place], [address] 07/09/2024 16:20:26 07/09/2007/09/2024 BASIC METAB OLIC PANEL anion gap 15.4 mmol/ L 3-11 high Not Available [address] [facility] [place], [address] 07/09/2024 16:20:26 07/09/2007/09/2024 MAGNE SIUM magnesium 1.9 mg/dL 1.8-2. 4 normal Not Available [address] [facility] [place], [address] 07/09/2024 16:20:27 07/12/2007/12/2024 URINA LYSIS color Yellow yellow Not Available Marilin oliver [address] [facility] [place], [address] 07/12/2024 20:18:48 07/12/2007/12/2024 URINA LYSIS clarity Clear clear Not Available Marilin oliver [address] [facility] [place], [address] 07/12/2024 20:18:48 07/12/2007/12/2024 URINA LYSIS specific gravity 1.020 1.005- 1.025 normal Not Available [address] [facility] [place], [address] 07/12/2024 20:18:48 07/12/2007/12/2024 URINA LYSIS pH 5.5 5-8 normal Not Available Marilin oliver [address] [place], [address] 07/12/2024 20:18:48 07/12/20 24 07/12/2024 URINA LYSIS leukocyte esterase Negati ve negati ve Not Available [address] [place], [address] 07/12/2024 20:18:48 07/12/2007/12/2024 URINA LYSIS nitrite Negati ve negati ve Not Available [address] [place], [address] 07/12/2024 20:18:48 07/12/2007/12/2024 URINA LYSIS protein Trace mg/dL neg-tr erendira Not Available [address] [place], [address] 07/12/2024 20:18:48 07/12/2007/12/2024 URINA LYSIS glucose Negati ve mg/dL negati ve Not Available [address] [place], [address] 07/12/2024 20:18:48 07/12/2007/12/2024 URINA LYSIS ketones Negati ve mg/dL negati ve Not Available [address] [place], [address] 07/12/2024 20:18:48 07/12/2007/12/2024 URINA LYSIS urobilinogen 0.2 mg/dL up to 0.2 Not Available [address] [place], [id number] 07/12/2024 20:18:48 07/12/2007/12/2024 URINA LYSIS bilirubin Negati ve negati ve Not Available [address] [place], [address] 07/12/2024 20:18:48 07/12/2007/12/2024 URINA LYSIS blood Negati ve negati ve Not Available [address] [place], [address] 07/12/2024 20:18:48 07/12/2007/13/2024 URINE CULTU RE urine culture Urine Cultu re Day 1 Resul t NO GROWT H 24 HOURS Not Available [address] [place], [id number] 07/13/2024 12:29:16 07/12/20 24 07/14/2024 URINE CULTU RE urine culture Urine Cultu re APPEA DEBBIE Gram Posit jr Haylee COLON Y COUNT Not Available [address] [place], [address] 07/14/2024 08:16:51 07/12/2007/14/2024 URINE CULTU RE urine culture colon ies/m L <10,0 00 Day 1 Resul t NO GROWT H 24 HOURS Day 2 Resul t ISOLA RAISA BELOW O:GPF (ORGA NISM ID: [id number]) - GRAM POSIT JR HAYLEE Urine Cultu re (ORGA NISM ID: [id number]) - COLON Y COUNT (ORGA NISM ID: [id number]) - <10,0 00 Not Available [address] [place], [address] 07/14/2024 08:16:51 07/15/2007/15/2024 COMPL ETE BLOOD COUNT W/DIF F WBC 17.56 10_3/ uL 4.4-10 .8 high Not Available [address] [place], [address] 07/15/2024 16:03:58 07/15/2007/15/2024 COMPL ETE BLOOD COUNT W/DIF F RBC 3.73 10_6/ uL 3.93-5 .22 low Not Available [address] [place], [address] 07/15/2024 16:03:58 07/15/2007/15/2024 COMPL ETE BLOOD COUNT W/DIF F HGB 11.3 g/dL 11.2-1 5.7 normal Not Available [address] [place], [address] 07/15/2024 16:03:58 07/15/2007/15/2024 COMPL ETE BLOOD COUNT W/DIF F HCT 32.4 % 36.0-4 6.0 low Not Available [address] [place], [address] 07/15/2024 16:03:58 07/15/2007/15/2024 COMPL ETE BLOOD COUNT W/DIF F MCV 87 fL 80-95 normal Not Available Marilin oliver [address] [place], [address] 07/15/2024 16:03:58 07/15/2007/15/2024 COMPL ETE BLOOD COUNT W/DIF F MCH 30.3 pg 27.0-3 3.0 normal Not Available [address] [place], [address] 07/15/2024 16:03:58 07/15/2007/15/2024 COMPL ETE BLOOD COUNT W/DIF F MCHC 34.9 % 32.0-3 6.0 normal Not Available [address] [place], [address] 07/15/2024 16:03:58 07/15/2007/15/2024 COMPL ETE BLOOD COUNT W/DIF F RDW 13.1 % 11.7-1 4.6 normal Not Available [address] [place], [address] 07/15/2024 16:03:58 07/15/2007/15/2024 COMPL ETE BLOOD COUNT W/DIF F platelet count 351 10_3/ uL 130-40 0 normal Not Available [address] [place], [address] 07/15/2024 16:03:58 07/15/2007/15/2024 COMPL ETE BLOOD COUNT W/DIF F MPV 11.0 fL 8.0-11 .0 normal Not Available [address] [place], [address] 07/15/2024 16:03:58 07/15/2007/15/2024 COMPL ETE BLOOD COUNT W/DIF F neutrophils % 62.1 % Not Available [address] [place], [address] 07/15/2024 16:03:58 07/15/2007/15/2024 COMPL ETE BLOOD COUNT W/DIF F lymphocytes % 27.7 % Not Available [address] [place], [address] 07/15/2024 16:03:58 07/15/2007/15/2024 COMPL ETE BLOOD COUNT W/DIF F monocytes % 5.9 % Not Available [address] [place], [address] 07/15/2024 16:03:58 07/15/2007/15/2024 COMPL ETE BLOOD COUNT W/DIF F eosinophils % 2.1 % Not Available [address] [place], [address] 07/15/2024 16:03:58 07/15/2007/15/2024 COMPL ETE BLOOD COUNT W/DIF F basophils % 0.7 % Not Available [address] [place], [address] 07/15/2024 16:03:58 07/15/2007/15/2024 COMPL ETE BLOOD COUNT W/DIF F immature grans % 1.5 % Not Available [address] [place], [address] 07/15/2024 16:03:58 07/15/2007/15/2024 COMPL ETE BLOOD COUNT W/DIF F nucleated RBC 0.0 % 0.0-0. 3 normal Not Available [address] [place], [address] 07/15/2024 16:03:58 07/15/2007/15/2024 COMPL ETE BLOOD COUNT W/DIF F absolute neutrophil count 10.90 10_3/ uL 1.2-6. 7 high Not Available [address] [place], [address] 07/15/2024 16:03:58 07/15/2007/15/2024 COMPL ETE BLOOD COUNT W/DIF F absolute lymphocyte count 4.86 10_3/ uL 1.2-3. 4 high Not Available [address] [place], [address] 07/15/2024 16:03:58 07/15/2007/15/2024 COMPL ETE BLOOD COUNT W/DIF F absolute monocyte count 1.04 10_3/ uL 0.1-0. 8 high Not Available [address] [place], [address] 07/15/2024 16:03:58 07/15/2007/15/2024 COMPL ETE BLOOD COUNT W/DIF F absolute eosinophil count 0.37 10_3/ uL 0.0-0. 7 normal Not Available [address] [place], [address] 07/15/2024 16:03:58 07/15/20 24 07/15/2024 COMPL ETE BLOOD COUNT W/DIF F absolute basophil count 0.12 10_3/ uL 0.0-0. 2 normal Not Available [address] [place], [address] 07/15/2024 16:03:58 07/15/2007/15/2024 OCCUL T BLOOD STOOL GUAIA C(1SP ) occult blood stool guaiac(1sp) Occul t Blood Stool Guaia c(1sp ) STOOL OCCUL T BLOOD #1 NEGAT JR Not Available [address] [place], [address] 07/15/2024 17:04:06 07/16/2007/16/2024 TROPO LOPEZ I troponin I 23 NG/L <or=51 An eleva liz/a bnorm al tropo lopez value above 51ng/ L for Femal e and above 76ng/ L for Male( which is the 99th perce ntile cutof f of a lara l, healt hy refer ence popul ation ) must be inter prete d in the agusto xt of the clini shea prese ntati on. Clini shea and labor atory corre latio n is requi red to evalu ate for an acute myoca rdial infar ction . The resul ts of this assay can be false ly lower ed due to the consu mptio n of Bioti n (Aline min B7). Not Available [address] [place], [address] 07/16/2024 17:40:34 07/16/2007/16/2024 TROPO LOPEZ I troponin I 25 NG/L <or=51 An eleva liz/a bnorm al tropo lopez value above 51ng/ L for Femal e and above 76ng/ L for Male( which is the 99th perce ntile cutof f of a lara l, healt hy refer ence popul ation ) must be inter prete d in the agusto xt of the clini shea prese ntati on. Clini shea and labor atory corre latio n is requi red to evalu ate for an acute myoca rdial infar ction . The resul ts of this assay can be false ly lower ed due to the consu mptio n of Bioti n (Aline min B7). Not Available [address] [place], [address] 07/16/2024 16:33:29 07/16/2007/18/2024 URINE CULTU RE urine culture Urine Cultu re ACTIO N ID AND SUSCE PTIBI LITY TO FOLLO W APPEA DEBBIE Gram Negat jr Eugene APPEA DEBBIE Gram Negat jr Eugene COLON Y COUNT Not Available [address] [place], [address] 07/18/2024 07:55:55 07/16/2007/18/2024 URINE CULTU RE urine culture colon ies/m L >100, 000 COLON Y COUNT >100, 000 Day 1 Resul t ISOLA RAISA BELOW Day 2 Resul t ISOLA RAISA BELOW O:CIT CHITO (ORGA NISM ID: 1.1) - CITRO BACTE R FREUN DII Urine Cultu re (ORGA NISM ID: 1.1) - COLON Y COUNT (ORGA NISM ID: 1.1) - >100, 000 ORGAN ISM ID: [id number] ANTIB IOTIC INTER PRETA TION JOSEMANUEL STATU S Cefaz juan manuel R <=4 F Cefta zidim e S <=1 F CEFTR IAXON E S <=1 F Cipro floxa onel S <=0.2 5 F Genta micin S <=1 F Nitro furan toin S 32 F Imipe nem S <=0.2 5 F Levof loxac in S <=0.1 2 F Tobra mycin S <=1 F Trime thopr im/Merritt lfame thoxa zole S <=20 F Piper acill in/Ta zobac tarango S <=4 F Not Available [address] [place], [address] 07/18/2024 07:55:55 07/16/20 24 07/16/2024 MICRO SCOPI C FINDI NGS WBC >50 hpf 0-5 abnormal Not Available [address] [place], [address] 07/16/2024 16:16:24 07/16/20 24 07/16/2024 MICRO SCOPI C FINDI NGS RBC 3-5 hpf 0-2 abnormal Not Available [address] [place], [address] 07/16/2024 16:16:24 07/16/2007/16/2024 MICRO SCOPI C FINDI NGS epithelial cells Few hpf negati ve Not Available [address] [place], [address] 07/16/2024 16:16:24 07/16/2007/16/2024 MICRO SCOPI C FINDI NGS other cells Negati ve negati ve Not Available [address] [place], [address] 07/16/2024 16:16:24 07/16/2007/16/2024 MICRO SCOPI C FINDI NGS bacteria Packed hpf negati ve Not Available [address] [place], [address] 07/16/2024 16:16:24 07/16/2007/16/2024 MICRO SCOPI C FINDI NGS crystals Negati ve hpf negati ve Not Available [address] [place], [address] 07/16/2024 16:16:24 07/16/2007/16/2024 MICRO SCOPI C FINDI NGS mucus Negati ve negati ve Not Available [address] [place], [address] 07/16/2024 16:16:24 07/16/2007/16/2024 MICRO SCOPI C FINDI NGS casts Negati ve lpf negati ve Not Available [address] [place], [address] 07/16/2024 16:16:24 10/25/20 24 07/16/2024 MICRO SCOPI C FINDI NGS C S indicated? Yes Not Available [address] [place], [address] 07/16/2024 16:16:24 07/16/2007/16/2024 URINA LYSIS color Yellow yellow Not Available Marilin oliver [address] [place], [address] 07/16/2024 16:16:23 07/16/2007/16/2024 URINA LYSIS clarity Sl Cloudy clear Not Available Tiffani pina [address] [facility] [place], [address] 07/16/2024 16:16:23 07/16/2007/16/2024 URINA LYSIS specific gravity 1.010 1.005- 1.025 normal Not Available [address] [facility] [place], [address] 07/16/2024 16:16:23 07/16/2007/16/2024 URINA LYSIS pH 6.0 5-8 normal Not Available Marilin oliver [address] [facility] [place], [address] 07/16/2024 16:16:23 07/16/2007/16/2024 URINA LYSIS leukocyte esterase Large negati ve abnormal Not Available [address] [facility] [place], [address] 07/16/2024 16:16:23 07/16/20 24 07/16/2024 URINA LYSIS nitrite Positi ve negati ve abnormal Not Available [address] [facility] [place], [address] 07/16/2024 16:16:23 07/16/2007/16/2024 URINA LYSIS protein Trace mg/dL neg-tr eerndira Not Available [address] [facility] [place], [address] 07/16/2024 16:16:23 07/16/20 24 07/16/2024 URINA LYSIS glucose Negati ve mg/dL negati ve Not Available [address] [facility] [place], [address] 07/16/2024 16:16:23 07/16/20 24 07/16/2024 URINA LYSIS ketones Negati ve mg/dL negati ve Not Available [address] [place], [address] 07/16/2024 16:16:23 07/16/2007/16/2024 URINA LYSIS urobilinogen 0.2 mg/dL up to 0.2 Not Available [address] [place], [address] 07/16/2024 16:16:23 07/16/2007/16/2024 URINA LYSIS bilirubin Negati ve negati ve Not Available [address] [place], [address] 07/16/2024 16:16:23 07/16/2007/16/2024 URINA LYSIS blood Trace- lysed negati ve abnormal Not Available [address] [place], [address] 07/16/2024 16:16:23 07/16/2007/16/2024 URINA LYSIS color Yellow yellow Not Available Marilin oliver [address] [place], [address] 07/16/2024 16:10:18 07/16/2007/16/2024 URINA LYSIS clarity Sl Cloudy clear Not Available Tiffani pina [address] [place], [address] 07/16/2024 16:10:18 07/16/2007/16/2024 URINA LYSIS specific gravity 1.010 1.005- 1.025 normal Not Available [address] [place], [address] 07/16/2024 16:10:18 07/16/2007/16/2024 URINA LYSIS pH 6.0 5-8 normal Not Available Marilin oliver [address] [place], [address] 07/16/2024 16:10:18 07/16/2007/16/2024 URINA LYSIS leukocyte esterase Large negati ve abnormal Not Available [address] [place], [address] 07/16/2024 16:10:18 07/16/2007/16/2024 URINA LYSIS nitrite Positi ve negati ve abnormal Not Available [address] [place], [address] 07/16/2024 16:10:18 07/16/2007/16/2024 URINA LYSIS protein Trace mg/dL neg-tr erendira Not Available [address] [place], [address] 07/16/2024 16:10:18 07/16/2007/16/2024 URINA LYSIS glucose Negati ve mg/dL negati ve Not Available [address] [place], [address] 07/16/2024 16:10:18 07/16/2007/16/2024 URINA LYSIS ketones Negati ve mg/dL negati ve Not Available [address] [place], [address] 07/16/2024 16:10:18 07/16/2007/16/2024 URINA LYSIS urobilinogen 0.2 mg/dL up to 0.2 Not Available [address] [place], [address] 07/16/2024 16:10:18 07/16/2007/16/2024 URINA LYSIS bilirubin Negati ve negati ve Not Available [address] [place], [address] 07/16/2024 16:10:18 07/16/2007/16/2024 URINA LYSIS blood Trace- lysed negati ve abnormal Not Available [address] [place], [address] 07/16/2024 16:10:18 07/16/2007/17/2024 URINE CULTU RE urine culture Urine Cultu re ACTIO N ID AND SUSCE PTIBI LITY TO FOLLO W APPEA DEBBIE Gram Negat jr Eugene COLON Y COUNT Not Available [address] [place], [address] 07/17/2024 11:54:46 07/16/2007/17/2024 URINE CULTU RE urine culture colon ies/m L >100, 000 Day 1 Resul t ISOLA RAISA BELOW O:GNR (ORGA NISM ID: 1.1) - GRAM NEGAT JR EUGENE Urine Cultu re (ORGA NISM ID: 1.1) - COLON Y COUNT (ORGA NISM ID: 1.1) - >100, 000 Not Available [address] [place], [address] 07/17/2024 11:54:46 07/16/2007/16/2024 TROPO LOPEZ I troponin I 26 NG/L <or=51 An eleva liz/a bnorm al tropo lopez value above 51ng/ L for Femal e and above 76ng/ L for Male( which is the 99th perce ntile cutof f of a lara l, healt hy refer ence popul ation ) must be inter prete d in the agusto xt of the clini shea prese ntati on. Clini shea and labor atory corre latio n is requi red to evalu ate for an acute myoca rdial infar ction . The resul ts of this assay can be false ly lower ed due to the consu mptio n of Bioti n (Aline min B7). Not Available [address] [place], [address] 07/16/2024 14:34:00 07/16/2007/16/2024 MAGNE SIUM magnesium 2.1 mg/dL 1.8-2. 4 normal Not Available [address] [facility] [place], [address] 07/16/2024 14:34:00 07/16/2007/16/2024 COMPR EHENS JR METAB OLIC PANEL calcium 9.5 mg/dL 8.5-10 .1 normal Not Available [address] [facility] [place], [address] 07/16/2024 14:33:59 07/16/2007/16/2024 COMPR EHENS JR METAB OLIC PANEL glucose 142 mg/dL 74-106 high Not Available Marilin oliver [address] [facility] [place], [address] 07/16/2024 14:33:59 07/16/2007/16/2024 COMPR EHENS JR METAB OLIC PANEL BUN 35 mg/dL 7-18 high Not Available Marilin oliver [address] [place], [address] 07/16/2024 14:33:59 07/16/2007/16/2024 COMPR EHENS JR METAB OLIC PANEL creatinine 2.1 mg/dL 0.55-1 .02 high Not Available [address] [place], [address] 07/16/2024 14:33:59 07/16/2007/16/2024 COMPR EHENS JR METAB OLIC PANEL estimated GFR 24.27 mL/min /1.73M 2 The eGFR is calcu [...] young er-ag ed adult s. Not Available [address] [place], [address] 07/16/2024 14:33:59 07/16/2007/16/2024 COMPR EHENS JR METAB OLIC PANEL total protein 7.4 g/dL 6.4-8. 2 normal Not Available [address] [place], [address] 07/16/2024 14:33:59 07/16/2007/16/2024 COMPR EHENS JR METAB OLIC PANEL albumin 3.4 g/dL 3.4-5. 0 normal Not Available [address] [place], [address] 07/16/2024 14:33:59 07/16/2007/16/2024 COMPR EHENS JR METAB OLIC PANEL bilirubin, total 0.41 mg/dL 0.2-1. 0 normal Not Available [address] [place], [address] 07/16/2024 14:33:59 07/16/2007/16/2024 COMPR EHENS JR METAB OLIC PANEL alk phos 112 U/L 46-116 normal Not Available [address] [place], [address] 07/16/2024 14:33:59 07/16/2007/16/2024 COMPR EHENS JR METAB OLIC PANEL sodium 141 mmol/ L 136-14 5 normal Not Available [address] [place], [address] 07/16/2024 14:33:59 07/16/2007/16/2024 COMPR EHENS JR METAB OLIC PANEL potassium 2.6 mmol/ L 3.5-5. 1 critical low Criti shea value MAGGIE VILLAGRAN repor liz to and readb ack from [facility] at 1430 07/16 by LAB.B ONC Not Available [address] [place], [address] 07/16/2024 14:33:59 07/16/2007/16/2024 COMPR EHENS JR METAB OLIC PANEL chloride 105 mmol/ L 98-107 normal Not Available [address] [place], [address] 07/16/2024 14:33:59 07/16/2007/16/2024 COMPR EHENS JR METAB OLIC PANEL CO2 22.6 mmol/ L 21.0-3 2.0 normal Not Available [address] [place], [address] 07/16/2024 14:33:59 07/16/2007/16/2024 COMPR EHENS JR METAB OLIC PANEL anion gap 13.4 mmol/ L 3-11 high Not Available [address] [place], [address] 07/16/2024 14:33:59 07/16/2007/16/2024 COMPR EHENS JR METAB OLIC PANEL AST 29 U/L 15-37 normal Not Available [address] [place], [address] 07/16/2024 14:33:59 07/16/2007/16/2024 COMPR EHENS JR METAB OLIC PANEL ALT 26 U/L 14-59 normal Not Available Marilin oliver [address] [place], [address] 07/16/2024 14:33:59 07/17/20 24 07/17/2024 MAGNE SIUM magnesium 2.0 mg/dL 1.8-2. 4 normal Not Available [address] [facility] [place], [address] 07/17/2024 12:10:48 07/17/2007/17/2024 LAB ADD ON TEST lab add on test DONE Not Available Yamil marrero [address] [place], [address] 07/17/2024 11:46:45 07/17/2007/17/2024 BASIC METAB OLIC PANEL calcium 8.8 mg/dL 8.5-10 .1 normal Not Available [address] [facility] [place], [address] 07/17/2024 06:55:30 07/17/2007/17/2024 BASIC METAB OLIC PANEL glucose 95 mg/dL 74-106 normal Not Available Marilin oliver [address] [place], [address] 07/17/2024 06:55:30 07/17/2007/17/2024 BASIC METAB OLIC PANEL BUN 30 mg/dL 7-18 high Not Available Marilin oliver [address] [facility] [place], [address] 07/17/2024 06:55:30 07/17/2007/17/2024 BASIC METAB OLIC PANEL creatinine 1.8 mg/dL 0.55-1 .02 high Not Available [address] [facility] [place], [address] 07/17/2024 06:55:30 07/17/2007/17/2024 BASIC METAB OLIC PANEL estimated GFR 29.20 mL/min /1.73M 2 The eGFR is calcu [...] young er-ag ed adult s. Not Available [address] [place], [address] 07/17/2024 06:55:30 07/17/2007/17/2024 BASIC METAB OLIC PANEL sodium 146 mmol/ L 136-14 5 high Not Available [address] [place], [address] 07/17/2024 06:55:30 07/17/2007/17/2024 BASIC METAB OLIC PANEL potassium 3.1 mmol/ L 3.5-5. 1 low Not Available [address] [place], [address] 07/17/2024 06:55:30 07/17/2007/17/2024 BASIC METAB OLIC PANEL chloride 111 mmol/ L 98-107 high Not Available [address] [place], [address] 07/17/2024 06:55:30 07/17/2007/17/2024 BASIC METAB OLIC PANEL CO2 23.7 mmol/ L 21.0-3 2.0 normal Not Available [address] [place], [address] 07/17/2024 06:55:30 07/17/2007/17/2024 BASIC METAB OLIC PANEL anion gap 11.3 mmol/ L 3-11 high Not Available [address] [place], [address] 07/17/2024 06:55:30 07/17/2007/17/2024 COMPL ETE BLOOD COUNT W/DIF F WBC 14.09 10_3/ uL 4.4-10 .8 high Not Available [address] [place], [address] 07/17/2024 06:46:28 07/17/2007/17/2024 COMPL ETE BLOOD COUNT W/DIF F RBC 2.98 10_6/ uL 3.93-5 .22 low Not Available [address] [place], [address] 07/17/2024 06:46:28 07/17/2007/17/2024 COMPL ETE BLOOD COUNT W/DIF F HGB 9.2 g/dL 11.2-1 5.7 low Not Available [address] [place], [address] 07/17/2024 06:46:28 07/17/2007/17/2024 COMPL ETE BLOOD COUNT W/DIF F HCT 25.7 % 36.0-4 6.0 low Not Available [address] [place], [address] 07/17/2024 06:46:28 07/17/2007/17/2024 COMPL ETE BLOOD COUNT W/DIF F MCV 86 fL 80-95 normal Not Available [address] [place], [address] 07/17/2024 06:46:28 07/17/2007/17/2024 COMPL ETE BLOOD COUNT W/DIF F MCH 30.9 pg 27.0-3 3.0 normal Not Available [address] [place], [address] 07/17/2024 06:46:28 07/17/2007/17/2024 COMPL ETE BLOOD COUNT W/DIF F MCHC 35.8 % 32.0-3 6.0 normal Not Available [address] [place], [address] 07/17/2024 06:46:28 07/17/2007/17/2024 COMPL ETE BLOOD COUNT W/DIF F RDW 13.2 % 11.7-1 4.6 normal Not Available [address] [place], [address] 07/17/2024 06:46:28 07/17/2007/17/2024 COMPL ETE BLOOD COUNT W/DIF F platelet count 307 10_3/ uL 130-40 0 normal Not Available [address] [place], [address] 07/17/2024 06:46:28 07/17/2007/17/2024 COMPL ETE BLOOD COUNT W/DIF F MPV 10.5 fL 8.0-11 .0 normal Not Available [address] [place], [address] 07/17/2024 06:46:28 07/17/2007/17/2024 COMPL ETE BLOOD COUNT W/DIF F neutrophils % 62.3 % Not Available [address] [place], [address] 07/17/2024 06:46:28 07/17/2007/17/2024 COMPL ETE BLOOD COUNT W/DIF F lymphocytes % 27.3 % Not Available [address] [place], [address] 07/17/2024 06:46:28 07/17/2007/17/2024 COMPL ETE BLOOD COUNT W/DIF F monocytes % 6.4 % Not Available [address] [place], [address] 07/17/2024 06:46:28 07/17/2007/17/2024 COMPL ETE BLOOD COUNT W/DIF F eosinophils % 2.0 % Not Available [address] [place], [address] 07/17/2024 06:46:28 07/17/2007/17/2024 COMPL ETE BLOOD COUNT W/DIF F basophils % 0.4 % Not Available [address] [place], [address] 07/17/2024 06:46:28 07/17/2007/17/2024 COMPL ETE BLOOD COUNT W/DIF F immature grans % 1.6 % Not Available [address] [place], [address] 07/17/2024 06:46:28 07/17/2007/17/2024 COMPL ETE BLOOD COUNT W/DIF F nucleated RBC 0.0 % 0.0-0. 3 normal Not Available [address] [place], [address] 07/17/2024 06:46:28 07/17/2007/17/2024 COMPL ETE BLOOD COUNT W/DIF F absolute neutrophil count 8.78 10_3/ uL 1.2-6. 7 high Not Available [address] [place], [address] 07/17/2024 06:46:28 07/17/2007/17/2024 COMPL ETE BLOOD COUNT W/DIF F absolute lymphocyte count 3.85 10_3/ uL 1.2-3. 4 high Not Available [address] [place], [address] 07/17/2024 06:46:28 07/17/2007/17/2024 COMPL ETE BLOOD COUNT W/DIF F absolute monocyte count 0.90 10_3/ uL 0.1-0. 8 high Not Available [address] [place], [address] 07/17/2024 06:46:28 07/17/2007/17/2024 COMPL ETE BLOOD COUNT W/DIF F absolute eosinophil count 0.28 10_3/ uL 0.0-0. 7 normal Not Available [address] [place], [address] 07/17/2024 06:46:28 07/17/2007/17/2024 COMPL ETE BLOOD COUNT W/DIF F absolute basophil count 0.06 10_3/ uL 0.0-0. 2 normal Not Available [address] [place], [address] 07/17/2024 06:46:28 07/18/2007/18/2024 C DIFF PCR C diff PCR Negati ve negati ve Not Available [address] [place], [address] 07/18/2024 19:47:40 07/18/2007/18/2024 HEMOG LOBIN /ADI TOCRI T HGB 9.9 g/dL 11.2-1 5.7 low Not Available [address] [place], [address] 07/18/2024 14:31:24 07/18/2007/18/2024 HEMOG LOBIN /ADI TOCRI T HCT 28.5 % 36.0-4 6.0 low Not Available [address] [place], [address] 07/18/2024 14:31:24 07/19/20 24 07/19/2024 BASIC METAB OLIC PANEL calcium 8.7 mg/dL 8.5-10 .1 normal Not Available [address] [place], [address] 07/19/2024 06:38:26 07/19/2007/19/2024 BASIC METAB OLIC PANEL glucose 110 mg/dL 74-106 high Not Available Marilin oliver [address] [place], [address] 07/19/2024 06:38:26 07/19/2007/19/2024 BASIC METAB OLIC PANEL BUN 18 mg/dL 7-18 normal Not Available Marilin oliver [address] [place], [address] 07/19/2024 06:38:26 07/19/2007/19/2024 BASIC METAB OLIC PANEL creatinine 1.7 mg/dL 0.55-1 .02 high Not Available [address] [place], [address] 07/19/2024 06:38:26 07/19/2007/19/2024 BASIC METAB OLIC PANEL estimated GFR 31.27 mL/min /1.73M 2 The eGFR is calcu [...] young er-ag ed adult s. Not Available [address] [place], [address] 07/19/2024 06:38:26 07/19/2007/19/2024 BASIC METAB OLIC PANEL sodium 146 mmol/ L 136-14 5 high Not Available [address] [place], [address] 07/19/2024 06:38:26 07/19/2007/19/2024 BASIC METAB OLIC PANEL potassium 3.3 mmol/ L 3.5-5. 1 low Not Available [address] [place], [address] 07/19/2024 06:38:26 07/19/2007/19/2024 BASIC METAB OLIC PANEL chloride 112 mmol/ L 98-107 high Not Available [address] [place], [address] 07/19/2024 06:38:26 07/19/2007/19/2024 BASIC METAB OLIC PANEL CO2 22.9 mmol/ L 21.0-3 2.0 normal Not Available [address] [place], [address] 07/19/2024 06:38:26 07/19/2007/19/2024 BASIC METAB OLIC PANEL anion gap 11.1 mmol/ L 3-11 high Not Available [address] [place], [address] 07/19/2024 06:38:26 07/19/2007/19/2024 COMPL ETE BLOOD COUNT W/DIF F WBC 13.86 10_3/ uL 4.4-10 .8 high Not Available [address] [place], [address] 07/19/2024 06:26:26 07/19/2007/19/2024 COMPL ETE BLOOD COUNT W/DIF F RBC 3.15 10_6/ uL 3.93-5 .22 low Not Available [address] [place], [address] 07/19/2024 06:26:26 07/19/2007/19/2024 COMPL ETE BLOOD COUNT W/DIF F HGB 9.5 g/dL 11.2-1 5.7 low Not Available [address] [place], [address] 07/19/2024 06:26:26 07/19/20 24 07/19/2024 COMPL ETE BLOOD COUNT W/DIF F HCT 28.0 % 36.0-4 6.0 low Not Available [address] [place], [address] 07/19/2024 06:26:26 07/19/20 24 07/19/2024 COMPL ETE BLOOD COUNT W/DIF F MCV 89 fL 80-95 normal Not Available [address] [place], [address] 07/19/2024 06:26:26 07/19/20 24 07/19/2024 COMPL ETE BLOOD COUNT W/DIF F MCH 30.2 pg 27.0-3 3.0 normal Not Available [address] [place], [address] 07/19/2024 06:26:26 07/19/20 24 07/19/2024 COMPL ETE BLOOD COUNT W/DIF F MCHC 33.9 % 32.0-3 6.0 normal Not Available [address] [place], [address] 07/19/2024 06:26:26 07/19/20 24 07/19/2024 COMPL ETE BLOOD COUNT W/DIF F RDW 13.6 % 11.7-1 4.6 normal Not Available [address] [place], [address] 07/19/2024 06:26:26 07/19/20 24 07/19/2024 COMPL ETE BLOOD COUNT W/DIF F platelet count 308 10_3/ uL 130-40 0 normal Not Available [address] [place], [address] 07/19/2024 06:26:26 07/19/20 24 07/19/2024 COMPL ETE BLOOD COUNT W/DIF F MPV 10.3 fL 8.0-11 .0 normal Not Available [address] [place], [address] 07/19/2024 06:26:26 07/19/2007/19/2024 COMPL ETE BLOOD COUNT W/DIF F neutrophils % 52.9 % Not Available [address] [place], [address] 07/19/2024 06:26:26 07/19/20 24 07/19/2024 COMPL ETE BLOOD COUNT W/DIF F lymphocytes % 33.9 % Not Available [address] [place], [address] 07/19/2024 06:26:26 07/19/2007/19/2024 COMPL ETE BLOOD COUNT W/DIF F monocytes % 7.4 % Not Available [address] [place], [address] 07/19/2024 06:26:26 07/19/2007/19/2024 COMPL ETE BLOOD COUNT W/DIF F eosinophils % 3.0 % Not Available [address] [place], [address] 07/19/2024 06:26:26 07/19/20 24 07/19/2024 COMPL ETE BLOOD COUNT W/DIF F basophils % 0.6 % Not Available [address] [place], [address] 07/19/2024 06:26:26 07/19/20 24 07/19/2024 COMPL ETE BLOOD COUNT W/DIF F immature grans % 2.2 % Not Available [address] [place], [address] 07/19/2024 06:26:26 07/19/20 24 07/19/2024 COMPL ETE BLOOD COUNT W/DIF F nucleated RBC 0.0 % 0.0-0. 3 normal Not Available [address] [place], [address] 07/19/2024 06:26:26 07/19/20 24 07/19/2024 COMPL ETE BLOOD COUNT W/DIF F absolute neutrophil count 7.33 10_3/ uL 1.2-6. 7 high Not Available [address] [place], [address] 07/19/2024 06:26:26 07/19/20 24 07/19/2024 COMPL ETE BLOOD COUNT W/DIF F absolute lymphocyte count 4.70 10_3/ uL 1.2-3. 4 high Not Available [address] [place], [address] 07/19/2024 06:26:26 07/19/20 24 07/19/2024 COMPL ETE BLOOD COUNT W/DIF F absolute monocyte count 1.03 10_3/ uL 0.1-0. 8 high Not Available [address] [place], [address] 07/19/2024 06:26:26 07/19/20 24 07/19/2024 COMPL ETE BLOOD COUNT W/DIF F absolute eosinophil count 0.42 10_3/ uL 0.0-0. 7 normal Not Available [address] [place], [address] 07/19/2024 06:26:26 07/19/20 24 07/19/2024 COMPL ETE BLOOD COUNT W/DIF F absolute basophil count 0.08 10_3/ uL 0.0-0. 2 normal Not Available [address] [place], [address] 07/19/2024 06:26:26 01/19/20 24 01/19/2024 MRI imagi ng repor t Obdulia t Name: Martha Payton Deyvi Unit #: [id number] Loc: DI Orderi ng Provid er: Yulissa Lainez Accoun t #: [id number] Status : REG CLI Primar y [...] - Dictat ed By: Aden Johnston M.D. 1338 Transc ribed By: Vickie RODRIGUEZ,Yessenia kendra 1338 [...] at the addres s above. Thank- you. [address] [place], [address] 01/19/2024 15:21:28 01/19/20 24 01/19/2024 MRI, brain , w/o contr ast No observ ation record ed[facility] [address] [place] [address] [place], [address], 01/20/2024 08:49:10 01/19/20 24 01/19/2024 MRI, brain , w/o contr ast No observ ation record ed. [facility] (Radiology) [address] [place] [address] [place], [address], 01/20/2024 08:49:24 03/02/20 24 03/02/2024 MRI imagi ng repor t Obdulia t Name: Martha Payton Unit #: [id number] Loc: DI Orderi ng Provid er: Yulissa Lainez Accoun t #: [id number] Status : REG CLI Primar y [...] occlus ion or signif icant stenos is. Lower In Supervisor ior Cerebr al Arteri es: Right: No aneury sm, occlus ion or signif icant stenos is. Left: No aneury sm, occlus ion or signif icant stenos is. The left pre school teacher ior cerebr al artery arises from the left pre school teacher ior commun icatin g artery which is [...] error, please notify us immedi laurel at [phone] and return the origin al report to us at the addres s above. Thank- you. [email or web address] [facility] [address], [place], [address] 03/03/2024 18:56:46 03/02/20 24 03/02/2024 MRI imagi ng repor t Patien t Name: Martha Payton Unit #: [id number] Loc: DI Orderi ng Provid er: FatouDanaradhalacy hanh Accoun t #: [id number] Status : REG CLI Primar y [...] occlus ion or signif icant stenos is. Facing Grinder al Caroti d: Right: No eviden ce of occlus ion or signif icant stenos is. Left: No eviden ce of occlus ion or signif icant stenos is. Early Childhood Education Worker al Caroti d: Right: No dissec tion, [...] its entire length . DATA REPOSI TORY: Ordernguyen d By: Yulissa Lainez CC: ------ ------ [...] error, please notify us immedi ately at [phone] and return the origin al report to us at the addres s above. Thank- you. [email or web address] [facility] [address], [place], [address] 03/03/2024 18:56:46 03/09/20 24 03/09/2024 ultra sound imagi ng repor t Patikatie t Name: Martha Payton Unit #: [id number] Loc: DI Orderi ng Provid er: Yulissa Lainez Accoun t #: [id number] Status : REG CLI Primar y [...] Grad 19.9 mmHg RVSP (TR) 22.9 mmHg Gin torres By: Yulissa Lainez CC: ------ ------ ------ ------ ------ ------ ------ ------ ------ ------ ------ ------ - Dictat ed By: Jaad Mondragon M.D. 1402 1417 Transc ribed By: [...] at the addres s above. Thank- you. [email or web address] [facility] [address], [place], [address] 03/15/2024 11:38:17 03/09/20 24 03/09/2024 CT imagi ng repor t Patien t Name: Martha Payton Unit #: [id number] Loc: DI Orderi ng Provid er: Yulissa Lainez Accoun t #: [id number] Status : REG CLI Primar y [...] facili ty are submit liz to the [facility] Radiol ogy Data Regist ry (NRDR) Dose [...] bution by any person other than this [facility] er is strict ly prohib ited. If you receiv e this report in error, please notify us immedi ately at [phone] and return the origin al report to us at the addres s above. Thank- you. [email or web address] [facility] [address] [place], [address] 03/15/2024 11:38:18 06/12/20 24 06/12/2024 x-ray imagi ng repor t Patien t Name: Martha Payton Unit #: [id number] Loc: ER Orderi ng Provid er: Lacho Correa M.D. Accoun t #: [id number] Status : REG ER Primar y [...] error, please notify us immedi michellely at [phone] and return the origin al report to us at the addres s above. Thank- you. INTERFACE [place] [address] [place], [address] 06/12/2024 18:34:32 06/12/20 24 06/12/2024 x-ray imagi ng repor t Patien t Name: Martha Payton Unit #: [id number] Loc: ER Orderi ng Provid er: Lacho Correa M.D. Accoun t #: [id number] Status : REG ER Primar y Care Provid er: FatouDanaradhalacy hanh Date of Exam: 05/24 10/15 Sex: [...] error, please notify us immedi ately at [phone] and return the origin al report to us at the addres s above. Thank- you. INTERFACE [place] [address], [place], [address] 06/12/2024 18:34:33 06/12/20 24 06/12/2024 CT imagi ng repor t Patien t Name: Martha Payton Unit #: [id number] Loc: ER Orderi ng Provid er: Lacho Correa M.D.oun t #: [id number] Status : REG ER Primar y [...] facili ty are submit liz to the [facility] al Radiol ogy Data Regist [...] the addres s above. Thank- you. 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 No signif icant stenos is remain lien of the right MCA. Right anteri or cerebr al artery : No occlus ion or signif icant stenos is. No aneury sm. Left product managent intern al caroti d artery : Calcif ied plaque with modera te stenos is cavern ous left ICA. Left middle cerebr al artery : No occlus ion or signif icant stenos is. No aneury sm. Left anteri or cerebr al artery : No occlus ion or signif icant stenos is. No aneury sm. MOBILE ARCHITECT IOR CIRCUL ATION: Right verteb ral artery : No occlus ion or signif icant stenos is. No aneury sm. Left verteb ral artery : No occlus ion or signif icant stenos is. No aneury sm. Basila r artery : No occlus ion or signif icant stenos is. No aneury sm. Right pre school teacher ior cerebr al artery : No occlus ion or signif icant stenos is. No aneury sm. Left pre school teacher ior cerebr al artery : No occlus ion or signif icant stenos is. No aneury sm. HEAD: Brain: Stable right pre school teacher ior fronta l and pariet al infarc [...] rkable . IMPRES BASIL: 1. 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 2. 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 3. Calcif ied plaque with modera te stenos is cavern ous left ICA. 4. 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 ASSESS MENT: [...] No dissec tion or occlus ion. Right product managent intern al caroti d artery : No stenos is of the extrac ranial segmen t. No dissec tion or occlus ion. Right night nurse al caroti d artery : No occlus ion or stenos is of the origin . Left common caroti d artery : No stenos is. No dissec tion or occlus ion. Left product managent intern al caroti d artery : No stenos is of the extrac ranial segmen t. No dissec tion or occlus ion. Left night nurse al caroti d artery : No occlus [...] the cervic al segmen t of the product managent intern al caroti d artery is based on NASCET criter ia. Normal is no stenos is. Mild is less than 50% stenos is. Modera te is 50-69% stenos is. Severe is 70% to 99% stenos is. Total occlus ion is no detect able patent lumen. Dictat ed and Authen ticate d by: Abelardo Nagel MD. Orderi ng:P.D ISST Shelby pina MD Access ion#=[id number] Ordernguyen d By: CC: ------ ------ ------ ------ ------ ------ ------ ------ ------ ------ ------ ------ ---- Dictat ed By: Report s vrad 2033 Transc ribed By: Chelsea Merge 2033 This is privil eged, confid [...] at the addres s above. Thank- you. [email or web address] [facility] [address] [place], [address] 06/15/2024 15:45:36 06/13/2006/13/2024 vrad repor t Patien t Name: Martha Payton Unit #: [id number] Loc: MS Monteiro ng Provid er: Accoun t #: [id number] Status : ADM IN Primar y [...] st. COMPAR NAHID: CT BRAIN NECK CTA 024 8:34 PM [...] MD. Orderi ng:Peyton Zhou MD Access ion#=[id number] Ordere d By: CC: ------ ------ ------ ------ ------ ------ ------ ------ ------ ------ ------ ------ ---- Dictat ed By: Report s vrad 09 1028 Transc ribed By: Chelsea Chanel 905 [...] at the addres s above. Thank- you. [email or web address] [address] [place], [address] 06/15/2024 15:45:36 06/13/2006/13/2024 CT imagi ng repor t Patien t Name: Martha Payton Unit #: [id number] Loc: Ordermariola ng Provid er: Lacho Correa M.D.oun t #: [id number] Status : ADM IN Primar y [...] right side there is calcif ied plaque pre school teacher iorly at the caroti d bulb-b ifurca tion level and there is also calcif ied plaque on the medial and pre school teacher ior saldaña of the proxim al right ICA. Amount of stenos is at this level is estima liz at approx imatel y 40 percen t in the proxim al right ICA. The right ICA is nicely patent in the upper neck. Left caroti d bulb exhibi ts some calcif ied plaque anteri sherry. There is calcif ied plaque on the pre school teacher ior wall the proxim al left ICA. Approx imatel y 30 percen t stenos is at this level. There is also self like plaque at the origin left ICA with more promin ent stenos is at this level, approx imatel y 70 percen t. Left ICA in the upper neck is patent . Lower In Supervisor ior circul ation: Both verteb ral arteri [...] Brain W: Anteri or circul ation: Both product managent intern al caroti d arteri es are patent in the skull base-c arotid canals . Both intra cavern ous product managent intern al caroti d arteri es are periph erally calcif ied. There is a signif icant focal stenos is at the juncti on of the intra cavern ous and suprac linoid aspect of the right product managent intern al caroti d artery with approx [...] or commun icatin g artery . Left pre school teacher ior cerebr al artery is patent withou t signif icant stenos is. There is mild-m oderat e narrow ing in the proxim al right middle cerebr al artery . No intral uminal thromb us seen. No aneury sms. No dissec tion flaps. Lower In Supervisor ior circul ation: The basila r artery ascend s in the midlin e. Distal ly it gives off patent right pre school teacher ior cerebr al artery althou gh there is a modera te stenos is in the pre school teacher ior cerebr al artery a few cm distal to its origin . The left pre school teacher ior cerebr al artery is predom inantl y fed by a pre school teacher ior commun icatin g artery on the left side of the [place]. This that There is no eviden ce of aneury sm at the tip of the basila r artery nor elsewh ere in the [place]. CT BRAIN: Again noted is [...] tion); or iterat jr recons tructi on 017: Total DLP = 0.00 mGy-cm Ordere d By: Lacho Correa M.D. CC: ------ ------ ------ ------ ------ ------ ------ ------ ------ ------ ------ ------ ---- Dictat ed By: Aden Johnston M.D. 1545 154 Transc ribed By: Vickie RODRIGUEZ,Yessenia kendra 154 This is privil eged, confid ential [...] the addres s above. Thank- you. INTERFACE [facility] [address], [place], [address] 06/13/2024 15:50:13 06/13/20 24 06/13/2024 CT imagi ng repor t Patien t Name: Martha Payton Unit #: [id number] Loc: MS Orderi ng Provid er: Jabari Bustamante Accoun t #: [id number] Status : ADM IN Primar [...] Dictat ed By: Aden Johnston M.D. 1602 160 Transc ribed By: Vickie RODRIGUEZ,Yessenia gardner 160 This is privil eged, confid ential [...] the addres s above. Thank- you. INTERFACE [facility] [address], [place], [address] 06/13/2024 16:16:16 06/14/20 24 06/14/2024 MRI imagi ng ofelia wilde Name: Martha Payton Unit #: [id number] Loc: Orderi ng Provid er: Jabari Bustamante Accoun t #: [id number] Status : ADM IN Primar [...] 2023 MR MR ANGIO BRAIN WO from 06/11/ [address] BRAIN NECK CTA from 2023 [...] the addres s above. Thank- you. INTERFACE [place] [address], [place], [address] 06/14/2024 12:37:22 06/14/20 24 06/14/2024 ultra sound imagi ng repor t Obdulia t Name: Martha Payton Unit #: [id number] Loc: Ordermariola barrios Provid er: Jabari Bustamante Accoun t #: [id number] Status : ADM IN Primar [...] the addres s above. Thank- you. INTERFACE [facility] [address], [place], [address] 06/14/2024 15:22:54 07/16/20 24 07/16/2024 CT imagi ng repor t Patien t Name: Martha Payton Unit #: [id number] Loc: ER Orderi ng Provid er: Stephania Hagan Accisael t #: [id number] Status : REG ER Primar y [...] Soft Tissue s: Unrema rkable . IMPRES BASIL: 1. Enceph alomal acia involv ing the [...] facili ty are submit liz to the [facility] al Radiol ogy Data Regist [...] tion); or iterat jr recons tructi on. 1025-0 025: Total DLP [...] the addres s above. Thank- you. INTERFACE [facility] [address] [place], [address] 07/16/2024 14:51:01 07/16/2007/16/2024 x-ray imagi ng repor t Obdulia t Name: Martha Payton Unit #: [id number] Loc: ER Orderi ng Provid er: Stephania Hagan Accisael t #: [id number] Status : REG ER Primar y Care Provid er: Yulissa Lainez hanh Date of Exam: 06/23 02/12 Sex: F Admiss ion Date: : 1949 Age: 74 Exam(s ) XR CHEST 2V PA LATERA L EXAM: XR CHEST 2V PA LATERA L CLINIC AL HISTOR Y: AMS TECHNI QUE: 2D digita l imagin g was perfor med of the chest. Images were obtain ed. PA and latera l views were obtain ed. COMPAR NAHID: CR XR CHEST 2V PA LATERA L from 2023 FINDIN GS: MEDIAS TINUM: Normal . HEART: Normal . The patien t is status post CABG. PULMON FAM VASCUL ATURE: Normal . LUNGS: No focal consol idatin g infilt rates. PLEURA L SPACE: There is a small right pleura l effusi on. No left pleura l effusi on. No pneumo thorax . BONE:W ithin normal limits for the patien t's age. Sterna l wires are in place. OTHER FINDIN GS:Nor mal. IMPRES BASIL: Small right pleura l effusi on. Otherw ise no acute pulmon fam proces s. DATA REPOSI TORY: RADIAT ION [...] the addres s above. Thank- you. INTERFACE [place] [address], [place], [address] 07/16/2024 14:58:08 07/16/2007/16/2024 CT imagi ng repor t Obdulia t Name: Martha Payton Unit #: [id number] Loc: ER Orderi ng Provid er: Stephania Hagan Accoun t #: [id number] Status : REG ER Primar y [...] Soft Tissue s: Unrema rkable . IMPRES BASIL: No change in appear ance of the hemorr raul compar ed to [facility]. RADIAT ION DOSE DELIVE RED: 819.49 mGy.cm Total DLP DATA REPOSI TORY: All CT scans at this facili ty are submit liz to the [facility] al Radiol ogy Data Regist [...] tion); or iterat jr recons tructi on. 1025-0 032: Total DLP [...] error, please notify us immedi laurel at [phone] and return the origin al report to us at the addres s above. Thank- you. INTERFACE [facility] [address] , [place], [address] 07/16/2024 17:29:32 Result Notes None recorded. Problems Name Problem SNOMED Code Status Onset Date Resolution Date Notes Provider Name and Address Organization Details Recorded Time Poor short-term memory 256750451 Active [address], [place], [address], [facility] 4 10:28:13 Essential hypertensi on 08426206 Active [address], [place], [address], [facility] 4 10:29:23 Blood glucose outside reference range 808920024 Active [address], [place], [address], [facility] 4 10:30:43 Iritis 23710737 Active [address], [place], [address], [facility] 4 10:31:43 Tobacco dependence caused by cigarettes 548913300623 36937 Active [address], [place], [address], [facility] 4 12:23:42 Adjustment disorder with depressed mood 03156323 Active [address], [place], [address], [facility] 4 12:26:28 Prediabete s 241278174 Active 2023 5.7% on [address], [place], [address] , [facility] 07:52:17 History of coronary artery bypass grafting 820970110 Active 2009 In 2010 per prior med recs [address], [place], [address], [facility] 14:53:13 Unexplaine d weight loss 132315239 Active [address], [place], [address] , [facility] 13:43:55 Chronic cough 47262605 Active [address], [place], [address], [facility] 13:44:00 Pain of left shoulder joint 416368384327 60499 Active [address], [place], [address] , [facility] 13:44:16 Hyperlipid emia 13528694 Active [address], [place], [address], [facility] 13:48:11 Chronic obstructiv e pulmonary disease 08887097 Active [address], [place], [address], [facility] 13:49:36 Lacunar infarction 039292488 Active [address], [place], [address], [facility] 4 18:17:27 Bradycardi a 66479247 Active [address], [place], [address], [facility] 4 18:36:12 Chronic kidney disease stage 3B 497764408 Active 2023 NOted in 1 Note in prior MR as stage 3 D/T HTN. Plan to control BP as care plan. [address], [place], [address], [facility] 4 05:24:31 Pulmonary emphysema 47201304 Active [address], [place], [address], [facility] 12:31:17 Leukocytos is 793981521 Active [address], [place], [address], [facility] 20:10:17 Pyuria 2673014 Active [address], [place], [address], [facility] 4 20:12:07 Agitation due to dementia 699168365 Active [address], [place], [address], [facility] 16:19:39 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 717586541 Active [address], [place], [address], [facility] 08:09:53 Hypokalemi a 29078135 Active [address], [place], [address], [facility] 08:10:59 Sundowning 994199460 Active [address], [place], [address], [facility] 08:12:54 Loose stool 018287921 Active [address], [place], [address], [facility] 09:45:26 Unsteady when walking 60333873 Active [address], [place], [address], [facility] 10:02:59 Decreased diastolic arterial pressure 55678808 Active [address], [place], [address], [facility] 4 10:04:18 Acute gastrointe stinal hemorrhage 11279613 Active [address], [place], [address], [facility]. 06:49:56 Cerebral infarction 625890189 Active [address], [place], [address], [facility] 06:50:08 Acute urinary tract infection 906583323 Active [address], [facility] [place], [address], [facility] 06:52:30 Hypernatjake yo 922164308 Active [address], [place], [address], [facility] 06:55:39 Problem Notes None recorded. Procedures Surgical History None recorded. Imaging Results Imaging Date Name Status LastModified by Organiz [facility] Details LastModified Time 01/19/2024 MRI imaging report completed [address] [place], [address] 01/19/2024 15:21:28 01/19/2024 MRI, brain, w/o contrast [facility] [address] [place] [address] [place], [address], 01/20/2024 08:49:10 01/19/2024 MRI, brain, w/o contrast [facility] [address] [place] [address] [place], [address], 01/20/2024 08:49:24 03/02/2024 MRI imaging report completed [address] [place], [address] 03/03/2024 18:56:46 03/02/2024 MRI imaging report completed [address] [place] [place], [address] 03/03/2024 18:56:46 03/09/2024 ultrasound imaging report completed 23 [place], [address] 03/15/2024 11:38:17 03/09/2024 CT imaging report completed [address] [place], [address] 03/15/2024 11:38:18 06/12/2024 x-ray imaging report completed INTERFACE [address] [place], [address] 06/12/2024 18:34:32 06/12/2024 x-ray imaging report completed INTERFACE [address] [place], [address] 06/12/2024 18:34:33 06/12/2024 CT imaging report completed INTERFACE [address] [place], [address] 06/12/2024 18:43:33 06/12/2024 vrad report completed [email or web address] [place] [address] [place], [address] 06/15/2024 15:45:36 06/13/2024 vrad report completed [id number] [place], [address] 06/15/2024 15:45:36 06/13/2024 CT imaging report completed INTERFACE [address] [place], [address] 06/13/2024 15:50:13 06/13/2024 CT imaging report completed INTERFACE [address] [place], [address] 06/13/2024 16:16:16 06/14/2024 MRI imaging report completed [address] [place], [address] 06/14/2024 12:37:22 06/14/2024 ultrasound imaging report completed INTERFACE [address] [place], [address] 06/14/2024 15:22:54 07/16/2024 CT imaging report completed INTERFACE [address] [place], [address] 07/16/2024 14:51:01 07/16/2024 x-ray imaging report completed [address] [place], [address] 07/16/2024 14:58:08 07/16/2024 CT imaging report completed [address] [place], [address] 07/16/2024 17:29:32 Procedure Notes None recorded. Medical Equipment None Reported. Allergies Allergen ID Allergen Name Allergen Category Reaction Reaction Severity Criticality Documentation Date Start Date Code Code System Note Provider Name and Address Organization Details Recorded Time 85443 chlorthal idone medicatio n Not available Not available [facility] 01/28/2024 2409 RxNoMARIAM Bryson [address], [place], [address] [place] [address] 17:56:24 99606 hydrochlo rothiazid e medicatio n Not available Not available [facility] 01/28/2024 5487 RxNoMARIAM Bryson [address], [place], [address] [place] [address] 17:56:38 Medications Name Sig Start Date Stop Date Status Note LastModified by Organization Details LastModified Time losartan 50 mg tablet Take 1 tablet twice a day by oral route as directed . 2023 active Per [facility] Not Available Not Available Not Available quetiapin e 25 mg tablet 1 tablet by mouth each night 2023 active Not Available Not Available Not Avai lable atorvasta tin 80 mg tablet Take 1 tablet every day by oral route at bedtime. 2023 active [facility] Not Available Not Available Not Available cefuroxim [...] route as directed . 2023 active per [facility] Not Available Not Available Not Available sucralfat e 1 gram tablet 1 tab by mouth before meals and at night active Started by [facility] in setting of GI bleed 07/19/20 D/C. [...] as directed . 2023 active [facility] Not Available Not Available Not Available aspirin 81 mg tablet,de layed release Take 1 tablet every day by oral route. 07/20 completed Pt, with acute hemorrag e and GI bleed at 07/13/20 24 [facility] hospital in setting of taking aspirin. Aspirin held at this time pending GI consult. Not Available Not Available Not Available pantopraz ole 40 mg tablet,de layed release Take 1 tablet every day by oral route. active started by [facility] in setting of GI bleed 07/19/20 d/c [...] route as directed . 2023 active Per [facility] Not Available Not Available Not [...] by patient son and daughter in-law caregive deyvi. Darshan edibles only at this time. Not Available Not Available Not Available Vitals Date Recorded Body height Body mass index (BMI) Body weight Body temperature Oxygen saturation Oxygen saturation in Arterial blood by Pulse oximetry Heart rate Systolic blood pressure Diastolic blood pressure Provider Name and Address Organization Details Last Updated DateTime 4 147.32 cm 21.2 kg/m2 87217.9 8 g 98.1 [degF] 98 % 98 % 55 /min 122 mm[Hg] 90 mm[Hg] DEEDEE PITTMAN MA [facility] 4 13:06:09 Date Recorded Body height Body mass index (BMI) Body weight Body temperature Oxygen saturation Oxygen saturation in Arterial blood by Pulse oximetry Heart rate Systolic blood pressure Diastolic blood pressure Provider Name and Address Organization Details Last Updated DateTime 4 147.32 cm 20.8 kg/m2 79535.0 8 g 97.7 [degF] 97 % 97 % 62 /min 130 mm[Hg] 72 mm[Hg] DEEDEE PITTMAN MA [facility] 4 11:29:51 Date Recorded Body [...] Updated DateTime 4 147.32 cm 20.5 kg/m2 09524.4 5 g 98.1 [degF] 99 % 99 % 62 /min 18 /min 195 mm[Hg] 63 mm[Hg] 211 mm[Hg] 102 mm[Hg] 210 mm[Hg] 75 mm[Hg] 199 mm[Hg] 66 mm[Hg] Keesha Zaragoza MA [facility] 4 21:02:19 Date Recorded Body height Body mass index (BMI) Body weight Body temperature Oxygen saturation Oxygen saturation in Arterial blood by Pulse oximetry Respiratory rate Heart rate Systolic blood pressure Diastolic blood pressure Provider Name and Address Organization Details Last Updated DateTime 4 147.32 cm 19.9 kg/m2 52021.9 9 g 98.6 [degF] 100 % 100 % 14 /min 70 /min 108 mm[Hg] 48 mm[Hg] SUKHDEV TORIBIO RN [facility] 4 09:38:14 Date Recorded Body height Body mass index (BMI) Body weight Body temperature Oxygen saturation Oxygen saturation in Arterial blood by Pulse oximetry Heart rate Systolic blood pressure Diastolic blood pressure Provider Name and Address Organization Details Last Updated DateTime 4 147.32 cm 20.4 kg/m2 57404.9 g 97.5 [degF] 97 % 97 % 52 /min 108 mm[Hg] 58 mm[Hg] DEEDEE PITTMAN MA [facility] 4 08:35:30 Social History Question Answer Notes LastModified by Organizat ion Details LastModified Time Tobacco Smoking Status Current Every Day Smoker Kylah Almnote MA null, [facility] 11/01/2023 11:33:08 Would You Say [...] Of Your Most Recent Tobacco Screening? 05/14/2024 [email or web address] Information n ot available 05/14/2024 How Much Tobacco Do You Smoke? 0.5 PPD [email or web address] Information not available 05/14/2024 Has Tobacco Cessation [...] 07/09/2024 completed MARIAM FANG [address], [facility] [address], [facility] 07/09/2024 11:46:08 COVID-19, mRNA, LNP-S, PF, angie-sucrose, 30 mcg/0.3 mL 07/09/2024 completed MARIAM FANG [address], [facility] [address], [facility] 07/09/2024 11:46:08 Tdap 07/09/2024 completed MARIAM FANG [address], [place], [address], [facility] 07/09/2024 11:46:08 Past Encounters Encounter ID Performer Location Encounter Start Date Encounter Closed Date Diagnosis/Indication Diagnosis SNOMED-CT Code Diagnosis ICD10 Code [id number] SAJAN REINOSO [address],[facility] [address] [place] [address] 11/01/2023 11:23:08 11/01/2023 12:27:22 Pain of left shoulder region 7620680731 M25.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-steroidal anti-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 9227302853 81222 Z79.1 Elevated blood-pressure reading without diagnosis of hypertension 852463154 R03.0 Cough 85220025 R05.9 [id number] MARIAM FANG [facility] [address] [place] [address] 12/11/2023 09:48:55 12/11/2023 11:47:56 Poor short-term memory 698192146 R41.3 History of coronary artery bypass grafting 146308902 Z95.1 Essential hypertension 33123129 I10 Diabetes m ellitus screening 496931185 Z13.1 Hyperlipid emia screening 153352100 Z13.220 Adjustment disorder with depressed mood 12739480 F43.21 Tobacco de pendence caused by cigarettes 2278991016 9466725 F17.346 [id number] MARIAM FANG [facility] [address] [place] [address] 01/28/2024 12:55:09 01/28/2024 14:09:34 Unexplained weight loss 022223603 R63.4 Chronic cough 32817921 R 05.3 Pain of le ft shoulder joint 7280621564 8631646 M25.512 Hyperlipidemia 43800842 E78.5 Chronic ob structive pulmonary disease 43287409 J44.9 Lacunar infarction 78286 8000 I63.81 Bradycardia 89035357 R00 .1 [id number] MARIAM FANG [facility] [address] [place] [address] 03/29/2024 11:20:50 03/29/2024 12:12:54 Tobacco dependence caused by cigarettes 5665551784 9878723 F17.210 Pulmonary emphysema 8743 3001 J43.9 Lacunar infarction 04530 8000 I63.81 Normal bod y mass index 23084195 Z68.20 Essential hypertension 64474977 I10 [id number] ISATU ZAMORA PA-C [address],[facility] [address] [place] [address] 05/14/2024 18:33:21 05/14/2024 21:16:51 Pyuria 3377350 R82.81 [id number] MARIAM FANG [facility] [address] [place] [facility] [place] [address] 07/09/2024 09:29:21 07/09/2024 10:24:04 Right sided cerebral hemisphere cerebrovascular accident 720502624 I63.9 Hypokalemia 76584568 E87 .6 Essential hypertension 80703657 I10 Sundowning 988307925 F05 Loose stool 656620884 R1 9.5 Unsteady when walking 22 473683 R26.89 Decreased diastolic arterial pressure 16716101 R03.1 Active or passive immunization 324360974 Z23 [id number] MARIAM FANG [address] [place] [address] 07/20/2024 08:15:21 07/20/2024 09:24:16 Acute gastrointestinal hemorrhage 26288735 K92.2 Cerebral infarction 4325 40116 I63.9 Acute urin fam tract infection 484393295 N39.0 Hypernatremia 639295817 E87.0 Health Concerns Section Related Observation LastModified by Organization Detai ls LastModified Time None Recorded Concern Status LastModified by Organization Details LastModified Time None Recorded Advance Directives Directive None Recorded Payers Encounter Date Sequence Insurance Name Policy Number Policy Nicole Covered Member ID Nicole Member ID Guarantor Name 01/28/2024 2 [employer] ([employer]ICA[employer]) Jennifer Archer [id number] Jennifer Archer 01/28/2024 1 [place] [employer] Jennifer Archer [id number] Jennifer Archer 03/29/2024 2 [employer] ([employer]) Jennifer De La Torreer [id number] Jennifer Archer 03/29/2024 1 [place] Jennifer Archer [id number] Jennifer Archer 05/14/2024 2 [employer] ([employer]ICA[employer]) Jennifer Archer [id number] Jennifer Archer 05/14/2024 1 [place] Jennifer Archer [id number] Jennifer Archer 07/09/2024 2 [employer] ([employer]ICAID) Jennifer De La Torreer [id number] Jennifer Russousimakenzie 07/09/2024 1 [place] Jennifer Archer [id number] Jennifer Archer 07/20/2024 2 [employer] (MEDICAID) Jennifer Archer [id number] Jennifer Archer 07/20/2024 1 [place] [place] Jennifer Archer [id number] Jennifer Archer Notes Date Note Type Note Provider Name and Address Organization Details Recorded Time 01/28/2024 text/html HPI Notes: Pt, 7 3-F, here for f/u after brain imaging revealed an there is also a singular tiny focus of restricted diffusion in the left periventricular white matter consistent with acute lacunar infarct, nonhemorrhagic. from 01/19/2024. Donna her jordan man, reports that her balance is not too [...] improved w/Ventolin. MARIAM FANG [address], [place], [address], [facility]. 01/28/2024 18:42:01 03/29/2024 text/html HPI [...] emphysema present. No malignancy. MAR[address], [place], [address], [facility]. 03/29/2024 12:38:37 05/14/2024 text/html HPI Notes: [...] clear at this time. [address], [place], [address], [facility]. 05/15/2024 13:54:05 07/09/2024 text/html HPI Notes: Pt, [age]-F, here for MARIAH after d/c from [facility] 06/17/2024 for Subacute right occipital CVA, hypertension. [...] noticed. Low diastolic pressure today. MARIAM F[address], [place], [address], [facility] 07/09/2024 11:48:31 07/20/2024 text/html HPI Notes: Pt. 7 4-F, w/dementia, here for transition of care follow up from 07/19/2024 [facility] where she was hospitalized for acute UTI, new acute [facility] neuro-vascular had recommended medical management. The patient [...] her home health services. [address], [place], [address], [facility] 07/20/2024 09:53:21 OBGyn Episode No OBEpisode recorded.
--- OUTSIDE RECORDS SUMMARY | 2024-07-27 16:27 | XMS_ITS | Continuity of Care Document ---
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 For Annual in September: Consider DEXA/risk factors of former smoker: Mammography: Life expectancy < 10 years, especially given recent stroke and advancing dementia, won't recommend future mammograms unless symptomatic. - Advanced Directive not on file [email or web address] Not available 07/09/2024 11:48:19 Plan of Treatment Reminders Order Date Submit Date Provider Last Modified By Organization Details Last Modified Time Details Appointments Annual Wellness Exam 40 2024 02:30P M Eduardo Lainez Not available Not available Not available Lab CBC w/ auto diff 2023 N[place] (Registration ), [address] [place] [address] [place], [address], 07/09/2024 16:14:29 BMP, serum or plasma [facility] (Registration ), [address] [place] [address] [place], [address], 07/16/2024 16:54:56 magnesium , serum or plasma [facility]23 [facility] (Registration ), [address] [place] [address] [place], [address], 07/16/2024 16:55:13 Referral None recorded. Procedures None recorded. Surgeries None recorded. Imaging None recorded. Medication Orders psyllium husk 0.4 gram capsule 2023 [id number], [address], [place], [id number], 07/09/2024 11:47:17 trazodone 50 mg tablet 2023 [facility] #23389, [address], [place], [id number], 07/09/2024 11:47:17 Patient TargetsNo targets recorded. Patient Instructions Encounter Date Encounter Id Patient Instructions Last Modified By Organization Details Last Modified Time 07/09/2024 [id number] Keep the environment dark during the night [...] does not resolve. - Trial of Trazodone [email or web address] Not available 07/09/2024 10:05:30 Reason for Referral None Reported. Results Created Date Observation Date Name Description Value Unit Range Abnormal Flag Note LastModifiedBy Organization Detail LastModifiedTime 06/12/20 24 06/12/2024 x-ray imagi ng repor t Patikatie t Name: Martha Payton Unit #: [id number] Loc: ER Orderi ng Provid er: Lacho Correa M.D. t #: [id number] Status : REG ER Primar y Care Provid er: Yulissa Lainez Date of Exam: 05/24 10/15 Sex: F Admiss ion Date: : 1949 Age: 73 Exam(s ) XR CHEST 2V PA LATERA L EXAM: XR CHEST 2V PA LATERA L CLINIC AL HISTOR Y: ams. TECHNI QUE: 2D digita l imagin g was perfor med. COMPAR AJ: No exams were availa ble for compar [...] you. INTERFACE [facility] [address], [place], [address] 06/12/2024 18:34:32 06/12/20 24 06/12/2024 x-ray imagi ng ofelia t Obdulia t Name: Martha Payton Unit #: [id number] Loc: ER Orderi ng Provid er: Lacho Correa M.D. Accoun t #: [id number] Status : REG ER Primar y [...] error, please notify us immedi ately at [phone] and return the origin al report to us at the addres s above. Thank- you. INTERFACE [facility] [address] [place], [address] 06/12/2024 18:34:33 06/12/20 24 06/12/2024 CT imagi ng repor t Patien t Name: Martha Payton Unit #: [id number] Loc: ER Orderi ng Provid er: Lacho Correa M.D. Accoun t #: [id number] Status : REG ER Primar y [...] error, please notify us immedi michellely at [phone] and return the origin al report to us at the addres s above. Thank- you. INTERFACE [facility] [address], [place], [address] 06/12/2024 18:43:33 06/12/20 24 06/12/2024 vrad ofelia wilde Name: Martha Payton Unit #: [id number] Loc: ER Orderi ng Provid er: Accoun t #: [id number] Status : REG ER Primar y [...] FINDIN GS: ANTERI OR CIRCUL ATION: Right it intern al caroti d artery : Calcif ied plaque with severe stenos is cavern ous right ICA. Right middle cerebr al artery : Modera te to severe stenos is document control clerk ior M3 branch right MCA. No signif icant stenos is remain lien of the right MCA. Right anteri or cerebr al artery : No occlus ion or signif icant stenos is. No aneury sm. Left it intern al caroti d artery : Calcif ied plaque with modera te stenos is cavern ous left ICA. Left middle cerebr al artery : No occlus ion or signif icant stenos is. No aneury sm. Left anteri or cerebr al artery : No occlus ion or signif icant stenos is. No aneury sm. RESTAURANT ASSISTANT IOR CIRCUL ATION: Right verteb ral artery : No occlus ion or signif icant stenos is. No aneury sm. Left verteb ral artery : No occlus ion or signif icant stenos is. No aneury sm. Basila r artery : No occlus ion or signif icant stenos is. No aneury sm. Right document control clerk ior cerebr al artery : No occlus ion or signif icant stenos is. No aneury sm. Left document control clerk ior cerebr al artery : No occlus ion or signif icant stenos is. No aneury sm. HEAD: Brain: Stable right document control clerk ior fronta l and pariet al infarc [...] rkable . IMPRES NATASHA: 1. Stable right document control clerk ior fronta l and pariet al infarc t. 2. 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 3. Calcif ied plaque with modera te stenos is cavern ous left ICA. 4. Modera te to severe stenos is document control clerk ior M3 branch right MCA. ASSESS MENT: [...] No dissec tion or occlus ion. Right it intern al caroti d artery : No stenos is of the extrac ranial segmen t. No dissec tion or occlus ion. Right punch press operator helper al caroti d artery : No occlus ion or stenos is of the origin . Left common caroti d artery : No stenos is. No dissec tion or occlus ion. Left it intern al caroti d artery : No stenos is of the extrac ranial segmen t. No dissec tion or occlus ion. Left punch press operator helper al caroti d artery : No occlus [...] the cervic al segmen t of the it intern al caroti d artery is based on NASCET criter ia. Normal is no stenos is. Mild is less than 50% stenos is. Modera te is 50-69% stenos is. Severe is 70% to 99% stenos is. Total occlus ion is no detect able patent lumen. Dictat ed and Daphnie sanchez d by: Abelardo Nagel MD. Thania barrios:P.Ashley ISST Shelby pina MD Access ion#=[id number] Gin torres By: CC: ------ ------ [...] at the addres s above. Thank- you. [email or web address] [place] [address] [facility] [place], [address] 06/15/2024 15:45:36 06/13/2006/13/2024 vrad repor t Patien t Name: Wilnguyen carnesMarthanguyen Carnes Unit #: [id number] Loc: MS Thania barrios Provid er: Accoun t #: [id number] Status : ADM IN Primar y Care [facility] [...] MD. Orderi ng:Peyton Zhou MD Access ion#=[id number] Ordere d By: CC: ------ ------ ------ ------ ------ ------ ------ ------ ------ ------ ------ ------ ---- Dictat ed By: Report s vrad 09 1028 Transc ribed By: Chelsea Merge 09 This is privil eged, confid ential inform ation intend ed only for the provid er named. Any use or distri bution by any person other than this provid er is strict ly prohib ited. If you receiv e this report in error, please notify us immedi ately at [phone] and return the origin al report to us at the addres s above. Thank- you. [facility] [address] [place], [address] 06/15/2024 15:45:36 06/13/20 24 06/13/2024 CT imagi ng repor t Obdulia t Name: Martha Payton Unit #: [id number] Loc: MS Orderi ng Provid er: Lacho Correa M.D. Accoun t #: [id number] Status : ADM IN Primar y [...] volume :struc tured data in ml COMPAR AJ: CT CT HEAD WO from 2023 FINDIN [...] right side there is calcif ied plaque document control clerk iorly at the caroti d bulb-b ifurca tion level and there is also calcif ied plaque on the medial and document control clerk ior saldaña of the proxim al right ICA. Amount of stenos is at this level is estima liz at approx imatel y 40 percen t in the proxim al right ICA. The right ICA is nicely patent in the upper neck. Left caroti d bulb exhibi ts some calcif ied plaque anteri sherry. There is calcif ied plaque on the document control clerk ior wall the proxim al left ICA. Approx imatel y 30 percen t stenos is at this level. There is also self like plaque at the origin left ICA with more promin ent stenos is at this level, approx imatel y 70 percen t. Left ICA in the upper neck is patent . Purchasing Engineer ior circul ation: Both verteb ral [...] Brain W: Anteri or circul ation: Both it intern al caroti d arteri es are patent in the skull base-c arotid canals . Both intra cavern ous it intern al caroti d arteri es are periph erally calcif ied. There is a signif icant focal stenos is at the juncti on of the intra cavern ous and suprac linoid aspect of the right it intern al caroti d artery with approx [...] or commun icatin g artery . Left document control clerk ior cerebr al artery is patent withou t signif icant stenos is. There is mild-m oderat e narrow ing in the proxim al right middle cerebr al artery . No intral uminal thromb us seen. No aneury sms. No dissec tion flaps. Purchasing Engineer ior circul ation: The basila r artery ascend s in the midlin e. Distal ly it gives off patent right document control clerk ior cerebr al artery althou gh there is a modera te stenos is in the document control clerk ior cerebr al artery a few cm distal to its origin . The left document control clerk ior cerebr al artery is predom inantl y fed by a document control clerk ior commun icatin g artery on the left side of the [employer]. This that There is no eviden ce of aneury sm at the tip of the basila r artery nor elsewh ere in the three affiliated -[employer]-[place] llis. CT BRAIN: Again noted is [...] REPOSI TORY: All CT scans at this [facility] are submit liz to the [facility] al Radiol ogy Data Regist ry (NRDR) Dose Index Regist ry (DIR) with the [place] [facility] [place] of Radiol ogy (ACR). RADIAT ION OPTIMI ZATION : All CT scans at this [facility] use at least one of these dose [...] error, please notify us immedi ately at [phone] and return the origin al report to us at the addres s above. Thank- you. INTERFACE [facility] [address] [place], [address] 06/13/2024 15:50:13 06/13/20 24 06/13/2024 CT imagi ng repor t Patien t Name: Martha Payton Unit #: [id number] Loc: Ordermariola ng Provid er: Sanjana unger,Da vid Accoun t #: [id number] Status : ADM IN Primar [...] you. INTERFACE [facility] [address] [place], [address] 06/13/2024 16:16:16 06/14/20 24 06/14/2024 MRI imagi ng repor t Obdulia wilde Name: Martha Payton Unit #: [id number] Loc: MS Ordermariola ng Provid er: Sanjana unger,Da vid Accoun t #: [id number] Status : ADM IN Primar [...] examin ation is limite d due to patikatie t motion artifa ct. DATA REPOSI TORY: Gin torres By: Jabari Bustamante CC: ------ [...] error, please notify us immedi ately at [phone] and return the origin al report to us at the addres s above. Thank- you. INTERFACE [facility] [address] [place], [address] 06/14/2024 12:37:22 06/14/20 24 06/14/2024 ultra sound imagi ng repor t Patien t Name: Martha Payton Unit #: [id number] Loc: MS Monteiro ng Provid er: Jabari Bustamante Accoun t #: [id number] Status : ADM IN Primar [...] you. INTERFACE [facility] [address], [place], [address] 06/14/2024 15:22:54 07/16/20 24 07/16/2024 CT imagi ng repor t Patien t Name: Martha Payton Unit #: [id number] Loc: ER Orderi ng Provid er: Stephania Hagan t #: [id number] Status : REG ER Primar y [...] error, please notify us immedi ately at [phone] and return the origin al report to us at the addres s above. Thank- you. INTERFACE [facility] [address], [place], [address] 07/16/2024 14:51:01 07/16/2007/16/2024 x-ray imagi ng repor t Patien t Name: Martha Payton Unit #: [id number] Loc: ER Orderi ng Provid er: Stephania Hagan Accoun t #: [id number] Status : REG ER Primar y [...] effusi on. Otherw ise no acute pulmon loman proces s. DATA REPOSI TORY: RADIAT ION [...] the addres s above. Thank- you. INTERFACE [place] [address] [facility] [place], [address] 07/16/2024 14:58:08 07/16/2007/16/2024 CT imagi ng repor t Patikatie t Name: Wilnguyen carnesMartha n Deyvi Unit #: [id number] Loc: ER Orderi ng Provid er: Stephania Hagan Accoun t #: [id number] Status : REG ER Primar y [...] error, please notify us immedi michellely at [phone] and return the origin al report to us at the addres s above. Thank- you. INTERFACE [facility] [address], [place], [address] 07/16/2024 17:29:32 Result Notes None recorded. Problems Name Problem SNOMED Code Status Onset Date Resolution Date Notes Provider Name and Address Organization Details Recorded Time Poor short-term memory 929731847 Active [address], [place], [address] , [facility], [facility] 4 10:28:13 Essential hypertensi on 22966102 Active [address], [place], [address] , [facility] 4 10:29:23 Blood glucose outside reference range 785482215 Active [address], [place], [address], [facility] 4 10:30:43 Iritis 20471104 Active [address], [place], [address], [facility] 4 10:31:43 Tobacco dependence caused by cigarettes 934457705276 06546 Active [address], [place], [address], [facility] 4 12:23:42 Adjustment disorder with depressed mood 60748384 Active [address], [place], [address], [facility] 4 12:26:28 Prediabete s 831005643 Active 2023 5.7% on [address], [place], [address], [facility] 4 07:52:17 History of coronary artery bypass grafting 413788028 Active 2009 In 2010 per prior med recs [address], [place], [address], [facility] 4 14:53:13 Unexplaine d weight loss 542963486 Active [address], [place], [address], [facility] 4 13:43:55 Chronic cough 28334425 Active [address], [place], [address], [facility] 13:44:00 Pain of left shoulder joint 108575169960 63637 Active [address], [place], [address], [facility] 13:44:16 Hyperlipid emia 76514882 Active [address], [place], [address], [facility] 13:48:11 Chronic obstructiv e pulmonary disease 43880664 Active [address], [place], [address], [facility] 13:49:36 Lacunar infarction 697888722 Active [address], [place], [address], [facility] 18:17:27 Bradycardi a 56000871 Active [address], [place], [address], [facility] 18:36:12 Chronic kidney disease stage 3B 275597153 Active 2023 NOted in 1 Note in prior MR as stage 3 D/T HTN. Plan to control BP as care plan. [address], [place], [address], [facility] 05:24:31 Pulmonary emphysema 07144082 Active [address], [place], [address], [facility] 12:31:17 Leukocytos is 607647711 Active [address], [place], [address], [facility] 20:10:17 Pyuria 1703103 Active [address], [place], [address], [facility] 20:12:07 Agitation due to dementia 158960927 Active [address], [place], [address], [facility] 16:19:39 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 058248960 Active [address], [place], [address], [facility] 08:09:53 Hypokalemi a 96394476 Active [address], [place], [address], [facility] 08:10:59 Sundowning 856474430 Active [address], [place], [address], [facility] 08:12:54 Loose stool 586024018 Active [address], [place], [address], [facility] 09:45:26 Unsteady when walking 75607484 Active [address], [place], [address], [facility] 4 10:02:59 Decreased diastolic arterial pressure 66761552 Active [address], [facility] [address], [facility] 4 10:04:18 Acute gastrointe stinal hemorrhage 23631524 Active [address], [facility] [address], [facility] 06:49:56 Cerebral infarction 614194594 Active [address], [facility] [address], [facility] 06:50:08 Acute urinary tract infection 020979702 Active [address], [facility] [address], [facility] 06:52:30 Hypernatre sanaz 707312015 Active [address], [place], [address], [facility] 06:55:39 Problem Notes None recorded. Medical Equipment None Reported. Allergies Allergen ID Allergen Name Allergen Category Reaction Reaction Severity Criticality Documentation Date Start Date Code Code System Note Provider Name and Address Organization Details Recorded Time 98244 chlorthal idone medicatio n Not available Not available high 01/28/[address], [place], [address] , [facility] 17:56:24 85240 hydrochlo rothiazid e medicatio n Not available Not available high 01/28/[address], [place], [address] [place] [address] - [facility]. 17:56:38 Medications Name Sig Start Date Stop Date Status Note LastModified by Organization Details LastModified Time losartan 50 mg tablet Take 1 tablet twice a day by oral route as directed . 2023 active Per [facility] [employer] EMR Not Available Not Available Not Available quetiapin e 25 mg tablet 1 tablet by mouth each night 2023 active Not Available Not Available Not Avai lable atorvasta tin 80 mg tablet Take 1 tablet every day by oral route at bedtime. 2023 active updated from [email or web address] EMR Not Available Not Available Not Available [...] route as directed . 2023 [facility] Not Available Not Available Not Available sucralfat e 1 gram tablet 1 tab by mouth before meals and at night active Started by [facility] in setting of GI bleed 07/19/20 24 D/C. Not Available Not Available Not Available [...] as directed . 2023 active Updated from [email or web address] EMR Not Available Not Available Not Available aspirin 81 mg tablet,de layed release Take 1 tablet every day by oral route. 07/20 completed Pt, with acute hemorrag e and GI bleed at 07/13/20 24 [facility] hospital in setting of taking aspirin. Aspirin held at this time pending GI consult. Not Available Not Available Not Available pantopraz ole 40 mg tablet,de layed release Take 1 tablet every day by oral route. active started by [facility] in setting of GI bleed 07/19/20 24 [...] route as directed . 2023 active Per [facility] EMR Not Available Not Available Not [...] trialed by patient son and daughter in-law madeleine Sexton edibles only at this time. Not Available Not Available Not Available Vitals Date Recorded Body height Body mass index (BMI) Body weight Body temperature Oxygen saturation Oxygen saturation in Arterial blood by Pulse oximetry Respiratory rate Heart rate Systolic blood pressure Diastolic blood pressure Provider Name and Address Organization Details Last Updated DateTime 4 147.32 cm 19.9 kg/m2 29946.9 9 g 98.6 [degF] 100 % 100 % 14 /min 70 /min 108 mm[Hg] 48 mm[Hg] SUKHDEV TORIBIO RN [facility] 4 09:38:14 Social History Question Answer Notes LastModified by Organizat ion Details LastModified Time Tobacco Smoking Status Current Every Day Smoker [place], [facility] 11/01/2023 11:33:08 Would You Say That, [...] Much Tobacco Do You Smoke? 0.5 PPD Information not available 05/14/2024 Has Tobacco Cessation [...] trivalent, PF 07/09/[address], [place], [address], [facility] 07/09/2024 11:46:08 COVID-19, mRNA, LNP-S, PF, angie-sucrose, 30 mcg/0.3 mL 07/09/2024 completed [address], [facility] [address], [facility] 07/09/2024 11:46:08 Tdap 07/09/2024 completed [address], [facility] [address], [facility] 07/09/2024 11:46:08 Past Encounters Encounter ID Performer Location Encounter Start Date Encounter Closed Date Diagnosis/Indication Diagnosis SNOMED-CT Code Diagnosis ICD10 Code [id number] MARIAM FANG [facility] [address] [place] [address] 07/09/2024 09:29:21 07/09/2024 10:24:04 Right sided cerebral hemisphere cerebrovascular accident 764890186 I63.9 Hypokalemia 80924991 E87 .6 Essential hypertension 01598003 I10 Sundowning 025837631 F05 Loose stool 473273349 R1 9.5 Unsteady when walking 22 110372 R26.89 Decreased diastolic arterial pressure 64026510 R03.1 Active or passive immunization 425572555 Z23 Health Concerns Section Related Observation LastModified by Organization Detai ls LastModified Time None Recorded Concern Status LastModified by Organization Details LastModified Time None Recorded Payers Encounter Date Sequence Insurance Name Policy Number Policy Nicole Covered Member ID Nicole Member ID Guarantor Name 07/09/2024 2 [facility] (MEDICAID) Jennifer Archer [id number] Jennifer Archer 07/09/2024 1 [place] [employer] Jennifer Archer [id number] Jennifer Archer Notes Date Note Type Note Provider Name and Address Organization Details Recorded Time 07/09/2024 text/html HPI Notes: Pt, [age]-F, here for MARIAH after d/c from [facility] 06/17/2024 for Subacute right occipital CVA, [...] pressure today. MARIAM FANG [address], [place], [address], [facility]. 07/09/2024 11:48:31 OBGyn Episode No OBEpisode recorded.
--- OUTSIDE RECORDS SUMMARY | 2024-07-27 16:27 | XMS_ITS | Continuity of Care Document ---
Author Organization [place] - [facility], [facility], [facility] Address [address] [place] [address] [address] [place] [address] Assessment No assessment recorded. Plan of Treatment Reminders Order Date Submit Date Provider Last Modified By Organization Details Last Modified Time Details Appointments Annual Wellness Exam 40 2024 02:30P M Eduardo Lainez Not available Not available Not available Lab culture, urine + sensitivi ty 2023 024 [facility] (Registration ), [address] [place] [address] [place], [address], 05/17/2024 08:14:58 microscop ic method, urine 2023 024 [facility] (Registration ), [address] [place] [address] [place], [address], 05/15/2024 08:48:21 urinalysi s, dipstick 2023 024 [email or web address] [facility], [address] [place] [address], [address], [place], [address], 05/14/2024 20:40:44 Referral None recorded. Procedures None recorded. Surgeries None recorded. Imaging None recorded. Medication Orders cefuroxim e axetil 250 mg tablet 2023 024 [email or web address], [address] [place], [address], 07/01/2024 11:35:09 cefuroxim e axetil 250 mg tablet 2023 024 [email or web address] Not available 07/01/2024 11:35:09 Patient TargetsNo targets recorded. Patient Instructions Encounter Date Encounter Id Patient Instructions Last Modified By Organization Details Last Modified Time 05/14/2024 [id number] 1. I am concerne d that her symptoms may be related to a urinary tract infection thus I have gone ahead and given her her first tablet of antibiotic tonight and the remaining doses were sent to the [facility] [place]. She will take this medication morning and [...] , dipst ick Leukocytes Trace Not Available [address] [address], [place], [address], 05/14/2024 20:24:45 05/14/20 24 05/14/2024 urina lysis , dipst ick Nitrite negati ve Not Available [address] [address], [place], [address], 05/14/2024 20:24:45 05/14/20 24 05/14/2024 urina lysis , dipst ick Urobilinogen .2 Not Available [address] [address], [place], [address], 05/14/2024 20:24:45 05/14/20 24 05/14/2024 urina lysis , dipst ick Protein 100 Not Available [address] [address], [place], [address], 05/14/2024 20:24:45 05/14/20 24 05/14/2024 urina lysis , dipst ick pH 5.0 Not Available [address], [place], [address], 05/14/2024 20:24:45 05/14/20 24 05/14/2024 urina lysis , dipst ick Blood Negati ve Not Available [address], [place], [address], 05/14/2024 20:24:45 05/14/20 24 05/14/2024 urina lysis , dipst ick Specific [place] 1.015 Not Available [address], [place], [address], 05/14/2024 20:24:45 05/14/20 24 05/14/2024 urina lysis , dipst ick Ketone Trace Not Available [address], [place], [address], 05/14/2024 20:24:45 05/14/20 24 05/14/2024 urina lysis , dipst ick Bilirubin Small Not Available [address], [place], [address], 05/14/2024 20:24:45 05/14/20 24 05/14/2024 urina lysis , dipst ick Glucose Negati ve Not Available [address], [place], [address], 05/14/2024 20:24:45 05/14/20 24 05/14/2024 urina lysis , dipst ick Appearance Clear Not Available [address], [place], [address], 05/14/2024 20:24:45 05/14/20 24 05/14/2024 urina lysis , dipst ick Color Dark Yellow Not Available [facility] [address] [facility], [place], [address], 05/14/2024 20:24:45 06/12/20 24 06/12/2024 x-ray imagi ng ofelia t Patikatie t Name: Martha Payton Unit #: [id number] Loc: ER Thania Meraz er: Lacho Correa M.D. Accoun t #: [id number] Status : REG ER Primar y [...] the addres s above. Thank- you. INTERFACE [facility] [address], [place], [address] 06/12/2024 18:34:32 06/12/20 24 06/12/2024 x-ray imagi ng repor t Patikatie t Name: Martha Payton Unit #: [id number] Loc: ER Orderi ng Provid er: Lacho Correa M.D. Accoun t #: [id number] Status : REG ER Primar y [...] the addres s above. Thank- you. INTERFACE [facility] [address], [place], [address] 06/12/2024 18:34:33 06/12/20 24 06/12/2024 CT imagi ng repor t Patikatie t Name: Martha Payton Unit #: [id number] Loc: ER Orderi ng Provid er: Lacho Correa M.D. Accoun t #: [id number] Status : REG ER Primar y [...] REPOSI TORY: [facility] are submit liz to the Nation [...] error, please notify us immedi ately at [phone] and return the origin al report to us at the addres s above. Thank- you. INTERFACE [facility] [address] [place], [address] 06/12/2024 18:43:33 06/12/20 24 06/12/2024 vrad repor t Patien t Name: Martha Payton Unit #: [id number] Loc: ER Orderi ng Provid er: Accoun t #: [id number] Status : REG ER Primar y [...] FINDIN GS: ANTERI OR CIRCUL ATION: Right legal intern al caroti d artery : Calcif ied plaque with severe stenos is cavern ous right ICA. Right middle cerebr al artery : Modera te to severe stenos is planetarium technician ior M3 branch right MCA. No signif icant stenos is remain lien of the right MCA. Right anteri or cerebr al artery : No occlus ion or signif icant stenos is. No aneury sm. Left legal intern al caroti d artery : Calcif ied plaque with modera te stenos is cavern ous left ICA. Left middle cerebr al artery : No occlus ion or signif icant stenos is. No aneury sm. Left anteri or cerebr al artery : No occlus ion or signif icant stenos is. No aneury sm. INSTRUMENT PANEL ASSEMBLER IOR CIRCUL ATION: Right verteb ral artery : No occlus ion or signif icant stenos is. No aneury sm. Left verteb ral artery : No occlus ion or signif icant stenos is. No aneury sm. Basila r artery : No occlus ion or signif icant stenos is. No aneury sm. Right planetarium technician ior cerebr al artery : No occlus ion or signif icant stenos is. No aneury sm. Left planetarium technician ior cerebr al artery : No occlus ion or signif icant stenos is. No aneury sm. HEAD: Brain: Stable right planetarium technician ior fronta l and pariet al infarc [...] rkable . IMPRES NATASHA: 1. Stable right planetarium technician ior fronta l and pariet al infarc t. 2. 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 3. Calcif ied plaque with modera te stenos is cavern ous left ICA. 4. Modera te to severe stenos is planetarium technician ior M3 branch right MCA. ASSESS MENT: [...] No dissec tion or occlus ion. Right legal intern al caroti d artery : No stenos is of the extrac ranial segmen t. No dissec tion or occlus ion. Right grain drier al caroti d artery : No occlus ion or stenos is of the origin . Left common caroti d artery : No stenos is. No dissec tion or occlus ion. Left legal intern al caroti d artery : No stenos is of the extrac ranial segmen t. No dissec tion or occlus ion. Left grain drier al caroti d artery : No occlus [...] the cervic al segmen t of the legal intern al caroti d artery is based on NASCET criter ia. Normal is no stenos is. Mild is less than 50% stenos is. Modera te is 50-69% stenos is. Severe is 70% to 99% stenos is. Total occlus ion is no detect able patent lumen. Dictat ed and Authen ticate d by: Abelardo Nagel MD. Orderi ng:P.D ISST Shelby pina MD Access ion#=[id number] Ordere d By: CC: ------ ------ [...] at the addres s above. Thank- you. [email or web address] [facility] [address], [place], [address] 06/15/2024 15:45:36 06/13/20 24 06/13/2024 vrad repor t Patikatie t Name: Martha Payton Unit #: [id number] Loc: MS Thania barrios Provid er: Accoun t #: [id number] Status : ADM IN Primar y [...] ticate d by: Sofy Cordero MD. Orderi ng:ePyton Zhou MD Access ion#=[id number] Ordere d By: CC: ------ ------ [...] error, please notify us immedi michellely at [phone] and return the origin al report to us at the addres s above. Thank- you. [email or web address] [facility] [address] [facility] [place], [address] 06/15/2024 15:45:36 06/13/20 24 06/13/2024 CT imagi ng repor t Patikatie t Name: Martha Payton Unit #: [id number] Loc: MS Thania barrios Provid er: Lacho Correa M.D. Accoun t #: [id number] Status : ADM IN Primar y [...] right side there is calcif ied plaque planetarium technician iorly at the caroti d bulb-b ifurca tion level and there is also calcif ied plaque on the medial and planetarium technician ior saldaña of the proxim al right ICA. Amount of stenos is at this level is estima liz at approx imatel y 40 percen t in the proxim al right ICA. The right ICA is nicely patent in the upper neck. Left caroti d bulb exhibi ts some calcif ied plaque anteri sherry. There is calcif ied plaque on the planetarium technician ior wall the proxim al left ICA. Approx imatel y 30 percen t stenos is at this level. There is also self like plaque at the origin left ICA with more promin ent stenos is at this level, approx imatel y 70 percen t. Left ICA in the upper neck is patent . Oceanographic Meteorologist ior circul ation: Both verteb ral arteri [...] Brain W: Anteri or circul ation: Both legal intern al caroti d arteri es are patent in the skull base-c arotid canals . Both intra cavern ous legal intern al caroti d arteri es are periph erally calcif ied. There is a signif icant focal stenos is at the juncti on of the intra cavern ous and suprac linoid aspect of the right legal intern al caroti d artery with approx [...] or commun icatin g artery . Left planetarium technician ior cerebr al artery is patent withou t signif icant stenos is. There is mild-m oderat e narrow ing in the proxim al right middle cerebr al artery . No intral uminal thromb us seen. No aneury sms. No dissec tion flaps. Oceanographic Meteorologist ior circul ation: The basila r artery ascend s in the midlin e. Distal ly it gives off patent right planetarium technician ior cerebr al artery althou gh there is a modera te stenos is in the planetarium technician ior cerebr al artery a few cm distal to its origin . The left planetarium technician ior cerebr al artery is predom inantl y fed by a planetarium technician ior commun icatin g artery on the left side of the [place]. This that There is no eviden ce of aneury sm at the tip of the basila r artery nor elsewh ere in the [place] BRAIN: Again noted is [...] facili ty are submit liz to the [facility] al Radiol ogy Data Regist ry (NRDR) Dose Index Regist ry (DIR) with the [place] Radiol ogy (ACR). RADIAT ION OPTIMI ZATION : [facility] use at least one of these [...] the addres s above. Thank- you. INTERFACE [facility] [address], [place], [address] 06/13/2024 15:50:13 06/13/20 24 06/13/2024 CT imagi ng repor t Patien t Name: Martha Payton Unit #: [id number] Loc: Ordermariola ng Provid er: Jabari Bustamante Accoun t #: [id number] Status : ADM IN Primar [...] the addres s above. Thank- you. INTERFACE [facility] [address], [place], [address] 06/13/2024 16:16:16 06/14/20 24 06/14/2024 MRI imagi ng repor t Patien t Name: Martha Payton Unit #: [id number] Loc: MS Orderi ng Provid er: Jabari Bustamante Accoun t #: [id number] Status : ADM IN Primar [...] error, please notify us immedi ately at [phone] and return the origin al report to us at the addres s above. Thank- you. INTERFACE [address] [place] [address], [place], [address] 06/14/2024 12:37:22 06/14/20 24 06/14/2024 ultra sound imagi ng repor t Obdulia wilde Name: Martha Payton Unit #: [id number] Loc: Ordermariola ng Provid er: Jabari Bustamante Accoun t #: [id number] Status : ADM IN [facility] er: Yulissa Lainez Date of Exam: [...] error, please notify us immedi ately at [phone] and return the origin al report to us at the addres s above. Thank- you. INTERFACE [place] [address], [place], [address] 06/14/2024 15:22:54 07/16/20 24 07/16/2024 CT imagi ng repor t Obdulia wilde Name: Martha Payton Unit #: [id number] Loc: ER Orderi ng Provid er: Stephania Hagan t #: [id number] Status : REG ER Primar y [...] REPOSI TORY: [facility] are submit liz to the [facility] al Radiol ogy Data Regist ry (NRDR) Dose Index Regist ry (DIR) with the [place] Radiol ogy (ACR). RADIAT ION OPTIMI ZATION : [facility] use at least one of these [...] the addres s above. Thank- you. INTERFACE [facility] [address], [place], [address] 07/16/2024 14:51:01 07/16/2007/16/2024 x-ray imagi ng repor t Obdulia t Name: Martha Payton Unit #: [id number] Loc: ER Orderi ng Provid er: Stephania Hagan Accisael t #: [id number] Status : REG ER Primar y [...] the addres s above. Thank- you. INTERFACE [facility] [address], [place], [address] 07/16/2024 14:58:08 07/16/2007/16/2024 CT imagi ng repor t Obdulia wilde Name: Martha Payton Unit #: [id number] Loc: ER Orderi ng Provid er: Stephania Hagan Accoun t #: [id number] Status : REG ER Primar y [...] compar ed [facility]. RADIAT ION DOSE DELIVE RED: 819.49 mGy.cm Total DLP DATA REPOSI TORY: All CT scans at this facili ty are submit liz to the [facility] al Radiol ogy Data Regist ry (NRDR) Dose Index Regist ry (DIR) with the [place] of Radiol ogy (ACR). RADIAT ION OPTIMI ZATION : [facility] use at least one of these [...] the addres s above. Thank- you. INTERFACE [facility] [address], [place], [address] 07/16/2024 17:29:32 Result Notes None recorded. Problems Name Problem SNOMED Code Status Onset Date Resolution Date Notes Provider Name and Address Organization Details Recorded Time Poor short-term memory 586345858 Active [address], [place], [address], [facility] 4 10:28:13 Essential hypertensi on 40539101 Active [address], [place], [address], [facility] 4 10:29:23 Blood glucose outside reference range 265945891 Active [address], [place], [address], [facility] 4 10:30:43 Iritis 25459583 Active [address], [place], [address], [facility] 4 10:31:43 Tobacco dependence caused by cigarettes 536729125984 16462 Active [address], [place], [address], [facility] 4 12:23:42 Adjustment disorder with depressed mood 70822643 Active [address], [place], [address], [facility] 12:26:28 Prediabete s 026792245 Active 2023 5.7% on [address], [place], [address], [facility] 07:52:17 History of coronary artery bypass grafting 724897061 Active 2009 In 2010 per prior med recs [address], [place], [address], [facility] 14:53:13 Unexplaine d weight loss 729693792 Active [address], [place], [address], [facility] 13:43:55 Chronic cough 93116294 Active [address], [place], [address], [facility] 13:44:00 Pain of left shoulder joint 841369396522 45061 Active [address], [place], [address], [facility] 13:44:16 Hyperlipid emia 46469014 Active [address], [place], [address], [facility] 13:48:11 Chronic obstructiv e pulmonary disease 93218640 Active [address], [place], [address], [facility] 4 13:49:36 Lacunar infarction 338793782 Active [address], [place], [address], [facility] 4 18:17:27 Bradycardi a 00968928 Active [address], [place], [address], [facility] 4 18:36:12 Chronic kidney disease stage 3B 235212573 Active 2023 NOted in 1 Note in prior MR as stage 3 D/T HTN. Plan to control BP as care plan. 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 151010723 Active [address], [place], [address], [facility] 08:09:53 Hypokalemi a 65477653 Active [address], [place], [address], [facility] 08:10:59 Sundowning 021331685 Active [address], [place], [address], [facility] 08:12:54 Loose stool 926118621 Active [address], [place], [address], [facility] 09:45:26 Unsteady when walking 57275612 Active [address], [place], [address], [facility] 10:02:59 Decreased diastolic arterial pressure 04372909 Active [address], [place], [address], [facility] 10:04:18 Acute gastrointe stinal hemorrhage 08307692 Active [address], [place], [address], [facility] 06:49:56 Cerebral infarction 275455422 Active [address], [facility] [address] , [facility] 4 06:50:08 Acute urinary tract infection 183918476 Active 2023 [address], [facility] [address] , [facility] 4 06:52:30 Hypernatre sanaz 002845440 Active [address], [facility] [address] , [facility] 4 06:55:39 Problem Notes None recorded. Medical Equipment None Reported. Allergies Allergen ID Allergen Name Allergen Category Reaction Reaction Severity Criticality Documentation Date Start Date Code Code System Note Provider Name and Address Organization Details Recorded Time 74801 chlorthal idone medicatio n Not available Not available [facility] 01/28/[address], [facility] [address] , [facility] 4 17:56:24 36840 hydrochlo rothiazid e medicatio n Not available Not available high 01/28/[address], [place], [address] [place] [address] 4 17:56:38 Medications Name Sig Start Date Stop Date Status Note LastModified by Organization Details LastModified Time losartan 50 mg tablet Take 1 tablet twice a day by oral route as directed . 2023 active Per [facility] [facility] EMR Not Available Not Available Not Available quetiapin e 25 mg tablet 1 tablet by mouth each night 2023 active Not Available Not Available Not Avai lable atorvasta tin 80 mg tablet Take 1 tablet every day by oral route at bedtime. 2023 active updated from [place] [facility] Not Available Not Available Not Available [...] route as directed . 2023 active per [place] [facility] Not Available Not Available Not Available sucralfat e 1 gram tablet 1 tab by mouth before meals and at night active Started by [facility] in setting of GI bleed 07/19/20 D/C. [...] as directed . 2023 active Updated from [place] [facility] Not Available Not Available Not Available aspirin 81 mg tablet,de layed release Take 1 tablet every day by oral route. 07/20 completed Pt, with acute hemorrag e and GI bleed at 07/13/20 [facility] hospital in setting of taking aspirin. Aspirin held at this time pending GI consult. Not Available Not Available Not Available pantopraz ole 40 mg tablet,de layed release Take 1 tablet every day by oral route. active started by [facility] in setting of GI bleed 07/19/20 d/c [...] route as directed . 2023 active Per [facility] Not Available Not Available Not Available [...] Last Updated DateTime 147.32 cm 20.5 kg/m2 85987.4 5 g 98.1 [degF] 99 % 99 % 62 /min 18 /min 195 mm[Hg] 63 mm[Hg] 211 mm[Hg] 102 mm[Hg] 210 mm[Hg] 75 mm[Hg] 199 mm[Hg] 66 mm[Hg] Keesha Zaragoza [place] [facility] 21:02:19 Social History Question Answer Notes LastModified by Organizat ion Details LastModified Time Tobacco Smoking Status Current Every Day Smoker [place], [facility] 11/01/2023 11:33:08 Would You Say [...] Of Your Most Recent Tobacco Screening? 05/14/2024 [email or web address] Information n ot available 05/14/2024 How Much Tobacco Do You Smoke? 0.5 PPD [email or web address] Information not available 05/14/2024 Has Tobacco Cessation [...] trivalent, PF 07/09/[address], [place], [address], [facility] 07/09/2024 11:46:08 COVID-19, mRNA, LNP-S, PF, angie-sucrose, 30 mcg/0.3 mL 07/09/[address], [place], [address], [facility] 07/09/2024 11:46:08 Tdap 07/09/[address], [facility] [address], [facility]. 07/09/2024 11:46:08 Past Encounters Encounter ID Performer Location Encounter Start Date Encounter Closed Date Diagnosis/Indication Diagnosis SNOMED-CT Code Diagnosis ICD10 Code [id number] ISATU ZAMORA PA-C [address] [place] [address] 05/14/2024 18:33:21 05/14/2024 21:16:51 Pyuria 9829028 R82.81 Health Concerns Section Related Observation LastModified by Organization Detai ls LastModified Time None Recorded Concern Status LastModified by Organization Details LastModified Time None Recorded Payers Encounter Date Sequence Insurance Name Policy Number Policy Nicole Covered Member ID Nicole Member ID Guarantor Name 05/14/2024 2 [facility] (MEDICAID) Jennifer Archer [id number] Jennifer Archer 05/14/2024 1 [place] [employer] Jennifer Archer [id number] Jennifer Archer Notes Date Note Type [...] clear at this time. [address], [place], [address], [facility]. 05/15/2024 13:54:05 OBGyn Episode No OBEpisode recorded.
--- OUTSIDE RECORDS SUMMARY | 2024-07-27 16:27 | XMS_ITS | Continuity of Care Document ---
Author Organization [place] - [facility], [facility] [place] [address] Assessment Encounter Date Assessment Date Assessment LastModified by Organization Details LastModified Time 07/20/2024 07/20/2024 Care mgmt note 07/19/2024 states,Discharge home with resumption of full [facility] services and Community/[facility] er supports. Follow up with PCP and discharge plan of care as recommended. Donna will provide transportation. Patient/Family Education Needs: Review discharge instructions, limitations, medications and plan to follow up with community providers. Discuss ask me three. Services Needed at Discharge: Home Health Care Services (Resume [facility] RN, PT, OT, DEAF INTERPRETER) and Homemaking Services (Provided by [facility]) Donna reports she has to call to resume services. General surgery appt. w/Dr. Yonug 08/02/2024: - Has Neuro appt. w/Dr. Mondragon [...] Lab CBC w/ auto diff 2023 024 [facility] (Registration ), [address] [place], [address], 07/20/2024 16:04:47 BMP, serum or plasma 2023 024 [facility], [address], [place], [address], 07/21/2024 08:27:59 magnesium , serum or plasma 2023 024 [email or web address] (Registration ), [address] , [place], [address], 07/27/2024 09:31:07 Referral None recorded. Procedures None recorded. Surgeries None recorded. Imaging None recorded. Medication Orders Lactobaci llus acidophil us 1 billion cell tablet 2023 [id number], [address], [place], [id number], 07/20/2024 09:06:11 Patient TargetsNo targets recorded. Patient Instructions Encounter Date Encounter Id Patient Instructions Last Modified By Organization Details Last Modified Time 07/20/2024 [id number] Continue to hold aspirin. Not available 07/20/2024 09:14:21 Reason for Referral None Reported. Results Created Date Observation Date Name Description Value Unit Range Abnormal Flag Note LastModifiedBy Organization Detail LastModifiedTime 07/16/2007/16/2024 CT imagi ng repor t Obdulia wilde Name: Martha Payton Unit #: [id number] Loc: ER Orderi ng Provid er: ar Stephania Cuevas t #: [id number] Status : REG ER Primar y [...] gs were discus sed with Alliso n Ebmagali mi-Gol d at 2:45 p.m. on 2023. [...] you. INTERFACE [facility] [address], [place], [address] 07/16/2024 14:51:01 07/16/2007/16/2024 x-ray imagi ng repor t Obdulia t Name: Martha Payton Unit #: [id number] Loc: ER Orderi ng Provid er: Stephania Hagan Accoun t #: [id number] Status : REG ER Primar y [...] error, please notify us immedi ately at [phone] and return the origin al report to us at the addres s above. Thank- you. INTERFACE [place] [id number], [place], [address] 07/16/2024 14:58:08 07/16/2007/16/2024 CT imagi ng repor t Patien t Name: Martha Payton Unit #: [id number] Loc: ER Orderi ng Provid er: Stephania Hagan Accoun t #: [id number] Status : REG ER Primar y Care Provid er: FatouYulissa banegas hanh Date of Exam: 06/23 02/12 Sex: [...] Regist ry (DIR) with the [place] [employer]iol ogy (ACR). RADIAT ION [...] you. INTERFACE [facility] [address] , [place], [address] 07/16/2024 17:29:32 Result Notes None recorded. Problems Name Problem SNOMED Code Status Onset Date Resolution Date Notes Provider Name and Address Organization Details Recorded Time Poor short-term memory 944346767 Active [address], [place], [address] , [facility] 4 10:28:13 Essential hypertensi on 75021891 Active [address], [place], [address] , [facility] 4 10:29:23 Blood glucose outside reference range 666502923 Active [address], [place], [address] , [facility] 4 10:30:43 Iritis 91752693 Active [address], [place], [address], [facility] 4 10:31:43 Tobacco dependence caused by cigarettes 967346759367 10802 Active [address], [place], [address], [facility] 4 12:23:42 Adjustment disorder with depressed mood 71598335 Active [address], [place], [address], [facility] 4 12:26:28 Prediabete s 141997391 Active 2023 5.7% on [address], [place], [address], [facility] 4 07:52:17 History of coronary artery bypass grafting 245055199 Active 2009 In 2009 per prior med recs [address], [place], [address], [facility] 4 14:53:13 Unexplaine d weight loss 715399340 Active [address], [place], [address], [facility] 4 13:43:55 Chronic cough 83432653 Active [address], [place], [address], [facility] 13:44:00 Pain of left shoulder joint 716236062312 60629 Active [address], [place], [address], [facility] 05/08/202 4 13:44:16 Hyperlipid emia 44054536 Active [address], [place], [address], [facility] 13:48:11 Chronic obstructiv e pulmonary disease 61651906 Active [address], [place], [address], [facility] 13:49:36 Lacunar infarction 297931452 Active [address], [place], [address], [facility] 18:17:27 Bradycardi a 98270798 Active [address], [place], [address], [facility] 18:36:12 Chronic kidney disease stage 3B 362901702 Active 2023 NOted in 1 Note in prior MR as stage 3 D/T HTN. Plan to control BP as care plan. 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 086556766 Active [address], [place], [address], [facility] 08:09:53 Hypokalemi a 82070406 Active 2023 [address], [place], [address], [facility] 08:10:59 Sundowning 076596121 Active [address], [place], [address], [facility] 08:12:54 Loose stool 886211980 Active [address], [place], [address], [facility] 09:45:26 Unsteady when walking 24747225 Active [address], [place], [address], [facility] 10:02:59 Decreased diastolic arterial pressure 61189083 Active [address], [place], [address], [facility] 4 10:04:18 Acute gastrointe stinal hemorrhage 16437408 Active [address], [facility] [address], [facility] 06:49:56 Cerebral infarction 070358617 Active [address], [facility] [address], [facility] 06:50:08 Acute urinary tract infection 294426922 Active [address], [facility] [address] , [facility] 06:52:30 Hypernatre sanaz 229142708 Active [address], [facility] [address], [facility] 06:55:39 Problem Notes None recorded. Medical Equipment None Reported. Allergies Allergen ID Allergen Name Allergen Category Reaction Reaction Severity Criticality Documentation Date Start Date Code Code System Note Provider Name and Address Organization Details Recorded Time 54911 chlorthal idone medicatio n Not available Not available [facility] 01/28/[address], [facility] [address], [facility] 17:56:24 73298 hydrochlo rothiazid e medicatio n Not available Not available [facility] 01/28/[address], [facility] [address] , [facility] 17:56:38 Medications Name Sig Start Date Stop Date Status Note LastModified by Organization Details LastModified Time losartan 50 mg tablet Take 1 tablet twice a day by oral route as directed . 2023 active Per [facility] EMR Not Available Not Available Not Available quetiapin e 25 mg tablet 1 tablet by mouth each night 2023 active Not Available Not Available Not Avai lable atorvasta tin 80 mg tablet Take 1 tablet every day by oral route at bedtime. 2023 active updated from [facility] EMR Not Available Not Available Not [...] route as directed . 2023 [facility] Not Available Not Available Not Available sucralfat e 1 gram tablet 1 tab by mouth before meals and at night active Started by [facility] in setting of GI bleed 07/19/20 D/C. [...] as directed . 2023 [facility] Not Available Not Available Not Available aspirin 81 mg tablet,de layed release Take 1 tablet every day by oral route. 07/20 completed Pt, with acute hemorrag e and GI bleed at 07/13/20 24 [facility] hospital in setting of taking aspirin. Aspirin held at this time pending GI consult. Not Available Not Available Not Available pantopraz ole 40 mg tablet,de layed release Take 1 tablet every day by oral route. active started by [facility] in setting of GI bleed 07/19/20 24 [...] route as directed . 2023 active Per [facility] EMR Not Available Not Available Not Available [...] Last Updated DateTime 147.32 cm 20.4 kg/m2 71582.9 g 97.5 [degF] 97 % 97 % 52 /min 108 mm[Hg] 58 mm[Hg] DEEDEE PITTMAN MA [facility] 08:35:30 Social History Question Answer Notes LastModified by Organizat ion Details LastModified Time Tobacco Smoking Status Current Every Day Smoker Kylah Almonte MA null, [facility] 11/01/2023 11:33:08 Would You Say [...] Of Your Most Recent Tobacco Screening? 05/14/2024 [email or web address] Information n ot available 05/14/2024 How Much Tobacco Do You Smoke? 0.5 PPD [email or web address] Information not available 05/14/2024 Has Tobacco Cessation Counseling Been Provided? Yes Information not available 11/01/2023 On What Date Was Tobacco Cessation Counseling Provided? 05/14/2024 [email or web address] Information not available 05/14/2024 Do You Or [...] trivalent, PF 07/09/[address], [place], [address], [facility] 07/09/2024 11:46:08 COVID-19, mRNA, LNP-S, PF, angie-sucrose, 30 mcg/0.3 mL 07/09/[address], [place], [address], [facility] 07/09/2024 11:46:08 Tdap 07/09/2024 completed [address], [place], [address], [facility] 07/09/2024 11:46:08 Past Encounters Encounter ID Performer Location Encounter Start Date Encounter Closed Date Diagnosis/Indication Diagnosis SNOMED-CT Code Diagnosis ICD10 Code [id number] MAR[address] [facility] [address] [place] [address] 07/09/2024 09:29:21 07/09/2024 10:24:04 Right sided cerebral hemisphere cerebrovascular accident 157068285 I63.9 Hypokalemia 10967761 E87 .6 Essential hypertension 26525185 I10 Sundowning 004110440 F05 Loose stool 560065765 R1 9.5 Unsteady when walking 22 177967 R26.89 Decreased diastolic arterial pressure 15738105 R03.1 Active or passive immunization 344653251 Z23 [id number] MARIAM FANG [facility] [address] [place] [address] 07/20/2024 08:15:21 07/20/2024 09:24:16 Acute gastrointestinal hemorrhage 32903530 K92.2 Cerebral infarction 4325 82432 I63.9 Acute urin olman tract infection 790930749 N39.0 Hypernatremia 337887259 E87.0 Health Concerns Section Related Observation LastModified by Organization Detai ls LastModified Time None Recorded Concern Status LastModified by Organization Details LastModified Time None Recorded Payers Encounter Date Sequence Insurance Name Policy Number Policy Nicole Covered Member ID Nicole Member ID Guarantor Name 07/20/2024 2 [facility] (MEDICAID) Jennifer Archer [id number] Jennifer Archer 07/20/2024 1 [place] [employer] Jennifer Archer [id number] Jennifer Archer Notes Date Note Type Note Provider Name and Address Organization Details Recorded Time 07/20/2024 text/html HPI Notes: Pt. 74-F, w/dementia, here for transition of care follow up from 07/19/2024 [facility] where she was hospitalized for acute UTI, new acute small [facility] neuro-vascular had recommended medical management. The [...] her home health services. [address], [place], [address], [facility]. 07/20/2024 09:53:21 OBGyn Episode No OBEpisode recorded.
[2024-07-27 17:34] LABS: Abs Immature Grans 0.04 10^3/uL (0.0-0.06); Absolute Eosinophil Count 0.22 10^3/uL (0.0-0.7); Absolute Lymphocyte Count 2.28 10^3/uL (1.2-3.4); Absolute Monocyte Count 0.55 10^3/uL (0.1-0.8); Absolute Neutrophil Count 7.27 10^3/uL (1.2-6.7); Eosinophils % 2.1 %; HCT 32.2 % (36.0-46.0); HGB 10.5 g/dL (11.2-15.7); Immature Grans % 0.4 %; Lymphocytes % 21.8 %; MCH 30.6 pg (27.0-33.0); MCHC 32.6 % (32.0-36.0); MCV 94 fL (80-95); MPV 10.9 fL (8.0-11.0); Monocytes % 5.3 %; Neutrophils % 69.4 %; Platelet Count 298 10^3/uL (130-400); RBC 3.43 10^6/uL (3.93-5.22); RDW 14.2 % (11.7-14.6); RDW-SD 47.8 fL; WBC 10.46 10^3/uL (4.4-10.8)
[2024-07-27 17:47] LABS: BUN 26 mg/dL (7-18); CREATININE 1.7 mg/dL (0.55-1.02); Calcium 9.1 mg/dL (8.5-10.1); Chloride 109 mmol/L (98-107); Estimated GFR 31.27 (mL/min/1.73m2); Glucose 114 mg/dL (74-106); Magnesium 1.9 mg/dL (1.8-2.4); Potassium 3.6 mmol/L (3.5-5.1); Sodium 143 mmol/L (136-145)
[2024-07-27 17:53] LABS: Bilirubin Negative (Negative); Blood Negative (Negative); Clarity Clear (Clear); Glucose Negative (Negative); Ketones Negative (Negative); Leukocyte Esterase Negative (Negative); Nitrite Negative (Negative); Urobilinogen 0.2 mg/dL (Up to 0.2)
== END 2024-07-27 16:21 | disposition home or self-care (01) ==
LOC: LBN 16:20
PROVIDERS: PCP Student in an Organized Health Care Education/Training Program; Visit Provider Student in an Organized Health Care Education/Training Program
DX: I69.393 Ataxia following cerebral infarction (principal); R53.83 Other fatigue
CPT/HCPCS: 80048; 81003; 83735; 85025

== ENCOUNTER 2024-08-27 17:08 | Outpatient (REF) | payer MEDICARE, MEDICAID, SELFPAY ==
[2024-08-27 17:37] LABS: Anion Gap 12.3 mmol/L (3-11); BUN 40 mg/dL (7-18); CO2 24.7 mmol/L (21.0-32.0); CREATININE 1.5 mg/dL (0.55-1.02); Calcium 9.4 mg/dL (8.5-10.1); Chloride 106 mmol/L (98-107); Estimated GFR 36.34 (mL/min/1.73m2); Glucose 167 mg/dL (74-106); Sodium 143 mmol/L (136-145)
== END 2024-08-27 17:09 | disposition home or self-care (01) ==
LOC: NCHCN 17:08
PROVIDERS: PCP Student in an Organized Health Care Education/Training Program; Visit Provider Student in an Organized Health Care Education/Training Program
DX: E87.0 Hyperosmolality and hypernatremia (principal)
CPT/HCPCS: 80048

== ENCOUNTER 2024-09-24 16:49 | Outpatient (REF) | payer MEDICARE, MEDICAID, SELFPAY ==
--- OUTSIDE RECORDS SUMMARY | 2024-09-24 16:51 | XMS_ITS | Referral Summary ---
Author Organization [facility] Address [address] [place] [address] Care Team Providers Care Manager Analytical Name Role Phone Unavailable Primary Care Provider Unavailabl e Social History Tobacco Use Types Packs/Day Years Used Date Smoking Tobacco: Never Assessed Comments Unknown Sex and Gender Information Value Date Recorded Sex Assigned at Not on file Legal Sex Female 15:54 EDT Gender Identity Not on file Sexual Orientation Not on file Plan of Treatment Not on file
--- OUTSIDE RECORDS SUMMARY | 2024-09-24 16:51 | XMS_ITS | Encounter Summary ---
Author Organization [facility] Address [address] [place] [address] Care Team Providers Care Clam Shovel Operator Name Role Phone Unavailable Primary Care Provider Unavailabl e Encounter Details Date Type Department Care Team (Late st Contact Info) Description 12/11/2023 Lab Requisition [facility] Pathology & Laboratory Medicine - [facility] [address] [place] [address] Outr Resulting Lab, Provider Social History Tobacco [...] 4th Generation Negative Negative 12/12/2023 12:15 EDT [facility] Comment:If acute HIV-1 infec tion is suspected in a high risk patient, submit plasma specimen for HIV-1 RNA quantitation test. Blood VENOUS BLOOD / Unknown 12/11/2023 11:00 EDT 12/11/2023 21:23 EDT Narrative [facility] - 12/12/2023 12:15 EDT Fourth Generation assay performed on the Siemens Centaur XPT. us Provider Outr Resulting Lab IMMUNOLOGY AND SEROL OGY ORDERABLES Final Result [facility] [address] [place] [address] documented in this encounter Visit Diagnoses Not on filedocumented in this encounter
--- OUTSIDE RECORDS SUMMARY | 2024-09-24 16:51 | XMS_ITS | Encounter Summary ---
Author Organization [facility] Address [address] [place] [address] Care Team Providers Care Efficiency Expert Name Role Phone Unavailable Primary Care Provider Unavailabl e Encounter Details Date Type Department Care Team (Late st Contact Info) Description 12/11/2023 Lab Requisition [facility] Pathology & Laboratory Medicine - [facility] [address] [place] [address] Outr Resulting Lab, Provider Social History Tobacco [...] Syphilis Serology Negative Negative 12/12/2023 11:48 EDT [facility] Blood VENOUS BLOOD / Unknown 12/11/2023 11:00 EDT 12/11/2023 21:23 EDT us Provider Outr Resulting Lab IMMUNOLOGY AND SEROL OGY ORDERABLES Final Result [facility] [address] [place], [place] [address] documented in this encounter Visit Diagnoses Not on filedocumented in this encounter
--- OUTSIDE RECORDS SUMMARY | 2024-09-24 16:51 | XMS_ITS | Clinical Summary ---
Author Organization [facility] Address [address] [place] [address] Care Team Providers Care Furniture Assembler Name Role Phone Unavailable Primary Care Provider [...] Last Done Comments Hepatitis C Screen 1950 Fall Risk Screening 2015 COVID-19 Vaccine ( season) 2024 RSV Immunization ( o r 60+ Years) (1 - 1-dose 75+ series) 2025
--- OUTSIDE RECORDS SUMMARY | 2024-09-24 16:52 | XMS_ITS | Continuity of Care Document ---
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 For Annual in September: Consider DEXA/risk factors of former smoker: Mammography: Life expectancy < 10 years, especially given recent stroke and advancing dementia, won't recommend future mammograms unless symptomatic. - Advanced Directive not on file [email or web address] Not available 07/09/2024 11:48:19 Plan of Treatment Reminders Order Date Submit Date Provider Last Modified By Organization Details Last Modified Time Details Appointments Medicare Annual Wellness 40 2024 02:30P M Eduardo Lainez Not available Not available Not available Lab CBC w/ auto diff 2023 [facility] (Registration ), [address] [place] [address] [place], [address], 07/09/2024 16:14:29 BMP, serum or plasma 2023 024 [email or web address] (Registration ), [address] [place] [address] [place], [address], 07/16/2024 16:54:56 magnesium , serum or plasma 2023 [facility] (Registration ), [address] [place] [address] [place], [address], 07/16/2024 16:55:13 Referral None recorded. Procedures None recorded. Surgeries None recorded. Imaging None recorded. Medication Orders psyllium husk 0.4 gram capsule 2023 [id number], [address], [place], [id number], 07/09/2024 11:47:17 trazodone 50 mg tablet 2023 [facility] #[id number], [address], [place], [phone], 07/09/2024 11:47:17 Patient TargetsNo targets recorded. Patient Instructions Encounter Date Encounter Id Patient Instructions Last Modified By Organization Details Last Modified Time 07/09/2024 [id number] Keep the environment dark during the night [...] does not resolve. - Trial of Trazodone [email or web address] Not available 07/09/2024 10:05:30 Reason for Referral None Reported. Results Created Date Observation Date Name Description Value Unit Range Abnormal Flag Note LastModifiedBy Organization Detail LastModifiedTime 06/12/20 24 06/12/2024 x-ray imagi ng repor t Patikatie t Name: Martha Payton Unit #: [id number] Loc: ER Orderi ng Provid er: Lacho Correa M.D. t #: [id number] Status : REG ER Primar y [...] M.D. 1828 Transc ribed By: Vickie RODRIGUEZ,How [email or web address] 1828 This is privil eged, confid ential [...] the addres s above. Thank- you. INTERFACE [facility] [address], [place], [address] 06/12/2024 18:34:32 06/12/20 24 06/12/2024 x-ray imagi ng ofelia t Obdulia t Name: Martha Payton Unit #: [id number] Loc: ER Orderi ng Provid er: Lacho Correa M.D. Accoun t #: [id number] Status : REG ER Primar y [...] error, please notify us immedi ately at [phone] and return the origin al report to us at the addres s above. Thank- you. INTERFACE [facility] [address] [place], [address] 06/12/2024 18:34:33 06/12/20 24 06/12/2024 CT imagi ng repor t Patien t Name: Martha Payton Unit #: [id number] Loc: ER Orderi ng Provid er: Lacho Correa M.D. Accoun t #: [id number] Status : REG ER Primar y [...] error, please notify us immedi michellely at [phone] and return the origin al report to us at the addres s above. Thank- you. INTERFACE [facility] [address], [place], [address] 06/12/2024 18:43:33 06/12/20 24 06/12/2024 vrad ofelia wilde Name: Martha Payton Unit #: [id number] Loc: ER Orderi ng Provid er: Accoun t #: [id number] Status : REG ER Primar y [...] GS: ANTERI OR CIRCUL ATION: Right international banker al caroti d artery : Calcif ied plaque with severe stenos is cavern ous right ICA. Right middle cerebr al artery : Modera te to severe stenos is toe puncher ior M3 branch right MCA. No signif icant stenos is remain lien of the right MCA. Right anteri or cerebr al artery : No occlus ion or signif icant stenos is. No aneury sm. Left international banker al caroti d artery : Calcif ied plaque with modera te stenos is cavern ous left ICA. Left middle cerebr al artery : No occlus ion or signif icant stenos is. No aneury sm. Left anteri or cerebr al artery : No occlus ion or signif icant stenos is. No aneury sm. NURSE EDUCATOR IOR CIRCUL ATION: Right verteb ral artery : No occlus ion or signif icant stenos is. No aneury sm. Left verteb ral artery : No occlus ion or signif icant stenos is. No aneury sm. Basila r artery : No occlus ion or signif icant stenos is. No aneury sm. Right toe puncher ior cerebr al artery : No occlus ion or signif icant stenos is. No aneury sm. Left toe puncher ior cerebr al artery : No occlus ion or signif icant stenos is. No aneury sm. HEAD: Brain: Stable right toe puncher ior fronta l and pariet al infarc [...] rkable . IMPRES NATASHA: 1. Stable right toe puncher ior fronta l and pariet al infarc t. 2. 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 3. Calcif ied plaque with modera te stenos is cavern ous left ICA. 4. Modera te to severe stenos is toe puncher ior M3 branch right MCA. ASSESS MENT: [...] dissec tion or occlus ion. Right international banker al caroti d artery : No stenos is of the extrac ranial segmen t. No dissec tion or occlus ion. Right collet making machine operator al caroti d artery : No occlus ion or stenos is of the origin . Left common caroti d artery : No stenos is. No dissec tion or occlus ion. Left international banker al caroti d artery : No stenos is of the extrac ranial segmen t. No dissec tion or occlus ion. Left collet making machine operator al caroti d artery : No occlus [...] cervic al segmen t of the international banker al caroti d artery is based on NASCET criter ia. Normal is no stenos is. Mild is less than 50% stenos is. Modera te is 50-69% stenos is. Severe is 70% to 99% stenos is. Total occlus ion is no detect able patent lumen. Dictat ed and Daphnie sanchez d by: Abelardo Nagel MD. Thania barrios:P.Ashley ISST Shelby pina MD Access ion#=[id number] Gin torres By: CC: ------ ------ [...] error, please notify us immedi ately at [phone] and return the origin al report to us at the addres s above. Thank- you. [place] [address] [place], [address] 06/15/2024 15:45:36 06/13/2006/13/2024 vrad repor t Patien t Name: Wilnguyen carnesMarthanguyen Carnes Unit #: [id number] Loc: MS Thania barrios Provid er: Accoun t #: [id number] Status : ADM IN Primar y Care [facility] er: Yulissa Lainez Date of [...] MD. Orderi ng:Peyton Zhou MD Access ion#=[id number] Ordere d By: CC: ------ ------ [...] error, please notify us immedi ately at [phone] and return the origin al report to us at the addres s above. Thank- you. [email or web address] [facility] [address] [place], [address] 06/15/2024 15:45:36 06/13/20 24 06/13/2024 CT imagi ng repor t Obdulia t Name: Martha Payton Unit #: [id number] Loc: MS Orderi ng Provid er: Lacho Correa M.D. Accoun t #: [id number] Status : ADM IN Primar y [...] right side there is calcif ied plaque toe puncher iorly at the caroti d bulb-b ifurca tion level and there is also calcif ied plaque on the medial and toe puncher ior saldaña of the proxim al right ICA. Amount of stenos is at this level is estima liz at approx imatel y 40 percen t in the proxim al right ICA. The right ICA is nicely patent in the upper neck. Left caroti d bulb exhibi ts some calcif ied plaque anteri sherry. There is calcif ied plaque on the toe puncher ior wall the proxim al left ICA. Approx imatel y 30 percen t stenos is at this level. There is also self like plaque at the origin left ICA with more promin ent stenos is at this level, approx imatel y 70 percen t. Left ICA in the upper neck is patent . Landmen ior circul ation: Both verteb ral arteri [...] W: Anteri or circul ation: Both international banker al caroti d arteri es are patent in the skull base-c arotid canals . Both intra cavern ous international banker al caroti d arteri es are periph erally calcif ied. There is a signif icant focal stenos is at the juncti on of the intra cavern ous and suprac linoid aspect of the right international banker al caroti d artery with approx imatel [...] or commun icatin g artery . Left toe puncher ior cerebr al artery is patent withou t signif icant stenos is. There is mild-m oderat e narrow ing in the proxim al right middle cerebr al artery . No intral uminal thromb us seen. No aneury sms. No dissec tion flaps. Landmen ior circul ation: The basila r artery ascend s in the midlin e. Distal ly it gives off patent right toe puncher ior cerebr al artery althou gh there is a modera te stenos is in the toe puncher ior cerebr al artery a few cm distal to its origin . The left toe puncher ior cerebr al artery is predom inantl y fed by a toe puncher ior commun icatin g artery on the left side of the [place]. This that There is no eviden ce of aneury sm at the tip of the basila r artery nor elsewh ere in the [place]. CT BRAIN: Again noted is [...] REPOSI TORY: All CT scans at this [facility] are submit liz to the [facility] al Radiol ogy Data Regist ry (NRDR) Dose Index Regist ry (DIR) with the [place] of Radiol ogy (ACR). RADIAT ION OPTIMI ZATION : All CT scans at this [facility] use at least one of these dose [...] the addres s above. Thank- you. INTERFACE [facility] [address] [place], [address] 06/13/2024 15:50:13 06/13/20 24 06/13/2024 CT imagi ng repor t Patien t Name: Martha Payton Unit #: [id number] Loc: Ordermariola ng Provid er: Sanjana unger,Da vid Accoun t #: [id number] Status : ADM IN Primar [...] the addres s above. Thank- you. INTERFACE [facility] [address] [place], [address] 06/13/2024 16:16:16 06/14/20 24 06/14/2024 MRI imagi ng repor t Obdulia wilde Name: Martha Payton Unit #: [id number] Loc: MS Ordermariola ng Provid er: Sanjana unger,Da vid Accoun t #: [id number] Status : ADM IN Primar [...] the addres s above. Thank- you. INTERFACE [facility] [address] [place], [address] 06/14/2024 12:37:22 06/14/20 24 06/14/2024 ultra sound imagi ng repor t Patien t Name: Martha Payton Unit #: [id number] Loc: MS Monteiro ng Provid er: Jabari Bustamante Accoun t #: [id number] Status : ADM IN Primar [...] 28.8 mmHg. Pulmon ic Valve The pulmon olmna valve is normal in struct ure. There [...] error, please notify us immedi michellely at [phone] and return the origin al report to us at the addres s above. Thank- you. INTERFACE [facility] [address], [place], [address] 06/14/2024 15:22:54 07/16/20 24 07/16/2024 CT imagi ng repor t Patien t Name: Martha Payton Unit #: [id number] Loc: ER Orderi ng Provid er: Stephania Hagan t #: [id number] Status : REG ER Primar y [...] the addres s above. Thank- you. INTERFACE [facility] [address], [place], [address] 07/16/2024 14:51:01 07/16/2007/16/2024 x-ray imagi ng repor t Patien t Name: Martha Payton Unit #: [id number] Loc: ER Orderi ng Provid er: Stephania Hagan Accoun t #: [id number] Status : REG ER Primar y [...] the addres s above. Thank- you. INTERFACE [place] [address] [facility] [place], [address] 07/16/2024 14:58:08 07/16/2007/16/2024 CT imagi ng repor t Patikatie t Name: Wilnguyen carnesMartha n Deyvi Unit #: [id number] Loc: ER Orderi ng Provid er: Stephania Hagan Accoun t #: [id number] Status : REG ER Primar y [...] the addres s above. Thank- you. INTERFACE [facility] [address], [place], [address] 07/16/2024 17:29:32 Result Notes None recorded. Problems Name Problem SNOMED Code Status Onset Date Resolution Date Notes Provider Name and Address Organization Details Recorded Time Diarrhea 98756948 Active [address], [place], [address] , [facility], [facility]. 4 18:06:27 Poor short-term memory 358405385 Active [address], [place], [address] , [facility]. 4 10:28:13 Essential hypertensi on 78619452 Active [address], [place], [address], [facility] 4 10:29:23 Blood glucose outside reference range 168643276 Active [address], [place], [address], [facility] 4 10:30:43 Iritis 52739588 Active [address], [place], [address], [facility] 4 10:31:43 Tobacco dependence caused by cigarettes 957408515628 46303 Active [address], [place], [address], [facility] 4 12:23:42 Adjustment disorder with depressed mood 26986418 Active [address], [place], [address] , [facility] 4 12:26:28 Prediabete s 809486194 Active 2023 5.7% on [address], [place], [address], [facility] 4 07:52:17 History of coronary artery bypass grafting 242668951 Active 2009 In 2010 per prior med recs [address], [place], [address], [facility] 4 14:53:13 Unexplaine d weight loss 533727160 Active [address], [place], [address], [facility] 13:43:55 Chronic cough 42183909 Active [address], [place], [address], [facility] 13:44:00 Pain of left shoulder joint 595064110307 73726 Active [address], [place], [address], [facility] 13:44:16 Hyperlipid emia 03097791 Active [address], [place], [address], [facility] 13:48:11 Chronic obstructiv e pulmonary disease 61798333 Active [address], [place], [address], [facility] 13:49:36 Lacunar infarction 947236778 Active [address], [place], [address], [facility] 18:17:27 Bradycardi a 77124292 Active [address], [place], [address], [facility] 18:36:12 Chronic kidney disease stage 3B 576474748 Active 2023 NOted in 1 Note in prior MR as stage 3 D/T HTN. Plan to control BP as care plan. [address], [place], [address], [facility] 05/09/202 4 05:24:31 Pulmonary emphysema 78791815 Active [address], [place], [address], [facility] 4 12:31:17 Leukocytos is 796616493 Active [address], [place], [address], [facility] 20:10:17 Pyuria 1248284 Active [address], [place], [address], [facility] 20:12:07 Agitation due to dementia 101524415 Active [address], [place], [address], [facility] 16:19:39 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 157595853 Active [address], [place], [address], [facility] 08:09:53 Hypokalemi a 63197401 Active [address], [place], [address], [facility] 08:10:59 Sundowning 278899091 Active [address], [place], [address], [facility] 08:12:54 Loose stool 549065923 Active [address], [place], [address], [facility] 4 09:45:26 Unsteady when walking 82746650 Active [address], [place], [address], [facility] 4 10:02:59 Decreased diastolic arterial pressure 67935155 Active [address], [facility] [address], [facility] 4 10:04:18 Acute gastrointe stinal hemorrhage 51271077 Active [address], [place], [address], [facility] 4 06:49:56 Cerebral infarction 721807756 Active [address], [place], [address], [facility] 4 06:50:08 Acute urinary tract infection 689298816 Active [address], [place], [address], [facility] 06:52:30 Hypernatre sanaz 305119580 Active [address], [place], [address], [facility] 4 06:55:39 Problem Notes None recorded. Medical Equipment None Reported. Allergies Allergen ID Allergen Name Allergen Category Reaction Reaction Severity Criticality Documentation Date Start Date Code Code System Note Provider Name and Address Organization Details Recorded Time 33920 chlorthal idone medicatio n Not available Not available high 01/28/[address], [place], [address], [facility] 4 17:56:24 78368 hydrochlo rothiazid e medicatio n Not available Not available [facility] 01/28/2024 5487 RxNorm MARIAM FANG [address], [place], [address] [place] [address] 4 17:56:38 Medications Name Sig Start Date Stop Date Status Note LastModified by Organization Details LastModified Time losartan 50 mg tablet Take 1 tablet every day by oral route as directed . 08/11 completed [facility] Not Available Not Available Not Available quetiapin e 25 mg tablet 1 tablet by mouth each night 2023 active Not Available Not Available Not Avai lable atorvasta tin 80 mg tablet Take 1 tablet every day by oral route at bedtime. 2023 active updated from [facility] [employer] Not Available Not Available Not Available cefuroxim [...] tablet every 12 hours by oral route. 08/10 completed End date of 07/21/20 24 Not Available Not Available Not Available aspirin 325 mg tablet Take 1 tablet every day by oral route as needed. 07/01 completed Not Available Not Available Not Available sodium bicarbona te 325 mg tablet Take 2 tablets every day by oral route as directed . 2023 active [facility] Not Available Not Available Not Available sucralfat e 1 gram tablet 1 tab by mouth before meals and at night active Started by [facility] in setting of GI bleed [...] day by oral route as directed . 09/23 completed Increasi ng to 10 mg in morning, at refill send 10 mg tablet of this once daily in the AM.Incre ased to 10mg on 07-28 (take 2 tablets) Not Available Not Available Not Available aspirin 81 mg tablet,de layed release Take 1 tablet every day by oral route. 07/20 completed Pt, with acute hemorrag e and GI bleed at 07/13/20 [facility] hospital in setting of taking aspirin. Aspirin held at this time pending GI consult. Not Available Not Available Not Available amlodipin e 10 mg tablet Take 1 tablet every day by oral route. 2024 active Not Available Not Available Not Avai lable pantopraz ole 40 mg tablet,de layed release Take 1 tablet every day by oral route. 2023 active started by [facility] in setting of GI bleed 07/19/20 d/c note Not Available Not Available Not Available losartan 25 mg tablet Take 1 tablet every day by oral route as directed . 07/01 completed Not Available Not Available Not Available sertralin e 25 mg tablet Take 1 tablet every day by oral route. 2023 active Not Available Not Available Not Avai lable Lomotil 2.5 mg-0.025 mg tablet 2 tabs PO 4 times daily till diarrhea stops then 1 tab PO QID thereaft er. 2023 active Not Available Not Available Not Avai lable nicotine 7 mg/24 hr daily transderm al patch Apply 1 patch every day by transder mal route as directed . 2023 active Per [facility] [employer] EMR Not Available Not Available Not Available Ventolin HFA 90 mcg/actua tion aerosol inhaler 2-puffs every four hours as needed 2023 active Not Available Not Available Not Avai lable Bactrim DS 800 mg-160 mg tablet Take 1 tablet every 12 hours by oral route for 7 days. 07/01 completed Not Available Not Available Not Available olmesarta n 20 mg tablet TAKE 1 TABLET BY MOUTH EVERY DAY active Not Available Not Available No t Available metoprolo l tartrate 25 mg tablet [...] Updated DateTime 4 147.32 cm 19.9 kg/m2 47602.9 9 g 98.6 [degF] 100 % 100 % 14 /min 70 /min 108 mm[Hg] 48 mm[Hg] SUKHDEV TORIBIO RN [facility] 09:38:14 Social History Question Answer Notes LastModified by Organizat ion Details LastModified Time Tobacco Smoking Status Current Every Day Smoker [place], [facility] 11/01/2023 11:33:08 Would You [...] Much Tobacco Do You Smoke? 0.5 PPD [email or web address] Information not available 05/14/2024 Has Tobacco Cessation Counseling Been Provided? Yes Information not available 11/01/2023 On What Date Was Tobacco Cessation Counseling Provided? 05/14/2024 [email or web address] Information not available 05/14/2024 Do You Or [...] 0 0 Immunizations Vaccine Type Date Status Note Provider Nam e and Address Organization Details Recorded Time Influenza, high-dose, trivalent, PF 07/09/2024 completed MARIAM FANG [address], [facility] [address], [facility] 07/09/2024 11:46:08 COVID-19, mRNA, LNP-S, PF, angie-sucrose, 30 mcg/0.3 mL 07/09/[address], [facility] [address], [facility] 07/09/2024 11:46:08 Tdap 07/09/2024 MARIAM Rawls [address], [facility] [address], [facility] 07/09/2024 11:46:08 Past Encounters Encounter ID Performer Location Encounter Start Date Encounter Closed Date Diagnosis/Indication Diagnosis SNOMED-CT Code Diagnosis ICD10 Code [id number] MARIAM FANG [facility] [address] [place] [address] 07/09/2024 09:29:21 07/09/2024 10:24:04 Right sided cerebral hemisphere cerebrovascular accident 893260447 I63.9 Hypokalemia 06650589 E87 .6 Essential hypertension 62892078 I10 Sundowning 243498869 F05 Loose stool 887299157 R1 9.5 Unsteady when walking 22 885381 R26.89 Decreased diastolic arterial pressure 97122727 R03.1 Active or passive immunization 109370249 Z23 Health Concerns Section Related Observation LastModified by Organization Detai ls LastModified Time None Recorded Concern Status LastModified by Organization Details LastModified Time None Recorded Payers Encounter Date Sequence Insurance Name Policy Number Policy Nicole Covered Member ID Nicole Member ID Guarantor Name 07/09/2024 1 [place] [employer] Jennifer Archer [id number] Jennifer Archer 07/09/2024 2 [facility] (MEDICAID) Jennifer Archer [id number] Jennifer Archer Notes Date Note Type Note Provider Name and Address Organization Details Recorded Time 07/09/2024 text/html Pt, 74-F, here f or MARIAH after d/c from [facility] 06/17/2024 for Subacute right occipital CVA, hypertension. Pt. started on 3-week course of Plavix and aspirin 81 mg which rec'd she take for life. Having some trouble with potassium retention during hospital stay.Sleep: Was better last night. Rough night before. We had increased quetiapine which helped night number 1, not so much the second, and then she slept better last night. Unsteadiness: New lightheadedness since quetiapine dose increase Emilhy just noticed. Low diastolic pressure today. MARIAM FANG [address], [place], [address], [facility]. 07/09/2024 11:48:31 OBGyn Episode No OBEpisode recorded.
--- OUTSIDE RECORDS SUMMARY | 2024-09-24 16:52 | XMS_ITS | Data Portability ---
Author Organization [place] [facility], [facility] [place] [address] Assessment Encounter Date Assessment Date Assessment LastModified by Organization Details LastModified Time 01/28/2024 01/28/2024 Appointment slightly scattered with unexplained weight loss, so Donna automobile bumper straightener agreeable to have pt. back in office for EKG in light of Lacunar Infarct/Bradycard ia today. We will hold off on cardiac monitoring order to do the EKG in office first. 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 For Annual in September: Consider DEXA/risk factors of former smoker: Mammography: Life expectancy < 10 years, especially given recent stroke and advancing dementia, won't recommend future mammograms unless symptomatic. - Advanced Directive not on file [email or web address] Not available 07/09/2024 11:48:19 07/20/2024 07/20/2024 Care mgmt note 07/19/2024 states,Discharge home with resumption of full [facility] services and [facility] er supports. Follow up with PCP and discharge plan of care as recommended. Donna will provide transportation. Patient/Family Education Needs: Review discharge instructions, limitations, medications and plan to follow up with community providers. Discuss ask me three. 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) and Homemaking Services (Provided by [facility]) Donna reports she has to call [...] Medicare Annual Wellness 40 2024 02:30P M Eduardoyovani Lainez Not available Not available Not available Lab CBC w/ auto diff - 1 SST, 1 LAV [address] [facility] (Registration ), [address] [place] [address] [place], [address], 01/28/2024 21:28:19 CMP, serum or plasma [address] [facility] (Registration ), [address] [place] [address] [place], [address], 01/28/2024 21:28:19 TSH + free T4, serum 2023 024 [facility] (Registration ), [address] [place] [address] [place], [address], 02/04/2024 10:03:18 lipid panel, serum 2023 024 [email or web address] ([facility]), [address] [place] [address] [place], [address], 05/25/2024 11:29:30 culture, urine + sensitivi ty 2023 024 [facility] (Registration ), [address] [place] [address] [place], [address], 05/17/2024 08:14:58 microscop ic method, urine 2023 024 [facility] (Registration ), [address] [place] [address] [place], [address], 05/15/2024 08:48:21 urinalysi s, dipstick 2023 024 [email or web address] [facility], [address], [address], [place], [address], 05/14/2024 20:40:44 CBC w/ auto diff 2023 024 [facility] (Registration ), [address] [place] [address] [place], [address], 07/09/2024 16:14:29 BMP, serum or plasma [address] [facility] (Registration ), [address] [place] [address] [place], [address], 07/16/2024 16:54:56 magnesium , serum or plasma [address] [facility] (Registration ), [address] [place] [address] [place], [address], 07/16/2024 16:55:13 CBC w/ auto diff 2023 024 [facility] (Registration ), [address] [place] [address] [place], [address], 07/20/2024 16:04:47 BMP, serum or plasma [address] [facility], [address] , [place], [address], 07/28/2024 10:41:09 magnesium , serum or plasma [address] [facility] (Registration ), [address] [place] [address] [place], [address], 07/27/2024 09:31:07 Referral None recorded. Procedures None recorded. Surgeries None recorded. Imaging MR, angiogram , head + neck, w/wo contrast - Pt. with incidenta l finding of lacunar infarct on 01/19/2024 MRI of head ordered for cognitive decline, but no acute symptoms change in last 4-months per caregiver report that correlate with stroke symptoms. 2023 024 [email or web address] [facility] [address], [place], [address], 02/02/2024 08:16:45 US, echocardi ogram - Pt. with 01/19/2024 incidenta l finding of lacunar infarct on Brain MRI. Pt.withou t known A-fib, but does have extensive smoking history. 2023 024 [email or web address] [facility] [address], [place], [address], 03/09/2024 14:42:08 CT, chest, w/o contrast - [...] 2023 024 [email or web address] [facility], [address], [place], [address], 03/10/2024 10:39:10 Medication Orders Ventolin HFA 90 mcg/actua tion aerosol inhaler 2023 024 [id number], [address], [place], [id number], 01/28/2024 18:04:41 cefuroxim e axetil 250 mg tablet 2023 024 [email or web address], [address] [place], [address], 07/01/2024 11:35:09 cefuroxim e axetil 250 mg tablet 2023 024 [email or web address] Not available 07/01/2024 11:35:09 psyllium husk 0.4 gram capsule 2023 024 [facility] #[id number], [address], [place], [id number], 07/09/2024 11:47:17 trazodone 50 mg tablet 2023 [facility] #[id number], [address], [place], [id number], 07/09/2024 11:47:17 Lactobaci llus acidophil us 1 billion cell tablet 2023 [facility] #[id number], [address], [place], [id number], 07/20/2024 09:06:11 Patient TargetsNo targets recorded. Patient Instructions Encounter Date Encounter Id Patient Instructions Last Modified By Organization Details Last Modified Time 05/14/2024 [id number] 1. I am concerne d that her symptoms may be related to a urinary tract infection thus I have gone ahead and given her her first tablet of antibiotic tonight and the remaining doses were sent to the [facility] in [place]. She will take this medication morning and [...] results. [email or web address] Not available 05/14/2024 20:58:45 07/09/2024 [id number] Keep the environment dark during the night [...] does not resolve. - Trial of Trazodone [email or web address] Not available 07/09/2024 10:05:30 07/20/2024 [id number] Continue to hold aspirin. Not available 07/20/2024 09:14:21 Reason for Referral None Reported. Results Created Date Observation Date Name Description Value Unit Range Abnormal Flag Note LastModifiedBy Organization Detail LastModifiedTime 01/28/2001/28/2024 COMPL ETE BLOOD COUNT W/DIF F WBC 8.22 10_3/ uL 4.4-10 .8 normal Not Available [address] [place], [address] 01/28/2024 19:08:00 01/28/20 24 01/28/2024 COMPL ETE BLOOD COUNT W/DIF F RBC 4.10 10_6/ uL 3.93-5 .22 normal Not Available [address] [place], [address] 01/28/2024 19:08:00 01/28/20 24 01/28/2024 COMPL ETE BLOOD COUNT W/DIF F HGB 12.6 g/dL 11.2-1 5.7 normal Not Available [address] [place], [address] 01/28/2024 19:08:00 01/28/20 24 01/28/2024 COMPL ETE BLOOD COUNT W/DIF F HCT 36.2 % 36.0-4 6.0 normal Not Available [address] [place], [address] 01/28/2024 19:08:00 01/28/20 24 01/28/2024 COMPL ETE BLOOD COUNT W/DIF F MCV 88 fL 80-95 normal Not Available Marilin oliver [address] [place], [address] 01/28/2024 19:08:00 01/28/20 24 01/28/2024 COMPL ETE BLOOD COUNT W/DIF F MCH 30.7 pg 27.0-3 3.0 normal Not Available [address] [place], [address] 01/28/2024 19:08:00 01/28/20 24 01/28/2024 COMPL ETE BLOOD COUNT W/DIF F MCHC 34.8 % 32.0-3 6.0 normal Not Available [address] [place], [address] 01/28/2024 19:08:00 01/28/20 24 01/28/2024 COMPL ETE BLOOD COUNT W/DIF F RDW 12.6 % 11.7-1 4.6 normal Not Available [address] [place], [address] 01/28/2024 19:08:00 01/28/20 24 01/28/2024 COMPL ETE BLOOD COUNT W/DIF F platelet count 241 10_3/ uL 130-40 0 normal Not Available [address] [place], [address] 01/28/2024 19:08:00 01/28/20 24 01/28/2024 COMPL ETE BLOOD COUNT W/DIF F MPV 11.8 fL 8.0-11 .0 high Not Available [address] [place], [address] 01/28/2024 19:08:00 01/28/20 24 01/28/2024 COMPL ETE BLOOD COUNT W/DIF F neutrophils % 54.7 % Not Available [address] [place], [address] 01/28/2024 19:08:00 01/28/20 24 01/28/2024 COMPL ETE BLOOD COUNT W/DIF F lymphocytes % 35.4 % Not Available [address] [place], [address] 01/28/2024 19:08:00 01/28/20 24 01/28/2024 COMPL ETE BLOOD COUNT W/DIF F monocytes % 6.9 % Not Available [address] [place], [address] 01/28/2024 19:08:00 01/28/20 24 01/28/2024 COMPL ETE BLOOD COUNT W/DIF F eosinophils % 2.2 % Not Available [address] [place], [address] 01/28/2024 19:08:00 01/28/20 24 01/28/2024 COMPL ETE BLOOD COUNT W/DIF F basophils % 0.6 % Not Available [address] [place], [address] 01/28/2024 19:08:00 01/28/20 24 01/28/2024 COMPL ETE BLOOD COUNT W/DIF F immature grans % 0.2 % Not Available [facility][1] [email or web address], [address] 01/28/2024 19:08:00 01/28/20 24 01/28/2024 COMPL ETE BLOOD COUNT W/DIF F nucleated RBC 0.0 % 0.0-0. 3 normal Not Available [address] [place], [address] 01/28/2024 19:08:00 01/28/20 24 01/28/2024 COMPL ETE BLOOD COUNT W/DIF F absolute neutrophil count 4.49 10_3/ uL 1.2-6. 7 normal Not Available [address] [place], [address] 01/28/2024 19:08:00 01/28/20 24 01/28/2024 COMPL ETE BLOOD COUNT W/DIF F absolute lymphocyte count 2.91 10_3/ uL 1.2-3. 4 normal Not Available [address] [place], [address] 01/28/2024 19:08:00 01/28/20 24 01/28/2024 COMPL ETE BLOOD COUNT W/DIF F absolute monocyte count 0.57 10_3/ uL 0.1-0. 8 normal Not Available [address] [place], [address] 01/28/2024 19:08:00 01/28/20 24 01/28/2024 COMPL ETE BLOOD COUNT W/DIF F absolute eosinophil count 0.18 10_3/ uL 0.0-0. 7 normal Not Available [address] [place], [address] 01/28/2024 19:08:00 01/28/20 24 01/28/2024 COMPL ETE BLOOD COUNT W/DIF F absolute basophil count 0.05 10_3/ uL 0.0-0. 2 normal Not Available [address] [place], [address] 01/28/2024 19:08:00 01/28/20 24 01/28/2024 COMPR EHENS JR METAB OLIC PANEL calcium 9.6 mg/dL 8.5-10 .1 normal Not Available [address] [place], [address] 01/28/2024 20:28:19 01/28/20 24 01/28/2024 COMPR EHENS JR METAB OLIC PANEL glucose 148 mg/dL 74-106 high Not Available Marilin oliver [address] [place], [address] 01/28/2024 20:28:19 01/28/20 24 01/28/2024 COMPR EHENS JR METAB OLIC PANEL BUN 25 mg/dL 7-18 high Not Available Marilin [address] [place], [address] 01/28/2024 20:28:19 01/28/20 24 01/28/2024 COMPR EHENS JR METAB OLIC PANEL creatinine 1.6 mg/dL 0.55-1 .02 high Not Available [address] [place], [address] 01/28/2024 20:28:19 01/28/20 24 01/28/2024 COMPR EHENS [...] er-ag ed adult s. Not Available [address] [place], [address] 01/28/2024 20:28:19 01/28/20 24 01/28/2024 COMPR EHENS JR METAB OLIC PANEL total protein 7.3 g/dL 6.4-8. 2 normal Not Available [address] [place], [address] 01/28/2024 20:28:19 01/28/20 24 01/28/2024 COMPR EHENS JR METAB OLIC PANEL albumin 4.1 g/dL 3.4-5. 0 normal Not Available [address] [place], [address] 01/28/2024 20:28:19 01/28/20 24 01/28/2024 COMPR EHENS JR METAB OLIC PANEL bilirubin, total 0.3 mg/dL 0.2-1. 0 normal Not Available [address] [place], [address] 01/28/2024 20:28:19 01/28/20 24 01/28/2024 COMPR EHENS JR METAB OLIC PANEL alk phos 108 U/L 46-116 normal Not Available [address] [place], [address] 01/28/2024 20:28:19 01/28/20 24 01/28/2024 COMPR EHENS JR METAB OLIC PANEL sodium 142 mmol/ L 136-14 5 normal Not Available [address] [place], [address] 01/28/2024 20:28:19 01/28/20 24 01/28/2024 COMPR EHENS JR METAB OLIC PANEL potassium 3.9 mmol/ L 3.5-5. 1 normal Not Available [address] [place], [address] 01/28/2024 20:28:19 01/28/20 24 01/28/2024 COMPR EHENS JR METAB OLIC PANEL chloride 105 mmol/ L 98-107 normal Not Available [address] [place], [address] 01/28/2024 20:28:19 01/28/20 24 01/28/2024 COMPR EHENS JR METAB OLIC PANEL CO2 21.6 mmol/ L 21.0-3 2.0 normal Not Available [address] [place], [address] 01/28/2024 20:28:19 01/28/20 24 01/28/2024 COMPR EHENS JR METAB OLIC PANEL anion gap 15.4 mmol/ L 3-11 high Not Available [address] [place], [address] 01/28/2024 20:28:19 01/28/20 24 01/28/2024 COMPR EHENS JR METAB OLIC PANEL AST 14 U/L 15-37 low Not Available Marilin oliver [address] [place], [address] 01/28/2024 20:28:19 01/28/20 24 01/28/2024 COMPR EHENS JR METAB OLIC PANEL ALT 18 U/L 14-59 normal Not Available Marilin oliver [address] [place], [address] 01/28/2024 20:28:19 01/28/20 24 01/28/2024 TSH TSH 1.23 uIU/m L 0.36-3 .74 normal Not Available [address] [place], [address] 01/28/2024 20:28:20 01/28/20 24 01/28/2024 FREE T4 free T4 0.93 NG/dL 0.76-1 .46 normal Not Available [address] [place], [address] 01/28/2024 20:28:20 05/14/20 24 05/14/2024 MICRO SCOPI C FINDI NGS WBC 10-20 hpf 0-5 abnormal Not Available [facility] (Registration ) [address] [place] [address] [place], [address], 05/14/2024 21:28:28 05/14/20 24 05/14/2024 MICRO SCOPI C FINDI NGS RBC 3-5 hpf 0-2 abnormal Not Available [facility] (Registration ) [address] [place] [address] [place], [address], 05/14/2024 21:28:28 05/14/20 24 05/14/2024 MICRO SCOPI C FINDI NGS epithelial cells Modera te hpf negati ve Not Available [facility] (Registration ) [address] [place] [address] [place], [address], 05/14/2024 21:28:28 05/14/20 24 05/14/2024 MICRO SCOPI C FINDI NGS bacteria Modera te hpf negati ve Not Available [facility] (Registration ) [address] [place] [address] [place], [address], 05/14/2024 21:28:28 05/14/20 24 05/14/2024 MICRO SCOPI C FINDI NGS crystals Negati ve hpf negati ve Not Available [facility] (Registration ) [address] [place] [address] [place], [address], 05/14/2024 21:28:28 05/14/20 24 05/14/2024 MICRO SCOPI C FINDI NGS mucus Negati ve negati ve Not Available [facility] (Registration ) [address] [place] [address] [place], [address], 05/14/2024 21:28:28 05/14/20 24 05/14/2024 MICRO SCOPI C FINDI NGS casts Negati ve lpf negati ve Not Available [facility] (Registration ) [address] [place] [address] [place], [address], 05/14/2024 21:28:28 05/14/20 24 05/14/2024 MICRO SCOPI C FINDI NGS C S indicated? C S Done As Ordere d Not Available [facility] (Registration ) [address] [place] [address] [place], [address], 05/14/2024 21:28:28 05/14/20 24 05/16/2024 URINE CULTU RE urine culture Urine Cultu re Proba ble conta minat ed colle ction APPEA DEBBIE Mixed Gram Posit jr Haylee COLON Y COUNT Not Available [facility] (Registration ) [address] [place] [address] [place], [address], 05/16/2024 10:35:04 05/14/20 24 05/16/2024 URINE CULTU RE urine culture colon ies/m L 50,00 0 - 100,0 00 Day 1 Resul t ISOLA RAISA BELOW O:GPF M (ORGA NISM ID: [id number]) - GRAM POSIT JR HAYLEE ,MIXE D Urine Cultu re (ORGA NISM ID: [id number]) - COLON Y COUNT (ORGA NISM ID: 1.1) - 50,00 0 - 100,0 00 Not Available [facility] (Registration ) [address] [place] [address] [place], [address], 05/16/2024 10:35:04 05/14/20 24 05/17/2024 URINE CULTU RE urine culture Urine Cultu re Proba ble conta minat ed colle ction APPEA DEBBIE Mixed Gram Posit jr Haylee APPEA DEBBIE Mixed Gram Posit jr Haylee COLON Y COUNT Not Available [facility] (Registration ) [address] [place] [address] [place], [address], 05/17/2024 10:00:22 05/14/20 24 05/17/2024 URINE CULTU [...] ID: 1.1) - >100, 000 Not Available [facility] (Registration ) [address] [place] [address] [place], [address], 05/17/2024 10:00:22 05/14/20 24 05/14/2024 urina lysis , dipst ick Leukocytes Trace Not Available [address], [place], [address], 05/14/2024 20:24:45 05/14/20 24 05/14/2024 urina lysis , dipst ick Nitrite negati ve Not Available [address], [place], [address], 05/14/2024 20:24:45 05/14/20 24 05/14/2024 urina lysis , dipst ick Urobilinogen .2 Not Available [address], [place], [address], 05/14/2024 20:24:45 05/14/20 24 05/14/2024 urina lysis , dipst ick Protein 100 Not Available [address], [place], [address], 05/14/2024 20:24:45 05/14/20 24 05/14/2024 urina lysis , dipst ick pH 5.0 Not Available [address], [place], [address], 05/14/2024 20:24:45 05/14/20 24 05/14/2024 urina lysis , dipst ick Blood Negati ve Not Available [address], [place], [address], 05/14/2024 20:24:45 05/14/20 24 05/14/2024 urina lysis , dipst ick Specific [place] 1.015 Not Available [address], [place], [address], 05/14/2024 20:24:45 05/14/20 24 05/14/2024 urina lysis , dipst ick Ketone Trace Not Available [address], [place], [address], 05/14/2024 20:24:45 05/14/20 24 05/14/2024 urina lysis , dipst ick Bilirubin Small Not Available [address], [place], [address], 05/14/2024 20:24:45 05/14/20 24 05/14/2024 urina lysis , dipst ick Glucose Negati ve Not Available [address], [place], [address], 05/14/2024 20:24:45 05/14/20 24 05/14/2024 urina lysis , dipst ick Appearance Clear Not Available [address], [place], [address], 05/14/2024 20:24:45 05/14/20 24 05/14/2024 urina lysis , dipst ick Color Dark Yellow Not Available [address], [place], [address], 05/14/2024 20:24:45 06/12/20 24 06/12/2024 URINE DRUG SCREE N ([facility] ) methadone Negati ve negati ve Not Available [address] [facility] [place], [address] 06/12/2024 20:21:43 06/12/20 24 06/12/2024 URINE DRUG SCREE N ([facility] ) benzodiazepi sharad Negati ve negati ve Benzo diaze pines are exten sivel y metab olize d and the paren t compo und may not be detec liz in urine . If clini shea suspi cion is high, pleas e notif y Lab for send- out testi ng. Not Available [address] [facility] [place], [address] 06/12/2024 20:21:43 06/12/20 24 06/12/2024 URINE DRUG SCREE N ([facility] ) cocaine Negati ve negati ve Not Available [address] [place], [address] 06/12/2024 20:21:43 06/12/20 24 06/12/2024 URINE DRUG SCREE N ([facility] ) amphetamines Negati ve negati ve Not Available [address] [place], [address] 06/12/2024 20:21:43 06/12/20 24 06/12/2024 URINE DRUG SCREE N ([facility] ) tetrahydroca nnabinol Negati ve negati ve Not Available [address] [place], [address] 06/12/2024 20:21:43 06/12/20 24 06/12/2024 URINE DRUG SCREE N ([facility] ) opiates Negati ve negati ve Not Available [address] [place], [address] 06/12/2024 20:21:43 06/12/20 24 06/12/2024 URINE DRUG SCREE N ([facility] ) barbiturates Negati ve negati ve Not Available [address] [place], [address] 06/12/2024 20:21:43 06/12/20 24 06/12/2024 URINE DRUG [...] of these resul ts. Not Available [address] [place], [address] 06/12/2024 20:21:43 06/12/20 24 06/12/2024 MICRO SCOPI C FINDI NGS WBC Negati ve hpf 0-5 Not Available [address] [place], [address] 06/12/2024 20:10:41 06/12/20 24 06/12/2024 MICRO SCOPI C FINDI NGS RBC Negati ve hpf 0-2 Not Available [address] [place], [address] 06/12/2024 20:10:41 06/12/20 24 06/12/2024 MICRO SCOPI C FINDI NGS epithelial cells Rare hpf negati ve Not Available [address] [place], [address] 06/12/2024 20:10:41 06/12/20 24 06/12/2024 MICRO SCOPI C FINDI NGS bacteria Rare hpf negati ve Not Available [address] [place], [address] 06/12/2024 20:10:41 06/12/20 24 06/12/2024 MICRO SCOPI C FINDI NGS crystals Negati ve hpf negati ve Not Available [address] [place], [address] 06/12/2024 20:10:41 06/12/20 24 06/12/2024 MICRO SCOPI C FINDI NGS mucus Negati ve negati ve Not Available [address] [place], [address] 06/12/2024 20:10:41 06/12/20 24 06/12/2024 MICRO SCOPI C FINDI NGS casts Negati ve lpf negati ve Not Available [address] [place], [address] 06/12/2024 20:10:41 06/12/20 24 06/12/2024 MICRO SCOPI C FINDI NGS C S indicated? No Not Available [address] [place], [address] 06/12/2024 20:10:41 06/12/20 24 06/12/2024 URINA LYSIS color Yellow yellow Not Available Marilin oliver [address] [place], [address] 06/12/2024 20:10:40 06/12/20 24 06/12/2024 URINA LYSIS clarity Clear clear Not Available Marilin oliver [address] [place], [address] 06/12/2024 20:10:40 06/12/20 24 06/12/2024 URINA LYSIS specific gravity 1.025 1.005- 1.025 normal Not Available [address] [place], [address] 06/12/2024 20:10:40 06/12/20 24 06/12/2024 URINA LYSIS pH 5.5 5-8 normal Not Available Marilin oliver [address] [place], [address] 06/12/2024 20:10:40 06/12/20 24 06/12/2024 URINA LYSIS leukocyte esterase Negati ve negati ve Not Available [address] [place], [address] 06/12/2024 20:10:40 06/12/20 24 06/12/2024 URINA LYSIS nitrite Negati ve negati ve Not Available [address] [place], [address] 06/12/2024 20:10:40 06/12/20 24 06/12/2024 URINA LYSIS protein 30 mg/dL neg-tr erendira abnormal Not Available [address] [place], [address] 06/12/2024 20:10:40 06/12/20 24 06/12/2024 URINA LYSIS glucose Negati ve mg/dL negati ve Not Available [address] [place], [address] 06/12/2024 20:10:40 06/12/20 24 06/12/2024 URINA LYSIS ketones Negati ve mg/dL negati ve Not Available [address] [place], [address] 06/12/2024 20:10:40 06/12/20 24 06/12/2024 URINA LYSIS urobilinogen 0.2 mg/dL up to 0.2 Not Available [address] [place], [address] 06/12/2024 20:10:40 06/12/20 24 06/12/2024 URINA LYSIS bilirubin Negati ve negati ve Not Available [address] [place], [address] 06/12/2024 20:10:40 06/12/20 24 06/12/2024 URINA LYSIS blood Negati ve negati ve Not Available [address] [place], [address] 06/12/2024 20:10:40 06/12/20 24 06/12/2024 URINA LYSIS color Yellow yellow Not Available Marilin oliver [address] [place], [address] 06/12/2024 20:04:40 06/12/20 24 06/12/2024 URINA LYSIS clarity Clear clear Not Available Marilin oliver [address] [place], [address] 06/12/2024 20:04:40 06/12/20 24 06/12/2024 URINA LYSIS specific gravity 1.025 1.005- 1.025 normal Not Available [address] [place], [address] 06/12/2024 20:04:40 06/12/20 24 06/12/2024 URINA LYSIS pH 5.5 5-8 normal Not Available Marilin oliver [address] [place], [address] 06/12/2024 20:04:40 06/12/20 24 06/12/2024 URINA LYSIS leukocyte esterase Negati ve negati ve Not Available [address] [place], [address] 06/12/2024 20:04:40 06/12/20 24 06/12/2024 URINA LYSIS nitrite Negati ve negati ve Not Available [address] [place], [address] 06/12/2024 20:04:40 06/12/20 24 06/12/2024 URINA LYSIS protein 30 mg/dL neg-tr erendira abnormal Not Available [address] [place], [address] 06/12/2024 20:04:40 06/12/20 24 06/12/2024 URINA LYSIS glucose Negati ve mg/dL negati ve Not Available [address] [place], [address] 06/12/2024 20:04:40 06/12/20 24 06/12/2024 URINA LYSIS ketones Negati ve mg/dL negati ve Not Available [address] [place], [address] 06/12/2024 20:04:40 06/12/20 24 06/12/2024 URINA LYSIS urobilinogen 0.2 mg/dL up to 0.2 Not Available [address] [place], [address] 06/12/2024 20:04:40 06/12/20 24 06/12/2024 URINA LYSIS bilirubin Negati ve negati ve Not Available [address] [place], [address] 06/12/2024 20:04:40 06/12/20 24 06/12/2024 URINA LYSIS blood Negati ve negati ve Not Available [address] [place], [address] 06/12/2024 20:04:40 06/12/20 24 06/12/2024 ACETA MINOP HEN acetaminophe n < 2 ug/mL 10-30 Not Available Yamil marrero [address] [place], [address] 06/12/2024 18:20:32 06/12/20 24 06/12/2024 LIPAS E lipase 71 U/L 16-77 normal Not Available Marilin oliver [address] [place], [address] 06/12/2024 18:55:40 06/12/20 24 06/12/2024 TSH (W/RE F FT4) TSH (w/ref FT4) 1.49 uIU/m L 0.36-3 .74 normal Not Available [address] [place], [address] 06/12/2024 18:55:40 06/12/20 24 06/12/2024 MAGNE SIUM magnesium 2.0 mg/dL 1.8-2. 4 normal Not Available [address] [place], [address] 06/12/2024 18:55:39 06/12/20 24 06/12/2024 ETHYL ALCOH OL ethyl alcohol < 3.0 mg/dL <10 ETOH Refer ence Range = <10 mg/dL Legal Limit of Intox icati on is 80 mg/dL This test is inten ded only for Medic al purpo ses. Divid e resul t by 1000 to conve rt to %(w/v ) Not Available [address] [place], [address] 06/12/2024 18:55:39 06/12/20 24 06/12/2024 CREAT INE KINAS E creatine kinase 81 U/L 26-192 normal Not Available Yamil marrero [address] [place], [address] 06/12/2024 18:55:38 06/12/20 24 06/12/2024 COMPR EHENS JR METAB OLIC PANEL calcium 9.5 mg/dL 8.5-10 .1 normal Not Available [address] [place], [address] 06/12/2024 18:55:38 06/12/20 24 06/12/2024 COMPR EHENS JR METAB OLIC PANEL glucose 162 mg/dL 74-106 high Not Available Marilin oliver [address] [place], [address] 06/12/2024 18:55:38 06/12/20 24 06/12/2024 COMPR EHENS JR METAB OLIC PANEL BUN 37 mg/dL 7-18 high Not Available Marilin oliver [address] [place], [address] 06/12/2024 18:55:38 06/12/20 24 06/12/2024 COMPR EHENS JR METAB OLIC PANEL creatinine 1.7 mg/dL 0.55-1 .02 high Not Available [address] [place], [address] 06/12/2024 18:55:38 06/12/20 24 06/12/2024 COMPR EHENS [...] er-ag ed adult s. Not Available [address] [place], [address] 06/12/2024 18:55:38 06/12/20 24 06/12/2024 COMPR EHENS JR METAB OLIC PANEL total protein 7.4 g/dL 6.4-8. 2 normal Not Available [address] [place], [address] 06/12/2024 18:55:38 06/12/20 24 06/12/2024 COMPR EHENS JR METAB OLIC PANEL albumin 3.9 g/dL 3.4-5. 0 normal Not Available [address] [place], [address] 06/12/2024 18:55:38 06/12/20 24 06/12/2024 COMPR EHENS JR METAB OLIC PANEL bilirubin, total 0.52 mg/dL 0.2-1. 0 normal Not Available [address] [place], [address] 06/12/2024 18:55:38 06/12/20 24 06/12/2024 COMPR EHENS JR METAB OLIC PANEL alk phos 101 U/L 46-116 normal Not Available [address] [place], [address] 06/12/2024 18:55:38 06/12/20 24 06/12/2024 COMPR EHENS JR METAB OLIC PANEL sodium 144 mmol/ L 136-14 5 normal Not Available [address] [place], [address] 06/12/2024 18:55:38 06/12/20 24 06/12/2024 COMPR EHENS JR METAB OLIC PANEL potassium 3.6 mmol/ L 3.5-5. 1 normal Not Available [address] [place], [address] 06/12/2024 18:55:38 06/12/20 24 06/12/2024 COMPR EHENS JR METAB OLIC PANEL chloride 108 mmol/ L 98-107 high Not Available [address] [place], [address] 06/12/2024 18:55:38 06/12/20 24 06/12/2024 COMPR EHENS JR METAB OLIC PANEL CO2 23.8 mmol/ L 21.0-3 2.0 normal Not Available [address] [place], [address] 06/12/2024 18:55:38 06/12/20 24 06/12/2024 COMPR EHENS JR METAB OLIC PANEL anion gap 12.2 mmol/ L 3-11 high Not Available [address] [place], [address] 06/12/2024 18:55:38 06/12/20 24 06/12/2024 COMPR EHENS JR METAB OLIC PANEL AST 15 U/L 15-37 normal Not Available Marilin oliver [address] [place], [address] 06/12/2024 18:55:38 06/12/20 24 06/12/2024 COMPR EHENS JR METAB OLIC PANEL ALT 15 U/L 14-59 normal Not Available Marilin oliver [address] [place], [address] 06/12/2024 18:55:38 06/12/20 24 06/12/2024 COVID /FLU/ RSV PCR source Nasoph arynx Not Available [facility] n [facility] [address] [facility] [place], [address] 06/12/2024 18:35:33 06/12/20 24 06/12/2024 COVID /FLU/ [...] ry, and epide miolo gical infor oanh Rollinsi ng perfo rmed at [facility] (CLIA #[id number]) on the Cephe id GeneX pert. Not Available [address] [place], [address] 06/12/2024 18:35:33 09/21/06/12/2024 COVID /FLU/ RSV PCR influenza A PCR Negati ve negati ve Not Available [address] [place], [address] 06/12/2024 18:35:33 06/12/20 24 06/12/2024 COVID /FLU/ RSV PCR influenza B PCR Negati ve negati ve Not Available [address] [place], [address] 06/12/2024 18:35:33 06/12/20 24 06/12/2024 COVID /FLU/ RSV PCR RSV PCR Negati ve negati ve Not Available [address] [place], [address] 06/12/2024 18:35:33 06/12/20 24 06/12/2024 PTT ACTIV ATED PTT activated 22.1 sec 23.6-3 2.8 low Hepar in Thera peuti c Range for PTT = 52-84 secon ds New Hepar in Thera peuti c Range 10/28 Not Available [address] [place], [address] 06/12/2024 18:13:30 06/12/20 24 06/12/2024 PROTH ROMBI N TIME prothrombin time 9.9 sec 9.1-11 .1 normal Not Available [address] [place], [address] 06/12/2024 18:13:30 06/12/20 24 06/12/2024 PROTH ROMBI N TIME INR 1.0 0.9-1. 1 normal Recom luis a d INR thera peuti c range s for orall y admin ister ed drugs are as follo ws: -Dustin dard Inten sity 2.0 to 3.0 -High er Inten sity 3.0 to 4.5 Not Available [address] [place], [address] 06/12/2024 18:13:30 06/12/20 24 06/12/2024 VALENCIA IA ammonia < 10 umol/ L 11-32 low Not Available [address] [place], [address] 06/12/2024 18:10:29 06/12/20 24 06/12/2024 COMPL ETE BLOOD COUNT W/DIF F WBC 7.41 10_3/ uL 4.4-10 .8 normal Not Available [address] [place], [address] 06/12/2024 18:08:30 06/12/20 24 06/12/2024 COMPL ETE BLOOD COUNT W/DIF F RBC 3.82 10_6/ uL 3.93-5 .22 low Not Available [address] [place], [address] 06/12/2024 18:08:30 06/12/20 24 06/12/2024 COMPL ETE BLOOD COUNT W/DIF F HGB 11.9 g/dL 11.2-1 5.7 normal Not Available [address] [place], [address] 06/12/2024 18:08:30 06/12/20 24 06/12/2024 COMPL ETE BLOOD COUNT W/DIF F HCT 34.8 % 36.0-4 6.0 low Not Available [address] [place], [address] 06/12/2024 18:08:30 06/12/20 24 06/12/2024 COMPL ETE BLOOD COUNT W/DIF F MCV 91 fL 80-95 normal Not Available Marilin [address] [place], [address] 06/12/2024 18:08:30 06/12/20 24 06/12/2024 COMPL ETE BLOOD COUNT W/DIF F MCH 31.2 pg 27.0-3 3.0 normal Not Available [address] [place], [address] 06/12/2024 18:08:30 06/12/20 24 06/12/2024 COMPL ETE BLOOD COUNT W/DIF F MCHC 34.2 % 32.0-3 6.0 normal Not Available [address] [place], [address] 06/12/2024 18:08:30 06/12/20 24 06/12/2024 COMPL ETE BLOOD COUNT W/DIF F RDW 12.2 % 11.7-1 4.6 normal Not Available [address] [place], [address] 06/12/2024 18:08:30 06/12/20 24 06/12/2024 COMPL ETE BLOOD COUNT W/DIF F platelet count 211 10_3/ uL 130-40 0 normal Not Available [address] [place], [address] 06/12/2024 18:08:30 06/12/20 24 06/12/2024 COMPL ETE BLOOD COUNT W/DIF F MPV 10.8 fL 8.0-11 .0 normal Not Available [address] [place], [address] 06/12/2024 18:08:30 06/12/20 24 06/12/2024 COMPL ETE BLOOD COUNT W/DIF F neutrophils % 58.3 % Not Available [address] [place], [address] 06/12/2024 18:08:30 06/12/20 24 06/12/2024 COMPL ETE BLOOD COUNT W/DIF F lymphocytes % 33.3 % Not Available [address] [place], [address] 06/12/2024 18:08:30 06/12/20 24 06/12/2024 COMPL ETE BLOOD COUNT W/DIF F monocytes % 5.0 % Not Available [address] [place], [address] 06/12/2024 18:08:30 06/12/20 24 06/12/2024 COMPL ETE BLOOD COUNT W/DIF F eosinophils % 2.3 % Not Available [address] [place], [address] 06/12/2024 18:08:30 06/12/20 24 06/12/2024 COMPL ETE BLOOD COUNT W/DIF F basophils % 0.8 % Not Available [address] [place], [address] 06/12/2024 18:08:30 06/12/20 24 06/12/2024 COMPL ETE BLOOD COUNT W/DIF F immature grans % 0.3 % Not Available Yamil marrero [address] [place], [address] 06/12/2024 18:08:30 06/12/20 24 06/12/2024 COMPL ETE BLOOD COUNT W/DIF F nucleated RBC 0.0 % 0.0-0. 3 normal Not Available [address] [place], [address] 06/12/2024 18:08:30 06/12/20 24 06/12/2024 COMPL ETE BLOOD COUNT W/DIF F absolute neutrophil count 4.32 10_3/ uL 1.2-6. 7 normal Not Available [address] [place], [address] 06/12/2024 18:08:30 06/12/20 24 06/12/2024 COMPL ETE BLOOD COUNT W/DIF F absolute lymphocyte count 2.47 10_3/ uL 1.2-3. 4 normal Not Available [address] [place], [address] 06/12/2024 18:08:30 06/12/20 24 06/12/2024 COMPL ETE BLOOD COUNT W/DIF F absolute monocyte count 0.37 10_3/ uL 0.1-0. 8 normal Not Available [address] [place], [address] 06/12/2024 18:08:30 06/12/20 24 06/12/2024 COMPL ETE BLOOD COUNT W/DIF F absolute eosinophil count 0.17 10_3/ uL 0.0-0. 7 normal Not Available [address] [place], [address] 06/12/2024 18:08:30 06/12/20 24 06/12/2024 COMPL ETE BLOOD COUNT W/DIF F absolute basophil count 0.06 10_3/ uL 0.0-0. 2 normal Not Available [address] [place], [address] 06/12/2024 18:08:30 06/12/20 24 06/12/2024 VENOU S BLOOD GAS pH (venous) 7.30 7.31-7 .41 low Not Available [address] [place], [address] 06/12/2024 17:56:28 06/12/20 24 06/12/2024 VENOU S BLOOD GAS pCO2 (venous) 45 mmHg 41-51 normal Not Available P[facility] [address] [place], [address] 06/12/2024 17:56:28 06/12/20 24 06/12/2024 VENOU S BLOOD GAS pO2 (venous) 31 mmHg Not Available [address] [place], [address] 06/12/2024 17:56:28 06/12/20 24 06/12/2024 VENOU S BLOOD GAS TCO2 (venous) 21 mmol/ L 24-29 low Not Available [address] [place], [address] 06/12/2024 17:56:28 06/12/20 24 06/12/2024 VENOU S BLOOD GAS HCO3 (venous) 22 mmol/ L 23-28 low Not Available [address] [place], [address] 06/12/2024 17:56:28 06/12/20 24 06/12/2024 VENOU S BLOOD GAS BE (venous) -4 mmol/ L -2-3 low Not Available [address] [place], [address] 06/12/2024 17:56:28 06/12/20 24 06/12/2024 VENOU S BLOOD GAS O2 sat (venous) 57 % Not Available [facility] [address] [place], [address] 06/12/2024 17:56:28 06/12/20 24 06/12/2024 TSH (W/RE F FT4) TSH (w/ref FT4) 1.49 uIU/m L 0.36-3 .74 normal Not Available [address] [place], [address] 06/12/2024 18:45:41 06/12/20 24 06/12/2024 MAGNE SIUM magnesium 2.0 mg/dL 1.8-2. 4 normal Not Available [address] [place], [address] 06/12/2024 18:45:41 06/12/20 24 06/12/2024 ETHYL ALCOH OL ethyl alcohol < 3.0 mg/dL <10 ETOH Refer ence Range = <10 mg/dL Legal Limit of Intox icati on is 80 mg/dL This test is inten ded only for Medic al purpo ses. Divid e resul t by 1000 to conve rt to %(w/v ) Not Available [address] [place], [address] 06/12/2024 18:45:40 06/12/20 24 06/12/2024 CREAT INE KINAS E creatine kinase 81 U/L 26-192 normal Not Available Yamil marrero [address] [place], [address] 06/12/2024 18:45:40 06/12/20 24 06/12/2024 COMPR EHENS JR METAB OLIC PANEL calcium 9.5 mg/dL 8.5-10 .1 normal Not Available [address] [place], [address] 06/12/2024 18:45:39 06/12/20 24 06/12/2024 COMPR EHENS JR METAB OLIC PANEL glucose 162 mg/dL 74-106 high Not Available Marilin oliver [address] [place], [address] 06/12/2024 18:45:39 06/12/20 24 06/12/2024 COMPR EHENS JR METAB OLIC PANEL BUN 37 mg/dL 7-18 high Not Available Marilin oliver [address] [place], [address] 06/12/2024 18:45:39 06/12/20 24 06/12/2024 COMPR EHENS JR METAB OLIC PANEL creatinine 1.7 mg/dL 0.55-1 .02 high Not Available [address] [place], [address] 06/12/2024 18:45:39 06/12/20 24 06/12/2024 COMPR EHENS [...] er-ag ed adult s. Not Available [address] [place], [address] 06/12/2024 18:45:39 06/12/20 24 06/12/2024 COMPR EHENS JR METAB OLIC PANEL total protein 7.4 g/dL 6.4-8. 2 normal Not Available [address] [place], [address] 06/12/2024 18:45:39 06/12/20 24 06/12/2024 COMPR EHENS JR METAB OLIC PANEL albumin 3.9 g/dL 3.4-5. 0 normal Not Available [address] [place], [address] 06/12/2024 18:45:39 06/12/20 24 06/12/2024 COMPR EHENS JR METAB OLIC PANEL bilirubin, total 0.52 mg/dL 0.2-1. 0 normal Not Available [address] [place], [address] 06/12/2024 18:45:39 06/12/20 24 06/12/2024 COMPR EHENS JR METAB OLIC PANEL alk phos 101 U/L 46-116 normal Not Available [address] [place], [address] 06/12/2024 18:45:39 06/12/20 24 06/12/2024 COMPR EHENS JR METAB OLIC PANEL sodium 144 mmol/ L 136-14 5 normal Not Available [address] [place], [address] 06/12/2024 18:45:39 06/12/20 24 06/12/2024 COMPR EHENS JR METAB OLIC PANEL potassium 3.6 mmol/ L 3.5-5. 1 normal Not Available [address] [place], [address] 06/12/2024 18:45:39 06/12/20 24 06/12/2024 COMPR EHENS JR METAB OLIC PANEL chloride 108 mmol/ L 98-107 high Not Available [address] [place], [address] 06/12/2024 18:45:39 06/12/20 24 06/12/2024 COMPR EHENS JR METAB OLIC PANEL CO2 23.8 mmol/ L 21.0-3 2.0 normal Not Available [address] [place], [address] 06/12/2024 18:45:39 06/12/20 24 06/12/2024 COMPR EHENS JR METAB OLIC PANEL anion gap 12.2 mmol/ L 3-11 high Not Available [address] [place], [address] 06/12/2024 18:45:39 06/12/20 24 06/12/2024 COMPR EHENS JR METAB OLIC PANEL AST 15 U/L 15-37 normal Not Available [address] [place], [address] 06/12/2024 18:45:39 06/12/20 24 06/12/2024 COMPR EHENS JR METAB OLIC PANEL ALT 15 U/L 14-59 normal Not Available [address] [place], [address] 06/12/2024 18:45:39 06/12/20 24 06/12/2024 TSH (W/RE F FT4) TSH (w/ref FT4) 1.49 uIU/m L 0.36-3 .74 normal Not Available [address] [place], [address] 06/12/2024 18:45:36 06/12/20 24 06/12/2024 MAGNE SIUM magnesium 2.0 mg/dL 1.8-2. 4 normal Not Available [address] [place], [address] 06/12/2024 18:45:36 06/12/20 24 06/12/2024 ETHYL ALCOH OL ethyl alcohol < 3.0 mg/dL <10 ETOH Refer ence Range = <10 mg/dL Legal Limit of Intox icati on is 80 mg/dL This test is inten ded only for Medic al purpo ses. Divid e resul t by 1000 to conve rt to %(w/v ) Not Available [address] [place], [address] 06/12/2024 18:45:35 06/12/20 24 06/12/2024 CREAT INE KINAS E creatine kinase 81 U/L 26-192 normal Not Available Yamil marrero [address] [place], [address] 06/12/2024 18:45:35 06/12/20 24 06/12/2024 COMPR EHENS JR METAB OLIC PANEL calcium 9.5 mg/dL 8.5-10 .1 normal Not Available [address] [place], [address] 06/12/2024 18:45:34 06/12/20 24 06/12/2024 COMPR EHENS JR METAB OLIC PANEL glucose 162 mg/dL 74-106 high Not Available Marilin oliver [address] [place], [address] 06/12/2024 18:45:34 06/12/20 24 06/12/2024 COMPR EHENS JR METAB OLIC PANEL BUN 37 mg/dL 7-18 high Not Available Marilin oliver [address] [place], [address] 06/12/2024 18:45:34 06/12/20 24 06/12/2024 COMPR EHENS JR METAB OLIC PANEL creatinine 1.7 mg/dL 0.55-1 .02 high Not Available [address] [place], [address] 06/12/2024 18:45:34 06/12/20 24 06/12/2024 COMPR EHENS [...] er-ag ed adult s. Not Available [address] [place], [address] 06/12/2024 18:45:34 06/12/20 24 06/12/2024 COMPR EHENS JR METAB OLIC PANEL total protein 7.4 g/dL 6.4-8. 2 normal Not Available [address] [place], [address] 06/12/2024 18:45:34 06/12/20 24 06/12/2024 COMPR EHENS JR METAB OLIC PANEL albumin 3.9 g/dL 3.4-5. 0 normal Not Available [address] [place], [address] 06/12/2024 18:45:34 06/12/20 24 06/12/2024 COMPR EHENS JR METAB OLIC PANEL bilirubin, total 0.52 mg/dL 0.2-1. 0 normal Not Available [address] [place], [address] 06/12/2024 18:45:34 06/12/20 24 06/12/2024 COMPR EHENS JR METAB OLIC PANEL alk phos 101 U/L 46-116 normal Not Available [address] [place], [address] 06/12/2024 18:45:34 06/12/20 24 06/12/2024 COMPR EHENS JR METAB OLIC PANEL sodium 144 mmol/ L 136-14 5 normal Not Available [address] [place], [address] 06/12/2024 18:45:34 06/12/20 24 06/12/2024 COMPR EHENS JR METAB OLIC PANEL potassium 3.6 mmol/ L 3.5-5. 1 normal Not Available [address] [place], [address] 06/12/2024 18:45:34 06/12/20 24 06/12/2024 COMPR EHENS JR METAB OLIC PANEL chloride 108 mmol/ L 98-107 high Not Available [address] [place], [address] 06/12/2024 18:45:34 06/12/20 24 06/12/2024 COMPR EHENS JR METAB OLIC PANEL CO2 23.8 mmol/ L 21.0-3 2.0 normal Not Available [address] [place], [address] 06/12/2024 18:45:34 06/12/20 24 06/12/2024 COMPR EHENS JR METAB OLIC PANEL anion gap 12.2 mmol/ L 3-11 high Not Available [address] [place], [address] 06/12/2024 18:45:34 06/12/20 24 06/12/2024 COMPR EHENS JR METAB OLIC PANEL AST 15 U/L 15-37 normal Not Available Marilin [address] [place] [place], [address] 06/12/2024 18:45:34 06/12/20 24 06/12/2024 COMPR EHENS JR METAB OLIC PANEL ALT 15 U/L 14-59 normal Not Available Marilin [address] [place] [place], [address] 06/12/2024 18:45:34 06/12/20 24 06/12/2024 CREAT INE KINAS E creatine kinase 81 U/L 26-192 normal Not Available Yamil marrero [address] [place], [address] 06/12/2024 18:21:32 06/12/20 24 06/12/2024 COMPR EHENS JR METAB OLIC PANEL total protein 7.4 g/dL 6.4-8. 2 normal Not Available [address] [place], [address] 06/12/2024 18:21:31 06/12/20 24 06/12/2024 COMPR EHENS JR METAB OLIC PANEL bilirubin, total 0.52 mg/dL 0.2-1. 0 normal Not Available [address] [place], [address] 06/12/2024 18:21:31 06/12/20 24 06/12/2024 COMPR EHENS JR METAB OLIC PANEL sodium 144 mmol/ L 136-14 5 normal Not Available [address] [place], [address] 06/12/2024 18:21:31 06/12/20 24 06/12/2024 COMPR EHENS JR METAB OLIC PANEL potassium 3.6 mmol/ L 3.5-5. 1 normal Not Available [address] [place], [address] 06/12/2024 18:21:31 06/12/20 24 06/12/2024 COMPR EHENS JR METAB OLIC PANEL chloride 108 mmol/ L 98-107 high Not Available [address] [place], [address] 06/12/2024 18:21:31 06/12/20 24 06/12/2024 COMPR EHENS JR METAB OLIC PANEL CO2 23.8 mmol/ L 21.0-3 2.0 normal Not Available [address] [place], [address] 06/12/2024 18:21:31 06/12/20 24 06/12/2024 COMPR EHENS JR METAB OLIC PANEL anion gap 12.2 mmol/ L 3-11 high Not Available [address] [place], [address] 06/12/2024 18:21:31 06/13/20 24 06/13/2024 MAGNE SIUM magnesium 1.8 mg/dL 1.8-2. 4 normal Not Available [address] [place], [address] 06/13/2024 07:03:39 06/13/20 24 06/13/2024 COMPR EHENS JR METAB OLIC PANEL calcium 9.0 mg/dL 8.5-10 .1 normal Not Available [address] [place], [address] 06/13/2024 07:03:38 06/13/20 24 06/13/2024 COMPR EHENS JR METAB OLIC PANEL glucose 104 mg/dL 74-106 normal Not Available Marilin oliver [address] [place], [address] 06/13/2024 07:03:38 06/13/20 24 06/13/2024 COMPR EHENS JR METAB OLIC PANEL BUN 34 mg/dL 7-18 high Not Available Marilin [address] [place] [place], [address] 06/13/2024 07:03:38 06/13/20 24 06/13/2024 COMPR EHENS JR METAB OLIC PANEL creatinine 1.6 mg/dL 0.55-1 .02 high Not Available [address] [place], [address] 06/13/2024 07:03:38 06/13/20 24 06/13/2024 COMPR EHENS [...] er-ag ed adult s. Not Available [address] [place], [address] 06/13/2024 07:03:38 06/13/20 24 06/13/2024 COMPR EHENS JR METAB OLIC PANEL total protein 6.7 g/dL 6.4-8. 2 normal Not Available [address] [place], [address] 06/13/2024 07:03:38 06/13/20 24 06/13/2024 COMPR EHENS JR METAB OLIC PANEL albumin 3.5 g/dL 3.4-5. 0 normal Not Available [address] [place], [address] 06/13/2024 07:03:38 06/13/20 24 06/13/2024 COMPR EHENS RJ METAB OLIC PANEL bilirubin, total 0.40 mg/dL 0.2-1. 0 normal Not Available [address] [place], [address] 06/13/2024 07:03:38 06/13/20 24 06/13/2024 COMPR EHENS JR METAB OLIC PANEL alk phos 91 U/L 46-116 normal Not Available [address] [place], [address] 06/13/2024 07:03:38 06/13/20 24 06/13/2024 COMPR EHENS JR METAB OLIC PANEL sodium 138 mmol/ L 136-14 5 normal Not Available [address] [place], [address] 06/13/2024 07:03:38 06/13/20 24 06/13/2024 COMPR EHENS JR METAB OLIC PANEL potassium 3.4 mmol/ L 3.5-5. 1 low Not Available [address] [place], [address] 06/13/2024 07:03:38 06/13/20 24 06/13/2024 COMPR EHENS JR METAB OLIC PANEL chloride 106 mmol/ L 98-107 normal Not Available [address] [place], [address] 06/13/2024 07:03:38 06/13/20 24 06/13/2024 COMPR EHENS JR METAB OLIC PANEL CO2 22.6 mmol/ L 21.0-3 2.0 normal Not Available [address] [place], [address] 06/13/2024 07:03:38 06/13/20 24 06/13/2024 COMPR EHENS JR METAB OLIC PANEL anion gap 9.4 mmol/ L 3-11 normal Not Available [address] [place], [address] 06/13/2024 07:03:38 06/13/20 24 06/13/2024 COMPR EHENS JR METAB OLIC PANEL AST 14 U/L 15-37 low Not Available Marilin oliver [address] [place], [address] 06/13/2024 07:03:38 06/13/20 24 06/13/2024 COMPR EHENS JR METAB OLIC PANEL ALT 12 U/L 14-59 low Not Available Marilin oliver [address] [place], [address] 06/13/2024 07:03:38 06/13/20 24 06/13/2024 COMPL ETE BLOOD COUNT NO DIFF WBC 8.48 10_3/ uL 4.4-10 .8 normal Not Available [address] [place], [id number] 06/13/2024 06:47:37 06/13/20 24 06/13/2024 COMPL ETE BLOOD COUNT NO DIFF RBC 3.48 10_6/ uL 3.93-5 .22 low Not Available [address] [place], [address] 06/13/2024 06:47:37 06/13/20 24 06/13/2024 COMPL ETE BLOOD COUNT NO DIFF HGB 10.8 g/dL 11.2-1 5.7 low Not Available [address] [place], [address] 06/13/2024 06:47:37 06/13/20 24 06/13/2024 COMPL ETE BLOOD COUNT NO DIFF HCT 31.5 % 36.0-4 6.0 low Not Available [address] [place], [address] 06/13/2024 06:47:37 06/13/20 24 06/13/2024 COMPL ETE BLOOD COUNT NO DIFF MCV 91 fL 80-95 normal Not Available aMrilin oliver [address] [place], [address] 06/13/2024 06:47:37 06/13/20 24 06/13/2024 COMPL ETE BLOOD COUNT NO DIFF MCH 31.0 pg 27.0-3 3.0 normal Not Available [address] [place], [address] 06/13/2024 06:47:37 06/13/20 24 06/13/2024 COMPL ETE BLOOD COUNT NO DIFF MCHC 34.3 % 32.0-3 6.0 normal Not Available [address] [place], [address] 06/13/2024 06:47:37 06/13/20 24 06/13/2024 COMPL ETE BLOOD COUNT NO DIFF RDW 12.1 % 11.7-1 4.6 normal Not Available [address] [place], [address] 06/13/2024 06:47:37 06/13/20 24 06/13/2024 COMPL ETE BLOOD COUNT NO DIFF platelet count 200 10_3/ uL 130-40 0 normal Not Available [address] [place], [address] 06/13/2024 06:47:37 06/13/20 24 06/13/2024 COMPL ETE BLOOD COUNT NO DIFF MPV 10.5 fL 8.0-11 .0 normal Not Available [address] [place], [address] 06/13/2024 06:47:37 06/16/20 24 06/16/2024 COMPL ETE BLOOD COUNT W/DIF F WBC 10.78 10_3/ uL 4.4-10 .8 normal Not Available [address] [place], [address] 06/16/2024 15:02:01 06/16/20 24 06/16/2024 COMPL ETE BLOOD COUNT W/DIF F RBC 3.86 10_6/ uL 3.93-5 .22 low Not Available [address] [place] [place], [address] 06/16/2024 15:02:01 06/16/20 24 06/16/2024 COMPL ETE BLOOD COUNT W/DIF F HGB 11.8 g/dL 11.2-1 5.7 normal Not Available [address] [place], [address] 06/16/2024 15:02:01 06/16/20 24 06/16/2024 COMPL ETE BLOOD COUNT W/DIF F HCT 35.1 % 36.0-4 6.0 low Not Available [address] [place], [address] 06/16/2024 15:02:01 06/16/20 24 06/16/2024 COMPL ETE BLOOD COUNT W/DIF F MCV 91 fL 80-95 normal Not Available [address] [place], [address] 06/16/2024 15:02:01 06/16/20 24 06/16/2024 COMPL ETE BLOOD COUNT W/DIF F MCH 30.6 pg 27.0-3 3.0 normal Not Available [address] [place], [address] 06/16/2024 15:02:01 06/16/20 24 06/16/2024 COMPL ETE BLOOD COUNT W/DIF F MCHC 33.6 % 32.0-3 6.0 normal Not Available [address] [place], [address] 06/16/2024 15:02:01 06/16/20 24 06/16/2024 COMPL ETE BLOOD COUNT W/DIF F RDW 12.5 % 11.7-1 4.6 normal Not Available [address] [place], [address] 06/16/2024 15:02:01 06/16/20 24 06/16/2024 COMPL ETE BLOOD COUNT W/DIF F platelet count 256 10_3/ uL 130-40 0 normal Not Available [address] [place], [address] 06/16/2024 15:02:01 06/16/2006/16/2024 COMPL ETE BLOOD COUNT W/DIF F MPV 10.2 fL 8.0-11 .0 normal Not Available [address] [place], [address] 06/16/2024 15:02:01 06/16/20 24 06/16/2024 COMPL ETE BLOOD COUNT W/DIF F neutrophils % 61.1 % Not Available [address] [place], [address] 06/16/2024 15:02:01 06/16/20 24 06/16/2024 COMPL ETE BLOOD COUNT W/DIF F lymphocytes % 29.4 % Not Available [address] [place], [address] 06/16/2024 15:02:01 06/16/20 24 06/16/2024 COMPL ETE BLOOD COUNT W/DIF F monocytes % 6.9 % Not Available [address] [place], [address] 06/16/2024 15:02:01 06/16/20 24 06/16/2024 COMPL ETE BLOOD COUNT W/DIF F eosinophils % 1.5 % Not Available [address] [place], [address] 06/16/2024 15:02:01 06/16/20 24 06/16/2024 COMPL ETE BLOOD COUNT W/DIF F basophils % 0.6 % Not Available [address] [place], [address] 06/16/2024 15:02:01 06/16/20 24 06/16/2024 COMPL ETE BLOOD COUNT W/DIF F immature grans % 0.5 % Not Available [address] [place], [address] 06/16/2024 15:02:01 06/16/20 24 06/16/2024 COMPL ETE BLOOD COUNT W/DIF F nucleated RBC 0.0 % 0.0-0. 3 normal Not Available [address] [place], [address] 06/16/2024 15:02:01 06/16/20 24 06/16/2024 COMPL ETE BLOOD COUNT W/DIF F absolute neutrophil count 6.59 10_3/ uL 1.2-6. 7 normal Not Available [address] [place], [address] 06/16/2024 15:02:01 06/16/20 24 06/16/2024 COMPL ETE BLOOD COUNT W/DIF F absolute lymphocyte count 3.17 10_3/ uL 1.2-3. 4 normal Not Available [address] [place], [address] 06/16/2024 15:02:01 06/16/20 24 06/16/2024 COMPL ETE BLOOD COUNT W/DIF F absolute monocyte count 0.74 10_3/ uL 0.1-0. 8 normal Not Available [address] [place], [address] 06/16/2024 15:02:01 06/16/20 24 06/16/2024 COMPL ETE BLOOD COUNT W/DIF F absolute eosinophil count 0.16 10_3/ uL 0.0-0. 7 normal Not Available [address] [place], [address] 06/16/2024 15:02:01 06/16/20 24 06/16/2024 COMPL ETE BLOOD COUNT W/DIF F absolute basophil count 0.07 10_3/ uL 0.0-0. 2 normal Not Available [address] [place], [address] 06/16/2024 15:02:01 06/16/20 24 06/16/2024 BASIC METAB OLIC PANEL calcium 9.1 mg/dL 8.5-10 .1 normal Not Available [address] [place], [address] 06/16/2024 14:45:56 06/16/2006/16/2024 BASIC METAB OLIC PANEL glucose 126 mg/dL 74-106 high Not Available Marilin oliver [address] [place], [address] 06/16/2024 14:45:56 06/16/2006/16/2024 BASIC METAB OLIC PANEL BUN 26 mg/dL 7-18 high Not Available Marilin oliver [address] [place], [address] 06/16/2024 14:45:56 0906/16/2024 BASIC METAB OLIC PANEL creatinine 1.7 mg/dL 0.55-1 .02 high Not Available [address] [place], [address] 06/16/2024 14:45:56 06/16/2006/16/2024 BASIC METAB OLIC PANEL [...] er-ag ed adult s. Not Available [address] [place], [address] 06/16/2024 14:45:56 06/16/2006/16/2024 BASIC METAB OLIC PANEL sodium 139 mmol/ L 136-14 5 normal Not Available [address] [place], [address] 06/16/2024 14:45:56 06/16/2006/16/2024 BASIC METAB OLIC PANEL potassium 3.4 mmol/ L 3.5-5. 1 low Not Available [address] [place], [address] 06/16/2024 14:45:56 06/16/2006/16/2024 BASIC METAB OLIC PANEL chloride 104 mmol/ L 98-107 normal Not Available [address] [place], [address] 06/16/2024 14:45:56 06/16/2006/16/2024 BASIC METAB OLIC PANEL CO2 25.3 mmol/ L 21.0-3 2.0 normal Not Available [address] [place], [address] 06/16/2024 14:45:56 06/16/2006/16/2024 BASIC METAB OLIC PANEL anion gap 9.7 mmol/ L 3-11 normal Not Available [address] [place], [address] 06/16/2024 14:45:56 06/17/2006/17/2024 BASIC METAB OLIC PANEL calcium 9.0 mg/dL 8.5-10 .1 normal Not Available [address] [place], [address] 06/17/2024 11:32:16 06/17/2006/17/2024 BASIC METAB OLIC PANEL glucose 116 mg/dL 74-106 high Not Available Marilin oliver [address] [place], [address] 06/17/2024 11:32:16 06/17/2006/17/2024 BASIC METAB OLIC PANEL BUN 21 mg/dL 7-18 high Not Available Marilin oliver [address] [place], [address] 06/17/2024 11:32:16 06/17/20 24 06/17/2024 BASIC METAB OLIC PANEL creatinine 1.5 mg/dL 0.55-1 .02 high Not Available [address] [place], [address] 06/17/2024 11:32:16 06/17/2006/17/2024 BASIC METAB OLIC PANEL [...] er-ag ed adult s. Not Available [address] [place], [address] 06/17/2024 11:32:16 06/17/2006/17/2024 BASIC METAB OLIC PANEL sodium 139 mmol/ L 136-14 5 normal Not Available [address] [place], [address] 06/17/2024 11:32:16 06/17/20 24 06/17/2024 BASIC METAB OLIC PANEL potassium 3.3 mmol/ L 3.5-5. 1 low Not Available [address] [place], [address] 06/17/2024 11:32:16 06/17/20 24 06/17/2024 BASIC METAB OLIC PANEL chloride 107 mmol/ L 98-107 normal Not Available [address] [place], [address] 06/17/2024 11:32:16 06/17/20 24 06/17/2024 BASIC METAB OLIC PANEL CO2 21.5 mmol/ L 21.0-3 2.0 normal Not Available [address] [place], [address] 06/17/2024 11:32:16 06/17/20 24 06/17/2024 BASIC METAB OLIC PANEL anion gap 10.5 mmol/ L 3-11 normal Not Available [address] [place], [address] 06/17/2024 11:32:16 06/17/20 24 06/17/2024 HEMOG LOBIN [...] nt 1):S1 3-s28 . Not Available [address] [place], [address] 06/17/2024 06:25:25 06/17/20 24 06/17/2024 BASIC METAB OLIC PANEL calcium 9.0 mg/dL 8.5-10 .1 normal Not Available [address] [place], [address] 06/17/2024 05:57:23 06/17/20 24 06/17/2024 BASIC METAB OLIC PANEL glucose 107 mg/dL 74-106 high Not Available Marilin oliver [address] [place], [address] 06/17/2024 05:57:23 06/17/20 24 06/17/2024 BASIC METAB OLIC PANEL BUN 23 mg/dL 7-18 high Not Available Marilin oliver [address] [place], [address] 06/17/2024 05:57:23 06/17/20 24 06/17/2024 BASIC METAB OLIC PANEL creatinine 1.5 mg/dL 0.55-1 .02 high Not Available [address] [place], [address] 06/17/2024 05:57:23 06/17/20 24 06/17/2024 BASIC METAB [...] er-ag ed adult s. Not Available [address] [place], [address] 06/17/2024 05:57:23 06/17/20 24 06/17/2024 BASIC METAB OLIC PANEL sodium 141 mmol/ L 136-14 5 normal Not Available [address] [place], [address] 06/17/2024 05:57:23 06/17/20 24 06/17/2024 BASIC METAB OLIC PANEL potassium 2.9 mmol/ L 3.5-5. 1 critical low Criti shea value repor liz to and readb ack from FÉLIX CHU (RN), [place] at 0554 06/17 by LAB.I DOTTIE Not Available [address] [place], [address] 06/17/2024 05:57:23 06/17/20 24 06/17/2024 BASIC METAB OLIC PANEL chloride 109 mmol/ L 98-107 high Not Available [address] [place], [address] 06/17/2024 05:57:23 06/17/20 24 06/17/2024 BASIC METAB OLIC PANEL CO2 20.7 mmol/ L 21.0-3 2.0 low Not Available [address] [place], [address] 06/17/2024 05:57:23 06/17/20 24 06/17/2024 BASIC METAB OLIC PANEL anion gap 11.3 mmol/ L 3-11 high Not Available [address] [place], [address] 06/17/2024 05:57:23 06/17/20 24 06/17/2024 COMPL ETE BLOOD COUNT W/DIF F WBC 8.86 10_3/ uL 4.4-10 .8 normal Not Available [address] [place], [address] 06/17/2024 05:44:23 06/17/20 24 06/17/2024 COMPL ETE BLOOD COUNT W/DIF F RBC 3.36 10_6/ uL 3.93-5 .22 low Not Available [address] [place], [address] 06/17/2024 05:44:23 06/17/20 24 06/17/2024 COMPL ETE BLOOD COUNT W/DIF F HGB 10.4 g/dL 11.2-1 5.7 low Not Available [address] [place], [address] 06/17/2024 05:44:23 06/17/20 24 06/17/2024 COMPL ETE BLOOD COUNT W/DIF F HCT 29.8 % 36.0-4 6.0 low Not Available [address] [place], [address] 06/17/2024 05:44:23 06/17/20 24 06/17/2024 COMPL ETE BLOOD COUNT W/DIF F MCV 89 fL 80-95 normal Not Available [address] [place], [address] 06/17/2024 05:44:23 06/17/20 24 06/17/2024 COMPL ETE BLOOD COUNT W/DIF F MCH 31.0 pg 27.0-3 3.0 normal Not Available [address] [place], [address] 06/17/2024 05:44:23 06/17/20 24 06/17/2024 COMPL ETE BLOOD COUNT W/DIF F MCHC 34.9 % 32.0-3 6.0 normal Not Available [address] [place], [address] 06/17/2024 05:44:23 06/17/20 24 06/17/2024 COMPL ETE BLOOD COUNT W/DIF F RDW 12.3 % 11.7-1 4.6 normal Not Available [address] [place], [address] 06/17/2024 05:44:23 06/17/20 24 06/17/2024 COMPL ETE BLOOD COUNT W/DIF F platelet count 219 10_3/ uL 130-40 0 normal Not Available [address] [place], [address] 06/17/2024 05:44:23 06/17/20 24 06/17/2024 COMPL ETE BLOOD COUNT W/DIF F MPV 10.5 fL 8.0-11 .0 normal Not Available [address] [place], [address] 06/17/2024 05:44:23 06/17/20 24 06/17/2024 COMPL ETE BLOOD COUNT W/DIF F neutrophils % 51.9 % Not Available [address] [place], [address] 06/17/2024 05:44:23 06/17/20 24 06/17/2024 COMPL ETE BLOOD COUNT W/DIF F lymphocytes % 37.2 % Not Available [address] [place], [address] 06/17/2024 05:44:23 06/17/20 24 06/17/2024 COMPL ETE BLOOD COUNT W/DIF F monocytes % 7.4 % Not Available [address] [place], [address] 06/17/2024 05:44:23 06/17/20 24 06/17/2024 COMPL ETE BLOOD COUNT W/DIF F eosinophils % 2.7 % Not Available [address] [place], [address] 06/17/2024 05:44:23 06/17/20 24 06/17/2024 COMPL ETE BLOOD COUNT W/DIF F basophils % 0.6 % Not Available [address] [place], [address] 06/17/2024 05:44:23 06/17/20 24 06/17/2024 COMPL ETE BLOOD COUNT W/DIF F immature grans % 0.2 % Not Available [address] [place], [address] 06/17/2024 05:44:23 06/17/20 24 06/17/2024 COMPL ETE BLOOD COUNT W/DIF F nucleated RBC 0.0 % 0.0-0. 3 normal Not Available [address] [place], [address] 06/17/2024 05:44:23 06/17/20 24 06/17/2024 COMPL ETE BLOOD COUNT W/DIF F absolute neutrophil count 4.59 10_3/ uL 1.2-6. 7 normal Not Available [address] [place], [address] 06/17/2024 05:44:23 06/17/20 24 06/17/2024 COMPL ETE BLOOD COUNT W/DIF F absolute lymphocyte count 3.30 10_3/ uL 1.2-3. 4 normal Not Available [address] [place], [address] 06/17/2024 05:44:23 06/17/20 24 06/17/2024 COMPL ETE BLOOD COUNT W/DIF F absolute monocyte count 0.66 10_3/ uL 0.1-0. 8 normal Not Available [address] [place], [address] 06/17/2024 05:44:23 06/17/20 24 06/17/2024 COMPL ETE BLOOD COUNT W/DIF F absolute eosinophil count 0.24 10_3/ uL 0.0-0. 7 normal Not Available [address] [place], [address] 06/17/2024 05:44:23 06/17/20 24 06/17/2024 COMPL ETE BLOOD COUNT W/DIF F absolute basophil count 0.05 10_3/ uL 0.0-0. 2 normal Not Available [address] [place], [address] 06/17/2024 05:44:23 07/02/20 24 07/02/2024 BASIC METAB OLIC PANEL calcium 9.3 mg/dL 8.5-10 .1 normal Not Available [address] [place], [address] 07/02/2024 16:18:07 07/02/20 24 07/02/2024 BASIC METAB OLIC PANEL glucose 110 mg/dL 74-106 high Not Available Marilin [address] [place], [address] 07/02/2024 16:18:07 07/02/20 24 07/02/2024 BASIC METAB OLIC PANEL BUN 40 mg/dL 7-18 high Not Available Marilin oliver [address] [place], [address] 07/02/2024 16:18:07 07/02/20 24 07/02/2024 BASIC METAB OLIC PANEL creatinine 1.6 mg/dL 0.55-1 .02 high Not Available [address] [place], [address] 07/02/2024 16:18:07 07/02/20 24 07/02/2024 BASIC METAB [...] er-ag ed adult s. Not Available [address] [place], [address] 07/02/2024 16:18:07 07/02/20 24 07/02/2024 BASIC METAB OLIC PANEL sodium 147 mmol/ L 136-14 5 high Not Available [address] [place], [address] 07/02/2024 16:18:07 07/02/20 24 07/02/2024 BASIC METAB OLIC PANEL potassium 3.9 mmol/ L 3.5-5. 1 normal Not Available [address] [place], [address] 07/02/2024 16:18:07 07/02/20 24 07/02/2024 BASIC METAB OLIC PANEL chloride 116 mmol/ L 98-107 high Not Available [address] [place], [address] 07/02/2024 16:18:07 07/02/20 24 07/02/2024 BASIC METAB OLIC PANEL CO2 17.4 mmol/ L 21.0-3 2.0 low Not Available [address] [place], [address] 07/02/2024 16:18:07 07/02/20 24 07/02/2024 BASIC METAB OLIC PANEL anion gap 13.6 mmol/ L 3-11 high Not Available [address] [place], [address] 07/02/2024 16:18:07 07/09/20 24 07/09/2024 COMPL ETE BLOOD COUNT W/DIF F WBC 10.14 10_3/ uL 4.4-10 .8 normal Not Available [address] [place], [address] 07/09/2024 16:14:29 07/09/20 24 07/09/2024 COMPL ETE BLOOD COUNT W/DIF F RBC 3.43 10_6/ uL 3.93-5 .22 low Not Available [address] [place], [address] 07/09/2024 16:14:29 07/09/20 24 07/09/2024 COMPL ETE BLOOD COUNT W/DIF F HGB 10.4 g/dL 11.2-1 5.7 low Not Available [address] [place], [address] 07/09/2024 16:14:29 07/09/2007/09/2024 COMPL ETE BLOOD COUNT W/DIF F HCT 32.0 % 36.0-4 6.0 low Not Available [address] [place], [address] 07/09/2024 16:14:29 07/09/2007/09/2024 COMPL ETE BLOOD COUNT W/DIF F MCV 93 fL 80-95 normal Not Available [address] [place], [address] 07/09/2024 16:14:29 07/09/2007/09/2024 COMPL ETE BLOOD COUNT W/DIF F MCH 30.3 pg 27.0-3 3.0 normal Not Available [address] [place], [address] 07/09/2024 16:14:29 07/09/2007/09/2024 COMPL ETE BLOOD COUNT W/DIF F MCHC 32.5 % 32.0-3 6.0 normal Not Available [address] [place], [address] 07/09/2024 16:14:29 07/09/2007/09/2024 COMPL ETE BLOOD COUNT W/DIF F RDW 13.6 % 11.7-1 4.6 normal Not Available [address] [place], [address] 07/09/2024 16:14:29 07/09/2007/09/2024 COMPL ETE BLOOD COUNT W/DIF F platelet count 286 10_3/ uL 130-40 0 normal Not Available [address] [place], [address] 07/09/2024 16:14:29 07/09/2007/09/2024 COMPL ETE BLOOD COUNT W/DIF F MPV 11.3 fL 8.0-11 .0 high Not Available [address] [place], [address] 07/09/2024 16:14:29 07/09/2007/09/2024 COMPL ETE BLOOD COUNT W/DIF F neutrophils % 75.1 % Not Available [address] [place], [address] 07/09/2024 16:14:29 07/09/2007/09/2024 COMPL ETE BLOOD COUNT W/DIF F lymphocytes % 16.1 % Not Available [address] [place], [address] 07/09/2024 16:14:29 07/09/2007/09/2024 COMPL ETE BLOOD COUNT W/DIF F monocytes % 6.5 % Not Available [address] [place], [address] 07/09/2024 16:14:29 07/09/2007/09/2024 COMPL ETE BLOOD COUNT W/DIF F eosinophils % 1.3 % Not Available [address] [place], [address] 07/09/2024 16:14:29 07/09/2007/09/2024 COMPL ETE BLOOD COUNT W/DIF F basophils % 0.6 % Not Available [address] [place], [address] 07/09/2024 16:14:29 07/09/2007/09/2024 COMPL ETE BLOOD COUNT W/DIF F immature grans % 0.4 % Not Available [address] [place], [address] 07/09/2024 16:14:29 07/09/2007/09/2024 COMPL ETE BLOOD COUNT W/DIF F nucleated RBC 0.0 % 0.0-0. 3 normal Not Available [address] [place], [address] 07/09/2024 16:14:29 07/09/20 24 07/09/2024 COMPL ETE BLOOD COUNT W/DIF F absolute neutrophil count 7.62 10_3/ uL 1.2-6. 7 high Not Available [address] [place], [address] 07/09/2024 16:14:29 07/09/20 24 07/09/2024 COMPL ETE BLOOD COUNT W/DIF F absolute lymphocyte count 1.63 10_3/ uL 1.2-3. 4 normal Not Available [address] [place], [address] 07/09/2024 16:14:29 07/09/20 24 07/09/2024 COMPL ETE BLOOD COUNT W/DIF F absolute monocyte count 0.66 10_3/ uL 0.1-0. 8 normal Not Available [address] [place], [address] 07/09/2024 16:14:29 07/09/20 24 07/09/2024 COMPL ETE BLOOD COUNT W/DIF F absolute eosinophil count 0.13 10_3/ uL 0.0-0. 7 normal Not Available [address] [place], [address] 07/09/2024 16:14:29 07/09/20 24 07/09/2024 COMPL ETE BLOOD COUNT W/DIF F absolute basophil count 0.06 10_3/ uL 0.0-0. 2 normal Not Available [address] [place], [address] 07/09/2024 16:14:29 07/09/2007/09/2024 BASIC METAB OLIC PANEL calcium 9.2 mg/dL 8.5-10 .1 normal Not Available [address] [place], [address] 07/09/2024 16:20:26 07/09/2007/09/2024 BASIC METAB OLIC PANEL glucose 228 mg/dL 74-106 high Not Available Marilin oliver [address] [place], [address] 07/09/2024 16:20:26 07/09/2007/09/2024 BASIC METAB OLIC PANEL BUN 45 mg/dL 7-18 high Not Available Marilin oliver [address] [place], [address] 07/09/2024 16:20:26 07/09/2007/09/2024 BASIC METAB OLIC PANEL creatinine 1.9 mg/dL 0.55-1 .02 high Not Available [address] [place], [address] 07/09/2024 16:20:26 07/09/2007/09/2024 BASIC METAB OLIC PANEL [...] er-ag ed adult s. Not Available [address] [place], [address] 07/09/2024 16:20:26 07/09/2007/09/2024 BASIC METAB OLIC PANEL sodium 147 mmol/ L 136-14 5 high Not Available [address] [place], [address] 07/09/2024 16:20:26 07/09/2007/09/2024 BASIC METAB OLIC PANEL potassium 3.4 mmol/ L 3.5-5. 1 low Not Available [address] [place], [address] 07/09/2024 16:20:26 07/09/20 24 07/09/2024 BASIC METAB OLIC PANEL chloride 112 mmol/ L 98-107 high Not Available [address] [place], [address] 07/09/2024 16:20:26 07/09/20 24 07/09/2024 BASIC METAB OLIC PANEL CO2 19.6 mmol/ L 21.0-3 2.0 low Not Available [address] [place], [address] 07/09/2024 16:20:26 07/09/2007/09/2024 BASIC METAB OLIC PANEL anion gap 15.4 mmol/ L 3-11 high Not Available [address] [facility] [place], [address] 07/09/2024 16:20:26 07/09/2007/09/2024 MAGNE SIUM magnesium 1.9 mg/dL 1.8-2. 4 normal Not Available [address] [facility] [place], [address] 07/09/2024 16:20:27 07/12/2007/12/2024 URINA LYSIS color Yellow yellow Not Available Marilin oliver [address] [facility] [place], [address] 07/12/2024 20:18:48 07/12/2007/12/2024 URINA LYSIS clarity Clear clear Not Available Marilin oliver [address] [place], [address] 07/12/2024 20:18:48 07/12/2007/12/2024 URINA LYSIS specific gravity 1.020 1.005- 1.025 normal Not Available [address] [facility] [place], [address] 07/12/2024 20:18:48 07/12/2007/12/2024 URINA LYSIS pH 5.5 5-8 normal Not Available Marilin oliver [address] [place], [address] 07/12/2024 20:18:48 07/12/2007/12/2024 URINA LYSIS leukocyte esterase Negati ve negati ve Not Available [address] [place], [address] 07/12/2024 20:18:48 07/12/2007/12/2024 URINA LYSIS nitrite Negati ve negati ve Not Available [address] [place], [address] 07/12/2024 20:18:48 07/12/2007/12/2024 URINA LYSIS protein Trace mg/dL neg-tr erendira Not Available [address] [place], [address] 07/12/2024 20:18:48 07/12/2007/12/2024 URINA LYSIS glucose Negati ve mg/dL negati ve Not Available [address] [place], [address] 07/12/2024 20:18:48 07/12/2007/12/2024 URINA LYSIS ketones Negati ve mg/dL negati ve Not Available [address] [place], [address] 07/12/2024 20:18:48 07/12/2007/12/2024 URINA LYSIS urobilinogen 0.2 mg/dL up to 0.2 Not Available [address] [place], [address] 07/12/2024 20:18:48 07/12/2007/12/2024 URINA LYSIS bilirubin Negati ve negati ve Not Available [address] [place], [address] 07/12/2024 20:18:48 07/12/2007/12/2024 URINA LYSIS blood Negati ve negati ve Not Available [address] [place], [address] 07/12/2024 20:18:48 07/12/2007/13/2024 URINE CULTU RE urine culture Urine Cultu re Day 1 Resul t NO GROWT H 24 HOURS Not Available [address] [place], [address] 07/13/2024 12:29:16 07/12/20 24 07/14/2024 URINE CULTU RE urine culture Urine Cultu re APPEA DEBBIE Gram Posit jr Haylee COLON Y COUNT Not Available [address] [place], [address] 07/14/2024 08:16:51 07/12/2007/14/2024 URINE CULTU RE urine culture colon ies/m L <10,0 00 Day 1 Resul t NO GROWT H 24 HOURS Day 2 Resul t ISOLA RAISA BELOW O:GPF (ORGA NISM ID: [id number]) - GRAM POSIT JR HAYLEE Urine Cultu re (ORGA NISM ID: [id number]) - COLON Y COUNT (ORGA NISM ID: [id number]) - <10,0 00 Not Available [address] [place], [address] 07/14/2024 08:16:51 07/15/2007/15/2024 COMPL ETE BLOOD COUNT W/DIF F WBC 17.56 10_3/ uL 4.4-10 .8 high Not Available [address] [place], [address] 07/15/2024 16:03:58 07/15/2007/15/2024 COMPL ETE BLOOD COUNT W/DIF F RBC 3.73 10_6/ uL 3.93-5 .22 low Not Available [address] [place], [address] 07/15/2024 16:03:58 07/15/2007/15/2024 COMPL ETE BLOOD COUNT W/DIF F HGB 11.3 g/dL 11.2-1 5.7 normal Not Available [address] [place], [address] 07/15/2024 16:03:58 07/15/2007/15/2024 COMPL ETE BLOOD COUNT W/DIF F HCT 32.4 % 36.0-4 6.0 low Not Available [address] [place], [address] 07/15/2024 16:03:58 07/15/2007/15/2024 COMPL ETE BLOOD COUNT W/DIF F MCV 87 fL 80-95 normal Not Available Marilin oliver [address] [place], [address] 07/15/2024 16:03:58 07/15/2007/15/2024 COMPL ETE BLOOD COUNT W/DIF F MCH 30.3 pg 27.0-3 3.0 normal Not Available [address] [place], [address] 07/15/2024 16:03:58 07/15/2007/15/2024 COMPL ETE BLOOD COUNT W/DIF F MCHC 34.9 % 32.0-3 6.0 normal Not Available [address] [place], [address] 07/15/2024 16:03:58 07/15/2007/15/2024 COMPL ETE BLOOD COUNT W/DIF F RDW 13.1 % 11.7-1 4.6 normal Not Available [address] [place], [address] 07/15/2024 16:03:58 07/15/2007/15/2024 COMPL ETE BLOOD COUNT W/DIF F platelet count 351 10_3/ uL 130-40 0 normal Not Available [address] [place], [address] 07/15/2024 16:03:58 07/15/2007/15/2024 COMPL ETE BLOOD COUNT W/DIF F MPV 11.0 fL 8.0-11 .0 normal Not Available [address] [place], [address] 07/15/2024 16:03:58 07/15/2007/15/2024 COMPL ETE BLOOD COUNT W/DIF F neutrophils % 62.1 % Not Available [address] [place], [address] 07/15/2024 16:03:58 07/15/2007/15/2024 COMPL ETE BLOOD COUNT W/DIF F lymphocytes % 27.7 % Not Available [address] [place], [address] 07/15/2024 16:03:58 07/15/2007/15/2024 COMPL ETE BLOOD COUNT W/DIF F monocytes % 5.9 % Not Available [address], [address] 07/15/2024 16:03:58 07/15/2007/15/2024 COMPL ETE BLOOD COUNT W/DIF F eosinophils % 2.1 % Not Available [address] [place], [address] 07/15/2024 16:03:58 07/15/2007/15/2024 COMPL ETE BLOOD COUNT W/DIF F basophils % 0.7 % Not Available [address] [place], [address] 07/15/2024 16:03:58 07/15/2007/15/2024 COMPL ETE BLOOD COUNT W/DIF F immature grans % 1.5 % Not Available [address] [place], [address] 07/15/2024 16:03:58 07/15/2007/15/2024 COMPL ETE BLOOD COUNT W/DIF F nucleated RBC 0.0 % 0.0-0. 3 normal Not Available [address] [place], [address] 07/15/2024 16:03:58 07/15/2007/15/2024 COMPL ETE BLOOD COUNT W/DIF F absolute neutrophil count 10.90 10_3/ uL 1.2-6. 7 high Not Available [address] [place], [address] 07/15/2024 16:03:58 07/15/2007/15/2024 COMPL ETE BLOOD COUNT W/DIF F absolute lymphocyte count 4.86 10_3/ uL 1.2-3. 4 high Not Available [address] [place], [address] 07/15/2024 16:03:58 07/15/2007/15/2024 COMPL ETE BLOOD COUNT W/DIF F absolute monocyte count 1.04 10_3/ uL 0.1-0. 8 high Not Available [address] [place], [address] 07/15/2024 16:03:58 07/15/2007/15/2024 COMPL ETE BLOOD COUNT W/DIF F absolute eosinophil count 0.37 10_3/ uL 0.0-0. 7 normal Not Available [address] [place], [address] 07/15/2024 16:03:58 07/15/20 24 07/15/2024 COMPL ETE BLOOD COUNT W/DIF F absolute basophil count 0.12 10_3/ uL 0.0-0. 2 normal Not Available [address] [place], [address] 07/15/2024 16:03:58 07/15/2007/15/2024 OCCUL T BLOOD STOOL GUAIA C(1SP ) occult blood stool guaiac(1sp) Occul t Blood Stool Guaia c(1sp ) STOOL OCCUL T BLOOD #1 NEGAT JR Not Available [address] [place], [address] 07/15/2024 17:04:06 07/16/2007/16/2024 TROPO LOPEZ I troponin I 23 NG/L <or=51 An eleva liz/a bnorm al tropo lopez value above 51ng/ L for Femal e and above 76ng/ L for Male( which is the 99th perce ntile cutof f of a zoya marquez hy refer ence popul ation ) must [...] Bioti n (Aline min B7). Not Available [address] [place], [address] 07/16/2024 17:40:34 07/16/2007/16/2024 TROPO LOPEZ I troponin [...] Bioti n (Aline min B7). Not Available [address] [place], [address] 07/16/2024 16:33:29 07/16/2007/18/2024 URINE CULTU RE urine culture Urine Cultu re ACTIO N ID AND SUSCE PTIBI LITY TO FOLLO W APPEA DEBBIE Gram Negat jr Eugene APPEA DEBBIE Gram Negat jr Eugene COLON Y COUNT Not Available [address] [place], [address] 07/18/2024 07:55:55 07/16/2007/18/2024 URINE CULTU RE urine [...] zobac tarango S <=4 F Not Available [address] [place], [address] 07/18/2024 07:55:55 07/16/2007/16/2024 MICRO SCOPI C FINDI NGS WBC >50 hpf 0-5 abnormal Not Available [address] [place], [address] 07/16/2024 16:16:24 07/16/20 24 07/16/2024 MICRO SCOPI C FINDI NGS RBC 3-5 hpf 0-2 abnormal Not Available [address] [place], [address] 07/16/2024 16:16:24 07/16/2007/16/2024 MICRO SCOPI C FINDI NGS epithelial cells Few hpf negati ve Not Available [address] [place], [address] 07/16/2024 16:16:24 07/16/2007/16/2024 MICRO SCOPI C FINDI NGS other cells Negati ve negati ve Not Available [address] [place], [address] 07/16/2024 16:16:24 07/16/2007/16/2024 MICRO SCOPI C FINDI NGS bacteria Packed hpf negati ve Not Available [address] [place], [address] 07/16/2024 16:16:24 07/16/2007/16/2024 MICRO SCOPI C FINDI NGS crystals Negati ve hpf negati ve Not Available [address] [place], [address] 07/16/2024 16:16:24 07/16/2007/16/2024 MICRO SCOPI C FINDI NGS mucus Negati ve negati ve Not Available [address] [place], [address] 07/16/2024 16:16:24 07/16/2007/16/2024 MICRO SCOPI C FINDI NGS casts Negati ve lpf negati ve Not Available [address] [place], [address] 07/16/2024 16:16:24 07/16/2007/16/2024 MICRO SCOPI C FINDI NGS C S indicated? Yes Not Available [address] [place], [address] 07/16/2024 16:16:24 07/16/2007/16/2024 URINA LYSIS color Yellow yellow Not Available Marilin oliver [address] [place], [address] 07/16/2024 16:16:23 07/16/2007/16/2024 URINA LYSIS clarity Sl Cloudy clear Not Available Tiffani pina [address] [facility] [place], [address] 07/16/2024 16:16:23 07/16/2007/16/2024 URINA LYSIS specific gravity 1.010 1.005- 1.025 normal Not Available [address] [facility] [place], [address] 07/16/2024 16:16:23 07/16/2007/16/2024 URINA LYSIS pH 6.0 5-8 normal Not Available Marilin oliver [address] [facility] [place], [address] 07/16/2024 16:16:23 07/16/2007/16/2024 URINA LYSIS leukocyte esterase Large negati ve abnormal Not Available [address] [facility] [place], [address] 07/16/2024 16:16:23 07/16/20 24 07/16/2024 URINA LYSIS nitrite Positi ve negati ve abnormal Not Available [address] [facility] [place], [address] 07/16/2024 16:16:23 07/16/2007/16/2024 URINA LYSIS protein Trace mg/dL neg-tr erendira Not Available [address] [facility] [place], [address] 07/16/2024 16:16:23 07/16/20 24 07/16/2024 URINA LYSIS glucose Negati ve mg/dL negati ve Not Available [address] [facility] [place], [address] 07/16/2024 16:16:23 07/16/20 24 07/16/2024 URINA LYSIS ketones Negati ve mg/dL negati ve Not Available [address] [place], [address] 07/16/2024 16:16:23 07/16/2007/16/2024 URINA LYSIS urobilinogen 0.2 mg/dL up to 0.2 Not Available [address] [place], [address] 07/16/2024 16:16:23 07/16/2007/16/2024 URINA LYSIS bilirubin Negati ve negati ve Not Available [address] [place], [address] 07/16/2024 16:16:23 07/16/2007/16/2024 URINA LYSIS blood Trace- lysed negati ve abnormal Not Available [address] [place], [address] 07/16/2024 16:16:23 07/16/2007/16/2024 URINA LYSIS color Yellow yellow Not Available Marilin oliver [address] [place], [address] 07/16/2024 16:10:18 07/16/2007/16/2024 URINA LYSIS clarity Sl Cloudy clear Not Available Tiffani pina [address] [place], [address] 07/16/2024 16:10:18 07/16/2007/16/2024 URINA LYSIS specific gravity 1.010 1.005- 1.025 normal Not Available [address] [place], [address] 07/16/2024 16:10:18 07/16/2007/16/2024 URINA LYSIS pH 6.0 5-8 normal Not Available Marilin oliver [address] [place], [address] 07/16/2024 16:10:18 07/16/2007/16/2024 URINA LYSIS leukocyte esterase Large negati ve abnormal Not Available [address] [place], [address] 07/16/2024 16:10:18 07/16/2007/16/2024 URINA LYSIS nitrite Positi ve negati ve abnormal Not Available [address] [place], [address] 07/16/2024 16:10:18 07/16/2007/16/2024 URINA LYSIS protein Trace mg/dL neg-tr erendira Not Available [address] [place], [address] 07/16/2024 16:10:18 07/16/2007/16/2024 URINA LYSIS glucose Negati ve mg/dL negati ve Not Available [address] [place], [address] 07/16/2024 16:10:18 07/16/2007/16/2024 URINA LYSIS ketones Negati ve mg/dL negati ve Not Available [address] [place], [address] 07/16/2024 16:10:18 07/16/2007/16/2024 URINA LYSIS urobilinogen 0.2 mg/dL up to 0.2 Not Available [address] [place], [address] 07/16/2024 16:10:18 07/16/2007/16/2024 URINA LYSIS bilirubin Negati ve negati ve Not Available [address] [place], [address] 07/16/2024 16:10:18 07/16/2007/16/2024 URINA LYSIS blood Trace- lysed negati ve abnormal Not Available [address] [place], [address] 07/16/2024 16:10:18 07/16/2007/17/2024 URINE CULTU RE urine culture Urine Cultu re ACTIO N ID AND SUSCE PTIBI LITY TO FOLLO W APPEA DEBBIE Gram Negat jr Eugene COLON Y COUNT Not Available [address] [place], [address] 07/17/2024 11:54:46 07/16/2007/17/2024 URINE CULTU RE urine culture colon ies/m L >100, 000 Day 1 Resul t ISOLA RAISA BELOW O:GNR (ORGA NISM ID: [id number]) - GRAM NEGAT JR EUGENE Urine Cultu re (ORGA NISM ID: 1.1) - COLON Y COUNT (ORGA NISM ID: 1.1) - >100, 000 Not Available [address] [place], [address] 07/17/2024 11:54:46 07/16/2007/16/2024 TROPO LOPEZ I troponin [...] Bioti n (Aline min B7). Not Available [address] [place], [address] 07/16/2024 14:34:00 07/16/2007/16/2024 MAGNE SIUM magnesium 2.1 mg/dL 1.8-2. 4 normal Not Available [address] [facility] [place], [address] 07/16/2024 14:34:00 07/16/2007/16/2024 COMPR EHENS JR METAB OLIC PANEL calcium 9.5 mg/dL 8.5-10 .1 normal Not Available [address] [facility] [place], [address] 07/16/2024 14:33:59 07/16/2007/16/2024 COMPR EHENS JR METAB OLIC PANEL glucose 142 mg/dL 74-106 high Not Available Marilin oliver [address] [facility] [place], [address] 07/16/2024 14:33:59 07/16/2007/16/2024 COMPR EHENS JR METAB OLIC PANEL BUN 35 mg/dL 7-18 high Not Available Marilin oliver [address] [place], [address] 07/16/2024 14:33:59 07/16/2007/16/2024 COMPR EHENS JR METAB OLIC PANEL creatinine 2.1 mg/dL 0.55-1 .02 high Not Available [address] [place], [address] 07/16/2024 14:33:59 07/16/2007/16/2024 COMPR EHENS JR METAB [...] er-ag ed adult s. Not Available [address] [place], [address] 07/16/2024 14:33:59 07/16/2007/16/2024 COMPR EHENS JR METAB OLIC PANEL total protein 7.4 g/dL 6.4-8. 2 normal Not Available [address] [place], [address] 07/16/2024 14:33:59 07/16/2007/16/2024 COMPR EHENS JR METAB OLIC PANEL albumin 3.4 g/dL 3.4-5. 0 normal Not Available [address] [place], [address] 07/16/2024 14:33:59 07/16/2007/16/2024 COMPR EHENS JR METAB OLIC PANEL bilirubin, total 0.41 mg/dL 0.2-1. 0 normal Not Available [address] [place], [address] 07/16/2024 14:33:59 07/16/2007/16/2024 COMPR EHENS JR METAB OLIC PANEL alk phos 112 U/L 46-116 normal Not Available [address] [place], [address] 07/16/2024 14:33:59 07/16/2007/16/2024 COMPR EHENS JR METAB OLIC PANEL sodium 141 mmol/ L 136-14 5 normal Not Available [address] [place], [address] 07/16/2024 14:33:59 07/16/2007/16/2024 COMPR EHENS JR METAB OLIC PANEL potassium 2.6 mmol/ L 3.5-5. 1 critical low Criti shea value MAGGIE VILLAGRAN repor liz to and readb ack from [facility] at 1430 07/16 by LAB.B ONC Not Available [address] [place], [address] 07/16/2024 14:33:59 07/16/2007/16/2024 COMPR EHENS JR METAB OLIC PANEL chloride 105 mmol/ L 98-107 normal Not Available [address] [place], [address] 07/16/2024 14:33:59 07/16/2007/16/2024 COMPR EHENS JR METAB OLIC PANEL CO2 22.6 mmol/ L 21.0-3 2.0 normal Not Available [address] [place], [address] 07/16/2024 14:33:59 07/16/2007/16/2024 COMPR EHENS JR METAB OLIC PANEL anion gap 13.4 mmol/ L 3-11 high Not Available [address] [place], [address] 07/16/2024 14:33:59 07/16/2007/16/2024 COMPR EHENS JR METAB OLIC PANEL AST 29 U/L 15-37 normal Not Available Marilin [address] [place], [address] 07/16/2024 14:33:59 07/16/2007/16/2024 COMPR EHENS JR METAB OLIC PANEL ALT 26 U/L 14-59 normal Not Available Marilin oliver [address] [place], [address] 07/16/2024 14:33:59 07/17/20 24 07/17/2024 MAGNE SIUM magnesium 2.0 mg/dL 1.8-2. 4 normal Not Available [address] [place], [address] 07/17/2024 12:10:48 07/17/2007/17/2024 LAB ADD ON TEST lab add on test DONE Not Available Yamil marrero [address] [place], [address] 07/17/2024 11:46:45 07/17/2007/17/2024 BASIC METAB OLIC PANEL calcium 8.8 mg/dL 8.5-10 .1 normal Not Available [address] [place], [address] 07/17/2024 06:55:30 07/17/2007/17/2024 BASIC METAB OLIC PANEL glucose 95 mg/dL 74-106 normal Not Available Marilin oliver [address] [place], [address] 07/17/2024 06:55:30 07/17/2007/17/2024 BASIC METAB OLIC PANEL BUN 30 mg/dL 7-18 high Not Available Marilin oliver [address] [place], [address] 07/17/2024 06:55:30 07/17/2007/17/2024 BASIC METAB OLIC PANEL creatinine 1.8 mg/dL 0.55-1 .02 high Not Available [address] [place], [address] 07/17/2024 06:55:30 07/17/2007/17/2024 BASIC METAB OLIC PANEL [...] er-ag ed adult s. Not Available [address] [place], [address] 07/17/2024 06:55:30 07/17/2007/17/2024 BASIC METAB OLIC PANEL sodium 146 mmol/ L 136-14 5 high Not Available [address] [place], [address] 07/17/2024 06:55:30 07/17/2007/17/2024 BASIC METAB OLIC PANEL potassium 3.1 mmol/ L 3.5-5. 1 low Not Available [address] [place], [address] 07/17/2024 06:55:30 07/17/2007/17/2024 BASIC METAB OLIC PANEL chloride 111 mmol/ L 98-107 high Not Available [address] [place], [address] 07/17/2024 06:55:30 07/17/2007/17/2024 BASIC METAB OLIC PANEL CO2 23.7 mmol/ L 21.0-3 2.0 normal Not Available [address] [place], [address] 07/17/2024 06:55:30 07/17/2007/17/2024 BASIC METAB OLIC PANEL anion gap 11.3 mmol/ L 3-11 high Not Available [address] [place], [address] 07/17/2024 06:55:30 07/17/2007/17/2024 COMPL ETE BLOOD COUNT W/DIF F WBC 14.09 10_3/ uL 4.4-10 .8 high Not Available [address] [place], [address] 07/17/2024 06:46:28 07/17/2007/17/2024 COMPL ETE BLOOD COUNT W/DIF F RBC 2.98 10_6/ uL 3.93-5 .22 low Not Available [address] [place], [address] 07/17/2024 06:46:28 07/17/2007/17/2024 COMPL ETE BLOOD COUNT W/DIF F HGB 9.2 g/dL 11.2-1 5.7 low Not Available [address] [place], [address] 07/17/2024 06:46:28 07/17/2007/17/2024 COMPL ETE BLOOD COUNT W/DIF F HCT 25.7 % 36.0-4 6.0 low Not Available [address] [place], [address] 07/17/2024 06:46:28 07/17/2007/17/2024 COMPL ETE BLOOD COUNT W/DIF F MCV 86 fL 80-95 normal Not Available [address] [place], [address] 07/17/2024 06:46:28 07/17/2007/17/2024 COMPL ETE BLOOD COUNT W/DIF F MCH 30.9 pg 27.0-3 3.0 normal Not Available [address] [place], [address] 07/17/2024 06:46:28 07/17/2007/17/2024 COMPL ETE BLOOD COUNT W/DIF F MCHC 35.8 % 32.0-3 6.0 normal Not Available [address] [place], [address] 07/17/2024 06:46:28 07/17/2007/17/2024 COMPL ETE BLOOD COUNT W/DIF F RDW 13.2 % 11.7-1 4.6 normal Not Available [address] [place], [address] 07/17/2024 06:46:28 07/17/2007/17/2024 COMPL ETE BLOOD COUNT W/DIF F platelet count 307 10_3/ uL 130-40 0 normal Not Available [address] [place], [address] 07/17/2024 06:46:28 07/17/2007/17/2024 COMPL ETE BLOOD COUNT W/DIF F MPV 10.5 fL 8.0-11 .0 normal Not Available [address] [place], [address] 07/17/2024 06:46:28 07/17/2007/17/2024 COMPL ETE BLOOD COUNT W/DIF F neutrophils % 62.3 % Not Available [address] [place], [address] 07/17/2024 06:46:28 07/17/2007/17/2024 COMPL ETE BLOOD COUNT W/DIF F lymphocytes % 27.3 % Not Available [address] [place], [address] 07/17/2024 06:46:28 07/17/2007/17/2024 COMPL ETE BLOOD COUNT W/DIF F monocytes % 6.4 % Not Available [address] [place], [address] 07/17/2024 06:46:28 07/17/2007/17/2024 COMPL ETE BLOOD COUNT W/DIF F eosinophils % 2.0 % Not Available [address] [place], [address] 07/17/2024 06:46:28 07/17/2007/17/2024 COMPL ETE BLOOD COUNT W/DIF F basophils % 0.4 % Not Available [address] [place], [address] 07/17/2024 06:46:28 07/17/2007/17/2024 COMPL ETE BLOOD COUNT W/DIF F immature grans % 1.6 % Not Available [address] [place], [address] 07/17/2024 06:46:28 07/17/2007/17/2024 COMPL ETE BLOOD COUNT W/DIF F nucleated RBC 0.0 % 0.0-0. 3 normal Not Available [address] [place], [address] 07/17/2024 06:46:28 07/17/2007/17/2024 COMPL ETE BLOOD COUNT W/DIF F absolute neutrophil count 8.78 10_3/ uL 1.2-6. 7 high Not Available [address] [place], [address] 07/17/2024 06:46:28 07/17/2007/17/2024 COMPL ETE BLOOD COUNT W/DIF F absolute lymphocyte count 3.85 10_3/ uL 1.2-3. 4 high Not Available [address] [place], [address] 07/17/2024 06:46:28 07/17/2007/17/2024 COMPL ETE BLOOD COUNT W/DIF F absolute monocyte count 0.90 10_3/ uL 0.1-0. 8 high Not Available [address] [place], [address] 07/17/2024 06:46:28 07/17/2007/17/2024 COMPL ETE BLOOD COUNT W/DIF F absolute eosinophil count 0.28 10_3/ uL 0.0-0. 7 normal Not Available [address] [place], [address] 07/17/2024 06:46:28 07/17/2007/17/2024 COMPL ETE BLOOD COUNT W/DIF F absolute basophil count 0.06 10_3/ uL 0.0-0. 2 normal Not Available [address] [place], [address] 07/17/2024 06:46:28 07/18/2007/18/2024 C DIFF PCR C diff PCR Negati ve negati ve Not Available [address] [place], [address] 07/18/2024 19:47:40 07/18/2007/18/2024 HEMOG LOBIN /ADI TOCRI T HGB 9.9 g/dL 11.2-1 5.7 low Not Available [address] [place], [address] 07/18/2024 14:31:24 07/18/2007/18/2024 HEMOG LOBIN /ADI TOCRI T HCT 28.5 % 36.0-4 6.0 low Not Available [address] [place], [address] 07/18/2024 14:31:24 07/19/2007/19/2024 BASIC METAB OLIC PANEL calcium 8.7 mg/dL 8.5-10 .1 normal Not Available [address] [place], [address] 07/19/2024 06:38:26 07/19/2007/19/2024 BASIC METAB OLIC PANEL glucose 110 mg/dL 74-106 high Not Available Marilin oliver [address] [place], [address] 07/19/2024 06:38:26 07/19/2007/19/2024 BASIC METAB OLIC PANEL BUN 18 mg/dL 7-18 normal Not Available Marilin oliver [address] [place], [address] 07/19/2024 06:38:26 07/19/2007/19/2024 BASIC METAB OLIC PANEL creatinine 1.7 mg/dL 0.55-1 .02 high Not Available [address] [place], [address] 07/19/2024 06:38:26 07/19/2007/19/2024 BASIC METAB OLIC PANEL [...] er-ag ed adult s. Not Available [address] [place], [address] 07/19/2024 06:38:26 07/19/2007/19/2024 BASIC METAB OLIC PANEL sodium 146 mmol/ L 136-14 5 high Not Available [address] [place], [address] 07/19/2024 06:38:26 07/19/2007/19/2024 BASIC METAB OLIC PANEL potassium 3.3 mmol/ L 3.5-5. 1 low Not Available [address] [place], [address] 07/19/2024 06:38:26 07/19/2007/19/2024 BASIC METAB OLIC PANEL chloride 112 mmol/ L 98-107 high Not Available [address] [place], [address] 07/19/2024 06:38:26 07/19/2007/19/2024 BASIC METAB OLIC PANEL CO2 22.9 mmol/ L 21.0-3 2.0 normal Not Available [address] [place], [address] 07/19/2024 06:38:26 07/19/2007/19/2024 BASIC METAB OLIC PANEL anion gap 11.1 mmol/ L 3-11 high Not Available [address] [place], [address] 07/19/2024 06:38:26 07/19/2007/19/2024 COMPL ETE BLOOD COUNT W/DIF F WBC 13.86 10_3/ uL 4.4-10 .8 high Not Available [address] [place], [address] 07/19/2024 06:26:26 07/19/2007/19/2024 COMPL ETE BLOOD COUNT W/DIF F RBC 3.15 10_6/ uL 3.93-5 .22 low Not Available [address] [place], [address] 07/19/2024 06:26:26 07/19/2007/19/2024 COMPL ETE BLOOD COUNT W/DIF F HGB 9.5 g/dL 11.2-1 5.7 low Not Available [address] [place], [address] 07/19/2024 06:26:26 07/19/20 24 07/19/2024 COMPL ETE BLOOD COUNT W/DIF F HCT 28.0 % 36.0-4 6.0 low Not Available [address] [place], [address] 07/19/2024 06:26:26 07/19/20 24 07/19/2024 COMPL ETE BLOOD COUNT W/DIF F MCV 89 fL 80-95 normal Not Available [address] [place], [address] 07/19/2024 06:26:26 07/19/20 24 07/19/2024 COMPL ETE BLOOD COUNT W/DIF F MCH 30.2 pg 27.0-3 3.0 normal Not Available [address] [place], [address] 07/19/2024 06:26:26 07/19/20 24 07/19/2024 COMPL ETE BLOOD COUNT W/DIF F MCHC 33.9 % 32.0-3 6.0 normal Not Available [address] [place], [address] 07/19/2024 06:26:26 07/19/20 24 07/19/2024 COMPL ETE BLOOD COUNT W/DIF F RDW 13.6 % 11.7-1 4.6 normal Not Available [address] [place], [address] 07/19/2024 06:26:26 07/19/20 24 07/19/2024 COMPL ETE BLOOD COUNT W/DIF F platelet count 308 10_3/ uL 130-40 0 normal Not Available [address] [place], [address] 07/19/2024 06:26:26 07/19/20 24 07/19/2024 COMPL ETE BLOOD COUNT W/DIF F MPV 10.3 fL 8.0-11 .0 normal Not Available [address] [place], [address] 07/19/2024 06:26:26 07/19/2007/19/2024 COMPL ETE BLOOD COUNT W/DIF F neutrophils % 52.9 % Not Available [address] [place], [address] 07/19/2024 06:26:26 07/19/20 24 07/19/2024 COMPL ETE BLOOD COUNT W/DIF F lymphocytes % 33.9 % Not Available [address] [facility] [place], [address] 07/19/2024 06:26:26 07/19/2007/19/2024 COMPL ETE BLOOD COUNT W/DIF F monocytes % 7.4 % Not Available [address] [place], [address] 07/19/2024 06:26:26 07/19/2007/19/2024 COMPL ETE BLOOD COUNT W/DIF F eosinophils % 3.0 % Not Available [address] [facility] [place], [address] 07/19/2024 06:26:26 07/19/20 24 07/19/2024 COMPL ETE BLOOD COUNT W/DIF F basophils % 0.6 % Not Available [address] [place], [address] 07/19/2024 06:26:26 07/19/20 24 07/19/2024 COMPL ETE BLOOD COUNT W/DIF F immature grans % 2.2 % Not Available [address] [facility] [place], [address] 07/19/2024 06:26:26 07/19/20 24 07/19/2024 COMPL ETE BLOOD COUNT W/DIF F nucleated RBC 0.0 % 0.0-0. 3 normal Not Available [address] [place], [address] 07/19/2024 06:26:26 07/19/20 24 07/19/2024 COMPL ETE BLOOD COUNT W/DIF F absolute neutrophil count 7.33 10_3/ uL 1.2-6. 7 high Not Available [address] [place], [address] 07/19/2024 06:26:26 07/19/20 24 07/19/2024 COMPL ETE BLOOD COUNT W/DIF F absolute lymphocyte count 4.70 10_3/ uL 1.2-3. 4 high Not Available [address] [place], [address] 07/19/2024 06:26:26 07/19/20 24 07/19/2024 COMPL ETE BLOOD COUNT W/DIF F absolute monocyte count 1.03 10_3/ uL 0.1-0. 8 high Not Available [address] [place], [address] 07/19/2024 06:26:26 07/19/20 24 07/19/2024 COMPL ETE BLOOD COUNT W/DIF F absolute eosinophil count 0.42 10_3/ uL 0.0-0. 7 normal Not Available [address] [place], [address] 07/19/2024 06:26:26 07/19/20 24 07/19/2024 COMPL ETE BLOOD COUNT W/DIF F absolute basophil count 0.08 10_3/ uL 0.0-0. 2 normal Not Available [address] [place], [address] 07/19/2024 06:26:26 07/20/20 24 07/20/2024 COMPL ETE BLOOD COUNT W/DIF F WBC 15.12 10_3/ uL 4.4-10 .8 high Not Available [address] [place], [address] 07/20/2024 16:04:47 07/20/2007/20/2024 COMPL ETE BLOOD COUNT W/DIF F RBC 3.51 10_6/ uL 3.93-5 .22 low Not Available [address] [place], [address] 07/20/2024 16:04:47 07/20/20 24 07/20/2024 COMPL ETE BLOOD COUNT W/DIF F HGB 10.7 g/dL 11.2-1 5.7 low Not Available [address] [place], [address] 07/20/2024 16:04:47 07/20/2007/20/2024 COMPL ETE BLOOD COUNT W/DIF F HCT 31.5 % 36.0-4 6.0 low Not Available [address] [place], [address] 07/20/2024 16:04:47 07/20/2007/20/2024 COMPL ETE BLOOD COUNT W/DIF F MCV 90 fL 80-95 normal Not Available [address] [place], [address] 07/20/2024 16:04:47 07/20/2007/20/2024 COMPL ETE BLOOD COUNT W/DIF F MCH 30.5 pg 27.0-3 3.0 normal Not Available [address] [place], [address] 07/20/2024 16:04:47 07/20/2007/20/2024 COMPL ETE BLOOD COUNT W/DIF F MCHC 34.0 % 32.0-3 6.0 normal Not Available [address] [place], [address] 07/20/2024 16:04:47 07/20/2007/20/2024 COMPL ETE BLOOD COUNT W/DIF F RDW 14.0 % 11.7-1 4.6 normal Not Available [address] [place], [address] 07/20/2024 16:04:47 07/20/2007/20/2024 COMPL ETE BLOOD COUNT W/DIF F platelet count 363 10_3/ uL 130-40 0 normal Not Available [address] [place], [address] 07/20/2024 16:04:47 07/20/2007/20/2024 COMPL ETE BLOOD COUNT W/DIF F MPV 11.2 fL 8.0-11 .0 high Not Available [address] [place], [address] 07/20/2024 16:04:47 07/20/2007/20/2024 COMPL ETE BLOOD COUNT W/DIF F neutrophils % 60.5 % Not Available [address] [place], [address] 07/20/2024 16:04:47 07/20/2007/20/2024 COMPL ETE BLOOD COUNT W/DIF F lymphocytes % 27.4 % Not Available [address] [place], [address] 07/20/2024 16:04:47 07/20/2007/20/2024 COMPL ETE BLOOD COUNT W/DIF F monocytes % 5.8 % Not Available [address] [place], [address] 07/20/2024 16:04:47 07/20/2007/20/2024 COMPL ETE BLOOD COUNT W/DIF F eosinophils % 3.4 % Not Available [address] [facility] [place], [address] 07/20/2024 16:04:47 07/20/2007/20/2024 COMPL ETE BLOOD COUNT W/DIF F basophils % 0.8 % Not Available [address] [place], [address] 07/20/2024 16:04:47 07/20/2007/20/2024 COMPL ETE BLOOD COUNT W/DIF F immature grans % 2.1 % Not Available [address] [place], [address] 07/20/2024 16:04:47 07/20/2007/20/2024 COMPL ETE BLOOD COUNT W/DIF F nucleated RBC 0.0 % 0.0-0. 3 normal Not Available [address] [place], [address] 07/20/2024 16:04:47 07/20/2007/20/2024 COMPL ETE BLOOD COUNT W/DIF F absolute neutrophil count 9.15 10_3/ uL 1.2-6. 7 high Not Available [address] [place], [address] 07/20/2024 16:04:47 07/20/20 24 07/20/2024 COMPL ETE BLOOD COUNT W/DIF F absolute lymphocyte count 4.14 10_3/ uL 1.2-3. 4 high Not Available [address] [place], [address] 07/20/2024 16:04:47 07/20/20 24 07/20/2024 COMPL ETE BLOOD COUNT W/DIF F absolute monocyte count 0.88 10_3/ uL 0.1-0. 8 high Not Available [address] [place], [address] 07/20/2024 16:04:47 07/20/20 24 07/20/2024 COMPL ETE BLOOD COUNT W/DIF F absolute eosinophil count 0.51 10_3/ uL 0.0-0. 7 normal Not Available [address] [place], [address] 07/20/2024 16:04:47 07/20/20 24 07/20/2024 COMPL ETE BLOOD COUNT W/DIF F absolute basophil count 0.12 10_3/ uL 0.0-0. 2 normal Not Available [address] [place], [address] 07/20/2024 16:04:47 07/20/20 24 07/20/2024 BASIC METAB OLIC PANEL calcium 9.5 mg/dL 8.5-10 .1 normal Not Available [address] [place], [address] 07/20/2024 17:26:06 07/20/2007/20/2024 BASIC METAB OLIC PANEL glucose 126 mg/dL 74-106 high Not Available Marilin oliver [address] [place], [address] 07/20/2024 17:26:06 07/20/2007/20/2024 BASIC METAB OLIC PANEL BUN 15 mg/dL 7-18 normal Not Available Marilin oliver [address] [place], [address] 07/20/2024 17:26:06 07/20/20 24 07/20/2024 BASIC METAB OLIC PANEL creatinine 1.5 mg/dL 0.55-1 .02 high Not Available [address] [place], [address] 07/20/2024 17:26:06 07/20/20 24 07/20/2024 BASIC METAB OLIC PANEL estimated GFR 36.34 mL/min /1.73M 2 The eGFR is calcu [...] er-ag ed adult s. Not Available [address] [place], [address] 07/20/2024 17:26:06 07/20/20 24 07/20/2024 BASIC METAB OLIC PANEL sodium 145 mmol/ L 136-14 5 normal Not Available [address] [place], [address] 07/20/2024 17:26:06 07/20/2007/20/2024 BASIC METAB OLIC PANEL potassium 3.6 mmol/ L 3.5-5. 1 normal Not Available [address] [place], [address] 07/20/2024 17:26:06 07/20/20 24 07/20/2024 BASIC METAB OLIC PANEL chloride 109 mmol/ L 98-107 high Not Available [address] [place], [address] 07/20/2024 17:26:06 07/20/2007/20/2024 BASIC METAB OLIC PANEL CO2 23.6 mmol/ L 21.0-3 2.0 normal Not Available [address] [place], [address] 07/20/2024 17:26:06 07/20/20 24 07/20/2024 BASIC METAB OLIC PANEL anion gap 12.4 mmol/ L 3-11 high Not Available [address] [place], [address] 07/20/2024 17:26:06 07/20/20 24 07/20/2024 MAGNE SIUM magnesium 2.0 mg/dL 1.8-2. 4 normal Not Available [address] [place], [address] 07/20/2024 17:26:07 07/22/20 24 07/22/2024 OCCUL T BLOOD STOOL GUAIA C(1SP ) occult blood stool guaiac(1sp) Occul t Blood Stool Guaia c(1sp ) STOOL OCCUL T BLOOD #1 NEGAT JR Not Available [address] [place], [address] 07/22/2024 16:18:22 07/27/20 24 07/27/2024 COMPL ETE BLOOD COUNT W/DIF F WBC 10.46 10_3/ uL 4.4-10 .8 normal Not Available [address] [place], [address] 07/27/2024 17:41:05 07/27/20 24 07/27/2024 COMPL ETE BLOOD COUNT W/DIF F RBC 3.43 10_6/ uL 3.93-5 .22 low Not Available [address] [place], [address] 07/27/2024 17:41:05 07/27/20 24 07/27/2024 COMPL ETE BLOOD COUNT W/DIF F HGB 10.5 g/dL 11.2-1 5.7 low Not Available [address] [place], [address] 07/27/2024 17:41:05 07/27/20 24 07/27/2024 COMPL ETE BLOOD COUNT W/DIF F HCT 32.2 % 36.0-4 6.0 low Not Available [address] [place], [address] 07/27/2024 17:41:05 07/27/20 24 07/27/2024 COMPL ETE BLOOD COUNT W/DIF F MCV 94 fL 80-95 normal Not Available Marilin oliver [address] [place], [address] 07/27/2024 17:41:05 07/27/20 24 07/27/2024 COMPL ETE BLOOD COUNT W/DIF F MCH 30.6 pg 27.0-3 3.0 normal Not Available [address] [place], [address] 07/27/2024 17:41:05 07/27/20 24 07/27/2024 COMPL ETE BLOOD COUNT W/DIF F MCHC 32.6 % 32.0-3 6.0 normal Not Available [address] [place], [address] 07/27/2024 17:41:05 07/27/20 24 07/27/2024 COMPL ETE BLOOD COUNT W/DIF F RDW 14.2 % 11.7-1 4.6 normal Not Available [address] [place], [address] 07/27/2024 17:41:05 07/27/20 24 07/27/2024 COMPL ETE BLOOD COUNT W/DIF F platelet count 298 10_3/ uL 130-40 0 normal Not Available [address] [place], [address] 07/27/2024 17:41:05 07/27/20 24 07/27/2024 COMPL ETE BLOOD COUNT W/DIF F MPV 10.9 fL 8.0-11 .0 normal Not Available [address] [place], [address] 07/27/2024 17:41:05 07/27/20 24 07/27/2024 COMPL ETE BLOOD COUNT W/DIF F neutrophils % 69.4 % Not Available [facility] [address] [place], [address] 07/27/2024 17:41:05 07/27/20 24 07/27/2024 COMPL ETE BLOOD COUNT W/DIF F lymphocytes % 21.8 % Not Available [facility] [address] [place], [address] 07/27/2024 17:41:05 07/27/20 24 07/27/2024 COMPL ETE BLOOD COUNT W/DIF F monocytes % 5.3 % Not Available [address] [place], [address] 07/27/2024 17:41:05 07/27/20 24 07/27/2024 COMPL ETE BLOOD COUNT W/DIF F eosinophils % 2.1 % Not Available [address] [place], [address] 07/27/2024 17:41:05 07/27/20 24 07/27/2024 COMPL ETE BLOOD COUNT W/DIF F basophils % 1.0 % Not Available [address] [place], [address] 07/27/2024 17:41:05 07/27/20 24 07/27/2024 COMPL ETE BLOOD COUNT W/DIF F immature grans % 0.4 % Not Available [address] [place], [address] 07/27/2024 17:41:05 07/27/20 24 07/27/2024 COMPL ETE BLOOD COUNT W/DIF F nucleated RBC 0.0 % 0.0-0. 3 normal Not Available [address] [place], [address] 07/27/2024 17:41:05 07/27/20 24 07/27/2024 COMPL ETE BLOOD COUNT W/DIF F absolute neutrophil count 7.27 10_3/ uL 1.2-6. 7 high Not Available [address] [place], [address] 07/27/2024 17:41:05 07/27/20 24 07/27/2024 COMPL ETE BLOOD COUNT W/DIF F absolute lymphocyte count 2.28 10_3/ uL 1.2-3. 4 normal Not Available [address] [place], [address] 07/27/2024 17:41:05 07/27/20 24 07/27/2024 COMPL ETE BLOOD COUNT W/DIF F absolute monocyte count 0.55 10_3/ uL 0.1-0. 8 normal Not Available [address] [place], [address] 07/27/2024 17:41:05 07/27/20 24 07/27/2024 COMPL ETE BLOOD COUNT W/DIF F absolute eosinophil count 0.22 10_3/ uL 0.0-0. 7 normal Not Available [address] [place], [address] 07/27/2024 17:41:05 07/27/20 24 07/27/2024 COMPL ETE BLOOD COUNT W/DIF F absolute basophil count 0.10 10_3/ uL 0.0-0. 2 normal Not Available [address] [place], [address] 07/27/2024 17:41:05 07/27/20 24 07/27/2024 URINA LYSIS color Yellow yellow Not Available Marilin oliver [address] [place], [address] 07/27/2024 17:58:08 07/27/20 24 07/27/2024 URINA LYSIS clarity Clear clear Not Available Marilin oliver [address] [place], [address] 07/27/2024 17:58:08 07/27/20 24 07/27/2024 URINA LYSIS specific gravity 1.010 1.005- 1.025 normal Not Available [address] [place], [address] 07/27/2024 17:58:08 07/27/20 24 07/27/2024 URINA LYSIS pH 6.0 5-8 normal Not Available Marilin oliver [address] [place], [address] 07/27/2024 17:58:08 07/27/20 24 07/27/2024 URINA LYSIS leukocyte esterase Negati ve negati ve Not Available [address] [place], [address] 07/27/2024 17:58:08 07/27/20 24 07/27/2024 URINA LYSIS nitrite Negati ve negati ve Not Available [address] [place], [address] 07/27/2024 17:58:08 07/27/20 24 07/27/2024 URINA LYSIS protein Negati ve mg/dL neg-tr erendira Not Available [address] [place], [address] 07/27/2024 17:58:08 07/27/20 24 07/27/2024 URINA LYSIS glucose Negati ve mg/dL negati ve Not Available [address] [place], [address] 07/27/2024 17:58:08 07/27/20 24 07/27/2024 URINA LYSIS ketones Negati ve mg/dL negati ve Not Available [address] [place], [address] 07/27/2024 17:58:08 07/27/20 24 07/27/2024 URINA LYSIS urobilinogen 0.2 mg/dL up to 0.2 Not Available [address] [place], [address] 07/27/2024 17:58:08 07/27/20 24 07/27/2024 URINA LYSIS bilirubin Negati ve negati ve Not Available [address] [place], [address] 07/27/2024 17:58:08 07/27/2007/27/2024 URINA LYSIS blood Negati ve negati ve Not Available [address] [place], [address] 07/27/2024 17:58:08 07/27/20 24 07/27/2024 BASIC METAB OLIC PANEL calcium 9.1 mg/dL 8.5-10 .1 normal Not Available [address] [place], [address] 07/27/2024 17:59:09 07/27/20 24 07/27/2024 BASIC METAB OLIC PANEL glucose 114 mg/dL 74-106 high Not Available Marilin oliver [address] [place], [address] 07/27/2024 17:59:09 07/27/20 24 07/27/2024 BASIC METAB OLIC PANEL BUN 26 mg/dL 7-18 high Not Available Marilin oliver [address] [place], [address] 07/27/2024 17:59:09 07/27/20 24 07/27/2024 BASIC METAB OLIC PANEL creatinine 1.7 mg/dL 0.55-1 .02 high Not Available [address] [place], [address] 07/27/2024 17:59:09 07/27/20 24 07/27/2024 BASIC METAB OLIC PANEL estimated GFR 31.27 [...] er-ag ed adult s. Not Available [address] [place], [address] 07/27/2024 17:59:09 07/27/20 24 07/27/2024 BASIC METAB OLIC PANEL sodium 143 mmol/ L 136-14 5 normal Not Available [address] [place], [address] 07/27/2024 17:59:09 07/27/20 24 07/27/2024 BASIC METAB OLIC PANEL potassium 3.6 mmol/ L 3.5-5. 1 normal Not Available [address] [place], [address] 07/27/2024 17:59:09 07/27/20 24 07/27/2024 BASIC METAB OLIC PANEL chloride 109 mmol/ L 98-107 high Not Available [address] [place], [address] 07/27/2024 17:59:09 07/27/20 24 07/27/2024 BASIC METAB OLIC PANEL CO2 24.0 mmol/ L 21.0-3 2.0 normal Not Available [address] [place], [address] 07/27/2024 17:59:09 07/27/20 24 07/27/2024 BASIC METAB OLIC PANEL anion gap 10.0 mmol/ L 3-11 normal Not Available [address] [place], [address] 07/27/2024 17:59:09 07/27/20 24 07/27/2024 MAGNE SIUM magnesium 1.9 mg/dL 1.8-2. 4 normal Not Available [address] [place], [address] 07/27/2024 17:59:10 08/27/20 24 08/27/2024 BASIC METAB OLIC PANEL calcium 9.4 mg/dL 8.5-10 .1 normal Not Available [facility] [address] [place] [address] [place], [address], 08/27/2024 17:39:44 08/27/20 24 08/27/2024 BASIC METAB OLIC PANEL glucose 167 mg/dL 74-106 high Not Available [facility] [address] [place] [address] [place], [address], 08/27/2024 17:39:44 08/27/20 24 08/27/2024 BASIC METAB OLIC PANEL BUN 40 mg/dL 7-18 high Not Available [facility] [address] [place] [address] [place], [address], 08/27/2024 17:39:44 08/27/20 24 08/27/2024 BASIC METAB OLIC PANEL creatinine 1.5 mg/dL 0.55-1 .02 high Not Available [facility] [address] [place] [address] [place], [address], 08/27/2024 17:39:44 08/27/20 24 08/27/2024 BASIC METAB OLIC PANEL estimated GFR 36.34 mL/min /1.73M 2 The eGFR is calcu [...] young er-ag ed adult s. Not Available [facility] [address] [place] [address] [place], [address], 08/27/2024 17:39:44 08/27/20 24 08/27/2024 BASIC METAB OLIC PANEL sodium 143 mmol/ L 136-14 5 normal Not Available [facility] [address] [place] [address] [place], [address], 08/27/2024 17:39:44 08/27/20 24 08/27/2024 BASIC METAB OLIC PANEL potassium 4.0 mmol/ L 3.5-5. 1 normal Not Available [facility] [address] [place] [address] [place], [address], 08/27/2024 17:39:44 08/27/20 24 08/27/2024 BASIC METAB OLIC PANEL chloride 106 mmol/ L 98-107 normal Not Available [facility] [address] [place] [address] [place], [address], 08/27/2024 17:39:44 08/27/20 24 08/27/2024 BASIC METAB OLIC PANEL CO2 24.7 mmol/ L 21.0-3 2.0 normal Not Available [facility] [address] [place] [address] [place], [address], 08/27/2024 17:39:44 08/27/20 24 08/27/2024 BASIC METAB OLIC PANEL anion gap 12.3 mmol/ L 3-11 high Not Available [facility] [address] [place] [address] Dr, [place], [address], 08/27/2024 17:39:44 01/19/20 24 01/19/2024 MRI imagi ng repor t Patien t Name: Martha Payton Unit #: [id number] Loc: DI Orderi ng Provid er: Yulissa Lainez Accoun t #: [id number] Status : REG CLI Primar y [...] t, nonhem orrhag ic. DATA REPOSI TORY: Almase d By: Yulissa Lainez CC: ------ ------ [...] at the addres s above. Thank- you. [address] [place], [address] 01/19/2024 15:21:28 01/19/20 24 01/19/2024 MRI, brain , w/o contr ast No observ ation record ed. [email or web address] [facility] (Radiology) [address] [place] [address] [place], [address], 01/20/2024 08:49:10 01/19/20 24 01/19/2024 MRI, brain , w/o contr ast No observ ation record ed. [email or web address] [facility] (Radiology) [address] [place], [address], 01/20/2024 08:49:24 03/02/20 24 03/02/2024 MRI imagi ng repor t Patien t Name: Martha Payton Unit #: [id number] Loc: DI Orderi ng Provid er: Yulissa Lainez Accoun t #: [id number] Status : REG CLI Primar y [...] occlus ion or signif icant stenos is. Nursing Admin ior Cerebr al Arteri es: Right: No aneury sm, occlus ion or signif icant stenos is. Left: No aneury sm, occlus ion or signif icant stenos is. The left human resources communications manager ior cerebr al artery arises from the left human resources communications manager ior commun icatin g artery which is [...] at the addres s above. Thank- you. [email or web address] [facility] [address] [place], [address] 03/03/2024 18:56:46 03/02/20 24 03/02/2024 MRI imagi ng repor t Patikatie t Name: Martha Payton Unit #: [id number] Loc: DI Orderi ng Provid er: Yulissa Lainez Accoun t #: [id number] Status : REG CLI Primar y [...] occlus ion or signif icant stenos is. Stonemason Apprentice al Caroti d: Right: No eviden ce of occlus ion or signif icant stenos is. Left: No eviden ce of occlus ion or signif icant stenos is. Manager Software Development al Caroti d: Right: No dissec tion, [...] at the addres s above. Thank- you. [email or web address] [facility] [address] [place], [address] 03/03/2024 18:56:46 03/09/20 24 03/09/2024 ultra sound imagi ng repor t Patien t Name: Martha Payton Unit #: [id number] Loc: DI Orderi ng Provid er: Yulissa Lainez Accisael t #: [id number] Status : REG CLI Primar y [...] error, please notify us immedi ately at [phone] and return the origin al report to us at the addres s above. Thank- you. [facility] [address] [place], [address] 03/15/2024 11:38:17 03/09/20 24 03/09/2024 CT imagi denis wilde Name: Martha Payton Unit #: [id number] Loc: DI Orderi ng Provid er: Yulissa Lainez Accoun t #: [id number] Status : REG CLI Primar y [...] error, please notify us immedi michellely at [phone] and return the origin al report to us at the addres s above. Thank- you. [email or web address] [facility] [address], [place], [address] 03/15/2024 11:38:18 06/12/20 24 06/12/2024 x-ray imagi ng ofelia wilde Name: Martha Payton Unit #: [id number] Loc: ER Orderi ng Provid er: Lacho Correa M.D. Accoun t #: [id number] Status : REG ER Primar y [...] the addres s above. Thank- you. INTERFACE [facility] [address], [place], [address] 06/12/2024 18:34:32 06/12/20 24 06/12/2024 x-ray imagi ng repor t Patikatie t Name: Martha Payton Unit #: [id number] Loc: ER Orderi ng Provid er: Lacho Correa M.D. Accoun t #: [id number] Status : REG ER Primar y [...] Johnston M.D. 1829 Transc ribed By: Vickie RODRIGUEZ,How kendra 1829 This is privil eged, confid [...] the addres s above. Thank- you. INTERFACE [facility] [address], [place], [address] 06/12/2024 18:34:33 06/12/20 24 06/12/2024 CT imagi ng repor t Patien t Name: Martha Payton Unit #: [id number] Loc: ER Orderi ng Provid er: Lacho Correa M.D. Accoun t #: [id number] Status : REG ER Primar y [...] 2023. Report called by myself to IVA desphande 2023 at 6:35 p.m. RADIAT ION DOSE [...] DLP = 0.00 mGy-cm Ordere d By: Disaba kiko,S tephen M.D. CC: ------ ------ ------ ------ ------ [...] the addres s above. Thank- you. INTERFACE [facility] [address], [place], [address] 06/12/2024 18:43:33 06/12/20 24 06/12/2024 vrad repor t Patien t Name: Martha Payton Unit #: [id number] Loc: ER Orderi ng Provid er: Accoun t #: [id number] Status : REG ER Primar y [...] FINDIN GS: ANTERI OR CIRCUL ATION: Right communications intern al caroti d artery : Calcif ied plaque with severe stenos is cavern ous right ICA. Right middle cerebr al artery : Modera te to severe stenos is human resources communications manager ior M3 branch right MCA. No signif icant stenos is remain lien of the right MCA. Right anteri or cerebr al artery : No occlus ion or signif icant stenos is. No aneury sm. Left communications intern al caroti d artery : Calcif ied plaque with modera te stenos is cavern ous left ICA. Left middle cerebr al artery : No occlus ion or signif icant stenos is. No aneury sm. Left anteri or cerebr al artery : No occlus ion or signif icant stenos is. No aneury sm. ELECTRONIC IMAGER IOR CIRCUL ATION: Right verteb ral artery : No occlus ion or signif icant stenos is. No aneury sm. Left verteb ral artery : No occlus ion or signif icant stenos is. No aneury sm. Basila r artery : No occlus ion or signif icant stenos is. No aneury sm. Right human resources communications manager ior cerebr al artery : No occlus ion or signif icant stenos is. No aneury sm. Left human resources communications manager ior cerebr al artery : No occlus ion or signif icant stenos is. No aneury sm. HEAD: Brain: Stable right human resources communications manager ior fronta l and pariet al infarc [...] rkable . IMPRES BASIL: 1. Stable right human resources communications manager ior fronta l and pariet al infarc t. 2. 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 3. Calcif ied plaque with modera te stenos is cavern ous left ICA. 4. Modera te to severe stenos is human resources communications manager ior M3 branch right MCA. ASSESS MENT: [...] No dissec tion or occlus ion. Right communications intern al caroti d artery : No stenos is of the extrac ranial segmen t. No dissec tion or occlus ion. Right naval designer al caroti d artery : No occlus ion or stenos is of the origin . Left common caroti d artery : No stenos is. No dissec tion or occlus ion. Left communications intern al caroti d artery : No stenos is of the extrac ranial segmen t. No dissec tion or occlus ion. Left naval designer al caroti d artery : No occlus [...] the cervic al segmen t of the communications intern al caroti d artery is based on NASCET criter ia. Normal is no stenos is. Mild is less than 50% stenos is. Modera te is 50-69% stenos is. Severe is 70% to 99% stenos is. Total occlus ion is no detect able patent lumen. Dictat ed and Daphnie sanchez d by: Abelardo Nagel MD. Ordermariola ng:P.Ashley ISST Shelby pina MD Access ion#=[id number] Gin torres By: CC: ------ ------ ------ ------ ------ ------ ------ ------ ------ ------ ------ ------ ---- Dictat ed By: Report s vrad 2033 Transc ribed By: Di Yanique 2033 This is privil eged, confid ential [...] at the addres s above. Thank- you. [email or web address] [facility] [address] [place], [address] 06/15/2024 15:45:36 06/13/2006/13/2024 vrad ofelia wilde Name: Martha Payton Unit #: [id number] Loc: MS Thania barrios Provid er: Accoun t #: [id number] Status : ADM IN Primar y [...] MD. Orderi ng:Peyton Zhou MD Access ion#=[id number] Ordere d By: CC: ------ ------ ------ ------ ------ ------ ------ ------ ------ ------ ------ ------ ---- Dictat ed By: Report s vrad [id number] Transc ribed By: Chelsea Chanel 905 [...] at the addres s above. Thank- you. [email or web address] [facility] [address] [place], [address] 06/15/2024 15:45:36 06/13/20 24 06/13/2024 CT imagi ng repor t Patien t Name: Martha Payton Unit #: [id number] Loc: Ordermariola ng Provid er: Lacho Correa M.D. Accoun t #: [id number] Status : ADM IN Primar y [...] right side there is calcif ied plaque human resources communications manager iorly at the caroti d bulb-b ifurca tion level and there is also calcif ied plaque on the medial and human resources communications manager ior saldaña of the proxim al right ICA. Amount of stenos is at this level is estima liz at approx imatel y 40 percen t in the proxim al right ICA. The right ICA is nicely patent in the upper neck. Left caroti d bulb exhibi ts some calcif ied plaque anteri sherry. There is calcif ied plaque on the human resources communications manager ior wall the proxim al left ICA. Approx imatel y 30 percen t stenos is at this level. There is also self like plaque at the origin left ICA with more promin ent stenos is at this level, approx imatel y 70 percen t. Left ICA in the upper neck is patent . Nursing Admin ior circul ation: Both verteb ral arteri [...] Brain W: Anteri or circul ation: Both communications intern al caroti d arteri es are patent in the skull base-c arotid canals . Both intra cavern ous communications intern al caroti d arteri es are periph erally calcif ied. There is a signif icant focal stenos is at the juncti on of the intra cavern ous and suprac linoid aspect of the right communications intern al caroti d artery with approx [...] or commun icatin g artery . Left human resources communications manager ior cerebr al artery is patent withou t signif icant stenos is. There is mild-m oderat e narrow ing in the proxim al right middle cerebr al artery . No intral uminal thromb us seen. No aneury sms. No dissec tion flaps. Nursing Admin ior circul ation: The basila r artery ascend s in the midlin e. Distal ly it gives off patent right human resources communications manager ior cerebr al artery althou gh there is a modera te stenos is in the human resources communications manager ior cerebr al artery a few cm distal to its origin . The left human resources communications manager ior cerebr al artery is predom inantl y fed by a human resources communications manager ior commun icatin g artery on the left side of the [place]. This that There is no eviden ce of aneury sm at the tip of the basila r artery nor elsewh ere in the [place]. CT BRAIN: Again noted is [...] facili ty are submit liz to the [facility] al Radiol ogy Data Regist ry (NRDR) [...] tion); or iterat jr recons tructi on. 920- 017: Total DLP = 0.00 mGy-cm Ordere [...] the addres s above. Thank- you. INTERFACE [place] [id number], [place], [address] 06/13/2024 15:50:13 06/13/20 24 06/13/2024 CT imagi ng repor t Patien t Name: Martha Payton Unit #: [id number] Loc: Ordermariola ng Provid er: Sanjana unger,Da vid Accoun t #: [id number] Status : ADM IN Primar [...] noted with some bubbly debris therei n, osito geashley from yester day. Other visual ized parana chino sinuse s are clear. RADIAT ION DOSE DELIVE RED: 935.47 mGy.cm Total DLP DATA REPOSI TORY: All CT scans at this facili ty are submit liz to the [facility] al Radiol ogy Data Regist ry (NRDR) [...] error, please notify us immedmariola martinezly at and return the origin al report to us at the addres s above. Thank- you. INTERFACE [address] , [place], [address] 06/13/2024 16:16:16 06/14/20 24 06/14/2024 MRI imagi ng repor t Patien t Name: Martha Payton Unit #: [id number] Loc: MS Thania barrios Provid er: Jabari Bustamante t #: [id number] Status : ADM IN Primar y Care Provid er: FatouYulissa Date of Exam: 05/24 12/13 Sex: F [...] the addres s above. Thank- you. INTERFACE [facility] [address] [place], [address] 06/14/2024 12:37:22 06/14/20 24 06/14/2024 ultra sound imagi ng repor t Patien t Name: Martha Payton Unit #: [id number] Loc: Ordermariola ng Provid er: Jabari Bustamante Accoun t #: [id number] Status : ADM IN Primar [...] error, please notify us immedi ately at [phone] and return the origin al report to us at the addres s above. Thank- you. INTERFACE [facility] [address], [place], [address] 06/14/2024 15:22:54 07/16/20 24 07/16/2024 CT imagi ng ofelia t Obdulia t Name: Martha Payton yovani Carnes Unit #: [id number] Loc: ER Orderi ng Provid er: Stephania Hagan t #: [id number] Status : REG ER Primar y [...] were discus sed with Alliso n Lanette mi-Gol d at 2:45 p.m. on 2023. [...] Satinder Odonnell M.D. 1445 Transc ribed By: Stainder Odonnell 1445 This is privil eged, confid [...] the addres s above. Thank- you. INTERFACE [facility] [address], [place], [address] 07/16/2024 14:51:01 07/16/2007/16/2024 x-ray imagi ng ofelia wilde Name: Martha Payton Unit #: [id number] Loc: ER Orderi ng Provid er: Stephania Hagan Accoun t #: [id number] Status : REG ER Primar y [...] the addres s above. Thank- you. INTERFACE [facility] [address], [place], [address] 07/16/2024 14:58:08 07/16/2007/16/2024 CT imagi ng repor t Patikatie t Name: Martha Payton Unit #: [id number] Loc: ER Orderi ng Provid er: Stephania Hagan Accoun t #: [id number] Status : REG ER Primar y Care Provid er: Fatou, Jonath an Date of Exam: 06/23 02/12 Sex: F [...] compar ed to the examin ation from jose carnes in the day. RADIAT ION DOSE DELIVE [...] the addres s above. Thank- you. INTERFACE [facility] [address] , [place], [address] 07/16/2024 17:29:32 Result Notes None recorded. Problems Name Problem SNOMED Code Status Onset Date Resolution Date Notes Provider Name and Address Organization Details Recorded Time Diarrhea 22236675 Active [address], [place], [address], [facility] 4 18:06:27 Poor short-term memory 289247602 Active [address], [place], [address], [facility] 4 10:28:13 Essential hypertensi on 91722118 Active [address], [place], [address] , [facility] 4 10:29:23 Blood glucose outside reference range 411465869 Active [address], [place], [address], [facility] 4 10:30:43 Iritis 79885912 Active [address], [place], [address] , [facility] 4 10:31:43 Tobacco dependence caused by cigarettes 875603103149 78106 Active [address], [place], [address] , [facility] 4 12:23:42 Adjustment disorder with depressed mood 22863817 Active [address], [place], [address] , [facility] 4 12:26:28 Prediabete s 902756540 Active 2023 5.7% on [address], [place], [address] , [facility] 4 07:52:17 History of coronary artery bypass grafting 508123158 Active 2009 In 2010 per prior med recs [address], [place], [address] , [facility] 4 14:53:13 Unexplaine d weight loss 020170851 Active [address], [place], [address] , [facility] 4 13:43:55 Chronic cough 10250462 Active [address], [place], [address], [facility] 13:44:00 Pain of left shoulder joint 750257226410 09936 Active [address], [place], [address], [facility] 13:44:16 Hyperlipid emia 51788040 Active [address], [place], [address], [facility] 13:48:11 Chronic obstructiv e pulmonary disease 67668329 Active [address], [place], [address], [facility] 13:49:36 Lacunar infarction 543966936 Active [address], [place], [address], [facility] 18:17:27 Bradycardi a 93049129 Active [address], [place], [address], [facility] 18:36:12 Chronic kidney disease stage 3B 640221334 Active 2023 NOted in 1 Note in prior MR as stage 3 D/T HTN. Plan to control BP as care plan. [address], [place], [address], [facility] 05:24:31 Pulmonary emphysema 01723462 Active [address], [place], [address], [facility]. 4 12:31:17 Leukocytos is 510463603 Active 2023 ISATU ZAMORA PA-C [address], [place], [address], [facility]. 4 20:10:17 Pyuria 7783327 Active 2023 ISATU ZAMORA PA-C [address], [place], [address], [facility]. 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 08:10:59 Sundowning 881860330 Active [address], [place], [address], [facility]. 08:12:54 Loose stool 116675453 Active [address], [place], [address], [facility]. 09:45:26 Unsteady when walking 89626879 Active 2023 [address], [place], [address], [facility] 10:02:59 Decreased diastolic arterial pressure 69030577 Active 2023 [address], [place], [address], [facility] 4 10:04:18 Acute gastrointe stinal hemorrhage 90135649 Active 2023 [address], [place], [address], [facility] 06:49:56 Cerebral infarction 860998322 Active 2023 [address], [place], [address], [facility] 06:50:08 Acute urinary tract infection 625916897 Active 2023 [address], [place], [address], [facility] 06:52:30 Hypernatre sanaz 468545537 Active [address], [place], [address], [facility] 06:55:39 Problem Notes None recorded. Procedures Surgical History None recorded. Imaging Results Imaging Date Name Status LastModified by Organiz ation Details LastModified Time 01/19/2024 MRI imaging report completed [email or web address] [address] [place], [address] 01/19/2024 15:21:28 01/19/2024 MRI, brain, w/o contrast completed [email or web address] [facility] (Radiology) [address] [place] [address] [place], [address], 01/20/2024 08:49:10 01/19/2024 MRI, brain, w/o contrast completed [email or web address] [facility] (Radiology) [address] [place] [address] [place], [address], 01/20/2024 08:49:24 03/02/2024 MRI imaging report completed [email or web address] [place] [address] [place], [address] 03/03/2024 18:56:46 03/02/2024 MRI imaging report completed [id number] [place], [address] 03/03/2024 18:56:46 03/09/2024 ultrasound imaging report completed [email or web address] [place], [address] 03/15/2024 11:38:17 03/09/2024 CT imaging report completed [email or web address] [place], [address] 03/15/2024 11:38:18 06/12/2024 x-ray imaging report completed INTERFACE [address] [place], [address] 06/12/2024 18:34:32 06/12/2024 x-ray imaging report completed INTERFACE [address] [place], [address] 06/12/2024 18:34:33 06/12/2024 CT imaging report completed INTERFACE [address] [place], [address] 06/12/2024 18:43:33 06/12/2024 vrad report completed [email or web address] [place], [address] 06/15/2024 15:45:36 06/13/2024 vrad report completed [email or web address] [place], [address] 06/15/2024 15:45:36 06/13/2024 CT imaging report completed INTERFACE [address] [place], [address] 06/13/2024 15:50:13 06/13/2024 CT imaging report completed INTERFACE [address] [place], [address] 06/13/2024 16:16:16 06/14/2024 MRI imaging report completed INTERFACE [address] [place], [address] 06/14/2024 12:37:22 06/14/2024 ultrasound imaging report completed INTERFACE [address] [place], [address] 06/14/2024 15:22:54 07/16/2024 CT imaging report completed INTERFACE [address] [place], [address] 07/16/2024 14:51:01 07/16/2024 x-ray imaging report completed INTERFACE [address] [place], [address] 07/16/2024 14:58:08 07/16/2024 CT imaging report completed INTERFACE [address] [place], [address] 07/16/2024 17:29:32 Procedure Notes None recorded. Medical Equipment None Reported. Allergies Allergen ID Allergen Name Allergen Category Reaction Reaction Severity Criticality Documentation Date Start Date Code Code System Note Provider Name and Address Organization Details Recorded Time 30424 chlorthal idone medicatio n Not available Not available [facility] 01/28/[address], [place], [address] [place] [address] 17:56:24 22301 hydrochlo rothiazid e medicatio n Not available Not available [facility] 01/28/[address], [place], [address] [place] [address] 17:56:38 Medications Name Sig Start Date Stop Date Status Note LastModified by Organization Details LastModified Time losartan 50 mg tablet Take 1 tablet every day by oral route as directed . 08/11 completed Per [facility] EMR Not Available Not Available Not Available quetiapin e 25 mg tablet 1 tablet by mouth each night 2023 active Not Available Not Available Not Avai lable atorvasta tin 80 mg tablet Take 1 tablet every day by oral route at bedtime. 2023 [facility] Not Available Not Available Not Available [...] route. 08/10 completed End date of 07/21/20 Not Available Not Available Not Available aspirin 325 mg tablet Take 1 tablet every day by oral route as needed. 07/01 completed Not Available Not Available Not Available sodium bicarbona te 325 mg tablet Take 2 tablets every day by oral route as directed . 2023 [facility] Not Available Not Available Not Available sucralfat e 1 gram tablet 1 tab by mouth before meals and at night active Started by [facility] in setting of GI bleed [...] GI bleed at 07/13/20 24 [facility] hospital in setting of taking aspirin. Aspirin held at this time pending GI consult. Not Available Not Available Not Available amlodipin e 10 mg tablet Take 1 tablet every day by oral route. 2024 active Not Available Not Available Not Avai lable pantopraz ole 40 mg tablet,de layed release Take 1 tablet every day by oral route. 2023 active started by [facility] in setting of GI bleed [...] route as directed . 2023 active Per [employer] EMR Not Available Not Available Not Available [...] day by oral route in the evening. 07/094 completed to be taken 1 to 1.5 [...] by patient son and daughter in-law caregive meme [employer] only at this time. Not Available Not Available Not Available Vitals Date Recorded Body height Body mass index (BMI) Body weight Body temperature Oxygen saturation Oxygen saturation in Arterial blood by Pulse oximetry Heart rate Systolic blood pressure Diastolic blood pressure Provider Name and Address Organization Details Last Updated DateTime 4 147.32 cm 21.2 kg/m2 94566.9 8 g 98.1 [degF] 98 % 98 % 55 /min 122 mm[Hg] 90 mm[Hg] DEEDEE PITTMAN MA [facility] 4 13:06:09 Date Recorded Body height Body mass index (BMI) Body weight Body temperature Oxygen saturation Oxygen saturation in Arterial blood by Pulse oximetry Heart rate Systolic blood pressure Diastolic blood pressure Provider Name and Address Organization Details Last Updated DateTime 4 147.32 cm 20.8 kg/m2 19075.0 8 g 97.7 [degF] 97 % 97 % 62 /min 130 mm[Hg] 72 mm[Hg] DEEDEE PITTMAN MA [facility] 4 11:29:51 Date Recorded Body height [...] Updated DateTime 4 147.32 cm 20.5 kg/m2 27372.4 5 g 98.1 [degF] 99 % 99 % 62 /min 18 /min 195 mm[Hg] 63 mm[Hg] 211 mm[Hg] 102 mm[Hg] 210 mm[Hg] 75 mm[Hg] 199 mm[Hg] 66 mm[Hg] Keesha Zaragoza MA [facility] 4 21:02:19 Date Recorded Body height Body mass index (BMI) Body weight Body temperature Oxygen saturation Oxygen saturation in Arterial blood by Pulse oximetry Respiratory rate Heart rate Systolic blood pressure Diastolic blood pressure Provider Name and Address Organization Details Last Updated DateTime 4 147.32 cm 19.9 kg/m2 47407.9 9 g 98.6 [degF] 100 % 100 % 14 /min 70 /min 108 mm[Hg] 48 mm[Hg] SUKHDEV TORIBIO RN [facility] 4 09:38:14 Date Recorded Body height Body mass index (BMI) Body weight Body temperature Oxygen saturation Oxygen saturation in Arterial blood by Pulse oximetry Heart rate Systolic blood pressure Diastolic blood pressure Provider Name and Address Organization Details Last Updated DateTime 4 147.32 cm 20.4 kg/m2 51694.9 g 97.5 [degF] 97 % 97 % 52 /min 108 mm[Hg] 58 mm[Hg] DEEDEE PITTMAN MA [facility] 4 08:35:30 Social History Question Answer Notes LastModified by [employer] ion Details LastModified Time Tobacco Smoking Status Current Every Day Smoker [place], [facility] 11/01/2023 11:33:08 Would You Say That, [...] Of Your Most Recent Tobacco Screening? 05/14/2024 [email or web address] Information n ot available 05/14/2024 How Much Tobacco Do You Smoke? 0.5 PPD [email or web address] Information not available 05/14/2024 Has Tobacco Cessation Counseling Been Provided? Yes Information not available 11/01/2023 On What Date Was Tobacco Cessation Counseling Provided? 05/14/2024 [email or web address] Information not available 05/14/2024 Do You Or [...] 07/09/2024 completed [address], [place], [address], [facility] 07/09/2024 11:46:08 COVID-19, mRNA, LNP-S, PF, angie-sucrose, 30 mcg/0.3 mL 07/09/2024 completed MARIAM FANG [address], [facility] [address], [facility] 07/09/2024 11:46:08 Tdap 07/09/2024 completed MARIAM [address], [facility] [address], [facility] 07/09/2024 11:46:08 Past Encounters Encounter ID Performer Location Encounter Start Date Encounter Closed Date Diagnosis/Indication Diagnosis SNOMED-CT Code Diagnosis ICD10 Code [id number] SAJAN REINOSO [address] [place] [address] 11/01/2023 11:23:08 11/01/2023 12:27:22 Pain of left shoulder region 4347826967 M25.512 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-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 9565270408 23980 Z79.1 Elevated blood-pressure reading without diagnosis of hypertension 368245658 R03.0 Cough 35564263 R05.9 [id number] MAR[address] F[address] [facility] [address] [place] [address] 12/11/2023 09:48:55 12/11/2023 11:47:56 Poor short-term memory 846139809 R41.3 History of coronary artery bypass grafting 868129895 Z95.1 Essential hypertension 41239740 I10 Diabetes m ellitus screening 986913976 Z13.1 Hyperlipid emia screening 663740078 Z13.220 Adjustment disorder with depressed mood 04067373 F43.21 Tobacco de pendence caused by cigarettes 5740308136 9696712 F17.509 [id number] MARIAM F[address] [facility] [address] [place] [address] 01/28/2024 12:55:09 01/28/2024 14:09:34 Unexplained weight loss 936102585 R63.4 Chronic cough 21598361 R 05.3 Pain of le ft shoulder joint 2594665813 0510196 M25.512 Hyperlipidemia 15020044 E78.5 Chronic ob structive pulmonary disease 78614173 J44.9 Lacunar infarction 57634 8000 I63.81 Bradycardia 38572110 R00 .1 [id number] MARIAM FANG [facility] [address] [place] [address] 03/29/2024 11:20:50 03/29/2024 12:12:54 Tobacco dependence caused by cigarettes 8088008009 7510070 F17.210 Pulmonary emphysema 8743 3001 J43.9 Lacunar infarction 38727 8000 I63.81 Normal bod y mass index 79298335 Z68.20 Essential hypertension 57171497 I10 [id number] ISATU ZAMORA PA-C [address] [address] 05/14/2024 18:33:21 05/14/2024 21:16:51 Pyuria 6542663 R82.81 [id number] MARIAM FANG [facility] [address] [place] [address] 07/09/2024 09:29:21 07/09/2024 10:24:04 Right sided cerebral hemisphere cerebrovascular accident 483846885 I63.9 Hypokalemia 06498386 E87 .6 Essential hypertension 25044146 I10 Sundowning 923549520 F05 Loose stool 088739554 R1 9.5 Unsteady when walking 22 019634 R26.89 Decreased diastolic arterial pressure 92353163 R03.1 Active or passive immunization 683589186 Z23 [id number] MARIAM FANG [facility] [address] [place] [address] 07/20/2024 08:15:21 07/20/2024 09:24:16 Acute gastrointestinal hemorrhage 87514590 K92.2 Cerebral infarction 4325 49324 I63.9 Acute urin fam tract infection 297100463 N39.0 Hypernatremia 229043919 E87.0 Health Concerns Section Related Observation LastModified by Organization Detai ls LastModified Time None Recorded Concern Status LastModified by Organization Details LastModified Time None Recorded Advance Directives Directive None Recorded Payers Encounter Date Sequence Insurance Name Policy Number Policy Nicole Covered Member ID Nicole Member ID Guarantor Name 01/28/2024 1 [place] [employer] Jennifer Archer [id number] Jennifer Archer 01/28/2024 2 [employer] (MEDICAID) Jennifer Archer [id number] Jennifer Archer 03/29/2024 1 [place] Jennifer Archer [id number] Jennifer Archer 03/29/2024 2 [employer] [place] ([place]) Jennifer Archer [id number] Jennifer Archer 05/14/2024 1 [place] Jennifer Archer [id number] Jennifer Archer 05/14/2024 2 [employer] [place] [employer] [place]) Jennifer Archer [id number] Jennifer Archer 07/09/2024 1 [place] Jennifer Archer [id number] Jennifer Archer 07/09/2024 2 [employer] [place] ([employer]) Jennifer Archer [id number] Jennifer Archer 07/20/2024 1 [place] Jennifer Archer [id number] Jennifer Archer 07/20/2024 2 [employer] [place] [employer] ([place]) Jennifer Archer [id number] Jennifer Archer Notes Date Note Type Note Provider Name and Address Organization Details Recorded Time 01/28/2024 text/html Pt, 73-F, here f or f/u after brain imaging revealed an there is also a singular tiny focus of restricted diffusion in the left periventricular white matter consistent with acute lacunar infarct, nonhemorrhagic. from 01/19/2024. 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 improved w/Ventolin. MARIAM FANG [address], [place], [address], [facility]. 01/28/2024 18:42:01 03/29/2024 text/html Pt. 73-F, here f or f/u of lacunar infarct found incidentally on [...] No malignancy. MARIAM FANG [address], [place], [address], [facility]. 03/29/2024 12:38:37 05/14/2024 text/html I received a parag ne call from the patient's primary care provider [...] time. ISATU ZAMORA PA-C [address], [place], [address], [facility]. 05/15/2024 13:54:05 07/09/2024 text/html Pt, 74-F, here f or MARIAH after d/c from [facility] 06/17/2024 for Subacute right occipital [...] Low diastolic pressure today. [address], [place], [address], [facility]. 07/09/2024 11:48:31 07/20/2024 text/html Pt. 74-F, w/joseph gale, here for transition of care follow up from 07/19/2024 [facility] where she was hospitalized for acute UTI, [facility] neuro-vascular had recommended medical management.The patient continue to receive ceftriaxone and potassium replacement during the stay. Urineculture grew citrobacter Freundii and the patient will continue antibiotic therapy now withcefpodoxime orally to complete the treatment. The patient H H remained stable on protonix and sucralfate which will continue as outpatient therapy. Creatinine improved to 1.7. Plavix and aspirin are onhold. follow- up CBC and BMP ordered with critical values to PCP. Sodium chloride tablet held d/tNa at 146 this morning and to be resumed as per PCP discretion s/p outpatient blood work The patient will have to see her PCP within 7 days of discharge. Referral to neurology, general surgery made. The patient will be discharged home today with the resumption of all her home health services. [address], [place], [address], [facility]. 07/20/2024 09:53:21 OBGyn Episode No OBEpisode recorded.
== END 2024-09-24 16:50 | disposition home or self-care (01) ==
LOC: NCHCN 16:49
PROVIDERS: PCP Student in an Organized Health Care Education/Training Program; Visit Provider Student in an Organized Health Care Education/Training Program
DX: N39.0 Urinary tract infection, site not specified (principal); R82.89 Other abnormal findings on cytological and histological examination of urine
CPT/HCPCS: 87077; 87086; 87186

== ENCOUNTER 2024-10-01 16:50 | Outpatient (REF) | payer MEDICARE, MEDICAID, SELFPAY ==
--- OUTSIDE RECORDS SUMMARY | 2024-10-01 16:57 | XMS_ITS | Encounter Summary ---
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 Pathology & Laboratory Medicine [facility] [address] [place] [address] Outr Resulting Lab, Provider Social History Tobacco [...] Negative Negative 12/12/2023 11:48 EDT [facility] Blood VENOUS BLOOD / Unknown 12/11/2023 11:00 EDT 12/11/2023 21:23 EDT us Provider Outr Resulting Lab IMMUNOLOGY AND SEROL OGY ORDERABLES Final Result [facility] [address], [place] [id number] documented in this encounter Visit Diagnoses Not on filedocumented in this encounter
--- OUTSIDE RECORDS SUMMARY | 2024-10-01 16:57 | XMS_ITS | Data Portability ---
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 For Annual in September: Consider DEXA/risk factors of former smoker: Mammography: Life expectancy < 10 years, especially given recent stroke and advancing dementia, won't recommend future mammograms unless symptomatic. - Advanced Directive not on file [email or web address] Not available 07/09/2024 11:48:19 07/20/2024 07/20/2024 Care mgmt note 07/19/2024 states,Discharge home with resumption of full [facility] services and Community/[facility] er supports. Follow up with PCP and discharge plan of care as recommended. Donna will provide transportation. Patient/Family Education Needs: Review discharge instructions, limitations, medications and plan to follow up with community providers. Discuss ask me three. Services Needed at Discharge: Home Health Care Services (Resume [facility] RN, PT, OT, UNDERWRITING MANAGER) and Homemaking Services (Provided by [facility]) Donna reports she has to call to resume services. General surgery appt. w/Dr. Young 08/02/2024: - Has Neuro appt. w/Dr. Mondragon 07/26/2024 Pt. likely overstimulated in hospital, now can rest at home so discussed with Donna she might be catching up on some sleep. [email or web address] Not available 07/20/2024 09:53:12 Plan of Treatment Reminders Order Date Submit Date Provider Last Modified By Organization Details Last Modified Time Details Appointments Chroni c Care Coordi nator 30 2024 02:30P M [facility] Chronic Film Critic Not available Not available Not available Medica re Annual Wellne ss 40 2024 02:30P M Eduardo Fatou Not available Not available Not available Follow Up 30 2024 02:30P M Eduardo Fatou Not available Not available Not available Lab cultur e, urine + sensit ivity 2023 024 [facility] (Registration ), [address] [place] [address] [place], [address], 05/17/2024 08:14:58 micros copic method , urine 2023 024 [facility] (Registration ), [address] [place] [address] [place], [address], 05/15/2024 08:48:21 urinal ysis, dipsti ck [email or web address] [place] [address], [address] [place] [address], [address], [place], [address], 05/14/2024 20:40:44 CBC w/ auto diff 2023 024 [facility] (Registration ), [address] [place] [address] [place], [address], 07/09/2024 16:14:29 BMP, serum or plasma 2023 024 [email or web address] [facility] (Registration ), [address] [place] [address] [place], [address], 07/16/2024 16:54:56 magnes ium, serum or plasma 2023 024 [email or web address] [facility] (Registration ), [address] [place] [address] [place], [address], 07/16/2024 16:55:13 CBC w/ auto diff 2023 024 [facility] (Registration ), [address] [place] [address] [place], [address], 07/20/2024 16:04:47 BMP, serum or plasma [address] [facility], [address], [place], [address], 07/28/2024 10:41:09 magnes ium, serum or plasma [address] [facility] (Registration ), [address] [place] [address] , [place], [address], 07/27/2024 09:31:07 Referral None record ed. Procedures None record ed. Surgeries None record ed. Imaging None record ed. Medication Orders cefuro kimberly axetil 250 mg tablet 2023 024 [email or web address] [facility], [address] [place], [address], 07/01/2024 11:35:09 cefuro kimberly axetil 250 mg tablet 2023 024 [email or web address] Not available 07/01/2024 11:35:09 psylli um husk 0.4 gram capsul e 2023 024 [id number], [address] [place] [address], [id number], 07/09/2024 11:47:17 trazod one 50 mg tablet 2023 024 [facility] #[id number], [address] [place] [address], [id number], 07/09/2024 11:47:17 Lactob acillu s acidop hilus 1 billio n cell tablet 2023 024 [id number], [address] [place] [address], [place], [place], [id number], 07/20/2024 09:06:11 Patient TargetsNo targets recorded. Patient Instructions Encounter Date Encounter Id Patient Instructions Last Modified By Organization Details Last Modified Time 05/14/2024 [id number] 1. I am concerne d that her symptoms may be related to a urinary tract infection thus I have gone ahead and given her her first tablet of antibiotic tonight and the remaining doses were sent to the [facility] in [place]. She will take this medication morning and [...] results. [email or web address] Not available 05/14/2024 20:58:45 07/09/2024 [id number] Keep the environment dark during the night [...] of [email or web address] Not available 07/09/2024 10:05:30 07/20/2024 [id number] Continue to hold aspirin. [email or web address] Not available 07/20/2024 09:14:21 Reason for Referral None Reported. Results Created Date Observation Date Name Description Value Unit Range Abnormal Flag Note LastModifiedBy Organization Detail LastModifiedTime 05/14/20 24 05/14/2024 MICRO SCOPI C FINDI NGS WBC 10-20 hpf 0-5 abnormal Not Available [facility] (Registration ) [address] [place] [address] [place], [address], 05/14/2024 21:28:28 05/14/20 24 05/14/2024 MICRO SCOPI C FINDI NGS RBC 3-5 hpf 0-2 abnormal Not Available [facility] (Registration ) [address] [place] [address] [place], [address], 05/14/2024 21:28:28 05/14/20 24 05/14/2024 MICRO SCOPI C FINDI NGS epithelial cells Modera te hpf negati ve Not Available [facility] (Registration ) [address] [place] [address] [place], [address], 05/14/2024 21:28:28 05/14/20 24 05/14/2024 MICRO SCOPI C FINDI NGS bacteria Modera te hpf negati ve Not Available [facility] (Registration ) [address] [place] [address] [facility] [place], [address], 05/14/2024 21:28:28 05/14/20 24 05/14/2024 MICRO SCOPI C FINDI NGS crystals Negati ve hpf negati ve Not Available [facility] (Registration ) [address] [place] [address] [facility] [place], [address], 05/14/2024 21:28:28 05/14/20 24 05/14/2024 MICRO SCOPI C FINDI NGS mucus Negati ve negati ve Not Available [facility] (Registration ) [address] [place] [address] [facility] [place], [address], 05/14/2024 21:28:28 05/14/20 24 05/14/2024 MICRO SCOPI C FINDI NGS casts Negati ve lpf negati ve Not Available [facility] (Registration ) [address] [place] [address] [place], [address], 05/14/2024 21:28:28 05/14/20 24 05/14/2024 MICRO SCOPI C FINDI NGS C S indicated? C S Done As Ordere d Not Available [facility] (Registration ) [address] [place] [address] [facility] [place], [address], 05/14/2024 21:28:28 05/14/20 24 05/16/2024 URINE CULTU RE urine culture Urine Cultu re Proba ble conta minat ed colle ction APPEA DEBBIE Mixed Gram Posit jr Haylee COLON Y COUNT Not Available [facility] (Registration ) [address] [place] [address] [place], [address], 05/16/2024 10:35:04 05/14/20 24 05/16/2024 URINE CULTU RE urine culture colon ies/m L 50,00 0 - 100,0 00 Day 1 Resul t ISOLA RAISA BELOW O:GPF M (ORGA NISM ID: 1.1) - GRAM POSIT JR HAYLEE ,MIXE D Urine Cultu re (ORGA NISM ID: 1.1) - COLON Y COUNT (ORGA NISM ID: 1.1) - 50,00 0 - 100,0 00 Not Available [facility] (Registration ) [address] [place] [address] [place], [address], 05/16/2024 10:35:04 05/14/20 24 05/17/2024 URINE CULTU RE urine culture Urine Cultu re Proba ble conta minat ed colle ction APPEA DEBBIE Mixed Gram Posit jr Haylee APPEA DEBBIE Mixed Gram Posit jr Haylee COLON Y COUNT Not Available [facility] (Registration ) [address] [place] [address] [place], [address], 05/17/2024 10:00:22 05/14/20 24 05/17/2024 URINE CULTU [...] ID: 1.1) - >100, 000 Not Available [facility] (Registration ) [address] [place] [address] [facility] [place], [address], 05/17/2024 10:00:22 05/14/20 24 05/14/2024 urina lysis , dipst ick Leukocytes Trace Not Available [address], [place], [address], 05/14/2024 20:24:45 05/14/20 24 05/14/2024 urina lysis , dipst ick Nitrite negati ve Not Available [address], [place], [address], 05/14/2024 20:24:45 05/14/20 24 05/14/2024 urina lysis , dipst ick Urobilinogen .2 Not Available [address], [place], [address], 05/14/2024 20:24:45 05/14/20 24 05/14/2024 urina lysis , dipst ick Protein 100 Not Available [address], [place], [address], 05/14/2024 20:24:45 05/14/20 24 05/14/2024 urina lysis , dipst ick pH 5.0 Not Available [address], [place], [address], 05/14/2024 20:24:45 05/14/20 24 05/14/2024 urina lysis , dipst ick Blood Negati ve Not Available [address], [place], [address], 05/14/2024 20:24:45 05/14/20 24 05/14/2024 urina lysis , dipst ick Specific [place] 1.015 Not Available [address], [place], [address], 05/14/2024 20:24:45 05/14/20 24 05/14/2024 urina lysis , dipst ick Ketone Trace Not Available [address], [place], [address], 05/14/2024 20:24:45 05/14/20 24 05/14/2024 urina lysis , dipst ick Bilirubin Small Not Available [address], [place], [address], 05/14/2024 20:24:45 05/14/20 24 05/14/2024 urina lysis , dipst ick Glucose Negati ve Not Available [address], [place], [address], 05/14/2024 20:24:45 05/14/20 24 05/14/2024 urina lysis , dipst ick Appearance Clear Not Available [address], [place], [address], 05/14/2024 20:24:45 05/14/20 24 05/14/2024 urina lysis , dipst ick Color Dark Yellow Not Available [address], [place], [address], 05/14/2024 20:24:45 06/12/20 24 06/12/2024 URINE DRUG SCREE N ([facility] ) methadone Negati ve negati ve Not Available [facility] [address] [place], [address] 06/12/2024 20:21:43 06/12/20 24 06/12/2024 URINE DRUG SCREE N ([facility] ) benzodiazepi sharad Negati ve negati ve Benzo diaze pines are exten sivel y metab olize d and the paren t compo und may not be detec liz in urine . If clini shea suspi cion is high, pleas e notif y Lab for send- out testi ng. Not Available [address] [place], [address] 06/12/2024 20:21:43 06/12/20 24 06/12/2024 URINE DRUG SCREE N ([facility] ) cocaine Negati ve negati ve Not Available [address] [place], [address] 06/12/2024 20:21:43 06/12/20 24 06/12/2024 URINE DRUG SCREE N ([facility] ) amphetamines Negati ve negati ve Not Available [address] [place], [address] 06/12/2024 20:21:43 06/12/20 24 06/12/2024 URINE DRUG SCREE N ([facility] ) tetrahydroca nnabinol Negati ve negati ve Not Available [address] [place], [address] 06/12/2024 20:21:43 06/12/20 24 06/12/2024 URINE DRUG SCREE N ([facility] ) opiates Negati ve negati ve Not Available [address] [place], [address] 06/12/2024 20:21:43 06/12/20 24 06/12/2024 URINE DRUG SCREE N ([facility] ) barbiturates Negati ve negati ve Not Available [address] [place], [address] 06/12/2024 20:21:43 06/12/20 24 06/12/2024 URINE DRUG [...] tion of these resul ts. Not Available [address] [place], [address] 06/12/2024 20:21:43 06/12/20 24 06/12/2024 MICRO SCOPI C FINDI NGS WBC Negati ve hpf 0-5 Not Available [address] [place], [address] 06/12/2024 20:10:41 06/12/20 24 06/12/2024 MICRO SCOPI C FINDI NGS RBC Negati ve hpf 0-2 Not Available [address] [place], [address] 06/12/2024 20:10:41 06/12/20 24 06/12/2024 MICRO SCOPI C FINDI NGS epithelial cells Rare hpf negati ve Not Available [address] [place], [address] 06/12/2024 20:10:41 06/12/20 24 06/12/2024 MICRO SCOPI C FINDI NGS bacteria Rare hpf negati ve Not Available [address] [place], [address] 06/12/2024 20:10:41 06/12/20 24 06/12/2024 MICRO SCOPI C FINDI NGS crystals Negati ve hpf negati ve Not Available [address] [place], [address] 06/12/2024 20:10:41 06/12/20 24 06/12/2024 MICRO SCOPI C FINDI NGS mucus Negati ve negati ve Not Available [address] [place], [address] 06/12/2024 20:10:41 06/12/20 24 06/12/2024 MICRO SCOPI C FINDI NGS casts Negati ve lpf negati ve Not Available [address] [place], [address] 06/12/2024 20:10:41 06/12/20 24 06/12/2024 MICRO SCOPI C FINDI NGS C S indicated? No Not Available [address] [place], [address] 06/12/2024 20:10:41 06/12/20 24 06/12/2024 URINA LYSIS color Yellow yellow Not Available Marilin oliver [address] [place], [address] 06/12/2024 20:10:40 06/12/20 24 06/12/2024 URINA LYSIS clarity Clear clear Not Available Marilin oliver [address] [place], [address] 06/12/2024 20:10:40 06/12/20 24 06/12/2024 URINA LYSIS specific gravity 1.025 1.005- 1.025 normal Not Available [address] [place], [address] 06/12/2024 20:10:40 06/12/20 24 06/12/2024 URINA LYSIS pH 5.5 5-8 normal Not Available Marilin oliver [address] [place], [address] 06/12/2024 20:10:40 06/12/20 24 06/12/2024 URINA LYSIS leukocyte esterase Negati ve negati ve Not Available [address] [place], [address] 06/12/2024 20:10:40 06/12/20 24 06/12/2024 URINA LYSIS nitrite Negati ve negati ve Not Available [address] [place], [address] 06/12/2024 20:10:40 06/12/20 24 06/12/2024 URINA LYSIS protein 30 mg/dL neg-tr erendira abnormal Not Available [address] [place], [address] 06/12/2024 20:10:40 06/12/20 24 06/12/2024 URINA LYSIS glucose Negati ve mg/dL negati ve Not Available [address] [place], [address] 06/12/2024 20:10:40 06/12/20 24 06/12/2024 URINA LYSIS ketones Negati ve mg/dL negati ve Not Available [address] [place], [address] 06/12/2024 20:10:40 06/12/20 24 06/12/2024 URINA LYSIS urobilinogen 0.2 mg/dL up to 0.2 Not Available [address] [place], [address] 06/12/2024 20:10:40 06/12/20 24 06/12/2024 URINA LYSIS bilirubin Negati ve negati ve Not Available [address] [place], [address] 06/12/2024 20:10:40 06/12/20 24 06/12/2024 URINA LYSIS blood Negati ve negati ve Not Available [address] [place], [address] 06/12/2024 20:10:40 06/12/20 24 06/12/2024 URINA LYSIS color Yellow yellow Not Available Marilin oliver [address] [place], [address] 06/12/2024 20:04:40 06/12/20 24 06/12/2024 URINA LYSIS clarity Clear clear Not Available Marilin oliver [address] [place], [address] 06/12/2024 20:04:40 06/12/20 24 06/12/2024 URINA LYSIS specific gravity 1.025 1.005- 1.025 normal Not Available [address] [place], [address] 06/12/2024 20:04:40 06/12/20 24 06/12/2024 URINA LYSIS pH 5.5 5-8 normal Not Available Marilin oliver [address] [place], [address] 06/12/2024 20:04:40 06/12/20 24 06/12/2024 URINA LYSIS leukocyte esterase Negati ve negati ve Not Available [address] [place], [address] 06/12/2024 20:04:40 06/12/20 24 06/12/2024 URINA LYSIS nitrite Negati ve negati ve Not Available [address] [place], [address] 06/12/2024 20:04:40 06/12/20 24 06/12/2024 URINA LYSIS protein 30 mg/dL neg-tr erendira abnormal Not Available [address] [place], [address] 06/12/2024 20:04:40 06/12/20 24 06/12/2024 URINA LYSIS glucose Negati ve mg/dL negati ve Not Available [address] [place], [address] 06/12/2024 20:04:40 06/12/20 24 06/12/2024 URINA LYSIS ketones Negati ve mg/dL negati ve Not Available [address] [place], [address] 06/12/2024 20:04:40 06/12/20 24 06/12/2024 URINA LYSIS urobilinogen 0.2 mg/dL up to 0.2 Not Available [address] [place], [address] 06/12/2024 20:04:40 06/12/20 24 06/12/2024 URINA LYSIS bilirubin Negati ve negati ve Not Available [address] [place], [address] 06/12/2024 20:04:40 06/12/20 24 06/12/2024 URINA LYSIS blood Negati ve negati ve Not Available [address] [place], [address] 06/12/2024 20:04:40 06/12/20 24 06/12/2024 ACETA MINOP HEN acetaminophe n < 2 ug/mL 10-30 Not Available Yamil marrero [address] [place], [address] 06/12/2024 18:20:32 06/12/20 24 06/12/2024 LIPAS E lipase 71 U/L 16-77 normal Not Available Marilin oliver [address] [place], [address] 06/12/2024 18:55:40 06/12/20 24 06/12/2024 TSH (W/RE F FT4) TSH (w/ref FT4) 1.49 uIU/m L 0.36-3 .74 normal Not Available [address] [place], [address] 06/12/2024 18:55:40 06/12/20 24 06/12/2024 MAGNE SIUM magnesium 2.0 mg/dL 1.8-2. 4 normal Not Available [address] [place], [address] 06/12/2024 18:55:39 06/12/20 24 06/12/2024 ETHYL ALCOH OL ethyl alcohol < 3.0 mg/dL <10 ETOH Refer ence Range = <10 mg/dL Legal Limit of Intox icati on is 80 mg/dL This test is inten ded only for Medic al purpo ses. Divid e resul t by 1000 to conve rt to %(w/v ) Not Available [address] [place], [address] 06/12/2024 18:55:39 06/12/20 24 06/12/2024 CREAT INE KINAS E creatine kinase 81 U/L 26-192 normal Not Available Yamil marrero [address] [place], [address] 06/12/2024 18:55:38 06/12/20 24 06/12/2024 COMPR EHENS JR METAB OLIC PANEL calcium 9.5 mg/dL 8.5-10 .1 normal Not Available [address] [place], [address] 06/12/2024 18:55:38 06/12/20 24 06/12/2024 COMPR EHENS JR METAB OLIC PANEL glucose 162 mg/dL 74-106 high Not Available Marilin oliver [address] [place], [address] 06/12/2024 18:55:38 06/12/20 24 06/12/2024 COMPR EHENS JR METAB OLIC PANEL BUN 37 mg/dL 7-18 high Not Available Marilin oliver [address] [place], [address] 06/12/2024 18:55:38 06/12/20 24 06/12/2024 COMPR EHENS JR METAB OLIC PANEL creatinine 1.7 mg/dL 0.55-1 .02 high Not Available [address] [place], [address] 06/12/2024 18:55:38 06/12/20 24 06/12/2024 COMPR EHENS [...] young er-ag ed adult s. Not Available [address] [place], [address] 06/12/2024 18:55:38 06/12/20 24 06/12/2024 COMPR EHENS JR METAB OLIC PANEL total protein 7.4 g/dL 6.4-8. 2 normal Not Available [address] [place], [address] 06/12/2024 18:55:38 06/12/20 24 06/12/2024 COMPR EHENS JR METAB OLIC PANEL albumin 3.9 g/dL 3.4-5. 0 normal Not Available [address] [place], [address] 06/12/2024 18:55:38 06/12/20 24 06/12/2024 COMPR EHENS JR METAB OLIC PANEL bilirubin, total 0.52 mg/dL 0.2-1. 0 normal Not Available [address] [place], [address] 06/12/2024 18:55:38 06/12/20 24 06/12/2024 COMPR EHENS JR METAB OLIC PANEL alk phos 101 U/L 46-116 normal Not Available [address] [place], [address] 06/12/2024 18:55:38 06/12/20 24 06/12/2024 COMPR EHENS JR METAB OLIC PANEL sodium 144 mmol/ L 136-14 5 normal Not Available [address] [place], [address] 06/12/2024 18:55:38 06/12/20 24 06/12/2024 COMPR EHENS JR METAB OLIC PANEL potassium 3.6 mmol/ L 3.5-5. 1 normal Not Available [address] [place], [address] 06/12/2024 18:55:38 06/12/20 24 06/12/2024 COMPR EHENS JR METAB OLIC PANEL chloride 108 mmol/ L 98-107 high Not Available [address] [place], [address] 06/12/2024 18:55:38 06/12/20 24 06/12/2024 COMPR EHENS JR METAB OLIC PANEL CO2 23.8 mmol/ L 21.0-3 2.0 normal Not Available [address] [place], [address] 06/12/2024 18:55:38 06/12/20 24 06/12/2024 COMPR EHENS JR METAB OLIC PANEL anion gap 12.2 mmol/ L 3-11 high Not Available [address] [place], [address] 06/12/2024 18:55:38 06/12/20 24 06/12/2024 COMPR EHENS JR METAB OLIC PANEL AST 15 U/L 15-37 normal Not Available Marilin [address] [place], [address] 06/12/2024 18:55:38 06/12/20 24 06/12/2024 COMPR EHENS JR METAB OLIC PANEL ALT 15 U/L 14-59 normal Not Available Marilin oliver [address] [place], [address] 06/12/2024 18:55:38 06/12/20 24 06/12/2024 COVID /FLU/ RSV PCR source Nasoph arynx Not Available Tiffani pina [address] [place], [address] 06/12/2024 18:35:33 06/12/20 24 06/12/2024 COVID /FLU/ [...] tion of nucle ic acid from the 2018 novel coron a virus (2018nCoV ), influ [...] detec tion and/o r diagn osis of nCoV under secti on 564(b )(1) of [...] matio n. Testi ng perfo [facility] at [facility] (CLIA #[id number]) on the Cephe id GeneX pert. Not Available [address] [place], [address] 06/12/2024 18:35:33 06/12/20 24 06/12/2024 COVID /FLU/ RSV PCR influenza A PCR Negati ve negati ve Not Available [address] [place], [address] 06/12/2024 18:35:33 06/12/20 24 06/12/2024 COVID /FLU/ RSV PCR influenza B PCR Negati ve negati ve Not Available [address] [place], [address] 06/12/2024 18:35:33 06/12/20 24 06/12/2024 COVID /FLU/ RSV PCR RSV PCR Negati ve negati ve Not Available [address] [place], [address] 06/12/2024 18:35:33 06/12/20 24 06/12/2024 PTT ACTIV ATED PTT activated 22.1 sec 23.6-3 2.8 low Hepar in Thera peuti c Range for PTT = 52-84 secon ds New Hepar in Thera peuti c Range 10/28 Not Available [address] [place], [address] 06/12/2024 18:13:30 06/12/20 24 06/12/2024 PROTH ROMBI N TIME prothrombin time 9.9 sec 9.1-11 .1 normal Not Available [address] [place], [address] 06/12/2024 18:13:30 06/12/20 24 06/12/2024 PROTH ROMBI N TIME INR 1.0 0.9-1. 1 normal Recom luis a d INR thera peuti c range s for orall y admin ister ed drugs are as follo ws: -Dustin dard Inten sity 2.0 to 3.0 -High er Inten sity 3.0 to 4.5 Not Available [address] [place], [address] 06/12/2024 18:13:30 06/12/20 24 06/12/2024 VALENCIA IA ammonia < 10 umol/ L 11-32 low Not Available [address] [place], [address] 06/12/2024 18:10:29 06/12/20 24 06/12/2024 COMPL ETE BLOOD COUNT W/DIF F WBC 7.41 10_3/ uL 4.4-10 .8 normal Not Available [address] [place], [address] 06/12/2024 18:08:30 06/12/20 24 06/12/2024 COMPL ETE BLOOD COUNT W/DIF F RBC 3.82 10_6/ uL 3.93-5 .22 low Not Available [address] [place], [address] 06/12/2024 18:08:30 06/12/20 24 06/12/2024 COMPL ETE BLOOD COUNT W/DIF F HGB 11.9 g/dL 11.2-1 5.7 normal Not Available [address] [place], [address] 06/12/2024 18:08:30 06/12/20 24 06/12/2024 COMPL ETE BLOOD COUNT W/DIF F HCT 34.8 % 36.0-4 6.0 low Not Available [address] [place], [address] 06/12/2024 18:08:30 06/12/20 24 06/12/2024 COMPL ETE BLOOD COUNT W/DIF F MCV 91 fL 80-95 normal Not Available Marilin oliver [address] [place], [address] 06/12/2024 18:08:30 06/12/20 24 06/12/2024 COMPL ETE BLOOD COUNT W/DIF F MCH 31.2 pg 27.0-3 3.0 normal Not Available [address] [place], [address] 06/12/2024 18:08:30 06/12/20 24 06/12/2024 COMPL ETE BLOOD COUNT W/DIF F MCHC 34.2 % 32.0-3 6.0 normal Not Available [address] [place], [id number] 06/12/2024 18:08:30 06/12/20 24 06/12/2024 COMPL ETE BLOOD COUNT W/DIF F RDW 12.2 % 11.7-1 4.6 normal Not Available [address] [place], [address] 06/12/2024 18:08:30 06/12/20 24 06/12/2024 COMPL ETE BLOOD COUNT W/DIF F platelet count 211 10_3/ uL 130-40 0 normal Not Available [address] [place], [id number] 06/12/2024 18:08:30 06/12/20 24 06/12/2024 COMPL ETE BLOOD COUNT W/DIF F MPV 10.8 fL 8.0-11 .0 normal Not Available [address] [place], [address] 06/12/2024 18:08:30 06/12/20 24 06/12/2024 COMPL ETE BLOOD COUNT W/DIF F neutrophils % 58.3 % Not Available [address] [place], [address] 06/12/2024 18:08:30 06/12/20 24 06/12/2024 COMPL ETE BLOOD COUNT W/DIF F lymphocytes % 33.3 % Not Available [address] [place], [address] 06/12/2024 18:08:30 06/12/20 24 06/12/2024 COMPL ETE BLOOD COUNT W/DIF F monocytes % 5.0 % Not Available [address] [place], [address] 06/12/2024 18:08:30 06/12/20 24 06/12/2024 COMPL ETE BLOOD COUNT W/DIF F eosinophils % 2.3 % Not Available [address] [place], [address] 06/12/2024 18:08:30 06/12/20 24 06/12/2024 COMPL ETE BLOOD COUNT W/DIF F basophils % 0.8 % Not Available [address] [place], [address] 06/12/2024 18:08:30 06/12/20 24 06/12/2024 COMPL ETE BLOOD COUNT W/DIF F immature grans % 0.3 % Not Available [address] [place], [address] 06/12/2024 18:08:30 06/12/20 24 06/12/2024 COMPL ETE BLOOD COUNT W/DIF F nucleated RBC 0.0 % 0.0-0. 3 normal Not Available [address] [place], [address] 06/12/2024 18:08:30 06/12/20 24 06/12/2024 COMPL ETE BLOOD COUNT W/DIF F absolute neutrophil count 4.32 10_3/ uL 1.2-6. 7 normal Not Available [address] [place], [address] 06/12/2024 18:08:30 06/12/20 24 06/12/2024 COMPL ETE BLOOD COUNT W/DIF F absolute lymphocyte count 2.47 10_3/ uL 1.2-3. 4 normal Not Available [address] [place], [address] 06/12/2024 18:08:30 06/12/20 24 06/12/2024 COMPL ETE BLOOD COUNT W/DIF F absolute monocyte count 0.37 10_3/ uL 0.1-0. 8 normal Not Available [address] [place], [address] 06/12/2024 18:08:30 06/12/20 24 06/12/2024 COMPL ETE BLOOD COUNT W/DIF F absolute eosinophil count 0.17 10_3/ uL 0.0-0. 7 normal Not Available [address] [place], [address] 06/12/2024 18:08:30 09/21/20 24 06/12/2024 COMPL ETE BLOOD COUNT W/DIF F absolute basophil count 0.06 10_3/ uL 0.0-0. 2 normal Not Available [address] [place], [address] 06/12/2024 18:08:30 06/12/20 24 06/12/2024 VENOU S BLOOD GAS pH (venous) 7.30 7.31-7 .41 low Not Available [address] [place], [address] 06/12/2024 17:56:28 06/12/20 24 06/12/2024 VENOU S BLOOD GAS pCO2 (venous) 45 mmHg 41-51 normal Not Available [address] [place], [address] 06/12/2024 17:56:28 06/12/20 24 06/12/2024 VENOU S BLOOD GAS pO2 (venous) 31 mmHg Not Available [address] [place], [address] 06/12/2024 17:56:28 06/12/20 24 06/12/2024 VENOU S BLOOD GAS TCO2 (venous) 21 mmol/ L 24-29 low Not Available [address] [place], [address] 06/12/2024 17:56:28 06/12/20 24 06/12/2024 VENOU S BLOOD GAS HCO3 (venous) 22 mmol/ L 23-28 low Not Available [address] [place], [address] 06/12/2024 17:56:28 06/12/20 24 06/12/2024 VENOU S BLOOD GAS BE (venous) -4 mmol/ L -2-3 low Not Available [address] [place], [address] 06/12/2024 17:56:28 06/12/20 24 06/12/2024 VENOU S BLOOD GAS O2 sat (venous) 57 % Not Available [address] [place], [address] 06/12/2024 17:56:28 06/12/20 24 06/12/2024 TSH (W/RE F FT4) TSH (w/ref FT4) 1.49 uIU/m L 0.36-3 .74 normal Not Available [address] [place], [address] 06/12/2024 18:45:41 06/12/20 24 06/12/2024 MAGNE SIUM magnesium 2.0 mg/dL 1.8-2. 4 normal Not Available [address] [place], [address] 06/12/2024 18:45:41 06/12/20 24 06/12/2024 ETHYL ALCOH OL ethyl alcohol < 3.0 mg/dL <10 ETOH Refer ence Range = <10 mg/dL Legal Limit of Intox icati on is 80 mg/dL This test is inten ded only for Medic al purpo ses. Divid e resul t by 1000 to conve rt to %(w/v ) Not Available [address] [place], [address] 06/12/2024 18:45:40 06/12/20 24 06/12/2024 CREAT INE KINAS E creatine kinase 81 U/L 26-192 normal Not Available Yamil marrero [address] [place], [address] 06/12/2024 18:45:40 06/12/20 24 06/12/2024 COMPR EHENS JR METAB OLIC PANEL calcium 9.5 mg/dL 8.5-10 .1 normal Not Available [address] [place], [address] 06/12/2024 18:45:39 06/12/20 24 06/12/2024 COMPR EHENS JR METAB OLIC PANEL glucose 162 mg/dL 74-106 high Not Available Marilin oliver [address] [place], [address] 06/12/2024 18:45:39 06/12/20 24 06/12/2024 COMPR EHENS JR METAB OLIC PANEL BUN 37 mg/dL 7-18 high Not Available Marilin oliver [address] [place], [address] 06/12/2024 18:45:39 06/12/20 24 06/12/2024 COMPR EHENS JR METAB OLIC PANEL creatinine 1.7 mg/dL 0.55-1 .02 high Not Available [address] [place], [address] 06/12/2024 18:45:39 06/12/20 24 06/12/2024 COMPR EHENS [...] young er-ag ed adult s. Not Available [address] [place], [address] 06/12/2024 18:45:39 06/12/20 24 06/12/2024 COMPR EHENS JR METAB OLIC PANEL total protein 7.4 g/dL 6.4-8. 2 normal Not Available [address] [place], [address] 06/12/2024 18:45:39 06/12/20 24 06/12/2024 COMPR EHENS JR METAB OLIC PANEL albumin 3.9 g/dL 3.4-5. 0 normal Not Available [address] [place], [address] 06/12/2024 18:45:39 06/12/20 24 06/12/2024 COMPR EHENS JR METAB OLIC PANEL bilirubin, total 0.52 mg/dL 0.2-1. 0 normal Not Available [address] [place], [address] 06/12/2024 18:45:39 06/12/20 24 06/12/2024 COMPR EHENS JR METAB OLIC PANEL alk phos 101 U/L 46-116 normal Not Available [address] [place], [address] 06/12/2024 18:45:39 06/12/20 24 06/12/2024 COMPR EHENS JR METAB OLIC PANEL sodium 144 mmol/ L 136-14 5 normal Not Available [address] [place], [address] 06/12/2024 18:45:39 06/12/20 24 06/12/2024 COMPR EHENS JR METAB OLIC PANEL potassium 3.6 mmol/ L 3.5-5. 1 normal Not Available [address] [place], [address] 06/12/2024 18:45:39 06/12/20 24 06/12/2024 COMPR EHENS JR METAB OLIC PANEL chloride 108 mmol/ L 98-107 high Not Available [address] [place], [address] 06/12/2024 18:45:39 06/12/20 24 06/12/2024 COMPR EHENS JR METAB OLIC PANEL CO2 23.8 mmol/ L 21.0-3 2.0 normal Not Available [address] [place], [address] 06/12/2024 18:45:39 06/12/20 24 06/12/2024 COMPR EHENS JR METAB OLIC PANEL anion gap 12.2 mmol/ L 3-11 high Not Available [address] [place], [address] 06/12/2024 18:45:39 06/12/20 24 06/12/2024 COMPR EHENS JR METAB OLIC PANEL AST 15 U/L 15-37 normal Not Available Marilin oliver [address] [place], [address] 06/12/2024 18:45:39 06/12/20 24 06/12/2024 COMPR EHENS JR METAB OLIC PANEL ALT 15 U/L 14-59 normal Not Available Marilin oliver [address] [place], [address] 06/12/2024 18:45:39 06/12/20 24 06/12/2024 TSH (W/RE F FT4) TSH (w/ref FT4) 1.49 uIU/m L 0.36-3 .74 normal Not Available [address] [place], [address] 06/12/2024 18:45:36 06/12/20 24 06/12/2024 MAGNE SIUM magnesium 2.0 mg/dL 1.8-2. 4 normal Not Available [address] [place], [address] 06/12/2024 18:45:36 06/12/20 24 06/12/2024 ETHYL ALCOH OL ethyl alcohol < 3.0 mg/dL <10 ETOH Refer ence Range = <10 mg/dL Legal Limit of Intox icati on is 80 mg/dL This test is inten ded only for Medic al purpo ses. Divid e resul t by 1000 to conve rt to %(w/v ) Not Available [address] [place], [address] 06/12/2024 18:45:35 06/12/20 24 06/12/2024 CREAT INE KINAS E creatine kinase 81 U/L 26-192 normal Not Available Yamil marrero [address] [place], [address] 06/12/2024 18:45:35 06/12/20 24 06/12/2024 COMPR EHENS JR METAB OLIC PANEL calcium 9.5 mg/dL 8.5-10 .1 normal Not Available [address] [place], [address] 06/12/2024 18:45:34 06/12/20 24 06/12/2024 COMPR EHENS JR METAB OLIC PANEL glucose 162 mg/dL 74-106 high Not Available Marilin oliver [address] [place], [address] 06/12/2024 18:45:34 06/12/20 24 06/12/2024 COMPR EHENS JR METAB OLIC PANEL BUN 37 mg/dL 7-18 high Not Available Marilin oliver [address] [place], [address] 06/12/2024 18:45:34 06/12/20 24 06/12/2024 COMPR EHENS JR METAB OLIC PANEL creatinine 1.7 mg/dL 0.55-1 .02 high Not Available [address] [place], [address] 06/12/2024 18:45:34 06/12/20 24 06/12/2024 COMPR EHENS [...] young er-ag ed adult s. Not Available [address] [place], [address] 06/12/2024 18:45:34 06/12/20 24 06/12/2024 COMPR EHENS JR METAB OLIC PANEL total protein 7.4 g/dL 6.4-8. 2 normal Not Available [address] [place], [address] 06/12/2024 18:45:34 06/12/20 24 06/12/2024 COMPR EHENS JR METAB OLIC PANEL albumin 3.9 g/dL 3.4-5. 0 normal Not Available [address] [place], [address] 06/12/2024 18:45:34 06/12/20 24 06/12/2024 COMPR EHENS JR METAB OLIC PANEL bilirubin, total 0.52 mg/dL 0.2-1. 0 normal Not Available [address] [place], [address] 06/12/2024 18:45:34 06/12/20 24 06/12/2024 COMPR EHENS JR METAB OLIC PANEL alk phos 101 U/L 46-116 normal Not Available [address] [place], [address] 06/12/2024 18:45:34 06/12/20 24 06/12/2024 COMPR EHENS JR METAB OLIC PANEL sodium 144 mmol/ L 136-14 5 normal Not Available [address] [place], [address] 06/12/2024 18:45:34 06/12/20 24 06/12/2024 COMPR EHENS JR METAB OLIC PANEL potassium 3.6 mmol/ L 3.5-5. 1 normal Not Available [address] [place], [address] 06/12/2024 18:45:34 06/12/20 24 06/12/2024 COMPR EHENS JR METAB OLIC PANEL chloride 108 mmol/ L 98-107 high Not Available [address] [place], [address] 06/12/2024 18:45:34 06/12/20 24 06/12/2024 COMPR EHENS JR METAB OLIC PANEL CO2 23.8 mmol/ L 21.0-3 2.0 normal Not Available [address] [place], [address] 06/12/2024 18:45:34 06/12/20 24 06/12/2024 COMPR EHENS JR METAB OLIC PANEL anion gap 12.2 mmol/ L 3-11 high Not Available [address] [place], [address] 06/12/2024 18:45:34 06/12/20 24 06/12/2024 COMPR EHENS JR METAB OLIC PANEL AST 15 U/L 15-37 normal Not Available Marilin oliver [address] [place], [address] 06/12/2024 18:45:34 06/12/20 24 06/12/2024 COMPR EHENS JR METAB OLIC PANEL ALT 15 U/L 14-59 normal Not Available Marilin oliver [address] [place], [address] 06/12/2024 18:45:34 06/12/20 24 06/12/2024 CREAT INE KINAS E creatine kinase 81 U/L 26-192 normal Not Available Carlos elida [address] [place], [address] 06/12/2024 18:21:32 06/12/20 24 06/12/2024 COMPR EHENS JR METAB OLIC PANEL total protein 7.4 g/dL 6.4-8. 2 normal Not Available [address] [place], [address] 06/12/2024 18:21:31 06/12/20 24 06/12/2024 COMPR EHENS JR METAB OLIC PANEL bilirubin, total 0.52 mg/dL 0.2-1. 0 normal Not Available [address] [place], [address] 06/12/2024 18:21:31 06/12/20 24 06/12/2024 COMPR EHENS JR METAB OLIC PANEL sodium 144 mmol/ L 136-14 5 normal Not Available [address] [place], [address] 06/12/2024 18:21:31 06/12/20 24 06/12/2024 COMPR EHENS JR METAB OLIC PANEL potassium 3.6 mmol/ L 3.5-5. 1 normal Not Available [address] [place], [address] 06/12/2024 18:21:31 06/12/20 24 06/12/2024 COMPR EHENS JR METAB OLIC PANEL chloride 108 mmol/ L 98-107 high Not Available [address] [place], [address] 06/12/2024 18:21:31 06/12/20 24 06/12/2024 COMPR EHENS JR METAB OLIC PANEL CO2 23.8 mmol/ L 21.0-3 2.0 normal Not Available [address] [place], [address] 06/12/2024 18:21:31 06/12/20 24 06/12/2024 COMPR EHENS JR METAB OLIC PANEL anion gap 12.2 mmol/ L 3-11 high Not Available [address] [place], [address] 06/12/2024 18:21:31 06/13/20 24 06/13/2024 MAGNE SIUM magnesium 1.8 mg/dL 1.8-2. 4 normal Not Available [address] [place], [address] 06/13/2024 07:03:39 06/13/20 24 06/13/2024 COMPR EHENS JR METAB OLIC PANEL calcium 9.0 mg/dL 8.5-10 .1 normal Not Available [address] [place], [address] 06/13/2024 07:03:38 06/13/20 24 06/13/2024 COMPR EHENS JR METAB OLIC PANEL glucose 104 mg/dL 74-106 normal Not Available Marilin [address] [place], [address] 06/13/2024 07:03:38 06/13/20 24 06/13/2024 COMPR EHENS JR METAB OLIC PANEL BUN 34 mg/dL 7-18 high Not Available Marilin [address] [place], [address] 06/13/2024 07:03:38 06/13/20 24 06/13/2024 COMPR EHENS JR METAB OLIC PANEL creatinine 1.6 mg/dL 0.55-1 .02 high Not Available [address] [place], [address] 06/13/2024 07:03:38 06/13/20 24 06/13/2024 COMPR EHENS [...] young er-ag ed adult s. Not Available [address] [place], [address] 06/13/2024 07:03:38 06/13/20 24 06/13/2024 COMPR EHENS JR METAB OLIC PANEL total protein 6.7 g/dL 6.4-8. 2 normal Not Available [address] [place], [address] 06/13/2024 07:03:38 06/13/20 24 06/13/2024 COMPR EHENS JR METAB OLIC PANEL albumin 3.5 g/dL 3.4-5. 0 normal Not Available [address] [place], [address] 06/13/2024 07:03:38 06/13/20 24 06/13/2024 COMPR EHENS JR METAB OLIC PANEL bilirubin, total 0.40 mg/dL 0.2-1. 0 normal Not Available [address] [place], [address] 06/13/2024 07:03:38 06/13/20 24 06/13/2024 COMPR EHENS JR METAB OLIC PANEL alk phos 91 U/L 46-116 normal Not Available [address] [place], [address] 06/13/2024 07:03:38 06/13/20 24 06/13/2024 COMPR EHENS JR METAB OLIC PANEL sodium 138 mmol/ L 136-14 5 normal Not Available [address] [place], [address] 06/13/2024 07:03:38 06/13/20 24 06/13/2024 COMPR EHENS JR METAB OLIC PANEL potassium 3.4 mmol/ L 3.5-5. 1 low Not Available [address] [place], [address] 06/13/2024 07:03:38 06/13/20 24 06/13/2024 COMPR EHENS JR METAB OLIC PANEL chloride 106 mmol/ L 98-107 normal Not Available [address] [place], [address] 06/13/2024 07:03:38 09/22/20 24 06/13/2024 COMPR EHENS JR METAB OLIC PANEL CO2 22.6 mmol/ L 21.0-3 2.0 normal Not Available [address] [place], [address] 06/13/2024 07:03:38 06/13/20 24 06/13/2024 COMPR EHENS JR METAB OLIC PANEL anion gap 9.4 mmol/ L 3-11 normal Not Available [address] [place], [address] 06/13/2024 07:03:38 06/13/20 24 06/13/2024 COMPR EHENS JR METAB OLIC PANEL AST 14 U/L 15-37 low Not Available [address] [place], [address] 06/13/2024 07:03:38 06/13/20 24 06/13/2024 COMPR EHENS JR METAB OLIC PANEL ALT 12 U/L 14-59 low Not Available [address] [place], [address] 06/13/2024 07:03:38 06/13/20 24 06/13/2024 COMPL ETE BLOOD COUNT NO DIFF WBC 8.48 10_3/ uL 4.4-10 .8 normal Not Available [address] [place], [address] 06/13/2024 06:47:37 06/13/20 24 06/13/2024 COMPL ETE BLOOD COUNT NO DIFF RBC 3.48 10_6/ uL 3.93-5 .22 low Not Available [address] [place], [address] 06/13/2024 06:47:37 06/13/20 24 06/13/2024 COMPL ETE BLOOD COUNT NO DIFF HGB 10.8 g/dL 11.2-1 5.7 low Not Available [address] [place], [address] 06/13/2024 06:47:37 06/13/20 24 06/13/2024 COMPL ETE BLOOD COUNT NO DIFF HCT 31.5 % 36.0-4 6.0 low Not Available [address] [place], [address] 06/13/2024 06:47:37 06/13/20 24 06/13/2024 COMPL ETE BLOOD COUNT NO DIFF MCV 91 fL 80-95 normal Not Available Marilin [address] [place], [address] 06/13/2024 06:47:37 06/13/20 24 06/13/2024 COMPL ETE BLOOD COUNT NO DIFF MCH 31.0 pg 27.0-3 3.0 normal Not Available [address] [place], [address] 06/13/2024 06:47:37 06/13/20 24 06/13/2024 COMPL ETE BLOOD COUNT NO DIFF MCHC 34.3 % 32.0-3 6.0 normal Not Available [address] [place], [address] 06/13/2024 06:47:37 06/13/20 24 06/13/2024 COMPL ETE BLOOD COUNT NO DIFF RDW 12.1 % 11.7-1 4.6 normal Not Available [address] [place], [address] 06/13/2024 06:47:37 06/13/20 24 06/13/2024 COMPL ETE BLOOD COUNT NO DIFF platelet count 200 10_3/ uL 130-40 0 normal Not Available [address] [place], [address] 06/13/2024 06:47:37 06/13/20 24 06/13/2024 COMPL ETE BLOOD COUNT NO DIFF MPV 10.5 fL 8.0-11 .0 normal Not Available [address] [place], [address] 06/13/2024 06:47:37 06/16/20 24 06/16/2024 COMPL ETE BLOOD COUNT W/DIF F WBC 10.78 10_3/ uL 4.4-10 .8 normal Not Available [address] [place], [address] 06/16/2024 15:02:01 06/16/20 24 06/16/2024 COMPL ETE BLOOD COUNT W/DIF F RBC 3.86 10_6/ uL 3.93-5 .22 low Not Available [address] [place], [address] 06/16/2024 15:02:01 06/16/20 24 06/16/2024 COMPL ETE BLOOD COUNT W/DIF F HGB 11.8 g/dL 11.2-1 5.7 normal Not Available [address] [place], [address] 06/16/2024 15:02:01 06/16/20 24 06/16/2024 COMPL ETE BLOOD COUNT W/DIF F HCT 35.1 % 36.0-4 6.0 low Not Available [address] [place], [address] 06/16/2024 15:02:01 06/16/20 24 06/16/2024 COMPL ETE BLOOD COUNT W/DIF F MCV 91 fL 80-95 normal Not Available [address] [place], [address] 06/16/2024 15:02:01 06/16/20 24 06/16/2024 COMPL ETE BLOOD COUNT W/DIF F MCH 30.6 pg 27.0-3 3.0 normal Not Available [address] [place], [address] 06/16/2024 15:02:01 06/16/20 24 06/16/2024 COMPL ETE BLOOD COUNT W/DIF F MCHC 33.6 % 32.0-3 6.0 normal Not Available [address] [place], [address] 06/16/2024 15:02:01 06/16/20 24 06/16/2024 COMPL ETE BLOOD COUNT W/DIF F RDW 12.5 % 11.7-1 4.6 normal Not Available [address] [place], [address] 06/16/2024 15:02:01 06/16/20 24 06/16/2024 COMPL ETE BLOOD COUNT W/DIF F platelet count 256 10_3/ uL 130-40 0 normal Not Available [address] [place], [address] 06/16/2024 15:02:01 06/16/20 24 06/16/2024 COMPL ETE BLOOD COUNT W/DIF F MPV 10.2 fL 8.0-11 .0 normal Not Available [address] [place], [address] 06/16/2024 15:02:01 06/16/20 24 06/16/2024 COMPL ETE BLOOD COUNT W/DIF F neutrophils % 61.1 % Not Available [address] [place], [address] 06/16/2024 15:02:01 06/16/20 24 06/16/2024 COMPL ETE BLOOD COUNT W/DIF F lymphocytes % 29.4 % Not Available [address] [place], [address] 06/16/2024 15:02:01 06/16/20 24 06/16/2024 COMPL ETE BLOOD COUNT W/DIF F monocytes % 6.9 % Not Available [address] [place], [address] 06/16/2024 15:02:01 06/16/20 24 06/16/2024 COMPL ETE BLOOD COUNT W/DIF F eosinophils % 1.5 % Not Available [address] [place], [address] 06/16/2024 15:02:01 06/16/20 24 06/16/2024 COMPL ETE BLOOD COUNT W/DIF F basophils % 0.6 % Not Available [address] [place], [address] 06/16/2024 15:02:01 06/16/20 24 06/16/2024 COMPL ETE BLOOD COUNT W/DIF F immature grans % 0.5 % Not Available [address] [place], [address] 06/16/2024 15:02:01 06/16/20 24 06/16/2024 COMPL ETE BLOOD COUNT W/DIF F nucleated RBC 0.0 % 0.0-0. 3 normal Not Available [address] [place], [address] 06/16/2024 15:02:01 06/16/20 24 06/16/2024 COMPL ETE BLOOD COUNT W/DIF F absolute neutrophil count 6.59 10_3/ uL 1.2-6. 7 normal Not Available [address] [place], [address] 06/16/2024 15:02:01 06/16/20 24 06/16/2024 COMPL ETE BLOOD COUNT W/DIF F absolute lymphocyte count 3.17 10_3/ uL 1.2-3. 4 normal Not Available [address] [place], [address] 06/16/2024 15:02:01 06/16/20 24 06/16/2024 COMPL ETE BLOOD COUNT W/DIF F absolute monocyte count 0.74 10_3/ uL 0.1-0. 8 normal Not Available [address] [place], [address] 06/16/2024 15:02:01 06/16/20 24 06/16/2024 COMPL ETE BLOOD COUNT W/DIF F absolute eosinophil count 0.16 10_3/ uL 0.0-0. 7 normal Not Available [address] [place], [address] 06/16/2024 15:02:01 06/16/20 24 06/16/2024 COMPL ETE BLOOD COUNT W/DIF F absolute basophil count 0.07 10_3/ uL 0.0-0. 2 normal Not Available [address] [place], [address] 06/16/2024 15:02:01 06/16/20 24 06/16/2024 BASIC METAB OLIC PANEL calcium 9.1 mg/dL 8.5-10 .1 normal Not Available [address] [place], [address] 06/16/2024 14:45:56 06/16/20 24 06/16/2024 BASIC METAB OLIC PANEL glucose 126 mg/dL 74-106 high Not Available Marilin oliver [address] [place], [address] 06/16/2024 14:45:56 06/16/2006/16/2024 BASIC METAB OLIC PANEL BUN 26 mg/dL 7-18 high Not Available Marilin oliver [address] [place], [address] 06/16/2024 14:45:56 06/16/20 24 06/16/2024 BASIC METAB OLIC PANEL creatinine 1.7 mg/dL 0.55-1 .02 high Not Available [address] [place], [address] 06/16/2024 14:45:56 06/16/2006/16/2024 BASIC METAB OLIC PANEL [...] young er-ag ed adult s. Not Available [address] [place], [address] 06/16/2024 14:45:56 06/16/2006/16/2024 BASIC METAB OLIC PANEL sodium 139 mmol/ L 136-14 5 normal Not Available [address] [place], [address] 06/16/2024 14:45:56 06/16/20 24 06/16/2024 BASIC METAB OLIC PANEL potassium 3.4 mmol/ L 3.5-5. 1 low Not Available [address] [place], [address] 06/16/2024 14:45:56 06/16/20 24 06/16/2024 BASIC METAB OLIC PANEL chloride 104 mmol/ L 98-107 normal Not Available [address] [place], [address] 06/16/2024 14:45:56 06/16/20 24 06/16/2024 BASIC METAB OLIC PANEL CO2 25.3 mmol/ L 21.0-3 2.0 normal Not Available [address] [place], [address] 06/16/2024 14:45:56 06/16/20 24 06/16/2024 BASIC METAB OLIC PANEL anion gap 9.7 mmol/ L 3-11 normal Not Available [address] [place], [address] 06/16/2024 14:45:56 06/17/20 24 06/17/2024 BASIC METAB OLIC PANEL calcium 9.0 mg/dL 8.5-10 .1 normal Not Available [address] [place], [address] 06/17/2024 11:32:16 06/17/20 24 06/17/2024 BASIC METAB OLIC PANEL glucose 116 mg/dL 74-106 high Not Available Marilin [address] [place], [address] 06/17/2024 11:32:16 06/17/20 24 06/17/2024 BASIC METAB OLIC PANEL BUN 21 mg/dL 7-18 high Not Available Marilin [address] [place], [address] 06/17/2024 11:32:16 06/17/20 24 06/17/2024 BASIC METAB OLIC PANEL creatinine 1.5 mg/dL 0.55-1 .02 high Not Available [address] [place], [address] 06/17/2024 11:32:16 06/17/20 24 06/17/2024 BASIC METAB [...] young er-ag ed adult s. Not Available [address] [place], [address] 06/17/2024 11:32:16 06/17/20 24 06/17/2024 BASIC METAB OLIC PANEL sodium 139 mmol/ L 136-14 5 normal Not Available [address] [place], [address] 06/17/2024 11:32:16 06/17/20 24 06/17/2024 BASIC METAB OLIC PANEL potassium 3.3 mmol/ L 3.5-5. 1 low Not Available [address] [place], [address] 06/17/2024 11:32:16 06/17/20 24 06/17/2024 BASIC METAB OLIC PANEL chloride 107 mmol/ L 98-107 normal Not Available [address] [place], [address] 06/17/2024 11:32:16 06/17/20 24 06/17/2024 BASIC METAB OLIC PANEL CO2 21.5 mmol/ L 21.0-3 2.0 normal Not Available [address] [place], [address] 06/17/2024 11:32:16 06/17/20 24 06/17/2024 BASIC METAB OLIC PANEL anion gap 10.5 mmol/ L 3-11 normal Not Available [address] [place], [address] 06/17/2024 11:32:16 06/17/20 24 06/17/2024 HEMOG LOBIN [...] pleme nt 1):S1 3-s28 . Not Available [address] [place], [address] 06/17/2024 06:25:25 06/17/2006/17/2024 BASIC METAB OLIC PANEL calcium 9.0 mg/dL 8.5-10 .1 normal Not Available [address] [place], [address] 06/17/2024 05:57:23 06/17/20 24 06/17/2024 BASIC METAB OLIC PANEL glucose 107 mg/dL 74-106 high Not Available Marilin oliver [address] [place], [address] 06/17/2024 05:57:23 06/17/20 24 06/17/2024 BASIC METAB OLIC PANEL BUN 23 mg/dL 7-18 high Not Available Marilin oliver [address] [place], [address] 06/17/2024 05:57:23 06/17/20 24 06/17/2024 BASIC METAB OLIC PANEL creatinine 1.5 mg/dL 0.55-1 .02 high Not Available [address] [place], [address] 06/17/2024 05:57:23 06/17/2006/17/2024 BASIC METAB OLIC PANEL estimated GFR [...] young er-ag ed adult s. Not Available [address] [place], [address] 06/17/2024 05:57:23 06/17/20 24 06/17/2024 BASIC METAB OLIC PANEL sodium 141 mmol/ L 136-14 5 normal Not Available [address] [place], [address] 06/17/2024 05:57:23 06/17/20 24 06/17/2024 BASIC METAB OLIC PANEL potassium 2.9 mmol/ L 3.5-5. 1 critical low Criti shea value repor liz to and readb ack from FÉLIX CHU (RN), MS at 0554 06/17 by LAB.I DOTTIE Not Available [address] [place], [address] 06/17/2024 05:57:23 06/17/20 24 06/17/2024 BASIC METAB OLIC PANEL chloride 109 mmol/ L 98-107 high Not Available [address] [place], [address] 06/17/2024 05:57:23 06/17/20 24 06/17/2024 BASIC METAB OLIC PANEL CO2 20.7 mmol/ L 21.0-3 2.0 low Not Available [address] [place], [address] 06/17/2024 05:57:23 06/17/20 24 06/17/2024 BASIC METAB OLIC PANEL anion gap 11.3 mmol/ L 3-11 high Not Available [address] [place], [address] 06/17/2024 05:57:23 06/17/20 24 06/17/2024 COMPL ETE BLOOD COUNT W/DIF F WBC 8.86 10_3/ uL 4.4-10 .8 normal Not Available [address] [place], [address] 06/17/2024 05:44:23 06/17/20 24 06/17/2024 COMPL ETE BLOOD COUNT W/DIF F RBC 3.36 10_6/ uL 3.93-5 .22 low Not Available [address] [place], [address] 06/17/2024 05:44:23 06/17/20 24 06/17/2024 COMPL ETE BLOOD COUNT W/DIF F HGB 10.4 g/dL 11.2-1 5.7 low Not Available [address] [place], [address] 06/17/2024 05:44:23 06/17/20 24 06/17/2024 COMPL ETE BLOOD COUNT W/DIF F HCT 29.8 % 36.0-4 6.0 low Not Available [address] [place], [address] 06/17/2024 05:44:23 06/17/20 24 06/17/2024 COMPL ETE BLOOD COUNT W/DIF F MCV 89 fL 80-95 normal Not Available [address] [place], [address] 06/17/2024 05:44:23 06/17/20 24 06/17/2024 COMPL ETE BLOOD COUNT W/DIF F MCH 31.0 pg 27.0-3 3.0 normal Not Available [address] [place], [address] 06/17/2024 05:44:23 06/17/20 24 06/17/2024 COMPL ETE BLOOD COUNT W/DIF F MCHC 34.9 % 32.0-3 6.0 normal Not Available [address] [place], [address] 06/17/2024 05:44:23 06/17/20 24 06/17/2024 COMPL ETE BLOOD COUNT W/DIF F RDW 12.3 % 11.7-1 4.6 normal Not Available [address] [place], [address] 06/17/2024 05:44:23 06/17/20 24 06/17/2024 COMPL ETE BLOOD COUNT W/DIF F platelet count 219 10_3/ uL 130-40 0 normal Not Available [address] [place], [address] 06/17/2024 05:44:23 06/17/20 24 06/17/2024 COMPL ETE BLOOD COUNT W/DIF F MPV 10.5 fL 8.0-11 .0 normal Not Available [address] [place], [address] 06/17/2024 05:44:23 06/17/20 24 06/17/2024 COMPL ETE BLOOD COUNT W/DIF F neutrophils % 51.9 % Not Available [address] [place], [address] 06/17/2024 05:44:23 06/17/20 24 06/17/2024 COMPL ETE BLOOD COUNT W/DIF F lymphocytes % 37.2 % Not Available [address] [place], [address] 06/17/2024 05:44:23 06/17/20 24 06/17/2024 COMPL ETE BLOOD COUNT W/DIF F monocytes % 7.4 % Not Available [address] [place], [address] 06/17/2024 05:44:23 06/17/20 24 06/17/2024 COMPL ETE BLOOD COUNT W/DIF F eosinophils % 2.7 % Not Available [address] [place], [address] 06/17/2024 05:44:23 06/17/20 24 06/17/2024 COMPL ETE BLOOD COUNT W/DIF F basophils % 0.6 % Not Available [address] [place], [address] 06/17/2024 05:44:23 06/17/20 24 06/17/2024 COMPL ETE BLOOD COUNT W/DIF F immature grans % 0.2 % Not Available [address] [place], [address] 06/17/2024 05:44:23 06/17/20 24 06/17/2024 COMPL ETE BLOOD COUNT W/DIF F nucleated RBC 0.0 % 0.0-0. 3 normal Not Available [address] [place], [address] 06/17/2024 05:44:23 06/17/20 24 06/17/2024 COMPL ETE BLOOD COUNT W/DIF F absolute neutrophil count 4.59 10_3/ uL 1.2-6. 7 normal Not Available [address] [place], [address] 06/17/2024 05:44:23 06/17/20 24 06/17/2024 COMPL ETE BLOOD COUNT W/DIF F absolute lymphocyte count 3.30 10_3/ uL 1.2-3. 4 normal Not Available [address] [place], [address] 06/17/2024 05:44:23 06/17/20 24 06/17/2024 COMPL ETE BLOOD COUNT W/DIF F absolute monocyte count 0.66 10_3/ uL 0.1-0. 8 normal Not Available [address] [place], [address] 06/17/2024 05:44:23 06/17/20 24 06/17/2024 COMPL ETE BLOOD COUNT W/DIF F absolute eosinophil count 0.24 10_3/ uL 0.0-0. 7 normal Not Available [address] [place], [address] 06/17/2024 05:44:23 06/17/20 24 06/17/2024 COMPL ETE BLOOD COUNT W/DIF F absolute basophil count 0.05 10_3/ uL 0.0-0. 2 normal Not Available [address] [place], [address] 06/17/2024 05:44:23 07/02/20 24 07/02/2024 BASIC METAB OLIC PANEL calcium 9.3 mg/dL 8.5-10 .1 normal Not Available [address] [place], [address] 07/02/2024 16:18:07 07/02/20 24 07/02/2024 BASIC METAB OLIC PANEL glucose 110 mg/dL 74-106 high Not Available Marilin oliver [address] [place], [address] 07/02/2024 16:18:07 07/02/20 24 07/02/2024 BASIC METAB OLIC PANEL BUN 40 mg/dL 7-18 high Not Available Marilin oliver [address] [place], [address] 07/02/2024 16:18:07 07/02/20 24 07/02/2024 BASIC METAB OLIC PANEL creatinine 1.6 mg/dL 0.55-1 .02 high Not Available [address] [place], [address] 07/02/2024 16:18:07 07/02/20 24 07/02/2024 BASIC METAB [...] young er-ag ed adult s. Not Available [address] [place], [address] 07/02/2024 16:18:07 07/02/20 24 07/02/2024 BASIC METAB OLIC PANEL sodium 147 mmol/ L 136-14 5 high Not Available [address] [place], [address] 07/02/2024 16:18:07 07/02/20 24 07/02/2024 BASIC METAB OLIC PANEL potassium 3.9 mmol/ L 3.5-5. 1 normal Not Available [address] [place], [address] 07/02/2024 16:18:07 07/02/20 24 07/02/2024 BASIC METAB OLIC PANEL chloride 116 mmol/ L 98-107 high Not Available [address] [place], [address] 07/02/2024 16:18:07 07/02/20 24 07/02/2024 BASIC METAB OLIC PANEL CO2 17.4 mmol/ L 21.0-3 2.0 low Not Available [address] [place], [address] 07/02/2024 16:18:07 07/02/20 24 07/02/2024 BASIC METAB OLIC PANEL anion gap 13.6 mmol/ L 3-11 high Not Available [address] [place], [address] 07/02/2024 16:18:07 07/09/20 24 07/09/2024 COMPL ETE BLOOD COUNT W/DIF F WBC 10.14 10_3/ uL 4.4-10 .8 normal Not Available [address] [place], [address] 07/09/2024 16:14:29 07/09/2007/09/2024 COMPL ETE BLOOD COUNT W/DIF F RBC 3.43 10_6/ uL 3.93-5 .22 low Not Available [address] [place], [address] 07/09/2024 16:14:29 07/09/20 24 07/09/2024 COMPL ETE BLOOD COUNT W/DIF F HGB 10.4 g/dL 11.2-1 5.7 low Not Available [address] [place], [address] 07/09/2024 16:14:29 07/09/20 24 07/09/2024 COMPL ETE BLOOD COUNT W/DIF F HCT 32.0 % 36.0-4 6.0 low Not Available [address] [place], [address] 07/09/2024 16:14:29 07/09/20 24 07/09/2024 COMPL ETE BLOOD COUNT W/DIF F MCV 93 fL 80-95 normal Not Available Marilin [address] [place], [address] 07/09/2024 16:14:29 07/09/2007/09/2024 COMPL ETE BLOOD COUNT W/DIF F MCH 30.3 pg 27.0-3 3.0 normal Not Available [address] [place], [address] 07/09/2024 16:14:29 07/09/20 24 07/09/2024 COMPL ETE BLOOD COUNT W/DIF F MCHC 32.5 % 32.0-3 6.0 normal Not Available [address] [place], [address] 07/09/2024 16:14:29 07/09/20 24 07/09/2024 COMPL ETE BLOOD COUNT W/DIF F RDW 13.6 % 11.7-1 4.6 normal Not Available [address] [place], [address] 07/09/2024 16:14:29 07/09/20 24 07/09/2024 COMPL ETE BLOOD COUNT W/DIF F platelet count 286 10_3/ uL 130-40 0 normal Not Available [address] [facility] [place], [address] 07/09/2024 16:14:29 07/09/20 24 07/09/2024 COMPL ETE BLOOD COUNT W/DIF F MPV 11.3 fL 8.0-11 .0 high Not Available [address] [place], [address] 07/09/2024 16:14:29 07/09/20 24 07/09/2024 COMPL ETE BLOOD COUNT W/DIF F neutrophils % 75.1 % Not Available [address] [facility] [place], [address] 07/09/2024 16:14:29 07/09/20 24 07/09/2024 COMPL ETE BLOOD COUNT W/DIF F lymphocytes % 16.1 % Not Available [address] [facility] [place], [address] 07/09/2024 16:14:29 07/09/20 24 07/09/2024 COMPL ETE BLOOD COUNT W/DIF F monocytes % 6.5 % Not Available [address] [facility] [place], [address] 07/09/2024 16:14:29 07/09/20 24 07/09/2024 COMPL ETE BLOOD COUNT W/DIF F eosinophils % 1.3 % Not Available [address] [facility] [place], [address] 07/09/2024 16:14:29 07/09/20 24 07/09/2024 COMPL ETE BLOOD COUNT W/DIF F basophils % 0.6 % Not Available [address] [place], [address] 07/09/2024 16:14:29 07/09/20 24 07/09/2024 COMPL ETE BLOOD COUNT W/DIF F immature grans % 0.4 % Not Available [facility] [email or web address] [place], [address] 07/09/2024 16:14:29 07/09/20 24 07/09/2024 COMPL ETE BLOOD COUNT W/DIF F nucleated RBC 0.0 % 0.0-0. 3 normal Not Available [address] [place], [address] 07/09/2024 16:14:29 07/09/2007/09/2024 COMPL ETE BLOOD COUNT W/DIF F absolute neutrophil count 7.62 10_3/ uL 1.2-6. 7 high Not Available [address] [place], [address] 07/09/2024 16:14:29 07/09/2007/09/2024 COMPL ETE BLOOD COUNT W/DIF F absolute lymphocyte count 1.63 10_3/ uL 1.2-3. 4 normal Not Available [address] [place], [address] 07/09/2024 16:14:29 07/09/20 24 07/09/2024 COMPL ETE BLOOD COUNT W/DIF F absolute monocyte count 0.66 10_3/ uL 0.1-0. 8 normal Not Available [address] [place], [address] 07/09/2024 16:14:29 07/09/20 24 07/09/2024 COMPL ETE BLOOD COUNT W/DIF F absolute eosinophil count 0.13 10_3/ uL 0.0-0. 7 normal Not Available [address] [place], [address] 07/09/2024 16:14:29 07/09/20 24 07/09/2024 COMPL ETE BLOOD COUNT W/DIF F absolute basophil count 0.06 10_3/ uL 0.0-0. 2 normal Not Available [address] [place], [address] 07/09/2024 16:14:29 07/09/20 24 07/09/2024 BASIC METAB OLIC PANEL calcium 9.2 mg/dL 8.5-10 .1 normal Not Available [address] [place], [address] 07/09/2024 16:20:26 07/09/20 24 07/09/2024 BASIC METAB OLIC PANEL glucose 228 mg/dL 74-106 high Not Available Marilin oliver [address] [place], [address] 07/09/2024 16:20:26 07/09/20 24 07/09/2024 BASIC METAB OLIC PANEL BUN 45 mg/dL 7-18 high Not Available Marilin oliver [address] [place], [address] 07/09/2024 16:20:26 07/09/20 24 07/09/2024 BASIC METAB OLIC PANEL creatinine 1.9 mg/dL 0.55-1 .02 high Not Available [address] [place], [address] 07/09/2024 16:20:26 07/09/20 24 07/09/2024 BASIC METAB [...] young er-ag ed adult s. Not Available [address] [place], [address] 07/09/2024 16:20:26 07/09/20 24 07/09/2024 BASIC METAB OLIC PANEL sodium 147 mmol/ L 136-14 5 high Not Available [address] [place], [address] 07/09/2024 16:20:26 10/18/20 24 07/09/2024 BASIC METAB OLIC PANEL potassium 3.4 mmol/ L 3.5-5. 1 low Not Available [address] [place], [address] 07/09/2024 16:20:26 07/09/20 24 07/09/2024 BASIC METAB OLIC PANEL chloride 112 mmol/ L 98-107 high Not Available [address] [place], [address] 07/09/2024 16:20:26 07/09/20 24 07/09/2024 BASIC METAB OLIC PANEL CO2 19.6 mmol/ L 21.0-3 2.0 low Not Available [address] [place], [address] 07/09/2024 16:20:26 07/09/20 24 07/09/2024 BASIC METAB OLIC PANEL anion gap 15.4 mmol/ L 3-11 high Not Available [address] [place], [address] 07/09/2024 16:20:26 07/09/20 24 07/09/2024 MAGNE SIUM magnesium 1.9 mg/dL 1.8-2. 4 normal Not Available [address] [place], [address] 07/09/2024 16:20:27 07/12/2007/12/2024 URINA LYSIS color Yellow yellow Not Available Marilin oliver [address] [place], [address] 07/12/2024 20:18:48 07/12/2007/12/2024 URINA LYSIS clarity Clear clear Not Available Marilin oliver [address] [place], [address] 07/12/2024 20:18:48 07/12/2007/12/2024 URINA LYSIS specific gravity 1.020 1.005- 1.025 normal Not Available [address] [place], [address] 07/12/2024 20:18:48 07/12/20 24 07/12/2024 URINA LYSIS pH 5.5 5-8 normal Not Available Marilin oliver [address] [place], [address] 07/12/2024 20:18:48 07/12/2007/12/2024 URINA LYSIS leukocyte esterase Negati ve negati ve Not Available [address] [place], [address] 07/12/2024 20:18:48 07/12/2007/12/2024 URINA LYSIS nitrite Negati ve negati ve Not Available [address] [place], [address] 07/12/2024 20:18:48 07/12/2007/12/2024 URINA LYSIS protein Trace mg/dL neg-tr erendira Not Available [address] [place], [address] 07/12/2024 20:18:48 07/12/2007/12/2024 URINA LYSIS glucose Negati ve mg/dL negati ve Not Available [address] [place], [address] 07/12/2024 20:18:48 07/12/2007/12/2024 URINA LYSIS ketones Negati ve mg/dL negati ve Not Available [address] [place], [address] 07/12/2024 20:18:48 07/12/2007/12/2024 URINA LYSIS urobilinogen 0.2 mg/dL up to 0.2 Not Available [address] [place], [address] 07/12/2024 20:18:48 07/12/2007/12/2024 URINA LYSIS bilirubin Negati ve negati ve Not Available [address] [place], [address] 07/12/2024 20:18:48 07/12/2007/12/2024 URINA LYSIS blood Negati ve negati ve Not Available [address] [place], [address] 07/12/2024 20:18:48 07/12/2007/13/2024 URINE CULTU RE urine culture Urine Cultu re Day 1 Resul t NO GROWT H 24 HOURS Not Available [address] [place], [address] 07/13/2024 12:29:16 07/12/2007/14/2024 URINE CULTU RE urine culture Urine Cultu re APPEA DEBBIE Gram Posit jr Haylee COLON Y COUNT Not Available [address] [place], [address] 07/14/2024 08:16:51 07/12/2007/14/2024 URINE CULTU RE urine culture colon ies/m L <10,0 00 Day 1 Resul t NO GROWT H 24 HOURS Day 2 Resul t ISOLA RAISA BELOW O:GPF (ORGA NISM ID: [id number]) - GRAM POSIT JR HAYLEE Urine Cultu re (ORGA NISM ID: [id number]) - COLON Y COUNT (ORGA NISM ID: [id number]) - <10,0 00 Not Available [address] [place], [address] 07/14/2024 08:16:51 07/15/20 24 07/15/2024 COMPL ETE BLOOD COUNT W/DIF F WBC 17.56 10_3/ uL 4.4-10 .8 high Not Available [address] [place], [address] 07/15/2024 16:03:58 07/15/20 24 07/15/2024 COMPL ETE BLOOD COUNT W/DIF F RBC 3.73 10_6/ uL 3.93-5 .22 low Not Available [address] [place], [address] 07/15/2024 16:03:58 07/15/2007/15/2024 COMPL ETE BLOOD COUNT W/DIF F HGB 11.3 g/dL 11.2-1 5.7 normal Not Available [address] [place], [address] 07/15/2024 16:03:58 07/15/2007/15/2024 COMPL ETE BLOOD COUNT W/DIF F HCT 32.4 % 36.0-4 6.0 low Not Available [address] [place], [address] 07/15/2024 16:03:58 07/15/2007/15/2024 COMPL ETE BLOOD COUNT W/DIF F MCV 87 fL 80-95 normal Not Available [address] [place], [address] 07/15/2024 16:03:58 07/15/2007/15/2024 COMPL ETE BLOOD COUNT W/DIF F MCH 30.3 pg 27.0-3 3.0 normal Not Available [address] [place], [address] 07/15/2024 16:03:58 07/15/2007/15/2024 COMPL ETE BLOOD COUNT W/DIF F MCHC 34.9 % 32.0-3 6.0 normal Not Available [address] [place], [address] 07/15/2024 16:03:58 07/15/2007/15/2024 COMPL ETE BLOOD COUNT W/DIF F RDW 13.1 % 11.7-1 4.6 normal Not Available [address] [place], [address] 07/15/2024 16:03:58 07/15/2007/15/2024 COMPL ETE BLOOD COUNT W/DIF F platelet count 351 10_3/ uL 130-40 0 normal Not Available [address] [place], [address] 07/15/2024 16:03:58 07/15/2007/15/2024 COMPL ETE BLOOD COUNT W/DIF F MPV 11.0 fL 8.0-11 .0 normal Not Available [address] [place], [address] 07/15/2024 16:03:58 07/15/2007/15/2024 COMPL ETE BLOOD COUNT W/DIF F neutrophils % 62.1 % Not Available [address] [place], [address] 07/15/2024 16:03:58 07/15/2007/15/2024 COMPL ETE BLOOD COUNT W/DIF F lymphocytes % 27.7 % Not Available [address] [place], [address] 07/15/2024 16:03:58 07/15/2007/15/2024 COMPL ETE BLOOD COUNT W/DIF F monocytes % 5.9 % Not Available [address] [place], [address] 07/15/2024 16:03:58 07/15/2007/15/2024 COMPL ETE BLOOD COUNT W/DIF F eosinophils % 2.1 % Not Available [address] [place], [address] 07/15/2024 16:03:58 07/15/2007/15/2024 COMPL ETE BLOOD COUNT W/DIF F basophils % 0.7 % Not Available [address] [place], [address] 07/15/2024 16:03:58 07/15/2007/15/2024 COMPL ETE BLOOD COUNT W/DIF F immature grans % 1.5 % Not Available [address] [place], [address] 07/15/2024 16:03:58 07/15/2007/15/2024 COMPL ETE BLOOD COUNT W/DIF F nucleated RBC 0.0 % 0.0-0. 3 normal Not Available [address] [place], [address] 07/15/2024 16:03:58 07/15/2007/15/2024 COMPL ETE BLOOD COUNT W/DIF F absolute neutrophil count 10.90 10_3/ uL 1.2-6. 7 high Not Available [address] [place], [address] 07/15/2024 16:03:58 07/15/2007/15/2024 COMPL ETE BLOOD COUNT W/DIF F absolute lymphocyte count 4.86 10_3/ uL 1.2-3. 4 high Not Available [address] [place], [address] 07/15/2024 16:03:58 07/15/20 24 07/15/2024 COMPL ETE BLOOD COUNT W/DIF F absolute monocyte count 1.04 10_3/ uL 0.1-0. 8 high Not Available [address] [place], [address] 07/15/2024 16:03:58 07/15/20 24 07/15/2024 COMPL ETE BLOOD COUNT W/DIF F absolute eosinophil count 0.37 10_3/ uL 0.0-0. 7 normal Not Available [address] [place], [address] 07/15/2024 16:03:58 07/15/2007/15/2024 COMPL ETE BLOOD COUNT W/DIF F absolute basophil count 0.12 10_3/ uL 0.0-0. 2 normal Not Available [address] [place], [address] 07/15/2024 16:03:58 07/15/2007/15/2024 OCCUL T BLOOD STOOL GUAIA C(1SP ) occult blood stool guaiac(1sp) Occul t Blood Stool Guaia c(1sp ) STOOL OCCUL T BLOOD #1 NEGAT JR Not Available [address] [place], [address] 07/15/2024 17:04:06 07/16/2007/16/2024 TROPO LOPEZ I troponin [...] Bioti n (Aline min B7). Not Available [address], [place], [address] 07/16/2024 17:40:34 07/16/2007/16/2024 TROPO LOPEZ I troponin [...] Bioti n (Aline min B7). Not Available [address] , [place], [address] 07/16/2024 16:33:29 07/16/2007/18/2024 URINE CULTU RE urine culture Urine Cultu re ACTIO N ID AND SUSCE PTIBI LITY TO FOLLO W APPEA DEBBIE Gram Negat jr Eugene APPEA DEBBIE Gram Negat jr Eugene COLON Y COUNT Not Available [address] [place], [address] 07/18/2024 07:55:55 07/16/2007/18/2024 URINE CULTU RE urine [...] zobac tarango S <=4 F Not Available [address] [place], [address] 07/18/2024 07:55:55 07/16/2007/16/2024 MICRO SCOPI C FINDI NGS WBC >50 hpf 0-5 abnormal Not Available [address] [place], [address] 07/16/2024 16:16:24 07/16/2007/16/2024 MICRO SCOPI C FINDI NGS RBC 3-5 hpf 0-2 abnormal Not Available [address] [place], [address] 07/16/2024 16:16:24 07/16/2007/16/2024 MICRO SCOPI C FINDI NGS epithelial cells Few hpf negati ve Not Available [address] [place], [address] 07/16/2024 16:16:24 07/16/2007/16/2024 MICRO SCOPI C FINDI NGS other cells Negati ve negati ve Not Available [address] [place], [address] 07/16/2024 16:16:24 07/16/20 24 07/16/2024 MICRO SCOPI C FINDI NGS bacteria Packed hpf negati ve Not Available [address] [place], [address] 07/16/2024 16:16:24 07/16/2007/16/2024 MICRO SCOPI C FINDI NGS crystals Negati ve hpf negati ve Not Available [address] [place], [address] 07/16/2024 16:16:24 07/16/20 24 07/16/2024 MICRO SCOPI C FINDI NGS mucus Negati ve negati ve Not Available [address] [place], [address] 07/16/2024 16:16:24 07/16/20 24 07/16/2024 MICRO SCOPI C FINDI NGS casts Negati ve lpf negati ve Not Available [address] [place], [address] 07/16/2024 16:16:24 07/16/20 24 07/16/2024 MICRO SCOPI C FINDI NGS C S indicated? Yes Not Available [address] [place], [address] 07/16/2024 16:16:24 07/16/2007/16/2024 URINA LYSIS color Yellow yellow Not Available Marilin oliver [address] [place], [address] 07/16/2024 16:16:23 07/16/2007/16/2024 URINA LYSIS clarity Sl Cloudy clear Not Available Tiffani pina [address] [place], [address] 07/16/2024 16:16:23 07/16/2007/16/2024 URINA LYSIS specific gravity 1.010 1.005- 1.025 normal Not Available [address] [place], [address] 07/16/2024 16:16:23 07/16/2007/16/2024 URINA LYSIS pH 6.0 5-8 normal Not Available Marilin oliver [address] [place], [address] 07/16/2024 16:16:23 07/16/2007/16/2024 URINA LYSIS leukocyte esterase Large negati ve abnormal Not Available [address] [place], [address] 07/16/2024 16:16:23 07/16/2007/16/2024 URINA LYSIS nitrite Positi ve negati ve abnormal Not Available [address] [place], [address] 07/16/2024 16:16:23 07/16/20 24 07/16/2024 URINA LYSIS protein Trace mg/dL neg-tr erendira Not Available [address] [place], [id number] 07/16/2024 16:16:23 07/16/20 24 07/16/2024 URINA LYSIS glucose Negati ve mg/dL negati ve Not Available [address] [place], [address] 07/16/2024 16:16:23 07/16/20 24 07/16/2024 URINA LYSIS ketones Negati ve mg/dL negati ve Not Available [address] [place], [address] 07/16/2024 16:16:23 07/16/20 24 07/16/2024 URINA LYSIS urobilinogen 0.2 mg/dL up to 0.2 Not Available [address] [place], [address] 07/16/2024 16:16:23 07/16/2007/16/2024 URINA LYSIS bilirubin Negati ve negati ve Not Available [address] [place], [address] 07/16/2024 16:16:23 07/16/2007/16/2024 URINA LYSIS blood Trace- lysed negati ve abnormal Not Available [address] [place], [address] 07/16/2024 16:16:23 07/16/2007/16/2024 URINA LYSIS color Yellow yellow Not Available Marilin oliver [address] [place], [address] 07/16/2024 16:10:18 07/16/2007/16/2024 URINA LYSIS clarity Sl Cloudy clear Not Available Tiffani pina [address] [place], [id number] 07/16/2024 16:10:18 07/16/2007/16/2024 URINA LYSIS specific gravity 1.010 1.005- 1.025 normal Not Available [address] [place], [address] 07/16/2024 16:10:18 07/16/20 24 07/16/2024 URINA LYSIS pH 6.0 5-8 normal Not Available Marilin oliver [address] [place], [id number] 07/16/2024 16:10:18 07/16/2007/16/2024 URINA LYSIS leukocyte esterase Large negati ve abnormal Not Available [address] [place], [address] 07/16/2024 16:10:18 07/16/2007/16/2024 URINA LYSIS nitrite Positi ve negati ve abnormal Not Available [address] [place], [address] 07/16/2024 16:10:18 07/16/2007/16/2024 URINA LYSIS protein Trace mg/dL neg-tr erendira Not Available [address] [place], [address] 07/16/2024 16:10:18 07/16/2007/16/2024 URINA LYSIS glucose Negati ve mg/dL negati ve Not Available [address] [place], [address] 07/16/2024 16:10:18 07/16/2007/16/2024 URINA LYSIS ketones Negati ve mg/dL negati ve Not Available [address] [place], [address] 07/16/2024 16:10:18 07/16/2007/16/2024 URINA LYSIS urobilinogen 0.2 mg/dL up to 0.2 Not Available [address] [place], [address] 07/16/2024 16:10:18 07/16/2007/16/2024 URINA LYSIS bilirubin Negati ve negati ve Not Available [address] [place], [address] 07/16/2024 16:10:18 07/16/2007/16/2024 URINA LYSIS blood Trace- lysed negati ve abnormal Not Available [address] [place], [address] 07/16/2024 16:10:18 07/16/2007/17/2024 URINE CULTU RE urine culture Urine Cultu re ACTIO N ID AND SUSCE PTIBI LITY TO FOLLO W APPEA DEBBIE Gram Negat jr Eugene COLON Y COUNT Not Available [address] [place]verna [facility] [place], [address] 07/17/2024 11:54:46 07/16/2007/17/2024 URINE CULTU RE urine culture colon ies/m L >100, 000 Day 1 Resul t ISOLA RAISA BELOW O:GNR (ORGA NISM ID: 1.1) - GRAM NEGAT JR EUGENE Urine Cultu re (ORGA NISM ID: 1.1) - COLON Y COUNT (ORGA NISM ID: 1.1) - >100, 000 Not Available [address] [place], [address] 07/17/2024 11:54:46 07/16/2007/16/2024 TROPO LOPEZ I troponin [...] Bioti n (Aline min B7). Not Available [address] [place] [facility] [place], [address] 07/16/2024 14:34:00 07/16/2007/16/2024 MAGNE SIUM magnesium 2.1 mg/dL 1.8-2. 4 normal Not Available [address] [facility] [place], [address] 07/16/2024 14:34:00 07/16/2007/16/2024 COMPR EHENS JR METAB OLIC PANEL calcium 9.5 mg/dL 8.5-10 .1 normal Not Available [address] [place], [address] 07/16/2024 14:33:59 07/16/2007/16/2024 COMPR EHENS JR METAB OLIC PANEL glucose 142 mg/dL 74-106 high Not Available Marilin oliver [address] [place], [address] 07/16/2024 14:33:59 07/16/20 24 07/16/2024 COMPR EHENS JR METAB OLIC PANEL BUN 35 mg/dL 7-18 high Not Available Marilin oliver [address] [place], [address] 07/16/2024 14:33:59 07/16/2007/16/2024 COMPR EHENS JR METAB OLIC PANEL creatinine 2.1 mg/dL 0.55-1 .02 high Not Available [address] [facility] [place], [address] 07/16/2024 14:33:59 07/16/2007/16/2024 COMPR EHENS JR METAB [...] young er-ag ed adult s. Not Available [address] [facility] [place], [address] 07/16/2024 14:33:59 07/16/2007/16/2024 COMPR EHENS JR METAB OLIC PANEL total protein 7.4 g/dL 6.4-8. 2 normal Not Available [address] [place], [address] 07/16/2024 14:33:59 07/16/20 24 07/16/2024 COMPR EHENS JR METAB OLIC PANEL albumin 3.4 g/dL 3.4-5. 0 normal Not Available [address] [place], [address] 07/16/2024 14:33:59 07/16/2007/16/2024 COMPR EHENS JR METAB OLIC PANEL bilirubin, total 0.41 mg/dL 0.2-1. 0 normal Not Available [address] [place], [address] 07/16/2024 14:33:59 07/16/2007/16/2024 COMPR EHENS JR METAB OLIC PANEL alk phos 112 U/L 46-116 normal Not Available [address] [place], [address] 07/16/2024 14:33:59 07/16/2007/16/2024 COMPR EHENS JR METAB OLIC PANEL sodium 141 mmol/ L 136-14 5 normal Not Available [address] [place], [address] 07/16/2024 14:33:59 07/16/2007/16/2024 COMPR EHENS JR METAB OLIC PANEL potassium 2.6 mmol/ L 3.5-5. 1 critical low Criti shea value MAGGIE VILLAGRAN repor liz to and readb javan from [facility] at 1430 07/16 by LAB.B ONC Not Available [address] [place], [address] 07/16/2024 14:33:59 07/16/2007/16/2024 COMPR EHENS JR METAB OLIC PANEL chloride 105 mmol/ L 98-107 normal Not Available [address] [place], [address] 07/16/2024 14:33:59 07/16/2007/16/2024 COMPR EHENS JR METAB OLIC PANEL CO2 22.6 mmol/ L 21.0-3 2.0 normal Not Available [address] [place], [address] 07/16/2024 14:33:59 07/16/2007/16/2024 COMPR EHENS JR METAB OLIC PANEL anion gap 13.4 mmol/ L 3-11 high Not Available [address] [place], [address] 07/16/2024 14:33:59 07/16/2007/16/2024 COMPR EHENS JR METAB OLIC PANEL AST 29 U/L 15-37 normal Not Available Marilin oliver [address] [place], [address] 07/16/2024 14:33:59 07/16/2007/16/2024 COMPR EHENS JR METAB OLIC PANEL ALT 26 U/L 14-59 normal Not Available Marilin oliver [address] [place], [address] 07/16/2024 14:33:59 07/17/2007/17/2024 MAGNE SIUM magnesium 2.0 mg/dL 1.8-2. 4 normal Not Available [address] [place], [address] 07/17/2024 12:10:48 07/17/2007/17/2024 LAB ADD ON TEST lab add on test DONE Not Available Yamil marrero [address] [place], [address] 07/17/2024 11:46:45 07/17/2007/17/2024 BASIC METAB OLIC PANEL calcium 8.8 mg/dL 8.5-10 .1 normal Not Available [address] [place], [address] 07/17/2024 06:55:30 07/17/2007/17/2024 BASIC METAB OLIC PANEL glucose 95 mg/dL 74-106 normal Not Available Marilin oliver [address] [place], [address] 07/17/2024 06:55:30 07/17/2007/17/2024 BASIC METAB OLIC PANEL BUN 30 mg/dL 7-18 high Not Available Marilin oliver [address] [place], [address] 07/17/2024 06:55:30 07/17/2007/17/2024 BASIC METAB OLIC PANEL creatinine 1.8 mg/dL 0.55-1 .02 high Not Available [address] [place], [address] 07/17/2024 06:55:30 07/17/2007/17/2024 BASIC METAB OLIC PANEL [...] young er-ag ed adult s. Not Available [address] [place], [address] 07/17/2024 06:55:30 07/17/2007/17/2024 BASIC METAB OLIC PANEL sodium 146 mmol/ L 136-14 5 high Not Available [address] [place], [address] 07/17/2024 06:55:30 07/17/2007/17/2024 BASIC METAB OLIC PANEL potassium 3.1 mmol/ L 3.5-5. 1 low Not Available [address] [place], [address] 07/17/2024 06:55:30 07/17/2007/17/2024 BASIC METAB OLIC PANEL chloride 111 mmol/ L 98-107 high Not Available [address] [place], [address] 07/17/2024 06:55:30 07/17/2007/17/2024 BASIC METAB OLIC PANEL CO2 23.7 mmol/ L 21.0-3 2.0 normal Not Available [address] [place], [address] 07/17/2024 06:55:30 07/17/2007/17/2024 BASIC METAB OLIC PANEL anion gap 11.3 mmol/ L 3-11 high Not Available [address] [place], [address] 07/17/2024 06:55:30 07/17/2007/17/2024 COMPL ETE BLOOD COUNT W/DIF F WBC 14.09 10_3/ uL 4.4-10 .8 high Not Available [address] [place], [address] 07/17/2024 06:46:28 07/17/2007/17/2024 COMPL ETE BLOOD COUNT W/DIF F RBC 2.98 10_6/ uL 3.93-5 .22 low Not Available [address] [place], [address] 07/17/2024 06:46:28 07/17/2007/17/2024 COMPL ETE BLOOD COUNT W/DIF F HGB 9.2 g/dL 11.2-1 5.7 low Not Available [address] [place], [address] 07/17/2024 06:46:28 07/17/2007/17/2024 COMPL ETE BLOOD COUNT W/DIF F HCT 25.7 % 36.0-4 6.0 low Not Available [address] [place], [address] 07/17/2024 06:46:28 07/17/2007/17/2024 COMPL ETE BLOOD COUNT W/DIF F MCV 86 fL 80-95 normal Not Available [address] [place], [address] 07/17/2024 06:46:28 07/17/2007/17/2024 COMPL ETE BLOOD COUNT W/DIF F MCH 30.9 pg 27.0-3 3.0 normal Not Available [address] [place], [address] 07/17/2024 06:46:28 07/17/2007/17/2024 COMPL ETE BLOOD COUNT W/DIF F MCHC 35.8 % 32.0-3 6.0 normal Not Available [address] [place], [address] 07/17/2024 06:46:28 07/17/2007/17/2024 COMPL ETE BLOOD COUNT W/DIF F RDW 13.2 % 11.7-1 4.6 normal Not Available [address] [place], [address] 07/17/2024 06:46:28 07/17/2007/17/2024 COMPL ETE BLOOD COUNT W/DIF F platelet count 307 10_3/ uL 130-40 0 normal Not Available [address] [place], [address] 07/17/2024 06:46:28 07/17/2007/17/2024 COMPL ETE BLOOD COUNT W/DIF F MPV 10.5 fL 8.0-11 .0 normal Not Available [address] [place], [address] 07/17/2024 06:46:28 07/17/2007/17/2024 COMPL ETE BLOOD COUNT W/DIF F neutrophils % 62.3 % Not Available [address] [place], [address] 07/17/2024 06:46:28 07/17/2007/17/2024 COMPL ETE BLOOD COUNT W/DIF F lymphocytes % 27.3 % Not Available [address] [place], [address] 07/17/2024 06:46:28 07/17/2007/17/2024 COMPL ETE BLOOD COUNT W/DIF F monocytes % 6.4 % Not Available [address] [place], [address] 07/17/2024 06:46:28 07/17/2007/17/2024 COMPL ETE BLOOD COUNT W/DIF F eosinophils % 2.0 % Not Available [address] [place], [address] 07/17/2024 06:46:28 07/17/2007/17/2024 COMPL ETE BLOOD COUNT W/DIF F basophils % 0.4 % Not Available [address] [place], [address] 07/17/2024 06:46:28 07/17/2007/17/2024 COMPL ETE BLOOD COUNT W/DIF F immature grans % 1.6 % Not Available Yamil marrero [address] [place], [address] 07/17/2024 06:46:28 07/17/2007/17/2024 COMPL ETE BLOOD COUNT W/DIF F nucleated RBC 0.0 % 0.0-0. 3 normal Not Available [address] [place], [address] 07/17/2024 06:46:28 07/17/2007/17/2024 COMPL ETE BLOOD COUNT W/DIF F absolute neutrophil count 8.78 10_3/ uL 1.2-6. 7 high Not Available [address] [place], [address] 07/17/2024 06:46:28 07/17/2007/17/2024 COMPL ETE BLOOD COUNT W/DIF F absolute lymphocyte count 3.85 10_3/ uL 1.2-3. 4 high Not Available [address] [place], [address] 07/17/2024 06:46:28 07/17/2007/17/2024 COMPL ETE BLOOD COUNT W/DIF F absolute monocyte count 0.90 10_3/ uL 0.1-0. 8 high Not Available [address] [place], [address] 07/17/2024 06:46:28 07/17/2007/17/2024 COMPL ETE BLOOD COUNT W/DIF F absolute eosinophil count 0.28 10_3/ uL 0.0-0. 7 normal Not Available [address] [place], [address] 07/17/2024 06:46:28 07/17/2007/17/2024 COMPL ETE BLOOD COUNT W/DIF F absolute basophil count 0.06 10_3/ uL 0.0-0. 2 normal Not Available [address] [place], [address] 07/17/2024 06:46:28 07/18/2007/18/2024 C DIFF PCR C diff PCR Negati ve negati ve Not Available [address] [place], [address] 07/18/2024 19:47:40 07/18/2007/18/2024 HEMOG LOBIN /ADI TOCRI T HGB 9.9 g/dL 11.2-1 5.7 low Not Available [address] [place], [address] 07/18/2024 14:31:24 07/18/20 24 07/18/2024 HEMOG LOBIN /ADI TOCRI T HCT 28.5 % 36.0-4 6.0 low Not Available [address] [place], [address] 07/18/2024 14:31:24 07/19/20 24 07/19/2024 BASIC METAB OLIC PANEL calcium 8.7 mg/dL 8.5-10 .1 normal Not Available [address] [place], [address] 07/19/2024 06:38:26 07/19/2007/19/2024 BASIC METAB OLIC PANEL glucose 110 mg/dL 74-106 high Not Available Marilin oliver [address] [place], [address] 07/19/2024 06:38:26 07/19/20 24 07/19/2024 BASIC METAB OLIC PANEL BUN 18 mg/dL 7-18 normal Not Available Marilin oliver [address] [place], [address] 07/19/2024 06:38:26 07/19/2007/19/2024 BASIC METAB OLIC PANEL creatinine 1.7 mg/dL 0.55-1 .02 high Not Available [address] [place], [address] 07/19/2024 06:38:26 07/19/2007/19/2024 BASIC METAB OLIC PANEL [...] young er-ag ed adult s. Not Available [address] [place], [address] 07/19/2024 06:38:26 07/19/2007/19/2024 BASIC METAB OLIC PANEL sodium 146 mmol/ L 136-14 5 high Not Available [address] [place], [address] 07/19/2024 06:38:26 07/19/2007/19/2024 BASIC METAB OLIC PANEL potassium 3.3 mmol/ L 3.5-5. 1 low Not Available [address] [place], [address] 07/19/2024 06:38:26 07/19/2007/19/2024 BASIC METAB OLIC PANEL chloride 112 mmol/ L 98-107 high Not Available [address] [place], [address] 07/19/2024 06:38:26 07/19/2007/19/2024 BASIC METAB OLIC PANEL CO2 22.9 mmol/ L 21.0-3 2.0 normal Not Available [address] [place], [address] 07/19/2024 06:38:26 07/19/2007/19/2024 BASIC METAB OLIC PANEL anion gap 11.1 mmol/ L 3-11 high Not Available [address] [place], [address] 07/19/2024 06:38:26 07/19/2007/19/2024 COMPL ETE BLOOD COUNT W/DIF F WBC 13.86 10_3/ uL 4.4-10 .8 high Not Available [address] [place], [address] 07/19/2024 06:26:26 07/19/20 24 07/19/2024 COMPL ETE BLOOD COUNT W/DIF F RBC 3.15 10_6/ uL 3.93-5 .22 low Not Available [address] [place], [address] 07/19/2024 06:26:26 07/19/20 24 07/19/2024 COMPL ETE BLOOD COUNT W/DIF F HGB 9.5 g/dL 11.2-1 5.7 low Not Available [address] [place], [address] 07/19/2024 06:26:26 07/19/2007/19/2024 COMPL ETE BLOOD COUNT W/DIF F HCT 28.0 % 36.0-4 6.0 low Not Available [address] [place], [address] 07/19/2024 06:26:26 07/19/2007/19/2024 COMPL ETE BLOOD COUNT W/DIF F MCV 89 fL 80-95 normal Not Available [address] [place], [address] 07/19/2024 06:26:26 07/19/20 24 07/19/2024 COMPL ETE BLOOD COUNT W/DIF F MCH 30.2 pg 27.0-3 3.0 normal Not Available [address] [place], [address] 07/19/2024 06:26:26 07/19/2007/19/2024 COMPL ETE BLOOD COUNT W/DIF F MCHC 33.9 % 32.0-3 6.0 normal Not Available [address] [place], [address] 07/19/2024 06:26:26 07/19/2007/19/2024 COMPL ETE BLOOD COUNT W/DIF F RDW 13.6 % 11.7-1 4.6 normal Not Available [address] [place], [address] 07/19/2024 06:26:26 07/19/20 24 07/19/2024 COMPL ETE BLOOD COUNT W/DIF F platelet count 308 10_3/ uL 130-40 0 normal Not Available [address] [place], [address] 07/19/2024 06:26:26 07/19/2007/19/2024 COMPL ETE BLOOD COUNT W/DIF F MPV 10.3 fL 8.0-11 .0 normal Not Available [address] [place], [address] 07/19/2024 06:26:26 07/19/2007/19/2024 COMPL ETE BLOOD COUNT W/DIF F neutrophils % 52.9 % Not Available [address] [place], [address] 07/19/2024 06:26:26 07/19/2007/19/2024 COMPL ETE BLOOD COUNT W/DIF F lymphocytes % 33.9 % Not Available [address] [place], [address] 07/19/2024 06:26:26 07/19/2007/19/2024 COMPL ETE BLOOD COUNT W/DIF F monocytes % 7.4 % Not Available [address] [place], [address] 07/19/2024 06:26:26 07/19/2007/19/2024 COMPL ETE BLOOD COUNT W/DIF F eosinophils % 3.0 % Not Available [address] [place], [address] 07/19/2024 06:26:26 07/19/2007/19/2024 COMPL ETE BLOOD COUNT W/DIF F basophils % 0.6 % Not Available [address] [place], [address] 07/19/2024 06:26:26 07/19/2007/19/2024 COMPL ETE BLOOD COUNT W/DIF F immature grans % 2.2 % Not Available [address] [place], [address] 07/19/2024 06:26:26 07/19/2007/19/2024 COMPL ETE BLOOD COUNT W/DIF F nucleated RBC 0.0 % 0.0-0. 3 normal Not Available [address] [place], [address] 07/19/2024 06:26:26 07/19/20 24 07/19/2024 COMPL ETE BLOOD COUNT W/DIF F absolute neutrophil count 7.33 10_3/ uL 1.2-6. 7 high Not Available [address] [place], [address] 07/19/2024 06:26:26 07/19/20 24 07/19/2024 COMPL ETE BLOOD COUNT W/DIF F absolute lymphocyte count 4.70 10_3/ uL 1.2-3. 4 high Not Available [address] [place], [address] 07/19/2024 06:26:26 07/19/20 24 07/19/2024 COMPL ETE BLOOD COUNT W/DIF F absolute monocyte count 1.03 10_3/ uL 0.1-0. 8 high Not Available [address] [place], [address] 07/19/2024 06:26:26 07/19/20 24 07/19/2024 COMPL ETE BLOOD COUNT W/DIF F absolute eosinophil count 0.42 10_3/ uL 0.0-0. 7 normal Not Available [address] [place], [address] 07/19/2024 06:26:26 07/19/20 24 07/19/2024 COMPL ETE BLOOD COUNT W/DIF F absolute basophil count 0.08 10_3/ uL 0.0-0. 2 normal Not Available [address] [place], [address] 07/19/2024 06:26:26 07/20/2007/20/2024 COMPL ETE BLOOD COUNT W/DIF F WBC 15.12 10_3/ uL 4.4-10 .8 high Not Available [address] [place], [address] 07/20/2024 16:04:47 07/20/2007/20/2024 COMPL ETE BLOOD COUNT W/DIF F RBC 3.51 10_6/ uL 3.93-5 .22 low Not Available [address] [place], [address] 07/20/2024 16:04:47 07/20/20 24 07/20/2024 COMPL ETE BLOOD COUNT W/DIF F HGB 10.7 g/dL 11.2-1 5.7 low Not Available [address] [place], [address] 07/20/2024 16:04:47 07/20/2007/20/2024 COMPL ETE BLOOD COUNT W/DIF F HCT 31.5 % 36.0-4 6.0 low Not Available [address] [place], [address] 07/20/2024 16:04:47 07/20/2007/20/2024 COMPL ETE BLOOD COUNT W/DIF F MCV 90 fL 80-95 normal Not Available [address] [place], [address] 07/20/2024 16:04:47 07/20/20 24 07/20/2024 COMPL ETE BLOOD COUNT W/DIF F MCH 30.5 pg 27.0-3 3.0 normal Not Available [address] [place], [address] 07/20/2024 16:04:47 07/20/20 24 07/20/2024 COMPL ETE BLOOD COUNT W/DIF F MCHC 34.0 % 32.0-3 6.0 normal Not Available [address] [place], [address] 07/20/2024 16:04:47 07/20/20 24 07/20/2024 COMPL ETE BLOOD COUNT W/DIF F RDW 14.0 % 11.7-1 4.6 normal Not Available [address] [place], [address] 07/20/2024 16:04:47 07/20/20 24 07/20/2024 COMPL ETE BLOOD COUNT W/DIF F platelet count 363 10_3/ uL 130-40 0 normal Not Available [address] [place], [address] 07/20/2024 16:04:47 07/20/2007/20/2024 COMPL ETE BLOOD COUNT W/DIF F MPV 11.2 fL 8.0-11 .0 high Not Available [address] [place], [address] 07/20/2024 16:04:47 07/20/2007/20/2024 COMPL ETE BLOOD COUNT W/DIF F neutrophils % 60.5 % Not Available [address] [place], [address] 07/20/2024 16:04:47 07/20/2007/20/2024 COMPL ETE BLOOD COUNT W/DIF F lymphocytes % 27.4 % Not Available [address] [place], [address] 07/20/2024 16:04:47 07/20/2007/20/2024 COMPL ETE BLOOD COUNT W/DIF F monocytes % 5.8 % Not Available [address] [place], [address] 07/20/2024 16:04:47 07/20/2007/20/2024 COMPL ETE BLOOD COUNT W/DIF F eosinophils % 3.4 % Not Available [address] [place], [address] 07/20/2024 16:04:47 07/20/2007/20/2024 COMPL ETE BLOOD COUNT W/DIF F basophils % 0.8 % Not Available [address] [place], [address] 07/20/2024 16:04:47 07/20/2007/20/2024 COMPL ETE BLOOD COUNT W/DIF F immature grans % 2.1 % Not Available [address] [place], [address] 07/20/2024 16:04:47 07/20/20 24 07/20/2024 COMPL ETE BLOOD COUNT W/DIF F nucleated RBC 0.0 % 0.0-0. 3 normal Not Available [address] [place], [address] 07/20/2024 16:04:47 07/20/20 24 07/20/2024 COMPL ETE BLOOD COUNT W/DIF F absolute neutrophil count 9.15 10_3/ uL 1.2-6. 7 high Not Available [address] [place], [address] 07/20/2024 16:04:47 07/20/20 24 07/20/2024 COMPL ETE BLOOD COUNT W/DIF F absolute lymphocyte count 4.14 10_3/ uL 1.2-3. 4 high Not Available [address] [place], [address] 07/20/2024 16:04:47 07/20/20 24 07/20/2024 COMPL ETE BLOOD COUNT W/DIF F absolute monocyte count 0.88 10_3/ uL 0.1-0. 8 high Not Available [address] [place], [address] 07/20/2024 16:04:47 07/20/20 24 07/20/2024 COMPL ETE BLOOD COUNT W/DIF F absolute eosinophil count 0.51 10_3/ uL 0.0-0. 7 normal Not Available [address] [place], [address] 07/20/2024 16:04:47 07/20/20 24 07/20/2024 COMPL ETE BLOOD COUNT W/DIF F absolute basophil count 0.12 10_3/ uL 0.0-0. 2 normal Not Available [address] [place], [address] 07/20/2024 16:04:47 07/20/2007/20/2024 BASIC METAB OLIC PANEL calcium 9.5 mg/dL 8.5-10 .1 normal Not Available [address] [place], [address] 07/20/2024 17:26:06 07/20/2007/20/2024 BASIC METAB OLIC PANEL glucose 126 mg/dL 74-106 high Not Available Marilin [address] [place], [address] 07/20/2024 17:26:06 07/20/2007/20/2024 BASIC METAB OLIC PANEL BUN 15 mg/dL 7-18 normal Not Available Marilin oliver [address] [place], [address] 07/20/2024 17:26:06 07/20/20 24 07/20/2024 BASIC METAB OLIC PANEL creatinine 1.5 mg/dL 0.55-1 .02 high Not Available [address] [place], [address] 07/20/2024 17:26:06 07/20/2007/20/2024 BASIC METAB OLIC PANEL estimated GFR 36.34 [...] young er-ag ed adult s. Not Available [address] [place], [address] 07/20/2024 17:26:06 07/20/2007/20/2024 BASIC METAB OLIC PANEL sodium 145 mmol/ L 136-14 5 normal Not Available [address] [place], [address] 07/20/2024 17:26:06 07/20/2007/20/2024 BASIC METAB OLIC PANEL potassium 3.6 mmol/ L 3.5-5. 1 normal Not Available [address] [place], [address] 07/20/2024 17:26:06 07/20/2007/20/2024 BASIC METAB OLIC PANEL chloride 109 mmol/ L 98-107 high Not Available [address] [place], [address] 07/20/2024 17:26:06 10/29/20 24 07/20/2024 BASIC METAB OLIC PANEL CO2 23.6 mmol/ L 21.0-3 2.0 normal Not Available [address] [place], [address] 07/20/2024 17:26:06 07/20/20 24 07/20/2024 BASIC METAB OLIC PANEL anion gap 12.4 mmol/ L 3-11 high Not Available [address] [place], [address] 07/20/2024 17:26:06 07/20/20 24 07/20/2024 MAGNE SIUM magnesium 2.0 mg/dL 1.8-2. 4 normal Not Available [address] [place], [address] 07/20/2024 17:26:07 07/22/20 24 07/22/2024 OCCUL T BLOOD STOOL GUAIA C(1SP ) occult blood stool guaiac(1sp) Occul t Blood Stool Guaia c(1sp ) STOOL OCCUL T BLOOD #1 NEGAT JR Not Available [address] [place], [address] 07/22/2024 16:18:22 07/27/20 24 07/27/2024 COMPL ETE BLOOD COUNT W/DIF F WBC 10.46 10_3/ uL 4.4-10 .8 normal Not Available [address] [place], [address] 07/27/2024 17:41:05 07/27/20 24 07/27/2024 COMPL ETE BLOOD COUNT W/DIF F RBC 3.43 10_6/ uL 3.93-5 .22 low Not Available [address] [place], [address] 07/27/2024 17:41:05 07/27/20 24 07/27/2024 COMPL ETE BLOOD COUNT W/DIF F HGB 10.5 g/dL 11.2-1 5.7 low Not Available [address] [place], [address] 07/27/2024 17:41:05 07/27/20 24 07/27/2024 COMPL ETE BLOOD COUNT W/DIF F HCT 32.2 % 36.0-4 6.0 low Not Available [address] [place], [address] 07/27/2024 17:41:05 07/27/20 24 07/27/2024 COMPL ETE BLOOD COUNT W/DIF F MCV 94 fL 80-95 normal Not Available Marilin [address] [place], [address] 07/27/2024 17:41:05 07/27/20 24 07/27/2024 COMPL ETE BLOOD COUNT W/DIF F MCH 30.6 pg 27.0-3 3.0 normal Not Available [address] [place], [address] 07/27/2024 17:41:05 07/27/20 24 07/27/2024 COMPL ETE BLOOD COUNT W/DIF F MCHC 32.6 % 32.0-3 6.0 normal Not Available [address] [place], [address] 07/27/2024 17:41:05 07/27/20 24 07/27/2024 COMPL ETE BLOOD COUNT W/DIF F RDW 14.2 % 11.7-1 4.6 normal Not Available [address] [place], [address] 07/27/2024 17:41:05 07/27/20 24 07/27/2024 COMPL ETE BLOOD COUNT W/DIF F platelet count 298 10_3/ uL 130-40 0 normal Not Available [address] [place], [address] 07/27/2024 17:41:05 07/27/20 24 07/27/2024 COMPL ETE BLOOD COUNT W/DIF F MPV 10.9 fL 8.0-11 .0 normal Not Available [address] [place], [address] 07/27/2024 17:41:05 07/27/20 24 07/27/2024 COMPL ETE BLOOD COUNT W/DIF F neutrophils % 69.4 % Not Available Yamil marrero [address] [place], [address] 07/27/2024 17:41:05 07/27/20 24 07/27/2024 COMPL ETE BLOOD COUNT W/DIF F lymphocytes % 21.8 % Not Available [address] [place], [address] 07/27/2024 17:41:05 07/27/20 24 07/27/2024 COMPL ETE BLOOD COUNT W/DIF F monocytes % 5.3 % Not Available [address] [place], [address] 07/27/2024 17:41:05 07/27/20 24 07/27/2024 COMPL ETE BLOOD COUNT W/DIF F eosinophils % 2.1 % Not Available [address] [place], [address] 07/27/2024 17:41:05 07/27/20 24 07/27/2024 COMPL ETE BLOOD COUNT W/DIF F basophils % 1.0 % Not Available [address] [place], [address] 07/27/2024 17:41:05 07/27/20 24 07/27/2024 COMPL ETE BLOOD COUNT W/DIF F immature grans % 0.4 % Not Available [address] [place], [address] 07/27/2024 17:41:05 07/27/20 24 07/27/2024 COMPL ETE BLOOD COUNT W/DIF F nucleated RBC 0.0 % 0.0-0. 3 normal Not Available [address] [place], [address] 07/27/2024 17:41:05 07/27/20 24 07/27/2024 COMPL ETE BLOOD COUNT W/DIF F absolute neutrophil count 7.27 10_3/ uL 1.2-6. 7 high Not Available [address] [place], [address] 07/27/2024 17:41:05 07/27/20 24 07/27/2024 COMPL ETE BLOOD COUNT W/DIF F absolute lymphocyte count 2.28 10_3/ uL 1.2-3. 4 normal Not Available [address] [place], [address] 07/27/2024 17:41:05 07/27/20 24 07/27/2024 COMPL ETE BLOOD COUNT W/DIF F absolute monocyte count 0.55 10_3/ uL 0.1-0. 8 normal Not Available [address] [place], [address] 07/27/2024 17:41:05 07/27/20 24 07/27/2024 COMPL ETE BLOOD COUNT W/DIF F absolute eosinophil count 0.22 10_3/ uL 0.0-0. 7 normal Not Available [address] [place], [address] 07/27/2024 17:41:05 07/27/20 24 07/27/2024 COMPL ETE BLOOD COUNT W/DIF F absolute basophil count 0.10 10_3/ uL 0.0-0. 2 normal Not Available [address] [place], [address] 07/27/2024 17:41:05 07/27/20 24 07/27/2024 URINA LYSIS color Yellow yellow Not Available Marilin oliver [address] [place], [address] 07/27/2024 17:58:08 07/27/20 24 07/27/2024 URINA LYSIS clarity Clear clear Not Available Marilin oliver [address] [place], [address] 07/27/2024 17:58:08 07/27/20 24 07/27/2024 URINA LYSIS specific gravity 1.010 1.005- 1.025 normal Not Available [address] [place], [address] 07/27/2024 17:58:08 07/27/20 24 07/27/2024 URINA LYSIS pH 6.0 5-8 normal Not Available Marilin oliver [address] [place], [address] 07/27/2024 17:58:08 07/27/20 24 07/27/2024 URINA LYSIS leukocyte esterase Negati ve negati ve Not Available [address] [place], [address] 07/27/2024 17:58:08 07/27/20 24 07/27/2024 URINA LYSIS nitrite Negati ve negati ve Not Available [address] [place], [address] 07/27/2024 17:58:08 07/27/20 24 07/27/2024 URINA LYSIS protein Negati ve mg/dL neg-tr erendira Not Available [address] [place], [address] 07/27/2024 17:58:08 07/27/20 24 07/27/2024 URINA LYSIS glucose Negati ve mg/dL negati ve Not Available [address] [place], [address] 07/27/2024 17:58:08 07/27/20 24 07/27/2024 URINA LYSIS ketones Negati ve mg/dL negati ve Not Available [address] [place], [address] 07/27/2024 17:58:08 07/27/20 24 07/27/2024 URINA LYSIS urobilinogen 0.2 mg/dL up to 0.2 Not Available [address] [place], [address] 07/27/2024 17:58:08 07/27/20 24 07/27/2024 URINA LYSIS bilirubin Negati ve negati ve Not Available [address] [place], [address] 07/27/2024 17:58:08 07/27/20 24 07/27/2024 URINA LYSIS blood Negati ve negati ve Not Available [address] [place], [address] 07/27/2024 17:58:08 07/27/20 24 07/27/2024 BASIC METAB OLIC PANEL calcium 9.1 mg/dL 8.5-10 .1 normal Not Available [address] [place], [address] 07/27/2024 17:59:09 07/27/20 24 07/27/2024 BASIC METAB OLIC PANEL glucose 114 mg/dL 74-106 high Not Available Marilin oliver [address] [place], [address] 07/27/2024 17:59:09 07/27/20 24 07/27/2024 BASIC METAB OLIC PANEL BUN 26 mg/dL 7-18 high Not Available Marilin oliver [address] [place], [address] 07/27/2024 17:59:09 07/27/20 24 07/27/2024 BASIC METAB OLIC PANEL creatinine 1.7 mg/dL 0.55-1 .02 high Not Available [address] [place], [address] 07/27/2024 17:59:09 07/27/20 24 07/27/2024 BASIC METAB [...] young er-ag ed adult s. Not Available [address] [place], [address] 07/27/2024 17:59:09 07/27/20 24 07/27/2024 BASIC METAB OLIC PANEL sodium 143 mmol/ L 136-14 5 normal Not Available [address] [place], [address] 07/27/2024 17:59:09 07/27/20 24 07/27/2024 BASIC METAB OLIC PANEL potassium 3.6 mmol/ L 3.5-5. 1 normal Not Available [address] [place], [address] 07/27/2024 17:59:09 07/27/20 24 07/27/2024 BASIC METAB OLIC PANEL chloride 109 mmol/ L 98-107 high Not Available [address] [place], [address] 07/27/2024 17:59:09 07/27/20 24 07/27/2024 BASIC METAB OLIC PANEL CO2 24.0 mmol/ L 21.0-3 2.0 normal Not Available [address] [place], [address] 07/27/2024 17:59:09 07/27/20 24 07/27/2024 BASIC METAB OLIC PANEL anion gap 10.0 mmol/ L 3-11 normal Not Available [address] [place], [address] 07/27/2024 17:59:09 07/27/20 24 07/27/2024 MAGNE SIUM magnesium 1.9 mg/dL 1.8-2. 4 normal Not Available [address] [place], [address] 07/27/2024 17:59:10 08/27/20 24 08/27/2024 BASIC METAB OLIC PANEL calcium 9.4 mg/dL 8.5-10 .1 normal Not Available [facility] ([facility]) [address] [place] [address] [place], [address], 08/27/2024 17:39:44 08/27/20 24 08/27/2024 BASIC METAB OLIC PANEL glucose 167 mg/dL 74-106 high Not Available [facility] ([facility]) [address] [place] [address] [place], [address], 08/27/2024 17:39:44 08/27/20 24 08/27/2024 BASIC METAB OLIC PANEL BUN 40 mg/dL 7-18 high Not Available [facility] ([facility]) [address] [place] [address] [place], [address], 08/27/2024 17:39:44 08/27/20 24 08/27/2024 BASIC METAB OLIC PANEL creatinine 1.5 mg/dL 0.55-1 .02 high Not Available [facility] ([facility]) [address] [place] [address] [place], [address], 08/27/2024 17:39:44 08/27/20 24 08/27/2024 BASIC METAB [...] young er-ag ed adult s. Not Available [facility] ([facility]) [address] [place] [address] [place], [address], 08/27/2024 17:39:44 08/27/20 24 08/27/2024 BASIC METAB OLIC PANEL sodium 143 mmol/ L 136-14 5 normal Not Available [facility] ([facility]) [address] [place] [address] [place], [address], 08/27/2024 17:39:44 08/27/20 24 08/27/2024 BASIC METAB OLIC PANEL potassium 4.0 mmol/ L 3.5-5. 1 normal Not Available [facility] ([facility]) [address] [place] [address] [place], [address], 08/27/2024 17:39:44 08/27/20 24 08/27/2024 BASIC METAB OLIC PANEL chloride 106 mmol/ L 98-107 normal Not Available [facility] ([facility]) [address] [place] [address] [place], [address], 08/27/2024 17:39:44 08/27/20 24 08/27/2024 BASIC METAB OLIC PANEL CO2 24.7 mmol/ L 21.0-3 2.0 normal Not Available [facility] ([facility]) [address] [place] [address] [place], [address], 08/27/2024 17:39:44 08/27/20 24 08/27/2024 BASIC METAB OLIC PANEL anion gap 12.3 mmol/ L 3-11 high Not Available [facility] ([facility]) [address] [place] [address] [place], [address], 08/27/2024 17:39:44 09/24/19 25 09/25/2024 URINE CULTU RE urine culture Urine Cultu re ACTIO N ID AND SUSCE PTIBI LITY TO FOLLO W APPEA DEBBIE Gram Negat jr Eugene APPEA DEBBIE Mixed Gram Posit jr Haylee COLON Y COUNT Not Available [address] [place], [address] 09/25/2024 12:33:58 09/24/19 25 09/25/2024 URINE CULTU RE urine culture colon ies/m L >100, 000 COLON Y COUNT <10,0 00 Day 1 Resul t ISOLA RAISA BELOW O:GNR (ORGA NISM ID: 1.1) - Gram negat jr eugene Urine Cultu re (ORGA NISM ID: 1.1) - COLON Y COUNT (ORGA NISM ID: 1.1) - >100, 000 Not Available [address] [place], [address] 09/25/2024 12:33:58 09/24/19 25 09/26/2024 URINE CULTU RE urine culture Urine Cultu re ACTIO N ID AND SUSCE PTIBI LITY TO FOLLO W ACTIO N ID AND SUSCE PTIBI LITY TO FOLLO W APPEA DEBBIE Gram Negat jr Eugene APPEA DEBBIE Mixed Gram Posit jr Haylee APPEA DEBBIE Gram Negat jr Eugene COLON Y COUNT Not Available [address] [place], [address] 09/26/2024 07:55:46 09/24/19 25 09/26/2024 URINE CULTU RE urine culture colon ies/m L >100, 000 COLON Y COUNT <10,0 00 COLON Y COUNT >100, 000 Day 1 Resul t ISOLA RAISA BELOW Day 2 Resul t ISOLA RAISA BELOW O:GNR (ORGA NISM ID: 1.1) - Gram negat jr eugene Urine Cultu re (ORGA NISM ID: 1.1) - COLON Y COUNT (ORGA NISM ID: 1.1) - >100, 000 O:GPF M (ORGA NISM ID: 1.2) - Gram posit jr haylee , mixed Urine Cultu re (ORGA NISM ID: 1.2) - COLON Y COUNT (ORGA NISM ID: 1.2) - 10,00 0 - 50,00 0 Not Available [address] [place], [address] 09/26/2024 07:55:46 09/24/19 25 09/27/2024 URINE CULTU RE urine culture Urine Cultu re ACTIO N ID AND SUSCE PTIBI LITY TO FOLLO W ACTIO N ID AND SUSCE PTIBI LITY TO FOLLO W APPEA DEBBIE Gram Negat jr Eugene APPEA DEBBIE Mixed Gram Posit jr Haylee APPEA DEBBIE Gram Negat jr Eugene APPEA DEBBIE Mixed Gram Posit jr Haylee APPEA DEBBIE Gram Negat jr Eugene APPEA DEBBIE Mixed Gram Posit jr Haylee COLON Y COUNT Not Available [address] [place], [address] 09/27/2024 08:54:00 09/24/19 25 09/27/2024 URINE CULTU RE urine culture colon ies/m L >100, 000 COLON Y COUNT <10,0 00 COLON Y COUNT >100, 000 COLON Y COUNT 10,00 0 - 50,00 0 COLON Y COUNT >100, 000 COLON Y COUNT 10,00 0 - 50,00 0 Day 1 Resul t ISOLA RAISA BELOW Day 2 Resul t ISOLA RAISA BELOW Day 3 Resul t ISOLA RAISA BELOW O:ENT CPX (ORGA NISM ID: 1.1) - ENTER OBACT ER CLOAC AE COMPL EX Urine Cultu re (ORGA NISM ID: 1.1) - COLON Y COUNT (ORGA NISM ID: 1.1) - >100, 000 O:GPF M (ORGA NISM ID: 1.2) - Gram posit jr haylee , mixed Urine Cultu re (ORGA NISM ID: 1.2) - COLON Y COUNT (ORGA NISM ID: 1.2) - 10,00 0 - 50,00 0 ORGAN ISM ID: 1.1 ANTIB IOTIC INTER PRETA TION JOSEMANUEL STATU S Cefaz juan manuel R >=64 F Cefta zidim e S 4 F CEFTR IAXON E S 8 F Cipro floxa onel S <=0.2 5 F Genta micin S <=1 F Nitro furan toin S <=16 F Imipe nem S <=0.2 5 F Levof loxac in S <=0.1 2 F Tobra mycin S <=1 F Trime thopr im/Merritt lfame thoxa zole S <=20 F Piper acill in/Ta zobac tarango I [address] [facility] [address] [place], [address] 09/27/2024 08:54:00 03/02/20 24 03/02/2024 MRI imagi ng repor t Patikatie t Name: Martha Payton Unit #: [id number] Loc: DI Orderi ng Provid er: Yulissa Lainez Accoun t #: [id number] Status : REG CLI Primar y [...] occlus ion or signif icant stenos is. Rabbit Fancier ior Cerebr al Arteri es: Right: No aneury sm, occlus ion or signif icant stenos is. Left: No aneury sm, occlus ion or signif icant stenos is. The left insulation sprayer ior cerebr al artery arises from the left insulation sprayer ior commun icatin g artery which is [...] at the addres s above. Thank- you. [email or web address] [facility] [address] [place], [address] 03/03/2024 18:56:46 03/02/20 24 03/02/2024 MRI imagi ng repor t Patien t Name: Martha Payton Unit #: [id number] Loc: DI Thania barrios Provid er: Yulissa Lainez Accoun t #: [id number] Status : REG CLI Primar y [...] occlus ion or signif icant stenos is. Correctional Officer Chief al Caroti d: Right: No eviden ce of occlus ion or signif icant stenos is. Left: No eviden ce of occlus ion or signif icant stenos is. Mine Utility Operator al Caroti d: Right: No dissec tion, [...] Dictat ed By: Satinder Odonnell M.D. 1404 1403 Transc ribed By: Satinder Odonnell 1403 [...] at the addres s above. Thank- you. [email or web address] [facility] [address], [place], [address] 03/03/2024 18:56:46 03/09/20 24 03/09/2024 ultra sound imagi ng repor t Patien t Name: Martha Payton Unit #: [id number] Loc: DI Orderi ng Provid er: Yulissa Lainez Accoun t #: [id number] Status : REG CLI Primar y [...] at the addres s above. Thank- you. [email or web address] [facility] [address] , [place], [address] 03/15/2024 11:38:17 03/09/20 24 03/09/2024 CT imagi ng ofelia Steiner t Name: Martha Payton Unit #: [id number] Loc: DI Orderi ng Provid er: Yulissa Lainez Accoun t #: [id number] Status : REG CLI Primar y [...] ZATION : All CT scans at this [facility] ty use at least one of these [...] at the addres s above. Thank- you. [email or web address] [facility] [address] [place], [address] 03/15/2024 11:38:18 06/12/20 24 06/12/2024 x-ray imagi ng repor t Patien t Name: Marisa turnerMartha yovani Deyvi Unit #: [id number] Loc: ER Orderi ng Provid er: Lacho Correa M.D. Accoun t #: [id number] Status : REG ER Primar y [...] error, please notify us immedi ately at [phone] and return the origin al report to us at the addres s above. Thank- you. INTERFACE [facility] [address] , [place], [address] 06/12/2024 18:34:32 06/12/20 24 06/12/2024 x-ray imagi ng repor t Patikatie t Name: Martha Payton Unit #: [id number] Loc: ER Orderi ng Provid er: Lacho Correa M.D. Accoun t #: [id number] Status : REG ER Primar y [...] DOSE DELIVE RED: Ordere d By: Lacho Corera M.D. CC: ------ ------ ------ ------ ------ [...] error, please notify us immedi ately at [phone] and return the origin al report to us at the addres s above. Thank- you. INTERFACE [address] [place], [address] 06/12/2024 18:34:33 06/12/20 24 06/12/2024 CT imagi ng repor t Patien t Name: Martha Payton Unit #: [id number] Loc: ER Orderi ng Provid er: Lacho Correa M.D. Accoun t #: [id number] Status : REG ER Primar y [...] Regist ry (DIR) with the [place] [facility] [employer] [facility] Radiol [facility]gy (ACR). RADIAT ION OPTIMI ZATION : [facility] one of [...] the addres s above. Thank- you. INTERFACE [facility] [address], [place], [address] 06/12/2024 18:43:33 06/12/20 24 06/12/2024 vrad repor t Patien t Name: Martha Payton Unit #: [id number] Loc: ER Orderi ng Provid er: Accoun t #: [id number] Status : REG ER Primar y [...] FINDIN GS: ANTERI OR CIRCUL ATION: Right finance accounting internship al caroti d artery : Calcif ied plaque with severe stenos is cavern ous right ICA. Right middle cerebr al artery : Modera te to severe stenos is insulation sprayer ior M3 branch right MCA. No signif icant stenos is remain lien of the right MCA. Right anteri or cerebr al artery : No occlus ion or signif icant stenos is. No aneury sm. Left finance accounting internship al caroti d artery : Calcif ied plaque with modera te stenos is cavern ous left ICA. Left middle cerebr al artery : No occlus ion or signif icant stenos is. No aneury sm. Left anteri or cerebr al artery : No occlus ion or signif icant stenos is. No aneury sm. MEDIA JOB TITLES IOR CIRCUL ATION: Right verteb ral artery : No occlus ion or signif icant stenos is. No aneury sm. Left verteb ral artery : No occlus ion or signif icant stenos is. No aneury sm. Basila r artery : No occlus ion or signif icant stenos is. No aneury sm. Right insulation sprayer ior cerebr al artery : No occlus ion or signif icant stenos is. No aneury sm. Left insulation sprayer ior cerebr al artery : No occlus ion or signif icant stenos is. No aneury sm. HEAD: Brain: Stable right insulation sprayer ior fronta l and pariet al infarc [...] rkable . IMPRES BASIL: 1. Stable right insulation sprayer ior fronta l and pariet al infarc t. 2. 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 3. Calcif ied plaque with modera te stenos is cavern ous left ICA. 4. Modera te to severe stenos is insulation sprayer ior M3 branch right MCA. ASSESS MENT: [...] No dissec tion or occlus ion. Right finance accounting internship al caroti d artery : No stenos is of the extrac ranial segmen t. No dissec tion or occlus ion. Right straightedge man al caroti d artery : No occlus ion or stenos is of the origin . Left common caroti d artery : No stenos is. No dissec tion or occlus ion. Left finance accounting internship al caroti d artery : No stenos is of the extrac ranial segmen t. No dissec tion or occlus ion. Left straightedge man al caroti d artery : No occlus [...] the cervic al segmen t of the finance accounting internship al caroti d artery is based on NASCET criter ia. Normal is no stenos is. Mild is less than 50% stenos is. Modera te is 50-69% stenos is. Severe is 70% to 99% stenos is. Total occlus ion is no detect able patent lumen. Dictat ed and Daphnie sanchez d by: Abelardo Nagel MD. Orderi ng:Ivet ISST Shelby pina MD Access ion#=[id number] Gin torres By: CC: ------ ------ [...] at the addres s above. Thank- you. [email or web address] [facility] [address] [place], [address] 06/15/2024 15:45:36 06/13/20 24 06/13/2024 vrad ofelia wilde Name: Martha Payton Unit #: [id number] Loc: Orderi ng Provid er: Accisael t #: [id number] Status : ADM IN Primar y [...] Dictat ed and Daphnie sanchez d by: Sofy Cordero MD. Ordermariola ng:Peyton Zhou MD Access ion#=[id number] Ordere d By: CC: ------ ------ [...] at the addres s above. Thank- you. [email or web address] [facility] [address], [place], [address] 06/15/2024 15:45:36 06/13/20 24 06/13/2024 CT imagi ng repor t Patien t Name: Martha Payton Unit #: [id number] Loc: MS Thania barrios Provid er: Lacho Correa M.D. Accoun t #: [id number] Status : ADM IN Primar y [...] right side there is calcif ied plaque insulation sprayer iorly at the caroti d bulb-b ifurca tion level and there is also calcif ied plaque on the medial and insulation sprayer ior saldaña of the proxim al right ICA. Amount of stenos is at this level is estima liz at approx imatel y 40 percen t in the proxim al right ICA. The right ICA is nicely patent in the upper neck. Left caroti d bulb exhibi ts some calcif ied plaque anteri sherry. There is calcif ied plaque on the insulation sprayer ior wall the proxim al left ICA. Approx imatel y 30 percen t stenos is at this level. There is also self like plaque at the origin left ICA with more promin ent stenos is at this level, approx imatel y 70 percen t. Left ICA in the upper neck is patent . Rabbit Fancier ior circul ation: Both verteb ral arteri [...] Brain W: Anteri or circul ation: Both finance accounting internship al caroti d arteri es are patent in the skull base-c arotid canals . Both intra cavern ous finance accounting internship al caroti d arteri es are periph erally calcif ied. There is a signif icant focal stenos is at the juncti on of the intra cavern ous and suprac linoid aspect of the right finance accounting internship al caroti d artery with approx [...] or commun icatin g artery . Left insulation sprayer ior cerebr al artery is patent withou t signif icant stenos is. There is mild-m oderat e narrow ing in the proxim al right middle cerebr al artery . No intral uminal thromb us seen. No aneury sms. No dissec tion flaps. Rabbit Fancier ior circul ation: The basila r artery ascend s in the midlin e. Distal ly it gives off patent right insulation sprayer ior cerebr al artery althou gh there is a modera te stenos is in the insulation sprayer ior cerebr al artery a few cm distal to its origin . The left insulation sprayer ior cerebr al artery is predom inantl y fed by a insulation sprayer ior commun icatin g artery on the left side of the [place]. This that There is no eviden ce of aneury sm at the tip of the basila r artery nor elsewh ere in the [place]. CT BRAIN: Again noted is [...] the addres s above. Thank- you. INTERFACE [facility] [address], [place], [address] 06/13/2024 15:50:13 06/13/20 24 06/13/2024 CT imagi ng repor t Patien t Name: Martha Payton Unit #: [id number] Loc: Ordermariola ng Provid er: Jabari Bustamante Accoun t #: [id number] Status : ADM IN Primar [...] REPOSI TORY: All CT scans at this [facility] are submit liz to the [facility] al Radiol ogy Data Regist ry (NRDR) Dose Index Regist ry (DIR) with the [place] [facility] [facility] Radiol ogy (ACR). RADIAT ION OPTIMI ZATION : All CT scans at this [facility] use at least one of these [...] the addres s above. Thank- you. INTERFACE [facility] [address], [place], [address] 06/13/2024 16:16:16 06/14/20 24 06/14/2024 MRI imagi ng repor t Patien t Name: Martha Payton Unit #: [id number] Loc: MS Monteiro ng Provid er: Jabari Bustamante Accoun t #: [id number] Status : ADM IN Primar [...] the addres s above. Thank- you. INTERFACE [address] [place], [address] 06/14/2024 12:37:22 06/14/20 24 06/14/2024 ultra sound imagi ng repor t Patikatie t Name: Martha Payton Unit #: [id number] Loc: MS Thania barrios Provid er: Sanjana unger,Jabari lemond Accisael t #: [id number] Status : ADM IN Primnj y [facility] er: Yulissa Lainez Date of Exam: 05/24 12/13 Sex: F Admiss ion Date: : 1949 Age: 73 ------ ------ --- APPROV ED REPORT ------ ------ -- EXAM: Compre bandar e 2D, Dopple r, and color- flow [...] motion Left Ventri allen The left ventri allne is normal size. The left ventri cular [...] inform ation intend ed only for the [facility] er named. Any use or distri bution by any person other than this [facility] er is strict ly prohib ited. If you receiv e this report in error, please notify us immedi ately at [phone] and return the origin al report to us at the addres s above. Thank- you. INTERFACE [address] [place], [address] 06/14/2024 15:22:54 07/16/20 24 07/16/2024 CT imagi denis gilbert t Obdulia t Name: Marisa deyvi,Martha n R Unit #: [id number] Loc: ER Orderi ng Provid er: Lanette Zimmer,Stephania Jaramillo Accoun t #: [id number] Status : REG ER Primar y [...] were discus sed with Alliso n Lanette fajardo-Gol d at 2:45 p.m. on 2023. RADIAT [...] error, please notify us immedi ately at [phone] and return the origin al report to us at the addres s above. Thank- you. INTERFACE [facility] [address] [place], [address] 07/16/2024 14:51:01 07/16/2007/16/2024 x-ray imagi ng repor t Patien t Name: Martha Payton Unit #: [id number] Loc: ER Orderi ng Provid er: Stephania Hagan Accoun t #: [id number] Status : REG ER Primar y Care [facility] er: Yulissa Lainez Date of Exam: 06/23 [...] error, please notify us immedi michellely at [phone] and return the origin al report to us at the addres s above. Thank- you. INTERFACE [facility] [address], [place], [address] 07/16/2024 14:58:08 07/16/2007/16/2024 CT imagi ng repor t Obdulia wilde Name: Martha Payton Unit #: [id number] Loc: ER Orderi ng Provid er: Stephania Hagan t #: [id number] Status : REG ER Primar y Care Provid er: Dana Lainezradhalacy hanh Date of Exam: 06/23 02/12 Sex: [...] The area of hemorr raul in the patikatie t's old right pariet o-occi pital infarc [...] ed to the examin ation from jose turner in the day. RADIAT ION DOSE [...] the addres s above. Thank- you. INTERFACE [facility] [address] , [place], [address] 07/16/2024 17:29:32 Result Notes None recorded. Problems Name Problem SNOMED Code Status Onset Date Resolution Date Notes Provider Name and Address Organization Details Recorded Time Diarrhea 54392324 Active [address], [place], [address] , [facility] 4 18:06:27 Poor short-term memory 397939664 Active [address], [place], [address] , [facility] 4 10:28:13 Essential hypertensi on 25001460 Active [address], [place], [address], [facility] 4 10:29:23 Blood glucose outside reference range 913914341 Active [address], [place], [address] , [facility] 4 10:30:43 Iritis 51219821 Active [address], [place], [address], [facility] 4 10:31:43 Tobacco dependence caused by cigarettes 019124663408 11255 Active [address], [place], [address] , [facility] 4 12:23:42 Adjustment disorder with depressed mood 54796168 Active [address], [place], [address] , [facility] 4 12:26:28 Prediabete s 553487476 Active 2023 5.7% on [address], [place], [address] , [facility] 4 07:52:17 History of coronary artery bypass grafting 946435910 Active 2009 In 2010 per prior med recs [address], [place], [address], [facility] 14:53:13 Unexplaine d weight loss 207299174 Active [address], [place], [address], [facility] 13:43:55 Chronic cough 38311317 Active [address], [place], [address], [facility] 13:44:00 Pain of left shoulder joint 431011369291 57111 Active [address], [place], [address], [facility] 13:44:16 Hyperlipid emia 33552398 Active [address], [place], [address] , [facility] 13:48:11 Chronic obstructiv e pulmonary disease 53786392 Active [address], [place], [address], [facility] 13:49:36 Lacunar infarction 202359649 Active [address], [place], [address], [facility] 18:17:27 Bradycardi a 50682398 Active [address], [place], [address], [facility] 4 18:36:12 Chronic kidney disease stage 3B [id number] Active 2023 NOted in 1 Note in prior MR as stage 3 D/T HTN. Plan to control BP as care plan. 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 484637713 Active [address], [place], [address], [facility] 08:09:53 Hypokalemi a 09156212 Active [address], [place], [address], [facility] 4 08:10:59 Sundowning 071747084 Active [address], [place], [address], [facility] 08:12:54 Loose stool 307680816 Active 2023 MARIAM FANG [address], [place], [address], [facility] 09:45:26 Unsteady when walking 53751074 Active [address], [place], [address], [facility] 10:02:59 Decreased diastolic arterial pressure 25038425 Active [address], [place], [address], [facility] 10:04:18 Acute gastrointe stinal hemorrhage 60287431 Active [address], [place], [address], [facility] 06:49:56 Cerebral infarction 963792901 Active [address], [place], [address], [facility] 06:50:08 Acute urinary tract infection 156922657 Active [address], [place], [address], [facility] 06:52:30 Hypernatre sanaz 038823518 Active [address], [place], [address], [facility] 06:55:39 Problem Notes None recorded. Procedures Surgical History None recorded. Imaging Results Imaging Date Name Status LastModified by Organ [facility] Details LastModified Time 03/02/2024 MRI imaging report completed [email or web address] [place], [address] 03/03/2024 18:56:46 03/02/2024 MRI imaging report completed [email or web address] [place] [address] [place], [address] 03/03/2024 18:56:46 03/09/2024 ultrasound imaging report completed [id number] [place] [address] [place], [address] 03/15/2024 11:38:17 03/09/2024 CT imaging report completed [id number] [place], [address] 03/15/2024 11:38:18 06/12/2024 x-ray imaging report completed INTERFACE [address] [place], [address] 06/12/2024 18:34:32 06/12/2024 x-ray imaging report completed INTERFACE [address] [place], [address] 06/12/2024 18:34:33 06/12/2024 CT imaging report completed INTERFACE [address] [place], [address] 06/12/2024 18:43:33 06/12/2024 vrad report completed [email or web address] [place], [address] 06/15/2024 15:45:36 06/13/2024 vrad report completed [id number] [place] [address] [place], [address] 06/15/2024 15:45:36 06/13/2024 CT imaging report completed INTERFACE [address] [place], [address] 06/13/2024 15:50:13 06/13/2024 CT imaging report completed INTERFACE [address] [place], [address] 06/13/2024 16:16:16 06/14/2024 MRI imaging report completed INTERFACE [address] [place], [address] 06/14/2024 12:37:22 06/14/2024 ultrasound imaging report completed INTERFACE [address] [place], [address] 06/14/2024 15:22:54 07/16/2024 CT imaging report completed INTERFACE [address] [place], [address] 07/16/2024 14:51:01 07/16/2024 x-ray imaging report completed INTERFACE [address] [place], [address] 07/16/2024 14:58:08 07/16/2024 CT imaging report completed INTERFACE [address] [place], [address] 07/16/2024 17:29:32 Procedure Notes None recorded. Medical Equipment None Reported. Allergies Allergen ID Allergen Name Allergen Category Reaction Reaction Severity Criticality Documentation Date Start Date Code Code System Note Provider Name and Address Organization Details Recorded Time 84844 chlorthal idone medicatio n Not available Not available [facility] 01/28/[address], [place], [address] [place] [address] 17:56:24 85258 hydrochlo rothiazid e medicatio n Not available Not available [facility] 01/28/[address], [place], [address] [place] [address] 17:56:38 Medications Name Sig Start Date Stop Date Status Note LastModified by Organization Details LastModified Time losartan 50 mg tablet Take 1 tablet every day by oral route as directed . 08/11 completed Per [employer] EMR Not Available Not Available Not Available quetiapin e 25 mg tablet 1 tablet by mouth each night 2023 active Not Available Not Available Not Avai lable atorvasta tin 80 mg tablet Take 1 tablet every day by oral route at bedtime. 2023 active updated from [employer] EMR Not Available Not Available Not Available [...] route as directed . 2023 [facility] E[facility] Not Available Not Available Not Available sucralfat e 1 gram tablet 1 tab by mouth before meals and at night active Started by [facility] in setting of GI bleed 07/19/20 [...] hemorrag e and GI bleed at 07/13/20 [facility] hospital in setting of taking aspirin. Aspirin held at this time pending GI consult. Not Available Not Available Not Available amlodipin e 10 mg tablet Take 1 tablet every day by oral route. 2024 active Not Available Not Available Not Avai lable pantopraz ole 40 mg tablet,de layed release Take 1 tablet every day by oral route. 2023 active started by [facility] in setting of GI bleed 07/19/20 [...] Avai lable Lomotil 2.5 mg-0.025 mg tablet 1 tablet 4 times daily 2024 active Not Available Not Available Not Avai lable nicotine 7 mg/24 hr daily transderm al patch Apply 1 patch every day by transder mal route as directed . 10/01 completed Per [employer] EMR Not Available Not Available Not Available [...] Not Available Not Available Not Avai lable nitrofura ntoin monohydra te/macroc rystals 100 mg capsule 1 capsule by mouth twice daily for 5 days 10/01 completed Not Available Not Available Not Available Lactobaci llus acidophil us 1 billion cell [...] by mouth BID, max 4 per day 2024 active Not Available Not Available Not [...] Updated DateTime 4 147.32 cm 20.8 kg/m2 45726.0 8 g 97.7 [degF] 97 % 97 % 62 /min 130 mm[Hg] 72 mm[Hg] DEEDEE PITTMAN [place] [facility] 4 11:29:51 Date Recorded Body height Body [...] Updated DateTime 4 147.32 cm 20.5 kg/m2 79215.4 5 g 98.1 [degF] 99 % 99 % 62 /min 18 /min 195 mm[Hg] 63 mm[Hg] 211 mm[Hg] 102 mm[Hg] 210 mm[Hg] 75 mm[Hg] 199 mm[Hg] 66 mm[Hg] Keesha Zaragoza [place] [facility] 4 21:02:19 Date Recorded Body height Body mass index (BMI) Body weight Body temperature Oxygen saturation Oxygen saturation in Arterial blood by Pulse oximetry Respiratory rate Heart rate Systolic blood pressure Diastolic blood pressure Provider Name and Address Organization Details Last Updated DateTime 4 147.32 cm 19.9 kg/m2 33278.9 9 g 98.6 [degF] 100 % 100 % 14 /min 70 /min 108 mm[Hg] 48 mm[Hg] SUKHDEV TORIBIO RN [facility] 4 09:38:14 Date Recorded Body height Body mass index (BMI) Body weight Body temperature Oxygen saturation Oxygen saturation in Arterial blood by Pulse oximetry Heart rate Systolic blood pressure Diastolic blood pressure Provider Name and Address Organization Details Last Updated DateTime 4 147.32 cm 20.4 kg/m2 39662.9 g 97.5 [degF] 97 % 97 % 52 /min 108 mm[Hg] 58 mm[Hg] DEEDEE PITTMAN [place] [facility] 4 08:35:30 Date Recorded Body height Body mass index (BMI) Body weight Body temperature Oxygen saturation Oxygen saturation in Arterial blood by Pulse oximetry Heart rate Systolic blood pressure Diastolic blood pressure Provider Name and Address Organization Details Last Updated DateTime 5 147.32 cm 18.9 kg/m2 29992.4 7 g 98.6 [degF] 99 % 99 % 54 /min 142 mm[Hg] 86 mm[Hg] DEEDEE PITTMAN [place] [facility] 5 14:27:28 Social History Question Answer Notes LastModified by Organizat ion Details LastModified Time Tobacco Smoking Status Current Every Day Smoker Kylah Almonte MA [facility], [facility] 11/01/2023 11:33:08 Date Of Most Recent HSA 10/01/2024 Information not available 10/01/2024 Would You Say That, In General, Your [...] Money To Get More. Never True Information n ot available 11/26/2023 How Hard Is It For [...] Were Not Prescribed To You? Never Information n ot available 11/26/2023 How Often In The Past Year Have You Taken Your Own Prescription Medication More Than The Way It Was Prescribed Or For Different Reasons Than Its Intended Purpose? Never Information no t available 11/26/2023 How Often In The Past Year Have You Used Other Drugs (for Example, Heroin, Cocaine, Meth, Salvia, Inhalants)? Never Information not available 11/26/2023 Have You Ever Used IV Drugs? No Information not available 11/26/2023 What Matters Most To You? Health Information not available 10/01/2024 During The Past Four Weeks Has Your Physical And Emotional Health Limited Your Social Activities With Family And Friends, Neighbors, Or Groups? Not At All Information not available 10/01/2024 During The Past Four Weeks, Was Someone Available To Help You If You Needed And Wanted Help? (For Example, If You [place] Very Nervous, Lonely, Or Blue; Got Sick And Had To Stay In Bed; Needed Someone To Talk To; Needed Help With Daily Chores; Or Needed Help Just Taking Care Of Yourself.) Yes- As Much As I Wanted Information not available 10/01/2024 During The Past Four Weeks, What Was The Hardest Physical Activity You Could Do For At Least 2 Minutes? Very Light Information not available 10/01/2024 Can You Get To Places Out Of Walking Distance Without Help? (For Example, Can You Travel Alone On Buses Or Taxis, Or Drive Your Own Car?) No Information not available 10/01/2024 Can You Go Shopping For Groceries Or Clothes Without Someone? s Help? No Information not available 10/01/2024 Can You Prepare Your Own Meals? No Information not available 10/01/2024 Can You Do Your Housework Without Help? No Information not available 10/01/2024 Because Of Any Health Problems, Do You Need The Help Of Another Person With Your Personal Care Needs Such As Eating, Bathing, Dressing, Or Getting Around The House? Yes Information not available 10/01/2024 Can You Handle Your Own Money Without Help? No Information not available 10/01/2024 Are You Having Difficulties Driving Your Car? Not Applicable- I Do Not Use A Car Information not available 10/01/2024 Do You Always Fasten Your Seat Belt When You Are In A Car? Yes- Usually Information not available 10/01/2024 How Often During The Past Four Weeks Have You Been Bothered By Any Of The Following Problems? Falling Or Dizzy When Standing Up? Seldom Information not available 10/01/2024 Sexual Problems? Never Infor mation not available 10/01/2024 Trouble Eating Well? Never Information not available 10/01/2024 Teeth Or Denture Problems? Never Information not available 10/01/2024 Problems Using The Telephone? Sometimes Information not available 10/01/2024 Tiredness Or Fatigue? Never Information not available 10/01/2024 Have You Had 2 Or More Falls Or Sustained An Injury With A Fall In The Last Year? No Information no t available 10/01/2024 Do You Have Difficulty With Walking Or Balance? Yes Information not available 10/01/2024 Do You Currently Use A Hearing Device? No Information not available 10/01/2024 Do You Currently Have Any Trouble With Your Vision? Yes Information no t available 10/01/2024 Do You Exercise For About 20 Minutes Three Or More Days A Week? Yes- Some Of The Time Information not available 10/01/2024 Are There Any Safety Concerns In Your Home (see Attached [facility] Pamphlet)? No Information not available 10/01/2024 How Often Do You Have Trouble Taking Medicines The Way You Have Been Told To Take Them? I Always Take Them As Prescribed Information not available 10/01/2024 How Confident Are You That You Can Control And Manage Most Of Your Health Problems? Very Confident Information not available 10/01/2024 Do You Currently Have Any Difficulty With Your Hearing? Yes Information not available 10/01/2024 Date Of Most Recent SBINS 09/30/2023 Information not available 11/26/2023 What Was The Date Of Your Most Recent Tobacco Screening? 05/14/2024 [email or web address] Information not available 05/14/2024 How Much Tobacco Do You Smoke? 0.5 PPD [email or web address] Information not available 05/14/2024 Has Tobacco Cessation Counseling Been Provided? Yes Information not available 11/01/2023 On What Date Was Tobacco Cessation Counseling Provided? 05/14/2024 [email or web address] Information not available 05/14/2024 Do You Or [...] Vaccine Type Date Status Note Provider Nam nguyen and Address Organization Details Recorded Time Influenza, high-dose, trivalent, PF 07/09/2024 completed [address], [place], [address], [facility] 07/09/2024 11:46:08 COVID-19, mRNA, LNP-S, PF, angie-sucrose, 30 mcg/0.3 mL 07/09/2024 completed [address]IAM FANG [address], [place], [address], [facility] 07/09/2024 11:46:08 Tdap 07/09/2024 completed [address]IAM [address]ANG [address], [place], [address], [facility] 07/09/2024 11:46:08 Past Encounters Encounter ID Performer Location Encounter Start Date Encounter Closed Date Diagnosis/Indication Diagnosis SNOMED-CT Code Diagnosis ICD10 Code Diagnosis Note [id number] VISHAL GAMBOA [employer]MENT[employer] [address] [place] [address] 11/01/2023 11:23:08 11/01/2023 12:27:22 Pain of left shoulder region 4867237429 M25.512 Patient with a fall and fracture of L shoulder region 3 years ago in [facility] (unable to determine location of fracture per patients history). She states she seemed to have resolution of symptoms with sling, and had no complicati ons or sequelae until the last year, in which she has noted a tender, bony prominence in the AC joint region. Today, offered xrays of shoulder to assess for any healed fracture or persisting deformity, patient and accompanyi ng family member declined. They have scheduled f/u with new PCP 11/27/23, and will discuss this issue at at that visit. 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 She is unaware of any CKD, no history of recent bloodwork. Will check CMP today to ensure kidney function WNL, and call with results to guide if she can continue NSAIDs, or should instead use Tylenol only for pain relief. Elevated blood-pressure reading without diagnosis of hypertension 171339134 R03.0 Today, BP reading in office elevated. Patient denies any recent antihypert ensive medication s. She does have a history of triple bypass surgery, but not currently taking any antihypert ensives, statin, or ASA. Will need continued monitoring , likely initiation of antihypert ensive if BP readings continue to be elevated. Cough 98074308 R05.9 73 year old female presents due to recent URI in the last 1-1.5 weeks, now only with lingering cough, can be productive of sputum. Denies shortness of breath, chest tightness, chest pain, fevers. No sinus pressure, bloody nasal drainage, or change in baseline headaches. No diagnosed COPD or chronic lung disease. Today, O2 sat 97% on room air, lung sounds are completely clear with no wheeze or crackles. Advised continued symptomati c treatment for postviral lingering cough, with fluids, OTC cough treatments , smoking cessation. Did offer CXR to evaluate for any signs of hyperinfla tion or chronic changes, patient declined. [id number] MARIAM FANG [facility] [address] [place] [address] 12/11/2023 09:48:55 12/11/2023 11:47:56 Poor short-term memory 270291228 R41.3 Likely Alzheimer' s related cognitive decline. We will order requisite labs for workup, brain MRI, and refer to Neurology for formal assessment when results are received. History of coronary artery bypass grafting 680903356 Z95.1 We will start Metoprolol and Atorvastat in today, as well as 81 mg of aspirin. If no records reveal any recent cardiology f/u, then consider fresh cardiac echo at follow up. Essential hypertension 14250612 I10 Diabetes m ellitus screening 934991507 Z13.1 Hyperlipid emia screening 203223195 Z13.220 We will screen for current levels of lipids, assuming a past of cholestero l given smoking history and CABG x 3 Adjustment disorder with depressed mood 12659457 F43.21 Pt. agreeable to trial of Sertraline . Discussed option to move dosing to day or night depending on if it makes pt. sleepy or not. Tobacco de pendence caused by cigarettes 8923807481 5684877 F17.210 Pt. precontemp lative about quitting. I did recommend that she cut back as it is likely contributi ng to her memory loss. [id number] MARIAM FANG [facility] [address] [place] [address] 01/28/2024 12:55:09 01/28/2024 14:09:34 Unexplained weight loss 270457756 R63.4 Concerning for malignancy in pt. w/extensiv e smoking history and cough for 4-mos. Will send for CT of the chest. Chronic cough 26770427 R 05.3 Likely related to COPD and/or Allergy, but weight loss concerning in setting of long smoking history so we will order chest CT. Pain of le ft shoulder joint 5523928270 0131794 M25.512 This has been ongoing for years per pt. report. While there is palpable difference , it doesn't affect her ROM or strength. She had minor pain on resisted IR. Hyperlipidemia 17426848 E78.5 Will check lipids. at f/u. Chronic ob structive pulmonary disease 16338118 J44.9 Pt. does not have an inhaler. Her prior medical records only showed up after last visit and show pt. had positive response with Ventolin as only inhaler so we will start here. Lacunar infarction 76633 8000 I63.81 Pt. has had no observable changes such as slurred speech, hemiparesi s, altered sensorium. We have started her on aspirin 81 mg since receiving the imaging results. She does continue to smoke. She does need additional large vessel imaging, cardiac monitoring and echocardio gram as well. Bradycardia 78221428 R00 .1 Pt. to return to office for EKG, lipid lab, [id number] MARIAM FANG [facility] [address] [place] [address] 03/29/2024 11:20:50 03/29/2024 12:12:54 Tobacco dependence caused by cigarettes 9735296822 2344023 F17.210 Pt. with positive attitude about reducing smoking by 20 cigarettes and only at 1/2 pack/day. She will work with daughter in law to delay smoking by 15 minutes/da y till she desires to stop. Pulmonary emphysema 8743 3001 J43.9 As seen on 03/09/2024 CT scan. Continue Ventoline as needed. 97% on RA today. Lacunar infarction 25304 8000 I63.81 Pt. has had no observable changes such as slurred speech, hemiparesi s, altered sensorium. We have started her on aspirin 81 mg since receiving the imaging results. Cardiac US and vessel imaging complete w/out obvious cause. She is working on smoking cessation. Normal bod y mass index 92631062 Z68.20 Pt. concerned about weight, but she actually is a healthy weight, is eating regularly, had recently cut out soda since moving in with son/daught er in law. Reassuranc e provided to pt. and caregi sixto. Essential hypertension 93557922 I10 130/72 today in office. We will monitor. [id number] ISATU ZAMORA PA-C [address],[facility] [address] [place] [address] 05/14/2024 18:33:21 05/14/2024 21:16:51 Pyuria 8819643 R82.81 Patient has had some abnormal behaviors at night with worsening of dementia and that she has been speaking with people who are not in the room and her who are actually . She has not had issues with this in her dementia as of yet. Primary care was concerned for possibilit y of urinary tract infection. Urinalysis here shows trace leukocytes , negative nitrites and trace ketones, no blood. Her caregiver endorses that she has chronic diarrhea and often has difficulty cleaning herself. This is a excellent potential source for urinary tract infection. Patient's current presentati on is actually rather reassuring . Despite her dementia she is mentating well. She has a normal neurologic exam. Her physical presentati on is reassuring . She did have elevated blood pressure upon arrival at 195/63. I have reviewed her records which show she was recently started on blood pressure medication s and they are monitoring this. Blood pressure in clinic on 03/29 was noted to be 130/72. Blood pressure recheck just prior to discharge was noted to be 211/102. This did bring concern but was also taken into contacts that the patient had become cold and was shivering a bit. She only had on a T-shirt in the clinic was indeed cold. I myself was called as was another patient. We did provide a blanket to the patient turned off the air it actually turned up the heat. Patient warmed up and blood pressure returned to 199/66. I did recheck her temperatur e which did not show fever. I did consider that the shivering could be rigors but I do not think that is actually the case. Again her physical presentati on is reassuring her mentation is well. It is getting late and the patient is getting hungry. She has a very reliable caregiver who I think will be able to monitor her closely at home and if she has any degree of worsening will take her to the emergency department . I am going to initiate cefuroxime 250 mg p.o. twice daily x 7 days. She is given first dose while here. They understand we will contact her with urine culture results come Friday as we will be closed on Friday when results return. If between now and then she has any degree of overall physical presentati on such as fever, worsening mental status they should not hesitate to go to the emergency department . Patient and niece voiced understand ing. Stressed the importance of staying well-hydra liz and eating. Currently I do not see any other concerning signs for infection or concerning abnormal mental status or neurologic exam and I feel like she is okay to be monitored on outpatient basis. [id number] MARIAM FANG [facility] [address] [place] [address] 07/09/2024 09:29:21 07/09/2024 10:24:04 Right sided cerebral hemisphere cerebrovascular accident 151750999 I63.9 Subacute right occipital CVA, hypertensi on Ending course of PlavixCont inue on ASAHad Echo w/bubble study, US of Carotids showing stenosis, vascular consulted who did not rec'd surgery, but did say ASA for life. Hypokalemia 50521651 E87 .6 Will check stability of labs. Essential hypertension 67510909 I10 DIastolic low with some unsteadine ss in last couple days since quetiapine increase so we will go back to 25 mg of quetiapine . 348589156 F05 Discussed regulary wake/sleep time, keeping her from napping, can add trazodone. Reviewed sleep hygiene nformation and provided handout. Loose stool 342826791 R1 9.5 Will add bulking agent Unsteady when walking 22 843873 R26.89 Decreasing Quetiapine back to quetiapine , also low diastolic BP today likely caused by this. Donna will notify us if this isn't improving shortly. Decreased diastolic arterial pressure 38675814 R03.1 Very likely from the increase in quetiapine as she has also been a bit unsteady on her feet when standing up since dose increase, moving back to 25 mg. Donna will report if not resolved. Active or passive immunization 795097638 Z23 Tdap, Flu and Covid today. [id number] MARIAM FANG [facility] [address] [place] [address] 07/20/2024 08:15:21 07/20/2024 09:24:16 Acute gastrointestinal hemorrhage 97139173 K92.2 Pt. was referred to General surgery for mgmt of acute GI bleed. Appt 07/26/2024. Donna reports stools still loose/dark . C-diff test at hospital was negative. Aspirin continues to be held. Cerebral infarction 4325 69613 I63.9 Had new hemorrage within area of old infarct. No mass effect at hospital prior to 07/19/2024 d/c. She was referred to [facility] for mgmt. No new neurologic al signs on exam today or witnessed at home. Acute urin fam tract infection 791248342 N39.0 Will finish course of Cefpodoxim e. Starting on probiotic. Hypernatremia 975836042 E87.0 Mild at 146 at ED. Will check level. [id number] Enriqueta Martinez [facility] [address] [place] [address] 10/01/2024 14:12:47 10/01/2024 16:45:17 Adult health examination 783291991 Z00.00 Diarrhea 00825720 R19.7 Essential hypertension 15406198 I10 She is getting 12.5 mg of metoprolol BID currentlyL osartan 50 mg is being taken in the morning. BP spiking in afternoon/ early in morningShe is getting amlodipine 5 mg BID (per HH maybe from hospital Donna reports)Ti franky is mid afternoon and first thing in the morning for high BP. Could be metoprolol , but could be shorter action of losartan and cut dosing of amlodipine . Will start Olmesartan 20 mgAmlodipi ne 10 mg in the morning (not dosing in PM due to pt. sundowning risk and would be afraid of increase risk of falls unsupervis ed).Contin ue with Metoprolol 12.5 BID for now, if need to raise double metoprolol next. Loose stool 367279018 R1 9.5 Will add bulking agent Health Concerns Section Related Observation LastModified by Organization Detai ls LastModified Time None Recorded Concern Status LastModified by Organization Details LastModified Time None Recorded Advance Directives Directive None Recorded Payers Encounter Date Sequence Insurance Name Policy Number Policy Nicole Covered Member ID Nicole Member ID Guarantor Name 03/29/[address] [facility] (MEDICAID) Jennifer Archer [id number] Jennifer Archer 03/29/2024 1 [place] [employer] Jennifer Archer [id number] Jennifer Archer 05/14/[address] [facility] (MEDICAID) Jennifer Archer [id number] Jennifer Archer 05/14/2024 1 [place] [place] Jennifer Archer [id number] Jennifer Archer 07/09/[address] [facility] (MEDICAID) Jennifer Archer [id number] Jennifer Archer 07/09/2024 1 [place] [employer] Jennifer Archer [id number] Jennifer Archer 07/20/[address] [facility] (MEDICAID) Jennifer Archer [id number] Jennifer Archer 07/20/2024 1 [place] [employer] [employer] Jennifer Archer [id number] Jennifer Archer Notes Date Note Type Note Provider Name and Address Organization Details Recorded Time 03/29/2024 text/html Pt. 73-F, here f or [...] No malignancy. MARIAM FANG [address], [place], [address], [facility]. 03/29/2024 12:38:37 05/14/2024 text/html I received a [...] clear at this time. [address], [place], [address], [facility]. 05/15/2024 13:54:05 07/09/2024 text/html Pt, 74-F, here f or MARIAH after d/c from [facility] 06/17/2024 for Subacute right occipital CVA, [...] Low diastolic pressure today. [address], [place], [address], [facility]. 07/09/2024 11:48:31 07/20/2024 text/html Pt. 74-F, w/joseph gale, here for transition of care follow up from 07/19/2024 [facility] where she was hospitalized for acute UTI, new acute [facility] neuro-vascular had recommended medical management.The patient [...] her home health services. [address], [place], [address], [facility]. 07/20/2024 09:53:21 OBGyn Episode No OBEpisode recorded.
--- OUTSIDE RECORDS SUMMARY | 2024-10-01 16:57 | XMS_ITS | Referral Summary ---
Author Organization [facility] Address [address] [place] [address] Care Team Providers Care Chief Payroll Clerk Name Role Phone Unavailable Primary Care Provider [...]
--- OUTSIDE RECORDS SUMMARY | 2024-10-01 16:57 | XMS_ITS | Clinical Summary ---
Author Organization [facility] Address [address] [place] [address] Care Team Providers Care Extrusion Former Name Role Phone Unavailable Primary Care Provider [...]
--- OUTSIDE RECORDS SUMMARY | 2024-10-01 16:57 | XMS_ITS | Continuity of Care Document ---
Author Organization [place] - [facility] [place] [address] [place] [address] Care Team Providers Care Road Maker Name Role Phone RAMA MCNEAL Primary Care Provider Edvin HARLEY CHRONIC CUSTOMER SUPPORT SPECIALIST Ramp Boss GENOVEVA ATWOOD Neurologist [phone] Assessment Encounter Date Assessment Date Assessment LastModified by Organization Details LastModified Time 07/20/2024 07/20/2024 Care mgmt note 07/19/2024 states,Discharge home with resumption of full [facility] services and Community/[facility] er supports. Follow up with PCP and discharge plan of care as recommended. Donna will provide transportation. Patient/Family Education Needs: Review discharge instructions, limitations, medications and plan to follow up with community providers. Discuss ask me three. Services Needed at Discharge: Home Health Care Services (Resume [facility] RN, PT, OT, RESTORATIVE AIDE) and Homemaking Services (Provided by [facility]) Donna reports she has to call [...] Care Coordi nator 30 2024 02:30P [facility] Chronic Student Records Coordinator Not available Not available Not available Medica re Annual Wellne ss 40 2024 02:30P Clint Mcneal Not available Not available Not available Follow Up 30 2024 02:30P Clint Mcneal Not available Not available Not available Lab CBC w/ auto diff 2023 [facility] (Registration ), [address] [place] [address] [place], [address], 07/20/2024 16:04:47 BMP, serum or plasma [address] [facility], [address] , [place], [address], 07/28/2024 10:41:09 magnes ium, serum or plasma [address] [facility] (Registration ), [address] [place] [address] [place], [address], 07/27/2024 09:31:07 Referral None record ed. Procedures None record ed. Surgeries None record ed. Imaging None record ed. Medication Orders Lactob acillu s acidop hilus 1 billio n cell tablet 2023 [id number], [address] [place] [address], [id number], 07/20/2024 09:06:11 Patient TargetsNo targets recorded. Patient Instructions Encounter Date Encounter Id Patient Instructions Last Modified By Organization Details Last Modified Time 07/20/2024 [id number] Continue to hold aspirin. Not available 07/20/2024 09:14:21 Reason for Referral None Reported. Results Created Date Observation Date Name Description Value Unit Range Abnormal Flag Note LastModifiedBy Organization Detail LastModifiedTime 07/16/2007/16/2024 CT imagi ng repor t Patien t Name: Marisa yueMarthanguyen Carnes Unit #: [id number] Loc: ER Orderi ng Provid er: Stephania Hagan t #: [id number] Status : REG ER Primar y Care Provid er: Yulissa Mcneal Date of Exam: 06/23 02/12 Sex: F [...] ZATION : [facility] use at least one of [...] error, please notify us immedi ately at [phone] and return the origin al report to us at the addres s above. Thank- you. INTERFACE [facility] [address], [place], [address] 07/16/2024 14:51:01 07/16/2007/16/2024 x-ray imagi ng repor t Patien t Name: Martha Payton Unit #: [id number] Loc: ER Orderi ng Provid er: Stephania Hagan Accoun t #: [id number] Status : REG ER Primar y Care Provid er: FatouYulissa hanh Date of Exam: 06/23 02/12 Sex: F Admiss ion Date: : 10/13/ 1950 Age: 74 Exam(s ) XR CHEST 2V PA LATERA L EXAM: XR CHEST 2V PA LATERA L CLINIC AL HISTOR Y: AMS TECHNI QUE: 2D digita l imagin amaris was perfor med of the chest. Images were obtain ed. PA and latera l views were obtain ed. COMPAR JA: CR XR CHEST 2V PA LATERA L from 2023 FINDIN GS: MEDIAS TINUM: Normal . HEART: Normal . The patien andry is status post CABG. PULMON OLMAN VASCUL ATURE: Normal . LUNGS: No focal consol idatin g infilt rates. PLEURA L SPACE: There is a small right pleura l effusi on. No left pleura l effusi on. No pneumo thorax . BONE:W ithin normal limits for the patien andry's age. Sterna l wires are in place. [...] the addres s above. Thank- you. INTERFACE [address] [place], [address] 07/16/2024 14:58:08 10/25/20 24 07/16/2024 CT imagi ng repor t Patien t Name: Martha Payton Unit #: [id number] Loc: ER Orderi ng Provid er: Stephania Hagan t #: [id number] Status : REG ER Primar y Care Provid er: Yulissa Mcneal Date of Exam: 06/23 02/12 Sex: F [...] you. INTERFACE [facility] [address] , [place], [address] 07/16/2024 17:29:32 Result Notes None recorded. Problems Name Problem SNOMED Code Status Onset Date Resolution Date Notes Provider Name and Address Organization Details Recorded Time Diarrhea 12403354 Active [address], [place], [address] , [facility] 18:06:27 Poor short-term memory 071694633 Active [address], [place], [address] , [facility] 4 10:28:13 Essential hypertensi on 54977500 Active [address], [place], [address], [facility] 4 10:29:23 Blood glucose outside reference range 084164808 Active [address], [place], [address], [facility] 4 10:30:43 Iritis 26445956 Active [address], [place], [address], [facility] 4 10:31:43 Tobacco dependence caused by cigarettes 826506369017 53780 Active [address], [place], [address], [facility] 4 12:23:42 Adjustment disorder with depressed mood 04020238 Active [address], [place], [address], [facility] 4 12:26:28 Prediabete s 944405605 Active 2023 5.7% on [address], [place], [address], [facility] 4 07:52:17 History of coronary artery bypass grafting 934520474 Active 2009 In 2010 per prior med recs [address], [place], [address], [facility] 4 14:53:13 Unexplaine d weight loss 974934984 Active 2023 MARIAM FANG [address], [place], [address], [facility] 13:43:55 Chronic cough 33825611 Active 2023 MARIAM FANG [address], [place], [address], [facility] 13:44:00 Pain of left shoulder joint 860866764545 47640 Active 2023 MARIAM FANG [address], [place], [address], [facility] 13:44:16 Hyperlipid emia 38732018 Active 2023 MARIAM FANG [address], [place], [address], [facility] 13:48:11 Chronic obstructiv e pulmonary disease 59575648 Active [address], [place], [address], [facility] 13:49:36 Lacunar infarction 877033921 Active [address], [place], [address], [facility] 18:17:27 Bradycardi a 62296541 Active [address], [place], [address], [facility] 18:36:12 Chronic kidney disease stage 3B 979050519 Active 2023 NOted in 1 Note in prior MR as stage 3 D/T HTN. Plan to control BP as care plan. [address], [place], [address], [facility] 4 05:24:31 Pulmonary emphysema 64884131 Active [address], [place], [address], [facility] 4 12:31:17 Leukocytos is 457424266 Active [address], [place], [address], [facility] 20:10:17 Pyuria 9210786 Active [address], [place], [address], [facility] 20:12:07 Agitation due to dementia 962844203 Active [address], [place], [address], [facility] 16:19:39 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 793019021 Active [address], [place], [address], [facility]. 08:09:53 Hypokalemi a 41065351 Active [address], [place], [address], [facility]. 08:10:59 Sundowning 331329829 Active [address], [place], [address], [facility] 4 08:12:54 Loose stool 359854371 Active [address], [place], [address] , [facility] 09:45:26 Unsteady when walking 30493756 Active [address], [facility] [address], [facility] 10:02:59 Decreased diastolic arterial pressure 01619827 Active [address], [facility] [address] , [facility] 10:04:18 Acute gastrointe stinal hemorrhage 18683371 Active [address], [facility] [address] , [facility] 06:49:56 Cerebral infarction 944158401 Active [address], [place], [address] , [facility] 06:50:08 Acute urinary tract infection 034030394 Active [address], [place], [address] , [facility] 06:52:30 Hypernatre sanaz 115381912 Active [address], [place], [address] , [facility] 06:55:39 Problem Notes None recorded. Medical Equipment None Reported. Allergies Allergen ID Allergen Name Allergen Category Reaction Reaction Severity Criticality Documentation Date Start Date Code Code System Note Provider Name and Address Organization Details Recorded Time 26569 chlorthal idone medicatio n Not available Not available [facility] 01/28/2024 2409 RxNorm MARIAM FANG [address], [place], [address] [place] [address] 17:56:24 84094 hydrochlo rothiazid e medicatio n Not available Not available [facility] 01/28/2024 5487 RxNorm MARIAM FANG [address], [place], [address] [place] [address] 17:56:38 Medications Name Sig Start Date Stop Date Status Note LastModified by Organization Details LastModified Time losartan 50 mg tablet Take 1 tablet every day by oral route as directed . 08/11 completed [facility] Not Available Not Available Not Available quetiapin e 25 mg tablet 1 tablet by mouth each night 2023 active Not Available Not Available Not Avai lable atorvasta tin 80 mg tablet Take 1 tablet every day by oral route at bedtime. 2023 active updated from [employer] EMR Not Available Not Available Not Available [...] route as directed . 2023 active per [employer] [facility] E[facility] Not Available Not Available Not Available sucralfat e 1 gram tablet 1 tab by mouth before meals and at night active Started by [facility] in setting of GI bleed 07/19/20 [...] e and GI bleed at 07/13/20 24 [facility] hospital in setting of taking aspirin. Aspirin held at this time pending GI consult. Not Available Not Available Not Available amlodipin e 10 mg tablet Take 1 tablet every day by oral route. 2024 active Not Available Not Available Not Avai lable pantopraz ole 40 mg tablet,de layed release Take 1 tablet every day by oral route. 2023 active started by [facility] in setting of GI bleed 07/19/20 [...] route as directed . 10/01 completed Per [employer] EMR Not Available Not Available Not [...] Updated DateTime 4 147.32 cm 20.4 kg/m2 99121.9 g 97.5 [degF] 97 % 97 % 52 /min 108 mm[Hg] 58 mm[Hg] DEEDEE PITTMAN MA [facility] 4 08:35:30 Social History Question Answer Notes LastModified by Organizat ion Details LastModified Time Tobacco Smoking Status Current Every Day Smoker Kylah Almonte MA null, [facility] 11/01/2023 11:33:08 [...] And Wanted Help? (For Example, If You Jackson Very Nervous, Lonely, Or Blue; Got Sick [...] Safety Concerns In Your Home (see Attached CDC Pamphlet)? No Information not available 10/01/2024 How [...] Of Your Most Recent Tobacco Screening? 05/14/2024 [email or web address] Information not available 05/14/2024 How Much Tobacco Do You Smoke? 0.5 PPD [email or web address] Information not available 05/14/2024 Has Tobacco Cessation Counseling Been Provided? Yes [email or web address] Information not available 11/01/2023 On What Date Was Tobacco Cessation Counseling Provided? 05/14/2024 [email or web address] Information not available 05/14/2024 Do You Or Have You Ever Used Any Other Forms Of Tobacco Or Nicotine? No [email or web address] Information not available 11/01/2023 Sex: Unknown Functional [...] 07/09/2024 completed MARIAM FANG [address], [facility] [address], [facility] 07/09/2024 11:46:08 COVID-19, mRNA, LNP-S, PF, angie-sucrose, 30 mcg/0.3 mL 07/09/2024 completed MARIAM FANG [address], [facility] [address], [facility] 07/09/2024 11:46:08 Tdap 07/09/2024 completed MARIAM FANG [address], [facility] [address], [facility] 07/09/2024 11:46:08 Past Encounters Encounter ID Performer Location Encounter Start Date Encounter Closed Date Diagnosis/Indication Diagnosis SNOMED-CT Code Diagnosis ICD10 Code Diagnosis Note [id number] MARIAM FANG [facility] [address] [place] [address] 07/09/2024 09:29:21 07/09/2024 10:24:04 Right sided cerebral hemisphere cerebrovascular accident 169000281 I63.9 Subacute right occipital CVA, hypertensi on Ending course of PlavixCont inue on ASAHad Echo w/bubble study, US of Carotids showing stenosis, vascular consulted who did not rec'd surgery, but did say ASA for life. Hypokalemia 11655045 E87 .6 Will check stability of labs. Essential hypertension 56788296 I10 DIastolic low with some unsteadine ss in last couple days since quetiapine increase so we will go back to 25 mg of quetiapine . Sundowning 346929666 F05 Discussed regulary wake/sleep time, keeping her from napping, can add trazodone. Reviewed sleep hygiene nformation and provided handout. Loose stool 281799092 R1 9.5 Will add bulking agent Unsteady when walking 22 876287 R26.89 Decreasing Quetiapine back to quetiapine , also low diastolic BP today likely caused by this. Donna will notify us if this isn't improving shortly. Decreased diastolic arterial pressure 25483992 R03.1 Very likely from the increase in quetiapine as she has also been a bit unsteady on her feet when standing up since dose increase, moving back to 25 mg. Donna will report if not resolved. Active or passive immunization 233223509 Z23 Tdap, Flu and Covid today. [id number] MARIAM FANG [facility] [address] [place] [address] 07/20/2024 08:15:21 07/20/2024 09:24:16 Acute gastrointestinal hemorrhage 42263746 K92.2 Pt. was referred to General surgery for mgmt of acute GI bleed. Appt 07/26/2024. Donna reports stools still loose/dark . C-diff test at hospital was negative. Aspirin continues to be held. Cerebral infarction 4325 86294 I63.9 Had new hemorrage within area of old infarct. No mass effect at hospital prior to 07/19/2024 d/c. She was referred to [facility] for mgmt. No new neurologic al signs on exam today or witnessed at home. Acute urin olman tract infection 562067896 N39.0 Will finish course of Cefpodoxim e. Starting on probiotic. Hypernatremia 702139490 E87.0 Mild at 146 at ED. Will check level. Health Concerns Section Related Observation LastModified by Organization Detai ls LastModified Time None Recorded Concern Status LastModified by Organization Details LastModified Time None Recorded Payers Encounter Date Sequence Insurance Name Policy Number Policy Nicole Covered Member ID Nicole Member ID Guarantor Name 07/20/2024 2 [facility] (MEDICAID) Jennifer Archer [id number] Jennifer De La Torremakenzie 07/20/2024 1 [place] [employer] [place] Jennifer Archer [id number] Jennifer Carnes Rafaelarenetta Notes Date Note Type Note Provider Name and Address Organization Details Recorded Time 07/20/2024 text/html Pt. 74-F, w/joseph gale, here for transition of care follow up from 07/19/2024 [facility] where she was hospitalized for acute UTI, [facility] neuro-vascular had recommended medical management.The patient continue [...] all her home health services. MARIAM FANG [address], [place], [address], [facility]. 07/20/2024 09:53:21 OBGyn Episode No OBEpisode recorded.
--- OUTSIDE RECORDS SUMMARY | 2024-10-01 16:57 | XMS_ITS | Encounter Summary ---
Author Organization [facility] Address [address] [place] [address] Care Team Providers Care Flatbed Driver Name Role Phone Unavailable Primary Care Provider Unavailabl e Encounter Details Date Type Department Care Team (Late st Contact Info) Description 12/11/2023 Lab Requisition [facility] Pathology & Laboratory Medicine - [facility] [address] [place] [address] Outr Resulting Lab, Provider Social History Tobacco [...] 4th Generation Negative Negative 12/12/2023 12:15 EDT [facility] Comment:If acute HIV-1 infec tion is suspected in a high risk patient, submit plasma specimen for HIV-1 RNA quantitation test. Blood VENOUS BLOOD / Unknown 12/11/2023 11:00 EDT 12/11/2023 21:23 EDT Narrative [facility] - 12/12/2023 12:15 EDT Fourth Generation assay performed on the Siemens Centaur XPT. us Provider Outr Resulting Lab IMMUNOLOGY AND SEROL OGY ORDERABLES Final Result [facility] [address] [place] [address] documented in this encounter Visit Diagnoses Not on filedocumented in this encounter
--- OUTSIDE RECORDS SUMMARY | 2024-10-01 16:58 | XMS_ITS | Continuity of Care Document ---
Author Organization [place] - [facility] [place] [address] Care Team Providers Care Rehab/Pre Vocational Counselor Name Role Phone RAMA MCNEAL Primary Care Provider Edvin HARLEY [facility] LPN Production Internship GENOVEVA ATWOOD Neurologist Assessment Encounter Date Assessment Date Assessment LastModified by Organization Details LastModified Time 07/09/2024 07/09/2024 Supports at home: - OT, Nursing, Social Work gang worker, Donna please w/supports. For Annual in September: Consider DEXA/risk factors of former smoker: Mammography: Life expectancy < 10 years, especially given recent stroke and advancing dementia, won't recommend future mammograms unless symptomatic. - Advanced Directive not on file Not available 07/09/2024 11:48:19 Plan of Treatment Reminders Order Date Submit Date Provider Last Modified By Organization Details Last Modified Time Details Appointments Chroni c Care Coordi nator 30 2024 02:30P M [facility] Chronic Surgery Assistant Not available Not available Not available Medica re Annual Wellne ss 40 2024 02:30P M Eduardo Fatou Not available Not available Not available Follow Up 30 2024 02:30P M Eduardo Fatou Not available Not available Not available Lab CBC w/ auto diff 2023 024 NUNO [facility] (Registration ), [address] [place] [address] [place], [address], 07/09/2024 16:14:29 BMP, serum or plasma 2023 024 [email or web address] [facility] (Registration ), [address] [place] [address] [place], [address], 07/16/2024 16:54:56 magnes ium, serum or plasma 2023 [email or web address] [facility] (Registration ), [address] [place] [address] [place], [address], 07/16/2024 16:55:13 Referral None record ed. Procedures None record ed. Surgeries None record ed. Imaging None record ed. Medication Orders psylli um husk 0.4 gram capsul e 2023 [facility] #[id number], [address] [place] [address], [id number], 07/09/2024 11:47:17 trazod one 50 mg tablet 2023 [facility] [employer] [facility] #[id number], [address] [place] [address], [id number], 07/09/2024 11:47:17 Patient TargetsNo targets recorded. Patient Instructions Encounter Date Encounter Id Patient Instructions Last Modified By Organization Details Last Modified Time 07/09/2024 [id number] Keep the environment dark during the night [...] Obdulia t Name: Martha Payton Unit #: [id number] Loc: ER Orderi ng Provid er: Lacho Correa M.D. Accoun t #: [id number] Status : REG ER Primar y Care [facility] er: Yulissa Mcneal Date of Exam: 05/24 10/15 Sex: F [...] error, please notify us immedi ately at [phone] and return the origin al report to us at the addres s above. Thank- you. INTERFACE [address] , [place], [address] 06/12/2024 18:34:32 06/12/20 24 06/12/2024 x-ray imagi ng repor t Patien t Name: Martha Payton Unit #: [id number] Loc: ER Orderi ng Provid er: Lacho Correa M.D. Accoun t #: [id number] Status : REG ER Primar y Care Provid er: Yulissa Mcneal Date of Exam: 05/24 10/15 Sex: F [...] the addres s above. Thank- you. INTERFACE [address] [place], [address] 06/12/2024 18:34:33 06/12/20 24 06/12/2024 CT imagi ng repor t Patien t Name: Martha Payton Unit #: [id number] Loc: ER Orderi ng Provid er: Lacho Correa M.D. Accoun t #: [id number] Status : REG ER Primar y Care [facility] er: Yulissa Mcneal Date of Exam: 05/24 10/15 Sex: F [...] ZATION : All CT scans at this [facility] use at least one of these [...] error, please notify us immedi michellely at [phone] and return the origin al report to us at the addres s above. Thank- you. INTERFACE [facility] [address], [place], [address] 06/12/2024 18:43:33 06/12/20 24 06/12/2024 vrad repor t Patien t Name: Martha Payton Unit #: [id number] Loc: ER Orderi ng Provid er: Accoun t #: [id number] Status : REG ER Primar y Care Provid er: Yulissa Mcneal Date of Exam: 05/24 10/15 Sex: F [...] FINDIN GS: ANTERI OR CIRCUL ATION: Right manager internship al caroti d artery : Calcif ied plaque with severe stenos is cavern ous right ICA. Right middle cerebr al artery : Modera te to severe stenos is propagation manager ior M3 branch right MCA. No signif icant stenos is remain lien of the right MCA. Right anteri or cerebr al artery : No occlus ion or signif icant stenos is. No aneury sm. Left manager internship al caroti d artery : Calcif ied plaque with modera te stenos is cavern ous left ICA. Left middle cerebr al artery : No occlus ion or signif icant stenos is. No aneury sm. Left anteri or cerebr al artery : No occlus ion or signif icant stenos is. No aneury sm. CASH REGISTER SERVICER IOR CIRCUL ATION: Right verteb ral artery : No occlus ion or signif icant stenos is. No aneury sm. Left verteb ral artery : No occlus ion or signif icant stenos is. No aneury sm. Basila r artery : No occlus ion or signif icant stenos is. No aneury sm. Right propagation manager ior cerebr al artery : No occlus ion or signif icant stenos is. No aneury sm. Left propagation manager ior cerebr al artery : No occlus ion or signif icant stenos is. No aneury sm. HEAD: Brain: Stable right propagation manager ior fronta l and pariet al [...] rkable . IMPRES BASIL: 1. Stable right propagation manager ior fronta l and pariet al infarc t. 2. 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 3. Calcif ied plaque with modera te stenos is cavern ous left ICA. 4. Modera te to severe stenos is propagation manager ior M3 branch right MCA. ASSESS [...] No dissec tion or occlus ion. Right manager internship al caroti d artery : No stenos is of the extrac ranial segmen t. No dissec tion or occlus ion. Right veterans' counselor al caroti d artery : No occlus ion or stenos is of the origin . Left common caroti d artery : No stenos is. No dissec tion or occlus ion. Left manager internship al caroti d artery : No stenos is of the extrac ranial segmen t. No dissec tion or occlus ion. Left veterans' counselor al caroti d artery : No occlus [...] the cervic al segmen t of the manager internship al caroti d artery is based on NASCET criter ia. Normal is no stenos is. Mild is less than 50% stenos is. Modera te is 50-69% stenos is. Severe is 70% to 99% stenos is. Total occlus ion is no detect able patent lumen. Dictat ed and Daphnie torres by: Abelardo Nagel MD. Thania ng:PJosé Miguel ISST Shelby pina MD Access ion#=[id number] Gin torres By: CC: ------ ------ ------ ------ ------ ------ ------ ------ ------ ------ ------ ------ ---- Dictat ed By: Report s vrad 2033 Transc ribed By: Chelsea Chanel 2033 This is privil eged, confid ential inform ation intend ed only for the provid er named. Any use or distri bution by any person other than this [facility] er is strict ly prohib ited. If you receiv e this report in error, please notify us immedi ately at and return the origin al report to us at the addres s above. Thank- you. [email or web address] [facility] [address] [place], [address] 06/15/2024 15:45:36 06/13/20 24 06/13/2024 vrad repor t Patien t Name: Martha Payton Unit #: [id number] Loc: MS Monteiro ng Provid er: Accoun t #: [id number] Status : ADM IN Primar y Care Provid er: Yulissa Mcneal Date of Exam: 05/24 11/15 Sex: F [...] MD. Orderi ng:Peyton Zhou MD Access ion#=[id number] Ordere d By: CC: ------ ------ [...] error, please notify us immedi ately at [phone] and return the origin al report to us at the addres s above. Thank- you. [email or web address] [facility] [address] [facility] [place], [address] 06/15/2024 15:45:36 06/13/2006/13/2024 CT imagi ng repor t Patien t Name: Martha Payton Unit #: [id number] Loc: MS Thania barrios Provid er: Lacho Correa M.D. Accoun t #: [id number] Status : ADM IN Primar y Care Provid er: Yulissa Mcneal Date of Exam: 05/24 10/15 Sex: F [...] right side there is calcif ied plaque propagation manager iorly at the caroti d bulb-b ifurca tion level and there is also calcif ied plaque on the medial and propagation manager ior saldaña of the proxim al right ICA. Amount of stenos is at this level is estima liz at approx imatel y 40 percen t in the proxim al right ICA. The right ICA is nicely patent in the upper neck. Left caroti d bulb exhibi ts some calcif ied plaque anteri sherry. There is calcif ied plaque on the propagation manager ior wall the proxim al left ICA. Approx imatel y 30 percen t stenos is at this level. There is also self like plaque at the origin left ICA with more promin ent stenos is at this level, approx imatel y 70 percen t. Left ICA in the upper neck is patent . Auto Self Service Station Attendant ior circul ation: Both verteb ral arteri [...] Brain W: Anteri or circul ation: Both manager internship al caroti d arteri es are patent in the skull base-c arotid canals . Both intra cavern ous manager internship al caroti d arteri es are periph erally calcif ied. There is a signif icant focal stenos is at the juncti on of the intra cavern ous and suprac linoid aspect of the right manager internship al caroti d artery with approx [...] or commun icatin g artery . Left propagation manager ior cerebr al artery is patent withou t signif icant stenos is. There is mild-m oderat e narrow ing in the proxim al right middle cerebr al artery . No intral uminal thromb us seen. No aneury sms. No dissec tion flaps. Auto Self Service Station Attendant ior circul ation: The basila r artery ascend s in the midlin e. Distal ly it gives off patent right propagation manager ior cerebr al artery althou gh there is a modera te stenos is in the propagation manager ior cerebr al artery a few cm distal to its origin . The left propagation manager ior cerebr al artery is predom inantl y fed by a propagation manager ior commun icatin g artery on the left side of the [place]. This that There is no eviden ce of aneury sm at the tip of the basila r artery nor elsewh ere in the chenega -of-Wi llis. CT BRAIN: Again noted is [...] = 0.00 mGy-cm Ordere d By: Lacho Corera M.D. CC: [...] Thank- you. INTERFACE [facility] [address], [place], [address] 06/13/2024 15:50:13 06/13/20 24 06/13/2024 CT imagi ng repor t Patikatie t Name: Martha Payton Unit #: [id number] Loc: Ordermariola ng Provid er: Jabari Bustamante Accoun t #: [id number] Status : ADM IN Primar y Care Provid er: Yulissa Mcneal Date of Exam: 05/24 11/15 Sex: F [...] please notify us immedi ately at [phone] and return the origin al report to us at the addres s above. Thank- you. INTERFACE [facility] [address], [place], [address] 06/13/2024 16:16:16 06/14/20 24 06/14/2024 MRI imagi ng repor t Patien t Name: Martha Payton Unit #: [id number] Loc: MS Orderi ng Provid er: Jabari Bustamante Accoun t #: [id number] Status : ADM IN Primar y Care Provid er: Yulissa Mcneal Date of Exam: 05/24 12/13 Sex: F [...] t motion artifa ct. DATA REPOSI TORY: Almase d By: Jabari Bustamante CC: ------ ------ [...] Thank- you. INTERFACE [facility] [address] [place], [address] 06/14/2024 12:37:22 06/14/20 24 06/14/2024 ultra sound imagi ng repor t Georgettekatie t Name: Martha Payton Unit #: [id number] Loc: MS Thania barrios Provid er: Sanjana jians,Da vid Accoun t #: [id number] Status : ADM IN Primar y Care [facility] er: Yulissa Mcneal Date of Exam: 05/24 12/13 Sex: F [...] this report in error, please notify us immchristyi laurel at and return the origin al report to us at the addres s above. Thank- you. INTERFACE [address] [place], [address] 06/14/2024 15:22:54 07/16/2007/16/2024 CT imagi ng repor t Patien t Name: Martha Payton Unit #: [id number] Loc: ER Orderi ng Provid er: Stephania Hagan t #: [id number] Status : REG ER Primar y [...] REPOSI TORY: All CT scans at this [facility] are submit liz to the Nation al Radiol ogy Data Regist ry (NRDR) Dose Index Regist ry (DIR) with the [place] of Radiol ogy (ACR). RADIAT ION OPTIMI ZATION : All CT scans at this [facility] use at least one of these [...] error, please notify us immedi ately at [phone] and return the origin al report to us at the addres s above. Thank- you. INTERFACE [facility] [address] [place], [address] 07/16/2024 14:51:01 07/16/2007/16/2024 x-ray imagi ng repor t Patien t Name: Martha Payton Unit #: [id number] Loc: ER Orderi ng Provid er: Stephania Hagan Accoun t #: [id number] Status : REG ER Primar y [...] Thank- you. INTERFACE [facility] [address] [place], [address] 07/16/2024 14:58:08 07/16/2007/16/2024 CT imagi ng repor t Patikatie t Name: Martha Payton Unit #: [id number] Loc: ER Orderi ng Provid er: Stephania Hagan Accoun t #: [id number] Status : REG ER Primar y [...] hemorr raul compar ed to the examin [facility] in the day. RADIAT [...] Thank- you. INTERFACE [facility] [address] , [place], [address] 07/16/2024 17:29:32 Result Notes None recorded. Problems Name Problem SNOMED Code Status Onset Date Resolution Date Notes Provider Name and Address Organization Details Recorded Time [facility] 93518327 Active [address], [place], [address], [facility] 4 18:06:27 Poor short-term memory 082561957 Active [address], [place], [address], [facility] 4 10:28:13 Essential hypertensi on 04678462 Active [address], [place], [address], [facility] 4 10:29:23 Blood glucose outside reference range 812177655 Active [address], [place], [address], [facility] 4 10:30:43 Iritis 97496383 Active [address], [place], [address], [facility] 4 10:31:43 Tobacco dependence caused by cigarettes 147388250876 19269 Active [address], [place], [address], [facility] 4 12:23:42 Adjustment disorder with depressed mood 81033837 Active [address], [place], [address], [facility] 4 12:26:28 Prediabete s 169423976 Active 2023 5.7% on [address], [place], [address], [facility] 4 07:52:17 History of coronary artery bypass grafting 882817010 Active 2009 In 2010 per prior med recs [address], [place], [address] , [facility] 4 14:53:13 Unexplaine d weight loss 823752247 Active [address], [facility] [address], [facility] 13:43:55 Chronic cough 98536214 Active [address], [facility] [address] , [facility] 13:44:00 Pain of left shoulder joint 401215921928 09586 Active [address], [facility] [address], [facility] 13:44:16 Hyperlipid emia 56415980 Active [address], [place], [address] , [facility] 13:48:11 Chronic obstructiv e pulmonary disease 56246683 Active [address], [place], [address], [facility] 13:49:36 Lacunar infarction 492410953 Active [address], [facility] [address] , [facility] 18:17:27 Bradycardi a 16019858 Active [address], [place], [address], [facility] 4 18:36:12 Chronic kidney disease stage 3B 459975901 Active 2023 NOted in 1 Note in prior MR as stage 3 D/T HTN. Plan to control BP as care plan. [address], [place], [address], [facility] 4 05:24:31 Pulmonary emphysema 31441201 Active [address], [place], [address], [facility] 4 12:31:17 Leukocytos is 387878116 Active [address], [place], [address], [facility] 4 20:10:17 Pyuria 9277266 Active [address], [place], [address], [facility] 4 20:12:07 Agitation due to dementia 499407796 Active [address], [place], [address], [facility] 4 16:19:39 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 869276679 Active [address], [place], [address], [facility] 4 08:09:53 Hypokalemi a 14519674 Active [address], [place], [address], [facility] 08:10:59 Sundowning 873175560 Active [address], [facility] [address], [facility] 08:12:54 Loose stool 129655685 Active [address], [facility] [address], [facility] 09:45:26 Unsteady when walking 18174268 Active [address], [facility] [address], [facility] 10:02:59 Decreased diastolic arterial pressure 14900007 Active [address], [facility] [address], [facility] 10:04:18 Acute gastrointe stinal hemorrhage 31077936 Active [address], [facility] [address], [facility] 06:49:56 Cerebral infarction 082225746 Active [address], [facility] [address], [facility] 06:50:08 Acute urinary tract infection 465973388 Active [address], [facility] [address] , [facility] 06:52:30 Hypernatre sanaz 168686663 Active [address], [facility] [address] , [facility] 4 06:55:39 Problem Notes None recorded. Medical Equipment None Reported. Allergies Allergen ID Allergen Name Allergen Category Reaction Reaction Severity Criticality Documentation Date Start Date Code Code System Note Provider Name and Address Organization Details Recorded Time 51518 chlorthal idone medicatio n Not available Not available [facility] 01/28/2024 2409 RxNoMARIAM Bryson [address], [place], [address] , [facility] 4 17:56:24 71445 hydrochlo rothiazid e medicatio n Not available Not available [facility] 01/28/2024 5487 RxNorm MARIAM FANG [address], [place], [address] , [facility] 4 17:56:38 Medications Name Sig Start Date Stop Date Status Note LastModified by Organization Details LastModified Time losartan 50 mg tablet Take 1 tablet every day by oral route as directed . 08/11 completed Per [employer] [facility] EMR Not Available Not Available Not Available quetiapin e 25 mg tablet 1 tablet by mouth each night 2023 active Not Available Not Available Not Avai lable atorvasta tin 80 mg tablet Take 1 tablet every day by oral route at bedtime. 2023 active updated from [facility] EMR Not Available Not Available Not [...] route as directed . 2023 active per [facility] EMR Not Available Not Available Not Available sucralfat e 1 gram tablet 1 tab by mouth before meals and at night active Started by [facility] in setting of GI bleed 07/19/20 D/C. [...] hemorrag e and GI bleed at 07/13/[address] [facility] hospital in setting of taking aspirin. Aspirin held at this time pending GI consult. Not Available Not Available Not Available amlodipin e 10 mg tablet Take 1 tablet every day by oral route. 2024 active Not Available Not Available Not Avai lable pantopraz ole 40 mg tablet,de layed release Take 1 tablet every day by oral route. 2023 active started by [facility] in setting of GI bleed 07/19/20 d/c [...] route as directed . 10/01 completed Per [employer] EMR Not Available Not Available Not Available [...] Last Updated DateTime 147.32 cm 19.9 kg/m2 68198.9 9 g 98.6 [degF] 100 % 100 % 14 /min 70 /min 108 mm[Hg] 48 mm[Hg] SUKHDEV TORIBIO RN [facility] 09:38:14 Social History Question Answer Notes LastModified by Organizat ion Details LastModified Time Tobacco Smoking Status Current Every Day Smoker [place], [facility] 11/01/2023 11:33:08 Date Of Most Recent HSA [...] And Wanted Help? (For Example, If You [place] Very Nervous, Lonely, Or Blue; Got Sick [...] Of Your Most Recent Tobacco Screening? 05/14/2024 [email or web address] Information not available 05/14/2024 How Much Tobacco Do You Smoke? 0.5 PPD Information not available 05/14/2024 Has Tobacco Cessation Counseling Been Provided? Yes Information not available 11/01/2023 On What Date Was Tobacco Cessation Counseling Provided? 05/14/2024 [email or web address] Information not available 05/14/2024 Do You Or [...] trivalent, PF 07/09/[address], [place] [id number], [facility] 07/09/2024 11:46:08 COVID-19, mRNA, LNP-S, PF, angie-sucrose, 30 mcg/0.3 mL 07/09/[address], [facility] [address], [facility] 07/09/2024 11:46:08 Tdap 07/09/[address], [facility] [address], [facility] 07/09/2024 11:46:08 Past Encounters Encounter ID Performer Location Encounter Start Date Encounter Closed Date Diagnosis/Indication Diagnosis SNOMED-CT Code Diagnosis ICD10 Code Diagnosis Note [id number] MARIAM FANG [facility] [address] [place] [address] 07/09/2024 09:29:21 07/09/2024 10:24:04 Right sided cerebral hemisphere cerebrovascular accident 138561254 I63.9 Subacute right occipital CVA, hypertensi on Ending course of PlavixCont inue on ASAHad Echo w/bubble study, US of Carotids showing stenosis, vascular consulted who did not rec'd surgery, but did say ASA for life. Hypokalemia 47909344 E87 .6 Will check stability of labs. Essential hypertension 98169072 I10 DIastolic low with some unsteadine ss in last couple days since quetiapine increase so we will go back to 25 mg of quetiapine . [place] 286996939 F05 Discussed regulary wake/sleep time, keeping her from napping, can add trazodone. Reviewed sleep hygiene nformation and provided handout. Loose stool 061384096 R1 9.5 Will add bulking agent Unsteady when walking 22 962709 R26.89 Decreasing Quetiapine back to quetiapine , also low diastolic BP today likely caused by this. Donna will notify us if this isn't improving shortly. Decreased diastolic arterial pressure 63654778 R03.1 Very likely from the increase in quetiapine as she has also been a bit unsteady on her feet when standing up since dose increase, moving back to 25 mg. Donna will report if not resolved. Active or passive immunization 558954964 Z23 Tdap, Flu and Covid today. Health Concerns Section Related Observation LastModified by Organization Detai ls LastModified Time None Recorded Concern Status LastModified by Organization Details LastModified Time None Recorded Payers Encounter Date Sequence Insurance Name Policy Number Policy Nicole Covered Member ID Nicole Member ID Guarantor Name 07/09/2024 2 [facility] (MEDICAID) Jennifer Archer [id number] Jennifer Archer 07/09/2024 1 [place] [employer] Jennifer Archer [id number] Jennifer Archer Notes Date Note Type Note Provider Name and Address Organization Details Recorded Time 07/09/2024 text/html Pt, 74-F, here f or MARIAH after d/c from [facility] 06/17/2024 for Subacute right occipital CVA, hypertension. [...] pressure today. MARIAM FANG [address], [place], [address], [facility]. 07/09/2024 11:48:31 OBGyn Episode No OBEpisode recorded.
[2024-10-01 19:18] LABS: Abs Immature Grans 0.07 10^3/uL (0.0-0.06); Absolute Basophil Count 0.05 10^3/uL (0.0-0.2); Absolute Eosinophil Count 0.15 10^3/uL (0.0-0.7); Absolute Lymphocyte Count 2.71 10^3/uL (1.2-3.4); Absolute Monocyte Count 0.73 10^3/uL (0.1-0.8); Basophils % 0.4 %; Eosinophils % 1.3 %; HCT 32.1 % (36.0-46.0); HGB 10.9 g/dL (11.2-15.7); Immature Grans % 0.6 %; Lymphocytes % 23.7 %; MCH 30.2 pg (27.0-33.0); MCV 89 fL (80-95); MPV 11.4 fL (8.0-11.0); Monocytes % 6.4 %; Neutrophils % 67.6 %; Platelet Count 284 10^3/uL (130-400); RBC 3.61 10^6/uL (3.93-5.22); RDW 12.2 % (11.7-14.6); RDW-SD 39.5 fL; WBC 11.42 10^3/uL (4.4-10.8)
[2024-10-01 19:23] LABS: Absolute Neutrophil Count 7.72 10^3/uL (1.2-6.7)
[2024-10-01 19:38] LABS: ALT 22 U/L (14-59); AST 16 U/L (15-37); Albumin 4.2 g/dL (3.4-5.0); Alkaline Phosphatase 115 U/L (46-116); Anion Gap 7.4 mmol/L (3-11); BUN 36 mg/dL (7-18); Bilirubin, Total 0.38 mg/dL (0.2-1.0); CO2 25.6 mmol/L (21.0-32.0); CREATININE 1.6 mg/dL (0.55-1.02); Calcium 9.8 mg/dL (8.5-10.1); Chloride 107 mmol/L (98-107); Estimated GFR 33.63 (mL/min/1.73m2); FREE T4 1.12 ng/dL (0.76-1.46); Glucose 111 mg/dL (74-106); Potassium 4.3 mmol/L (3.5-5.1); Sodium 140 mmol/L (136-145); TSH 2.23 uIU/mL (0.36-3.74); Total Protein 6.9 g/dL (6.4-8.2)
== END 2024-10-01 16:51 | disposition home or self-care (01) ==
LOC: NCHCN 16:50
PROVIDERS: PCP Student in an Organized Health Care Education/Training Program; Visit Provider Student in an Organized Health Care Education/Training Program
DX: R19.7 Diarrhea, unspecified (principal)
CPT/HCPCS: 80053; 84439; 84443; 85025

== ENCOUNTER 2024-10-11 10:19 | Outpatient (REF) | payer MEDICARE, MEDICAID, SELFPAY ==
[2024-10-12 11:08] LABS: Epithelial Cells Rare HPF (Negative); RBC 0-2 HPF (0-2); WBC 0-2 HPF (0-5)
[2024-10-12 11:09] LABS: Bacteria Rare HPF (Negative); C & S Indicated? C&S Done As Ordered; Crystals Negative HPF (Negative); Mucus Negative (Negative); Other Cells Rare Transitional (Negative)
== END 2024-10-11 10:20 | disposition home or self-care (01) ==
LOC: NCHCN 10:19
PROVIDERS: PCP Student in an Organized Health Care Education/Training Program; Visit Provider Student in an Organized Health Care Education/Training Program
DX: R35.0 Frequency of micturition (principal); R82.89 Other abnormal findings on cytological and histological examination of urine
CPT/HCPCS: 81015; 87086

== ENCOUNTER → 2024-10-20 09:47 | Outpatient (BNVA) | payer MEDICARE, MEDICAID, SELFPAY | PROVIDERS: PCP Student in an Organized Health Care Education/Training Program; Referring Provider Student in an Organized Health Care Education/Training Program; Visit Provider Psychiatry & Neurology Neurology | DX: I63.511 Cerebral infarction due to unspecified occlusion or stenosis of right middle cerebral artery (principal); F01.50 Vascular dementia, unspecified severity, without behavioral disturbance, psychotic disturbance, mood disturbance, and anxiety; G47.00 Insomnia, unspecified; E53.8 Deficiency of other specified B group vitamins | CPT/HCPCS: 99215; G2212 ==

== ENCOUNTER 2024-11-04 18:27 | Outpatient (REF) | payer MEDICARE, MEDICAID, SELFPAY ==
--- OUTSIDE RECORDS SUMMARY | 2024-11-04 18:29 | XMS_ITS | Clinical Summary ---
Author Organization [facility] Address [address] [place] [address] Care Team Providers Care Gate Person Name Role Phone Unavailable Primary Care Provider [...]
--- OUTSIDE RECORDS SUMMARY | 2024-11-04 18:29 | XMS_ITS | Referral Summary ---
Author Organization [facility] Address [address] [place] [address] Care Team Providers Care Validation Software Facilitator Name Role Phone Unavailable Primary Care Provider [...]
--- OUTSIDE RECORDS SUMMARY | 2024-11-04 18:29 | XMS_ITS | Encounter Summary ---
Author Organization [facility] Address [address] [place] [address] Care Team Providers Care Ash Worker Name Role Phone Unavailable Primary Care Provider Unavailabl e Encounter Details Date Type Department Care Team (Late st Contact Info) Description 12/11/2023 Lab Requisition [facility] Pathology & Laboratory Medicine - [facility] [address] [place] [address] Outr Resulting Lab, Provider Social History Tobacco [...] 4th Generation Negative Negative 12/12/2023 12:15 EDT [facility] Comment:If acute HIV-1 infec tion is suspected in a high risk patient, submit plasma specimen for HIV-1 RNA quantitation test. Blood VENOUS BLOOD / Unknown 12/11/2023 11:00 EDT 12/11/2023 21:23 EDT Narrative [facility] - 12/12/2023 12:15 EDT Fourth Generation assay performed on the Siemens Centaur XPT. us Provider Outr Resulting Lab IMMUNOLOGY AND SEROL OGY ORDERABLES Final Result [facility] [address] [place] [address] documented in this encounter Visit Diagnoses Not on filedocumented in this encounter
--- OUTSIDE RECORDS SUMMARY | 2024-11-04 18:29 | XMS_ITS | Encounter Summary ---
Author Organization [facility] Address [address] [place] [address] Care Team Providers Care Stone Paver Name Role Phone Unavailable Primary Care Provider Unavailabl e Encounter Details Date Type Department Care Team (Late st Contact Info) Description 12/11/2023 Lab Requisition [facility] Pathology & Laboratory Medicine - [facility] [address] [place] [address] Outr Resulting Lab, Provider Social History Tobacco [...] Syphilis Serology Negative Negative 12/12/2023 11:48 EDT [facility] Blood VENOUS BLOOD / Unknown 12/11/2023 11:00 EDT 12/11/2023 21:23 EDT us Provider Outr Resulting Lab IMMUNOLOGY AND SEROL OGY ORDERABLES Final Result [facility] [address] [place], [place] [id number] documented in this encounter Visit Diagnoses Not on filedocumented in this encounter
--- OUTSIDE RECORDS SUMMARY | 2024-11-04 18:30 | XMS_ITS | Data Portability ---
Author Organization [place] - [facility] [place] [address] [place] [address] Care Team Providers Care Rn Paralegal Name Role Phone RAMA LAINEZ Primary Care Provider Edvin HARLEY [employer] Hospital Admissions Officer GENOVEVA ATWOOD Neurologist [phone] Assessment Encounter Date Assessment Date Assessment LastModified by Organization Details LastModified Time 07/09/2024 07/09/2024 Supports at home : - OT, Nursing, Social Work [employer]worker [employer], Donna please w/supports. For Annual in September: Consider DEXA/risk factors of former smoker: Mammography: Life expectancy < 10 years, especially given recent stroke and advancing dementia, won't recommend future mammograms unless symptomatic. - Advanced Directive not on file [email or web address] Not available 07/09/2024 11:48:19 07/20/2024 07/20/2024 Care mgmt note 07/19/2024 states,Discharge home with resumption of full [facility] services and Community/[facility] er supports. Follow up with PCP and discharge plan of care as recommended. Donna will provide transportation. Patient/Family Education Needs: Review discharge instructions, limitations, medications and plan to follow up with community providers. Discuss ask me three. Services Needed at Discharge: Home Health Care Services (Resume [facility] RN, PT, OT, OCCUPATIONAL THERAPIST HOME BASED) and Homemaking Services (Provided by [facility]) Donna reports she has to call to resume services. General surgery appt. w/Dr. Young 08/02/2024: - Has Neuro appt. w/Dr. Mondragon 07/26/2024 Pt. likely overstimulated in hospital, now can rest at home so discussed with Donna she might be catching up on some sleep. [email or web address] Not available 07/20/2024 09:53:12 10/01/2024 10/01/2024 Patient presente d to office today for their Medicare Annual Wellness Visit. Pt. w/adv directive on file. She has life expectancy less than 10 years with established stroke/cardiac history. Mammograms not indicated. DEXA: Had normal BMD scan 12/31/2017 with no density measurements even close to osteopenia range, so we will defer doing this again. Declines Shingles Vaccine. Pt. has Advanced Directive on File from 08/13/2024. [email or web address] Not available 10/05/2024 06:21:33 Plan of Treatment Reminders Order Date Submit Date Provider Last Modified By Organization Details Last Modified Time Details Appointments Follow Up 30 2024 02:30P Clint Lainez Not available Not available Not available Lab O&P (ova & parasites ), stool [address] [facility] ([facility]), [address] [place] [address] [place], [address], 11/03/2024 13:43:13 C diff toxin DNA, stool - 1 sst and 1 lav [address] [facility] ([facility]), [address] [place] [address] [place], [address], 11/03/2024 13:43:13 CMP, serum or plasma 2024 025 [facility] (Registration ), [address] [place] [address] [place], [address], 10/01/2024 19:40:41 CBC w/ auto diff 2024 025 [facility] (Registration ), [address] [place] [address] [place], [address], 10/01/2024 19:25:40 TSH + free T4, serum 2024 025 [facility] (Registration ), [address] [place] [address] [place], [address], 10/11/2024 08:21:15 giardia + cryptospo ridium Ag, stool 2024 025 [email or web address] [facility] ([facility]), [address] [place] [address] [place], [address], 10/01/2024 17:21:31 gastroint estinal pathogens panel, culture, stool 2024 025 [email or web address] [facility] ([facility]), [address] [place] [address] [place], [address], 11/03/2024 13:43:13 CBC w/ auto diff 2023 024 [facility] (Registration ), [address] [place] [address] [place], [address], 07/20/2024 16:04:47 BMP, serum or plasma [address] [facility], [address] , [place], [address], 07/28/2024 10:41:09 magnesium , serum or plasma [address] [facility] (Registration ), [address] [place] [address] [place], [address], 07/27/2024 09:31:07 CBC w/ auto diff 2023 024 [facility] (Registration ), [address] [place] [address] [place], [address], 07/09/2024 16:14:29 BMP, serum or plasma [address] [facility] (Registration ), [address] [place] [address] [place], [address], 07/16/2024 16:54:56 magnesium , serum or plasma 2023 024 [email or web address] [facility] (Registration ), [address] [place] [address] [place], [address], 07/16/2024 16:55:13 culture, urine + sensitivi ty 2023 024 [facility] (Registration ), [address] [place] [address] [place], [address], 05/17/2024 08:14:58 microscop ic method, urine 2023 024 [facility] (Registration ), [address] [place] [address] [place], [address], 05/15/2024 08:48:21 urinalysi s, dipstick 2023 024 [email or web address] [facility], [address] [place] [address], [address], [place], [address], 05/14/2024 20:40:44 Referral None recorded. Procedures None recorded. Surgeries None recorded. Imaging None recorded. Medication Orders psyllium husk 0.4 gram capsule 2024 025 [email or web address] [id number], [address] [place] [address], [id number], 10/01/2024 17:21:31 Lactobaci llus acidophil us 1 billion cell tablet 2023 024 [facility] #[id number], [address] [place] [address], [id number], 07/20/2024 09:06:11 psyllium husk 0.4 gram capsule 2023 024 [facility] #[id number], [address] [place] [address], [phone], 07/09/2024 11:47:17 trazodone 50 mg tablet 2023 024 [facility], [address] [place], [place], [phone], 07/09/2024 11:47:17 cefuroxim e axetil 250 mg tablet 2023 024 [email or web address] [facility], [address] [place], [address], 07/01/2024 11:35:09 cefuroxim e axetil 250 mg tablet 2023 024 [email or web address] Not available 07/01/2024 11:35:09 Patient TargetsNo targets recorded. Patient Instructions Encounter Date Encounter Id Patient Instructions Last Modified By Organization Details Last Modified Time 05/14/2024 [id number] 1. I am concerne d that her symptoms may be related to a urinary tract infection thus I have gone ahead and given her her first tablet of antibiotic tonight and the remaining doses were sent to the [facility] in [place]. She will take this medication morning and [...] results. [email or web address] Not available 05/14/2024 20:58:45 07/09/2024 [id number] Keep the environment dark during the night [...] does not resolve. - Trial of Trazodone [email or web address] Not available 07/09/2024 10:05:30 07/20/2024 [id number] Continue to hold aspirin. [email or web address] Not available 07/20/2024 09:14:21 10/01/2024 [id number] Do a trial stopping of Atorvastatin for a few days and see if diarrhea resolves. I will send Imeldafernando Michelle again so roll picker at [facility] in [place] Complete stool studies/submit sample if diarrhea doesn't resolve using the above measures. [email or web address] Not available 10/05/2024 06:22:29 Reason for Referral None Reported. Results Created Date Observation Date Name Description Value Unit Range Abnormal Flag Note LastModifiedBy Organization Detail LastModifiedTime 05/14/20 24 05/14/2024 MICRO SCOPI C FINDI NGS WBC 10-20 hpf 0-5 abnormal Not Available [facility] (Registration ) [address] [place] [address] [place], [address], 05/14/2024 21:28:28 05/14/20 24 05/14/2024 MICRO SCOPI C FINDI NGS RBC 3-5 hpf 0-2 abnormal Not Available [facility] (Registration ) [address] [place] [address] [place], [address], 05/14/2024 21:28:28 05/14/20 24 05/14/2024 MICRO SCOPI C FINDI NGS epithelial cells Modera te hpf negati ve Not Available [facility] (Registration ) [address] [place] [address] [place], [address], 05/14/2024 21:28:28 05/14/20 24 05/14/2024 MICRO SCOPI C FINDI NGS bacteria Modera te hpf negati ve Not Available [facility] (Registration ) [address] [place] [address] [place], [address], 05/14/2024 21:28:28 05/14/20 24 05/14/2024 MICRO SCOPI C FINDI NGS crystals Negati ve hpf negati ve Not Available [facility] (Registration ) [address] [place] [address] [place], [address], 05/14/2024 21:28:28 05/14/20 24 05/14/2024 MICRO SCOPI C FINDI NGS mucus Negati ve negati ve Not Available [facility] (Registration ) [address] [place] [address] [place], [address], 05/14/2024 21:28:28 05/14/20 24 05/14/2024 MICRO SCOPI C FINDI NGS casts Negati ve lpf negati ve Not Available [facility] (Registration ) [address] [place] [address] [place], [address], 05/14/2024 21:28:28 05/14/20 24 05/14/2024 MICRO SCOPI C FINDI NGS C S indicated? C S Done As Ordere d Not Available [facility] (Registration ) [address] [place] [address] [address] [facility] [place], [address], 05/14/2024 21:28:28 05/14/20 24 05/16/2024 URINE CULTU RE urine culture Urine Cultu re Proba ble conta minat ed colle ction APPEA DEBBIE Mixed Gram Posit jr Haylee COLON Y COUNT Not Available [facility] (Registration ) [address] [place] [address] [place], [address], 05/16/2024 10:35:04 05/14/20 24 05/16/2024 URINE CULTU RE urine culture colon ies/m L 50,00 0 - 100,0 00 Day 1 Resul t ISOLA RAISA BELOW O:GPF M (ORGA NISM ID: 1.1) - GRAM POSIT JR HAYLEE ,MIXE D Urine Cultu re (ORGA NISM ID: 1.1) - COLON Y COUNT (ORGA NISM ID: 1.1) - 50,00 0 - 100,0 00 Not Available [facility] (Registration ) [address] [place] [address] [address] [facility] [place], [address], 05/16/2024 10:35:04 05/14/20 24 05/17/2024 URINE CULTU RE urine culture Urine Cultu re Proba ble conta minat ed colle ction APPEA DEBBIE Mixed Gram Posit jr Haylee APPEA DEBBIE Mixed Gram Posit jr Haylee COLON Y COUNT Not Available [facility] (Registration ) [address] [place] [address] [address] [facility] [place], [address], 05/17/2024 10:00:22 05/14/20 24 05/17/2024 URINE CULTU [...] ID: 1.1) - >100, 000 Not Available [facility] (Registration ) [address] [facility], [place], [address], 05/17/2024 10:00:22 05/14/20 24 05/14/2024 urina lysis , dipst ick Leukocytes Trace Not Available [address] [address], [place], [address], 05/14/2024 20:24:45 05/14/20 24 05/14/2024 urina lysis , dipst ick Nitrite negati ve Not Available [address] [address], [place], [address], 05/14/2024 20:24:45 05/14/20 24 05/14/2024 urina lysis , dipst ick Urobilinogen .2 Not Available [address] [address], [place], [address], 05/14/2024 20:24:45 05/14/20 24 05/14/2024 urina lysis , dipst ick Protein 100 Not Available [address] [address], [place], [address], 05/14/2024 20:24:45 05/14/20 24 05/14/2024 urina lysis , dipst ick pH 5.0 Not Available [address] [address], [place], [address], 05/14/2024 20:24:45 05/14/20 24 05/14/2024 urina lysis , dipst ick Blood Negati ve Not Available [address], [place], [address], 05/14/2024 20:24:45 05/14/20 24 05/14/2024 urina lysis , dipst ick Specific [place] 1.015 Not Available Yamil [address], [place], [address], 05/14/2024 20:24:45 05/14/20 24 05/14/2024 urina lysis , dipst ick Ketone Trace Not Available [address], [place], [address], 05/14/2024 20:24:45 05/14/20 24 05/14/2024 urina lysis , dipst ick Bilirubin Small Not Available [address], [place], [address], 05/14/2024 20:24:45 05/14/20 24 05/14/2024 urina lysis , dipst ick Glucose Negati ve Not Available [address], [place], [address], 05/14/2024 20:24:45 05/14/20 24 05/14/2024 urina lysis , dipst ick Appearance Clear Not Available [facility] [address], [place], [address], 05/14/2024 20:24:45 05/14/20 24 05/14/2024 urina lysis , dipst ick Color Dark Yellow Not Available [address], [place], [address], 05/14/2024 20:24:45 06/12/20 24 06/12/2024 URINE DRUG SCREE N ([facility] ) methadone Negati ve negati ve Not Available [address] [place], [address] 06/12/2024 20:21:43 06/12/20 24 06/12/2024 URINE DRUG SCREE N ([facility] ) benzodiazepi sharad Negati ve negati ve Benzo diaze pines are exten sivel y metab olize d and the paren t compo und may not be detec liz in urine . If clini shea suspi cion is high, pleas e notif y Lab for send- out testi ng. Not Available [address] [place], [address] 06/12/2024 20:21:43 06/12/20 24 06/12/2024 URINE DRUG SCREE N ([facility] ) cocaine Negati ve negati ve Not Available [address] [place], [address] 06/12/2024 20:21:43 06/12/20 24 06/12/2024 URINE DRUG SCREE N ([facility] ) amphetamines Negati ve negati ve Not Available [address] [place], [address] 06/12/2024 20:21:43 06/12/20 24 06/12/2024 URINE DRUG SCREE N ([facility] ) tetrahydroca nnabinol Negati ve negati ve Not Available [address] [place], [address] 06/12/2024 20:21:43 06/12/20 24 06/12/2024 URINE DRUG SCREE N ([facility] ) opiates Negati ve negati ve Not Available [address] [place], [address] 06/12/2024 20:21:43 06/12/20 24 06/12/2024 URINE DRUG SCREE N ([facility] ) barbiturates Negati ve negati ve Not Available [address] [place], [address] 06/12/2024 20:21:43 06/12/20 24 06/12/2024 URINE DRUG [...] tion of these resul ts. Not Available [address] [place], [address] 06/12/2024 20:21:43 06/12/20 24 06/12/2024 MICRO SCOPI C FINDI NGS WBC Negati ve hpf 0-5 Not Available [address] [place], [address] 06/12/2024 20:10:41 06/12/20 24 06/12/2024 MICRO SCOPI C FINDI NGS RBC Negati ve hpf 0-2 Not Available [address] [place], [address] 06/12/2024 20:10:41 06/12/20 24 06/12/2024 MICRO SCOPI C FINDI NGS epithelial cells Rare hpf negati ve Not Available [address] [place], [address] 06/12/2024 20:10:41 06/12/20 24 06/12/2024 MICRO SCOPI C FINDI NGS bacteria Rare hpf negati ve Not Available [address] [place], [address] 06/12/2024 20:10:41 06/12/20 24 06/12/2024 MICRO SCOPI C FINDI NGS crystals Negati ve hpf negati ve Not Available [address] [place], [address] 06/12/2024 20:10:41 06/12/20 24 06/12/2024 MICRO SCOPI C FINDI NGS mucus Negati ve negati ve Not Available [address] [place], [address] 06/12/2024 20:10:41 06/12/20 24 06/12/2024 MICRO SCOPI C FINDI NGS casts Negati ve lpf negati ve Not Available [address] [place], [address] 06/12/2024 20:10:41 06/12/20 24 06/12/2024 MICRO SCOPI C FINDI NGS C S indicated? No Not Available [address] [place], [address] 06/12/2024 20:10:41 06/12/20 24 06/12/2024 URINA LYSIS color Yellow yellow Not Available Marilin oliver [address] [place], [address] 06/12/2024 20:10:40 06/12/20 24 06/12/2024 URINA LYSIS clarity Clear clear Not Available Marilin oliver [address] [place], [address] 06/12/2024 20:10:40 06/12/20 24 06/12/2024 URINA LYSIS specific gravity 1.025 1.005- 1.025 normal Not Available [address] [place], [address] 06/12/2024 20:10:40 06/12/20 24 06/12/2024 URINA LYSIS pH 5.5 5-8 normal Not Available Marilin oliver [address] [place], [address] 06/12/2024 20:10:40 06/12/20 24 06/12/2024 URINA LYSIS leukocyte esterase Negati ve negati ve Not Available [address], [address] 06/12/2024 20:10:40 06/12/20 24 06/12/2024 URINA LYSIS nitrite Negati ve negati ve Not Available [address] [place], [address] 06/12/2024 20:10:40 06/12/20 24 06/12/2024 URINA LYSIS protein 30 mg/dL neg-tr erendira abnormal Not Available [address] [place], [address] 06/12/2024 20:10:40 06/12/20 24 06/12/2024 URINA LYSIS glucose Negati ve mg/dL negati ve Not Available [address], [address] 06/12/2024 20:10:40 06/12/20 24 06/12/2024 URINA LYSIS ketones Negati ve mg/dL negati ve Not Available [address], [address] 06/12/2024 20:10:40 06/12/20 24 06/12/2024 URINA LYSIS urobilinogen 0.2 mg/dL up to 0.2 Not Available [address], [address] 06/12/2024 20:10:40 06/12/20 24 06/12/2024 URINA LYSIS bilirubin Negati ve negati ve Not Available [address], [address] 06/12/2024 20:10:40 06/12/20 24 06/12/2024 URINA LYSIS blood Negati ve negati ve Not Available [address] [place], [address] 06/12/2024 20:10:40 06/12/20 24 06/12/2024 URINA LYSIS color Yellow yellow Not Available Marilin oliver [address] [place], [address] 06/12/2024 20:04:40 06/12/20 24 06/12/2024 URINA LYSIS clarity Clear clear Not Available Marilin oliver [address] [place], [address] 06/12/2024 20:04:40 06/12/20 24 06/12/2024 URINA LYSIS specific gravity 1.025 1.005- 1.025 normal Not Available [address], [address] 06/12/2024 20:04:40 06/12/20 24 06/12/2024 URINA LYSIS pH 5.5 5-8 normal Not Available Marilin oliver [address] [place], [address] 06/12/2024 20:04:40 06/12/20 24 06/12/2024 URINA LYSIS leukocyte esterase Negati ve negati ve Not Available [address], [address] 06/12/2024 20:04:40 06/12/20 24 06/12/2024 URINA LYSIS nitrite Negati ve negati ve Not Available [address], [address] 06/12/2024 20:04:40 06/12/20 24 06/12/2024 URINA LYSIS protein 30 mg/dL neg-tr erendira abnormal Not Available [address], [address] 06/12/2024 20:04:40 06/12/20 24 06/12/2024 URINA LYSIS glucose Negati ve mg/dL negati ve Not Available [address] [place], [address] 06/12/2024 20:04:40 06/12/20 24 06/12/2024 URINA LYSIS ketones Negati ve mg/dL negati ve Not Available [address] [place], [address] 06/12/2024 20:04:40 06/12/20 24 06/12/2024 URINA LYSIS urobilinogen 0.2 mg/dL up to 0.2 Not Available [address] [place], [address] 06/12/2024 20:04:40 06/12/20 24 06/12/2024 URINA LYSIS bilirubin Negati ve negati ve Not Available [address] [place], [address] 06/12/2024 20:04:40 06/12/20 24 06/12/2024 URINA LYSIS blood Negati ve negati ve Not Available [address] [place], [address] 06/12/2024 20:04:40 06/12/20 24 06/12/2024 ACETA MINOP HEN acetaminophe n < 2 ug/mL 10-30 Not Available Yamil marrero [address] [place], [address] 06/12/2024 18:20:32 06/12/20 24 06/12/2024 LIPAS E lipase 71 U/L 16-77 normal Not Available Marilin oliver [address] [place], [address] 06/12/2024 18:55:40 06/12/20 24 06/12/2024 TSH (W/RE F FT4) TSH (w/ref FT4) 1.49 uIU/m L 0.36-3 .74 normal Not Available [address] [place], [address] 06/12/2024 18:55:40 06/12/20 24 06/12/2024 MAGNE SIUM magnesium 2.0 mg/dL 1.8-2. 4 normal Not Available [address] [place], [address] 06/12/2024 18:55:39 06/12/20 24 06/12/2024 ETHYL ALCOH OL ethyl alcohol < 3.0 mg/dL <10 ETOH Refer ence Range = <10 mg/dL Legal Limit of Intox icati on is 80 mg/dL This test is inten ded only for Medic al purpo ses. Divid e resul t by 1000 to conve rt to %(w/v ) Not Available [address], [address] 06/12/2024 18:55:39 06/12/20 24 06/12/2024 CREAT INE KINAS E creatine kinase 81 U/L 26-192 normal Not Available Yamil marrero [address] [place], [address] 06/12/2024 18:55:38 06/12/20 24 06/12/2024 COMPR EHENS JR METAB OLIC PANEL calcium 9.5 mg/dL 8.5-10 .1 normal Not Available [address] [place], [address] 06/12/2024 18:55:38 06/12/20 24 06/12/2024 COMPR EHENS JR METAB OLIC PANEL glucose 162 mg/dL 74-106 high Not Available Marilin oliver [address] [place], [address] 06/12/2024 18:55:38 06/12/20 24 06/12/2024 COMPR EHENS JR METAB OLIC PANEL BUN 37 mg/dL 7-18 high Not Available Marilin oliver [address] [place], [address] 06/12/2024 18:55:38 06/12/20 24 06/12/2024 COMPR EHENS JR METAB OLIC PANEL creatinine 1.7 mg/dL 0.55-1 .02 high Not Available [address] [place], [address] 06/12/2024 18:55:38 06/12/20 24 06/12/2024 COMPR EHENS [...] young er-ag ed adult s. Not Available [address] [place], [address] 06/12/2024 18:55:38 06/12/20 24 06/12/2024 COMPR EHENS JR METAB OLIC PANEL total protein 7.4 g/dL 6.4-8. 2 normal Not Available [address] [place], [address] 06/12/2024 18:55:38 06/12/20 24 06/12/2024 COMPR EHENS JR METAB OLIC PANEL albumin 3.9 g/dL 3.4-5. 0 normal Not Available [address] [place], [address] 06/12/2024 18:55:38 06/12/20 24 06/12/2024 COMPR EHENS JR METAB OLIC PANEL bilirubin, total 0.52 mg/dL 0.2-1. 0 normal Not Available [address] [place], [address] 06/12/2024 18:55:38 06/12/20 24 06/12/2024 COMPR EHENS JR METAB OLIC PANEL alk phos 101 U/L 46-116 normal Not Available [address] [place], [address] 06/12/2024 18:55:38 06/12/20 24 06/12/2024 COMPR EHENS JR METAB OLIC PANEL sodium 144 mmol/ L 136-14 5 normal Not Available [address] [place], [address] 06/12/2024 18:55:38 06/12/20 24 06/12/2024 COMPR EHENS JR METAB OLIC PANEL potassium 3.6 mmol/ L 3.5-5. 1 normal Not Available [address], [address] 06/12/2024 18:55:38 06/12/20 24 06/12/2024 COMPR EHENS JR METAB OLIC PANEL chloride 108 mmol/ L 98-107 high Not Available [address] [place], [address] 06/12/2024 18:55:38 06/12/20 24 06/12/2024 COMPR EHENS JR METAB OLIC PANEL CO2 23.8 mmol/ L 21.0-3 2.0 normal Not Available [address] [place], [address] 06/12/2024 18:55:38 06/12/20 24 06/12/2024 COMPR EHENS JR METAB OLIC PANEL anion gap 12.2 mmol/ L 3-11 high Not Available [address] [place] [place], [address] 06/12/2024 18:55:38 06/12/20 24 06/12/2024 COMPR EHENS JR METAB OLIC PANEL AST 15 U/L 15-37 normal Not Available Marilin oliver [address] [place], [address] 06/12/2024 18:55:38 06/12/20 24 06/12/2024 COMPR EHENS JR METAB OLIC PANEL ALT 15 U/L 14-59 normal Not Available Marilin oliver [address] [place], [address] 06/12/2024 18:55:38 06/12/20 24 06/12/2024 COVID /FLU/ RSV PCR source Nasoph arynx Not Available Tiffani [address] [place], [address] 06/12/2024 18:35:33 06/12/20 24 06/12/2024 COVID /FLU/ [...] ry, and epide miolo gical infor oanh cao Testi ng perfo rmed at [facility] (CLIA #[id number]) on the Cephe id GeneX pert. Not Available [address] [facility] [place], [address] 06/12/2024 18:35:33 06/12/20 24 06/12/2024 COVID /FLU/ RSV PCR influenza A PCR Negati ve negati ve Not Available [address] [facility] [place], [address] 06/12/2024 18:35:33 06/12/20 24 06/12/2024 COVID /FLU/ RSV PCR influenza B PCR Negati ve negati ve Not Available [address] [facility] [place], [address] 06/12/2024 18:35:33 06/12/20 24 06/12/2024 COVID /FLU/ RSV PCR RSV PCR Negati ve negati ve Not Available [address] [facility] [place], [address] 06/12/2024 18:35:33 06/12/20 24 06/12/2024 PTT ACTIV ATED PTT activated 22.1 sec 23.6-3 2.8 low Hepar in Thera peuti c Range for PTT = 52-84 secon ds New Hepar in Thera peuti c Range 10/28 Not Available [address] [place], [address] 06/12/2024 18:13:30 06/12/20 24 06/12/2024 PROTH ROMBI N TIME prothrombin time 9.9 sec 9.1-11 .1 normal Not Available [address] [place], [address] 06/12/2024 18:13:30 06/12/20 24 06/12/2024 PROTH ROMBI N TIME INR 1.0 0.9-1. 1 normal Recom luis a d INR thera peuti c range s for orall y admin ister ed drugs are as follo ws: -Dustin dard Inten sity 2.0 to 3.0 -High er Inten sity 3.0 to 4.5 Not Available [address] [place], [address] 06/12/2024 18:13:30 06/12/20 24 06/12/2024 VALENCIA IA ammonia < 10 umol/ L 11-32 low Not Available [address] [place], [address] 06/12/2024 18:10:29 06/12/20 24 06/12/2024 COMPL ETE BLOOD COUNT W/DIF F WBC 7.41 10_3/ uL 4.4-10 .8 normal Not Available [address] [place], [address] 06/12/2024 18:08:30 06/12/20 24 06/12/2024 COMPL ETE BLOOD COUNT W/DIF F RBC 3.82 10_6/ uL 3.93-5 .22 low Not Available [address] [place], [address] 06/12/2024 18:08:30 06/12/20 24 06/12/2024 COMPL ETE BLOOD COUNT W/DIF F HGB 11.9 g/dL 11.2-1 5.7 normal Not Available [address] [place], [address] 06/12/2024 18:08:30 06/12/20 24 06/12/2024 COMPL ETE BLOOD COUNT W/DIF F HCT 34.8 % 36.0-4 6.0 low Not Available [address] [place], [address] 06/12/2024 18:08:30 06/12/20 24 06/12/2024 COMPL ETE BLOOD COUNT W/DIF F MCV 91 fL 80-95 normal Not Available [address] [place], [address] 06/12/2024 18:08:30 06/12/20 24 06/12/2024 COMPL ETE BLOOD COUNT W/DIF F MCH 31.2 pg 27.0-3 3.0 normal Not Available [address] [place], [address] 06/12/2024 18:08:30 06/12/20 24 06/12/2024 COMPL ETE BLOOD COUNT W/DIF F MCHC 34.2 % 32.0-3 6.0 normal Not Available [address] [place], [address] 06/12/2024 18:08:30 06/12/20 24 06/12/2024 COMPL ETE BLOOD COUNT W/DIF F RDW 12.2 % 11.7-1 4.6 normal Not Available [address] [place], [address] 06/12/2024 18:08:30 06/12/20 24 06/12/2024 COMPL ETE BLOOD COUNT W/DIF F platelet count 211 10_3/ uL 130-40 0 normal Not Available [address] [place], [address] 06/12/2024 18:08:30 06/12/20 24 06/12/2024 COMPL ETE BLOOD COUNT W/DIF F MPV 10.8 fL 8.0-11 .0 normal Not Available [address] [place], [address] 06/12/2024 18:08:30 06/12/20 24 06/12/2024 COMPL ETE BLOOD COUNT W/DIF F neutrophils % 58.3 % Not Available Yamil marrero [address] [place], [address] 06/12/2024 18:08:30 06/12/20 24 06/12/2024 COMPL ETE BLOOD COUNT W/DIF F lymphocytes % 33.3 % Not Available [address] [place], [address] 06/12/2024 18:08:30 06/12/20 24 06/12/2024 COMPL ETE BLOOD COUNT W/DIF F monocytes % 5.0 % Not Available [address] [place], [address] 06/12/2024 18:08:30 06/12/20 24 06/12/2024 COMPL ETE BLOOD COUNT W/DIF F eosinophils % 2.3 % Not Available [address] [place], [address] 06/12/2024 18:08:30 06/12/20 24 06/12/2024 COMPL ETE BLOOD COUNT W/DIF F basophils % 0.8 % Not Available [address] [place], [address] 06/12/2024 18:08:30 06/12/20 24 06/12/2024 COMPL ETE BLOOD COUNT W/DIF F immature grans % 0.3 % Not Available [address] [place], [address] 06/12/2024 18:08:30 06/12/20 24 06/12/2024 COMPL ETE BLOOD COUNT W/DIF F nucleated RBC 0.0 % 0.0-0. 3 normal Not Available [address] [place], [address] 06/12/2024 18:08:30 06/12/20 24 06/12/2024 COMPL ETE BLOOD COUNT W/DIF F absolute neutrophil count 4.32 10_3/ uL 1.2-6. 7 normal Not Available [address] [place], [address] 06/12/2024 18:08:30 06/12/20 24 06/12/2024 COMPL ETE BLOOD COUNT W/DIF F absolute lymphocyte count 2.47 10_3/ uL 1.2-3. 4 normal Not Available [address] [place], [address] 06/12/2024 18:08:30 06/12/20 24 06/12/2024 COMPL ETE BLOOD COUNT W/DIF F absolute monocyte count 0.37 10_3/ uL 0.1-0. 8 normal Not Available [address] [place], [address] 06/12/2024 18:08:30 06/12/20 24 06/12/2024 COMPL ETE BLOOD COUNT W/DIF F absolute eosinophil count 0.17 10_3/ uL 0.0-0. 7 normal Not Available [address], [address] 06/12/2024 18:08:30 06/12/20 24 06/12/2024 COMPL ETE BLOOD COUNT W/DIF F absolute basophil count 0.06 10_3/ uL 0.0-0. 2 normal Not Available [address] [place], [address] 06/12/2024 18:08:30 06/12/20 24 06/12/2024 VENOU S BLOOD GAS pH (venous) 7.30 7.31-7 .41 low Not Available [address] [place], [address] 06/12/2024 17:56:28 06/12/20 24 06/12/2024 VENOU S BLOOD GAS pCO2 (venous) 45 mmHg 41-51 normal Not Available [address] [place], [address] 06/12/2024 17:56:28 06/12/20 24 06/12/2024 VENOU S BLOOD GAS pO2 (venous) 31 mmHg Not Available [address] [place], [address] 06/12/2024 17:56:28 06/12/20 24 06/12/2024 VENOU S BLOOD GAS TCO2 (venous) 21 mmol/ L 24-29 low Not Available [address] [place], [address] 06/12/2024 17:56:28 06/12/20 24 06/12/2024 VENOU S BLOOD GAS HCO3 (venous) 22 mmol/ L 23-28 low Not Available [address], [address] 06/12/2024 17:56:28 06/12/20 24 06/12/2024 VENOU S BLOOD GAS BE (venous) -4 mmol/ L -2-3 low Not Available [address] [place], [address] 06/12/2024 17:56:28 06/12/20 24 06/12/2024 VENOU S BLOOD GAS O2 sat (venous) 57 % Not Available [facility] [address] [place], [address] 06/12/2024 17:56:28 06/12/20 24 06/12/2024 TSH (W/RE F FT4) TSH (w/ref FT4) 1.49 uIU/m L 0.36-3 .74 normal Not Available [address] [place], [address] 06/12/2024 18:45:41 06/12/20 24 06/12/2024 MAGNE SIUM magnesium 2.0 mg/dL 1.8-2. 4 normal Not Available [address] [place], [address] 06/12/2024 18:45:41 06/12/20 24 06/12/2024 ETHYL ALCOH OL ethyl alcohol < 3.0 mg/dL <10 ETOH Refer ence Range = <10 mg/dL Legal Limit of Intox icati on is 80 mg/dL This test is inten ded only for Medic al purpo ses. Divid e resul t by 1000 to conve rt to %(w/v ) Not Available [address], [address] 06/12/2024 18:45:40 06/12/20 24 06/12/2024 CREAT INE KINAS E creatine kinase 81 U/L 26-192 normal Not Available Horse Cavenguyen marrero [address] [place], [address] 06/12/2024 18:45:40 06/12/20 24 06/12/2024 COMPR EHENS JR METAB OLIC PANEL calcium 9.5 mg/dL 8.5-10 .1 normal Not Available [address] [place], [address] 06/12/2024 18:45:39 06/12/20 24 06/12/2024 COMPR EHENS JR METAB OLIC PANEL glucose 162 mg/dL 74-106 high Not Available Marilin oliver [address] [place], [address] 06/12/2024 18:45:39 06/12/20 24 06/12/2024 COMPR EHENS JR METAB OLIC PANEL BUN 37 mg/dL 7-18 high Not Available Marilin oliver [address] [place], [address] 06/12/2024 18:45:39 06/12/20 24 06/12/2024 COMPR EHENS JR METAB OLIC PANEL creatinine 1.7 mg/dL 0.55-1 .02 high Not Available [address] [place], [address] 06/12/2024 18:45:39 06/12/20 24 06/12/2024 COMPR EHENS [...] young er-ag ed adult s. Not Available [address] [place], [address] 06/12/2024 18:45:39 06/12/20 24 06/12/2024 COMPR EHENS JR METAB OLIC PANEL total protein 7.4 g/dL 6.4-8. 2 normal Not Available [address] [place], [address] 06/12/2024 18:45:39 06/12/20 24 06/12/2024 COMPR EHENS JR METAB OLIC PANEL albumin 3.9 g/dL 3.4-5. 0 normal Not Available [address] [place], [address] 06/12/2024 18:45:39 06/12/20 24 06/12/2024 COMPR EHENS JR METAB OLIC PANEL bilirubin, total 0.52 mg/dL 0.2-1. 0 normal Not Available [address] [place], [address] 06/12/2024 18:45:39 06/12/20 24 06/12/2024 COMPR EHENS JR METAB OLIC PANEL alk phos 101 U/L 46-116 normal Not Available [address] [place], [address] 06/12/2024 18:45:39 06/12/20 24 06/12/2024 COMPR EHENS JR METAB OLIC PANEL sodium 144 mmol/ L 136-14 5 normal Not Available [address], [address] 06/12/2024 18:45:39 06/12/20 24 06/12/2024 COMPR EHENS JR METAB OLIC PANEL potassium 3.6 mmol/ L 3.5-5. 1 normal Not Available [address] [place], [address] 06/12/2024 18:45:39 06/12/20 24 06/12/2024 COMPR EHENS JR METAB OLIC PANEL chloride 108 mmol/ L 98-107 high Not Available [address] [place], [address] 06/12/2024 18:45:39 06/12/20 24 06/12/2024 COMPR EHENS JR METAB OLIC PANEL CO2 23.8 mmol/ L 21.0-3 2.0 normal Not Available [address] [place], [address] 06/12/2024 18:45:39 06/12/20 24 06/12/2024 COMPR EHENS JR METAB OLIC PANEL anion gap 12.2 mmol/ L 3-11 high Not Available [address] [place], [address] 06/12/2024 18:45:39 06/12/20 24 06/12/2024 COMPR EHENS JR METAB OLIC PANEL AST 15 U/L 15-37 normal Not Available Marilin oliver [address] [place], [address] 06/12/2024 18:45:39 06/12/20 24 06/12/2024 COMPR EHENS JR METAB OLIC PANEL ALT 15 U/L 14-59 normal Not Available Marilin oliver [address] [place], [address] 06/12/2024 18:45:39 06/12/20 24 06/12/2024 TSH (W/RE F FT4) TSH (w/ref FT4) 1.49 uIU/m L 0.36-3 .74 normal Not Available [address] [place], [address] 06/12/2024 18:45:36 06/12/20 24 06/12/2024 MAGNE SIUM magnesium 2.0 mg/dL 1.8-2. 4 normal Not Available [address] [place], [address] 06/12/2024 18:45:36 06/12/20 24 06/12/2024 ETHYL ALCOH OL ethyl alcohol < 3.0 mg/dL <10 ETOH Refer ence Range = <10 mg/dL Legal Limit of Intox icati on is 80 mg/dL This test is inten ded only for Medic al purpo ses. Divid e resul t by 1000 to conve rt to %(w/v ) Not Available [address] [place], [address] 06/12/2024 18:45:35 06/12/20 24 06/12/2024 CREAT INE KINAS E creatine kinase 81 U/L 26-192 normal Not Available Yamil marrero [address] [place], [address] 06/12/2024 18:45:35 06/12/20 24 06/12/2024 COMPR EHENS JR METAB OLIC PANEL calcium 9.5 mg/dL 8.5-10 .1 normal Not Available [address] [place], [address] 06/12/2024 18:45:34 06/12/20 24 06/12/2024 COMPR EHENS JR METAB OLIC PANEL glucose 162 mg/dL 74-106 high Not Available Marilin oliver [address] [place], [address] 06/12/2024 18:45:34 06/12/20 24 06/12/2024 COMPR EHENS JR METAB OLIC PANEL BUN 37 mg/dL 7-18 high Not Available Marilin oliver [address] [place], [address] 06/12/2024 18:45:34 06/12/20 24 06/12/2024 COMPR EHENS JR METAB OLIC PANEL creatinine 1.7 mg/dL 0.55-1 .02 high Not Available [address] [place], [address] 06/12/2024 18:45:34 06/12/20 24 06/12/2024 COMPR EHENS [...] young er-ag ed adult s. Not Available [address] [place], [address] 06/12/2024 18:45:34 06/12/20 24 06/12/2024 COMPR EHENS JR METAB OLIC PANEL total protein 7.4 g/dL 6.4-8. 2 normal Not Available [address] [place], [address] 06/12/2024 18:45:34 06/12/20 24 06/12/2024 COMPR EHENS JR METAB OLIC PANEL albumin 3.9 g/dL 3.4-5. 0 normal Not Available [address], [address] 06/12/2024 18:45:34 06/12/20 24 06/12/2024 COMPR EHENS JR METAB OLIC PANEL bilirubin, total 0.52 mg/dL 0.2-1. 0 normal Not Available [address] [place], [address] 06/12/2024 18:45:34 06/12/20 24 06/12/2024 COMPR EHENS JR METAB OLIC PANEL alk phos 101 U/L 46-116 normal Not Available [address] [place], [address] 06/12/2024 18:45:34 06/12/20 24 06/12/2024 COMPR EHENS JR METAB OLIC PANEL sodium 144 mmol/ L 136-14 5 normal Not Available [address] [place], [address] 06/12/2024 18:45:34 06/12/20 24 06/12/2024 COMPR EHENS JR METAB OLIC PANEL potassium 3.6 mmol/ L 3.5-5. 1 normal Not Available [address], [address] 06/12/2024 18:45:34 06/12/20 24 06/12/2024 COMPR EHENS JR METAB OLIC PANEL chloride 108 mmol/ L 98-107 high Not Available [address] [place], [address] 06/12/2024 18:45:34 06/12/20 24 06/12/2024 COMPR EHENS JR METAB OLIC PANEL CO2 23.8 mmol/ L 21.0-3 2.0 normal Not Available [address] [place], [address] 06/12/2024 18:45:34 06/12/20 24 06/12/2024 COMPR EHENS JR METAB OLIC PANEL anion gap 12.2 mmol/ L 3-11 high Not Available [address] [place], [address] 06/12/2024 18:45:34 06/12/20 24 06/12/2024 COMPR EHENS JR METAB OLIC PANEL AST 15 U/L 15-37 normal Not Available Marilin [address] [place], [address] 06/12/2024 18:45:34 06/12/20 24 06/12/2024 COMPR EHENS JR METAB OLIC PANEL ALT 15 U/L 14-59 normal Not Available Marilin [address] [place], [address] 06/12/2024 18:45:34 06/12/20 24 06/12/2024 CREAT INE KINAS E creatine kinase 81 U/L 26-192 normal Not Available [facility] [address] [place], [address] 06/12/2024 18:21:32 06/12/20 24 06/12/2024 COMPR EHENS JR METAB OLIC PANEL total protein 7.4 g/dL 6.4-8. 2 normal Not Available [address] [place], [address] 06/12/2024 18:21:31 06/12/20 24 06/12/2024 COMPR EHENS JR METAB OLIC PANEL bilirubin, total 0.52 mg/dL 0.2-1. 0 normal Not Available [address] [place], [address] 06/12/2024 18:21:31 06/12/20 24 06/12/2024 COMPR EHENS JR METAB OLIC PANEL sodium 144 mmol/ L 136-14 5 normal Not Available [address] [place], [address] 06/12/2024 18:21:31 06/12/20 24 06/12/2024 COMPR EHENS JR METAB OLIC PANEL potassium 3.6 mmol/ L 3.5-5. 1 normal Not Available [address] [place], [address] 06/12/2024 18:21:31 06/12/20 24 06/12/2024 COMPR EHENS JR METAB OLIC PANEL chloride 108 mmol/ L 98-107 high Not Available [address] [place], [address] 06/12/2024 18:21:31 06/12/20 24 06/12/2024 COMPR EHENS JR METAB OLIC PANEL CO2 23.8 mmol/ L 21.0-3 2.0 normal Not Available [address], [address] 06/12/2024 18:21:31 06/12/20 24 06/12/2024 COMPR EHENS JR METAB OLIC PANEL anion gap 12.2 mmol/ L 3-11 high Not Available [address], [address] 06/12/2024 18:21:31 06/13/20 24 06/13/2024 MAGNE SIUM magnesium 1.8 mg/dL 1.8-2. 4 normal Not Available [address] [place], [address] 06/13/2024 07:03:39 06/13/20 24 06/13/2024 COMPR EHENS JR METAB OLIC PANEL calcium 9.0 mg/dL 8.5-10 .1 normal Not Available [address] [place], [address] 06/13/2024 07:03:38 06/13/20 24 06/13/2024 COMPR EHENS JR METAB OLIC PANEL glucose 104 mg/dL 74-106 normal Not Available Marilin oliver [address] [place], [address] 06/13/2024 07:03:38 06/13/20 24 06/13/2024 COMPR EHENS JR METAB OLIC PANEL BUN 34 mg/dL 7-18 high Not Available Marilin oliver [address] [place], [address] 06/13/2024 07:03:38 06/13/20 24 06/13/2024 COMPR EHENS JR METAB OLIC PANEL creatinine 1.6 mg/dL 0.55-1 .02 high Not Available [address] [place], [address] 06/13/2024 07:03:38 06/13/20 24 06/13/2024 COMPR EHENS [...] young er-ag ed adult s. Not Available [address] [place], [address] 06/13/2024 07:03:38 06/13/20 24 06/13/2024 COMPR EHENS JR METAB OLIC PANEL total protein 6.7 g/dL 6.4-8. 2 normal Not Available [address] [place], [address] 06/13/2024 07:03:38 06/13/20 24 06/13/2024 COMPR EHENS JR METAB OLIC PANEL albumin 3.5 g/dL 3.4-5. 0 normal Not Available [address] [place], [address] 06/13/2024 07:03:38 06/13/20 24 06/13/2024 COMPR EHENS JR METAB OLIC PANEL bilirubin, total 0.40 mg/dL 0.2-1. 0 normal Not Available [address] [place], [address] 06/13/2024 07:03:38 06/13/20 24 06/13/2024 COMPR EHENS JR METAB OLIC PANEL alk phos 91 U/L 46-116 normal Not Available [address] [place], [address] 06/13/2024 07:03:38 06/13/20 24 06/13/2024 COMPR EHENS JR METAB OLIC PANEL sodium 138 mmol/ L 136-14 5 normal Not Available [address] [place], [address] 06/13/2024 07:03:38 06/13/20 24 06/13/2024 COMPR EHENS JR METAB OLIC PANEL potassium 3.4 mmol/ L 3.5-5. 1 low Not Available [address] [place], [address] 06/13/2024 07:03:38 06/13/20 24 06/13/2024 COMPR EHENS JR METAB OLIC PANEL chloride 106 mmol/ L 98-107 normal Not Available [address] [place], [address] 06/13/2024 07:03:38 06/13/20 24 06/13/2024 COMPR EHENS JR METAB OLIC PANEL CO2 22.6 mmol/ L 21.0-3 2.0 normal Not Available [address] [place], [address] 06/13/2024 07:03:38 06/13/20 24 06/13/2024 COMPR EHENS JR METAB OLIC PANEL anion gap 9.4 mmol/ L 3-11 normal Not Available [address] [place], [address] 06/13/2024 07:03:38 06/13/20 24 06/13/2024 COMPR EHENS JR METAB OLIC PANEL AST 14 U/L 15-37 low Not Available Marilin oliver [address] [place], [address] 06/13/2024 07:03:38 06/13/20 24 06/13/2024 COMPR EHENS JR METAB OLIC PANEL ALT 12 U/L 14-59 low Not Available Marilin oliver [address] [place], [address] 06/13/2024 07:03:38 06/13/20 24 06/13/2024 COMPL ETE BLOOD COUNT NO DIFF WBC 8.48 10_3/ uL 4.4-10 .8 normal Not Available [address] [place], [address] 06/13/2024 06:47:37 06/13/20 24 06/13/2024 COMPL ETE BLOOD COUNT NO DIFF RBC 3.48 10_6/ uL 3.93-5 .22 low Not Available [address] [place], [address] 06/13/2024 06:47:37 06/13/20 24 06/13/2024 COMPL ETE BLOOD COUNT NO DIFF HGB 10.8 g/dL 11.2-1 5.7 low Not Available [address] [place], [address] 06/13/2024 06:47:37 06/13/20 24 06/13/2024 COMPL ETE BLOOD COUNT NO DIFF HCT 31.5 % 36.0-4 6.0 low Not Available [address] [place], [address] 06/13/2024 06:47:37 06/13/20 24 06/13/2024 COMPL ETE BLOOD COUNT NO DIFF MCV 91 fL 80-95 normal Not Available [address] [place], [address] 06/13/2024 06:47:37 06/13/20 24 06/13/2024 COMPL ETE BLOOD COUNT NO DIFF MCH 31.0 pg 27.0-3 3.0 normal Not Available [address] [place], [address] 06/13/2024 06:47:37 06/13/20 24 06/13/2024 COMPL ETE BLOOD COUNT NO DIFF MCHC 34.3 % 32.0-3 6.0 normal Not Available [address] [place], [address] 06/13/2024 06:47:37 06/13/20 24 06/13/2024 COMPL ETE BLOOD COUNT NO DIFF RDW 12.1 % 11.7-1 4.6 normal Not Available [address] [place], [address] 06/13/2024 06:47:37 06/13/20 24 06/13/2024 COMPL ETE BLOOD COUNT NO DIFF platelet count 200 10_3/ uL 130-40 0 normal Not Available [address], [address] 06/13/2024 06:47:37 06/13/2006/13/2024 COMPL ETE BLOOD COUNT NO DIFF MPV 10.5 fL 8.0-11 .0 normal Not Available [address] [place], [address] 06/13/2024 06:47:37 06/16/20 24 06/16/2024 COMPL ETE BLOOD COUNT W/DIF F WBC 10.78 10_3/ uL 4.4-10 .8 normal Not Available [address] [place], [address] 06/16/2024 15:02:01 06/16/2006/16/2024 COMPL ETE BLOOD COUNT W/DIF F RBC 3.86 10_6/ uL 3.93-5 .22 low Not Available [address], [address] 06/16/2024 15:02:01 06/16/20 24 06/16/2024 COMPL ETE BLOOD COUNT W/DIF F HGB 11.8 g/dL 11.2-1 5.7 normal Not Available [address] [place], [address] 06/16/2024 15:02:01 06/16/2006/16/2024 COMPL ETE BLOOD COUNT W/DIF F HCT 35.1 % 36.0-4 6.0 low Not Available [address] [place], [address] 06/16/2024 15:02:01 06/16/2006/16/2024 COMPL ETE BLOOD COUNT W/DIF F MCV 91 fL 80-95 normal Not Available Marilin oliver [address] [place], [address] 06/16/2024 15:02:01 06/16/20 24 06/16/2024 COMPL ETE BLOOD COUNT W/DIF F MCH 30.6 pg 27.0-3 3.0 normal Not Available [address] [place], [address] 06/16/2024 15:02:01 06/16/20 24 06/16/2024 COMPL ETE BLOOD COUNT W/DIF F MCHC 33.6 % 32.0-3 6.0 normal Not Available [address] [place], [address] 06/16/2024 15:02:01 06/16/20 24 06/16/2024 COMPL ETE BLOOD COUNT W/DIF F RDW 12.5 % 11.7-1 4.6 normal Not Available [address] [place], [address] 06/16/2024 15:02:01 06/16/20 24 06/16/2024 COMPL ETE BLOOD COUNT W/DIF F platelet count 256 10_3/ uL 130-40 0 normal Not Available [address] [place], [address] 06/16/2024 15:02:01 06/16/20 24 06/16/2024 COMPL ETE BLOOD COUNT W/DIF F MPV 10.2 fL 8.0-11 .0 normal Not Available [address] [place], [address] 06/16/2024 15:02:01 06/16/20 24 06/16/2024 COMPL ETE BLOOD COUNT W/DIF F neutrophils % 61.1 % Not Available [address] [place], [address] 06/16/2024 15:02:01 06/16/20 24 06/16/2024 COMPL ETE BLOOD COUNT W/DIF F lymphocytes % 29.4 % Not Available [address] [place], [address] 06/16/2024 15:02:01 06/16/20 24 06/16/2024 COMPL ETE BLOOD COUNT W/DIF F monocytes % 6.9 % Not Available [address] [place], [address] 06/16/2024 15:02:01 06/16/20 24 06/16/2024 COMPL ETE BLOOD COUNT W/DIF F eosinophils % 1.5 % Not Available [address] [place], [address] 06/16/2024 15:02:01 06/16/20 24 06/16/2024 COMPL ETE BLOOD COUNT W/DIF F basophils % 0.6 % Not Available [address] [place], [address] 06/16/2024 15:02:01 06/16/20 24 06/16/2024 COMPL ETE BLOOD COUNT W/DIF F immature grans % 0.5 % Not Available [address] [place], [address] 06/16/2024 15:02:01 06/16/20 24 06/16/2024 COMPL ETE BLOOD COUNT W/DIF F nucleated RBC 0.0 % 0.0-0. 3 normal Not Available [address], [address] 06/16/2024 15:02:01 06/16/20 24 06/16/2024 COMPL ETE BLOOD COUNT W/DIF F absolute neutrophil count 6.59 10_3/ uL 1.2-6. 7 normal Not Available [address] [place], [address] 06/16/2024 15:02:01 06/16/20 24 06/16/2024 COMPL ETE BLOOD COUNT W/DIF F absolute lymphocyte count 3.17 10_3/ uL 1.2-3. 4 normal Not Available [address] [place], [address] 06/16/2024 15:02:01 06/16/20 24 06/16/2024 COMPL ETE BLOOD COUNT W/DIF F absolute monocyte count 0.74 10_3/ uL 0.1-0. 8 normal Not Available [address] [place], [address] 06/16/2024 15:02:01 06/16/20 24 06/16/2024 COMPL ETE BLOOD COUNT W/DIF F absolute eosinophil count 0.16 10_3/ uL 0.0-0. 7 normal Not Available [address] [place], [address] 06/16/2024 15:02:01 06/16/20 24 06/16/2024 COMPL ETE BLOOD COUNT W/DIF F absolute basophil count 0.07 10_3/ uL 0.0-0. 2 normal Not Available [address] [place], [address] 06/16/2024 15:02:01 06/16/20 24 06/16/2024 BASIC METAB OLIC PANEL calcium 9.1 mg/dL 8.5-10 .1 normal Not Available [address] [place], [address] 06/16/2024 14:45:56 06/16/20 24 06/16/2024 BASIC METAB OLIC PANEL glucose 126 mg/dL 74-106 high Not Available Marilin oliver [address] [place], [address] 06/16/2024 14:45:56 06/16/20 24 06/16/2024 BASIC METAB OLIC PANEL BUN 26 mg/dL 7-18 high Not Available Marilin oliver [address] [place], [address] 06/16/2024 14:45:56 06/16/20 24 06/16/2024 BASIC METAB OLIC PANEL creatinine 1.7 mg/dL 0.55-1 .02 high Not Available [address] [place], [address] 06/16/2024 14:45:56 06/16/20 24 06/16/2024 BASIC METAB [...] young er-ag ed adult s. Not Available [address] [place], [address] 06/16/2024 14:45:56 06/16/20 24 06/16/2024 BASIC METAB OLIC PANEL sodium 139 mmol/ L 136-14 5 normal Not Available [address] [place], [address] 06/16/2024 14:45:56 06/16/20 24 06/16/2024 BASIC METAB OLIC PANEL potassium 3.4 mmol/ L 3.5-5. 1 low Not Available [address] [place], [address] 06/16/2024 14:45:56 06/16/20 24 06/16/2024 BASIC METAB OLIC PANEL chloride 104 mmol/ L 98-107 normal Not Available [address] [place], [address] 06/16/2024 14:45:56 06/16/20 24 06/16/2024 BASIC METAB OLIC PANEL CO2 25.3 mmol/ L 21.0-3 2.0 normal Not Available [address] [place], [address] 06/16/2024 14:45:56 06/16/2006/16/2024 BASIC METAB OLIC PANEL anion gap 9.7 mmol/ L 3-11 normal Not Available [address] [place], [address] 06/16/2024 14:45:56 06/17/2006/17/2024 BASIC METAB OLIC PANEL calcium 9.0 mg/dL 8.5-10 .1 normal Not Available [address] [place], [address] 06/17/2024 11:32:16 06/17/2006/17/2024 BASIC METAB OLIC PANEL glucose 116 mg/dL 74-106 high Not Available Marilin oliver [address] [place], [address] 06/17/2024 11:32:16 06/17/20 24 06/17/2024 BASIC METAB OLIC PANEL BUN 21 mg/dL 7-18 high Not Available Marilin oliver [address] [place], [address] 06/17/2024 11:32:16 06/17/20 24 06/17/2024 BASIC METAB OLIC PANEL creatinine 1.5 mg/dL 0.55-1 .02 high Not Available [address] [place], [address] 06/17/2024 11:32:16 06/17/20 24 06/17/2024 BASIC METAB [...] young er-ag ed adult s. Not Available [address], [address] 06/17/2024 11:32:16 06/17/20 24 06/17/2024 BASIC METAB OLIC PANEL sodium 139 mmol/ L 136-14 5 normal Not Available [address], [address] 06/17/2024 11:32:16 06/17/20 24 06/17/2024 BASIC METAB OLIC PANEL potassium 3.3 mmol/ L 3.5-5. 1 low Not Available [address] [place], [address] 06/17/2024 11:32:16 06/17/20 24 06/17/2024 BASIC METAB OLIC PANEL chloride 107 mmol/ L 98-107 normal Not Available [address] [place], [address] 06/17/2024 11:32:16 06/17/20 24 06/17/2024 BASIC METAB OLIC PANEL CO2 21.5 mmol/ L 21.0-3 2.0 normal Not Available [address] [place], [address] 06/17/2024 11:32:16 06/17/20 24 06/17/2024 BASIC METAB OLIC PANEL anion gap 10.5 mmol/ L 3-11 normal Not Available [address] [place], [address] 06/17/2024 11:32:16 06/17/20 24 06/17/2024 HEMOG LOBIN [...] pleme nt 1):S1 3-s28 . Not Available [address] [place], [address] 06/17/2024 06:25:25 06/17/20 24 06/17/2024 BASIC METAB OLIC PANEL calcium 9.0 mg/dL 8.5-10 .1 normal Not Available [address] [place], [address] 06/17/2024 05:57:23 06/17/20 24 06/17/2024 BASIC METAB OLIC PANEL glucose 107 mg/dL 74-106 high Not Available Marilin oliver [address] [place], [address] 06/17/2024 05:57:23 06/17/20 24 06/17/2024 BASIC METAB OLIC PANEL BUN 23 mg/dL 7-18 high Not Available Marilin oliver [address] [place], [address] 06/17/2024 05:57:23 06/17/20 24 06/17/2024 BASIC METAB OLIC PANEL creatinine 1.5 mg/dL 0.55-1 .02 high Not Available [address], [address] 06/17/2024 05:57:23 06/17/20 24 06/17/2024 BASIC METAB [...] young er-ag ed adult s. Not Available [address], [address] 06/17/2024 05:57:23 06/17/20 24 06/17/2024 BASIC METAB OLIC PANEL sodium 141 mmol/ L 136-14 5 normal Not Available [address], [address] 06/17/2024 05:57:23 06/17/2006/17/2024 BASIC METAB OLIC PANEL potassium 2.9 mmol/ L 3.5-5. 1 critical low Criti shea value repor liz to and readb ack from FÉLIX CHU (RN), [place] at 0554 06/17 by LAB.I DOTTIE Not Available [address] [place], [address] 06/17/2024 05:57:23 06/17/20 24 06/17/2024 BASIC METAB OLIC PANEL chloride 109 mmol/ L 98-107 high Not Available [address] [place], [address] 06/17/2024 05:57:23 06/17/20 24 06/17/2024 BASIC METAB OLIC PANEL CO2 20.7 mmol/ L 21.0-3 2.0 low Not Available [address] [place], [address] 06/17/2024 05:57:23 06/17/20 24 06/17/2024 BASIC METAB OLIC PANEL anion gap 11.3 mmol/ L 3-11 high Not Available [address] [place], [address] 06/17/2024 05:57:23 06/17/20 24 06/17/2024 COMPL ETE BLOOD COUNT W/DIF F WBC 8.86 10_3/ uL 4.4-10 .8 normal Not Available [address] [place], [address] 06/17/2024 05:44:23 06/17/20 24 06/17/2024 COMPL ETE BLOOD COUNT W/DIF F RBC 3.36 10_6/ uL 3.93-5 .22 low Not Available [address] [place], [address] 06/17/2024 05:44:23 06/17/20 24 06/17/2024 COMPL ETE BLOOD COUNT W/DIF F HGB 10.4 g/dL 11.2-1 5.7 low Not Available [address] [place], [address] 06/17/2024 05:44:23 06/17/20 24 06/17/2024 COMPL ETE BLOOD COUNT W/DIF F HCT 29.8 % 36.0-4 6.0 low Not Available [address] [place], [address] 06/17/2024 05:44:23 06/17/20 24 06/17/2024 COMPL ETE BLOOD COUNT W/DIF F MCV 89 fL 80-95 normal Not Available [address] [place], [address] 06/17/2024 05:44:23 06/17/20 24 06/17/2024 COMPL ETE BLOOD COUNT W/DIF F MCH 31.0 pg 27.0-3 3.0 normal Not Available [address] [place], [address] 06/17/2024 05:44:23 06/17/20 24 06/17/2024 COMPL ETE BLOOD COUNT W/DIF F MCHC 34.9 % 32.0-3 6.0 normal Not Available [address] [place], [address] 06/17/2024 05:44:23 06/17/20 24 06/17/2024 COMPL ETE BLOOD COUNT W/DIF F RDW 12.3 % 11.7-1 4.6 normal Not Available [address] [place], [address] 06/17/2024 05:44:23 06/17/20 24 06/17/2024 COMPL ETE BLOOD COUNT W/DIF F platelet count 219 10_3/ uL 130-40 0 normal Not Available [address] [place], [address] 06/17/2024 05:44:23 06/17/20 24 06/17/2024 COMPL ETE BLOOD COUNT W/DIF F MPV 10.5 fL 8.0-11 .0 normal Not Available [address] [place], [address] 06/17/2024 05:44:23 06/17/20 24 06/17/2024 COMPL ETE BLOOD COUNT W/DIF F neutrophils % 51.9 % Not Available [address] [place], [address] 06/17/2024 05:44:23 06/17/20 24 06/17/2024 COMPL ETE BLOOD COUNT W/DIF F lymphocytes % 37.2 % Not Available [address] [place], [address] 06/17/2024 05:44:23 06/17/20 24 06/17/2024 COMPL ETE BLOOD COUNT W/DIF F monocytes % 7.4 % Not Available [address] [place], [address] 06/17/2024 05:44:23 06/17/20 24 06/17/2024 COMPL ETE BLOOD COUNT W/DIF F eosinophils % 2.7 % Not Available [address] [place], [address] 06/17/2024 05:44:23 06/17/20 24 06/17/2024 COMPL ETE BLOOD COUNT W/DIF F basophils % 0.6 % Not Available [address] [place], [address] 06/17/2024 05:44:23 06/17/20 24 06/17/2024 COMPL ETE BLOOD COUNT W/DIF F immature grans % 0.2 % Not Available Yamil marrero [address] [place], [address] 06/17/2024 05:44:23 06/17/20 24 06/17/2024 COMPL ETE BLOOD COUNT W/DIF F nucleated RBC 0.0 % 0.0-0. 3 normal Not Available [address] [place], [address] 06/17/2024 05:44:23 06/17/20 24 06/17/2024 COMPL ETE BLOOD COUNT W/DIF F absolute neutrophil count 4.59 10_3/ uL 1.2-6. 7 normal Not Available [address] [place], [address] 06/17/2024 05:44:23 06/17/20 24 06/17/2024 COMPL ETE BLOOD COUNT W/DIF F absolute lymphocyte count 3.30 10_3/ uL 1.2-3. 4 normal Not Available [address], [address] 06/17/2024 05:44:23 06/17/20 24 06/17/2024 COMPL ETE BLOOD COUNT W/DIF F absolute monocyte count 0.66 10_3/ uL 0.1-0. 8 normal Not Available [address] [place], [address] 06/17/2024 05:44:23 06/17/20 24 06/17/2024 COMPL ETE BLOOD COUNT W/DIF F absolute eosinophil count 0.24 10_3/ uL 0.0-0. 7 normal Not Available [address] [place], [address] 06/17/2024 05:44:23 06/17/20 24 06/17/2024 COMPL ETE BLOOD COUNT W/DIF F absolute basophil count 0.05 10_3/ uL 0.0-0. 2 normal Not Available [address] [place], [address] 06/17/2024 05:44:23 07/02/20 24 07/02/2024 BASIC METAB OLIC PANEL calcium 9.3 mg/dL 8.5-10 .1 normal Not Available [address] [place], [address] 07/02/2024 16:18:07 07/02/20 24 07/02/2024 BASIC METAB OLIC PANEL glucose 110 mg/dL 74-106 high Not Available Marilin oliver [address] [place], [address] 07/02/2024 16:18:07 07/02/20 24 07/02/2024 BASIC METAB OLIC PANEL BUN 40 mg/dL 7-18 high Not Available Marilin oliver [address] [place], [address] 07/02/2024 16:18:07 07/02/20 24 07/02/2024 BASIC METAB OLIC PANEL creatinine 1.6 mg/dL 0.55-1 .02 high Not Available [address] [place], [address] 07/02/2024 16:18:07 07/02/20 24 07/02/2024 BASIC METAB [...] young er-ag ed adult s. Not Available [address] [place], [address] 07/02/2024 16:18:07 07/02/20 24 07/02/2024 BASIC METAB OLIC PANEL sodium 147 mmol/ L 136-14 5 high Not Available [address] [place], [address] 07/02/2024 16:18:07 07/02/20 24 07/02/2024 BASIC METAB OLIC PANEL potassium 3.9 mmol/ L 3.5-5. 1 normal Not Available [address] [place], [address] 07/02/2024 16:18:07 07/02/2007/02/2024 BASIC METAB OLIC PANEL chloride 116 mmol/ L 98-107 high Not Available [address] [place], [address] 07/02/2024 16:18:07 07/02/20 24 07/02/2024 BASIC METAB OLIC PANEL CO2 17.4 mmol/ L 21.0-3 2.0 low Not Available [address] [place], [address] 07/02/2024 16:18:07 07/02/2007/02/2024 BASIC METAB OLIC PANEL anion gap 13.6 mmol/ L 3-11 high Not Available [address], [address] 07/02/2024 16:18:07 07/09/20 24 07/09/2024 COMPL ETE BLOOD COUNT W/DIF F WBC 10.14 10_3/ uL 4.4-10 .8 normal Not Available [address] [place], [address] 07/09/2024 16:14:29 07/09/2007/09/2024 COMPL ETE BLOOD COUNT W/DIF F RBC 3.43 10_6/ uL 3.93-5 .22 low Not Available [address] [place], [address] 07/09/2024 16:14:29 07/09/20 24 07/09/2024 COMPL ETE BLOOD COUNT W/DIF F HGB 10.4 g/dL 11.2-1 5.7 low Not Available [address] [place], [address] 07/09/2024 16:14:29 07/09/2007/09/2024 COMPL ETE BLOOD COUNT W/DIF F HCT 32.0 % 36.0-4 6.0 low Not Available [address] [place], [address] 07/09/2024 16:14:29 07/09/2007/09/2024 COMPL ETE BLOOD COUNT W/DIF F MCV 93 fL 80-95 normal Not Available [address] [place], [address] 07/09/2024 16:14:29 07/09/20 24 07/09/2024 COMPL ETE BLOOD COUNT W/DIF F MCH 30.3 pg 27.0-3 3.0 normal Not Available [address] [place], [address] 07/09/2024 16:14:29 07/09/20 24 07/09/2024 COMPL ETE BLOOD COUNT W/DIF F MCHC 32.5 % 32.0-3 6.0 normal Not Available [address] [place], [address] 07/09/2024 16:14:29 07/09/20 24 07/09/2024 COMPL ETE BLOOD COUNT W/DIF F RDW 13.6 % 11.7-1 4.6 normal Not Available [address] [place], [address] 07/09/2024 16:14:29 07/09/20 24 07/09/2024 COMPL ETE BLOOD COUNT W/DIF F platelet count 286 10_3/ uL 130-40 0 normal Not Available [address] [place], [address] 07/09/2024 16:14:29 07/09/20 24 07/09/2024 COMPL ETE BLOOD COUNT W/DIF F MPV 11.3 fL 8.0-11 .0 high Not Available [address] [place], [address] 07/09/2024 16:14:29 07/09/20 24 07/09/2024 COMPL ETE BLOOD COUNT W/DIF F neutrophils % 75.1 % Not Available [facility] [address] [place], [address] 07/09/2024 16:14:29 07/09/20 24 07/09/2024 COMPL ETE BLOOD COUNT W/DIF F lymphocytes % 16.1 % Not Available [facility] [address] [place], [address] 07/09/2024 16:14:29 07/09/20 24 07/09/2024 COMPL ETE BLOOD COUNT W/DIF F monocytes % 6.5 % Not Available [address] [place], [address] 07/09/2024 16:14:29 07/09/20 24 07/09/2024 COMPL ETE BLOOD COUNT W/DIF F eosinophils % 1.3 % Not Available [address] [place], [address] 07/09/2024 16:14:29 07/09/20 24 07/09/2024 COMPL ETE BLOOD COUNT W/DIF F basophils % 0.6 % Not Available [address] [place], [address] 07/09/2024 16:14:29 07/09/20 24 07/09/2024 COMPL ETE BLOOD COUNT W/DIF F immature grans % 0.4 % Not Available [address] [facility] [place], [address] 07/09/2024 16:14:29 07/09/20 24 07/09/2024 COMPL ETE BLOOD COUNT W/DIF F nucleated RBC 0.0 % 0.0-0. 3 normal Not Available [address] [place], [address] 07/09/2024 16:14:29 07/09/20 24 07/09/2024 COMPL ETE BLOOD COUNT W/DIF F absolute neutrophil count 7.62 10_3/ uL 1.2-6. 7 high Not Available [address] [place], [address] 07/09/2024 16:14:29 07/09/20 24 07/09/2024 COMPL ETE BLOOD COUNT W/DIF F absolute lymphocyte count 1.63 10_3/ uL 1.2-3. 4 normal Not Available [address] [place], [address] 07/09/2024 16:14:29 07/09/20 24 07/09/2024 COMPL ETE BLOOD COUNT W/DIF F absolute monocyte count 0.66 10_3/ uL 0.1-0. 8 normal Not Available [address] [place], [address] 07/09/2024 16:14:29 07/09/20 24 07/09/2024 COMPL ETE BLOOD COUNT W/DIF F absolute eosinophil count 0.13 10_3/ uL 0.0-0. 7 normal Not Available [address], [address] 07/09/2024 16:14:29 07/09/20 24 07/09/2024 COMPL ETE BLOOD COUNT W/DIF F absolute basophil count 0.06 10_3/ uL 0.0-0. 2 normal Not Available [address], [address] 07/09/2024 16:14:29 07/09/20 24 07/09/2024 BASIC METAB OLIC PANEL calcium 9.2 mg/dL 8.5-10 .1 normal Not Available [address] [place], [address] 07/09/2024 16:20:26 07/09/20 24 07/09/2024 BASIC METAB OLIC PANEL glucose 228 mg/dL 74-106 high Not Available Marilin oliver [address] [place], [address] 07/09/2024 16:20:26 07/09/20 24 07/09/2024 BASIC METAB OLIC PANEL BUN 45 mg/dL 7-18 high Not Available Marilin oliver [address] [place], [address] 07/09/2024 16:20:26 07/09/20 24 07/09/2024 BASIC METAB OLIC PANEL creatinine 1.9 mg/dL 0.55-1 .02 high Not Available [address], [address] 07/09/2024 16:20:26 07/09/20 24 07/09/2024 BASIC METAB [...] young er-ag ed adult s. Not Available [address] [place], [address] 07/09/2024 16:20:26 07/09/2007/09/2024 BASIC METAB OLIC PANEL sodium 147 mmol/ L 136-14 5 high Not Available [address] [place], [address] 07/09/2024 16:20:26 07/09/2007/09/2024 BASIC METAB OLIC PANEL potassium 3.4 mmol/ L 3.5-5. 1 low Not Available [address] [place], [address] 07/09/2024 16:20:26 07/09/2007/09/2024 BASIC METAB OLIC PANEL chloride 112 mmol/ L 98-107 high Not Available [address] [place], [address] 07/09/2024 16:20:26 07/09/20 24 07/09/2024 BASIC METAB OLIC PANEL CO2 19.6 mmol/ L 21.0-3 2.0 low Not Available [address] [place], [address] 07/09/2024 16:20:26 07/09/2007/09/2024 BASIC METAB OLIC PANEL anion gap 15.4 mmol/ L 3-11 high Not Available [address] [place], [address] 07/09/2024 16:20:26 07/09/2007/09/2024 MAGNE SIUM magnesium 1.9 mg/dL 1.8-2. 4 normal Not Available [address] [place], [address] 07/09/2024 16:20:27 07/12/2007/12/2024 URINA LYSIS color Yellow yellow Not Available Marilin oliver [address] [place], [address] 07/12/2024 20:18:48 07/12/2007/12/2024 URINA LYSIS clarity Clear clear Not Available Marilin oliver [address] [place], [address] 07/12/2024 20:18:48 07/12/2007/12/2024 URINA LYSIS specific gravity 1.020 1.005- 1.025 normal Not Available [address], [address] 07/12/2024 20:18:48 07/12/2007/12/2024 URINA LYSIS pH 5.5 5-8 normal Not Available Marilin oliver [address] [place], [address] 07/12/2024 20:18:48 07/12/2007/12/2024 URINA LYSIS leukocyte esterase Negati ve negati ve Not Available [address] [place], [address] 07/12/2024 20:18:48 07/12/2007/12/2024 URINA LYSIS nitrite Negati ve negati ve Not Available [address], [address] 07/12/2024 20:18:48 07/12/2007/12/2024 URINA LYSIS protein Trace mg/dL neg-tr erendira Not Available [address] [place], [address] 07/12/2024 20:18:48 07/12/2007/12/2024 URINA LYSIS glucose Negati ve mg/dL negati ve Not Available [address], [address] 07/12/2024 20:18:48 07/12/2007/12/2024 URINA LYSIS ketones Negati ve mg/dL negati ve Not Available [address] [place], [address] 07/12/2024 20:18:48 07/12/2007/12/2024 URINA LYSIS urobilinogen 0.2 mg/dL up to 0.2 Not Available [address], [address] 07/12/2024 20:18:48 07/12/2007/12/2024 URINA LYSIS bilirubin Negati ve negati ve Not Available [address] [place], [address] 07/12/2024 20:18:48 07/12/2007/12/2024 URINA LYSIS blood Negati ve negati ve Not Available [address] [place], [address] 07/12/2024 20:18:48 07/12/2007/13/2024 URINE CULTU RE urine culture Urine Cultu re Day 1 Resul t NO GROWT H 24 HOURS Not Available [address] [place], [address] 07/13/2024 12:29:16 07/12/2007/14/2024 URINE CULTU RE urine culture Urine Cultu re APPEA DEBBIE Gram Posit jr Haylee COLON Y COUNT Not Available [address] [place], [address] 07/14/2024 08:16:51 07/12/2007/14/2024 URINE CULTU RE urine culture colon ies/m L <10,0 00 Day 1 Resul t NO GROWT H 24 HOURS Day 2 Resul t ISOLA RAISA BELOW O:GPF (ORGA NISM ID: [id number]) - GRAM POSIT JR HAYLEE Urine Cultu re (ORGA NISM ID: [id number]) - COLON Y COUNT (ORGA NISM ID: [id number]) - <10,0 00 Not Available [address] [place], [address] 07/14/2024 08:16:51 07/15/20 24 07/15/2024 COMPL ETE BLOOD COUNT W/DIF F WBC 17.56 10_3/ uL 4.4-10 .8 high Not Available [address] [place], [address] 07/15/2024 16:03:58 07/15/2007/15/2024 COMPL ETE BLOOD COUNT W/DIF F RBC 3.73 10_6/ uL 3.93-5 .22 low Not Available [address] [place], [address] 07/15/2024 16:03:58 07/15/2007/15/2024 COMPL ETE BLOOD COUNT W/DIF F HGB 11.3 g/dL 11.2-1 5.7 normal Not Available [address] [place], [address] 07/15/2024 16:03:58 07/15/2007/15/2024 COMPL ETE BLOOD COUNT W/DIF F HCT 32.4 % 36.0-4 6.0 low Not Available [address] [place], [address] 07/15/2024 16:03:58 07/15/2007/15/2024 COMPL ETE BLOOD COUNT W/DIF F MCV 87 fL 80-95 normal Not Available [address] [place], [address] 07/15/2024 16:03:58 07/15/2007/15/2024 COMPL ETE BLOOD COUNT W/DIF F MCH 30.3 pg 27.0-3 3.0 normal Not Available [address] [place], [address] 07/15/2024 16:03:58 07/15/2007/15/2024 COMPL ETE BLOOD COUNT W/DIF F MCHC 34.9 % 32.0-3 6.0 normal Not Available [address] [place], [address] 07/15/2024 16:03:58 07/15/2007/15/2024 COMPL ETE BLOOD COUNT W/DIF F RDW 13.1 % 11.7-1 4.6 normal Not Available [address] [place], [address] 07/15/2024 16:03:58 07/15/2007/15/2024 COMPL ETE BLOOD COUNT W/DIF F platelet count 351 10_3/ uL 130-40 0 normal Not Available [address] [place], [address] 07/15/2024 16:03:58 07/15/2007/15/2024 COMPL ETE BLOOD COUNT W/DIF F MPV 11.0 fL 8.0-11 .0 normal Not Available [address] [place], [address] 07/15/2024 16:03:58 07/15/2007/15/2024 COMPL ETE BLOOD COUNT W/DIF F neutrophils % 62.1 % Not Available [address] [place], [address] 07/15/2024 16:03:58 07/15/2007/15/2024 COMPL ETE BLOOD COUNT W/DIF F lymphocytes % 27.7 % Not Available [address] [place], [address] 07/15/2024 16:03:58 07/15/2007/15/2024 COMPL ETE BLOOD COUNT W/DIF F monocytes % 5.9 % Not Available [address] [facility] [place], [address] 07/15/2024 16:03:58 07/15/2007/15/2024 COMPL ETE BLOOD COUNT W/DIF F eosinophils % 2.1 % Not Available [address] [place], [address] 07/15/2024 16:03:58 07/15/2007/15/2024 COMPL ETE BLOOD COUNT W/DIF F basophils % 0.7 % Not Available [address] [facility] [place], [address] 07/15/2024 16:03:58 07/15/2007/15/2024 COMPL ETE BLOOD COUNT W/DIF F immature grans % 1.5 % Not Available [address] [place], [address] 07/15/2024 16:03:58 07/15/2007/15/2024 COMPL ETE BLOOD COUNT W/DIF F nucleated RBC 0.0 % 0.0-0. 3 normal Not Available [address] [place], [address] 07/15/2024 16:03:58 07/15/2007/15/2024 COMPL ETE BLOOD COUNT W/DIF F absolute neutrophil count 10.90 10_3/ uL 1.2-6. 7 high Not Available [address] [place], [address] 07/15/2024 16:03:58 07/15/2007/15/2024 COMPL ETE BLOOD COUNT W/DIF F absolute lymphocyte count 4.86 10_3/ uL 1.2-3. 4 high Not Available [address] [place], [address] 07/15/2024 16:03:58 07/15/2007/15/2024 COMPL ETE BLOOD COUNT W/DIF F absolute monocyte count 1.04 10_3/ uL 0.1-0. 8 high Not Available [address] [place], [address] 07/15/2024 16:03:58 07/15/2007/15/2024 COMPL ETE BLOOD COUNT W/DIF F absolute eosinophil count 0.37 10_3/ uL 0.0-0. 7 normal Not Available [address] [place], [address] 07/15/2024 16:03:58 07/15/2007/15/2024 COMPL ETE BLOOD COUNT W/DIF F absolute basophil count 0.12 10_3/ uL 0.0-0. 2 normal Not Available [address] [place], [address] 07/15/2024 16:03:58 07/15/2007/15/2024 OCCUL T BLOOD STOOL GUAIA C(1SP ) occult blood stool guaiac(1sp) Occul t Blood Stool Guaia c(1sp ) STOOL OCCUL T BLOOD #1 NEGAT JR Not Available [address], [address] 07/15/2024 17:04:06 07/16/2007/16/2024 TROPO LOPEZ I troponin [...] Bioti n (Aline min B7). Not Available [address] [place], [address] 07/16/2024 17:40:34 07/16/2007/16/2024 TROPO LOPEZ I troponin [...] Bioti n (Aline min B7). Not Available [address] [place], [address] 07/16/2024 16:33:29 07/16/2007/18/2024 URINE CULTU RE urine culture Urine Cultu re ACTIO N ID AND SUSCE PTIBI LITY TO FOLLO W APPEA DEBBIE Gram Negat jr Eugene APPEA DEBBIE Gram Negat jr Eugene COLON Y COUNT Not Available [address] [place], [address] 07/18/2024 07:55:55 07/16/2007/18/2024 URINE CULTU RE urine [...] zobac tarango S <=4 F Not Available [address] [facility] [place], [address] 07/18/2024 07:55:55 07/16/2007/16/2024 MICRO SCOPI C FINDI NGS WBC >50 hpf 0-5 abnormal Not Available [address] [facility] [place], [address] 07/16/2024 16:16:24 07/16/20 24 07/16/2024 MICRO SCOPI C FINDI NGS RBC 3-5 hpf 0-2 abnormal Not Available [address] [place], [address] 07/16/2024 16:16:24 07/16/20 24 07/16/2024 MICRO SCOPI C FINDI NGS epithelial cells Few hpf negati ve Not Available [address] [facility] [place], [address] 07/16/2024 16:16:24 07/16/20 24 07/16/2024 MICRO SCOPI C FINDI NGS other cells Negati ve negati ve Not Available [address] [place], [address] 07/16/2024 16:16:24 07/16/2007/16/2024 MICRO SCOPI C FINDI NGS bacteria Packed hpf negati ve Not Available [address] [place], [address] 07/16/2024 16:16:24 07/16/20 24 07/16/2024 MICRO SCOPI C FINDI NGS crystals Negati ve hpf negati ve Not Available [address], [address] 07/16/2024 16:16:24 07/16/2007/16/2024 MICRO SCOPI C FINDI NGS mucus Negati ve negati ve Not Available [address] [place], [address] 07/16/2024 16:16:24 07/16/2007/16/2024 MICRO SCOPI C FINDI NGS casts Negati ve lpf negati ve Not Available [address] [place], [address] 07/16/2024 16:16:24 07/16/2007/16/2024 MICRO SCOPI C FINDI NGS C S indicated? Yes Not Available [address] [place], [address] 07/16/2024 16:16:24 07/16/2007/16/2024 URINA LYSIS color Yellow yellow Not Available Marilin oliver [address] [place], [address] 07/16/2024 16:16:23 07/16/2007/16/2024 URINA LYSIS clarity Sl Cloudy clear Not Available Tiffani pina [address] [place], [address] 07/16/2024 16:16:23 07/16/2007/16/2024 URINA LYSIS specific gravity 1.010 1.005- 1.025 normal Not Available [address] [place], [address] 07/16/2024 16:16:23 07/16/20 24 07/16/2024 URINA LYSIS pH 6.0 5-8 normal Not Available Marilin oliver [address] [place], [address] 07/16/2024 16:16:23 07/16/2007/16/2024 URINA LYSIS leukocyte esterase Large negati ve abnormal Not Available [address], [address] 07/16/2024 16:16:23 07/16/2007/16/2024 URINA LYSIS nitrite Positi ve negati ve abnormal Not Available [address] [place], [address] 07/16/2024 16:16:23 07/16/2007/16/2024 URINA LYSIS protein Trace mg/dL neg-tr erendira Not Available [address] [place], [address] 07/16/2024 16:16:23 07/16/2007/16/2024 URINA LYSIS glucose Negati ve mg/dL negati ve Not Available [address] [place], [address] 07/16/2024 16:16:23 07/16/2007/16/2024 URINA LYSIS ketones Negati ve mg/dL negati ve Not Available [address] [place], [address] 07/16/2024 16:16:23 07/16/2007/16/2024 URINA LYSIS urobilinogen 0.2 mg/dL up to 0.2 Not Available [address], [address] 07/16/2024 16:16:23 07/16/2007/16/2024 URINA LYSIS bilirubin Negati ve negati ve Not Available [address] [place], [address] 07/16/2024 16:16:23 07/16/2007/16/2024 URINA LYSIS blood Trace- lysed negati ve abnormal Not Available [address] [place], [address] 07/16/2024 16:16:23 07/16/2007/16/2024 URINA LYSIS color Yellow yellow Not Available Marilin oliver [address] [place], [address] 07/16/2024 16:10:18 07/16/2007/16/2024 URINA LYSIS clarity Sl Cloudy clear Not Available Tiffani pina [address] [place], [address] 07/16/2024 16:10:18 07/16/2007/16/2024 URINA LYSIS specific gravity 1.010 1.005- 1.025 normal Not Available [address] [place], [address] 07/16/2024 16:10:18 07/16/2007/16/2024 URINA LYSIS pH 6.0 5-8 normal Not Available Marilin oliver [address] [place], [address] 07/16/2024 16:10:18 07/16/2007/16/2024 URINA LYSIS leukocyte esterase Large negati ve abnormal Not Available [address] [place], [address] 07/16/2024 16:10:18 07/16/2007/16/2024 URINA LYSIS nitrite Positi ve negati ve abnormal Not Available [address] [place], [address] 07/16/2024 16:10:18 07/16/2007/16/2024 URINA LYSIS protein Trace mg/dL neg-tr erendira Not Available [address] [place], [address] 07/16/2024 16:10:18 07/16/2007/16/2024 URINA LYSIS glucose Negati ve mg/dL negati ve Not Available [address] [place], [address] 07/16/2024 16:10:18 07/16/2007/16/2024 URINA LYSIS ketones Negati ve mg/dL negati ve Not Available [address] [place], [address] 07/16/2024 16:10:18 07/16/20 24 07/16/2024 URINA LYSIS urobilinogen 0.2 mg/dL up to 0.2 Not Available [address] [place], [address] 07/16/2024 16:10:18 07/16/2007/16/2024 URINA LYSIS bilirubin Negati ve negati ve Not Available [address] [facility] [place], [address] 07/16/2024 16:10:18 07/16/2007/16/2024 URINA LYSIS blood Trace- lysed negati ve abnormal Not Available [address] [facility] [place], [address] 07/16/2024 16:10:18 07/16/2007/17/2024 URINE CULTU RE urine culture Urine Cultu re ACTIO N ID AND SUSCE PTIBI LITY TO FOLLO W APPEA DEBBIE Gram Negat jr Eugene COLON Y COUNT Not Available [address] [place], [address] 07/17/2024 11:54:46 07/16/2007/17/2024 URINE CULTU RE urine culture colon ies/m L >100, 000 Day 1 Resul t ISOLA RAISA BELOW O:GNR (ORGA NISM ID: [id number]) - GRAM NEGAT JR EUGENE Urine Cultu re (ORGA NISM ID: 1.1) - COLON Y COUNT (ORGA NISM ID: 1.1) - >100, 000 Not Available [address] [facility] [place], [address] 07/17/2024 11:54:46 07/16/2007/16/2024 TROPO LOPEZ I troponin [...] Bioti n (Aline min B7). Not Available [address] [place], [address] 07/16/2024 14:34:00 07/16/2007/16/2024 MAGNE SIUM magnesium 2.1 mg/dL 1.8-2. 4 normal Not Available [address] [place], [address] 07/16/2024 14:34:00 07/16/2007/16/2024 COMPR EHENS JR METAB OLIC PANEL calcium 9.5 mg/dL 8.5-10 .1 normal Not Available [address] [place], [address] 07/16/2024 14:33:59 07/16/2007/16/2024 COMPR EHENS JR METAB OLIC PANEL glucose 142 mg/dL 74-106 high Not Available Marilin oliver [address] [place], [address] 07/16/2024 14:33:59 07/16/2007/16/2024 COMPR EHENS JR METAB OLIC PANEL BUN 35 mg/dL 7-18 high Not Available Marilin [address] [place], [address] 07/16/2024 14:33:59 07/16/2007/16/2024 COMPR EHENS JR METAB OLIC PANEL creatinine 2.1 mg/dL 0.55-1 .02 high Not Available [address] [facility] [place], [address] 07/16/2024 14:33:59 07/16/2007/16/2024 COMPR EHENS JR METAB [...] young er-ag ed adult s. Not Available [address] [place], [address] 07/16/2024 14:33:59 07/16/2007/16/2024 COMPR EHENS JR METAB OLIC PANEL total protein 7.4 g/dL 6.4-8. 2 normal Not Available [address] [place], [address] 07/16/2024 14:33:59 07/16/2007/16/2024 COMPR EHENS JR METAB OLIC PANEL albumin 3.4 g/dL 3.4-5. 0 normal Not Available [address] [place], [address] 07/16/2024 14:33:59 07/16/2007/16/2024 COMPR EHENS JR METAB OLIC PANEL bilirubin, total 0.41 mg/dL 0.2-1. 0 normal Not Available [address] [place], [address] 07/16/2024 14:33:59 07/16/2007/16/2024 COMPR EHENS JR METAB OLIC PANEL alk phos 112 U/L 46-116 normal Not Available [address] [place], [address] 07/16/2024 14:33:59 07/16/2007/16/2024 COMPR EHENS JR METAB OLIC PANEL sodium 141 mmol/ L 136-14 5 normal Not Available [address] [place], [address] 07/16/2024 14:33:59 07/16/2007/16/2024 COMPR EHENS JR METAB OLIC PANEL potassium 2.6 mmol/ L 3.5-5. 1 critical low Criti shea value MAGGIE VILLAGRAN repor liz to and readb ack from TRACEYRI MAX GLEASON , VASCULAR SONOGRAPHER at 1430 07/16 by LAB.B ONC Not Available [address] [place], [address] 07/16/2024 14:33:59 07/16/2007/16/2024 COMPR EHENS JR METAB OLIC PANEL chloride 105 mmol/ L 98-107 normal Not Available [address] [place], [address] 07/16/2024 14:33:59 07/16/2007/16/2024 COMPR EHENS JR METAB OLIC PANEL CO2 22.6 mmol/ L 21.0-3 2.0 normal Not Available [address] [place], [address] 07/16/2024 14:33:59 07/16/2007/16/2024 COMPR EHENS JR METAB OLIC PANEL anion gap 13.4 mmol/ L 3-11 high Not Available [address] [place], [address] 07/16/2024 14:33:59 07/16/2007/16/2024 COMPR EHENS JR METAB OLIC PANEL AST 29 U/L 15-37 normal Not Available [address] [place], [address] 07/16/2024 14:33:59 07/16/2007/16/2024 COMPR EHENS JR METAB OLIC PANEL ALT 26 U/L 14-59 normal Not Available [address] [place], [address] 07/16/2024 14:33:59 07/17/2007/17/2024 MAGNE SIUM magnesium 2.0 mg/dL 1.8-2. 4 normal Not Available [address] [place], [address] 07/17/2024 12:10:48 07/17/2007/17/2024 LAB ADD ON TEST lab add on test DONE Not Available [address] [place], [address] 07/17/2024 11:46:45 07/17/2007/17/2024 BASIC METAB OLIC PANEL calcium 8.8 mg/dL 8.5-10 .1 normal Not Available [address] [place], [address] 07/17/2024 06:55:30 07/17/2007/17/2024 BASIC METAB OLIC PANEL glucose 95 mg/dL 74-106 normal Not Available Marilin oliver [address] [place], [address] 07/17/2024 06:55:30 07/17/2007/17/2024 BASIC METAB OLIC PANEL BUN 30 mg/dL 7-18 high Not Available Marilin oliver [address] [place], [address] 07/17/2024 06:55:30 07/17/2007/17/2024 BASIC METAB OLIC PANEL creatinine 1.8 mg/dL 0.55-1 .02 high Not Available [address] [place], [address] 07/17/2024 06:55:30 07/17/2007/17/2024 BASIC METAB OLIC PANEL [...] young er-ag ed adult s. Not Available [address] [place], [address] 07/17/2024 06:55:30 07/17/2007/17/2024 BASIC METAB OLIC PANEL sodium 146 mmol/ L 136-14 5 high Not Available [address] [place], [address] 07/17/2024 06:55:30 07/17/2007/17/2024 BASIC METAB OLIC PANEL potassium 3.1 mmol/ L 3.5-5. 1 low Not Available [address] [place], [address] 07/17/2024 06:55:30 07/17/2007/17/2024 BASIC METAB OLIC PANEL chloride 111 mmol/ L 98-107 high Not Available [address] [place], [address] 07/17/2024 06:55:30 07/17/2007/17/2024 BASIC METAB OLIC PANEL CO2 23.7 mmol/ L 21.0-3 2.0 normal Not Available [address] [place], [address] 07/17/2024 06:55:30 07/17/2007/17/2024 BASIC METAB OLIC PANEL anion gap 11.3 mmol/ L 3-11 high Not Available [address] [place], [address] 07/17/2024 06:55:30 07/17/2007/17/2024 COMPL ETE BLOOD COUNT W/DIF F WBC 14.09 10_3/ uL 4.4-10 .8 high Not Available [address] [place], [address] 07/17/2024 06:46:28 07/17/2007/17/2024 COMPL ETE BLOOD COUNT W/DIF F RBC 2.98 10_6/ uL 3.93-5 .22 low Not Available [address] [place], [address] 07/17/2024 06:46:28 07/17/2007/17/2024 COMPL ETE BLOOD COUNT W/DIF F HGB 9.2 g/dL 11.2-1 5.7 low Not Available [address] [place], [address] 07/17/2024 06:46:28 07/17/2007/17/2024 COMPL ETE BLOOD COUNT W/DIF F HCT 25.7 % 36.0-4 6.0 low Not Available [address] [place], [address] 07/17/2024 06:46:28 07/17/2007/17/2024 COMPL ETE BLOOD COUNT W/DIF F MCV 86 fL 80-95 normal Not Available Marilin oliver [address] [place], [address] 07/17/2024 06:46:28 07/17/2007/17/2024 COMPL ETE BLOOD COUNT W/DIF F MCH 30.9 pg 27.0-3 3.0 normal Not Available [address] [place], [address] 07/17/2024 06:46:28 07/17/2007/17/2024 COMPL ETE BLOOD COUNT W/DIF F MCHC 35.8 % 32.0-3 6.0 normal Not Available [address] [place], [address] 07/17/2024 06:46:28 07/17/2007/17/2024 COMPL ETE BLOOD COUNT W/DIF F RDW 13.2 % 11.7-1 4.6 normal Not Available [address] [place], [address] 07/17/2024 06:46:28 07/17/2007/17/2024 COMPL ETE BLOOD COUNT W/DIF F platelet count 307 10_3/ uL 130-40 0 normal Not Available [address] [place], [address] 07/17/2024 06:46:28 07/17/2007/17/2024 COMPL ETE BLOOD COUNT W/DIF F MPV 10.5 fL 8.0-11 .0 normal Not Available [address] [place], [address] 07/17/2024 06:46:28 07/17/2007/17/2024 COMPL ETE BLOOD COUNT W/DIF F neutrophils % 62.3 % Not Available Horse Cavenguyen marrero [address] [place], [address] 07/17/2024 06:46:28 07/17/2007/17/2024 COMPL ETE BLOOD COUNT W/DIF F lymphocytes % 27.3 % Not Available Yamil marrero [address] [place], [address] 07/17/2024 06:46:28 07/17/2007/17/2024 COMPL ETE BLOOD COUNT W/DIF F monocytes % 6.4 % Not Available [address] [facility] [place], [address] 07/17/2024 06:46:28 07/17/2007/17/2024 COMPL ETE BLOOD COUNT W/DIF F eosinophils % 2.0 % Not Available [address] [place], [address] 07/17/2024 06:46:28 07/17/2007/17/2024 COMPL ETE BLOOD COUNT W/DIF F basophils % 0.4 % Not Available [address] [place], [address] 07/17/2024 06:46:28 07/17/2007/17/2024 COMPL ETE BLOOD COUNT W/DIF F immature grans % 1.6 % Not Available [address] [facility] [place], [address] 07/17/2024 06:46:28 07/17/2007/17/2024 COMPL ETE BLOOD COUNT W/DIF F nucleated RBC 0.0 % 0.0-0. 3 normal Not Available [address] [place], [address] 07/17/2024 06:46:28 07/17/2007/17/2024 COMPL ETE BLOOD COUNT W/DIF F absolute neutrophil count 8.78 10_3/ uL 1.2-6. 7 high Not Available [address] [place], [address] 07/17/2024 06:46:28 07/17/2007/17/2024 COMPL ETE BLOOD COUNT W/DIF F absolute lymphocyte count 3.85 10_3/ uL 1.2-3. 4 high Not Available [address] [place], [address] 07/17/2024 06:46:28 07/17/20 24 07/17/2024 COMPL ETE BLOOD COUNT W/DIF F absolute monocyte count 0.90 10_3/ uL 0.1-0. 8 high Not Available [address] [place], [address] 07/17/2024 06:46:28 07/17/2007/17/2024 COMPL ETE BLOOD COUNT W/DIF F absolute eosinophil count 0.28 10_3/ uL 0.0-0. 7 normal Not Available [address], [address] 07/17/2024 06:46:28 07/17/2007/17/2024 COMPL ETE BLOOD COUNT W/DIF F absolute basophil count 0.06 10_3/ uL 0.0-0. 2 normal Not Available [address], [address] 07/17/2024 06:46:28 07/18/2007/18/2024 C DIFF PCR C diff PCR Negati ve negati ve Not Available [address], [address] 07/18/2024 19:47:40 07/18/2007/18/2024 HEMOG LOBIN /ADI TOCRI T HGB 9.9 g/dL 11.2-1 5.7 low Not Available [address] [place], [address] 07/18/2024 14:31:24 07/18/2007/18/2024 HEMOG LOBIN /ADI TOCRI T HCT 28.5 % 36.0-4 6.0 low Not Available [address] [place], [address] 07/18/2024 14:31:24 07/19/2007/19/2024 BASIC METAB OLIC PANEL calcium 8.7 mg/dL 8.5-10 .1 normal Not Available [address] [place], [address] 07/19/2024 06:38:26 07/19/2007/19/2024 BASIC METAB OLIC PANEL glucose 110 mg/dL 74-106 high Not Available Marilin [address] [place], [address] 07/19/2024 06:38:26 07/19/2007/19/2024 BASIC METAB OLIC PANEL BUN 18 mg/dL 7-18 normal Not Available Marilin oliver [address] [place], [address] 07/19/2024 06:38:26 07/19/2007/19/2024 BASIC METAB OLIC PANEL creatinine 1.7 mg/dL 0.55-1 .02 high Not Available [address] [place], [address] 07/19/2024 06:38:26 07/19/2007/19/2024 BASIC METAB OLIC PANEL [...] young er-ag ed adult s. Not Available [address] [place], [address] 07/19/2024 06:38:26 07/19/2007/19/2024 BASIC METAB OLIC PANEL sodium 146 mmol/ L 136-14 5 high Not Available [address] [place], [address] 07/19/2024 06:38:26 07/19/2007/19/2024 BASIC METAB OLIC PANEL potassium 3.3 mmol/ L 3.5-5. 1 low Not Available [address] [place], [address] 07/19/2024 06:38:26 07/19/2007/19/2024 BASIC METAB OLIC PANEL chloride 112 mmol/ L 98-107 high Not Available [address] [place], [address] 07/19/2024 06:38:26 07/19/2007/19/2024 BASIC METAB OLIC PANEL CO2 22.9 mmol/ L 21.0-3 2.0 normal Not Available [address] [place], [address] 07/19/2024 06:38:26 07/19/20 24 07/19/2024 BASIC METAB OLIC PANEL anion gap 11.1 mmol/ L 3-11 high Not Available [address] [place], [address] 07/19/2024 06:38:26 07/19/20 24 07/19/2024 COMPL ETE BLOOD COUNT W/DIF F WBC 13.86 10_3/ uL 4.4-10 .8 high Not Available [address] [place], [address] 07/19/2024 06:26:26 07/19/20 24 07/19/2024 COMPL ETE BLOOD COUNT W/DIF F RBC 3.15 10_6/ uL 3.93-5 .22 low Not Available [address] [place], [address] 07/19/2024 06:26:26 07/19/20 24 07/19/2024 COMPL ETE BLOOD COUNT W/DIF F HGB 9.5 g/dL 11.2-1 5.7 low Not Available [address] [place], [address] 07/19/2024 06:26:26 07/19/20 24 07/19/2024 COMPL ETE BLOOD COUNT W/DIF F HCT 28.0 % 36.0-4 6.0 low Not Available [address] [place], [address] 07/19/2024 06:26:26 07/19/20 24 07/19/2024 COMPL ETE BLOOD COUNT W/DIF F MCV 89 fL 80-95 normal Not Available Marilin [address] [place], [address] 07/19/2024 06:26:26 07/19/20 24 07/19/2024 COMPL ETE BLOOD COUNT W/DIF F MCH 30.2 pg 27.0-3 3.0 normal Not Available [address] [place], [address] 07/19/2024 06:26:26 07/19/2007/19/2024 COMPL ETE BLOOD COUNT W/DIF F MCHC 33.9 % 32.0-3 6.0 normal Not Available [address] [place], [address] 07/19/2024 06:26:26 07/19/2007/19/2024 COMPL ETE BLOOD COUNT W/DIF F RDW 13.6 % 11.7-1 4.6 normal Not Available [address] [place], [address] 07/19/2024 06:26:26 07/19/2007/19/2024 COMPL ETE BLOOD COUNT W/DIF F platelet count 308 10_3/ uL 130-40 0 normal Not Available [address] [place], [address] 07/19/2024 06:26:26 07/19/2007/19/2024 COMPL ETE BLOOD COUNT W/DIF F MPV 10.3 fL 8.0-11 .0 normal Not Available [address] [place], [address] 07/19/2024 06:26:26 07/19/2007/19/2024 COMPL ETE BLOOD COUNT W/DIF F neutrophils % 52.9 % Not Available [address] [place], [address] 07/19/2024 06:26:26 07/19/2007/19/2024 COMPL ETE BLOOD COUNT W/DIF F lymphocytes % 33.9 % Not Available [address] [place], [address] 07/19/2024 06:26:26 07/19/2007/19/2024 COMPL ETE BLOOD COUNT W/DIF F monocytes % 7.4 % Not Available [address] [place], [address] 07/19/2024 06:26:26 07/19/20 24 07/19/2024 COMPL ETE BLOOD COUNT W/DIF F eosinophils % 3.0 % Not Available [address] [place], [address] 07/19/2024 06:26:26 07/19/2007/19/2024 COMPL ETE BLOOD COUNT W/DIF F basophils % 0.6 % Not Available [address] [place], [address] 07/19/2024 06:26:26 07/19/2007/19/2024 COMPL ETE BLOOD COUNT W/DIF F immature grans % 2.2 % Not Available [address] [place], [address] 07/19/2024 06:26:26 07/19/2007/19/2024 COMPL ETE BLOOD COUNT W/DIF F nucleated RBC 0.0 % 0.0-0. 3 normal Not Available [address], [address] 07/19/2024 06:26:26 07/19/20 24 07/19/2024 COMPL ETE BLOOD COUNT W/DIF F absolute neutrophil count 7.33 10_3/ uL 1.2-6. 7 high Not Available [address], [address] 07/19/2024 06:26:26 07/19/20 24 07/19/2024 COMPL ETE BLOOD COUNT W/DIF F absolute lymphocyte count 4.70 10_3/ uL 1.2-3. 4 high Not Available [address] [place], [address] 07/19/2024 06:26:26 07/19/2007/19/2024 COMPL ETE BLOOD COUNT W/DIF F absolute monocyte count 1.03 10_3/ uL 0.1-0. 8 high Not Available [address] [place], [address] 07/19/2024 06:26:26 07/19/20 24 07/19/2024 COMPL ETE BLOOD COUNT W/DIF F absolute eosinophil count 0.42 10_3/ uL 0.0-0. 7 normal Not Available [address] [place], [address] 07/19/2024 06:26:26 07/19/20 24 07/19/2024 COMPL ETE BLOOD COUNT W/DIF F absolute basophil count 0.08 10_3/ uL 0.0-0. 2 normal Not Available [address] [place], [address] 07/19/2024 06:26:26 07/20/2007/20/2024 COMPL ETE BLOOD COUNT W/DIF F WBC 15.12 10_3/ uL 4.4-10 .8 high Not Available [address] [place], [address] 07/20/2024 16:04:47 07/20/2007/20/2024 COMPL ETE BLOOD COUNT W/DIF F RBC 3.51 10_6/ uL 3.93-5 .22 low Not Available [address], [address] 07/20/2024 16:04:47 07/20/2007/20/2024 COMPL ETE BLOOD COUNT W/DIF F HGB 10.7 g/dL 11.2-1 5.7 low Not Available [address] [place], [address] 07/20/2024 16:04:47 07/20/2007/20/2024 COMPL ETE BLOOD COUNT W/DIF F HCT 31.5 % 36.0-4 6.0 low Not Available [address] [place], [address] 07/20/2024 16:04:47 07/20/2007/20/2024 COMPL ETE BLOOD COUNT W/DIF F MCV 90 fL 80-95 normal Not Available Marilin oliver [address] [place], [address] 07/20/2024 16:04:47 07/20/2007/20/2024 COMPL ETE BLOOD COUNT W/DIF F MCH 30.5 pg 27.0-3 3.0 normal Not Available [address] [place], [address] 07/20/2024 16:04:47 07/20/2007/20/2024 COMPL ETE BLOOD COUNT W/DIF F MCHC 34.0 % 32.0-3 6.0 normal Not Available [address] [place], [address] 07/20/2024 16:04:47 07/20/2007/20/2024 COMPL ETE BLOOD COUNT W/DIF F RDW 14.0 % 11.7-1 4.6 normal Not Available [address] [place], [address] 07/20/2024 16:04:47 07/20/2007/20/2024 COMPL ETE BLOOD COUNT W/DIF F platelet count 363 10_3/ uL 130-40 0 normal Not Available [address] [place], [address] 07/20/2024 16:04:47 07/20/2007/20/2024 COMPL ETE BLOOD COUNT W/DIF F MPV 11.2 fL 8.0-11 .0 high Not Available [address] [place], [address] 07/20/2024 16:04:47 07/20/2007/20/2024 COMPL ETE BLOOD COUNT W/DIF F neutrophils % 60.5 % Not Available [address] [place], [address] 07/20/2024 16:04:47 07/20/2007/20/2024 COMPL ETE BLOOD COUNT W/DIF F lymphocytes % 27.4 % Not Available [address] [place], [address] 07/20/2024 16:04:47 07/20/2007/20/2024 COMPL ETE BLOOD COUNT W/DIF F monocytes % 5.8 % Not Available [address] [place], [address] 07/20/2024 16:04:47 07/20/20 24 07/20/2024 COMPL ETE BLOOD COUNT W/DIF F eosinophils % 3.4 % Not Available [address] [place], [address] 07/20/2024 16:04:47 07/20/20 24 07/20/2024 COMPL ETE BLOOD COUNT W/DIF F basophils % 0.8 % Not Available [address] [place], [address] 07/20/2024 16:04:47 07/20/20 24 07/20/2024 COMPL ETE BLOOD COUNT W/DIF F immature grans % 2.1 % Not Available [address] [place], [address] 07/20/2024 16:04:47 07/20/20 24 07/20/2024 COMPL ETE BLOOD COUNT W/DIF F nucleated RBC 0.0 % 0.0-0. 3 normal Not Available [address] [place], [address] 07/20/2024 16:04:47 07/20/20 24 07/20/2024 COMPL ETE BLOOD COUNT W/DIF F absolute neutrophil count 9.15 10_3/ uL 1.2-6. 7 high Not Available [address] [place], [address] 07/20/2024 16:04:47 07/20/20 24 07/20/2024 COMPL ETE BLOOD COUNT W/DIF F absolute lymphocyte count 4.14 10_3/ uL 1.2-3. 4 high Not Available [address], [address] 07/20/2024 16:04:47 07/20/20 24 07/20/2024 COMPL ETE BLOOD COUNT W/DIF F absolute monocyte count 0.88 10_3/ uL 0.1-0. 8 high Not Available [address] [place], [address] 07/20/2024 16:04:47 07/20/2007/20/2024 COMPL ETE BLOOD COUNT W/DIF F absolute eosinophil count 0.51 10_3/ uL 0.0-0. 7 normal Not Available [address], [address] 07/20/2024 16:04:47 07/20/2007/20/2024 COMPL ETE BLOOD COUNT W/DIF F absolute basophil count 0.12 10_3/ uL 0.0-0. 2 normal Not Available [address], [address] 07/20/2024 16:04:47 07/20/2007/20/2024 BASIC METAB OLIC PANEL calcium 9.5 mg/dL 8.5-10 .1 normal Not Available [address] [place], [address] 07/20/2024 17:26:06 07/20/2007/20/2024 BASIC METAB OLIC PANEL glucose 126 mg/dL 74-106 high Not Available Marilin oliver [address] [place], [address] 07/20/2024 17:26:06 07/20/2007/20/2024 BASIC METAB OLIC PANEL BUN 15 mg/dL 7-18 normal Not Available Marilin oliver [address] [place], [address] 07/20/2024 17:26:06 07/20/2007/20/2024 BASIC METAB OLIC PANEL creatinine 1.5 mg/dL 0.55-1 .02 high Not Available [address], [address] 07/20/2024 17:26:06 07/20/2007/20/2024 BASIC METAB OLIC PANEL [...] young er-ag ed adult s. Not Available [address], [address] 07/20/2024 17:26:06 07/20/20 24 07/20/2024 BASIC METAB OLIC PANEL sodium 145 mmol/ L 136-14 5 normal Not Available [address], [address] 07/20/2024 17:26:06 07/20/2007/20/2024 BASIC METAB OLIC PANEL potassium 3.6 mmol/ L 3.5-5. 1 normal Not Available [address], [address] 07/20/2024 17:26:06 07/20/2007/20/2024 BASIC METAB OLIC PANEL chloride 109 mmol/ L 98-107 high Not Available [address] [place], [address] 07/20/2024 17:26:06 07/20/20 24 07/20/2024 BASIC METAB OLIC PANEL CO2 23.6 mmol/ L 21.0-3 2.0 normal Not Available [address] [place], [address] 07/20/2024 17:26:06 07/20/2007/20/2024 BASIC METAB OLIC PANEL anion gap 12.4 mmol/ L 3-11 high Not Available [address], [address] 07/20/2024 17:26:06 07/20/2007/20/2024 MAGNE SIUM magnesium 2.0 mg/dL 1.8-2. 4 normal Not Available [address] [place], [address] 07/20/2024 17:26:07 07/22/2007/22/2024 OCCUL T BLOOD STOOL GUAIA C(1SP ) occult blood stool guaiac(1sp) Occul t Blood Stool Guaia c(1sp ) STOOL OCCUL T BLOOD #1 NEGAT JR Not Available [address], [address] 07/22/2024 16:18:22 07/27/20 24 07/27/2024 COMPL ETE BLOOD COUNT W/DIF F WBC 10.46 10_3/ uL 4.4-10 .8 normal Not Available [address] [place], [address] 07/27/2024 17:41:05 07/27/20 24 07/27/2024 COMPL ETE BLOOD COUNT W/DIF F RBC 3.43 10_6/ uL 3.93-5 .22 low Not Available [address] [place], [address] 07/27/2024 17:41:05 07/27/20 24 07/27/2024 COMPL ETE BLOOD COUNT W/DIF F HGB 10.5 g/dL 11.2-1 5.7 low Not Available [address] [place], [address] 07/27/2024 17:41:05 07/27/2007/27/2024 COMPL ETE BLOOD COUNT W/DIF F HCT 32.2 % 36.0-4 6.0 low Not Available [address] [place], [address] 07/27/2024 17:41:05 07/27/20 24 07/27/2024 COMPL ETE BLOOD COUNT W/DIF F MCV 94 fL 80-95 normal Not Available [address] [place], [address] 07/27/2024 17:41:05 07/27/20 24 07/27/2024 COMPL ETE BLOOD COUNT W/DIF F MCH 30.6 pg 27.0-3 3.0 normal Not Available [address] [place], [address] 07/27/2024 17:41:05 07/27/20 24 07/27/2024 COMPL ETE BLOOD COUNT W/DIF F MCHC 32.6 % 32.0-3 6.0 normal Not Available [address] [place], [address] 07/27/2024 17:41:05 07/27/20 24 07/27/2024 COMPL ETE BLOOD COUNT W/DIF F RDW 14.2 % 11.7-1 4.6 normal Not Available [address] [place], [address] 07/27/2024 17:41:05 11/05/20 24 07/27/2024 COMPL ETE BLOOD COUNT W/DIF F platelet count 298 10_3/ uL 130-40 0 normal Not Available [address] [place], [address] 07/27/2024 17:41:05 07/27/20 24 07/27/2024 COMPL ETE BLOOD COUNT W/DIF F MPV 10.9 fL 8.0-11 .0 normal Not Available [address] [place], [address] 07/27/2024 17:41:05 07/27/20 24 07/27/2024 COMPL ETE BLOOD COUNT W/DIF F neutrophils % 69.4 % Not Available [address] [place], [address] 07/27/2024 17:41:05 07/27/20 24 07/27/2024 COMPL ETE BLOOD COUNT W/DIF F lymphocytes % 21.8 % Not Available [address] [place], [address] 07/27/2024 17:41:05 07/27/20 24 07/27/2024 COMPL ETE BLOOD COUNT W/DIF F monocytes % 5.3 % Not Available [address] [place], [address] 07/27/2024 17:41:05 07/27/20 24 07/27/2024 COMPL ETE BLOOD COUNT W/DIF F eosinophils % 2.1 % Not Available [address] [place], [address] 07/27/2024 17:41:05 07/27/20 24 07/27/2024 COMPL ETE BLOOD COUNT W/DIF F basophils % 1.0 % Not Available [address] [place], [address] 07/27/2024 17:41:05 07/27/20 24 07/27/2024 COMPL ETE BLOOD COUNT W/DIF F immature grans % 0.4 % Not Available [address] [place], [address] 07/27/2024 17:41:05 07/27/20 24 07/27/2024 COMPL ETE BLOOD COUNT W/DIF F nucleated RBC 0.0 % 0.0-0. 3 normal Not Available [address], [address] 07/27/2024 17:41:05 07/27/20 24 07/27/2024 COMPL ETE BLOOD COUNT W/DIF F absolute neutrophil count 7.27 10_3/ uL 1.2-6. 7 high Not Available [address], [address] 07/27/2024 17:41:05 07/27/20 24 07/27/2024 COMPL ETE BLOOD COUNT W/DIF F absolute lymphocyte count 2.28 10_3/ uL 1.2-3. 4 normal Not Available [address] [place], [address] 07/27/2024 17:41:05 07/27/20 24 07/27/2024 COMPL ETE BLOOD COUNT W/DIF F absolute monocyte count 0.55 10_3/ uL 0.1-0. 8 normal Not Available [address], [address] 07/27/2024 17:41:05 07/27/20 24 07/27/2024 COMPL ETE BLOOD COUNT W/DIF F absolute eosinophil count 0.22 10_3/ uL 0.0-0. 7 normal Not Available [address] [place], [address] 07/27/2024 17:41:05 07/27/20 24 07/27/2024 COMPL ETE BLOOD COUNT W/DIF F absolute basophil count 0.10 10_3/ uL 0.0-0. 2 normal Not Available [address] [place], [address] 07/27/2024 17:41:05 07/27/20 24 07/27/2024 URINA LYSIS color Yellow yellow Not Available Marilin [address] [place], [address] 07/27/2024 17:58:08 07/27/20 24 07/27/2024 URINA LYSIS clarity Clear clear Not Available Marilin oliver [address] [place], [address] 07/27/2024 17:58:08 07/27/20 24 07/27/2024 URINA LYSIS specific gravity 1.010 1.005- 1.025 normal Not Available [address], [address] 07/27/2024 17:58:08 07/27/20 24 07/27/2024 URINA LYSIS pH 6.0 5-8 normal Not Available Marilin oliver [address] [place], [address] 07/27/2024 17:58:08 07/27/20 24 07/27/2024 URINA LYSIS leukocyte esterase Negati ve negati ve Not Available [address], [address] 07/27/2024 17:58:08 07/27/20 24 07/27/2024 URINA LYSIS nitrite Negati ve negati ve Not Available [address] [place], [address] 07/27/2024 17:58:08 07/27/20 24 07/27/2024 URINA LYSIS protein Negati ve mg/dL neg-tr erendira Not Available [address] [place], [address] 07/27/2024 17:58:08 07/27/20 24 07/27/2024 URINA LYSIS glucose Negati ve mg/dL negati ve Not Available [address] [place], [address] 07/27/2024 17:58:08 07/27/20 24 07/27/2024 URINA LYSIS ketones Negati ve mg/dL negati ve Not Available [address] [place], [address] 07/27/2024 17:58:08 07/27/20 24 07/27/2024 URINA LYSIS urobilinogen 0.2 mg/dL up to 0.2 Not Available [address] [place], [address] 07/27/2024 17:58:08 07/27/20 24 07/27/2024 URINA LYSIS bilirubin Negati ve negati ve Not Available [address] [place], [address] 07/27/2024 17:58:08 07/27/20 24 07/27/2024 URINA LYSIS blood Negati ve negati ve Not Available [address] [place], [address] 07/27/2024 17:58:08 07/27/20 24 07/27/2024 BASIC METAB OLIC PANEL calcium 9.1 mg/dL 8.5-10 .1 normal Not Available [address] [place], [address] 07/27/2024 17:59:09 07/27/20 24 07/27/2024 BASIC METAB OLIC PANEL glucose 114 mg/dL 74-106 high Not Available Marilin oliver [address] [place], [address] 07/27/2024 17:59:09 07/27/20 24 07/27/2024 BASIC METAB OLIC PANEL BUN 26 mg/dL 7-18 high Not Available Marilin oliver [address] [place], [address] 07/27/2024 17:59:09 07/27/20 24 07/27/2024 BASIC METAB OLIC PANEL creatinine 1.7 mg/dL 0.55-1 .02 high Not Available [address] [place], [address] 07/27/2024 17:59:09 07/27/20 24 07/27/2024 BASIC METAB [...] young er-ag ed adult s. Not Available [address], [address] 07/27/2024 17:59:09 07/27/20 24 07/27/2024 BASIC METAB OLIC PANEL sodium 143 mmol/ L 136-14 5 normal Not Available [address], [address] 07/27/2024 17:59:09 07/27/20 24 07/27/2024 BASIC METAB OLIC PANEL potassium 3.6 mmol/ L 3.5-5. 1 normal Not Available [address], [address] 07/27/2024 17:59:09 07/27/20 24 07/27/2024 BASIC METAB OLIC PANEL chloride 109 mmol/ L 98-107 high Not Available [address], [address] 07/27/2024 17:59:09 07/27/20 24 07/27/2024 BASIC METAB OLIC PANEL CO2 24.0 mmol/ L 21.0-3 2.0 normal Not Available [address] [place], [address] 07/27/2024 17:59:09 07/27/20 24 07/27/2024 BASIC METAB OLIC PANEL anion gap 10.0 mmol/ L 3-11 normal Not Available [address] [place], [address] 07/27/2024 17:59:09 07/27/20 24 07/27/2024 MAGNE SIUM magnesium 1.9 mg/dL 1.8-2. 4 normal Not Available [address] [place], [address] 07/27/2024 17:59:10 08/27/20 24 08/27/2024 BASIC METAB OLIC PANEL calcium 9.4 mg/dL 8.5-10 .1 normal Not Available [facility] ([facility]) [address] [place] [address] [place], [address], 08/27/2024 17:39:44 08/27/20 24 08/27/2024 BASIC METAB OLIC PANEL glucose 167 mg/dL 74-106 high Not Available [facility] ([facility]) [address] [place] [address] [place], [address], 08/27/2024 17:39:44 08/27/20 24 08/27/2024 BASIC METAB OLIC PANEL BUN 40 mg/dL 7-18 high Not Available [facility] ([facility]) [address] [place] [address] [place], [address], 08/27/2024 17:39:44 08/27/20 24 08/27/2024 BASIC METAB OLIC PANEL creatinine 1.5 mg/dL 0.55-1 .02 high Not Available [facility] ([facility]) [address] [place] [address] [place], [address], 08/27/2024 17:39:44 08/27/20 24 08/27/2024 BASIC METAB [...] young er-ag ed adult s. Not Available [facility] ([facility]) [address] [place] [address] [place], [address], 08/27/2024 17:39:44 08/27/20 24 08/27/2024 BASIC METAB OLIC PANEL sodium 143 mmol/ L 136-14 5 normal Not Available [facility]) [address] [place] [address] [place], [address], 08/27/2024 17:39:44 08/27/20 24 08/27/2024 BASIC METAB OLIC PANEL potassium 4.0 mmol/ L 3.5-5. 1 normal Not Available [facility] ([facility]) [address] [place] [address] [place], [address], 08/27/2024 17:39:44 08/27/20 24 08/27/2024 BASIC METAB OLIC PANEL chloride 106 mmol/ L 98-107 normal Not Available [facility]) [address] [place] [address] [place], [address], 08/27/2024 17:39:44 08/27/20 24 08/27/2024 BASIC METAB OLIC PANEL CO2 24.7 mmol/ L 21.0-3 2.0 normal Not Available [facility]) [address] [place] [address] [place], [address], 08/27/2024 17:39:44 08/27/20 24 08/27/2024 BASIC METAB OLIC PANEL anion gap 12.3 mmol/ L 3-11 high Not Available [facility]) [address] [place] [address] [place], [address], 08/27/2024 17:39:44 09/24/19 25 09/25/2024 URINE CULTU RE urine culture Urine Cultu re ACTIO N ID AND SUSCE PTIBI LITY TO FOLLO W APPEA DEBBIE Gram Negat jr Eugene APPEA DEBBIE Mixed Gram Posit jr Haylee COLON Y COUNT Not Available [address] [facility] [place], [address] 09/25/2024 12:33:58 09/24/19 25 09/25/2024 URINE CULTU RE urine culture colon ies/m L >100, 000 COLON Y COUNT <10,0 00 Day 1 Resul t ISOLA RAISA BELOW O:GNR (ORGA NISM ID: 1.1) - Gram negat jr eugene Urine Cultu re (ORGA NISM ID: 1.1) - COLON Y COUNT (ORGA NISM ID: 1.1) - >100, 000 Not Available [address] [place], [address] 09/25/2024 12:33:58 09/24/19 25 09/26/2024 URINE CULTU RE urine culture Urine Cultu re ACTIO N ID AND SUSCE PTIBI LITY TO FOLLO W ACTIO N ID AND SUSCE PTIBI LITY TO FOLLO W APPEA DEBBIE Gram Negat jr Eugene APPEA DEBBIE Mixed Gram Posit jr Haylee APPEA DEBBIE Gram Negat jr Eugene COLON Y COUNT Not Available [address] [place], [address] 09/26/2024 07:55:46 09/24/19 25 09/26/2024 URINE CULTU [...] 10,00 0 - 50,00 0 Not Available [address] [place], [address] 09/26/2024 07:55:46 09/24/19 25 09/27/2024 URINE CULTU [...] jr Haylee COLON Y COUNT Not Available [address] [place], [address] 09/27/2024 08:54:00 09/24/19 25 09/27/2024 URINE CULTU [...] zobac tarango I 64 F Not Available [address] [place], [address] 09/27/2024 08:54:00 10/01/19 25 10/01/2024 COMPL ETE BLOOD COUNT W/DIF F WBC 11.42 10_3/ uL 4.4-10 .8 high Not Available [address] [place], [address] 10/01/2024 19:25:40 10/01/19 25 10/01/2024 COMPL ETE BLOOD COUNT W/DIF F RBC 3.61 10_6/ uL 3.93-5 .22 low Not Available [address] [place], [address] 10/01/2024 19:25:40 10/01/19 25 10/01/2024 COMPL ETE BLOOD COUNT W/DIF F HGB 10.9 g/dL 11.2-1 5.7 low Not Available [address] [place], [address] 10/01/2024 19:25:40 10/01/19 25 10/01/2024 COMPL ETE BLOOD COUNT W/DIF F HCT 32.1 % 36.0-4 6.0 low Not Available [address] [place], [address] 10/01/2024 19:25:40 10/01/19 25 10/01/2024 COMPL ETE BLOOD COUNT W/DIF F MCV 89 fL 80-95 normal Not Available [address] [place], [address] 10/01/2024 19:25:40 10/01/19 25 10/01/2024 COMPL ETE BLOOD COUNT W/DIF F MCH 30.2 pg 27.0-3 3.0 normal Not Available [address] [place], [address] 10/01/2024 19:25:40 10/01/19 25 10/01/2024 COMPL ETE BLOOD COUNT W/DIF F MCHC 34.0 % 32.0-3 6.0 normal Not Available [address] [place], [address] 10/01/2024 19:25:40 10/01/19 25 10/01/2024 COMPL ETE BLOOD COUNT W/DIF F RDW 12.2 % 11.7-1 4.6 normal Not Available [address] [place], [address] 10/01/2024 19:25:40 10/01/19 25 10/01/2024 COMPL ETE BLOOD COUNT W/DIF F platelet count 284 10_3/ uL 130-40 0 normal Not Available [address] [place], [address] 10/01/2024 19:25:40 10/01/19 25 10/01/2024 COMPL ETE BLOOD COUNT W/DIF F MPV 11.4 fL 8.0-11 .0 high Not Available [address] [facility] [place], [address] 10/01/2024 19:25:40 10/01/19 25 10/01/2024 COMPL ETE BLOOD COUNT W/DIF F neutrophils % 67.6 % Not Available [address] [facility] [place], [address] 10/01/2024 19:25:40 10/01/19 25 10/01/2024 COMPL ETE BLOOD COUNT W/DIF F lymphocytes % 23.7 % Not Available [address] [facility] [place], [address] 10/01/2024 19:25:40 10/01/19 25 10/01/2024 COMPL ETE BLOOD COUNT W/DIF F monocytes % 6.4 % Not Available [address] [place], [address] 10/01/2024 19:25:40 10/01/19 25 10/01/2024 COMPL ETE BLOOD COUNT W/DIF F eosinophils % 1.3 % Not Available [address] [facility] [place], [address] 10/01/2024 19:25:40 10/01/19 25 10/01/2024 COMPL ETE BLOOD COUNT W/DIF F basophils % 0.4 % Not Available [address] [facility] [place], [address] 10/01/2024 19:25:40 10/01/19 25 10/01/2024 COMPL ETE BLOOD COUNT W/DIF F immature grans % 0.6 % Not Available [address] [facility] [place], [address] 10/01/2024 19:25:40 10/01/19 25 10/01/2024 COMPL ETE BLOOD COUNT W/DIF F nucleated RBC 0.0 % 0.0-0. 3 normal Not Available [address] [facility] [place], [address] 10/01/2024 19:25:40 10/01/19 25 10/01/2024 COMPL ETE BLOOD COUNT W/DIF F absolute neutrophil count 7.72 10_3/ uL 1.2-6. 7 high Not Available [address] [place], [address] 10/01/2024 19:25:40 10/01/19 25 10/01/2024 COMPL ETE BLOOD COUNT W/DIF F absolute lymphocyte count 2.71 10_3/ uL 1.2-3. 4 normal Not Available [address] [place], [address] 10/01/2024 19:25:40 10/01/19 25 10/01/2024 COMPL ETE BLOOD COUNT W/DIF F absolute monocyte count 0.73 10_3/ uL 0.1-0. 8 normal Not Available [address] [place], [address] 10/01/2024 19:25:40 10/01/19 25 10/01/2024 COMPL ETE BLOOD COUNT W/DIF F absolute eosinophil count 0.15 10_3/ uL 0.0-0. 7 normal Not Available [address] [place], [address] 10/01/2024 19:25:40 10/01/19 25 10/01/2024 COMPL ETE BLOOD COUNT W/DIF F absolute basophil count 0.05 10_3/ uL 0.0-0. 2 normal Not Available [address] [place], [address] 10/01/2024 19:25:40 10/01/1910/01/2024 COMPR EHENS JR METAB OLIC PANEL calcium 9.8 mg/dL 8.5-10 .1 normal Not Available [address] [place], [address] 10/01/2024 19:40:41 10/01/19 25 10/01/2024 COMPR EHENS JR METAB OLIC PANEL glucose 111 mg/dL 74-106 high Not Available Mar[facility] [address] [place], [address] 10/01/2024 19:40:41 10/01/19 25 10/01/2024 COMPR EHENS JR METAB OLIC PANEL BUN 36 mg/dL 7-18 high Not Available Marilin oliver [address] [place], [address] 10/01/2024 19:40:41 10/01/19 25 10/01/2024 COMPR EHENS JR METAB OLIC PANEL creatinine 1.6 mg/dL 0.55-1 .02 high Not Available [address] [place], [address] 10/01/2024 19:40:41 10/01/19 25 10/01/2024 COMPR EHENS JR METAB OLIC PANEL estimated GFR 33.63 mL/min /1.73M 2 The eGFR is calcu [...] young er-ag ed adult s. Not Available [address] [place], [address] 10/01/2024 19:40:41 10/01/19 25 10/01/2024 COMPR EHENS JR METAB OLIC PANEL total protein 6.9 g/dL 6.4-8. 2 normal Not Available [address] [place], [address] 10/01/2024 19:40:41 10/01/19 25 10/01/2024 COMPR EHENS JR METAB OLIC PANEL albumin 4.2 g/dL 3.4-5. 0 normal Not Available [address] [place], [address] 10/01/2024 19:40:41 10/01/19 25 10/01/2024 COMPR EHENS JR METAB OLIC PANEL bilirubin, total 0.38 mg/dL 0.2-1. 0 normal Not Available [address] [place], [address] 10/01/2024 19:40:41 10/01/19 25 10/01/2024 COMPR EHENS JR METAB OLIC PANEL alk phos 115 U/L 46-116 normal Not Available [address] [place], [address] 10/01/2024 19:40:41 10/01/19 25 10/01/2024 COMPR EHENS JR METAB OLIC PANEL sodium 140 mmol/ L 136-14 5 normal Not Available [address], [address] 10/01/2024 19:40:41 10/01/19 25 10/01/2024 COMPR EHENS JR METAB OLIC PANEL potassium 4.3 mmol/ L 3.5-5. 1 normal Not Available [address], [address] 10/01/2024 19:40:41 10/01/19 25 10/01/2024 COMPR EHENS JR METAB OLIC PANEL chloride 107 mmol/ L 98-107 normal Not Available [address], [address] 10/01/2024 19:40:41 10/01/19 25 10/01/2024 COMPR EHENS JR METAB OLIC PANEL CO2 25.6 mmol/ L 21.0-3 2.0 normal Not Available [address], [address] 10/01/2024 19:40:41 10/01/19 25 10/01/2024 COMPR EHENS JR METAB OLIC PANEL anion gap 7.4 mmol/ L 3-11 normal Not Available [address] [place], [address] 10/01/2024 19:40:41 10/01/19 25 10/01/2024 COMPR EHENS JR METAB OLIC PANEL AST 16 U/L 15-37 normal Not Available [address] [place], [address] 10/01/2024 19:40:41 10/01/19 25 10/01/2024 COMPR EHENS JR METAB OLIC PANEL ALT 22 U/L 14-59 normal Not Available Marilin [address] [place], [address] 10/01/2024 19:40:41 10/01/19 25 10/01/2024 TSH TSH 2.23 uIU/m L 0.36-3 .74 normal NOTE: Supra -phys iolog ic doses of Bioti n(B7) may cause false negat jr resul ts. Not Available [facility] (Registration ) [address] [place] [address] [place], [address], 10/01/2024 19:40:42 10/01/19 25 10/01/2024 FREE T4 free T4 1.12 NG/dL 0.76-1 .46 normal Not Available [facility] (Registration ) [address] [place] [address] [place], [address], 10/01/2024 19:40:42 10/11/19 25 10/12/2024 MICRO SCOPI C FINDI NGS WBC 0-2 hpf 0-5 Not Available Marilin [address] [place], [address] 10/12/2024 11:10:47 10/11/19 25 10/12/2024 MICRO SCOPI C FINDI NGS RBC 0-2 hpf 0-2 Not Available [facility] [address] [place], [address] 10/12/2024 11:10:47 10/11/19 25 10/12/2024 MICRO SCOPI C FINDI NGS epithelial cells Rare hpf negati ve Not Available [address] [place], [address] 10/12/2024 11:10:47 10/11/19 25 10/12/2024 MICRO SCOPI C FINDI NGS other cells Rare Transi tional negati ve Not Available [address] [place], [address] 10/12/2024 11:10:47 10/11/19 25 10/12/2024 MICRO SCOPI C FINDI NGS bacteria Rare hpf negati ve Not Available [address] [place], [address] 10/12/2024 11:10:47 10/11/19 25 10/12/2024 MICRO SCOPI C FINDI NGS crystals Negati ve hpf negati ve Not Available [address], [address] 10/12/2024 11:10:47 10/11/19 25 10/12/2024 MICRO SCOPI C FINDI NGS mucus Negati ve negati ve Not Available [address], [address] 10/12/2024 11:10:47 10/11/19 25 10/12/2024 MICRO SCOPI C FINDI NGS C S indicated? C S Done As Ordere d Not Available [address], [address] 10/12/2024 11:10:47 10/11/19 25 10/13/2024 URINE CULTU RE urine culture Urine Cultu re APPEA DEBBIE Mixed Gram Posit jr Haylee COLON Y COUNT Not Available [address] [place], [address] 10/13/2024 08:01:15 10/11/19 25 10/13/2024 URINE CULTU RE urine culture colon ies/m L <10,0 00 Day 1 Resul t ISOLA RAISA BELOW O:GPF M (ORGA NISM ID: 1.1) - Gram posit jr haylee , mixed Urine Cultu re (ORGA NISM ID: 1.1) - COLON Y COUNT (ORGA NISM ID: 1.1) - <10,0 00 Not Available [address] [place], [address] 10/13/2024 08:01:15 10/11/19 25 10/14/2024 URINE CULTU RE urine culture Urine Cultu re APPEA DEBBIE Mixed Gram Posit jr Haylee APPEA DEBBIE Mixed Gram Posit jr Haylee COLON Y COUNT Not Available [address] [place] [place], [address] 10/14/2024 07:58:33 10/11/19 25 10/14/2024 URINE CULTU RE urine culture colon ies/m L <10,0 00 COLON Y COUNT <10,0 00 Day 1 Resul t ISOLA RAISA BELOW Day 2 Resul t ISOLA RAISA BELOW O:GPF M (ORGA NISM ID: 1.1) - Gram posit jr haylee , mixed Urine Cultu re (ORGA NISM ID: 1.1) - COLON Y COUNT (ORGA NISM ID: 1.1) - <10,0 00 Not Available [facility] [address] [place], [address] 10/14/2024 07:58:33 03/02/20 24 03/02/2024 MRI imagi ng repor t Patien t Name: Martha Payton Unit #: [id number] Loc: DI Orderi ng Provid er: Yulissa Lainez Accoun t #: [id number] Status : REG CLI Primar y [...] occlus ion or signif icant stenos is. Brown Sourer ior Cerebr al Arteri es: Right: No aneury sm, occlus ion or signif icant stenos is. Left: No aneury sm, occlus ion or signif icant stenos is. The left abattoir supervisor ior cerebr al artery arises from the left abattoir supervisor ior commun icatin g artery which is [...] at the addres s above. Thank- you. [facility] [address] [place], [address] 03/03/2024 18:56:46 03/02/20 24 03/02/2024 MRI imagi ng repor t Patien t Name: Martha Payton Unit #: [id number] Loc: DI Orderi ng Provid er: Yulissa Lainez Accoun t #: [id number] Status : REG CLI Primar y [...] occlus ion or signif icant stenos is. Mortgage Processor al Caroti d: Right: No eviden ce of occlus ion or signif icant stenos is. Left: No eviden ce of occlus ion or signif icant stenos is. Car Runner al Caroti d: Right: No dissec tion, [...] Dictat ed By: Satinder Odonnell M.D. 1404 1404 Transc ribed By: Satinder Odonnell 1404 This is privil eged, confid ential inform ation intend ed only for the provid er named. Any use or distri bution by any person other than this provid er is strict ly prohib ited. If you receiv e this report in error, please notify us immedi ately at [phone] and return the origin al report to us at the addres s above. Thank- you. [email or web address] [facility] [address], [place], [address] 03/03/2024 18:56:46 03/09/20 24 03/09/2024 ultra sound imagi ng repor t Obdulia wilde Name: Martha Payton Unit #: [id number] Loc: DI Orderi ng Provid er: Yulissa Lainez Accoun t #: [id number] Status : REG CLI Primar y Care Provid er: FatouTianlacy schafer Date of Exam: 02/20 05/15 Sex: F Admiss ion Date: : 1949 Age: 73 ------ ------ --- APPROV ED REPORT ------ ------ -- EXAM: Compre hensiv e 2D, Dopple r, and color- flow Echoca rdiogr am Georgettekatie wilde Locati on: Out-Pa tient Sonogr apher: Arlene [...] 19.9 mmHg RVSP (TR) 22.9 mmHg Ordere melissa By: Yulissa Lainez CC: ------ ------ ------ ------ ------ ------ ------ ------ ------ ------ ------ ------ - Dictat ed By: Jada Mondragon M.D. 1402 1417 Transc ribed By: Jada Mondraogn MD 1402 This is privil eged, confid ential inform ation intend ed only for the provid er named. Any use or distri bution by any person other than this [facility] er is strict ly prohib ited. If you receiv e this report in error, please notify us immedi michellely at [phone] and return the origin al report to us at the addres s above. Thank- you. [facility] [address] [place], [address] 03/15/2024 11:38:17 03/09/20 24 03/09/2024 CT imagi ng ofelia t Obdulia t Name: Martah Payton Unit #: [id number] Loc: DI Ordermariola barrios Provid er: Yulissa Lainez Accoun t #: [id number] Status : REG CLI Primar y Care Provid er: Yluissa Lainez Date of Exam: 02/20 05/15 Sex: [...] at the addres s above. Thank- you. [email or web address] [facility] [address], [place], [address] 03/15/2024 11:38:18 06/12/20 24 06/12/2024 x-ray imagi ng repor t Patikatie t Name: Martha Payton Unit #: [id number] Loc: ER Orderi ng Provid er: Lacho Correa M.D. Accoun t #: [id number] Status : REG ER Primar y [...] error, please notify us immedi ately at [phone] and return the origin al report to us at the addres s above. Thank- you. INTERFACE [facility] [address], [place], [address] 06/12/2024 18:34:32 06/12/20 24 06/12/2024 x-ray imagi ng repor t Patikatie t Name: Martha Payton Unit #: [id number] Loc: ER Orderi ng Provid er: Lacho Correa M.D. Accoun t #: [id number] Status : REG ER Primar y Care Provid er: FatouYulisas banegas hanh Date of Exam: 05/24 10/15 Sex: [...] error, please notify us immedi ately at [phone] and return the origin al report to us at the addres s above. Thank- you. INTERFACE [facility] [address] [place] [place], [address] 06/12/2024 18:34:33 06/12/20 24 06/12/2024 CT imagi ng repor t Patien t Name: Martha Payton Unit #: [id number] Loc: ER Orderi ng Provid er: Lacho Correa M.D. Accoun t #: [id number] Status : REG ER Primar y [...] the addres s above. Thank- you. INTERFACE [facility] [address], [place], [address] 06/12/2024 18:43:33 06/12/20 24 06/12/2024 vrad ofelia wilde Name: Martha Payton Unit #: [id number] Loc: ER Orderi ng Provid er: Accoun t #: [id number] Status : REG ER Primar y [...] FINDIN GS: ANTERI OR CIRCUL ATION: Right general internal medicine physician al caroti d artery : Calcif ied plaque with severe stenos is cavern ous right ICA. Right middle cerebr al artery : Modera te to severe stenos is abattoir supervisor ior M3 branch right MCA. No signif icant stenos is remain lien of the right MCA. Right anteri or cerebr al artery : No occlus ion or signif icant stenos is. No aneury sm. Left general internal medicine physician al caroti d artery : Calcif ied plaque with modera te stenos is cavern ous left ICA. Left middle cerebr al artery : No occlus ion or signif icant stenos is. No aneury sm. Left anteri or cerebr al artery : No occlus ion or signif icant stenos is. No aneury sm. INSPECTOR ELECTROMECHANICAL IOR CIRCUL ATION: Right verteb ral artery : No occlus ion or signif icant stenos is. No aneury sm. Left verteb ral artery : No occlus ion or signif icant stenos is. No aneury sm. Basila r artery : No occlus ion or signif icant stenos is. No aneury sm. Right abattoir supervisor ior cerebr al artery : No occlus ion or signif icant stenos is. No aneury sm. Left abattoir supervisor ior cerebr al artery : No occlus ion or signif icant stenos is. No aneury sm. HEAD: Brain: Stable right abattoir supervisor ior fronta l and pariet al infarc [...] rkable . IMPRES BASIL: 1. Stable right abattoir supervisor ior fronta l and pariet al infarc t. 2. 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 3. Calcif ied plaque with modera te stenos is cavern ous left ICA. 4. Modera te to severe stenos is abattoir supervisor ior M3 branch right MCA. ASSESS MENT: [...] No dissec tion or occlus ion. Right general internal medicine physician al caroti d artery : No stenos is of the extrac ranial segmen t. No dissec tion or occlus ion. Right accounts receivable accountant al caroti d artery : No occlus ion or stenos is of the origin . Left common caroti d artery : No stenos is. No dissec tion or occlus ion. Left general internal medicine physician al caroti d artery : No stenos is of the extrac ranial segmen t. No dissec tion or occlus ion. Left accounts receivable accountant al caroti d artery : No occlus [...] the cervic al segmen t of the general internal medicine physician al caroti d artery is based on NASCET criter ia. Normal is no stenos is. Mild is less than 50% stenos is. Modera te is 50-69% stenos is. Severe is 70% to 99% stenos is. Total occlus ion is no detect able patent lumen. Dictat ed and Daphnie sanchez d by: Abelardo Nagel MD. Thania barrios:P.D ISST Shelby pina MD Access ion#=[id number] Gin torres By: CC: ------ ------ [...] at the addres s above. Thank- you. [email or web address] [facility] [address] [place], [address] 06/15/2024 15:45:36 06/13/2006/13/2024 vrad ofelia t Obdulia t Name: Rafaelaandriy carnesMarthanguyen Carnes Unit #: [id number] Loc: MS Thania barrios Provid er: Accoun t #: [id number] Status : ADM IN Primar y Care [facility] er: Yulissa Lainez Date of Exam: [...] MD. Orderi ng:Peyton Zhou MD Access ion#=[id number] Ordere d By: CC: ------ ------ [...] error, please notify us immedi ately at [phone] and return the origin al report to us at the addres s above. Thank- you. [email or web address] [facility] [address] [place], [address] 06/15/2024 15:45:36 06/13/20 24 06/13/2024 CT imagi ng repor t Patien t Name: Martha Payton Unit #: [id number] Loc: Orderi ng Provid er: Lacho Correa M.D. Accoun t #: [id number] Status : ADM IN Primar y Care Provid er: FatouYulissa banegas hanh Date of Exam: 05/24 10/15 Sex: [...] right side there is calcif ied plaque abattoir supervisor iorly at the caroti d bulb-b ifurca tion level and there is also calcif ied plaque on the medial and abattoir supervisor ior saldaña of the proxim al right ICA. Amount of stenos is at this level is estima liz at approx imatel y 40 percen t in the proxim al right ICA. The right ICA is nicely patent in the upper neck. Left caroti d bulb exhibi ts some calcif ied plaque anteri sherry. There is calcif ied plaque on the abattoir supervisor ior wall the proxim al left ICA. Approx imatel y 30 percen t stenos is at this level. There is also self like plaque at the origin left ICA with more promin ent stenos is at this level, approx imatel y 70 percen t. Left ICA in the upper neck is patent . Brown Sourer ior circul ation: Both verteb ral arteri [...] Brain W: Anteri or circul ation: Both general internal medicine physician al caroti d arteri es are patent in the skull base-c arotid canals . Both intra cavern ous general internal medicine physician al caroti d arteri es are periph erally calcif ied. There is a signif icant focal stenos is at the juncti on of the intra cavern ous and suprac linoid aspect of the right general internal medicine physician al caroti d artery with approx imatel [...] or commun icatin g artery . Left abattoir supervisor ior cerebr al artery is patent withou t signif icant stenos is. There is mild-m oderat e narrow ing in the proxim al right middle cerebr al artery . No intral uminal thromb us seen. No aneury sms. No dissec tion flaps. Brown Sourer ior circul ation: The basila r artery ascend s in the midlin e. Distal ly it gives off patent right abattoir supervisor ior cerebr al artery althou gh there is a modera te stenos is in the abattoir supervisor ior cerebr al artery a few cm distal to its origin . The left abattoir supervisor ior cerebr al artery is predom inantl y fed by a abattoir supervisor ior commun icatin g artery on the left side of the [place]. This that There is no eviden ce of aneury sm at the tip of the basila r artery nor elsewh ere in the [place]. CT BRAIN: Again noted is [...] error, please notify us immedi ately at [phone] and return the origin al report to us at the addres s above. Thank- you. INTERFACE [facility] [address] [place], [address] 06/13/2024 15:50:13 06/13/20 24 06/13/2024 CT imagi ng repor t Patien t Name: Martha Payton Unit #: [id number] Loc: Ordermariola ng Provid er: Sanjana unger,Da vid Accoun t #: [id number] Status : ADM IN Primar [...] from yester day. Other visual ized parana hcino sinuse s are clear. RADIAT ION DOSE [...] the addres s above. Thank- you. INTERFACE [facility] [address] [place], [address] 06/13/2024 16:16:16 06/14/20 24 06/14/2024 MRI imagi ng repor t Patikatie t Name: Martha Payton Unit #: [id number] Loc: MS Orderi ng Provid er: Sanjana unger,Da vid Accoun t #: [id number] Status : ADM IN Primar [...] error, please notify us immedi ately at [phone] and return the origin al report to us at the addres s above. Thank- you. INTERFACE [facility] [address] [place], [address] 06/14/2024 12:37:22 06/14/20 24 06/14/2024 ultra sound imagi ng repor t Patien t Name: Martha Payton Unit #: [id number] Loc: Ordermariola ng Provid er: Jabari Bustamante Accoun t #: [id number] Status : ADM IN Primar [...] the addres s above. Thank- you. INTERFACE [facility] [address], [place], [address] 06/14/2024 15:22:54 07/16/20 24 07/16/2024 CT imagi ng repor t Patien t Name: Martha Payton Unit #: [id number] Loc: ER Orderi ng Provid er: Stephania Hagan t #: [id number] Status : REG ER Primar y [...] DLP = 0.00 mGy-cm Ordere d By: Stephnaia Hagan CC: ------ ------ ------ ------ ------ [...] error, please notify us immedi ately at [phone] and return the origin al report to us at the addres s above. Thank- you. INTERFACE [facility] [address], [place], [address] 07/16/2024 14:51:01 07/16/2007/16/2024 x-ray imagi ng repor t Patien t Name: Martha Payton Unit #: [id number] Loc: ER Orderi ng Provid er: Stephania Hagan Accoun t #: [id number] Status : REG ER Primar y [...] the addres s above. Thank- you. INTERFACE [facility] [address] [place], [address] 07/16/2024 14:58:08 07/16/2007/16/2024 CT imagi ng repor t Patien t Name: Martha Payton Unit #: [id number] Loc: ER Orderi ng Provid er: Stephania Hagan Accoun t #: [id number] Status : REG ER Primar y [...] error, please notify us immedi ately at [phone] and return the origin al report to us at the addres s above. Thank- you. INTERFACE [facility] [address], [place], [address] 07/16/2024 17:29:32 Result Notes None recorded. Problems Name Problem SNOMED Code Status Onset Date Resolution Date Notes Provider Name and Address Organization Details Recorded Time Diarrhea 84560558 Active [address], [place], [address], [facility]. 4 18:06:27 Poor short-term memory 356785034 Active [address], [place], [address], [facility] 4 10:28:13 Essential hypertensi on 35673060 Active [address], [place], [address], [facility] 4 10:29:23 Blood glucose outside reference range 671403781 Active [address], [place], [address], [facility] 4 10:30:43 Iritis 72817527 Active [address], [place], [address], [facility] 4 10:31:43 Tobacco dependence caused by cigarettes 077411508404 83569 Active [address], [place], [address], [facility] 4 12:23:42 Adjustment disorder with depressed mood 59851331 Active [address], [place], [address], [facility] 4 12:26:28 Prediabete s 560833423 Active 2023 5.7% on [address], [place], [address], [facility] 4 07:52:17 History of coronary artery bypass grafting 099894044 Active 2009 In 2010 per prior med recs [address], [place], [address], [facility] 4 14:53:13 Unexplaine d weight loss 721049862 Active [address], [place], [address], [facility] 13:43:55 Chronic cough 61213002 Active [address], [place], [address], [facility] 13:44:00 Pain of left shoulder joint 716219734019 58381 Active [address], [place], [address], [facility] 13:44:16 Hyperlipid emia 56304876 Active [address], [place], [address], [facility] 13:48:11 Chronic obstructiv e pulmonary disease 52414086 Active [address], [place], [address], [facility] 13:49:36 Lacunar infarction 332669650 Active [address], [place], [address], [facility] 18:17:27 Bradycardi a 71624340 Active [address], [place], [address], [facility] 18:36:12 Chronic kidney disease stage 3B 263431783 Active 2023 NOted in 1 Note in prior MR as stage 3 D/T HTN. Plan to control BP as care plan. 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 991837111 Active [address], [place], [address], [facility] 08:09:53 Hypokalemi a 14700492 Active [address], [place], [address], [facility] 4 08:10:59 Sundowning 089961887 Active [address], [place], [address], [facility] 4 08:12:54 Loose stool 743395704 Active [address], [place], [address], [facility] 09:45:26 Unsteady when walking 23616341 Active [address], [place], [address], [facility] 4 10:02:59 Decreased diastolic arterial pressure 82845960 Active [address], [place], [address], [facility] 4 10:04:18 Acute gastrointe stinal hemorrhage 82548617 Active [address], [place], [address], [facility] 06:49:56 Cerebral infarction 435243900 Active [address], [place], [address], [facility] 06:50:08 Acute urinary tract infection 419035717 Active [address], [place], [address], [facility] 06:52:30 Hypernatre sanaz 324452364 Active [address], [place], [address], [facility] 06:55:39 Problem Notes None recorded. Procedures Surgical History None recorded. Imaging Results Imaging Date Name Status LastModified by Organiz ation Details LastModified Time 03/02/2024 MRI imaging report completed [email or web address] [facility] [address] [place] [address] , [place], [address] 03/03/2024 18:56:46 03/02/2024 MRI imaging report completed [email or web address] [address] [place], [address] 03/03/2024 18:56:46 03/09/2024 ultrasound imaging report completed [email or web address] [place] [address] [place], [address] 03/15/2024 11:38:17 03/09/2024 CT imaging report completed [email or web address] [place] [address] [place], [address] 03/15/2024 11:38:18 06/12/2024 x-ray imaging report completed INTERFACE [address] [place], [address] 06/12/2024 18:34:32 06/12/2024 x-ray imaging report completed INTERFACE [address] [place], [address] 06/12/2024 18:34:33 06/12/2024 CT imaging report completed INTERFACE [address] [place], [address] 06/12/2024 18:43:33 06/12/2024 vrad report completed [email or web address] [place], [address] 06/15/2024 15:45:36 06/13/2024 vrad report completed [email or web address] [place], [address] 06/15/2024 15:45:36 06/13/2024 CT imaging report completed INTERFACE [address] [place], [address] 06/13/2024 15:50:13 06/13/2024 CT imaging report completed INTERFACE [address] [place], [address] 06/13/2024 16:16:16 06/14/2024 MRI imaging report completed INTERFACE [address], [address] 06/14/2024 12:37:22 06/14/2024 ultrasound imaging report completed INTERFACE [address], [address] 06/14/2024 15:22:54 07/16/2024 CT imaging report completed INTERFACE [address] [facility] [place], [address] 07/16/2024 14:51:01 07/16/2024 x-ray imaging report completed INTERFACE [address] [place], [address] 07/16/2024 14:58:08 07/16/2024 CT imaging report completed INTERFACE [address] [place], [address] 07/16/2024 17:29:32 Procedure Notes None recorded. Medical Equipment None Reported. Allergies Allergen ID Allergen Name Allergen Category Reaction Reaction Severity Criticality Documentation Date Start Date Code Code System Note Provider Name and Address Organization Details Recorded Time 25381 chlorthal idone medicatio n Not available Not available [facility] 01/28/2024 2409 RxNorm MAR[address], [place], [address], [facility] 17:56:24 82203 hydrochlo rothiazid e medicatio n Not available Not available [facility] 01/28/2024 5487 RxNorm MARIAM F[address], [place], [address] [place] [address] 17:56:38 Medications Name Sig Start Date Stop Date Status Note LastModified by Organization Details LastModified Time losartan 50 mg tablet Take 1 tablet every day by oral route as directed . 2024 active [facility] Not Available Not Available Not Available quetiapin e 25 mg tablet 1 tablet by mouth each night 2023 active Not Available Not Available Not Avai lable atorvasta tin 80 mg tablet Take 1 tablet every day by oral route at bedtime. 2023 active [facility] Not Available Not Available Not [...] route as directed . 2023 active per [employer] EMR Not Available Not Available Not Available sucralfat e 1 gram tablet 1 tab by mouth before meals and at night 2024 active Started by [facility] in setting of GI bleed 07/19/20 [...] in the AM.Incre ased to 10mg on 11-6 (take 2 tablets) Not Available Not Available Not Available aspirin 81 mg tablet,de layed release Take 1 tablet every day by oral route. 07/20 completed Pt, with acute hemorrag e and GI bleed at 07/13/20 [facility] hospital in setting of taking aspirin. Aspirin held at this time pending GI consult. Not Available Not Available Not Available amlodipin e 10 mg tablet Take 1 tablet every day by oral route. 2024 active Not Available Not Available Not Avai lable pantopraz ole 40 mg tablet,de layed release Take 1 tablet every day by oral route. 2023 active started by [facility] in setting of GI bleed 07/19/20 [...] route as directed . 10/01 completed Per [employer] EMR Not Available Not Available Not Available [...] Take 1 tablet by mouth once daily 2024 active Not Available Not Available Not Avai lable amoxicill in 01/27 completed Not Available Not Available Not Available quetiapin e 50 mg tablet Take 1 tablet every day by oral route at bedtime. active Not Available Not Available No t Available psyllium husk 0.4 gram capsule Take [...] Updated DateTime 4 147.32 cm 20.8 kg/m2 80862.0 8 g 97.7 [degF] 97 % 97 % 62 /min 130 mm[Hg] 72 mm[Hg] DEEDEE PITTMAN MA [facility] 4 11:29:51 Date Recorded Body [...] Updated DateTime 4 147.32 cm 20.5 kg/m2 79766.4 5 g 98.1 [degF] 99 % 99 % 62 /min 18 /min 195 mm[Hg] 63 mm[Hg] 211 mm[Hg] 102 mm[Hg] 210 mm[Hg] 75 mm[Hg] 199 mm[Hg] 66 mm[Hg] Keesha Zaragoza MA [facility] 4 21:02:19 Date Recorded Body height Body mass index (BMI) Body weight Body temperature Oxygen saturation Oxygen saturation in Arterial blood by Pulse oximetry Respiratory rate Heart rate Systolic blood pressure Diastolic blood pressure Provider Name and Address Organization Details Last Updated DateTime 4 147.32 cm 19.9 kg/m2 09951.9 9 g 98.6 [degF] 100 % 100 % 14 /min 70 /min 108 mm[Hg] 48 mm[Hg] SUKHDEV TORIBIO RN [facility] 4 09:38:14 Date Recorded Body height Body mass index (BMI) Body weight Body temperature Oxygen saturation Oxygen saturation in Arterial blood by Pulse oximetry Heart rate Systolic blood pressure Diastolic blood pressure Provider Name and Address Organization Details Last Updated DateTime 4 147.32 cm 20.4 kg/m2 03933.9 g 97.5 [degF] 97 % 97 % 52 /min 108 mm[Hg] 58 mm[Hg] DEEDEE PITTMAN MA [facility] 4 08:35:30 Date Recorded Body height Body mass index (BMI) Body weight Body temperature Oxygen saturation Oxygen saturation in Arterial blood by Pulse oximetry Heart rate Systolic blood pressure Diastolic blood pressure Provider Name and Address Organization Details Last Updated DateTime 5 147.32 cm 18.9 kg/m2 15783.4 7 g 98.6 [degF] 99 % 99 % 54 /min 142 mm[Hg] 86 mm[Hg] DEEDEE PITTMAN MA [facility] 5 14:27:28 Social History Question Answer Notes LastModified by Organizat ion Details LastModified Time Tobacco Smoking Status Current Every Day Smoker [place], [facility] 11/01/2023 11:33:08 Date Of Most Recent [...] And Wanted Help? (For Example, If You [place] Very Nervous, Lonely, Or Blue; Got Sick [...] Of Your Most Recent Tobacco Screening? 05/14/2024 [email or web address] Information not available 05/14/2024 How Much Tobacco Do You Smoke? 0.5 PPD [email or web address] Information not available 05/14/2024 Has Tobacco Cessation Counseling Been Provided? Yes Information not available 11/01/2023 On What Date Was Tobacco Cessation Counseling Provided? 05/14/2024 [email or web address] Information not available 05/14/2024 Do You Or [...] trivalent, PF 07/09/[address], [place], [address], [facility] 07/09/2024 11:46:08 COVID-19, mRNA, LNP-S, PF, angie-sucrose, 30 mcg/0.3 mL 07/09/[address], [place], [address], [facility] 07/09/2024 11:46:08 Tdap 07/09/2024 completed [address], [place], [address], [facility]. 07/09/2024 11:46:08 Past Encounters Encounter ID Performer Location Encounter Start Date Encounter Closed Date Diagnosis/Indication Diagnosis SNOMED-CT Code Diagnosis ICD10 Code Diagnosis Note [id number] VISHAL COOPER, APPLIANCE TESTER [address] [place] [address] 11/01/2023 11:23:08 11/01/2023 12:27:22 Pain of left shoulder region 9637863763 M25.512 Patient with a fall and fracture of L shoulder region 3 years ago in [facility] (unable to determine location of [...] discuss this issue at at that visit. [facility] current use of non-steroidal anti-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 1935941927 02618 Z79.1 Patient has been taking OTC Advil dual action, and reportedly takes ASA PRN for pain. She is unaware of any CKD, no history of recent bloodwork. Will check CMP today to ensure kidney function WNL, and call with results to guide if she can continue NSAIDs, or should instead use Tylenol only for pain relief. Elevated blood-pressure reading without diagnosis of hypertension 653156747 R03.0 Today, BP reading in office elevated. Patient denies any recent antihypert ensive medication s. She does have a history of triple bypass surgery, but not currently taking any antihypert ensives, statin, or ASA. Will need continued monitoring , likely initiation of antihypert ensive if BP readings continue to be elevated. Cough 31904449 R05.9 73 year old female presents due [...] hyperinfla tion or chronic changes, patient declined. 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 We will order requisite labs for workup, brain MRI, and refer to Neurology for formal assessment when results are received. History of coronary artery bypass grafting 646291258 Z95.1 We will start Metoprolol and Atorvastat in today, as well as 81 mg of aspirin. If no records reveal any recent cardiology f/u, then consider fresh cardiac echo at follow up. Essential hypertension 85268795 I10 Diabetes m ellitus screening 519620624 Z13.1 Hyperlipid emia screening 661937342 Z13.220 We will screen for current levels of lipids, assuming a past of cholestero l given smoking history and CABG x 3 Adjustment disorder with depressed mood 85501554 F43.21 Pt. agreeable to trial of Sertraline . Discussed option to move dosing to day or night depending on if it makes pt. sleepy or not. Tobacco de pendence caused by cigarettes 2228609901 6004686 F17.210 Pt. precontemp lative about quitting. I did recommend that she cut back as it is likely contributi ng to her memory loss. [id number] MARIAM FANG [facility] [address] [place] [address] 01/28/2024 12:55:09 01/28/2024 14:09:34 Unexplained weight loss 973624184 R63.4 Concerning for malignancy in pt. w/extensiv e smoking history and cough for 4-mos. Will send for CT of the chest. Chronic cough 66518093 R 05.3 Likely related to COPD and/or Allergy, but weight loss concerning in setting of long smoking history so we will order chest CT. Pain of le ft shoulder joint [id number] 3367951 M25.512 This has been ongoing for years per pt. report. While there is palpable difference , it doesn't affect her ROM or strength. She had minor pain on resisted IR. Hyperlipidemia 92536072 E78.5 Will check lipids. at f/u. Chronic ob structive pulmonary disease 13153934 J44.9 Pt. does not have an inhaler. Her prior medical records only showed up after last visit and show pt. had positive response with Ventolin as only inhaler so we will start here. Lacunar infarction 78279 8000 I63.81 Pt. has had no observable changes such as slurred speech, hemiparesi s, altered sensorium. We have started her on aspirin 81 mg since receiving the imaging results. She does continue to smoke. She does need additional large vessel imaging, cardiac monitoring and echocardio gram as well. Bradycardia 20688077 R00 .1 Pt. to return to office for EKG, lipid lab, [id number] MARIAM FANG [facility] [address] [place] [address] 03/29/2024 11:20:50 03/29/2024 12:12:54 Tobacco dependence caused by cigarettes [id number] 8952150 F17.210 Pt. with positive attitude about reducing smoking by 20 cigarettes and only at 1/2 pack/day. She will work with daughter in law to delay smoking by 15 minutes/da y till she desires to stop. Pulmonary emphysema 8743 3001 J43.9 As seen on 03/09/2024 CT scan. Continue Ventoline as needed. 97% on RA today. Lacunar infarction 14834 8000 I63.81 Pt. has had no observable changes such as slurred speech, hemiparesi s, altered sensorium. We have started her on aspirin 81 mg since receiving the imaging results. Cardiac US and vessel imaging complete w/out obvious cause. She is working on smoking cessation. Normal bod y mass index 46736300 Z68.20 Pt. concerned about weight, but she actually is a healthy weight, is eating regularly, had recently cut out soda since moving in with son/daught er in law. Reassuranc e provided to pt. and caregi sixto. Essential hypertension 03196680 I10 130/72 today in office. We will monitor. [id number] ISATU ZAMORA PA-C [address],Shaina [address] [place] [address] 05/14/2024 18:33:21 05/14/2024 21:16:51 Pyuria 0721327 R82.81 Patient has had some abnormal behaviors [...] okay to be monitored on outpatient basis. [id number] MARIAM FANG [facility] [address] [place] [address] 07/09/2024 09:29:21 07/09/2024 10:24:04 Right sided cerebral hemisphere cerebrovascular accident 344236450 I63.9 Subacute right occipital CVA, hypertensi on Ending course of PlavixCont inue on ASAHad Echo w/bubble study, US of Carotids showing stenosis, vascular consulted who did not rec'd surgery, but did say ASA for life. Hypokalemia 52147673 E87 .6 Will check stability of labs. Essential hypertension 06772616 I10 DIastolic low with some unsteadine ss in last couple days since quetiapine increase so we will go back to 25 mg of quetiapine . 533087651 F05 Discussed regulary wake/sleep time, keeping her from napping, can add trazodone. Reviewed sleep hygiene nformation and provided handout. Loose stool 702268970 R1 9.5 Will add bulking agent Unsteady when walking 22 269709 R26.89 Decreasing Quetiapine back to quetiapine , also low diastolic BP today likely caused by this. Donna will notify us if this isn't improving shortly. Decreased diastolic arterial pressure 84664464 R03.1 Very likely from the increase in quetiapine as she has also been a bit unsteady on her feet when standing up since dose increase, moving back to 25 mg. Donna will report if not resolved. Active or passive immunization 953497890 Z23 Tdap, Flu and Covid today. [id number] AMRIAM FANG [facility] [address] [place] [address] 07/20/2024 08:15:21 07/20/2024 09:24:16 Acute gastrointestinal hemorrhage 06902795 K92.2 Pt. was referred to General surgery for mgmt of acute GI bleed. Appt 07/26/2024. Donna reports stools still loose/dark . C-diff test at hospital was negative. Aspirin continues to be held. Cerebral infarction 4325 65477 I63.9 Had new hemorrage within area of old infarct. No mass effect at hospital prior to 07/19/2024 d/c. She was referred to [facility] for mgmt. No new neurologic al signs on exam today or witnessed at home. Acute urin fam tract infection 586625806 N39.0 Will finish course of Cefpodoxim e. Starting on probiotic. Hypernatremia 700191643 E87.0 Mild at 146 at ED. Will check level. [id number] MARIAM FANG [facility] [address] [place] [address] 10/01/2024 14:12:47 10/01/2024 16:45:17 Adult health examination 476268362 Z00.00 No concerns on exam findings today. Diarrhea ongoing problem so ordering studies as below. Pt. to forego routine mammogram studies. Diarrhea 33594981 R19.7 Still persisting . Controlled w/Loperimi de. Also, Donna did not roll picker Psyllium sent in June so guided to do that. Essential hypertension 21043886 I10 She is getting 12.5 mg of [...] (not dosing in PM due to pt. owning risk and would be afraid of increase risk of falls unsupervis ed).Contin ue with Metoprolol 12.5 BID for now, if need to raise double metoprolol next. Loose stool 719743406 R1 9.5 Added Psyllium back in June, Donna believes it was never picked up. Still using Loperimide . Will get stool studies to r/o infectious cause of this. Mammogram declined 20463 5004 Z53.20 Health Concerns Section Related Observation LastModified by Organization Detai ls LastModified Time None Recorded Concern Status LastModified by Organization Details LastModified Time None Recorded Advance Directives Directive None Recorded Payers Encounter Date Sequence Insurance Name Policy Number Policy Nicole Covered Member ID Nicole Member ID Guarantor Name 03/29/2024 2 [facility] (MEDICAID) Jennifer Archer [id number] Jennifer Archer 03/29/2024 1 [place] [employer] Jennifer Archer [id number] Jennifer Archer 05/14/2024 2 [facility] (MEDICAID) Jennifer Archer [id number] Jennifer Archer 05/14/2024 1 [place] [employer] Jennifer Archer [id number] Jennifer Archer 07/09/2024 2 [facility] (MEDICAID) Jennifer Archer [id number] Jennifer Archer 07/09/2024 1 [place] [employer] Jennifer Archer [id number] Jennifer Archer 07/20/2024 2 [facility] (MEDICAID) Jennifer Archer [id number] Jennifer Archer 07/20/2024 1 [place] [employer] Jennifer Archer [id number] Jennifer Archer 10/01/2024 2 [facility] (MEDICAID) Jennifer Archer [id number] Jennifer Archer 10/01/2024 1 [place] [employer] [employer] Jennifer Archer [id number] Jennifer Archer Notes Date Note Type [...] No malignancy. MARIAM FANG [address], [place], [address], [facility]. 03/29/2024 12:38:37 05/14/2024 text/html I received a [...] time. ISATU ZAMORA PA-C [address], [place], [address], [facility]. 05/15/2024 13:54:05 07/09/2024 text/html Pt, 74-F, here f or MARIAH after d/c from [facility] [...] pressure today. MARIAM FANG [address], [place], [address], [facility]. 07/09/2024 11:48:31 07/20/2024 text/html Pt. 74-F, w/joseph gale, here for transition of care follow up from 07/19/2024 [facility] where she was hospitalized for acute UTI, [facility] neuro-vascular had recommended medical management.The [...] her home health services. MAR[address] FANG [address], [place], [address], [facility]. 07/20/2024 09:53:21 10/01/2024 text/html Pt. 74-here for medicare annual wellness visit. MARIAM FANG [address], [place], [address], [facility] 10/05/2024 06:22:33 OBGyn Episode No OBEpisode recorded.
--- OUTSIDE RECORDS SUMMARY | 2024-11-04 18:30 | XMS_ITS | Continuity of Care Document ---
Author Organization [place] [facility], [facility] [place] [address] [place] [address] Care Team Providers Care Superintendent Job Name Role Phone RAMA LAINEZ Primary Care Provider Edvin HARLEY CHRONIC RECRUITMENT CONSULTANT Encyclopedia Research Worker GENOVEVA ATWOOD Neurologist [phone] Assessment Encounter Date Assessment Date Assessment LastModified by Organization Details LastModified Time 10/01/2024 10/01/2024 Patient presented to office today for their Medicare Annual Wellness Visit. Pt. w/adv directive on file. She has life expectancy less than 10 years with established stroke/cardiac history. Mammograms not indicated. DEXA: Had normal BMD scan 12/31/2017 with no density measurements even close to osteopenia range, so we will defer doing this again. Declines Shingles Vaccine. Pt. has Advanced Directive on File from 08/13/2024. [email or web address] Not available 10/05/2024 06:21:33 Plan of Treatment Reminders Order Date Submit Date Provider Last Modified By Organization Details Last Modified Time Details Appointments Follow Up 30 2024 02:30P M Eduardo Lainez Not available Not available Not available Lab O&P (ova & parasites ), stool 2024 025 [email or web address] [facility] (Lab Direct), [address] [place] [address] [place], [address], 11/03/2024 13:43:13 C diff toxin DNA, stool - 1 sst and 1 lav 2024 025 [email or web address] [facility] ([facility]), [address] [place] [address] [place], [address], 11/03/2024 13:43:13 CMP, serum or plasma 2024 025 [facility] (Registration ), [address] [place] [address] [place], [address], 10/01/2024 19:40:41 CBC w/ auto diff 2024 025 [facility] (Registration ), [address] [place] [address] [place], [address], 10/01/2024 19:25:40 TSH + free T4, serum 2024 025 [facility] (Registration ), [address] [place] [address] [place], [address], 10/11/2024 08:21:15 [email or web address] + cryptospo ridium Ag, stool [address] Laboratory ([facility] Direct), [address] [place] [address] [place], [address], 10/01/2024 17:21:31 gastroint estinal pathogens panel, culture, stool [email or web address] [facility] ([facility]), [address] [place] [address] [place], [address], 11/03/2024 13:43:13 Referral None recorded. Procedures None recorded. Surgeries None recorded. Imaging None recorded. Medication Orders psyllium husk 0.4 gram capsule 2024 025 [email or web address] [id number], [address] [place] [address], [id number], 10/01/2024 17:21:31 Patient TargetsNo targets recorded. Patient Instructions Encounter Date Encounter Id Patient Instructions Last Modified By Organization Details Last Modified Time 10/01/2024 [id number] Do a trial stopping of Atorvastatin for a few days and see if diarrhea resolves. I will send Psyllium Husk again so [facility] [place] Complete stool studies/submit sample if diarrhea doesn't resolve using the above measures. [email or web address] Not available 10/05/2024 06:22:29 Reason for Referral None Reported. Problems Name Problem SNOMED Code Status Onset Date Resolution Date Notes Provider Name and Address Organization Details Recorded Time Diarrhea 90855250 Active [address], [facility] [address], [facility] 4 18:06:27 Poor short-term memory 046374521 Active [address], [facility] [address] , [facility] 4 10:28:13 Essential hypertensi on 94078043 Active [address], [facility] [address] , [facility] 4 10:29:23 Blood glucose outside reference range 919847591 Active [address], [facility] [address], [facility] 4 10:30:43 Iritis 64231247 Active [address], [facility] [address] , [facility] 4 10:31:43 Tobacco dependence caused by cigarettes 880447996857 52271 Active [address], [facility] [address] , [facility] 4 12:23:42 Adjustment disorder with depressed mood 67018976 Active [address], [place], [address], [facility] 4 12:26:28 Prediabete s 046230559 Active 2023 5.7% on [address], [place], [address], [facility] 4 07:52:17 History of coronary artery bypass grafting 084718688 Active 2009 In 2010 per prior med recs MARIAM FANG Dr, [place], [address], [facility] 14:53:13 Unexplaine d weight loss 820768503 Active [address], [place], [address], [facility] 13:43:55 Chronic cough 92230647 Active [address], [place], [address] , [facility] 13:44:00 Pain of left shoulder joint 172375740977 88071 Active [address], [place], [address], [facility] 13:44:16 Hyperlipid emia 92051830 Active [address], [place], [address], [facility] 13:48:11 Chronic obstructiv e pulmonary disease 51212351 Active [address], [place], [address], [facility] 4 13:49:36 Lacunar infarction 858059455 Active [address], [place], [address], [facility] 4 18:17:27 Bradycardi a 14947806 Active [address], [place], [address], [facility] 4 18:36:12 Chronic kidney disease stage 3B 019575398 Active 2023 NOted in 1 Note in prior MR as stage 3 D/T HTN. Plan to control BP as care plan. 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 627103845 Active 2023 MARIAM FANG [address], [place], [address], [facility] 08:09:53 Hypokalemi a 27982144 Active 2023 MARIAM FANG [address], [place], [address], [facility] 08:10:59 Sundowning 820824573 Active [address], [place], [address], [facility] 08:12:54 Loose stool 979534788 Active [address], [place], [address], [facility] 09:45:26 Unsteady when walking 19918720 Active [address], [place], [address], [facility] 10:02:59 Decreased diastolic arterial pressure 80894178 Active [address], [place], [address], [facility] 10:04:18 Acute gastrointe stinal hemorrhage 31824814 Active [address], [place], [address], [facility] 06:49:56 Cerebral infarction 752657834 Active [address], [place], [address], [facility] 4 06:50:08 Acute urinary tract infection 950942530 Active 2023 MARIAM FANG [address], [place], [address] , [facility] 4 06:52:30 Queenie yo 182785302 Active [address], [facility] [address], [facility] 4 06:55:39 Problem Notes None recorded. Medical Equipment None Reported. Allergies Allergen ID Allergen Name Allergen Category Reaction Reaction Severity Criticality Documentation Date Start Date Code Code System Note Provider Name and Address Organization Details Recorded Time 84124 chlorthal idone medicatio n Not available Not available high 01/28/2024 2409 RxNorm MARIAM FANG [address], [place], [address], [facility] 4 17:56:24 75953 hydrochlo rothiazid e medicatio n Not available Not available high 01/28/[address], [place], [address] , [facility] 4 17:56:38 Medications Name Sig Start Date Stop Date Status Note LastModified by Organization Details LastModified Time losartan 50 mg tablet Take 1 tablet every day by oral route as directed . 2024 active Per [employer] EMR Not Available Not Available Not Available quetiapin e 25 mg tablet 1 tablet by mouth each night 2023 active Not Available Not Available Not Avai lable atorvasta tin 80 mg tablet Take 1 tablet every day by oral route at bedtime. 2023 active updated from [employer] EMR Not Available Not Available Not Available [...] route as directed . 2023 active per [employer] EMR Not Available Not Available Not Available sucralfat e 1 gram tablet 1 tab by mouth before meals and at night 2024 active Started by [facility] in setting of GI bleed 07/19/20 24 [...] in the AM.Incre ased to 10mg on 11 (take 2 tablets) Not Available Not Available Not Available aspirin 81 mg tablet,de layed release Take 1 tablet every day by oral route. 07/20 completed Pt, with acute hemorrag e and GI bleed at 07/13/20 [facility] hospital in setting of taking aspirin. Aspirin held at this time pending GI consult. Not Available Not Available Not Available amlodipin e 10 mg tablet Take 1 tablet every day by oral route. 2024 active Not Available Not Available Not Avai lable pantopraz ole 40 mg tablet,de layed release Take 1 tablet every day by oral route. 2023 active started by [facility] in setting of GI bleed 07/19/20 24 [...] route as directed . 10/01 completed Per [employer] EMR Not Available Not Available Not Available [...] Organization Details Last Updated DateTime 147.32 cm 18.9 kg/m2 59519.4 7 g 98.6 [degF] 99 % 99 % 54 /min 142 mm[Hg] 86 mm[Hg] DEEDEE PITTMAN MA [facility] 14:27:28 Social History Question Answer Notes LastModified by Organizat ion Details LastModified Time Tobacco Smoking Status Current Every Day Smoker [place], [facility] 11/01/2023 11:33:08 Date Of Most Recent HSA [...] And Wanted Help? (For Example, If You [place] Very Nervous, Lonely, Or Blue; Got Sick [...] Of Your Most Recent Tobacco Screening? 05/14/2024 [email or web address] Information not available 05/14/2024 How Much Tobacco Do You Smoke? 0.5 PPD [email or web address] Information not available 05/14/2024 Has Tobacco Cessation Counseling Been Provided? Yes Information not available 11/01/2023 On What Date Was Tobacco Cessation Counseling Provided? 05/14/2024 [email or web address] Information not available 05/14/2024 Do You Or [...] trivalent, PF 07/09/[address], [place], [address], [facility] 07/09/2024 11:46:08 COVID-19, mRNA, LNP-S, PF, angie-sucrose, 30 mcg/0.3 mL 07/09/[address], [place], [address], [facility] 07/09/2024 11:46:08 Tdap 07/09/2024 completed MARIAM FANG [address], [place], [address], [facility]. 07/09/2024 11:46:08 Past Encounters Encounter ID Performer Location Encounter Start Date Encounter Closed Date Diagnosis/Indication Diagnosis SNOMED-CT Code Diagnosis ICD10 Code Diagnosis Note [id number] MARIAM FANG [facility] [address] [place] [address] 10/01/2024 14:12:47 10/01/2024 16:45:17 Adult health examination 587399449 Z00.00 No concerns on exam findings today. Diarrhea ongoing problem so ordering studies as below. Pt. to forego routine mammogram studies. Diarrhea 03520756 R19.7 Still persisting . Controlled w/Loperimi de. Also, Donna did not vegetable picker Psyllium sent in June so guided to do that. Essential hypertension 66323251 I10 She is getting 12.5 mg of [...] to raise double metoprolol next. Loose stool 985654238 R1 9.5 Added Psyllium back in June, Donna believes it was never picked up. Still using Loperimide . Will get stool studies to r/o infectious cause of this. Mammogram declined 82806 5004 Z53.20 Health Concerns Section Related Observation LastModified by Organization Jaden cordero LastModified Time None Recorded Concern Status LastModified by Organization Details LastModified Time None Recorded Payers Encounter Date Sequence Insurance Name Policy Number Policy Nicole Covered Member ID Nicole Member ID Guarantor Name 10/01/2024 2 [facility] (MEDICAID) Jennifer Archer [id number] Jennifer Archer 10/01/2024 1 [place] [employer] [place] Jennifer Archer [id number] Jennifer Archer Notes Date Note Type Note Provider Name and Address Organization Details Recorded Time 10/01/2024 text/html Pt. 74-here for medicare annual wellness visit. MARIAM FANG [address], [place], [address], [facility]. 10/05/2024 06:22:33 OBGyn Episode No OBEpisode recorded.
[2024-11-05 23:49] LABS: Campylobacter PCR Negative (Negative); Salmonella PCR Negative (Negative); Shiga Toxin PCR Negative (Negative); Shigella/Enteroinvasive Ecoli Negative (Negative)
== END 2024-11-04 18:28 | disposition home or self-care (01) ==
LOC: NCHCN 18:27
PROVIDERS: PCP Student in an Organized Health Care Education/Training Program; Visit Provider Student in an Organized Health Care Education/Training Program
DX: R19.7 Diarrhea, unspecified (principal)
CPT/HCPCS: 87505

== ENCOUNTER 2024-11-12 00:20 | Outpatient (CLI) | payer MEDICARE, MEDICAID, SELFPAY ==
--- NOTE | 2024-11-12 14:42 | DI.CT_ITS ---
Exam(s) CT HEAD WO EXAM: CT HEAD WO CLINICAL HISTORY: ? Residual blood,CVA,I63.511. TECHNIQUE: Imaging Protocol: Axial computed tomography images with coronal and sagittal reformatted images were created and reviewed COMPARISON: CT CT HEAD WO from 07/16/2024 FINDINGS: There are no skull fractures. There is no fluid in the visualized paranasal sinuses. Again noted is evidence of prior infarct in the right occipital parietal region, with the area of enc ephalomalacia being more established from the study of 07/16/2024. There is also now some mild ex va cuo dilatation of the adjacent atrium of the right lateral ventricle. There is presently no evidence of hemorrhage (as was previously present) in the area of the infarct n or elsewhere in the brain. Small 3 millimeter lacunar infarct in the right basal ganglia again noted. There is also abundant bi lateral periventricular hypodensity again noted consistent with chronic small vessel disease IMPRESSION: Established right occipital parietal region infarct. When compared to the prior CT scan of June 23 there is presently no evidence of hemorrhage within the area of infarction (nor elsewhere in the brain). RADIATION DOSE DELIVERED: 841.72mGy.cm Total DLP DATA REPOSITORY: All CT scans at this facility are submitted to the National Radiology Data Registry (NRDR) Dose Index Registry (DIR) with the [employer] (ACR). RADIATION OPTIMIZATION: All CT scans at this facility use at least one of these dose optimization te chniques: automated exposure control; mA and/or kV adjustment per patient size (includes targeted exa ms where dose is matched to clinical indication); or iterative reconstruction.
== END 2024-11-12 00:40 ==
LOC: DI 00:20
PROVIDERS: PCP Student in an Organized Health Care Education/Training Program; Visit Provider Psychiatry & Neurology Neurology
DX: I63.511 Cerebral infarction due to unspecified occlusion or stenosis of right middle cerebral artery (principal)
CPT/HCPCS: 70450

== ENCOUNTER 2024-11-25 13:24 | Outpatient (CLI) | payer MEDICARE, MEDICAID, SELFPAY | END 2024-11-25 13:25 | disposition home or self-care (01) | PROVIDERS: PCP Student in an Organized Health Care Education/Training Program; Visit Provider Psychiatry & Neurology Neurology | DX: I63.511 Cerebral infarction due to unspecified occlusion or stenosis of right middle cerebral artery (principal) | CPT/HCPCS: 93270 ==

== ENCOUNTER 2024-12-14 07:33 | Outpatient (CLI) | payer MEDICARE, MEDICAID, SELFPAY ==
--- NOTE | 2024-12-14 08:47 | W.CARDEVENT ---
Date of service: 12/14/24 Time of Service: 08:47 Cardiac Event Recorder Referring Provider:: Alicia Luu Indications:: Cerebral infarction Cardiac Event Note: This is a cardiac event monitor. Patient was monitored for 9 days and 13 hours. Rhythm throughout was sinus with an average heart rate 63. Minimum was 55, maximum 107. There were rare isolated ventricular ectopic beats. There was no atrial fibrillation, no high-grade AV block, no pauses greater than 3 seconds. No symptoms were reported
== END 2024-12-14 07:34 | disposition home or self-care (01) ==
LOC: CARDOPNVT 07:33
PROVIDERS: PCP Student in an Organized Health Care Education/Training Program; Visit Provider Internal Medicine Cardiovascular Disease
DX: I63.511 Cerebral infarction due to unspecified occlusion or stenosis of right middle cerebral artery (principal)
CPT/HCPCS: 93272

== ENCOUNTER 2025-01-03 12:54 | Outpatient (REF) | payer MEDICARE, MEDICAID, SELFPAY ==
[2025-01-03 15:24] LABS: Abs Immature Grans 0.06 10^3/uL (0.0-0.06); Absolute Basophil Count 0.04 10^3/uL (0.0-0.2); Absolute Eosinophil Count 0.09 10^3/uL (0.0-0.7); Absolute Lymphocyte Count 1.82 10^3/uL (1.2-3.4); Absolute Monocyte Count 0.83 10^3/uL (0.1-0.8); Absolute Neutrophil Count 7.64 10^3/uL (1.2-6.7); Basophils % 0.4 %; Eosinophils % 0.9 %; HCT 26.3 % (36.0-46.0); HGB 8.3 g/dL (11.2-15.7); Immature Grans % 0.6 %; Lymphocytes % 17.4 %; MCHC 31.6 % (32.0-36.0); MCV 92 fL (80-95); MPV 10.8 fL (8.0-11.0); Monocytes % 7.9 %; Neutrophils % 72.8 %; Platelet Count 309 10^3/uL (130-400); RBC 2.86 10^6/uL (3.93-5.22); RDW 13.1 % (11.7-14.6); RDW-SD 43.8 fL; WBC 10.48 10^3/uL (4.4-10.8)
[2025-01-03 15:57] LABS: Iron 20 ug/dL (50-170); Total Iron Binding Capacity 201 ug/dL (250-450); Transferrin Sat 10 % (15-50)
[2025-01-03 16:36] LABS: Anion Gap 13.3 mmol/L (3-11); BUN 29 mg/dL (7-18); CO2 20.7 mmol/L (21.0-32.0); CREATININE 1.6 mg/dL (0.55-1.02); Calcium 8.8 mg/dL (8.5-10.1); Chloride 113 mmol/L (98-107); Estimated GFR 33.63 (mL/min/1.73m2); Ferritin 382 ng/mL (8-252); Glucose 138 mg/dL (74-106); Potassium 3.8 mmol/L (3.5-5.1); Sodium 147 mmol/L (136-145); Vitamin B12 639 pg/mL (193-986)
[2025-01-03 16:38] LABS: Folate > 20.0 ng/mL (8.6-20.0)
== END 2025-01-03 12:55 | disposition home or self-care (01) ==
LOC: NCHCN 12:54
PROVIDERS: PCP Student in an Organized Health Care Education/Training Program; Visit Provider Student in an Organized Health Care Education/Training Program
DX: D64.9 Anemia, unspecified (principal); I10 Essential (primary) hypertension
CPT/HCPCS: 80048; 82607; 82728; 82746; 83540; 83550; 85025